=== PATIENT | male | born 1975 | race Caucasian/White ===

== ENCOUNTER 2018-03-22 00:25 | Inpatient (IN) | payer MEDICAID, SELFPAY ==
[2018-03-23 15:00] VITALS: BP 94/56; PULSE 100; RESP 18; O2SAT 100
[2018-03-23] MEDS: DEXTROSE 5% WATER 500 ML 10 ML IV (16:00)
[2018-03-23] MEDS: SODIUM CHLORIDE 0.9% 500 ML IV ×2 (17:00)
[2018-03-24] VITALS (36 sets, daily range): BP systolic 74–101; BP diastolic 44–63; PULSE 62–107; RESP 15–20; TEMP 36.5–36.8; O2SAT 93–100; BMI 18.0
[2018-03-24] MEDS: CLINDAMYCIN 900 MG/50 ML PIGGYBACK 50 MG IV ×3 (00:40→17:33)
[2018-03-24] MEDS: INSULIN ASPART 100 UNIT/ML INSULN PEN SUBCUT ×3 (00:40→13:12)
[2018-03-24] MEDS: LORazepam 2 MG/ML SYRINGE 1 MG IV ×2 (00:55→17:32)
[2018-03-24] MEDS: LACTATED RINGERS 1,000 ML 200 ML IV (01:09)
[2018-03-24 02:12] LABS: HCO3 ABG 17 mmol/L (23-27); Oxygen Saturation ABG 95 % (95-100); PCO2 ABG 28.9 mmHg (35-45); PO2 ABG 76 mmHg (80-105); pH ABG 7.36 (7.35-7.45)
[2018-03-24 02:14] LABS: TCO2 ABG 17 mmol/L (23-27)
[2018-03-24] MEDS: SODIUM CHLORIDE 0.9% 1,000 ML 1000 ML IV ×2 (03:20→05:00)
[2018-03-24] MEDS: DEXTROSE 5% WATER 500 ML 21 ML IV (04:45)
--- NOTE | 2018-03-24 05:00 | DI.RAD.S_ITS ---
PROCEDURE: XR CHEST 1V INDICATIONS: hypoxia TECHNIQUE: One view of the chest was acquired. COMPARISON: [facility], CT, ABDOMEN/PELVIS WITH CONTRAST, 03/23/2018, 9:21. [facility], CR, CHEST 1 VIEW, 03/23/2018, 16:27. FINDINGS: Surgical changes and devices: Enteric tube is seen with the tip not included in the subareolar projecting below the GE junction. Endotracheal tube is seen with the tip projecting approximately 5 cm above the ana. There is a left PICC line with the tip projecting in the mid SVC. Lungs and pleura: Small bilateral pleural effusions seen on recent CT are not well-visualized radiographically. No pneumothorax. There is dense retrocardiac opacity. Patchy right basilar atelectasis is seen, and possible layering pleural fluid. Mediastinum: Mediastinal contours appear normal. Heart size is normal. Bones and chest wall: No suspicious bony lesions. Overlying soft tissues appear unremarkable. IMPRESSION: Retrocardiac dense opacity suggestive of aspiration/atelectasis versus pneumonia. Please correlate clinically. This appears worsened since yesterday. Mild right basilar atelectasis. Support equipment as above. Dictated by: Sameer Rush M.D. on 03/24/2018 at 10:14 Approved by: Sameer Rush M.D. on 03/24/2018 at 10:16
[2018-03-24 05:22] LABS: Add Manual Diff / Slide Review YES; Hematocrit 28.2 % (41-53); Hemoglobin 9.4 g/dL (13.5-17.5); Mean Corpuscular HGB Conc 33.3 % (30-36); Mean Corpuscular Hemoglobin 28.9 PG (26-34); Mean Corpuscular Volume 86.9 fL (80-100); Platelet Count 295 X10^3/uL (150-400); Red Blood Cell Count 3.25 X10^6/uL (4.5-5.9)
[2018-03-24] MEDS: LACTATED RINGERS 1,000 ML 250 ML IV ×4 (05:23→19:39)
[2018-03-24 05:37] LABS: Lactate (Lactic Acid) 1.1 mmol/L (0.7-2.1)
[2018-03-24 05:38] LABS: Estimated Glomerular Filt Rate > 60.0 mL/min (>60); Glucose 131 mg/dL (70-100); Potassium 3.8 mmol/L (3.4-5.1); Sodium 131 mmol/L (137-145)
[2018-03-24 05:45] LABS: Calcium 5.9 mg/dL (8.4-10.2); HEMOLYSIS < 15 (0-50)
[2018-03-24 05:56] LABS: White Blood Cell Count 33.4 X10^3/uL (4.5-11.0)
[2018-03-24] MEDS: GENTAMICIN 120 MG in SODIUM CHLORIDE 0.9% 100 ML 103 ML IV ×2 (06:07→18:16)
[2018-03-24] MEDS: CALCIUM GLUCONATE 9.3 MEQ in SODIUM CHLORIDE 0.9% 50 ML 70 ML IV (06:24)
[2018-03-24] MEDS: MORPHINE PCA 30 MG/30 ML PCA.VIAL IV ×2 (06:33→21:09)
[2018-03-24 06:39] LABS: Neutrophils Absolute Manual 32398 /uL (3000-5900); Nucleated Red Blood Cells 1 #/Diff; Total Cells Counted 100
[2018-03-24 06:43] LABS: Anisocytosis 2+
[2018-03-24 06:45] LABS: Poikilocytosis 1+
[2018-03-24 06:46] LABS: Burr Cells 1+
--- NOTE | 2018-03-24 07:58 | PM.PNPO.1 ---
Exam Vital Signs (past 8 hours): Vital Signs - 8 hr 03/24/18 00:00 03/24/18 00:30 03/24/18 01:00 Temperature 97.9 F Pulse Rate 62 106 H Respiratory Rate 18 18 Blood Pressure 84/54 L 82/51 L Pulse Oximetry 100 03/24/18 02:13 03/24/18 03:00 03/24/18 04:00 Temperature Pulse Rate 107 H 105 H 98 H Respiratory Rate 18 18 18 Blood Pressure 83/50 L 78/53 L 79/49 L Pulse Oximetry 100 100 03/24/18 04:27 03/24/18 05:00 03/24/18 06:00 Temperature 98.0 F Pulse Rate 95 H 100 H Respiratory Rate 16 16 Blood Pressure 86/49 L 84/52 L Pulse Oximetry 100 03/24/18 07:01 Temperature Pulse Rate 97 H Respiratory Rate 16 Blood Pressure 82/51 L Pulse Oximetry Temperature 98.0 F Temperature 97.9 F Pulse Rate 97 Pulse Rate 100 Pulse Rate 95 Pulse Rate 98 Pulse Rate 105 Pulse Rate 107 Pulse Rate 106 Pulse Rate 62 Respiratory Rate 16 Respiratory Rate 16 Respiratory Rate 16 Respiratory Rate 18 Respiratory Rate 18 Respiratory Rate 18 Respiratory Rate 18 Respiratory Rate 18 Blood Pressure 82/51 Blood Pressure 84/52 Blood Pressure 86/49 Blood Pressure 79/49 Blood Pressure 78/53 Blood Pressure 83/50 Blood Pressure 82/51 Blood Pressure 84/54 Pulse Oximetry 100 Pulse Oximetry 100 Pulse Oximetry 100 Pulse Oximetry 100 Pulse Oximetry 100 Oxygen Delivery Method Mechanical Ventilation Oxygen Delivery Method Mechanical Ventilation Oxygen Delivery Method Mechanical Ventilation Oxygen Delivery Method Mechanical Ventilation Oxygen Flow Rate 30 Oxygen Flow Rate 30 Narrative Exam Narrative: Patient remains intubated on ventilator with the above settings. However, he is arousable on minimal Diprivan drip receiving as needed Ativan intravenously. Opens eyes to commands. Moves all extremities. Regular rate and rhythm. Strip shows sinus rhythm at 96 beats per minute. Urine output is marginal at just about 30 cc/hour overnight in response to fluid boluses and single unit of blood transfusion. Overall he is approximately 10 L positive since surgery yesterday afternoon. CVP measures 4 currently but has been as high as 6 overnight with fluid boluses Abdomen is soft and minimally distended currently. Appropriately tender to palpation. Wound VAC remains in place with good suction. Isacc-Lopez drains are collecting serous fluid only. Output has slowed overnight to approximately 50 cc every 2-3 hours per drain. Ileostomy is pink and viable and well perfused. No output in the appliance. Extremities show no clubbing or cyanosis. He no longer exhibits mottling at the knees and pretibial areas. He is beginning to manifest trace edema of the hands and feet. Objective Labs CBC & Chem 7: 03/24/18 05:00 03/24/18 05:00 Labs: Laboratory Results - last 24 hr 03/21/18 03/21/18 03/21/18 20:34 20:34 20:34 WBC 17.0 H RBC 2.93 L Hgb 8.5 L Hct 26.0 L MCV 88.9 MCH 29.0 MCHC 32.7 RDW 14.7 Plt Count 782 H Neutrophils % Total Counted Seg Neuts % (Manual) 65 Band Neutrophils % 23 H Lymphocytes % Seg Neutrophils % Lymphocytes % (Manual) 6 L Monocytes % Eosinophils % Monocytes % (Manual) Basophils % Metamyelocytes % 1 H Myelocytes % 2 H Nucleated RBC % Neutrophils # (Manual) 57389 H Absolute Neutrophils Monocytes (Manual) 3 Nucleated RBCs Differential Comment Toxic Granulation POSITIVE H Hypochromasia 2+ H Anisocytosis Poikilocytosis Yulissa Cells Specimen Type pCO2 pO2 HCO3 Total CO2 Base Excess ABG pH ABG pCO2 ABG pO2 ABG HCO3 ABG Total CO2 ABG O2 Saturation ABG Base Excess O2 Sat Above Inf Vena Cav FiO2 Sodium 122 L Potassium 3.6 Chloride 87.0 L Carbon Dioxide 27.0 BUN 13.0 Creatinine 0.60 L Estimated GFR Estimated GFR (MDRD) >60.0 BUN/Creatinine Ratio 21.7 Glucose 125 H Lactic Acid 1.0 Lactate Calcium 7.3 L Iron TIBC % Saturation Transferrin Ferritin Total Bilirubin 0.6 AST 27 ALT 32 Alkaline Phosphatase 117 Total Protein 5.4 L Albumin 2.2 L Globulin 3.2 Albumin/Globulin Ratio 0.7 L Amylase < 30 L Lipase < 10 L Vitamin B12 Folate Urine WBC Ur Culture Indicated? Stool Aeromonas Cult Stl C. cayetanensis PCR Stool Rotavirus A PCR Stool Astrovirus (PCR) Stool Campylobacter PCR Stool Cryptosporidium PCR Stl Enterotoxigenic E PCR Stool EPEC (PCR) Stool EAEC (PCR) Stool Giardia Lamblia PCR Stool Sapovirus (PCR) Stl Shiga-like Tx 1 PCR Stl P. shigelloides PCR Stl Shigella/EIEC PCR St Y.enterocolitica PCR Stl Vibrio cholera PCR Stl Norovirus GI/GII PCR Adenovirus (PCR) C. difficile Tox (PCR) E. histolytica Antibody E. coli (PCR) Salmonella (PCR) MRSA Surveill Initial Blood Type Antibody Screen Antibody Identification Antigen Identification Crossmatch (AHG) 03/21/18 03/22/18 03/22/18 22:09 06:05 06:05 WBC 16.3 H RBC 2.52 L Hgb 7.4 L Hct 22.5 L MCV 89.4 MCH 29.3 MCHC 32.7 RDW 14.8 Plt Count 738 H Neutrophils % Total Counted Seg Neuts % (Manual) 70 Band Neutrophils % 22 H Lymphocytes % Seg Neutrophils % Lymphocytes % (Manual) 6 L Monocytes % Eosinophils % Monocytes % (Manual) Basophils % Metamyelocytes % Myelocytes % Nucleated RBC % 2 H Neutrophils # (Manual) 56661 H Absolute Neutrophils Monocytes (Manual) 2 Nucleated RBCs Differential Comment Toxic Granulation POSITIVE H Hypochromasia 2+ H Anisocytosis Poikilocytosis [place] Cells Specimen Type pCO2 pO2 HCO3 Total CO2 Base Excess ABG pH ABG pCO2 ABG pO2 ABG HCO3 ABG Total CO2 ABG O2 Saturation ABG Base Excess O2 Sat Above Inf Vena Cav FiO2 Sodium 130 L Potassium 3.8 Chloride 96.0 L Carbon Dioxide 26.0 BUN 10.0 Creatinine 0.40 L Estimated GFR Estimated GFR (MDRD) >60.0 BUN/Creatinine Ratio 25.0 Glucose 254 H D Lactic Acid Lactate Calcium 7.1 L Iron TIBC % Saturation Transferrin Ferritin Total Bilirubin AST ALT Alkaline Phosphatase Total Protein Albumin Globulin Albumin/Globulin Ratio Amylase Lipase Vitamin B12 Folate Urine WBC 1-5/HPF Ur Culture Indicated? SPECIMEN CULTURED Stool Aeromonas Cult Stl C. cayetanensis PCR Stool Rotavirus A PCR Stool Astrovirus (PCR) Stool Campylobacter PCR Stool Cryptosporidium PCR Stl Enterotoxigenic E PCR Stool EPEC (PCR) Stool EAEC (PCR) Stool Giardia Lamblia PCR Stool Sapovirus (PCR) Stl Shiga-like Tx 1 PCR Stl P. shigelloides PCR Stl Shigella/EIEC PCR St Y.enterocolitica PCR Stl Vibrio cholera PCR Stl Norovirus GI/GII PCR Adenovirus (PCR) C. difficile Tox (PCR) E. histolytica Antibody E. coli (PCR) Salmonella (PCR) MRSA Surveill Initial Blood Type Antibody Screen Antibody Identification Antigen Identification Crossmatch (AHG) 03/22/18 03/22/18 03/22/18 06:05 06:05 07:15 WBC RBC Hgb Hct MCV MCH MCHC RDW Plt Count Neutrophils % Total Counted Seg Neuts % (Manual) Band Neutrophils % Lymphocytes % Seg Neutrophils % Lymphocytes % (Manual) Monocytes % Eosinophils % Monocytes % (Manual) Basophils % Metamyelocytes % Myelocytes % Nucleated RBC % Neutrophils # (Manual) Absolute Neutrophils Monocytes (Manual) Nucleated RBCs Differential Comment Toxic Granulation Hypochromasia Anisocytosis Poikilocytosis Yulissa Cells Specimen Type pCO2 pO2 HCO3 Total CO2 Base Excess ABG pH ABG pCO2 ABG pO2 ABG HCO3 ABG Total CO2 ABG O2 Saturation ABG Base Excess O2 Sat Above Inf Vena Cav FiO2 Sodium Potassium Chloride Carbon Dioxide BUN Creatinine Estimated GFR Estimated GFR (MDRD) BUN/Creatinine Ratio Glucose Lactic Acid Lactate Calcium Iron 24 L TIBC 131 L % Saturation 18 L Transferrin < 80.00 L Ferritin 1050.0 H Total Bilirubin AST ALT Alkaline Phosphatase Total Protein Albumin Globulin Albumin/Globulin Ratio Amylase Lipase Vitamin B12 Folate Urine WBC Ur Culture Indicated? Stool Aeromonas Cult Stl C. cayetanensis PCR Stool Rotavirus A PCR Stool Astrovirus (PCR) Stool Campylobacter PCR Stool Cryptosporidium PCR Stl Enterotoxigenic E PCR Stool EPEC (PCR) Stool EAEC (PCR) Stool Giardia Lamblia PCR Stool Sapovirus (PCR) Stl Shiga-like Tx 1 PCR Stl P. shigelloides PCR Stl Shigella/EIEC PCR St Y.enterocolitica PCR Stl Vibrio cholera PCR Stl Norovirus GI/GII PCR Adenovirus (PCR) C. difficile Tox (PCR) E. histolytica Antibody E. coli (PCR) Salmonella (PCR) MRSA Surveill Initial Blood Type O Positive Antibody Screen Positive Antibody Identification Anti-K Antigen Identification K Antigen - NEGATIVE Crossmatch (AHG) See Detail 03/22/18 03/22/18 03/23/18 08:23 Unknown 05:20 WBC RBC Hgb Hct MCV MCH MCHC RDW Plt Count Neutrophils % Total Counted Seg Neuts % (Manual) Band Neutrophils % Lymphocytes % Seg Neutrophils % Lymphocytes % (Manual) Monocytes % Eosinophils % Monocytes % (Manual) Basophils % Metamyelocytes % Myelocytes % Nucleated RBC % Neutrophils # (Manual) Absolute Neutrophils Monocytes (Manual) Nucleated RBCs Differential Comment Toxic Granulation Hypochromasia Anisocytosis Poikilocytosis Yulissa Cells Specimen Type pCO2 pO2 HCO3 Total CO2 Base Excess ABG pH ABG pCO2 ABG pO2 ABG HCO3 ABG Total CO2 ABG O2 Saturation ABG Base Excess O2 Sat Above Inf Vena Cav FiO2 Sodium 135 L Potassium 3.8 Chloride 103.0 Carbon Dioxide 19.0 L BUN 15.0 Creatinine 0.40 L Estimated GFR Estimated GFR (MDRD) >60.0 BUN/Creatinine Ratio 37.5 H Glucose 141 H D Lactic Acid Lactate Calcium 7.6 L Iron TIBC % Saturation Transferrin Ferritin Total Bilirubin AST ALT Alkaline Phosphatase Total Protein Albumin Globulin Albumin/Globulin Ratio Amylase Lipase Vitamin B12 >1000 H Folate 7.4 Urine WBC Ur Culture Indicated? Stool Aeromonas Cult NOT DETECTED Stl C. cayetanensis PCR NOT DETECTED Stool Rotavirus A PCR NOT DETECTED Stool Astrovirus (PCR) NOT DETECTED Stool Campylobacter PCR NOT DETECTED Stool Cryptosporidium PCR NOT DETECTED Stl Enterotoxigenic E PCR NOT DETECTED Stool EPEC (PCR) NOT DETECTED Stool EAEC (PCR) NOT DETECTED Stool Giardia Lamblia PCR NOT DETECTED Stool Sapovirus (PCR) NOT DETECTED Stl Shiga-like Tx 1 PCR NOT DETECTED Stl P. shigelloides PCR NOT DETECTED Stl Shigella/EIEC PCR NOT DETECTED St Y.enterocolitica PCR NOT DETECTED Stl Vibrio cholera PCR NOT DETECTED Stl Norovirus GI/GII PCR NOT DETECTED Adenovirus (PCR) NOT DETECTED C. difficile Tox (PCR) NOT DETECTED E. histolytica Antibody NOT DETECTED E. coli (PCR) NOT DETECTED Salmonella (PCR) NOT DETECTED MRSA Surveill Initial Blood Type Antibody Screen Antibody Identification Antigen Identification Crossmatch (AHG) 03/23/18 03/23/18 03/23/18 05:20 16:00 16:49 WBC 35.7 H* D RBC 4.62 Hgb 13.0 L Hct 40.7 L MCV 88.1 MCH 28.0 MCHC 31.8 RDW 17.4 H Plt Count 741 H Neutrophils % Total Counted Seg Neuts % (Manual) 68 Band Neutrophils % 25 H Lymphocytes % Seg Neutrophils % Lymphocytes % (Manual) 3 L Monocytes % Eosinophils % Monocytes % (Manual) Basophils % Metamyelocytes % Myelocytes % 1 H Nucleated RBC % Neutrophils # (Manual) 75676 H Absolute Neutrophils Monocytes (Manual) 3 Nucleated RBCs Differential Comment Toxic Granulation POSITIVE H Hypochromasia Anisocytosis 2+ H Poikilocytosis [place] Cells Specimen Type RT RADIAL pCO2 38.4 pO2 170 H HCO3 17.4 L Total CO2 19 L Base Excess -10.0 L ABG pH 7.26 L* ABG pCO2 ABG pO2 ABG HCO3 ABG Total CO2 ABG O2 Saturation ABG Base Excess O2 Sat Above Inf Vena Cav 99.0 FiO2 0.50 Sodium Potassium Chloride Carbon Dioxide BUN Creatinine Estimated GFR Estimated GFR (MDRD) BUN/Creatinine Ratio Glucose Lactic Acid Lactate Calcium Iron TIBC % Saturation Transferrin Ferritin Total Bilirubin AST ALT Alkaline Phosphatase Total Protein Albumin Globulin Albumin/Globulin Ratio Amylase Lipase Vitamin B12 Folate Urine WBC Ur Culture Indicated? Stool Aeromonas Cult Stl C. cayetanensis PCR Stool Rotavirus A PCR Stool Astrovirus (PCR) Stool Campylobacter PCR Stool Cryptosporidium PCR Stl Enterotoxigenic E PCR Stool EPEC (PCR) Stool EAEC (PCR) Stool Giardia Lamblia PCR Stool Sapovirus (PCR) Stl Shiga-like Tx 1 PCR Stl P. shigelloides PCR Stl Shigella/EIEC PCR St Y.enterocolitica PCR Stl Vibrio cholera PCR Stl Norovirus GI/GII PCR Adenovirus (PCR) C. difficile Tox (PCR) E. histolytica Antibody E. coli (PCR) Salmonella (PCR) MRSA Surveill Initial Positive for MRSA H Blood Type Antibody Screen Antibody Identification Antigen Identification Crossmatch (AHG) 03/23/18 03/23/18 03/23/18 16:50 16:50 Unknown WBC 38.2 H* RBC 3.55 L Hgb 11.0 L 10.1 L Hct 34.9 L 31.3 L MCV 88.0 MCH 28.5 MCHC 32.3 RDW 17.5 H Plt Count 619 H Neutrophils % 96.9 H Total Counted Seg Neuts % (Manual) Band Neutrophils % Lymphocytes % 2.4 L Seg Neutrophils % Lymphocytes % (Manual) Monocytes % 0.5 L Eosinophils % 0.0 L Monocytes % (Manual) Basophils % 0.2 Metamyelocytes % Myelocytes % Nucleated RBC % Neutrophils # (Manual) Absolute Neutrophils 59093 H Monocytes (Manual) Nucleated RBCs Differential Comment Toxic Granulation Hypochromasia Anisocytosis Poikilocytosis Yulissa Cells Specimen Type pCO2 pO2 HCO3 Total CO2 Base Excess ABG pH ABG pCO2 ABG pO2 ABG HCO3 ABG Total CO2 ABG O2 Saturation ABG Base Excess O2 Sat Above Inf Vena Cav FiO2 Sodium 132 L Potassium 3.9 Chloride 108.0 H Carbon Dioxide 16.0 L BUN 14.0 Creatinine 0.40 L Estimated GFR Estimated GFR (MDRD) >60.0 BUN/Creatinine Ratio 35.0 H Glucose 133 H Lactic Acid Lactate Calcium 5.9 L* D Iron TIBC % Saturation Transferrin Ferritin Total Bilirubin AST ALT Alkaline Phosphatase Total Protein Albumin Globulin Albumin/Globulin Ratio Amylase Lipase Vitamin B12 Folate Urine WBC Ur Culture Indicated? Stool Aeromonas Cult Stl C. cayetanensis PCR Stool Rotavirus A PCR Stool Astrovirus (PCR) Stool Campylobacter PCR Stool Cryptosporidium PCR Stl Enterotoxigenic E PCR Stool EPEC (PCR) Stool EAEC (PCR) Stool Giardia Lamblia PCR Stool Sapovirus (PCR) Stl Shiga-like Tx 1 PCR Stl P. shigelloides PCR Stl Shigella/EIEC PCR St Y.enterocolitica PCR Stl Vibrio cholera PCR Stl Norovirus GI/GII PCR Adenovirus (PCR) C. difficile Tox (PCR) E. histolytica Antibody E. coli (PCR) Salmonella (PCR) MRSA Surveill Initial Blood Type Antibody Screen Antibody Identification Antigen Identification Crossmatch (AHG) 03/23/18 03/24/18 03/24/18 Unknown 01:40 05:00 WBC 40.7 H* 33.4 H* RBC 3.83 L 3.25 L Hgb 10.8 L 9.4 L Hct 34.1 L 28.2 L MCV 89.2 86.9 MCH 28.2 28.9 MCHC 31.6 33.3 RDW 17.9 H 17.0 H Plt Count 588 H 295 Neutrophils % 97.8 H Total Counted 100 Seg Neuts % (Manual) Band Neutrophils % 19.0 H Lymphocytes % 1.6 L Seg Neutrophils % 78.0 H Lymphocytes % (Manual) 1.0 L Monocytes % 0.3 L Eosinophils % 0.1 L Monocytes % (Manual) 1.0 L Basophils % 0.2 Metamyelocytes % 1.0 H Myelocytes % Nucleated RBC % Neutrophils # (Manual) 67104 H Absolute Neutrophils 75714 H Monocytes (Manual) Nucleated RBCs 1 H Differential Comment Not Reportable Toxic Granulation Hypochromasia Anisocytosis 2+ H Poikilocytosis 1+ H Yulissa Cells 1+ H Specimen Type pCO2 pO2 HCO3 Total CO2 Base Excess ABG pH 7.36 ABG pCO2 28.9 L ABG pO2 76 L ABG HCO3 17 L ABG Total CO2 17 L ABG O2 Saturation 95 ABG Base Excess -9.0 L O2 Sat Above Inf Vena Cav FiO2 0.30 Sodium Potassium Chloride Carbon Dioxide BUN Creatinine Estimated GFR Estimated GFR (MDRD) BUN/Creatinine Ratio Glucose Lactic Acid Lactate Calcium Iron TIBC % Saturation Transferrin Ferritin Total Bilirubin AST ALT Alkaline Phosphatase Total Protein Albumin Globulin Albumin/Globulin Ratio Amylase Lipase Vitamin B12 Folate Urine WBC Ur Culture Indicated? Stool Aeromonas Cult Stl C. cayetanensis PCR Stool Rotavirus A PCR Stool Astrovirus (PCR) Stool Campylobacter PCR Stool Cryptosporidium PCR Stl Enterotoxigenic E PCR Stool EPEC (PCR) Stool EAEC (PCR) Stool Giardia Lamblia PCR Stool Sapovirus (PCR) Stl Shiga-like Tx 1 PCR Stl P. shigelloides PCR Stl Shigella/EIEC PCR St Y.enterocolitica PCR Stl Vibrio cholera PCR Stl Norovirus GI/GII PCR Adenovirus (PCR) C. difficile Tox (PCR) E. histolytica Antibody E. coli (PCR) Salmonella (PCR) MRSA Surveill Initial Blood Type Antibody Screen Antibody Identification Antigen Identification Crossmatch (AHG) 03/24/18 03/24/18 05:00 05:00 WBC RBC Hgb Hct MCV MCH MCHC RDW Plt Count Neutrophils % Total Counted Seg Neuts % (Manual) Band Neutrophils % Lymphocytes % Seg Neutrophils % Lymphocytes % (Manual) Monocytes % Eosinophils % Monocytes % (Manual) Basophils % Metamyelocytes % Myelocytes % Nucleated RBC % Neutrophils # (Manual) Absolute Neutrophils Monocytes (Manual) Nucleated RBCs Differential Comment Toxic Granulation Hypochromasia Anisocytosis Poikilocytosis [place] Cells Specimen Type pCO2 pO2 HCO3 Total CO2 Base Excess ABG pH ABG pCO2 ABG pO2 ABG HCO3 ABG Total CO2 ABG O2 Saturation ABG Base Excess O2 Sat Above Inf Vena Cav FiO2 Sodium 131 L Potassium 3.8 Chloride 109.0 H Carbon Dioxide 17.0 L BUN 16.0 Creatinine 0.50 L Estimated GFR > 60.0 Estimated GFR (MDRD) BUN/Creatinine Ratio 32.0 H Glucose 131 H Lactic Acid Lactate 1.1 Calcium 5.9 L* Iron TIBC % Saturation Transferrin Ferritin Total Bilirubin AST ALT Alkaline Phosphatase Total Protein Albumin Globulin Albumin/Globulin Ratio Amylase Lipase Vitamin B12 Folate Urine WBC Ur Culture Indicated? Stool Aeromonas Cult Stl C. cayetanensis PCR Stool Rotavirus A PCR Stool Astrovirus (PCR) Stool Campylobacter PCR Stool Cryptosporidium PCR Stl Enterotoxigenic E PCR Stool EPEC (PCR) Stool EAEC (PCR) Stool Giardia Lamblia PCR Stool Sapovirus (PCR) Stl Shiga-like Tx 1 PCR Stl P. shigelloides PCR Stl Shigella/EIEC PCR St Y.enterocolitica PCR Stl Vibrio cholera PCR Stl Norovirus GI/GII PCR Adenovirus (PCR) C. difficile Tox (PCR) E. histolytica Antibody E. coli (PCR) Salmonella (PCR) MRSA Surveill Initial Blood Type Antibody Screen Antibody Identification Antigen Identification Crossmatch (AHG) A/P Post-op Time Spent With Patient Total time spent is greater than 50% in coordination of care (as documented) at patient's floor/unit 43-year-old male postoperative day 1 from subtotal colectomy emergently for perforated toxic megacolon secondary to ulcerative colitis. He is responding to resuscitation but continues to require significant volume as expected. We will continue aggressive isotonic fluid resuscitation. If he continues to respond well then potentially start total parenteral nutrition this evening or tomorrow depending on his status. Continue triple antibiotics consisting of Levaquin, gentamicin, and clindamycin. Continue ventilatory support current we with low level of sedation as he is likely to continue to experience significant fluid shifts with pulmonary edema. I anticipate that his pulmonary status will decline in the next 24-48 hours. Once volume status is stable then we could wean to extubate at that time. DVT prophylaxis consisted of SCDs and subcutaneous Lovenox daily. Momin catheter remains in place as necessary for prolonged immobility in the ICU requiring strict I&Os. Consult has been initiated the wound care nurse for wound VAC and ostomy management. Supplement calcium today. Appreciate Internal Medicine assistance. Blood sugars are well controlled at the most like scale insulin. Continue to monitor. Patient's prognosis remains quite guarded as previously documented. 25 - 35 minutes
[2018-03-24] MEDS: PANTOPRAZOLE 40 MG VIAL IV (08:59)
--- NOTE | 2018-03-24 10:06 | CM.DPNOTE ---
DCP Ongoing Assessment: Case reviewed, EMR reviewed, and met with patient???s nurse in ICU, Ashley. Did not speak with the patient who is on ventilator. Please see ???hard copy??? Initial DCP Assmt and Consult note copied and with patient face sheet, or review these notes in [facility]. Pt now in ICU, previously in room 212. He underwent a very extensive abdominal surgery with Dr. Levin on 03/23 (OP note also copied and avail with face sheet, and also avail in [employer]). Per MD Levin note on 03/24, pt is arousable and on ventilator, sedated, able to move extremities on command. Per nurse Ashley, pt remains on ventilator, has ileostomy, is receiving IV fluids, and they may start TPN later today. He is receiving IV ABX x 3 types. She states no patient family members have been in to see pt since surgery as far as she knows. Primary payor is: Remains as self-pay; unable to verify with patient. Plan: DCP to follow. Unsure of needs at this point post-operatively, and pt unable to communicate. Patti Aguero RN
[2018-03-24] MEDS: SODIUM CHLORIDE 0.9% FLUSH 10 ML IV ×3 (10:11→21:08)
[2018-03-24] MEDS: levoFLOXacin 750 MG/150 ML PIGGYBACK 100 MG IV (11:58)
[2018-03-24] MEDS: MINERAL OIL/PETROL OPHTH OINT 3.5 GM 1 APPLIC EYE-BOTH (13:12)
[2018-03-24] MEDS: PROPOFOL 1,000 MG/100 ML VIAL 3.996 MG IV (14:29)
--- NOTE | 2018-03-24 14:59 | PC.NURSE ---
pt intubated and sedated. propofol gtt at 12mcg/kg/min. ivf infusing 250ml/hr. art line intact and correlates with cuff. CVP 3. etco2 not working on monitor at this time. pt's mom in room. oral care done q2hr. wrists unrestrained at this time.
--- NOTE | 2018-03-24 15:03 | PC.NURSE ---
morphine continuous 8hr total 26.6ml
--- NOTE | 2018-03-24 15:18 | PM.PN.1 ---
Subjective Interval history: Patient remains on vent postop colectomy for perforated bowel. Date Patient Seen: 03/24/18 Time Patient Seen: 10:00 Exam Vital Signs (past 8 hours): Vital Signs - 8 hr 03/24/18 08:09 03/24/18 08:40 03/24/18 09:54 Temperature 98 F Pulse Rate 96 H Respiratory Rate 16 Blood Pressure 94/52 L Pulse Oximetry 100 100 100 03/24/18 10:07 03/24/18 12:00 03/24/18 12:47 Temperature 98.3 F 98.1 F Pulse Rate 98 H Respiratory Rate 16 16 Blood Pressure 96/50 L 82/44 L Pulse Oximetry 100 100 100 Temperature 98.1 F Temperature 98.3 F Temperature 98 F Pulse Rate 98 Pulse Rate 96 Respiratory Rate 16 Respiratory Rate 16 Respiratory Rate 16 Blood Pressure 82/44 Blood Pressure 96/50 Blood Pressure 94/52 Pulse Oximetry 100 Pulse Oximetry 100 Pulse Oximetry 100 Pulse Oximetry 100 Pulse Oximetry 100 Pulse Oximetry 100 Fraction of Inspired Oxygen 30 Oxygen Delivery Method Mechanical Ventilation Oxygen Delivery Method Mechanical Ventilation Oxygen Delivery Method Mechanical Ventilation Objective Labs CBC & Chem 7: 03/24/18 05:00 03/24/18 05:00 Labs: Laboratory Results - last 24 hr 03/21/18 03/21/18 03/21/18 20:34 20:34 20:34 WBC 17.0 H RBC 2.93 L Hgb 8.5 L Hct 26.0 L MCV 88.9 MCH 29.0 MCHC 32.7 RDW 14.7 Plt Count 782 H Neutrophils % Total Counted Seg Neuts % (Manual) 65 Band Neutrophils % 23 H Lymphocytes % Seg Neutrophils % Lymphocytes % (Manual) 6 L Monocytes % Eosinophils % Monocytes % (Manual) Basophils % Metamyelocytes % 1 H Myelocytes % 2 H Nucleated RBC % Neutrophils # (Manual) 02305 H Absolute Neutrophils Monocytes (Manual) 3 Nucleated RBCs Differential Comment Toxic Granulation POSITIVE H Hypochromasia 2+ H Anisocytosis Poikilocytosis Yulissa Cells Specimen Type pCO2 pO2 HCO3 Total CO2 Base Excess ABG pH ABG pCO2 ABG pO2 ABG HCO3 ABG Total CO2 ABG O2 Saturation ABG Base Excess O2 Sat Above Inf Vena Cav FiO2 Sodium 122 L Potassium 3.6 Chloride 87.0 L Carbon Dioxide 27.0 BUN 13.0 Creatinine 0.60 L Estimated GFR Estimated GFR (MDRD) >60.0 BUN/Creatinine Ratio 21.7 Glucose 125 H Lactic Acid 1.0 Lactate Calcium 7.3 L Iron TIBC % Saturation Transferrin Ferritin Total Bilirubin 0.6 AST 27 ALT 32 Alkaline Phosphatase 117 Total Protein 5.4 L Albumin 2.2 L Globulin 3.2 Albumin/Globulin Ratio 0.7 L Amylase < 30 L Lipase < 10 L Vitamin B12 Folate Urine WBC Ur Culture Indicated? Stool Aeromonas Cult Stl C. cayetanensis PCR Stool Rotavirus A PCR Stool Astrovirus (PCR) Stool Campylobacter PCR Stool Cryptosporidium PCR Stl Enterotoxigenic E PCR Stool EPEC (PCR) Stool EAEC (PCR) Stool Giardia Lamblia PCR Stool Sapovirus (PCR) Stl Shiga-like Tx 1 PCR Stl P. shigelloides PCR Stl Shigella/EIEC PCR St Y.enterocolitica PCR Stl Vibrio cholera PCR Stl Norovirus GI/GII PCR Adenovirus (PCR) C. difficile Tox (PCR) E. histolytica Antibody E. coli (PCR) Salmonella (PCR) MRSA Surveill Initial Blood Type Antibody Screen Antibody Identification Antigen Identification Crossmatch (AHG) 03/21/18 03/22/18 03/22/18 22:09 06:05 06:05 WBC 16.3 H RBC 2.52 L Hgb 7.4 L Hct 22.5 L MCV 89.4 MCH 29.3 MCHC 32.7 RDW 14.8 Plt Count 738 H Neutrophils % Total Counted Seg Neuts % (Manual) 70 Band Neutrophils % 22 H Lymphocytes % Seg Neutrophils % Lymphocytes % (Manual) 6 L Monocytes % Eosinophils % Monocytes % (Manual) Basophils % Metamyelocytes % Myelocytes % Nucleated RBC % 2 H Neutrophils # (Manual) 13726 H Absolute Neutrophils Monocytes (Manual) 2 Nucleated RBCs Differential Comment Toxic Granulation POSITIVE H Hypochromasia 2+ H Anisocytosis Poikilocytosis Hettinger Cells Specimen Type pCO2 pO2 HCO3 Total CO2 Base Excess ABG pH ABG pCO2 ABG pO2 ABG HCO3 ABG Total CO2 ABG O2 Saturation ABG Base Excess O2 Sat Above Inf Vena Cav FiO2 Sodium 130 L Potassium 3.8 Chloride 96.0 L Carbon Dioxide 26.0 BUN 10.0 Creatinine 0.40 L Estimated GFR Estimated GFR (MDRD) >60.0 BUN/Creatinine Ratio 25.0 Glucose 254 H D Lactic Acid Lactate Calcium 7.1 L Iron TIBC % Saturation Transferrin Ferritin Total Bilirubin AST ALT Alkaline Phosphatase Total Protein Albumin Globulin Albumin/Globulin Ratio Amylase Lipase Vitamin B12 Folate Urine WBC 1-5/HPF Ur Culture Indicated? SPECIMEN CULTURED Stool Aeromonas Cult Stl C. cayetanensis PCR Stool Rotavirus A PCR Stool Astrovirus (PCR) Stool Campylobacter PCR Stool Cryptosporidium PCR Stl Enterotoxigenic E PCR Stool EPEC (PCR) Stool EAEC (PCR) Stool Giardia Lamblia PCR Stool Sapovirus (PCR) Stl Shiga-like Tx 1 PCR Stl P. shigelloides PCR Stl Shigella/EIEC PCR St Y.enterocolitica PCR Stl Vibrio cholera PCR Stl Norovirus GI/GII PCR Adenovirus (PCR) C. difficile Tox (PCR) E. histolytica Antibody E. coli (PCR) Salmonella (PCR) MRSA Surveill Initial Blood Type Antibody Screen Antibody Identification Antigen Identification Crossmatch (AHG) 03/22/18 03/22/18 03/22/18 06:05 06:05 07:15 WBC RBC Hgb Hct MCV MCH MCHC RDW Plt Count Neutrophils % Total Counted Seg Neuts % (Manual) Band Neutrophils % Lymphocytes % Seg Neutrophils % Lymphocytes % (Manual) Monocytes % Eosinophils % Monocytes % (Manual) Basophils % Metamyelocytes % Myelocytes % Nucleated RBC % Neutrophils # (Manual) Absolute Neutrophils Monocytes (Manual) Nucleated RBCs Differential Comment Toxic Granulation Hypochromasia Anisocytosis Poikilocytosis Yulissa Cells Specimen Type pCO2 pO2 HCO3 Total CO2 Base Excess ABG pH ABG pCO2 ABG pO2 ABG HCO3 ABG Total CO2 ABG O2 Saturation ABG Base Excess O2 Sat Above Inf Vena Cav FiO2 Sodium Potassium Chloride Carbon Dioxide BUN Creatinine Estimated GFR Estimated GFR (MDRD) BUN/Creatinine Ratio Glucose Lactic Acid Lactate Calcium Iron 24 L TIBC 131 L % Saturation 18 L Transferrin < 80.00 L Ferritin 1050.0 H Total Bilirubin AST ALT Alkaline Phosphatase Total Protein Albumin Globulin Albumin/Globulin Ratio Amylase Lipase Vitamin B12 Folate Urine WBC Ur Culture Indicated? Stool Aeromonas Cult Stl C. cayetanensis PCR Stool Rotavirus A PCR Stool Astrovirus (PCR) Stool Campylobacter PCR Stool Cryptosporidium PCR Stl Enterotoxigenic E PCR Stool EPEC (PCR) Stool EAEC (PCR) Stool Giardia Lamblia PCR Stool Sapovirus (PCR) Stl Shiga-like Tx 1 PCR Stl P. shigelloides PCR Stl Shigella/EIEC PCR St Y.enterocolitica PCR Stl Vibrio cholera PCR Stl Norovirus GI/GII PCR Adenovirus (PCR) C. difficile Tox (PCR) E. histolytica Antibody E. coli (PCR) Salmonella (PCR) MRSA Surveill Initial Blood Type O Positive Antibody Screen Positive Antibody Identification Anti-K Antigen Identification K Antigen - NEGATIVE Crossmatch (AHG) See Detail 03/22/18 03/22/18 03/23/18 08:23 Unknown 05:20 WBC RBC Hgb Hct MCV MCH MCHC RDW Plt Count Neutrophils % Total Counted Seg Neuts % (Manual) Band Neutrophils % Lymphocytes % Seg Neutrophils % Lymphocytes % (Manual) Monocytes % Eosinophils % Monocytes % (Manual) Basophils % Metamyelocytes % Myelocytes % Nucleated RBC % Neutrophils # (Manual) Absolute Neutrophils Monocytes (Manual) Nucleated RBCs Differential Comment Toxic Granulation Hypochromasia Anisocytosis Poikilocytosis Yulissa Cells Specimen Type pCO2 pO2 HCO3 Total CO2 Base Excess ABG pH ABG pCO2 ABG pO2 ABG HCO3 ABG Total CO2 ABG O2 Saturation ABG Base Excess O2 Sat Above Inf Vena Cav FiO2 Sodium 135 L Potassium 3.8 Chloride 103.0 Carbon Dioxide 19.0 L BUN 15.0 Creatinine 0.40 L Estimated GFR Estimated GFR (MDRD) >60.0 BUN/Creatinine Ratio 37.5 H Glucose 141 H D Lactic Acid Lactate Calcium 7.6 L Iron TIBC % Saturation Transferrin Ferritin Total Bilirubin AST ALT Alkaline Phosphatase Total Protein Albumin Globulin Albumin/Globulin Ratio Amylase Lipase Vitamin B12 >1000 H Folate 7.4 Urine WBC Ur Culture Indicated? Stool Aeromonas Cult NOT DETECTED Stl C. cayetanensis PCR NOT DETECTED Stool Rotavirus A PCR NOT DETECTED Stool Astrovirus (PCR) NOT DETECTED Stool Campylobacter PCR NOT DETECTED Stool Cryptosporidium PCR NOT DETECTED Stl Enterotoxigenic E PCR NOT DETECTED Stool EPEC (PCR) NOT DETECTED Stool EAEC (PCR) NOT DETECTED Stool Giardia Lamblia PCR NOT DETECTED Stool Sapovirus (PCR) NOT DETECTED Stl Shiga-like Tx 1 PCR NOT DETECTED Stl P. shigelloides PCR NOT DETECTED Stl Shigella/EIEC PCR NOT DETECTED St Y.enterocolitica PCR NOT DETECTED Stl Vibrio cholera PCR NOT DETECTED Stl Norovirus GI/GII PCR NOT DETECTED Adenovirus (PCR) NOT DETECTED C. difficile Tox (PCR) NOT DETECTED E. histolytica Antibody NOT DETECTED E. coli (PCR) NOT DETECTED Salmonella (PCR) NOT DETECTED MRSA Surveill Initial Blood Type Antibody Screen Antibody Identification Antigen Identification Crossmatch (AHG) 03/23/18 03/23/18 03/23/18 05:20 16:00 16:49 WBC 35.7 H* D RBC 4.62 Hgb 13.0 L Hct 40.7 L MCV 88.1 MCH 28.0 MCHC 31.8 RDW 17.4 H Plt Count 741 H Neutrophils % Total Counted Seg Neuts % (Manual) 68 Band Neutrophils % 25 H Lymphocytes % Seg Neutrophils % Lymphocytes % (Manual) 3 L Monocytes % Eosinophils % Monocytes % (Manual) Basophils % Metamyelocytes % Myelocytes % 1 H Nucleated RBC % Neutrophils # (Manual) 13389 H Absolute Neutrophils Monocytes (Manual) 3 Nucleated RBCs Differential Comment Toxic Granulation POSITIVE H Hypochromasia Anisocytosis 2+ H Poikilocytosis Yulissa Cells Specimen Type RT RADIAL pCO2 38.4 pO2 170 H HCO3 17.4 L Total CO2 19 L Base Excess -10.0 L ABG pH 7.26 L* ABG pCO2 ABG pO2 ABG HCO3 ABG Total CO2 ABG O2 Saturation ABG Base Excess O2 Sat Above Inf Vena Cav 99.0 FiO2 0.50 Sodium Potassium Chloride Carbon Dioxide BUN Creatinine Estimated GFR Estimated GFR (MDRD) BUN/Creatinine Ratio Glucose Lactic Acid Lactate Calcium Iron TIBC % Saturation Transferrin Ferritin Total Bilirubin AST ALT Alkaline Phosphatase Total Protein Albumin Globulin Albumin/Globulin Ratio Amylase Lipase Vitamin B12 Folate Urine WBC Ur Culture Indicated? Stool Aeromonas Cult Stl C. cayetanensis PCR Stool Rotavirus A PCR Stool Astrovirus (PCR) Stool Campylobacter PCR Stool Cryptosporidium PCR Stl Enterotoxigenic E PCR Stool EPEC (PCR) Stool EAEC (PCR) Stool Giardia Lamblia PCR Stool Sapovirus (PCR) Stl Shiga-like Tx 1 PCR Stl P. shigelloides PCR Stl Shigella/EIEC PCR St Y.enterocolitica PCR Stl Vibrio cholera PCR Stl Norovirus GI/GII PCR Adenovirus (PCR) C. difficile Tox (PCR) E. histolytica Antibody E. coli (PCR) Salmonella (PCR) MRSA Surveill Initial Positive for MRSA H Blood Type Antibody Screen Antibody Identification Antigen Identification Crossmatch (AHG) 03/23/18 03/23/18 03/23/18 16:50 16:50 Unknown WBC 38.2 H* RBC 3.55 L Hgb 11.0 L 10.1 L Hct 34.9 L 31.3 L MCV 88.0 MCH 28.5 MCHC 32.3 RDW 17.5 H Plt Count 619 H Neutrophils % 96.9 H Total Counted Seg Neuts % (Manual) Band Neutrophils % Lymphocytes % 2.4 L Seg Neutrophils % Lymphocytes % (Manual) Monocytes % 0.5 L Eosinophils % 0.0 L Monocytes % (Manual) Basophils % 0.2 Metamyelocytes % Myelocytes % Nucleated RBC % Neutrophils # (Manual) Absolute Neutrophils 78828 H Monocytes (Manual) Nucleated RBCs Differential Comment Toxic Granulation Hypochromasia Anisocytosis Poikilocytosis Hettinger Cells Specimen Type pCO2 pO2 HCO3 Total CO2 Base Excess ABG pH ABG pCO2 ABG pO2 ABG HCO3 ABG Total CO2 ABG O2 Saturation ABG Base Excess O2 Sat Above Inf Vena Cav FiO2 Sodium 132 L Potassium 3.9 Chloride 108.0 H Carbon Dioxide 16.0 L BUN 14.0 Creatinine 0.40 L Estimated GFR Estimated GFR (MDRD) >60.0 BUN/Creatinine Ratio 35.0 H Glucose 133 H Lactic Acid Lactate Calcium 5.9 L* D Iron TIBC % Saturation Transferrin Ferritin Total Bilirubin AST ALT Alkaline Phosphatase Total Protein Albumin Globulin Albumin/Globulin Ratio Amylase Lipase Vitamin B12 Folate Urine WBC Ur Culture Indicated? Stool Aeromonas Cult Stl C. cayetanensis PCR Stool Rotavirus A PCR Stool Astrovirus (PCR) Stool Campylobacter PCR Stool Cryptosporidium PCR Stl Enterotoxigenic E PCR Stool EPEC (PCR) Stool EAEC (PCR) Stool Giardia Lamblia PCR Stool Sapovirus (PCR) Stl Shiga-like Tx 1 PCR Stl P. shigelloides PCR Stl Shigella/EIEC PCR St Y.enterocolitica PCR Stl Vibrio cholera PCR Stl Norovirus GI/GII PCR Adenovirus (PCR) C. difficile Tox (PCR) E. histolytica Antibody E. coli (PCR) Salmonella (PCR) MRSA Surveill Initial Blood Type Antibody Screen Antibody Identification Antigen Identification Crossmatch (AHG) 03/23/18 03/24/18 03/24/18 Unknown 01:40 05:00 WBC 40.7 H* 33.4 H* RBC 3.83 L 3.25 L Hgb 10.8 L 9.4 L Hct 34.1 L 28.2 L MCV 89.2 86.9 MCH 28.2 28.9 MCHC 31.6 33.3 RDW 17.9 H 17.0 H Plt Count 588 H 295 Neutrophils % 97.8 H Total Counted 100 Seg Neuts % (Manual) Band Neutrophils % 19.0 H Lymphocytes % 1.6 L Seg Neutrophils % 78.0 H Lymphocytes % (Manual) 1.0 L Monocytes % 0.3 L Eosinophils % 0.1 L Monocytes % (Manual) 1.0 L Basophils % 0.2 Metamyelocytes % 1.0 H Myelocytes % Nucleated RBC % Neutrophils # (Manual) 70235 H Absolute Neutrophils 11725 H Monocytes (Manual) Nucleated RBCs 1 H Differential Comment Not Reportable Toxic Granulation Hypochromasia Anisocytosis 2+ H Poikilocytosis 1+ H Hettinger Cells 1+ H Specimen Type pCO2 pO2 HCO3 Total CO2 Base Excess ABG pH 7.36 ABG pCO2 28.9 L ABG pO2 76 L ABG HCO3 17 L ABG Total CO2 17 L ABG O2 Saturation 95 ABG Base Excess -9.0 L O2 Sat Above Inf Vena Cav FiO2 0.30 Sodium Potassium Chloride Carbon Dioxide BUN Creatinine Estimated GFR Estimated GFR (MDRD) BUN/Creatinine Ratio Glucose Lactic Acid Lactate Calcium Iron TIBC % Saturation Transferrin Ferritin Total Bilirubin AST ALT Alkaline Phosphatase Total Protein Albumin Globulin Albumin/Globulin Ratio Amylase Lipase Vitamin B12 Folate Urine WBC Ur Culture Indicated? Stool Aeromonas Cult Stl C. cayetanensis PCR Stool Rotavirus A PCR Stool Astrovirus (PCR) Stool Campylobacter PCR Stool Cryptosporidium PCR Stl Enterotoxigenic E PCR Stool EPEC (PCR) Stool EAEC (PCR) Stool Giardia Lamblia PCR Stool Sapovirus (PCR) Stl Shiga-like Tx 1 PCR Stl P. shigelloides PCR Stl Shigella/EIEC PCR St Y.enterocolitica PCR Stl Vibrio cholera PCR Stl Norovirus GI/GII PCR Adenovirus (PCR) C. difficile Tox (PCR) E. histolytica Antibody E. coli (PCR) Salmonella (PCR) MRSA Surveill Initial Blood Type Antibody Screen Antibody Identification Antigen Identification Crossmatch (AHG) 03/24/18 03/24/18 05:00 05:00 WBC RBC Hgb Hct MCV MCH MCHC RDW Plt Count Neutrophils % Total Counted Seg Neuts % (Manual) Band Neutrophils % Lymphocytes % Seg Neutrophils % Lymphocytes % (Manual) Monocytes % Eosinophils % Monocytes % (Manual) Basophils % Metamyelocytes % Myelocytes % Nucleated RBC % Neutrophils # (Manual) Absolute Neutrophils Monocytes (Manual) Nucleated RBCs Differential Comment Toxic Granulation Hypochromasia Anisocytosis Poikilocytosis Hettinger Cells Specimen Type pCO2 pO2 HCO3 Total CO2 Base Excess ABG pH ABG pCO2 ABG pO2 ABG HCO3 ABG Total CO2 ABG O2 Saturation ABG Base Excess O2 Sat Above Inf Vena Cav FiO2 Sodium 131 L Potassium 3.8 Chloride 109.0 H Carbon Dioxide 17.0 L BUN 16.0 Creatinine 0.50 L Estimated GFR > 60.0 Estimated GFR (MDRD) BUN/Creatinine Ratio 32.0 H Glucose 131 H Lactic Acid Lactate 1.1 Calcium 5.9 L* Iron TIBC % Saturation Transferrin Ferritin Total Bilirubin AST ALT Alkaline Phosphatase Total Protein Albumin Globulin Albumin/Globulin Ratio Amylase Lipase Vitamin B12 Folate Urine WBC Ur Culture Indicated? Stool Aeromonas Cult Stl C. cayetanensis PCR Stool Rotavirus A PCR Stool Astrovirus (PCR) Stool Campylobacter PCR Stool Cryptosporidium PCR Stl Enterotoxigenic E PCR Stool EPEC (PCR) Stool EAEC (PCR) Stool Giardia Lamblia PCR Stool Sapovirus (PCR) Stl Shiga-like Tx 1 PCR Stl P. shigelloides PCR Stl Shigella/EIEC PCR St Y.enterocolitica PCR Stl Vibrio cholera PCR Stl Norovirus GI/GII PCR Adenovirus (PCR) C. difficile Tox (PCR) E. histolytica Antibody E. coli (PCR) Salmonella (PCR) MRSA Surveill Initial Blood Type Antibody Screen Antibody Identification Antigen Identification Crossmatch (AHG) Assessment & Plan (1) Perforated bowel: Problem details: Patient had perforated bowel due to toxic megacolon complication of his ulcerative colitis. He is status post exploratory laparotomy with subtotal colectomy and ileostomy on March 23, 2018. Surgery managing fluids and antibiotics and nutrition. He is stable on the vent with FiO2 of 30%. Current visit: Yes Status: Acute (2) Septic shock: Problem details: Patient with severe hypotension, low urine output overnight, secondary to perforated bowel. Continue antibiotic management per surgical service. Continue aggressive volume resuscitation to keep map 65. He is not on pressors. Current visit: Yes Status: Acute
[2018-03-24] MEDS: ENOXAPARIN 40 MG/0.4 ML SYRINGE SUBCUT (17:39)
[2018-03-24] MEDS: GENTAMICIN PEAK 1 REQUEST MISC (19:43)
--- NOTE | 2018-03-24 21:22 | PC.NURSE ---
2119 - Pt repositioned. Opens eyes to care. Making gestures with hands, difficult to comprehend. Pt attempts to write, however it is illegible. Assist with reposition. Smearing of stool rectally. Propofol infusing 12 mcg/kg/min. Morphine continuous at 2mg/hr. Reorient to place and situation. No restraints at this time. Monitor. Bed alarm on.
[2018-03-24 22:42] LABS: Gentamicin Peak 5.1 ug/mL (5.0-8.0)
[2018-03-25] VITALS (40 sets, daily range): BP systolic 76–114; BP diastolic 43–74; PULSE 87–109; RESP 12–19; TEMP 36.6–37.2; O2SAT 95–100
[2018-03-25] MEDS: LACTATED RINGERS 1,000 ML 250 ML IV ×2 (00:11→04:49)
[2018-03-25] MEDS: CLINDAMYCIN 900 MG/50 ML PIGGYBACK 50 MG IV ×3 (01:24→16:26)
[2018-03-25] MEDS: PROPOFOL 1,000 MG/100 ML VIAL 4 MG IV (01:41)
[2018-03-25] MEDS: DEXTROSE 5% WATER 500 ML 10 ML IV (04:44)
[2018-03-25] MEDS: DEXTROSE 5% WATER 500 ML 21 ML IV (04:45)
--- NOTE | 2018-03-25 05:00 | DI.RAD.S_ITS ---
PROCEDURE: XR CHEST 1V INDICATIONS: intubated with sepsis and hypoxia TECHNIQUE: One view of the chest was acquired. COMPARISON: [facility], MARISA, CHEST 1 VIEW, 03/23/2018, 16:27. [facility], MARISA, XR CHEST 1V, 03/24/2018, 6:05. FINDINGS: Surgical changes and devices: The endotracheal tube is 6 cm from the ana. The nasogastric tube tip is in the stomach. There is a left subclavian central line with the tip in the area of the SVC. Lungs and pleura: Increased bilateral airspace infiltrates consistent with pneumonia. There is left basilar consolidation. Small left effusion. No pneumothorax. Mediastinum: Mediastinal contours appear normal. Heart size is normal. Bones and chest wall: No suspicious bony lesions. Overlying soft tissues appear unremarkable. IMPRESSION: 1. The endotracheal tube tip is 6 cm from ana. 2. Worsening of pneumonia. Dictated by: Sandee Herrera M.D. on 03/25/2018 at 8:23 Approved by: Sandee Herrera M.D. on 03/25/2018 at 8:25
[2018-03-25 05:58] LABS: Hemoglobin 7.7 g/dL (13.5-17.5); Mean Corpuscular HGB Conc 33.5 % (30-36); Mean Corpuscular Hemoglobin 28.8 PG (26-34); Mean Corpuscular Volume 85.7 fL (80-100); Platelet Count 268 X10^3/uL (150-400); Red Blood Cell Count 2.68 X10^6/uL (4.5-5.9); Red Cell Distribution Width 17.1 % (11.6-14.8); White Blood Cell Count 32.6 X10^3/uL (4.5-11.0)
[2018-03-25] MEDS: MORPHINE PCA 30 MG/30 ML PCA.VIAL IV ×3 (06:02→22:02)
[2018-03-25] MEDS: GENTAMICIN 120 MG in SODIUM CHLORIDE 0.9% 100 ML 103 ML IV ×2 (06:03→19:06)
[2018-03-25 06:10] LABS: Add Manual Diff / Slide Review YES
[2018-03-25] MEDS: LORazepam 2 MG/ML SYRINGE 1 MG IV ×4 (06:20→22:10)
[2018-03-25 06:35] LABS: HCO3 ABG 21 mmol/L (23-27); PCO2 ABG 30.4 mmHg (35-45); PO2 ABG 81 mmHg (80-105); TCO2 ABG 22 mmol/L (23-27); pH ABG 7.45 (7.35-7.45)
[2018-03-25 06:36] LABS: Fractionated Inspired Oxygen 30; Oxygen Saturation ABG 97 % (95-100)
--- NOTE | 2018-03-25 06:51 | PC.NURSE ---
NOC shift: POD 2 perfed bowel repair; Pt remains vented, sedated w/propofol titration, MS [employer] gtt. Pt at times is awake, alert nods head yes, no appropriately, other times impulsive wants ETT out. Hemodynamically more stable tonight w/SBP low 90's and MAP above 65. Fluids remain as ordered no boluses required through shift. VSS. Stable through shift no events.
[2018-03-25 06:53] LABS: Alanine Aminotransferase 30 IU/L (21-72); Albumin 1.2 g/dL (3.5-5.0); Alkaline Phosphatase 71 U/L (38-126); Aspartate Aminotransferase 15 IU/L (17-59); Bilirubin Total 0.4 mg/dL (0.2-1.3); Estimated Glomerular Filt Rate > 60.0 mL/min (>60); Glucose 88 mg/dL (70-100); Potassium 3.4 mmol/L (3.4-5.1); Sodium 130 mmol/L (137-145)
[2018-03-25 06:58] LABS: Albumin Globulin Ratio 0.6 (1.0-2.8); Globulin 1.9 g/dL (1.7-4.1); Total Protein 3.1 g/dL (6.3-8.2)
[2018-03-25 06:59] LABS: Calcium 6.5 mg/dL (8.4-10.2); HEMOLYSIS < 15 (0-50)
[2018-03-25 07:24] LABS: Neutrophils Absolute Manual 31948 /uL (3000-5900); Total Cells Counted 100
[2018-03-25 07:27] LABS: Anisocytosis 2+
[2018-03-25 07:28] LABS: Poikilocytosis 1+
[2018-03-25 07:29] LABS: Burr Cells 1+
--- NOTE | 2018-03-25 08:47 | PM.PNPO.1 ---
Subjective Interval history: Patient remains on vent postop colectomy for perforated bowel. Exam Vital Signs (past 8 hours): Vital Signs - 8 hr 03/25/18 01:00 03/25/18 02:00 03/25/18 03:00 Temperature Pulse Rate 93 H 90 88 Respiratory Rate 16 16 16 Blood Pressure 76/64 L 76/54 L 87/46 L Pulse Oximetry 03/25/18 04:00 03/25/18 05:13 03/25/18 05:15 Temperature 97.9 F Pulse Rate 90 88 Respiratory Rate 16 16 Blood Pressure 94/51 L 94/50 L Pulse Oximetry 100 100 100 03/25/18 06:00 03/25/18 07:34 03/25/18 08:09 Temperature 98.5 F 98.5 F Pulse Rate 93 H 93 H 93 H Respiratory Rate 16 16 16 Blood Pressure 102/58 L 97/54 L 97/54 L Pulse Oximetry 100 100 03/25/18 08:28 Temperature 98.1 F Pulse Rate 90 Respiratory Rate 16 Blood Pressure 103/59 L Pulse Oximetry Temperature 98.1 F Temperature 98.5 F Temperature 98.5 F Temperature 97.9 F Pulse Rate 90 Pulse Rate 93 Pulse Rate 93 Pulse Rate 93 Pulse Rate 88 Pulse Rate 90 Pulse Rate 88 Pulse Rate 90 Pulse Rate 93 Respiratory Rate 16 Respiratory Rate 16 Respiratory Rate 16 Respiratory Rate 16 Respiratory Rate 16 Respiratory Rate 16 Respiratory Rate 16 Respiratory Rate 16 Respiratory Rate 16 Blood Pressure 103/59 Blood Pressure 97/54 Blood Pressure 97/54 Blood Pressure 102/58 Blood Pressure 94/50 Blood Pressure 94/51 Blood Pressure 87/46 Blood Pressure 76/54 Blood Pressure 76/64 Pulse Oximetry 100 Pulse Oximetry 100 Pulse Oximetry 100 Pulse Oximetry 100 Pulse Oximetry 100 Oxygen Delivery Method Mechanical Ventilation Oxygen Delivery Method Mechanical Ventilation Oxygen Delivery Method Mechanical Ventilation Oxygen Delivery Method Mechanical Ventilation Oxygen Flow Rate 30 Narrative Exam Narrative: Patient remains sedated on ventilator. He is intermittently arousable however. Diprivan remains at 10 mics per kg per minute. He has received 1 dose of Ativan 2 mg IV push over night. He does not open his eyes to voice or mildly noxious stimulus today Nasogastric tube has minimal output but it is quite bilious in nature Isacc-Lopez drains are collecting serous fluid only. Right drain is collecting more volume at several 100 cc over the last 24 hr. Urine output remains between 30 and 40 cc/hour. Urine is clear in the Momin bag. Chest is clear to auscultation bilaterally without crackles or wheezes at the moment. His breath sounds are diminished throughout bilaterally however. Abdomen is minimally edematous and nondistended. He is appropriately tender under sedation. Wound VAC remains in place with minimal drainage. No erythema. Mild scrotal edema is present Extremities are warm and perfused today. He is not mottled. He does have +1 edema of the hands and feet bilaterally. Objective Labs CBC & Chem 7: 03/25/18 05:40 03/25/18 06:30 Labs: Laboratory Results - last 24 hr 03/22/18 03/24/18 03/24/18 07:15 17:30 20:00 WBC RBC Hgb Hct MCV MCH MCHC RDW Plt Count Neut % (Auto) Lymph % (Auto) [place] % (Auto) Eos % (Auto) Baso % (Auto) Total Counted Seg Neutrophils % Band Neutrophils % Lymphocytes % (Manual) Monocytes % (Manual) Neutrophils # (Manual) Differential Comment Poikilocytosis Anisocytosis Yulissa Cells ABG pH ABG pCO2 ABG pO2 ABG HCO3 ABG Total CO2 ABG O2 Saturation ABG Base Excess FiO2 Sodium Potassium Chloride Carbon Dioxide BUN Creatinine Estimated GFR BUN/Creatinine Ratio Glucose Calcium Total Bilirubin AST ALT Alkaline Phosphatase Total Protein Albumin Globulin Albumin/Globulin Ratio Gentamicin Peak 5.1 Gentamicin Trough 1.0 Blood Type O Positive Antibody Screen Positive Antibody Identification Anti-K Antigen Identification K Antigen - NEGATIVE Crossmatch (AHG) See Detail 03/25/18 03/25/18 03/25/18 05:40 06:25 06:30 WBC 32.6 H* RBC 2.68 L Hgb 7.7 L Hct 23.0 L MCV 85.7 MCH 28.8 MCHC 33.5 RDW 17.1 H Plt Count 268 Neut % (Auto) Not Reportable Lymph % (Auto) Not Reportable [place] % (Auto) Not Reportable Eos % (Auto) Not Reportable Baso % (Auto) Not Reportable Total Counted 100 Seg Neutrophils % 90.0 H Band Neutrophils % 8.0 H Lymphocytes % (Manual) 1.0 L Monocytes % (Manual) 1.0 L Neutrophils # (Manual) 72999 H Differential Comment Automatic Corn Grinder Operator Poikilocytosis 1+ H Anisocytosis 2+ H Fields Cells 1+ H ABG pH 7.45 ABG pCO2 30.4 L ABG pO2 81 ABG HCO3 21 L ABG Total CO2 22 L ABG O2 Saturation 97 ABG Base Excess -3.0 L FiO2 30 Sodium 130 L Potassium 3.4 Chloride 104.0 Carbon Dioxide 21.0 L BUN 11.0 Creatinine 0.50 L Estimated GFR > 60.0 BUN/Creatinine Ratio 22.0 Glucose 88 Calcium 6.5 L Total Bilirubin 0.4 AST 15 L ALT 30 Alkaline Phosphatase 71 Total Protein 3.1 L* Albumin 1.2 L Globulin 1.9 Albumin/Globulin Ratio 0.6 L Gentamicin Peak Gentamicin Trough Blood Type Antibody Screen Antibody Identification Antigen Identification Crossmatch (AHG) A/P Post-op (1) Perforated bowel: Problem details: 43-year-old male now postoperative day 2 from subtotal colectomy with 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 He remains anemic consistent with his underlying condition. He remained septic as well but stable. Mean arterial blood pressure is now in the 60s to low 70s. Systolic pressure currently is 102. We will transfuse 2 units of packed red blood cells today. Target hemoglobin approximately 10 given his overall sepsis, hypovolemia which is now correcting, and hypoxia. Continue triple antibiotics as ordered. Decrease IV fluids. His chest x-ray shows some bilateral infiltrates but he has no evidence currently of ARDS however. Potentially wean to extubate once the fluid shift stable. Potentially give him pressure support trials today. Awaiting wound insurance healthcare representative for wound VAC management. This may need to be changed soon. Arterial line is not functioning well at the moment. I do not think we need this further and can discontinue it at any time. Discontinue CVP measurements once TPN has begun. Orders written. All above discussed with nursing staff. Current Visit: Yes Status: Acute (2) Septic shock: Problem details: Patient with severe hypotension, low urine output overnight, secondary to perforated bowel. Continue antibiotic management per surgical service. Continue aggressive volume resuscitation to keep map 65. He is not on pressors. Current Visit: Yes Status: Acute Time Spent With Patient Total time spent is greater than 50% in coordination of care (as documented) at patient's floor/unit and/or counseling patient: less than 15 minutes
--- NOTE | 2018-03-25 08:54 | CM.DPNOTE ---
DCP: continued: Case again received and EMR is reviewed. Noted now that pt remains on ventilator support s/p surgery. The gravity of his medical needs and prognosis is noted. P: contact pt's mother, with whom he is currently living,to discuss POC and needs. She is home caring for pt's gravely disabled brother Cyril (carries dx Cerebral Palsy). (see initial d/c planning assessment) Pt would seem to be a candidate for an LTAC setting given the complexity of his needs but currently with no insurance and will likely quality for a medicaid plan. This would limit his ability to access LTAC level of care. Will be following...
[2018-03-25] MEDS: SODIUM CHLORIDE 0.9% FLUSH 10 ML IV ×2 (09:04→12:28)
[2018-03-25] MEDS: PANTOPRAZOLE 40 MG VIAL IV (09:04)
[2018-03-25] MEDS: LACTATED RINGERS 1,000 ML 125 ML IV (09:06)
--- NOTE | 2018-03-25 09:38 | P.PN_ITS ---
Subjective Interval history: Patient remains on vent postop colectomy for perforated bowel. He is able to follow commands. He went 1 hr on CPAP trial. Exam Vital Signs (past 8 hours): Vital Signs - 8 hr 03/25/18 02:00 03/25/18 03:00 03/25/18 04:00 Temperature 97.9 F Pulse Rate 90 88 90 Respiratory Rate 16 16 16 Blood Pressure 76/54 L 87/46 L 94/51 L Pulse Oximetry 100 03/25/18 05:13 03/25/18 05:15 03/25/18 06:00 Temperature Pulse Rate 88 93 H Respiratory Rate 16 16 Blood Pressure 94/50 L 102/58 L Pulse Oximetry 100 100 100 03/25/18 07:34 03/25/18 08:09 03/25/18 08:28 Temperature 98.5 F 98.5 F 98.1 F Pulse Rate 93 H 93 H 90 Respiratory Rate 16 16 16 Blood Pressure 97/54 L 97/54 L 103/59 L Pulse Oximetry 100 Temperature 98.1 F Temperature 98.5 F Temperature 98.5 F Temperature 97.9 F Pulse Rate 90 Pulse Rate 93 Pulse Rate 93 Pulse Rate 93 Pulse Rate 88 Pulse Rate 90 Pulse Rate 88 Pulse Rate 90 Respiratory Rate 16 Respiratory Rate 16 Respiratory Rate 16 Respiratory Rate 16 Respiratory Rate 16 Respiratory Rate 16 Respiratory Rate 16 Respiratory Rate 16 Blood Pressure 103/59 Blood Pressure 97/54 Blood Pressure 97/54 Blood Pressure 102/58 Blood Pressure 94/50 Blood Pressure 94/51 Blood Pressure 87/46 Blood Pressure 76/54 Pulse Oximetry 100 Pulse Oximetry 100 Pulse Oximetry 100 Pulse Oximetry 100 Pulse Oximetry 100 Oxygen Delivery Method Mechanical Ventilation Oxygen Delivery Method Mechanical Ventilation Oxygen Delivery Method Mechanical Ventilation Oxygen Delivery Method Mechanical Ventilation Oxygen Flow Rate 30 Narrative Exam Narrative: GENERAL: Patient on vent HEENT: Pupils equal CHEST: Clear to auscultation bilaterally. CARDIAC: Regular rate and rhythm. ABDOMEN: Surgical dressing clean and dry EXTREMITIES: Mild distal edema of extremities NEUROLOGICAL: Oriented, following simple commands SKIN: Warm, dry, no petechiae, no rash Objective Labs CBC & Chem 7: 03/25/18 05:40 03/25/18 06:30 Labs: Laboratory Results - last 24 hr 03/22/18 03/24/18 03/24/18 07:15 17:30 20:00 WBC RBC Hgb Hct MCV MCH MCHC RDW Plt Count Neut % (Auto) Lymph % (Auto) [place] % (Auto) Eos % (Auto) Baso % (Auto) Total Counted Seg Neutrophils % Band Neutrophils % Lymphocytes % (Manual) Monocytes % (Manual) Neutrophils # (Manual) Differential Comment Poikilocytosis Anisocytosis Yulissa Cells ABG pH ABG pCO2 ABG pO2 ABG HCO3 ABG Total CO2 ABG O2 Saturation ABG Base Excess FiO2 Sodium Potassium Chloride Carbon Dioxide BUN Creatinine Estimated GFR BUN/Creatinine Ratio Glucose Calcium Total Bilirubin AST ALT Alkaline Phosphatase Total Protein Albumin Globulin Albumin/Globulin Ratio Gentamicin Peak 5.1 Gentamicin Trough 1.0 Blood Type O Positive Antibody Screen Positive Antibody Identification Anti-K Antigen Identification K Antigen - NEGATIVE Crossmatch (AHG) See Detail 03/25/18 03/25/18 03/25/18 05:40 06:25 06:30 WBC 32.6 H* RBC 2.68 L Hgb 7.7 L Hct 23.0 L MCV 85.7 MCH 28.8 MCHC 33.5 RDW 17.1 H Plt Count 268 Neut % (Auto) Not Reportable Lymph % (Auto) Not Reportable [place] % (Auto) Not Reportable Eos % (Auto) Not Reportable Baso % (Auto) Not Reportable Total Counted 100 Seg Neutrophils % 90.0 H Band Neutrophils % 8.0 H Lymphocytes % (Manual) 1.0 L Monocytes % (Manual) 1.0 L Neutrophils # (Manual) 44154 H Differential Comment Field Attendant Poikilocytosis 1+ H Anisocytosis 2+ H Yulissa Cells 1+ H ABG pH 7.45 ABG pCO2 30.4 L ABG pO2 81 ABG HCO3 21 L ABG Total CO2 22 L ABG O2 Saturation 97 ABG Base Excess -3.0 L FiO2 30 Sodium 130 L Potassium 3.4 Chloride 104.0 Carbon Dioxide 21.0 L BUN 11.0 Creatinine 0.50 L Estimated GFR > 60.0 BUN/Creatinine Ratio 22.0 Glucose 88 Calcium 6.5 L Total Bilirubin 0.4 AST 15 L ALT 30 Alkaline Phosphatase 71 Total Protein 3.1 L* Albumin 1.2 L Globulin 1.9 Albumin/Globulin Ratio 0.6 L Gentamicin Peak Gentamicin Trough Blood Type Antibody Screen Antibody Identification Antigen Identification Crossmatch (AHG) Imaging Chest x-ray: Radiologist's impression: PROCEDURE: XR CHEST 1V INDICATIONS: intubated with sepsis and hypoxia TECHNIQUE: One view of the chest was acquired. COMPARISON: [facility], CR, CHEST 1 VIEW, 03/23/2018, 16:27. [facility], CR, XR CHEST 1V, 03/24/2018, 6:05. FINDINGS: Surgical changes and devices: The endotracheal tube is 6 cm from the ana. The nasogastric tube tip is in the stomach. There is a left subclavian central line with the tip in the area of the SVC. Lungs and pleura: Increased bilateral airspace infiltrates consistent with pneumonia. There is left basilar consolidation. Small left effusion. No pneumothorax. Mediastinum: Mediastinal contours appear normal. Heart size is normal. Bones and chest wall: No suspicious bony lesions. Overlying soft tissues appear unremarkable. IMPRESSION: 1. The endotracheal tube tip is 6 cm from ana. 2. Worsening of pneumonia. 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 He has improving hemodynamics and urine output. Doing very well on ventilator with 1 hr on CPAP trial and FiO2 30%. He has pulmonary infiltrates likely edema due to volume resuscitation but not appreciably impacting ventilatory parameters. Continue daily Argenis patient's sedation and CPAP trial with hopes of extubating in the next 24 hr. Current visit: Yes Status: Acute Orders: My Active Orders 03/24/18 12:32 Mineral Oil/Petrol Ophth Oint [Refresh Lacri-Lube Ointment] 1 applic EYE-BOTH BID PRN 03/24/18 13:07 Admit as Routine (2) Septic shock: Problem details: Patient with severe hypotension, low urine output overnight, secondary to perforated bowel. Continue antibiotic management per surgical service. Continue aggressive volume resuscitation to keep map 65. He is not on pressors. Current visit: Yes Status: Acute Orders: My Active Orders 03/24/18 12:32 Mineral Oil/Petrol Ophth Oint [Refresh Lacri-Lube Ointment] 1 applic EYE-BOTH BID PRN 03/24/18 13:07 Admit as Routine
[2018-03-25] MEDS: levoFLOXacin 750 MG/150 ML PIGGYBACK 100 MG IV (10:59)
--- NOTE | 2018-03-25 12:19 | PC.NURSE ---
Addendum entered by Rabia Haynes R.N. 03/25/18 14:20: A line discontinued at 1330 without issue. Pt was requesting removal due to discomfort and waveform dampened. Pressure dressing applied. Original Note: Day Shift Note Pt vented and sedated to RASS of -2. Propofol at 10 mcg/kg/min with morphine continuous at 2 mg/hr. Sedation vacation at 0925 with CPAP trail done [id number], pt tolerated well. Opens eyes to voice and answers questions by shaking or nodding head. See physical assesment for head to toe findings.
[2018-03-25] MEDS: FLUCONAZOLE 400 MG/200 ML PIGGYBACK 100 MG IV (13:51)
[2018-03-25] MEDS: PROPOFOL 1,000 MG/100 ML VIAL 3.33 MG IV (14:02)
--- NOTE | 2018-03-25 14:18 | PM.CN ---
HPI Date Patient Seen: 03/25/18 Time Patient Seen: 10:00 Chief complaint: Acute Hyponatremia, Acute Anemia, Acute Hypocalcem Reason for consult: wound vac Requesting provider: Mitul Levin Narrative: I've been asked to review the patient regarding wound vac management noting he's post op day 2 following a partial colectomy and bowel resection due to perforation associated with ulcerative colitis. He's been requiring IV fluids and pressors post-operatively due to sepsis however appears to be stablizing today while remaining heavily sedated on mechanical ventilation. There's minimal drainage in the wound vac as per nursing and no other complications in terms of the abdominal surgical wound. Meds Home Medications Medication Instructions Recorded Confirmed Type adalimumab See Label Instructions .ROUTE 03/24/18 03/24/18 History .COMPLEX aripiprazole 5 mg PO DAILY 03/24/18 03/24/18 History ferrous sulfate 325 mg PO DAILY 03/24/18 03/24/18 History mercaptopurine 50 mg PO DAILY 03/24/18 03/24/18 History pantoprazole 40 mg PO DAILY 03/24/18 03/24/18 History sertraline 50 mg PO DAILY 03/24/18 03/24/18 History zolpidem 5 mg PO BEDTIME PRN 03/24/18 03/24/18 History Generic Name Dose Route Start Last Admin Trade Name Freq PRN Reason Stop Dose Admin Artificial Tears 1 applic 03/24/18 12:32 03/24/18 13:12 Refresh Lacri-Lube Ointment EYE-BOTH 1 applic BID PRN Administration Dry Eye(s) Dextrose 25 gm 03/24/18 00:01 D50w IV PRN PRN Hypoglycemia Enoxaparin Sodium 40 mg 03/24/18 17:00 03/24/18 17:39 Lovenox SUBCUT 40 mg 1700 DORENE Administration Fluconazole 400 mg in 200 mls @ 100 mls/hr 03/25/18 14:00 03/25/18 13:51 Diflucan IV 100 mls/hr Q24H DORENE Administration Clindamycin Phosphate 900 mg in 50 mls @ 50 mls/hr 03/24/18 01:00 03/25/18 10:24 Cleocin IV Infused Q8H DORENE Infusion Levofloxacin 750 mg in 150 mls @ 100 mls/hr 03/24/18 11:00 03/25/18 12:34 Levaquin IV Infused Q24H [facility] Infusion Propofol 1,000 mg in 100 mls @ 1.665 mls/hr 03/24/18 06:00 03/25/18 14:02 Propofol IV 10 mcg/kg/min TITRATE DORENE 3.33 mls/hr Administration Protocol 5 MCG/KG/MIN Gentamicin Sulfate 120 mg/ 103 mls @ 103 mls/hr 03/24/18 06:00 03/25/18 07:25 Sodium Chloride IV Infused 0600,1800 [facility] Infusion Morphine Sulfate 30 mg in 30 mls @ 2 mls/hr 03/24/18 00:01 03/25/18 14:00 Morphine [employer]ifle Crewmember IV 2 mls/hr CONT DORENE Administration 2 MG/HR Lactated Ringer's 1,000 mls @ 125 mls/hr 03/24/18 03:30 03/25/18 09:06 Lactated Ringers IV 125 mls/hr CONT DORENE Administration Dextrose 500 mls @ 21 mls/hr 03/24/18 14:00 03/25/18 04:44 Dextrose 5% Water IV 10 mls/hr CONT DORENE Administration Dextrose 500 mls @ 21 mls/hr 03/24/18 14:00 03/25/18 04:45 Dextrose 5% Water IV 21 mls/hr CONT DORENE Administration Potassium Chloride 30 meq/ 1,042.2827 mls @ 43 mls/hr 03/25/18 18:00 Calcium Gluconate 5.2 meq/ IV 03/26/18 17:59 Magnesium Sulfate 1 gm/ 1800 [facility] Multivitamins 10 ml/ Chromium/ Copper/Manganese/Seleni/Zn 1 ml/ Insulin Human Regular 10 unit/ Famotidine 30 mg/ Amino Acids/Electrolytes/Dextrose Fat Emulsion Intravenous 50 gm in 250 mls @ 25 mls/hr 03/25/18 18:00 Intralipid IV 03/26/18 03:59 1800 [facility] Insulin Aspart 0 unit 03/24/18 00:00 03/25/18 12:04 Novolog Flexpen SUBCUT Not Given Q6H [facility] Protocol Lorazepam 1 mg 03/24/18 16:59 03/25/18 13:47 Ativan IV 1 mg Q1H PRN Administration Anxiety Naloxone HCl 0.2 mg 03/24/18 00:01 Narcan IV Q2MIN PRN Opiate Reversal Ondansetron HCl 4 mg 03/24/18 00:01 Zofran IV Q4HR PRN Nausea And Vomiting Pantoprazole Sodium 40 mg 03/24/18 09:00 03/25/18 09:04 Protonix IV 40 mg DAILY DORENE Administration Sodium Chloride 10 ml 03/25/18 21:00 Normal Saline 0.9% Flush IV BID DORENE Sodium Chloride 10 ml 03/25/18 12:19 03/25/18 12:28 Normal Saline 0.9% Flush IV 10 ml PRN PRN Administration Flush Allergies Allergy/AdvReac Type Severity Reaction Status Date / Time Penicillins [PENICILLINS] Allergy Unknown Verified 03/24/18 16:04 Review of Systems Review of Systems mechanically ventilated Constitutional Comments: on vent; heavily sedated Exam Vital Signs (past 8 hours): Vital Signs - 8 hr 03/25/18 07:34 03/25/18 08:09 03/25/18 08:28 Temperature 98.5 F 98.5 F 98.1 F Pulse Rate 93 H 93 H 90 Respiratory Rate 16 16 16 Blood Pressure 97/54 L 97/54 L 103/59 L Pulse Oximetry 100 03/25/18 09:27 03/25/18 09:53 03/25/18 10:23 Temperature 98.4 F Pulse Rate 94 H Respiratory Rate 16 Blood Pressure 108/63 Pulse Oximetry 100 100 100 03/25/18 10:36 03/25/18 10:46 03/25/18 11:02 Temperature 98.1 F 98.1 F 98.8 F Pulse Rate 97 H 96 H 93 H Respiratory Rate 12 12 16 Blood Pressure 114/67 112/68 109/66 Pulse Oximetry 03/25/18 11:53 03/25/18 12:05 03/25/18 12:59 Temperature 98.4 F 98.8 F Pulse Rate 97 H 95 H Respiratory Rate 16 16 Blood Pressure 111/74 111/68 Pulse Oximetry 100 100 03/25/18 13:41 Temperature 99 F Pulse Rate 95 H Respiratory Rate 16 Blood Pressure 92/54 L Pulse Oximetry 100 Temperature 99 F Temperature 98.8 F Temperature 98.4 F Temperature 98.8 F Temperature 98.1 F Temperature 98.1 F Temperature 98.4 F Temperature 98.1 F Temperature 98.5 F Temperature 98.5 F Pulse Rate 95 Pulse Rate 95 Pulse Rate 97 Pulse Rate 93 Pulse Rate 96 Pulse Rate 97 Pulse Rate 94 Pulse Rate 90 Pulse Rate 93 Pulse Rate 93 Respiratory Rate 16 Respiratory Rate 16 Respiratory Rate 16 Respiratory Rate 16 Respiratory Rate 12 Respiratory Rate 12 Respiratory Rate 16 Respiratory Rate 16 Respiratory Rate 16 Respiratory Rate 16 Blood Pressure 92/54 Blood Pressure 111/68 Blood Pressure 111/74 Blood Pressure 109/66 Blood Pressure 112/68 Blood Pressure 114/67 Blood Pressure 108/63 Blood Pressure 103/59 Blood Pressure 97/54 Blood Pressure 97/54 Pulse Oximetry 100 Pulse Oximetry 100 Pulse Oximetry 100 Pulse Oximetry 100 Pulse Oximetry 100 Pulse Oximetry 100 Pulse Oximetry 100 Oxygen Delivery Method Mechanical Ventilation Oxygen Delivery Method Mechanical Ventilation Oxygen Delivery Method Mechanical Ventilation Oxygen Delivery Method Mechanical Ventilation Oxygen Flow Rate 30 Oxygen Flow Rate 30 GI Other: abdomen non-distended; wound vac in place with black foam and minimal drainage in tubing; no periwound erythema Objective Labs CBC & Chem 7: 03/25/18 05:40 03/25/18 06:30 Labs: Laboratory Results - last 24 hr 03/22/18 03/24/18 03/24/18 07:15 17:30 20:00 WBC RBC Hgb Hct MCV MCH MCHC RDW Plt Count Neut % (Auto) Lymph % (Auto) [place] % (Auto) Eos % (Auto) Baso % (Auto) Total Counted Seg Neutrophils % Band Neutrophils % Lymphocytes % (Manual) Monocytes % (Manual) Neutrophils # (Manual) Differential Comment Poikilocytosis Anisocytosis Yulissa Cells ABG pH ABG pCO2 ABG pO2 ABG HCO3 ABG Total CO2 ABG O2 Saturation ABG Base Excess FiO2 Sodium Potassium Chloride Carbon Dioxide BUN Creatinine Estimated GFR BUN/Creatinine Ratio Glucose Calcium Total Bilirubin AST ALT Alkaline Phosphatase Total Protein Albumin Globulin Albumin/Globulin Ratio Gentamicin Peak 5.1 Gentamicin Trough 1.0 Blood Type O Positive Antibody Screen Positive Antibody Identification Anti-K Antigen Identification K Antigen - NEGATIVE Crossmatch (AHG) See Detail 03/25/18 03/25/18 03/25/18 05:40 06:25 06:30 WBC 32.6 H* RBC 2.68 L Hgb 7.7 L Hct 23.0 L MCV 85.7 MCH 28.8 MCHC 33.5 RDW 17.1 H Plt Count 268 Neut % (Auto) Not Reportable Lymph % (Auto) Not Reportable [place] % (Auto) Not Reportable Eos % (Auto) Not Reportable Baso % (Auto) Not Reportable Total Counted 100 Seg Neutrophils % 90.0 H Band Neutrophils % 8.0 H Lymphocytes % (Manual) 1.0 L Monocytes % (Manual) 1.0 L Neutrophils # (Manual) 64842 H Differential Comment Environmental Health And Safety Manager Poikilocytosis 1+ H Anisocytosis 2+ H [place] Cells 1+ H ABG pH 7.45 ABG pCO2 30.4 L ABG pO2 81 ABG HCO3 21 L ABG Total CO2 22 L ABG O2 Saturation 97 ABG Base Excess -3.0 L FiO2 30 Sodium 130 L Potassium 3.4 Chloride 104.0 Carbon Dioxide 21.0 L BUN 11.0 Creatinine 0.50 L Estimated GFR > 60.0 BUN/Creatinine Ratio 22.0 Glucose 88 Calcium 6.5 L Total Bilirubin 0.4 AST 15 L ALT 30 Alkaline Phosphatase 71 Total Protein 3.1 L* Albumin 1.2 L Globulin 1.9 Albumin/Globulin Ratio 0.6 L Gentamicin Peak Gentamicin Trough Blood Type Antibody Screen Antibody Identification Antigen Identification Crossmatch (AHG) Assessment & Plan (1) Perforated bowel: Problem details: 43-year-old male now postoperative day 2 from subtotal colectomy with 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 He remains anemic consistent with his underlying condition. He remained septic as well but stable. Mean arterial blood pressure is now in the 60s to low 70s. Systolic pressure currently is 102. We will transfuse 2 units of packed red blood cells today. Target hemoglobin approximately 10 given his overall sepsis, hypovolemia which is now correcting, and hypoxia. Continue triple antibiotics as ordered. Decrease IV fluids. His chest x-ray shows some bilateral infiltrates but he has no evidence currently of ARDS however. Potentially wean to extubate once the fluid shift stable. Potentially give him pressure support trials today. Awaiting wound reproductive healthcare assistant for wound VAC management. This may need to be changed soon. Arterial line is not functioning well at the moment. I do not think we need this further and can discontinue it at any time. Discontinue CVP measurements once TPN has begun. Orders written. All above discussed with nursing staff. Current visit: Yes Status: Acute Plan: I'll review the patient again tomorrow with our nurse manager banking and can consider replacing the wound vac at that time. Should the patient remain in the hospital over the weekend nursing staff or the on-call surgeon will need to change the vac on Friday presuming there's no further complications. (2) Septic shock: Problem details: Patient with severe hypotension, low urine output overnight, secondary to perforated bowel. Continue antibiotic management per surgical service. Continue aggressive volume resuscitation to keep map 65. He is not on pressors. Current visit: Yes Status: Acute
--- NOTE | 2018-03-25 14:54 | P.CONS_ITS ---
HPI Date Patient Seen: 03/25/18 Time Patient Seen: 10:00 Chief complaint: Acute Hyponatremia, Acute Anemia, Acute Hypocalcem Reason for consult: wound vac Requesting provider: Mitul Levin Narrative: I've been asked to review the patient regarding wound vac management noting he's post op day 2 following a partial colectomy and bowel resection due to perforation associated with ulcerative colitis. He's been requiring IV fluids and pressors post-operatively due to sepsis however appears to be stablizing today while remaining heavily sedated on mechanical ventilation. There's minimal drainage in the wound vac as per nursing and no other complications in terms of the abdominal surgical wound. Meds Home Medications Medication Instructions Recorded Confirmed Type adalimumab See Label Instructions .ROUTE 03/24/18 03/24/18 History .COMPLEX aripiprazole 5 mg PO DAILY 03/24/18 03/24/18 History ferrous sulfate 325 mg PO DAILY 03/24/18 03/24/18 History mercaptopurine 50 mg PO DAILY 03/24/18 03/24/18 History pantoprazole 40 mg PO DAILY 03/24/18 03/24/18 History sertraline 50 mg PO DAILY 03/24/18 03/24/18 History zolpidem 5 mg PO BEDTIME PRN 03/24/18 03/24/18 History Generic Name Dose Route Start Last Admin Trade Name Freq PRN Reason Stop Dose Admin Artificial Tears 1 applic 03/24/18 12:32 03/24/18 13:12 Refresh Lacri-Lube Ointment EYE-BOTH 1 applic BID PRN Administration Dry Eye(s) Dextrose 25 gm 03/24/18 00:01 D50w IV PRN PRN Hypoglycemia Enoxaparin Sodium 40 mg 03/24/18 17:00 03/24/18 17:39 Lovenox SUBCUT 40 mg 1700 DORENE Administration Fluconazole 400 mg in 200 mls @ 100 mls/hr 03/25/18 14:00 03/25/18 13:51 Diflucan IV 100 mls/hr Q24H DORENE Administration Clindamycin Phosphate 900 mg in 50 mls @ 50 mls/hr 03/24/18 01:00 03/25/18 10 :24 Cleocin IV Infused Q8H [facility] Infusion Levofloxacin 750 mg in 150 mls @ 100 mls/hr 03/24/18 11:00 03/25/18 12:34 Levaquin IV Infused Q24H [facility] Infusion Propofol 1,000 mg in 100 mls @ 1.665 mls/hr 03/24/18 06:00 03/25/18 14:02 Propofol IV 10 mcg/kg/min TITRATE DORENE 3.33 mls/hr Administration Protocol 5 MCG/KG/MIN Gentamicin Sulfate 120 mg/ 103 mls @ 103 mls/hr 03/24/18 06:00 03/25/18 07:25 Sodium Chloride IV Infused 0600,1800 [facility] Infusion Morphine Sulfate 30 mg in 30 mls @ 2 mls/hr 03/24/18 00:01 03/25/18 14:00 Morphine Tank Inspector IV 2 mls/hr CONT DORENE Administration 2 MG/HR Lactated Ringer's 1,000 mls @ 125 mls/hr 03/24/18 03:30 03/25/18 09:06 Lactated Ringers IV 125 mls/hr CONT DORENE Administration Dextrose 500 mls @ 21 mls/hr 03/24/18 14:00 03/25/18 04:44 Dextrose 5% Water IV 10 mls/hr CONT DORENE Administration Dextrose 500 mls @ 21 mls/hr 03/24/18 14:00 03/25/18 04:45 Dextrose 5% Water IV 21 mls/hr CONT DORENE Administration Potassium Chloride 30 meq/ 1,042.2827 mls @ 43 mls/hr 03/25/18 18:00 Calcium Gluconate 5.2 meq/ IV 03/26/18 17:59 Magnesium Sulfate 1 gm/ 1800 [facility] Multivitamins 10 ml/ Chromium/ Copper/Manganese/Seleni/Zn 1 ml/ Insulin Human Regular 10 unit/ Famotidine 30 mg/ Amino Acids/Electrolytes/Dextrose Fat Emulsion Intravenous 50 gm in 250 mls @ 25 mls/hr 03/25/18 18:00 Intralipid IV 03/26/18 03:59 1800 [facility] Insulin Aspart 0 unit 03/24/18 00:00 03/25/18 12:04 Novolog Flexpen SUBCUT Not Given Q6H [facility] Protocol Lorazepam 1 mg 03/24/18 16:59 03/25/18 13:47 Ativan IV 1 mg Q1H PRN Administration Anxiety Naloxone HCl 0.2 mg 03/24/18 00:01 Narcan IV Q2MIN PRN Opiate Reversal Ondansetron HCl 4 mg 03/24/18 00:01 Zofran IV Q4HR PRN Nausea And Vomiting Pantoprazole Sodium 40 mg 03/24/18 09:00 03/25/18 09:04 Protonix IV 40 mg DAILY DORENE Administration Sodium Chloride 10 ml 03/25/18 21:00 Normal Saline 0.9% Flush IV BID DORENE Sodium Chloride 10 ml 03/25/18 12:19 03/25/18 12:28 Normal Saline 0.9% Flush IV 10 ml PRN PRN Administration Flush Allergies Allergy/AdvReac Type Severity Reaction Status Date / Time Penicillins [PENICILLINS] Allergy Unknown Verified 03/24/18 16:04 Review of Systems Review of Systems mechanically ventilated Constitutional Comments: on vent; heavily sedated Exam Vital Signs (past 8 hours): Vital Signs - 8 hr 03/25/18 07:34 03/25/18 08:09 03/25/18 08:28 Temperature 98.5 F 98.5 F 98.1 F Pulse Rate 93 H 93 H 90 Respiratory Rate 16 16 16 Blood Pressure 97/54 L 97/54 L 103/59 L Pulse Oximetry 100 03/25/18 09:27 03/25/18 09:53 03/25/18 10:23 Temperature 98.4 F Pulse Rate 94 H Respiratory Rate 16 Blood Pressure 108/63 Pulse Oximetry 100 100 100 03/25/18 10:36 03/25/18 10:46 03/25/18 11:02 Temperature 98.1 F 98.1 F 98.8 F Pulse Rate 97 H 96 H 93 H Respiratory Rate 12 12 16 Blood Pressure 114/67 112/68 109/66 Pulse Oximetry 03/25/18 11:53 03/25/18 12:05 03/25/18 12:59 Temperature 98.4 F 98.8 F Pulse Rate 97 H 95 H Respiratory Rate 16 16 Blood Pressure 111/74 111/68 Pulse Oximetry 100 100 03/25/18 13:41 Temperature 99 F Pulse Rate 95 H Respiratory Rate 16 Blood Pressure 92/54 L Pulse Oximetry 100 Temperature 99 F Temperature 98.8 F Temperature 98.4 F Temperature 98.8 F Temperature 98.1 F Temperature 98.1 F Temperature 98.4 F Temperature 98.1 F Temperature 98.5 F Temperature 98.5 F Pulse Rate 95 Pulse Rate 95 Pulse Rate 97 Pulse Rate 93 Pulse Rate 96 Pulse Rate 97 Pulse Rate 94 Pulse Rate 90 Pulse Rate 93 Pulse Rate 93 Respiratory Rate 16 Respiratory Rate 16 Respiratory Rate 16 Respiratory Rate 16 Respiratory Rate 12 Respiratory Rate 12 Respiratory Rate 16 Respiratory Rate 16 Respiratory Rate 16 Respiratory Rate 16 Blood Pressure 92/54 Blood Pressure 111/68 Blood Pressure 111/74 Blood Pressure 109/66 Blood Pressure 112/68 Blood Pressure 114/67 Blood Pressure 108/63 Blood Pressure 103/59 Blood Pressure 97/54 Blood Pressure 97/54 Pulse Oximetry 100 Pulse Oximetry 100 Pulse Oximetry 100 Pulse Oximetry 100 Pulse Oximetry 100 Pulse Oximetry 100 Pulse Oximetry 100 Oxygen Delivery Method Mechanical Ventilation Oxygen Delivery Method Mechanical Ventilation Oxygen Delivery Method Mechanical Ventilation Oxygen Delivery Method Mechanical Ventilation Oxygen Flow Rate 30 Oxygen Flow Rate 30 GI Other: abdomen non-distended; wound vac in place with black foam and minimal drainage in tubing; no periwound erythema Objective Labs CBC & Chem 7: 03/25/18 05:40 03/25/18 06:30 Labs: Laboratory Results - last 24 hr 03/22/18 03/24/18 03/24/18 07:15 17:30 20:00 WBC RBC Hgb Hct MCV MCH MCHC RDW Plt Count Neut % (Auto) Lymph % (Auto) [place] % (Auto) Eos % (Auto) Baso % (Auto) Total Counted Seg Neutrophils % Band Neutrophils % Lymphocytes % (Manual) Monocytes % (Manual) Neutrophils # (Manual) Differential Comment Poikilocytosis Anisocytosis [place] Cells ABG pH ABG pCO2 ABG pO2 ABG HCO3 ABG Total CO2 ABG O2 Saturation ABG Base Excess FiO2 Sodium Potassium Chloride Carbon Dioxide BUN Creatinine Estimated GFR BUN/Creatinine Ratio Glucose Calcium Total Bilirubin AST ALT Alkaline Phosphatase Total Protein Albumin Globulin Albumin/Globulin Ratio Gentamicin Peak 5.1 Gentamicin Trough 1.0 Blood Type O Positive Antibody Screen Positive Antibody Identification Anti-K Antigen Identification K Antigen - NEGATIVE Crossmatch ([facility]G) See Detail 03/25/18 03/25/18 03/25/18 05:40 06:25 06:30 WBC 32.6 H* RBC 2.68 L Hgb 7.7 L Hct 23.0 L MCV 85.7 MCH 28.8 MCHC 33.5 RDW 17.1 H Plt Count 268 Neut % (Auto) Not Reportable Lymph % (Auto) Not Reportable [place] % (Auto) Not Reportable Eos % (Auto) Not Reportable Baso % (Auto) Not Reportable Total Counted 100 Seg Neutrophils % 90.0 H Band Neutrophils % 8.0 H Lymphocytes % (Manual) 1.0 L Monocytes % (Manual) 1.0 L Neutrophils # (Manual) 17472 H Differential Comment Basketball Scout Poikilocytosis 1+ H Anisocytosis 2+ H Yulissa Cells 1+ H ABG pH 7.45 ABG pCO2 30.4 L ABG pO2 81 ABG HCO3 21 L ABG Total CO2 22 L ABG O2 Saturation 97 ABG Base Excess -3.0 L FiO2 30 Sodium 130 L Potassium 3.4 Chloride 104.0 Carbon Dioxide 21.0 L BUN 11.0 Creatinine 0.50 L Estimated GFR > 60.0 BUN/Creatinine Ratio 22.0 Glucose 88 Calcium 6.5 L Total Bilirubin 0.4 AST 15 L ALT 30 Alkaline Phosphatase 71 Total Protein 3.1 L* Albumin 1.2 L Globulin 1.9 Albumin/Globulin Ratio 0.6 L Gentamicin Peak Gentamicin Trough Blood Type Antibody Screen Antibody Identification Antigen Identification Crossmatch ([facility]) Assessment & Plan (1) Perforated bowel: Problem details: 43-year-old male now postoperative day 2 from subtotal colectomy with ileostomy for 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 He remains anemic consistent with his underlying condition. He remained septic as well but stable. Mean arterial blood pressure is now in the 60s to low 70s. Systolic pressure currently is 102. We will transfuse 2 units of packed red blood cells today. Target hemoglobin approximately 10 given his overall sepsis, hypovolemia which is now correcting, and hypoxia. Continue triple antibiotics as ordered. Decrease IV fluids. His chest x-ray shows some bilateral infiltrates but he has no evidence currently of ARDS however. Potentially wean to extubate once the fluid shift stable. Potentially give him pressure support trials today. Awaiting wound healthcare social worker for wound VAC management. This may need to be changed soon. Arterial line is not functioning well at the moment. I do not think we need this further and can discontinue it at any time. Discontinue CVP measurements once TPN has begun. Orders written. All above discussed with nursing staff. Current visit: Yes Status: Acute Plan: I'll review the patient again tomorrow with our nurse invasive manager and can consider replacing the wound vac at that time. Should the patient remain in the hospital over the weekend nursing staff or the on-call surgeon will need to change the vac on Friday presuming there's no further complications. (2) Septic shock: Problem details: Patient with severe hypotension, low urine output overnight, secondary to perforated bowel. Continue antibiotic management per surgical service. Continue aggressive volume resuscitation to keep map 65. He is not on pressors. Current visit: Yes Status: Acute
--- NOTE | 2018-03-25 15:21 | CM.DPNOTE ---
DCP: continued: spoke by phone just now with pt's mother Chiquita. She states that at this time she plans to bring her son home when he is ready for d/c and will care for him there. She says she does not have POA for him at this time as he has been too ill but she is aware of need for insurance and plans to start that application online this evening. Pt is having vent weaning trials and he should be able to participate in this and his d/c plan choices as he recovers. Dr. Duff and would clinic team are involved and pt currently with wound vac. Chiquita notes I don't know what the doctor's are planning but my son is not going to a assisted (and currently is care needs would be too high for that setting). Chiquita says she will be here with her son Cyril tomorrow late afternoon. Agreed that may be best at this time to call her at home when she has a small break from son's care to further discuss d/c issues and options. P: in process. Intent for d/c to home is noted. Unsure at this point how that process will unfold. Hope to talk with providers for further clarity on POC going forward.
--- NOTE | 2018-03-25 16:19 | PC.NURSE ---
1615 - Dr. Levin notified that Bekah may not be able to assist with wound vac drsg change. Supplies for Medium wound vac obtained from [employer]. Bekah notified, per Dr. Levin's request, that he will change drsg on Friday and Friday. Niyahix to contact Estefany and confirm ileostomy consult is pending.
[2018-03-25] MEDS: ENOXAPARIN 40 MG/0.4 ML SYRINGE SUBCUT (16:26)
--- NOTE | 2018-03-25 17:29 | PC.NURSE ---
Ostomy Nurse Consult Note Ileostomy beefy red, moist, edematous. Budded 1/2 above skin. Sutures intact. Measures 1 inch oval. Looks like it is a passat stoma. Serosanguenous drainage aprox 25cc. Fabiola-stomal skin intact with out redness or swelling. There was no leaking from the ostomy. I changed the appliance: Convatec two piece 45mm moldable wafer and transparent non-filtered pouch. Collin's mom Chiquita was at the bedside and watched me change the appliance and was very attentive. She will be helping Collin with his appliance changes and I will have Chiquita present for most of the teaching sessions. Collin did open his eyes and nod when I spoke with him. His KCI negative pressure wound vac is in place midline abd. There is very scant drainage,serosanguenous, in the wound vac canister. Suction at 125HHmg continuous. He CEDRICK drain just below the stoma is sutured in place draining serosanguenous drainage. He has a huff cath that is draining clear yellow urine. He continues to be on a vent. I will return tomorrow to drop off some teaching materials for him and his mother, Chiquita and will do another appliance change on Friday.
[2018-03-25] MEDS: DEXTROSE 50 % IN WATER 25 GM/50 ML SYRINGE IV (17:50)
[2018-03-25] MEDS: FAT EMULSIONS 50 GM/250 ML EMULSION IV (17:51)
[2018-03-25] MEDS: CALCIUM IV (17:52)
[2018-03-25] MEDS: LYTES IV (17:52)
[2018-03-25] MEDS: POTASSIUM CHLORIDE IV (17:52)
[2018-03-25] MEDS: [UNRECOGNIZED DRUG - OTHER] IV (17:52)
[2018-03-25] MEDS: DEXT IV (17:52)
[2018-03-26] VITALS (33 sets, daily range): BP systolic 88–108; BP diastolic 48–70; PULSE 103–116; RESP 16–30; TEMP 36.2–37.9; O2SAT 94–100
[2018-03-26] MEDS: LACTATED RINGERS 1,000 ML 125 ML IV ×2 (00:28→08:58)
[2018-03-26] MEDS: LORazepam 2 MG/ML SYRINGE 1 MG IV ×2 (00:36→03:26)
[2018-03-26] MEDS: CLINDAMYCIN 900 MG/50 ML PIGGYBACK 50 MG IV ×3 (01:58→17:42)
[2018-03-26] MEDS: MORPHINE PCA 30 MG/30 ML PCA.VIAL IV ×3 (02:00→22:51)
--- NOTE | 2018-03-26 02:25 | PC.NURSE ---
Addendum entered by Juana Mehta R.N. 03/26/18 06:47: Original Note: Addendum entered by Juana Mehta R.N. 03/26/18 06:43: 0600 Dr. Cedillo notified of resp. changes through shift increased distress, rhonci RT changes to vent with increase to PEEP 10, FIO2 to 60%. Pt also had temp spike to 101.3 which responded to cooling measures taken now 97.6. Also responding well to increased sedation. No xray ordered this AM. Order received for xray and IV Lasix, given. Original Note: NOC Shift: 0030 Pt POD 3 perfed bowel repair, remains on ventilator. Pt awake, restless. Nods 'yes to anxiety, denies pain. On propofol gtt at 10mcg/kg/min, [employer] cont. having notable increase in right lung coarse rhonci throughout ramos, SXN for white secretions, pt RR up to low 20's, HR increased to 100's. Ativan given and pt repostioned to left side. Once on right side sats dropped to 87% requiring more SXN and increase in FIO2 to 60%. RT notified to assess. Pt bagged and SXN to encourage release of secretions, some improvement in sats however pt vent settings changed per RT to FIO2 60% P10. At this time propofol gtt increased to sedate pt more to tolerate vent and drop resp. rate. Will cont. with pain control issues and comfort. SBP remains stable.
[2018-03-26] MEDS: PROPOFOL 1,000 MG/100 ML VIAL 3.996 MG IV (04:30)
[2018-03-26 05:34] LABS: Hematocrit 31.3 % (41-53); Hemoglobin 10.5 g/dL (13.5-17.5); Mean Corpuscular HGB Conc 33.6 % (30-36); Mean Corpuscular Hemoglobin 29.1 PG (26-34); Mean Corpuscular Volume 86.7 fL (80-100); Platelet Count 221 X10^3/uL (150-400); Red Blood Cell Count 3.61 X10^6/uL (4.5-5.9); Red Cell Distribution Width 16.1 % (11.6-14.8); White Blood Cell Count 23.9 X10^3/uL (4.5-11.0)
[2018-03-26 05:35] LABS: Add Manual Diff / Slide Review YES
[2018-03-26 05:40] LABS: HCO3 ABG 22 mmol/L (23-27); PCO2 ABG 33.2 mmHg (35-45); PO2 ABG 79 mmHg (80-105); TCO2 ABG 23 mmol/L (23-27); pH ABG 7.44 (7.35-7.45)
[2018-03-26 05:41] LABS: Oxygen Saturation ABG 96 % (95-100)
--- NOTE | 2018-03-26 05:56 | DI.RAD.S_ITS ---
PROCEDURE: XR CHEST 1V INDICATIONS: Vented, respiratory changes. TECHNIQUE: One view of the chest was acquired. COMPARISON: [facility], CR, XR CHEST 1V, 03/25/2018, 5:32. FINDINGS: Surgical changes and devices: The endotracheal tube is 6 cm above ana. There is a nasogastric tube in the stomach. A left subclavian central line tip is in the care of SVC. Lungs and pleura: There is persistent left basilar consolidation. Bilateral parahilar infiltrates are decreased. Small pleural effusions. No pneumothorax. Mediastinum: Mediastinal contours appear normal. Heart size is normal. Bones and chest wall: No suspicious bony lesions. Overlying soft tissues appear unremarkable. IMPRESSION: Persistent left basilar consolidation consistent with pneumonia. Dictated by: Sandee Herrera M.D. on 03/26/2018 at 8:11 Approved by: Sandee Herrera M.D. on 03/26/2018 at 8:14
[2018-03-26 06:13] LABS: Calcium 6.6 mg/dL (8.4-10.2); Estimated Glomerular Filt Rate > 60.0 mL/min (>60); Glucose 122 mg/dL (70-100); HEMOLYSIS < 15 (0-50); Potassium 3.3 mmol/L (3.4-5.1); Sodium 132 mmol/L (137-145)
[2018-03-26] MEDS: FUROSEMIDE 20 MG/2 ML VIAL IV (06:26)
[2018-03-26] MEDS: GENTAMICIN 120 MG in SODIUM CHLORIDE 0.9% 100 ML 103 ML IV ×2 (06:26→18:58)
[2018-03-26] MEDS: INSULIN ASPART 100 UNIT/ML INSULN PEN SUBCUT ×2 (06:28→12:13)
[2018-03-26 06:54] LABS: Hypersegmented Neutrophils Y; Neutrophils Absolute Manual 22944 /uL (3000-5900); Nucleated Red Blood Cells 3 #/Diff; Total Cells Counted 100
[2018-03-26 06:55] LABS: Hypochromasia 2+; Target Cells 2+
[2018-03-26 06:56] LABS: Anisocytosis 2+; Poikilocytosis 2+
[2018-03-26 06:57] LABS: Microcytosis 1+
[2018-03-26] MEDS: PANTOPRAZOLE 40 MG VIAL IV (08:56)
[2018-03-26] MEDS: SODIUM CHLORIDE 0.9% FLUSH 10 ML IV (08:56)
[2018-03-26] MEDS: SODIUM CHLORIDE 0.9% 250 ML 21 ML IV (09:07)
--- NOTE | 2018-03-26 09:12 | PM.PN.1 ---
Subjective Interval history: Patient remains on vent postop colectomy for perforated bowel. He had increased oxygen requirement last night. He received 20 mg of IV furosemide. He had good urine output after the IV Lasix. He did have improvement of oxygenation after the IV diuresis. He is currently sedated on the ventilator and not able to provide any history. Exam Vital Signs (past 8 hours): Vital Signs - 8 hr 03/26/18 02:00 03/26/18 03:55 03/26/18 04:06 Temperature 97.1 F L Pulse Rate 110 H 107 H Respiratory Rate 21 18 Blood Pressure 108/70 101/64 Pulse Oximetry 95 100 100 03/26/18 06:00 03/26/18 06:25 03/26/18 07:28 Temperature 99.8 F H Pulse Rate 103 H 108 H Respiratory Rate 21 16 Blood Pressure 97/70 103/61 Pulse Oximetry 100 100 100 03/26/18 08:00 Temperature Pulse Rate Respiratory Rate Blood Pressure Pulse Oximetry 100 Temperature 99.8 F Temperature 97.1 F Pulse Rate 108 Pulse Rate 103 Pulse Rate 107 Pulse Rate 110 Respiratory Rate 16 Respiratory Rate 21 Respiratory Rate 18 Respiratory Rate 21 Blood Pressure 103/61 Blood Pressure 97/70 Blood Pressure 101/64 Blood Pressure 108/70 Pulse Oximetry 100 Pulse Oximetry 100 Pulse Oximetry 100 Pulse Oximetry 100 Pulse Oximetry 100 Pulse Oximetry 100 Pulse Oximetry 95 Oxygen Delivery Method Mechanical Ventilation Oxygen Delivery Method Mechanical Ventilation Oxygen Delivery Method Mechanical Ventilation Oxygen Delivery Method Mechanical Ventilation Oxygen Delivery Method Mechanical Ventilation Oxygen Flow Rate 40 Oxygen Flow Rate 40 Oxygen Flow Rate 40 Narrative Exam Narrative: Middle-aged man who was sedated on the ventilator Neck Other: No JVD Resp Other: Slightly coarse breath sounds at bilateral bases, otherwise clear to auscultation Cardio Other: Regular rhythm, no murmur appreciated GI Other: Abdomen was nondistended Extrem Other: Two to 3+ edema on bilateral forearms, hands, and ankles Objective Labs Result Diagrams: 03/26/18 05:10 03/26/18 05:10 Labs: Laboratory Results - last 24 hr 03/22/18 03/25/18 03/25/18 07:15 05:40 06:30 WBC 32.6 H* RBC 2.68 L Hgb 7.7 L Hct 23.0 L MCV 85.7 MCH 28.8 MCHC 33.5 RDW 17.1 H Plt Count 268 Neut % (Auto) Lymph % (Auto) [place] % (Auto) Eos % (Auto) Baso % (Auto) Total Counted 100 Seg Neutrophils % 90.0 H Band Neutrophils % 8.0 H Lymphocytes % (Manual) 1.0 L Monocytes % (Manual) 1.0 L Neutrophils # (Manual) 21469 H Nucleated RBCs Differential Comment Change Management Director Hypersegmented Neuts Hypochromasia Poikilocytosis 1+ H Anisocytosis 2+ H Microcytosis Target Cells [place] Cells 1+ H ABG pH ABG pCO2 ABG pO2 ABG HCO3 ABG Total CO2 ABG O2 Saturation ABG Base Excess FiO2 Sodium 130 L Potassium 3.4 Chloride 104.0 Carbon Dioxide 21.0 L BUN 11.0 Creatinine 0.50 L Estimated GFR > 60.0 BUN/Creatinine Ratio 22.0 Glucose 88 Calcium 6.5 L Total Bilirubin 0.4 AST 15 L ALT 30 Alkaline Phosphatase 71 Total Protein 3.1 L* Albumin 1.2 L Globulin 1.9 Albumin/Globulin Ratio 0.6 L Blood Type O Positive Antibody Screen Positive Antibody Identification Anti-K Antigen Identification K Antigen - NEGATIVE Crossmatch (AHG) See Detail 03/25/18 03/26/18 03/26/18 13:00 05:10 05:10 WBC 23.9 H RBC 3.61 L Hgb 10.5 L Hct 31.3 L MCV 86.7 MCH 29.1 MCHC 33.6 RDW 16.1 H Plt Count 221 Neut % (Auto) Not Reportable Lymph % (Auto) Not Reportable [place] % (Auto) Not Reportable Eos % (Auto) Not Reportable Baso % (Auto) Not Reportable Total Counted 100 Seg Neutrophils % 96.0 H Band Neutrophils % Lymphocytes % (Manual) 3.0 L Monocytes % (Manual) 1.0 L Neutrophils # (Manual) 22098 H Nucleated RBCs 3 H Differential Comment Not Reportable Hypersegmented Neuts Y Hypochromasia 2+ H Poikilocytosis 2+ H Anisocytosis 2+ H Microcytosis 1+ H Target Cells 2+ H Yulissa Cells ABG pH ABG pCO2 ABG pO2 ABG HCO3 ABG Total CO2 ABG O2 Saturation ABG Base Excess FiO2 Sodium 132 L Potassium 3.3 L Chloride 102.0 Carbon Dioxide 24.0 BUN 8.0 L Creatinine 0.40 L Estimated GFR > 60.0 BUN/Creatinine Ratio 20.0 Glucose 122 H Calcium 6.6 L Total Bilirubin AST ALT Alkaline Phosphatase Total Protein Albumin Globulin Albumin/Globulin Ratio Blood Type O Positive Antibody Screen Positive Antibody Identification Anti-K Antigen Identification Crossmatch ([facility]) See Detail 03/26/18 05:15 WBC RBC Hgb Hct MCV MCH MCHC RDW Plt Count Neut % (Auto) Lymph % (Auto) [place] % (Auto) Eos % (Auto) Baso % (Auto) Total Counted Seg Neutrophils % Band Neutrophils % Lymphocytes % (Manual) Monocytes % (Manual) Neutrophils # (Manual) Nucleated RBCs Differential Comment Hypersegmented Neuts Hypochromasia Poikilocytosis Anisocytosis Microcytosis Target Cells Yulissa Cells ABG pH 7.44 ABG pCO2 33.2 L ABG pO2 79 L ABG HCO3 22 L ABG Total CO2 23 ABG O2 Saturation 96 ABG Base Excess -2.0 FiO2 0.40 Sodium Potassium Chloride Carbon Dioxide BUN Creatinine Estimated GFR BUN/Creatinine Ratio Glucose Calcium Total Bilirubin AST ALT Alkaline Phosphatase Total Protein Albumin Globulin Albumin/Globulin Ratio Blood Type Antibody Screen Antibody Identification Antigen Identification Crossmatch ([facility]) Assessment & Plan (1) Perforated bowel: Problem details: 43-year-old male now postoperative day 3 from subtotal colectomy with ileostomy for 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 He has improving hemodynamics and urine output. He had improvement of his oxygenation after IV furosemide. Continue daily sedation vacation and CPAP trial with hopes of extubating in the next 24 hr. Current visit: Yes Status: Acute Orders: My Active Orders 03/25/18 12:19 Sodium Chloride 0.9% Flush [Normal Saline 0.9% Flush] 10 ml IV PRN PRN 03/25/18 21:00 Sodium Chloride 0.9% Flush [Normal Saline 0.9% Flush] 10 ml IV BID Plan: Continue IV Levaquin, clindamycin, and fluconazole. Continue TPN for nutritional support. I have contacted pharmacy to add more potassium and calcium to his TPN bag for persistent hypokalemia and hypocalcemia. (2) Septic shock: Problem details: Secondary to perforated bowel. Resolved. Continue treating the underlying cause. DC IV fluid. Current visit: Yes Status: Acute Orders: My Active Orders 03/25/18 12:19 Sodium Chloride 0.9% Flush [Normal Saline 0.9% Flush] 10 ml IV PRN PRN 03/25/18 21:00 Sodium Chloride 0.9% Flush [Normal Saline 0.9% Flush] 10 ml IV BID (3) Acute respiratory failure following trauma and surgery: Problem details: Continue CPAP trials and sedation vacation. Possible extubate in the next 24 hr. Current visit: Yes Status: Acute (4) Pulmonary edema: Problem details: DC maintenance IV fluid. He had improvement with IV furosemide 20 mg last night. We will continue monitor his fluid status and respiration. We may need to repeat furosemide IV if his blood pressure tolerates. Current visit: Yes Status: Acute (5) Hypokalemia due to inadequate potassium intake: Problem details: We will give him another K rider today. I have also contacted pharmacy to add more potassium in the TPN bag. We will continue monitor his electrolytes. Current visit: Yes Status: Acute (6) Hypocalcemia: Problem details: We will give him another gram of IV calcium this morning Current visit: Yes Status: Acute
[2018-03-26] MEDS: CALCIUM GLUCONATE 4.65 MEQ in SODIUM CHLORIDE 0.9% 50 ML 60 ML IV (10:13)
[2018-03-26] MEDS: POTASSIUM CHLORIDE 40 MEQ in SODIUM CHLORIDE 0.9% 500 ML 86.667 ML IV (10:13)
--- NOTE | 2018-03-26 10:32 | P.PN_ITS ---
Subjective Interval history: Patient remains on vent postop colectomy for perforated bowel. He had increased oxygen requirement last night. He received 20 mg of IV furosemide. He had good urine output after the IV Lasix. He did have improvement of oxygenation after the IV diuresis. He is currently sedated on the ventilator and not able to provide any history. Slightly tachycardic now with intermittent fevers overnight. Exam Vital Signs (past 8 hours): Vital Signs - 8 hr 03/26/18 03:55 03/26/18 04:06 03/26/18 06:00 Temperature 97.1 F L Pulse Rate 107 H 103 H Respiratory Rate 18 21 Blood Pressure 101/64 97/70 Pulse Oximetry 100 100 100 03/26/18 06:25 03/26/18 07:28 03/26/18 08:00 Temperature 99.8 F H Pulse Rate 108 H Respiratory Rate 16 Blood Pressure 103/61 Pulse Oximetry 100 100 100 03/26/18 09:57 Temperature 100.2 F H Pulse Rate 107 H Respiratory Rate 17 Blood Pressure 94/52 L Pulse Oximetry Temperature 100.2 F Temperature 99.8 F Temperature 97.1 F Pulse Rate 107 Pulse Rate 108 Pulse Rate 103 Pulse Rate 107 Respiratory Rate 17 Respiratory Rate 16 Respiratory Rate 21 Respiratory Rate 18 Blood Pressure 94/52 Blood Pressure 103/61 Blood Pressure 97/70 Blood Pressure 101/64 Pulse Oximetry 100 Pulse Oximetry 100 Pulse Oximetry 100 Pulse Oximetry 100 Pulse Oximetry 100 Pulse Oximetry 100 Oxygen Delivery Method Mechanical Ventilation Oxygen Delivery Method Mechanical Ventilation Oxygen Delivery Method Mechanical Ventilation Oxygen Delivery Method Mechanical Ventilation Oxygen Delivery Method Mechanical Ventilation Oxygen Flow Rate 40 Oxygen Flow Rate 40 Oxygen Flow Rate 40 Narrative Exam Narrative: Sedated on ventilator in ICU. However, moves all extremities to voice and tactile stimuli. Chest exam demonstrates diminished breath sounds bilaterally but no crackles or wheezes currently. No murmurs, gallops, or rubs. Sinus tachycardia on the monitor at 104 beats per minute. Abdomen is soft and slightly distended. Appropriately tender to palpation. I personally changed his wound VAC device today with the assistance of the nursing staff. Wound bed is granulating slightly throughout. No pus. Fascial suture line remains intact. Skin edges are viable without erythema. Ileostomy is pink and viable. Appliance was changed yesterday per enterostomal therapist. Isacc-Lopez drains are in position with serous fluid output only. No blood or purulent drainage. Extremities show +1 edema throughout bilaterally but otherwise warm and perfused. Objective Labs Result Diagrams: 03/26/18 05:10 03/26/18 05:10 Labs: Laboratory Results - last 24 hr 03/22/18 03/25/18 03/25/18 07:15 05:40 06:30 WBC 32.6 H* RBC 2.68 L Hgb 7.7 L Hct 23.0 L MCV 85.7 MCH 28.8 MCHC 33.5 RDW 17.1 H Plt Count 268 Neut % (Auto) Lymph % (Auto) Wharton % (Auto) Eos % (Auto) Baso % (Auto) Total Counted 100 Seg Neutrophils % 90.0 H Band Neutrophils % 8.0 H Lymphocytes % (Manual) 1.0 L Monocytes % (Manual) 1.0 L Neutrophils # (Manual) 67197 H Nucleated RBCs Differential Comment Acupressurist Hypersegmented Neuts Hypochromasia Poikilocytosis 1+ H Anisocytosis 2+ H Microcytosis Target Cells Yulissa Cells 1+ H ABG pH ABG pCO2 ABG pO2 ABG HCO3 ABG Total CO2 ABG O2 Saturation ABG Base Excess FiO2 Sodium 130 L Potassium 3.4 Chloride 104.0 Carbon Dioxide 21.0 L BUN 11.0 Creatinine 0.50 L Estimated GFR > 60.0 BUN/Creatinine Ratio 22.0 Glucose 88 Calcium 6.5 L Total Bilirubin 0.4 AST 15 L ALT 30 Alkaline Phosphatase 71 Total Protein 3.1 L* Albumin 1.2 L Globulin 1.9 Albumin/Globulin Ratio 0.6 L Blood Type O Positive Antibody Screen Positive Antibody Identification Anti-K Antigen Identification K Antigen - NEGATIVE Crossmatch ([facility]) See Detail 03/25/18 03/26/18 03/26/18 13:00 05:10 05:10 WBC 23.9 H RBC 3.61 L Hgb 10.5 L Hct 31.3 L MCV 86.7 MCH 29.1 MCHC 33.6 RDW 16.1 H Plt Count 221 Neut % (Auto) Not Reportable Lymph % (Auto) Not Reportable Wharton % (Auto) Not Reportable Eos % (Auto) Not Reportable Baso % (Auto) Not Reportable Total Counted 100 Seg Neutrophils % 96.0 H Band Neutrophils % Lymphocytes % (Manual) 3.0 L Monocytes % (Manual) 1.0 L Neutrophils # (Manual) 61095 H Nucleated RBCs 3 H Differential Comment Not Reportable Hypersegmented Neuts Y Hypochromasia 2+ H Poikilocytosis 2+ H Anisocytosis 2+ H Microcytosis 1+ H Target Cells 2+ H [place] Cells ABG pH ABG pCO2 ABG pO2 ABG HCO3 ABG Total CO2 ABG O2 Saturation ABG Base Excess FiO2 Sodium 132 L Potassium 3.3 L Chloride 102.0 Carbon Dioxide 24.0 BUN 8.0 L Creatinine 0.40 L Estimated GFR > 60.0 BUN/Creatinine Ratio 20.0 Glucose 122 H Calcium 6.6 L Total Bilirubin AST ALT Alkaline Phosphatase Total Protein Albumin Globulin Albumin/Globulin Ratio Blood Type O Positive Antibody Screen Positive Antibody Identification Anti-K Antigen Identification Crossmatch ([facility]) See Detail 03/26/18 05:15 WBC RBC Hgb Hct MCV MCH MCHC RDW Plt Count Neut % (Auto) Lymph % (Auto) Wharton % (Auto) Eos % (Auto) Baso % (Auto) Total Counted Seg Neutrophils % Band Neutrophils % Lymphocytes % (Manual) Monocytes % (Manual) Neutrophils # (Manual) Nucleated RBCs Differential Comment Hypersegmented Neuts Hypochromasia Poikilocytosis Anisocytosis Microcytosis Target Cells [place] Cells ABG pH 7.44 ABG pCO2 33.2 L ABG pO2 79 L ABG HCO3 22 L ABG Total CO2 23 ABG O2 Saturation 96 ABG Base Excess -2.0 FiO2 0.40 Sodium Potassium Chloride Carbon Dioxide BUN Creatinine Estimated GFR BUN/Creatinine Ratio Glucose Calcium Total Bilirubin AST ALT Alkaline Phosphatase Total Protein Albumin Globulin Albumin/Globulin Ratio Blood Type Antibody Screen Antibody Identification Antigen Identification Crossmatch ([facility]) Assessment & Plan (1) Perforated bowel: Problem details: 43-year-old male now postoperative day 3 from subtotal colectomy with ileostomy for 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 He has improving hemodynamics and urine output. He had improvement of his oxygenation after IV furosemide. Continue daily sedation vacation and CPAP trial with hopes of extubating in the next 24 hr. Current visit: Yes Status: Acute Orders: My Active Orders 03/25/18 14:00 Fluconazole [Diflucan] 400 mg in 200 ml IV Q24H 03/25/18 17:58 LORazepam [Ativan] 1 mg IV Q1HR PRN 03/25/18 18:00 Potassium Chloride [Krider] 30 meq Calcium Gluconate 5.2 meq Magnesium Sulfate 1 gm Multivitamin [Infuvite Adult] 10 ml Trace Elements [Multitrace-5 Conc] 1 ml Insulin Regular, Human [Humulin R] 10 unit Famotidine [Pepcid] 30 mg Aa 5 % /Calcium/Lytes/Dext 25 % [Clinimix E 5%-25% Solution] 1,000 ml IV 1800 03/26/18 05:00 Basic Metabolic Panel Routine CBC [Complete Blood Count AUTO DIFF] Routine 03/26/18 09:00 Sodium Chloride 0.9% [Normal Saline 0.9%] 250 ml IV CONT 03/27/18 05:00 Basic Metabolic Panel Routine Calcium Routine Hemoglobin and Hematocrit Routine Magnesium Routine Phosphorous Routine (2) Septic shock: Problem details: Secondary to perforated bowel. Resolved. Continue treating the underlying cause. DC IV fluid. Current visit: Yes Status: Acute Orders: My Active Orders 03/25/18 14:00 Fluconazole [Diflucan] 400 mg in 200 ml IV Q24H 03/25/18 17:58 LORazepam [Ativan] 1 mg IV Q1HR PRN 03/25/18 18:00 Potassium Chloride [Krider] 30 meq Calcium Gluconate 5.2 meq Magnesium Sulfate 1 gm Multivitamin [Infuvite Adult] 10 ml Trace Elements [Multitrace-5 Conc] 1 ml Insulin Regular, Human [Humulin R] 10 unit Famotidine [Pepcid] 30 mg Aa 5 % /Calcium/Lytes/Dext 25 % [Clinimix E 5%-25% Solution] 1,000 ml IV 1800 03/26/18 05:00 Basic Metabolic Panel Routine CBC [Complete Blood Count AUTO DIFF] Routine 03/26/18 09:00 Sodium Chloride 0.9% [Normal Saline 0.9%] 250 ml IV CONT 03/27/18 05:00 Basic Metabolic Panel Routine Calcium Routine Hemoglobin and Hematocrit Routine Magnesium Routine Phosphorous Routine (3) Acute respiratory failure following trauma and surgery: Problem details: Continue CPAP trials and sedation vacation. Possible extubate in the next 24 hr. Current visit: Yes Status: Acute Orders: My Active Orders 03/25/18 14:00 Fluconazole [Diflucan] 400 mg in 200 ml IV Q24H 03/25/18 17:58 LORazepam [Ativan] 1 mg IV Q1HR PRN 03/25/18 18:00 Potassium Chloride [Krider] 30 meq Calcium Gluconate 5.2 meq Magnesium Sulfate 1 gm Multivitamin [Infuvite Adult] 10 ml Trace Elements [Multitrace-5 Conc] 1 ml Insulin Regular, Human [Humulin R] 10 unit Famotidine [Pepcid] 30 mg Aa 5 % /Calcium/Lytes/Dext 25 % [Clinimix E 5%-25% Solution] 1,000 ml IV 1800 03/26/18 05:00 Basic Metabolic Panel Routine CBC [Complete Blood Count AUTO DIFF] Routine 03/26/18 09:00 Sodium Chloride 0.9% [Normal Saline 0.9%] 250 ml IV CONT 03/27/18 05:00 Basic Metabolic Panel Routine Calcium Routine Hemoglobin and Hematocrit Routine Magnesium Routine Phosphorous Routine (4) Pulmonary edema: Problem details: DC maintenance IV fluid. He had improvement with IV furosemide 20 mg last night. We will continue monitor his fluid status and respiration. We may need to repeat furosemide IV if his blood pressure tolerates. Current visit: Yes Status: Acute Orders: My Active Orders 03/25/18 14:00 Fluconazole [Diflucan] 400 mg in 200 ml IV Q24H 03/25/18 17:58 LORazepam [Ativan] 1 mg IV Q1HR PRN 03/25/18 18:00 Potassium Chloride [Krider] 30 meq Calcium Gluconate 5.2 meq Magnesium Sulfate 1 gm Multivitamin [Infuvite Adult] 10 ml Trace Elements [Multitrace-5 Conc] 1 ml Insulin Regular, Human [Humulin R] 10 unit Famotidine [Pepcid] 30 mg Aa 5 % /Calcium/Lytes/Dext 25 % [Clinimix E 5%-25% Solution] 1,000 ml IV 1800 03/26/18 05:00 Basic Metabolic Panel Routine CBC [Complete Blood Count AUTO DIFF] Routine 03/26/18 09:00 Sodium Chloride 0.9% [Normal Saline 0.9%] 250 ml IV CONT 03/27/18 05:00 Basic Metabolic Panel Routine Calcium Routine Hemoglobin and Hematocrit Routine Magnesium Routine Phosphorous Routine (5) Hypokalemia due to inadequate potassium intake: Problem details: We will give him another K rider today. I have also contacted pharmacy to add more potassium in the TPN bag. We will continue monitor his electrolytes. Current visit: Yes Status: Acute Orders: My Active Orders 03/25/18 14:00 Fluconazole [Diflucan] 400 mg in 200 ml IV Q24H 03/25/18 17:58 LORazepam [Ativan] 1 mg IV Q1HR PRN 03/25/18 18:00 Potassium Chloride [Krider] 30 meq Calcium Gluconate 5.2 meq Magnesium Sulfate 1 gm Multivitamin [Infuvite Adult] 10 ml Trace Elements [Multitrace-5 Conc] 1 ml Insulin Regular, Human [Humulin R] 10 unit Famotidine [Pepcid] 30 mg Aa 5 % /Calcium/Lytes/Dext 25 % [Clinimix E 5%-25% Solution] 1,000 ml IV 1800 03/26/18 05:00 Basic Metabolic Panel Routine CBC [Complete Blood Count AUTO DIFF] Routine 03/26/18 09:00 Sodium Chloride 0.9% [Normal Saline 0.9%] 250 ml IV CONT 03/27/18 05:00 Basic Metabolic Panel Routine Calcium Routine Hemoglobin and Hematocrit Routine Magnesium Routine Phosphorous Routine (6) Hypocalcemia: Problem details: We will give him another gram of IV calcium this morning Current visit: Yes Status: Acute Orders: My Active Orders 03/25/18 14:00 Fluconazole [Diflucan] 400 mg in 200 ml IV Q24H 03/25/18 17:58 LORazepam [Ativan] 1 mg IV Q1HR PRN 03/25/18 18:00 Potassium Chloride [Krider] 30 meq Calcium Gluconate 5.2 meq Magnesium Sulfate 1 gm Multivitamin [Infuvite Adult] 10 ml Trace Elements [Multitrace-5 Conc] 1 ml Insulin Regular, Human [Humulin R] 10 unit Famotidine [Pepcid] 30 mg Aa 5 % /Calcium/Lytes/Dext 25 % [Clinimix E 5%-25% Solution] 1,000 ml IV 1800 03/26/18 05:00 Basic Metabolic Panel Routine CBC [Complete Blood Count AUTO DIFF] Routine 03/26/18 09:00 Sodium Chloride 0.9% [Normal Saline 0.9%] 250 ml IV CONT 03/27/18 05:00 Basic Metabolic Panel Routine Calcium Routine Hemoglobin and Hematocrit Routine Magnesium Routine Phosphorous Routine
[2018-03-26] MEDS: levoFLOXacin 750 MG/150 ML PIGGYBACK 100 MG IV (11:25)
--- NOTE | 2018-03-26 12:55 | PC.NURSE ---
Day Shift Note Abdominal wound vac dressing changed this morning by Dr. Levin. Wound vac suction at 125 mmhg continuous. Pt tolerated dressing change well. Dr. Levin will be in Friday (03/29) to change dressing again. CPAP trial done today at [phone], pt did well. No signs of respiratory distress this shift.
--- NOTE | 2018-03-26 13:31 | CM.DPNOTE ---
DCP: continued: Spoke earlier today with ACG/Laura. She confirms she has attempted to meet with pt to assist with the financial options and [employer] but due to his current medical condition in ICU has not been able to do this. Explained that his mother Chiquita is attempting to start an applications and Laura readily agrees to reach out to her to offer assist in the process.
--- NOTE | 2018-03-26 13:34 | PM.PN.1 ---
Exam Vital Signs (past 8 hours): Vital Signs - 8 hr 03/26/18 06:00 03/26/18 06:25 03/26/18 07:28 Temperature 99.8 F H Pulse Rate 103 H 108 H Respiratory Rate 21 16 Blood Pressure 97/70 103/61 Pulse Oximetry 100 100 100 03/26/18 08:00 03/26/18 09:57 03/26/18 12:06 Temperature 100.2 F H Pulse Rate 107 H Respiratory Rate 17 Blood Pressure 94/52 L Pulse Oximetry 100 98 03/26/18 12:08 Temperature 99.1 F Pulse Rate 109 H Respiratory Rate 17 Blood Pressure 88/53 L Pulse Oximetry 100 Temperature 99.1 F Temperature 100.2 F Temperature 99.8 F Pulse Rate 109 Pulse Rate 107 Pulse Rate 108 Pulse Rate 103 Respiratory Rate 17 Respiratory Rate 17 Respiratory Rate 16 Respiratory Rate 21 Blood Pressure 88/53 Blood Pressure 94/52 Blood Pressure 103/61 Blood Pressure 97/70 Pulse Oximetry 100 Pulse Oximetry 98 Pulse Oximetry 100 Pulse Oximetry 100 Pulse Oximetry 100 Pulse Oximetry 100 Oxygen Delivery Method Mechanical Ventilation Oxygen Delivery Method Mechanical Ventilation Oxygen Delivery Method Mechanical Ventilation Oxygen Delivery Method Mechanical Ventilation Oxygen Delivery Method Mechanical Ventilation Oxygen Flow Rate 30 Oxygen Flow Rate 40 Oxygen Flow Rate 40 Oxygen Flow Rate 40 Objective Labs Result Diagrams: 03/26/18 05:10 03/26/18 05:10 Labs: Laboratory Results - last 24 hr 03/22/18 03/25/18 03/25/18 07:15 05:40 06:30 WBC 32.6 H* RBC 2.68 L Hgb 7.7 L Hct 23.0 L MCV 85.7 MCH 28.8 MCHC 33.5 RDW 17.1 H Plt Count 268 Neut % (Auto) Lymph % (Auto) [place] % (Auto) Eos % (Auto) Baso % (Auto) Total Counted 100 Seg Neutrophils % 90.0 H Band Neutrophils % 8.0 H Lymphocytes % (Manual) 1.0 L Monocytes % (Manual) 1.0 L Neutrophils # (Manual) 11482 H Nucleated RBCs Differential Comment Custom Bookbinder Hypersegmented Neuts Hypochromasia Poikilocytosis 1+ H Anisocytosis 2+ H Microcytosis Target Cells [place] Cells 1+ H ABG pH ABG pCO2 ABG pO2 ABG HCO3 ABG Total CO2 ABG O2 Saturation ABG Base Excess FiO2 Sodium 130 L Potassium 3.4 Chloride 104.0 Carbon Dioxide 21.0 L BUN 11.0 Creatinine 0.50 L Estimated GFR > 60.0 BUN/Creatinine Ratio 22.0 Glucose 88 Calcium 6.5 L Total Bilirubin 0.4 AST 15 L ALT 30 Alkaline Phosphatase 71 Total Protein 3.1 L* Albumin 1.2 L Globulin 1.9 Albumin/Globulin Ratio 0.6 L Blood Type Antibody Screen Antibody Identification Crossmatch ([facility]) See Detail 03/25/18 03/26/18 03/26/18 13:00 05:10 05:10 WBC 23.9 H RBC 3.61 L Hgb 10.5 L Hct 31.3 L MCV 86.7 MCH 29.1 MCHC 33.6 RDW 16.1 H Plt Count 221 Neut % (Auto) Not Reportable Lymph % (Auto) Not Reportable [place] % (Auto) Not Reportable Eos % (Auto) Not Reportable Baso % (Auto) Not Reportable Total Counted 100 Seg Neutrophils % 96.0 H Band Neutrophils % Lymphocytes % (Manual) 3.0 L Monocytes % (Manual) 1.0 L Neutrophils # (Manual) 44158 H Nucleated RBCs 3 H Differential Comment Not Reportable Hypersegmented Neuts Y Hypochromasia 2+ H Poikilocytosis 2+ H Anisocytosis 2+ H Microcytosis 1+ H Target Cells 2+ H [place] Cells ABG pH ABG pCO2 ABG pO2 ABG HCO3 ABG Total CO2 ABG O2 Saturation ABG Base Excess FiO2 Sodium 132 L Potassium 3.3 L Chloride 102.0 Carbon Dioxide 24.0 BUN 8.0 L Creatinine 0.40 L Estimated GFR > 60.0 BUN/Creatinine Ratio 20.0 Glucose 122 H Calcium 6.6 L Total Bilirubin AST ALT Alkaline Phosphatase Total Protein Albumin Globulin Albumin/Globulin Ratio Blood Type O Positive Antibody Screen Positive Antibody Identification Anti-K Crossmatch ([facility]) See Detail 03/26/18 05:15 WBC RBC Hgb Hct MCV MCH MCHC RDW Plt Count Neut % (Auto) Lymph % (Auto) [place] % (Auto) Eos % (Auto) Baso % (Auto) Total Counted Seg Neutrophils % Band Neutrophils % Lymphocytes % (Manual) Monocytes % (Manual) Neutrophils # (Manual) Nucleated RBCs Differential Comment Hypersegmented Neuts Hypochromasia Poikilocytosis Anisocytosis Microcytosis Target Cells [place] Cells ABG pH 7.44 ABG pCO2 33.2 L ABG pO2 79 L ABG HCO3 22 L ABG Total CO2 23 ABG O2 Saturation 96 ABG Base Excess -2.0 FiO2 0.40 Sodium Potassium Chloride Carbon Dioxide BUN Creatinine Estimated GFR BUN/Creatinine Ratio Glucose Calcium Total Bilirubin AST ALT Alkaline Phosphatase Total Protein Albumin Globulin Albumin/Globulin Ratio Blood Type Antibody Screen Antibody Identification Crossmatch ([facility]) Assessment & Plan (1) Perforated bowel: Problem details: 43-year-old male now postoperative day 3 from ment of hissedation vacation and CPAP trial with hopes of extubating in the next 24 hr. Current visit: Yes Status: Acute Orders: My Active Orders 03/25/18 14:00 Fluconazole [Diflucan] 400 mg in 200 ml IV Q24H 03/25/18 17:58 LORazepam [Ativan] 1 mg IV Q1HR PRN 03/25/18 18:00 Potassium Chloride [Krider] 30 meq Calcium Gluconate 5.2 meq Magnesium Sulfate 1 gm Multivitamin [Infuvite Adult] 10 ml Trace Elements [Multitrace-5 Conc] 1 ml Insulin Regular, Human [Humulin R] 10 unit Famotidine [Pepcid] 30 mg Aa 5 %/Calcium/Lytes/Dext 25 % [Clinimix E 5%-25% Solution] 1,000 ml IV 1800 03/26/18 05:00 Basic Metabolic Panel Routine CBC [Complete Blood Count AUTO DIFF] Routine 03/26/18 09:00 Sodium Chloride 0.9% [Normal Saline 0.9%] 250 ml IV CONT 03/26/18 18:00 Fat Emulsions [Intralipid] 50 gm in 250 ml IV 1800 03/26/18 18:01 Potassium Chloride [Krider] 70 meq Calcium Gluconate 5.2 meq Magnesium Sulfate 1 gm Multivitamin [Infuvite Adult] 10 ml Trace Elements [Multitrace-5 Conc] 1 ml Famotidine [Pepcid] 30 mg Aa 5 %/Calcium/Lytes/Dext 25 % [Clinimix E 5%-25% Solution] 1,000 ml IV 1800 03/27/18 05:00 Basic Metabolic Panel Routine Calcium Routine Hemoglobin and Hematocrit Routine Magnesium Routine Phosphorous Routine (2) Septic shock: Problem details: Secondary to perforated bowel. Resolved. Continue treating the underlying cause. DC IV fluid. Current visit: Yes Status: Acute Orders: My Active Orders 03/25/18 14:00 Fluconazole [Diflucan] 400 mg in 200 ml IV Q24H 03/25/18 17:58 LORazepam [Ativan] 1 mg IV Q1HR PRN 03/25/18 18:00 Potassium Chloride [Krider] 30 meq Calcium Gluconate 5.2 meq Magnesium Sulfate 1 gm Multivitamin [Infuvite Adult] 10 ml Trace Elements [Multitrace-5 Conc] 1 ml Insulin Regular, Human [Humulin R] 10 unit Famotidine [Pepcid] 30 mg Aa 5 %/Calcium/Lytes/Dext 25 % [Clinimix E 5%-25% Solution] 1,000 ml IV 1800 03/26/18 05:00 Basic Metabolic Panel Routine CBC [Complete Blood Count AUTO DIFF] Routine 03/26/18 09:00 Sodium Chloride 0.9% [Normal Saline 0.9%] 250 ml IV CONT 03/26/18 18:00 Fat Emulsions [Intralipid] 50 gm in 250 ml IV 1800 03/26/18 18:01 Potassium Chloride [Krider] 70 meq Calcium Gluconate 5.2 meq Magnesium Sulfate 1 gm Multivitamin [Infuvite Adult] 10 ml Trace Elements [Multitrace-5 Conc] 1 ml Famotidine [Pepcid] 30 mg Aa 5 %/Calcium/Lytes/Dext 25 % [Clinimix E 5%-25% Solution] 1,000 ml IV 1800 03/27/18 05:00 Basic Metabolic Panel Routine Calcium Routine Hemoglobin and Hematocrit Routine Magnesium Routine Phosphorous Routine (3) Acute respiratory failure following trauma and surgery: Problem details: Continue CPAP trials and sedation vacation. Possible extubate in the next 24 hr. Current visit: Yes Status: Acute Orders: My Active Orders 03/25/18 14:00 Fluconazole [Diflucan] 400 mg in 200 ml IV Q24H 03/25/18 17:58 LORazepam [Ativan] 1 mg IV Q1HR PRN 03/25/18 18:00 Potassium Chloride [Krider] 30 meq Calcium Gluconate 5.2 meq Magnesium Sulfate 1 gm Multivitamin [Infuvite Adult] 10 ml Trace Elements [Multitrace-5 Conc] 1 ml Insulin Regular, Human [Humulin R] 10 unit Famotidine [Pepcid] 30 mg Aa 5 %/Calcium/Lytes/Dext 25 % [Clinimix E 5%-25% Solution] 1,000 ml IV 1800 03/26/18 05:00 Basic Metabolic Panel Routine CBC [Complete Blood Count AUTO DIFF] Routine 03/26/18 09:00 Sodium Chloride 0.9% [Normal Saline 0.9%] 250 ml IV CONT 03/26/18 18:00 Fat Emulsions [Intralipid] 50 gm in 250 ml IV 1800 03/26/18 18:01 Potassium Chloride [Krider] 70 meq Calcium Gluconate 5.2 meq Magnesium Sulfate 1 gm Multivitamin [Infuvite Adult] 10 ml Trace Elements [Multitrace-5 Conc] 1 ml Famotidine [Pepcid] 30 mg Aa 5 %/Calcium/Lytes/Dext 25 % [Clinimix E 5%-25% Solution] 1,000 ml IV 1800 03/27/18 05:00 Basic Metabolic Panel Routine Calcium Routine Hemoglobin and Hematocrit Routine Magnesium Routine Phosphorous Routine (4) Pulmonary edema: Problem details: DC maintenance IV fluid. He had improvement with IV furosemide 20 mg last night. We will continue monitor his fluid status and respiration. We may need to repeat furosemide IV if his blood pressure tolerates. Current visit: Yes Status: Acute Orders: My Active Orders 03/25/18 14:00 Fluconazole [Diflucan] 400 mg in 200 ml IV Q24H 03/25/18 17:58 LORazepam [Ativan] 1 mg IV Q1HR PRN 03/25/18 18:00 Potassium Chloride [Krider] 30 meq Calcium Gluconate 5.2 meq Magnesium Sulfate 1 gm Multivitamin [Infuvite Adult] 10 ml Trace Elements [Multitrace-5 Conc] 1 ml Insulin Regular, Human [Humulin R] 10 unit Famotidine [Pepcid] 30 mg Aa 5 %/Calcium/Lytes/Dext 25 % [Clinimix E 5%-25% Solution] 1,000 ml IV 1800 03/26/18 05:00 Basic Metabolic Panel Routine CBC [Complete Blood Count AUTO DIFF] Routine 03/26/18 09:00 Sodium Chloride 0.9% [Normal Saline 0.9%] 250 ml IV CONT 03/26/18 18:00 Fat Emulsions [Intralipid] 50 gm in 250 ml IV 1800 03/26/18 18:01 Potassium Chloride [Krider] 70 meq Calcium Gluconate 5.2 meq Magnesium Sulfate 1 gm Multivitamin [Infuvite Adult] 10 ml Trace Elements [Multitrace-5 Conc] 1 ml Famotidine [Pepcid] 30 mg Aa 5 %/Calcium/Lytes/Dext 25 % [Clinimix E 5%-25% Solution] 1,000 ml IV 1800 03/27/18 05:00 Basic Metabolic Panel Routine Calcium Routine Hemoglobin and Hematocrit Routine Magnesium Routine Phosphorous Routine (5) Hypokalemia due to inadequate potassium intake: Problem details: We will give him another K rider today. I have also contacted pharmacy to add more potassium in the TPN bag. We will continue monitor his electrolytes. Current visit: Yes Status: Acute Orders: My Active Orders 03/25/18 14:00 Fluconazole [Diflucan] 400 mg in 200 ml IV Q24H 03/25/18 17:58 LORazepam [Ativan] 1 mg IV Q1HR PRN 03/25/18 18:00 Potassium Chloride [Krider] 30 meq Calcium Gluconate 5.2 meq Magnesium Sulfate 1 gm Multivitamin [Infuvite Adult] 10 ml Trace Elements [Multitrace-5 Conc] 1 ml Insulin Regular, Human [Humulin R] 10 unit Famotidine [Pepcid] 30 mg Aa 5 %/Calcium/Lytes/Dext 25 % [Clinimix E 5%-25% Solution] 1,000 ml IV 1800 03/26/18 05:00 Basic Metabolic Panel Routine CBC [Complete Blood Count AUTO DIFF] Routine 03/26/18 09:00 Sodium Chloride 0.9% [Normal Saline 0.9%] 250 ml IV CONT 03/26/18 18:00 Fat Emulsions [Intralipid] 50 gm in 250 ml IV 1800 03/26/18 18:01 Potassium Chloride [Krider] 70 meq Calcium Gluconate 5.2 meq Magnesium Sulfate 1 gm Multivitamin [Infuvite Adult] 10 ml Trace Elements [Multitrace-5 Conc] 1 ml Famotidine [Pepcid] 30 mg Aa 5 %/Calcium/Lytes/Dext 25 % [Clinimix E 5%-25% Solution] 1,000 ml IV 1800 03/27/18 05:00 Basic Metabolic Panel Routine Calcium Routine Hemoglobin and Hematocrit Routine Magnesium Routine Phosphorous Routine (6) Hypocalcemia: Problem details: We will give him another gram of IV calcium this morning Current visit: Yes Status: Acute Orders: My Active Orders 03/25/18 14:00 Fluconazole [Diflucan] 400 mg in 200 ml IV Q24H 03/25/18 17:58 LORazepam [Ativan] 1 mg IV Q1HR PRN 03/25/18 18:00 Potassium Chloride [Krider] 30 meq Calcium Gluconate 5.2 meq Magnesium Sulfate 1 gm Multivitamin [Infuvite Adult] 10 ml Trace Elements [Multitrace-5 Conc] 1 ml Insulin Regular, Human [Humulin R] 10 unit Famotidine [Pepcid] 30 mg Aa 5 %/Calcium/Lytes/Dext 25 % [Clinimix E 5%-25% Solution] 1,000 ml IV 1800 03/26/18 05:00 Basic Metabolic Panel Routine CBC [Complete Blood Count AUTO DIFF] Routine 03/26/18 09:00 Sodium Chloride 0.9% [Normal Saline 0.9%] 250 ml IV CONT 03/26/18 18:00 Fat Emulsions [Intralipid] 50 gm in 250 ml IV 1800 03/26/18 18:01 Potassium Chloride [Krider] 70 meq Calcium Gluconate 5.2 meq Magnesium Sulfate 1 gm Multivitamin [Infuvite Adult] 10 ml Trace Elements [Multitrace-5 Conc] 1 ml Famotidine [Pepcid] 30 mg Aa 5 %/Calcium/Lytes/Dext 25 % [Clinimix E 5%-25% Solution] 1,000 ml IV 1800 03/27/18 05:00 Basic Metabolic Panel Routine Calcium Routine Hemoglobin and Hematocrit Routine Magnesium Routine Phosphorous Routine Plan: Plan:
[2018-03-26] MEDS: FLUCONAZOLE 400 MG/200 ML PIGGYBACK 100 MG IV (13:38)
--- NOTE | 2018-03-26 14:25 | PM.PN.1 ---
Subjective Interval history: Patient had hypoxic episode last night requiring increased PEEP and FiO2. Received Lasix early this morning per the internal medicine service. Currently stabilized back to minimal ventilatory settings. Date Patient Seen: 03/26/18 Time Patient Seen: 08:00 Exam Vital Signs (past 8 hours): Vital Signs - 8 hr 03/26/18 07:28 03/26/18 08:00 03/26/18 09:57 Temperature 99.8 F H 100.2 F H Pulse Rate 108 H 107 H Respiratory Rate 16 17 Blood Pressure 103/61 94/52 L Pulse Oximetry 100 100 03/26/18 12:06 03/26/18 12:08 03/26/18 14:11 Temperature 99.1 F Pulse Rate 109 H 106 H Respiratory Rate 17 16 Blood Pressure 88/53 L 97/51 L Pulse Oximetry 98 100 99 Temperature 99.1 F Temperature 100.2 F Temperature 99.8 F Pulse Rate 106 Pulse Rate 109 Pulse Rate 107 Pulse Rate 108 Respiratory Rate 16 Respiratory Rate 17 Respiratory Rate 17 Respiratory Rate 16 Blood Pressure 97/51 Blood Pressure 88/53 Blood Pressure 94/52 Blood Pressure 103/61 Pulse Oximetry 99 Pulse Oximetry 100 Pulse Oximetry 98 Pulse Oximetry 100 Pulse Oximetry 100 Oxygen Delivery Method Mechanical Ventilation Oxygen Delivery Method Mechanical Ventilation Oxygen Delivery Method Mechanical Ventilation Oxygen Delivery Method Mechanical Ventilation Oxygen Flow Rate 30 Oxygen Flow Rate 40 Narrative Exam Narrative: Remains intubated and sedated. Had fevers throughout the evening and again this morning resulting in some associated tachycardia Nasogastric tube is collecting bilious fluid at approximately 150 cc overnight Abdomen is soft and minimally distended. He is appropriately tender. Ileostomy is pink and viable. No output in the appliance as yet. The appliance was changed yesterday per the enterostomal therapist. I personally change the wound VAC device this morning with the assistance of the nursing staff. Wound bed show some early granulation. No pus or exudate. Fascial suture line remains intact. Skin edges are clean without erythema Wound VAC output has been minimal as well Isacc-Lopez drains are collecting serous fluid only. Output is diminishing nicely Extremities are perfused but remained with +1 edema bilaterally Objective Labs Result Diagrams: 03/26/18 05:10 03/26/18 05:10 Labs: Laboratory Results - last 24 hr 03/22/18 03/25/18 03/25/18 07:15 05:40 06:30 WBC 32.6 H* RBC 2.68 L Hgb 7.7 L Hct 23.0 L MCV 85.7 MCH 28.8 MCHC 33.5 RDW 17.1 H Plt Count 268 Neut % (Auto) Lymph % (Auto) [place] % (Auto) Eos % (Auto) Baso % (Auto) Total Counted 100 Seg Neutrophils % 90.0 H Band Neutrophils % 8.0 H Lymphocytes % (Manual) 1.0 L Monocytes % (Manual) 1.0 L Neutrophils # (Manual) 20191 H Nucleated RBCs Differential Comment Primer Charging Tool Setter Hypersegmented Neuts Hypochromasia Poikilocytosis 1+ H Anisocytosis 2+ H Microcytosis Target Cells [place] Cells 1+ H ABG pH ABG pCO2 ABG pO2 ABG HCO3 ABG Total CO2 ABG O2 Saturation ABG Base Excess FiO2 Sodium 130 L Potassium 3.4 Chloride 104.0 Carbon Dioxide 21.0 L BUN 11.0 Creatinine 0.50 L Estimated GFR > 60.0 BUN/Creatinine Ratio 22.0 Glucose 88 Calcium 6.5 L Total Bilirubin 0.4 AST 15 L ALT 30 Alkaline Phosphatase 71 Total Protein 3.1 L* Albumin 1.2 L Globulin 1.9 Albumin/Globulin Ratio 0.6 L Blood Type Antibody Screen Antibody Identification Crossmatch ([facility]) See Detail 03/25/18 03/26/18 03/26/18 13:00 05:10 05:10 WBC 23.9 H RBC 3.61 L Hgb 10.5 L Hct 31.3 L MCV 86.7 MCH 29.1 MCHC 33.6 RDW 16.1 H Plt Count 221 Neut % (Auto) Not Reportable Lymph % (Auto) Not Reportable [place] % (Auto) Not Reportable Eos % (Auto) Not Reportable Baso % (Auto) Not Reportable Total Counted 100 Seg Neutrophils % 96.0 H Band Neutrophils % Lymphocytes % (Manual) 3.0 L Monocytes % (Manual) 1.0 L Neutrophils # (Manual) 72867 H Nucleated RBCs 3 H Differential Comment Not Reportable Hypersegmented Neuts Y Hypochromasia 2+ H Poikilocytosis 2+ H Anisocytosis 2+ H Microcytosis 1+ H Target Cells 2+ H [place] Cells ABG pH ABG pCO2 ABG pO2 ABG HCO3 ABG Total CO2 ABG O2 Saturation ABG Base Excess FiO2 Sodium 132 L Potassium 3.3 L Chloride 102.0 Carbon Dioxide 24.0 BUN 8.0 L Creatinine 0.40 L Estimated GFR > 60.0 BUN/Creatinine Ratio 20.0 Glucose 122 H Calcium 6.6 L Total Bilirubin AST ALT Alkaline Phosphatase Total Protein Albumin Globulin Albumin/Globulin Ratio Blood Type O Positive Antibody Screen Positive Antibody Identification Anti-K Crossmatch ([facility]) See Detail 03/26/18 05:15 WBC RBC Hgb Hct MCV MCH MCHC RDW Plt Count Neut % (Auto) Lymph % (Auto) [place] % (Auto) Eos % (Auto) Baso % (Auto) Total Counted Seg Neutrophils % Band Neutrophils % Lymphocytes % (Manual) Monocytes % (Manual) Neutrophils # (Manual) Nucleated RBCs Differential Comment Hypersegmented Neuts Hypochromasia Poikilocytosis Anisocytosis Microcytosis Target Cells [place] Cells ABG pH 7.44 ABG pCO2 33.2 L ABG pO2 79 L ABG HCO3 22 L ABG Total CO2 23 ABG O2 Saturation 96 ABG Base Excess -2.0 FiO2 0.40 Sodium Potassium Chloride Carbon Dioxide BUN Creatinine Estimated GFR BUN/Creatinine Ratio Glucose Calcium Total Bilirubin AST ALT Alkaline Phosphatase Total Protein Albumin Globulin Albumin/Globulin Ratio Blood Type Antibody Screen Antibody Identification Crossmatch ([facility]) Assessment & Plan Plan: Plan: 43-year-old male now postoperative day number 3 subtotal colectomy with ileostomy for perforated toxic megacolon secondary to ulcerative colitis now with significant sepsis. However, his acidosis has corrected. I would remain cautious with diuresis given that we just were able to adequately volume resuscitate him in the midst of his sepsis. I anticipate that he will spontaneously began to mobilize fluids in the next 24-48 hours. Because of the hypoxic episode which may have been simple secretions I would not plan to extubate today. Continue CPAP trials and hold sedation periodically. Pain appears to be well controlled with morphine and 2 milligrams/hour currently. Continue TPN and lipids. Insulin in the TPN was discontinued today due to marginally low blood sugars yesterday. Additional calcium and potassium were added. Total IV fluids including TPN have been decreased to approximately 100 cc/hour. Check his electrolytes and CBC tomorrow. Continue Levaquin, clindamycin, gentamicin, and Diflucan for intra-abdominal sepsis and peritonitis. DVT prophylaxis remains with SCDs and Lovenox. Plan next wound VAC change in 3 days. Arterial line has been discontinued. Family updated.
--- NOTE | 2018-03-26 14:28 | DIET.PN ---
TPN initiated at 1800 on Friday, 25 Mar 2018. Initial nutrient composition 1000mL 5/25 Clinimix for 50 g AA and 250 g dextrose. This provides approx 55% of goal AA and 70% of goal dextrose. Same volume of 5/25 Clinimix ordered for 1800 on , 26 Mar 2018. Calculated nutrition needs (ultimate goal for TPN) for this pt: Custom - 800ml D50W; 1000ml 10% AA to provide 1760 kcal; 400g dextrose (3-4mg/kg/min= 311-423g rec); 100g protein. Additional lipid kcals provided by propofol. Addition of 250ml 20% lipid every other day while propofol still being given will bring total kcal up to approx 2000 kcal; advance to 250ml 20% lipid QD once propofol d/c'd. May Ziegler, internist Bindu Ware RDN
[2018-03-26] MEDS: GENTAMICIN TROUGH 1 REQUEST MISC (17:37)
[2018-03-26] MEDS: PROPOFOL 1,000 MG/100 ML VIAL 4.995 MG IV (17:46)
[2018-03-26] MEDS: DEXTROSE 5% WATER 500 ML 10 ML IV (17:48)
[2018-03-26] MEDS: ENOXAPARIN 40 MG/0.4 ML SYRINGE SUBCUT (17:50)
[2018-03-26] MEDS: LYTES IV (18:02)
[2018-03-26] MEDS: POTASSIUM CHLORIDE IV (18:02)
[2018-03-26] MEDS: CALCIUM IV (18:02)
[2018-03-26] MEDS: DEXT IV (18:02)
[2018-03-26] MEDS: [UNRECOGNIZED DRUG - OTHER] IV (18:02)
[2018-03-26] MEDS: FAT EMULSIONS 50 GM/250 ML EMULSION IV (18:02)
[2018-03-26] MEDS: GENTAMICIN PEAK 1 REQUEST MISC (21:01)
[2018-03-26 21:51] LABS: Gentamicin Peak 4.8 ug/mL (5.0-8.0)
[2018-03-27] VITALS (23 sets, daily range): BP systolic 95–123; BP diastolic 48–71; PULSE 109–127; RESP 16–43; TEMP 37.1–37.9; O2SAT 96–100
[2018-03-27] MEDS: CLINDAMYCIN 900 MG/50 ML PIGGYBACK 50 MG IV ×3 (01:16→17:18)
[2018-03-27] MEDS: GENTAMICIN 120 MG in SODIUM CHLORIDE 0.9% 100 ML 103 ML IV ×2 (06:01→18:54)
[2018-03-27] MEDS: INSULIN ASPART 100 UNIT/ML INSULN PEN SUBCUT ×2 (06:04→12:16)
[2018-03-27 06:30] LABS: Hematocrit 27.7 % (41-53); Hemoglobin 9.5 g/dL (13.5-17.5)
[2018-03-27 06:44] LABS: Calcium 6.6 mg/dL (8.4-10.2); Estimated Glomerular Filt Rate > 60.0 mL/min (>60); Glucose 122 mg/dL (70-100); HEMOLYSIS 17 (0-50); Magnesium 1.8 mg/dL (1.6-2.3); Phosphorous 4.5 mg/dL (2.5-4.5); Potassium 3.7 mmol/L (3.4-5.1); Sodium 132 mmol/L (137-145)
[2018-03-27] MEDS: PANTOPRAZOLE 40 MG VIAL IV (08:50)
[2018-03-27] MEDS: SODIUM CHLORIDE 0.9% FLUSH 10 ML IV ×3 (08:51→20:11)
--- NOTE | 2018-03-27 09:45 | P.PN_ITS ---
Subjective Interval history: Patient is been stable overnight. Remains intubated on the ventilator. However, his ventilator settings are minimal at volume control IMV rate of 16, peep of 5, 30% FiO2, and tidal volume of 500. Saturations remained 100%. Sedation has been temporarily decreased and he is arousable moving all extremities. Exam Vital Signs (past 8 hours): Vital Signs - 8 hr 03/27/18 02:00 03/27/18 04:05 03/27/18 06:00 Temperature 100.3 F H 99.6 F Pulse Rate 110 H 110 H 110 H Respiratory Rate 16 16 16 Blood Pressure 105/48 L 103/52 L 102/57 L Pulse Oximetry 99 97 100 03/27/18 06:33 03/27/18 08:04 Temperature 99.3 F Pulse Rate 109 H Respiratory Rate 18 Blood Pressure 105/56 L Pulse Oximetry 100 100 Temperature 99.3 F Temperature 99.6 F Temperature 100.3 F Pulse Rate 109 Pulse Rate 110 Pulse Rate 110 Pulse Rate 110 Respiratory Rate 18 Respiratory Rate 16 Respiratory Rate 16 Respiratory Rate 16 Blood Pressure 105/56 Blood Pressure 102/57 Blood Pressure 103/52 Blood Pressure 105/48 Pulse Oximetry 100 Pulse Oximetry 100 Pulse Oximetry 100 Pulse Oximetry 97 Pulse Oximetry 97 Pulse Oximetry 99 Fraction of Inspired Oxygen 30 Fraction of Inspired Oxygen 30 Fraction of Inspired Oxygen 30 Oxygen Delivery Method Mechanical Ventilation Oxygen Delivery Method Mechanical Ventilation Oxygen Delivery Method Mechanical Ventilation Oxygen Flow Rate 30 Oxygen Flow Rate 30 Narrative Exam Narrative: Patient lying comfortably an ICU bed on ventilator. Remains mildly tachycardic with nursing care. Sinus rhythm on monitor. Blood pressure is stable with systolic of 100-110 mm Hg. Continues to spontaneously diurese with copious clear urine output. He has received no further diuretics. Nasogastric tube output remains bilious but relatively low volume. No ileostomy output including flatus as yet. Wound VAC output is minimal and mostly clear drainage. Device remains intact over the wound. Isacc-Lopez drains have diminished significantly with regard output. Fluid is serous only. No pus. No blood. Chest is relatively clear to auscultation but decreased breath sounds bilateral bases. No wheezes currently. No crackles. Abdomen is soft and minimally distended. He is appropriately tender to palpation. No guarding or rebound. Ileostomy is pink and viable. No erythema of abdominal skin. Extremities show no clubbing or cyanosis. Continues with +1 pretibial and ankle edema bilaterally. However, all extremities are warm and perfused currently. Objective Labs Result Diagrams: 03/27/18 05:15 03/27/18 05:15 Labs: Laboratory Results - last 24 hr 03/26/18 03/26/18 03/27/18 17:24 20:30 05:15 Hgb Hct Sodium 132 L Potassium 3.7 Chloride 100.0 Carbon Dioxide 25.0 BUN 6.0 L Creatinine 0.30 L Estimated GFR > 60.0 BUN/Creatinine Ratio 20.0 Glucose 122 H Calcium 6.6 L Phosphorus 4.5 Magnesium 1.8 Gentamicin Peak 4.8 L Gentamicin Trough 1.0 03/27/18 05:15 Hgb 9.5 L Hct 27.7 L Sodium Potassium Chloride Carbon Dioxide BUN Creatinine Estimated GFR BUN/Creatinine Ratio Glucose Calcium Phosphorus Magnesium Gentamicin Peak Gentamicin Trough Assessment & Plan Plan: Plan: 43-year-old male now postoperative day 4 from subtotal colectomy with ileostomy and slowly resolving septic shock. His fluid status and acid-base status appears to be corrected currently. He is now mobilizing fluids and spontaneously diuresing well. Electrolytes are normalizing and stable. Magnesium and phosphorus are normal. We will continue TPN at current formulation and rate. Continue lipids daily also. Continue nasogastric decompression and await bowel function. His respiratory status is optimized currently. Therefore, I believe he can be weaned and potentially extubated today after CPAP trials. Propofol to be weaned per protocol. Decrease morphine 1 milligram/hour. Discontinue lactated Ringer's. Continue wound VAC with planned dressing change in another 2 days. He remains on intravenous Levaquin, clindamycin, gentamicin, and Diflucan for his intra-abdominal sepsis secondary to perforated colon. Continue Isacc-Lopez drains for now. Once he has adequately mobilized all fluids we will discontinue the drains at the bedside. He remains on DVT prophylaxis including SCDs and Lovenox. Continue Momin which is necessary given prolonged immobilization and need for strict I& Os in the ICU. Blood sugars remained stable on sliding scale insulin. He requires no insulin in the TPN. Will check chest x-ray in the morning. Laboratory holiday tomorrow. All above discussed with nursing staff and respiratory therapy today. Orders written. Quality VTE Deep Vein Thrombosis/Pulmonary Embolism Present on Admission: No
[2018-03-27] MEDS: DEXTROSE 5% WATER 500 ML 21 ML IV ×2 (10:10→11:56)
[2018-03-27] MEDS: levoFLOXacin 750 MG/150 ML PIGGYBACK 100 MG IV (11:34)
[2018-03-27] MEDS: FLUCONAZOLE 400 MG/200 ML PIGGYBACK 100 MG IV (13:43)
--- NOTE | 2018-03-27 14:59 | PC.NURSE ---
pt extubated to 2L/NC at 1420, tolerated well. mouth care done, brushed teeth. pt weak, weak cough. oropharnyx suctioning done.
[2018-03-27] MEDS: SODIUM CHLORIDE 0.9% 500 ML 21 ML IV (17:17)
[2018-03-27] MEDS: ENOXAPARIN 40 MG/0.4 ML SYRINGE SUBCUT (17:18)
[2018-03-27] MEDS: POTASSIUM CHLORIDE IV (17:46)
[2018-03-27] MEDS: CALCIUM IV (17:46)
[2018-03-27] MEDS: [UNRECOGNIZED DRUG - OTHER] IV (17:46)
[2018-03-27] MEDS: DEXT IV (17:46)
[2018-03-27] MEDS: FAT EMULSIONS 50 GM/250 ML EMULSION IV (17:46)
[2018-03-27] MEDS: LYTES IV (17:46)
--- NOTE | 2018-03-27 18:02 | PC.NURSE ---
Ostomy Nurse Consult Note Collin awake and whispers lightly. He was listening to my instructions regarding changing is ostomy appliance. The stoma is edematous, moist, beefy red. It measures 1 inch and is budded about an inch above his skin level. The sutures are intact. There was a small amount of clear yellow drainage about 5 cc. The juliane-stomal skin is intact. I changed the appliance and replaced it with a Convatec Moldable 45mm two piece with a transparent pouch and an caddie. Collin is extubated. He has an NG tube that is draining green drainage. Both CEDRICK drains one on his right abd, just below the ostomy and one on his left abd, they are both draining serosanguenous drainage. He has a KCI negative wound pressure dressing at 125HHmg Continuous with a small amount of serosanguenous drainage. His huff cath is draining clear yellow drainage. I will return on Friday to change his appliance and continue with ostomy teaching. I did leave the [facility] booklet on ileostomy.
--- NOTE | 2018-03-27 19:17 | PC.NURSE ---
Addendum entered by Bere Levi R.N. 03/27/18 21:26: 2100 - Patient's heart rate 124 consistently. Denies pain when asked. Blood pressure 119/68. Dr. Levin notified of tachycardia, see new order for H&H. Original Note: 1914 - Patient noted to have NG tube pulled almost all the way out. Reinserted NG tube to original location. Auscultated bubbles in stomach and green gastric contents resumed coming out of NG tube. Patient tolerated all well. Resecured NG tube to nose.
[2018-03-27] MEDS: LORazepam 2 MG/ML SYRINGE 1 MG IV (20:10)
[2018-03-27 21:28] LABS: Hemoglobin 10.7 g/dL (13.5-17.5)
[2018-03-27] MEDS: MORPHINE PCA 30 MG/30 ML PCA.VIAL IV (22:54)
[2018-03-28] VITALS (15 sets, daily range): BP systolic 106–123; BP diastolic 54–75; PULSE 89–127; RESP 18–30; TEMP 36.9–38.1; O2SAT 92–96
[2018-03-28] MEDS: CLINDAMYCIN 900 MG/50 ML PIGGYBACK 50 MG IV ×3 (01:19→17:34)
[2018-03-28] MEDS: GENTAMICIN 120 MG in SODIUM CHLORIDE 0.9% 100 ML 103 ML IV ×2 (05:59→18:36)
--- NOTE | 2018-03-28 06:00 | DI.RAD.S_ITS ---
PROCEDURE: XR CHEST 1V INDICATIONS: Hypoxia and secretions status post perforated colon TECHNIQUE: One view of the chest was acquired. COMPARISON: [facility], CR, XR CHEST 1V, 03/26/2018, 6:02. FINDINGS: Surgical changes and devices: Right-sided venous catheter as well as nasogastric tube are unchanged. Lungs and pleura: There is increased pulmonary vascularity as well as increased bibasilar opacities, left greater than right with bilateral effusions. Mediastinum: Mediastinal contours appear normal. Heart size is normal. No visualized free air. Bones and chest wall: No suspicious bony lesions. Overlying soft tissues appear unremarkable. IMPRESSION: Interval increased pulmonary vascularity consistent with edema. In addition, there is increased mild effusions as well as bibasilar/retrocardiac opacities. The latter could be sales representatives of edema versus developing airspace disease such as pneumonia and/or atelectasis. Dictated by: Michelle Thacker M.D. on 03/28/2018 at 8:35 Approved by: Michelle Thacker M.D. on 03/28/2018 at 8:36
[2018-03-28] MEDS: INSULIN ASPART 100 UNIT/ML INSULN PEN SUBCUT (06:27)
--- NOTE | 2018-03-28 08:53 | PC.NURSE ---
pt awake, voice is a whisper. using ipad. encouraged ankle pumps. TPN infusing. 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 pt states pain about 4 out of 10.
[2018-03-28] MEDS: SODIUM CHLORIDE 0.9% FLUSH 10 ML IV ×3 (09:45→21:25)
[2018-03-28] MEDS: PANTOPRAZOLE 40 MG VIAL IV (09:45)
--- NOTE | 2018-03-28 11:41 | PC.NURSE ---
pt dangled at bed side with 2 person assist to sit. pt did ankle pumps while dangling. states abd pain 6 out of 10. pt has weak congested cough; uses yanker suction tip to clear mouth.
[2018-03-28] MEDS: levoFLOXacin 750 MG/150 ML PIGGYBACK 100 MG IV (12:29)
--- NOTE | 2018-03-28 14:05 | PM.PN.1 ---
Subjective Interval history: Patient awake and alert sitting comfortably in the bed. Oriented x3. Voiced remains quite weak and soft. Conversation is barely audible but he formulate words appropriately. 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 Wishes to have something to drink orally. Asking when the nasogastric tube can be removed. Denies shortness of breath. Exam Vital Signs (past 8 hours): Vital Signs - 8 hr 03/28/18 06:10 03/28/18 08:00 03/28/18 08:30 Temperature 99.8 F H 98.6 F Pulse Rate 121 H 112 H Respiratory Rate 29 H 23 Blood Pressure 117/73 116/70 Pulse Oximetry 96 95 96 03/28/18 10:00 03/28/18 12:00 03/28/18 12:39 Temperature 99.1 F Pulse Rate 113 H 113 H Respiratory Rate 27 H 18 Blood Pressure 118/75 114/73 Pulse Oximetry 96 96 94 Temperature 99.1 F Temperature 98.6 F Temperature 99.8 F Pulse Rate 113 Pulse Rate 113 Pulse Rate 112 Pulse Rate 121 Respiratory Rate 18 Respiratory Rate 27 Respiratory Rate 23 Respiratory Rate 29 Blood Pressure 114/73 Blood Pressure 118/75 Blood Pressure 116/70 Blood Pressure 117/73 Pulse Oximetry 94 Pulse Oximetry 96 Pulse Oximetry 96 Pulse Oximetry 96 Pulse Oximetry 95 Pulse Oximetry 96 Oxygen Delivery Method Room Air Oxygen Delivery Method Room Air Oxygen Delivery Method Nasal Cannula Oxygen Delivery Method Nasal Cannula Oxygen Flow Rate 1 Narrative Exam Narrative: Sclera nonicteric Copious secretions without wheezes. Very poor cough effort due to weakness. Still requiring assistance with oral suctioning. Remains tachycardic in sinus rhythm otherwise Blood pressure normal. Patient maintaining saturations on room air current L&I. Nasogastric tube output is only approximately 150 cc per shift but is very dark bilious in nature. Isacc-Lopez tube output is serous only and diminishing daily in volume Wound VAC is collecting scant fluid only Urine output is clear and copious. Patient is spontaneously diuresing. Abdomen is soft and nondistended. He is appropriately tender to palpation without guarding or rebound. Ileostomy is pink and viable. Mildly edematous. Minimal amount of air in the appliance but no stool as yet. Skin is without erythema. He does have a diffuse mildly erythematous rash in the inguinal regions bilaterally and extending along the back. He denies pruritus. No bulla or hives. Extremities are perfused. Moves all extremities appropriately. Plus one edema bilateral ankles remains stable. Objective Labs Result Diagrams: 03/27/18 21:15 03/27/18 05:15 Labs: Laboratory Results - last 24 hr 03/27/18 21:15 Hgb 10.7 L Hct 32.0 L Assessment & Plan Plan: Plan: 43-year-old male now postoperative day 5 from subtotal colectomy for perforated toxic megacolon secondary to ulcerative colitis extubated yesterday and doing well. However, he is still having difficulties mobilizing secretions. He does have some residual pulmonary edema but no obvious pneumonia. Consult Respiratory therapy for nebulizer treatment and nasotracheal suctioning. Consult physical therapy for mobilization. I suspect he will require long-term rehabilitation given his overall severe protein malnutrition and weakness. Sepsis is resolving but we will continue the antibiotics as ordered for total of at least 10 days of therapy. 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 Check laboratory studies tomorrow. Continue TPN. Chest x-ray today shows no significant progression and no obvious significant effusions or other infiltrates. Will likely need to change central line next day or 2 and insert PICC line. Change wound VAC dressing tomorrow. Continue Momin catheter secondary to prolonged immobility and need for accurate I&Os in the ICU. Await increased bowel function before allowing clear liquid diet. Hopefully discontinue the nasogastric tube in the next 24-48 hours if output becomes less bilious. This may help with respiratory status as well. Continue SCDs and Lovenox for DVT prophylaxis. I discussed all the above with the patient in detail with the nursing staff at the bedside. All questions were answered to his satisfaction, and he voiced understanding. Orders were written. Quality VTE Deep Vein Thrombosis/Pulmonary Embolism Present on Admission: No
[2018-03-28] MEDS: FLUCONAZOLE 400 MG/200 ML PIGGYBACK 100 MG IV (14:08)
--- NOTE | 2018-03-28 14:13 | P.PN_ITS ---
Subjective Interval history: Patient awake and alert sitting comfortably in the bed. Oriented x3. Voiced remains quite weak and soft. Conversation is barely audible but he formulate words appropriately. 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 Wishes to have something to drink orally. Asking when the nasogastric tube can be removed. Denies shortness of breath. Exam Vital Signs (past 8 hours): Vital Signs - 8 hr 3 03/28/18 06:10 03/28/18 08:00 03/28/18 08:30 Temperature 99.8 F H 98.6 F Pulse Rate 121 H 112 H Respiratory Rate 29 H 23 Blood Pressure 117/73 116/70 Pulse Oximetry 96 95 96 3 03/28/18 10:00 03/28/18 12:00 03/28/18 12:39 Temperature 99.1 F Pulse Rate 113 H 113 H Respiratory Rate 27 H 18 Blood Pressure 118/75 114/73 Pulse Oximetry 96 96 94 Temperature 99.1 F Temperature 98.6 F Temperature 99.8 F Pulse Rate 113 Pulse Rate 113 Pulse Rate 112 Pulse Rate 121 Respiratory Rate 18 Respiratory Rate 27 Respiratory Rate 23 Respiratory Rate 29 Blood Pressure 114/73 Blood Pressure 118/75 Blood Pressure 116/70 Blood Pressure 117/73 Pulse Oximetry 94 Pulse Oximetry 96 Pulse Oximetry 96 Pulse Oximetry 96 Pulse Oximetry 95 Pulse Oximetry 96 Oxygen Delivery Method Room Air Oxygen Delivery Method Room Air Oxygen Delivery Method Nasal Cannula Oxygen Delivery Method Nasal Cannula Oxygen Flow Rate 1 Narrative Exam Narrative: Sclera nonicteric Copious secretions without wheezes. Very poor cough effort due to weakness. Still requiring assistance with oral suctioning. Remains tachycardic in sinus rhythm otherwise Blood pressure normal. Patient maintaining saturations on room air current L&I. Nasogastric tube output is only approximately 150 cc per shift but is very dark bilious in nature. Isacc-Lopez tube output is serous only and diminishing daily in volume Wound VAC is collecting scant fluid only Urine output is clear and copious. Patient is spontaneously diuresing. Abdomen is soft and nondistended. He is appropriately tender to palpation without guarding or rebound. Ileostomy is pink and viable. Mildly edematous. Minimal amount of air in the appliance but no stool as yet. Skin is without erythema. He does have a diffuse mildly erythematous rash in the inguinal regions bilaterally and extending along the back. He denies pruritus. No bulla or hives. Extremities are perfused. Moves all extremities appropriately. Plus one edema bilateral ankles remains stable. Objective Labs Result Diagrams: 03/27/18 21:15 03/27/18 05:15 Labs: Laboratory Results - last 24 hr 03/27/18 21:15 Hgb 10.7 L Hct 32.0 L Assessment & Plan Plan: Plan: 43-year-old male now postoperative day 5 from subtotal colectomy for perforated toxic megacolon secondary to ulcerative colitis extubated yesterday and doing well. However, he is still having difficulties mobilizing secretions. He does have some residual pulmonary edema but no obvious pneumonia. Consult Respiratory therapy for nebulizer treatment and nasotracheal suctioning. Consult physical therapy for mobilization. I suspect he will require long-term rehabilitation given his overall severe protein malnutrition and weakness. Sepsis is resolving but we will continue the antibiotics as ordered for total of at least 10 days of therapy. 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 Check laboratory studies tomorrow. Continue TPN. Chest x-ray today shows no significant progression and no obvious significant effusions or other infiltrates. Will likely need to change central line next day or 2 and insert PICC line. Change wound VAC dressing tomorrow. Continue Momin catheter secondary to prolonged immobility and need for accurate I&Os in the ICU. Await increased bowel function before allowing clear liquid diet. Hopefully discontinue the nasogastric tube in the next 24-48 hours if output becomes less bilious. This may help with respiratory status as well. Continue SCDs and Lovenox for DVT prophylaxis. I discussed all the above with the patient in detail with the nursing staff at the bedside. All questions were answered to his satisfaction, and he voiced understanding. Orders were written. Quality VTE Deep Vein Thrombosis/Pulmonary Embolism Present on Admission: No
[2018-03-28] MEDS: MORPHINE PCA 30 MG/30 ML PCA.VIAL IV ×2 (14:28→21:39)
--- NOTE | 2018-03-28 14:30 | PC.NURSE ---
oropharnyx suctioning done for moderate amount thick secretions. pt taking ice chips and using incentive spirometer when encouraged. sinus tach, HR 110's and RR 28-34; Dr. Levin aware.
--- NOTE | 2018-03-28 15:29 | PC.NURSE ---
ng output 100ml this day shift
--- NOTE | 2018-03-28 17:28 | PT.IIE ---
Physical Therapy Inpatient M1 PT/OT-IP Prior Functional Status Start: 03/28/18 17:17 Freq: NEEDED Status: Active Protocol: Document 03/28/18 17:17 AB (Rec: 03/28/18 17:27 AB [id number]) Medical Review Prior Functional Status Medical History Reviewed Yes Diet/Fluid Consistency NPO Communication faint voice Mobility and Gait pt stated that he was independent with all mobilities and ambulation without AD Social History Household Members family Living Arrangements House Number of Floors (Floors) Two Floors Number of Stairs To Enter/Railing? no steps to enter coming from back door; pt stays on main level. Home Environment Standard Height Toilet Tub/Shower Home Equipment Shower Seat with Backrest Grab Bars Near Toilet Grab Bars In Shower Employment Status Unemployed Additional Social History Comment pt stated that he lives with his mom and disabled brother. 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 M3 PT-IP Subjective Start: 03/28/18 17:17 Freq: NEEDED Status: Active Protocol: Document 03/28/18 17:17 AB (Rec: 03/28/18 17:27 AB [id number]) Subjective Physical Therapy Visit Type Type Initial Evaluation Visit Start Time 16:40 Visit Stop Time 17:15 Total Visit Minutes 35 Number of AIRPORT MANAGER Visits 0 Physical Therapy Visit Comments Patient Comments pt agreeable to do therapy Therapy Pain Assessment Pain When Pain Assessed At Rest Pain Present Pain Present Denied Pain M4 PT-IP Mobility and Gait Start: 03/28/18 17:17 Freq: NEEDED Status: Active Protocol: Document 03/28/18 17:17 AB (Rec: 03/28/18 17:27 AB [id number]) PT-Bed Mobility Assessment Rolling Level of Assist Moderate Assistance Supine to Sit Supine to Sit Maximum Assistance Bedrails PT-Transfer Assessment Sit to and From Stand Sit to and from Stand Maximum Assistance 2 Person Assistance Use of Upper Extremities Equipment Transfer Assistive Device Gait Belt Front Wheeled Walker Orthotic/Prosthetic Devices or Brace: No Transfers Transfer Destination Chair Transfer Technique Stand Step Pivot Transfer Ability Level of Assist Maximum Assistance 2 Person Assistance Use of Upper Extremities Comments Mobility Comments pt with increase bilateral knee flexion during standing and unable to move RLE forward during transfer and has to be assisted with weight shifting and moving of RLE max A. Gait Assessment Factors Limiting Gait Function Factors Limiting Gait Function Decreased Activity Tolerance Decreased Strength Poor Balance Poor Safety Awareness Comments Gait Comments pt unable to ambulate at this time PT-Balance Assessment Sitting Balance and Reactions Static Sitting Balance Ability Fair Dynamic Sitting Balance Ability Poor Standing Balance and Reactions Static Standing Balance Ability Poor Dynamic Standing Balance Ability Poor M5 PT-IP Objective Assessments Start: 03/28/18 17:17 Freq: NEEDED Status: Active Protocol: Document 03/28/18 17:17 AB (Rec: 03/28/18 17:27 AB [id number]) Orientation Orientation/Cognition Level of Alertness Alert Orientation Name Situation Strength Lower Extremity Strength Assessment Bilaterally Impaired Hip 3+/5 Knee 3/5 Ankle 3+/5 M6 PT-IP Treatment Start: 03/28/18 17:17 Freq: NEEDED Status: Active Protocol: Document 03/28/18 17:17 AB (Rec: 03/28/18 17:27 AB [id number]) Physical Therapy Treatment Education Post-Op Education Safety M7 PT-IP Assessment and Plan Start: 03/28/18 17:17 Freq: NEEDED Status: Active Protocol: Document 03/28/18 17:17 AB (Rec: 03/28/18 17:27 AB [id number]) PT Summary Assessment and Plan Potential Rehabilitation Potential Fair Status of Condition at Evaluation Evolving Summary Impairments Pain ROM Strength Balance Sensation Cognition Bed Mobility Transfers Gait Activity Tolerance Assessment Summary pt requiring 2 person assist with transfers and unable to ambulate at this time. pt with decrease activity tolerance affecting mobility. pt will require SNF rehab to improve strength and mobility prior to d/c home. Goals Bed Mobility Goal Standby Assistance Transfer Goal Standby Assistance Gait Goal Standby Assistance Frequency of Treatment Frequency Of Treatment Twice a Day Treatment Plan Physical Therapy Treatment Plan Bed Mobility Training Transfer Training Gait Training Therapeutic Exercise Balance Retraining Discharge Planning Neuromuscular Re-ed Recommendations To Nursing Amount of Assist Needed 2 Person Assist Discharge Recommendations PT Discharge Recommendations SNF Rehab
[2018-03-28] MEDS: POTASSIUM CHLORIDE IV (17:33)
[2018-03-28] MEDS: LYTES IV (17:33)
[2018-03-28] MEDS: DEXT IV (17:33)
[2018-03-28] MEDS: [UNRECOGNIZED DRUG - OTHER] IV (17:33)
[2018-03-28] MEDS: CALCIUM IV (17:33)
[2018-03-28] MEDS: FAT EMULSIONS 50 GM/250 ML EMULSION IV (17:33)
[2018-03-28] MEDS: HYDROCORTISONE 1% CREAM 28 GM 1 APPLIC TOP (17:39)
[2018-03-28] MEDS: ENOXAPARIN 40 MG/0.4 ML SYRINGE SUBCUT (17:39)
[2018-03-29] VITALS (12 sets, daily range): BP systolic 111–172; BP diastolic 64–77; PULSE 110–121; RESP 15–22; TEMP 35.9–37.4; O2SAT 93–98
[2018-03-29] MEDS: SODIUM CHLORIDE 0.9% 500 ML 21 ML IV (00:14)
[2018-03-29] MEDS: MORPHINE PCA 30 MG/30 ML PCA.VIAL IV ×4 (00:20→22:04)
[2018-03-29] MEDS: CLINDAMYCIN 900 MG/50 ML PIGGYBACK 50 MG IV ×3 (01:24→17:17)
--- NOTE | 2018-03-29 05:14 | PC.NURSE ---
Wound Vac began beeping low suction, about 0300, a wrinkle/bubble was noted where part of stoma wafer was under vac and a piece of transparent dressing applied to seal it with no resolve. Involved 3 other RN's to problem solve through all of this and then it began beeping occluded, again 3 plus myself tried to problem solve after hitting reset for 1/2 hour. Finally turned off about 0440. No drainage noted in tubing all night, wound margins pink. Will wait for MD to change dressing as per plan this am.
[2018-03-29 05:46] LABS: Add Manual Diff / Slide Review NO; Basophils Percent Auto 0.1 % (0-2); Eosinophils Percent Auto 0.8 % (2-4); Hematocrit 30.4 % (41-53); Hemoglobin 10.2 g/dL (13.5-17.5); Lymphocytes Percent Auto 5.8 % (25-40); Mean Corpuscular HGB Conc 33.4 % (30-36); Mean Corpuscular Hemoglobin 29.2 PG (26-34); Mean Corpuscular Volume 87.3 fL (80-100); Monocytes Percent Auto 2.8 % (3-14); Neutrophils Absolute Auto 10500 /uL (3000-5900); Neutrophils Percent Auto 90.5 % (50-75); Platelet Count 185 X10^3/uL (150-400); Red Blood Cell Count 3.49 X10^6/uL (4.5-5.9); Red Cell Distribution Width 16.3 % (11.6-14.8); White Blood Cell Count 11.6 X10^3/uL (4.5-11.0)
[2018-03-29] MEDS: GENTAMICIN 120 MG in SODIUM CHLORIDE 0.9% 100 ML 103 ML IV ×2 (06:07→18:18)
[2018-03-29 07:03] LABS: BUN Creatinine Ratio 22.5 (6-22); Estimated Glomerular Filt Rate > 60.0 mL/min (>60); Glucose 109 mg/dL (70-100); HEMOLYSIS < 15 (0-50); Potassium 4.2 mmol/L (3.4-5.1); Sodium 128 mmol/L (137-145)
--- NOTE | 2018-03-29 09:07 | PC.NURSE ---
pt turned to left side. independent with incentive spirometer use. voice is stronger and clear. back rash worse- increased in redness, botchy and more on abdomen. pt denies puritus at this time. pt does ankle pumps when encouraged
[2018-03-29] MEDS: HYDROCORTISONE 1% CREAM 28 GM 1 APPLIC TOP ×2 (09:33→20:39)
[2018-03-29] MEDS: SODIUM CHLORIDE 0.9% FLUSH 10 ML IV ×3 (09:34→20:37)
[2018-03-29] MEDS: PANTOPRAZOLE 40 MG VIAL IV (09:34)
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
[2018-03-29] MEDS: levoFLOXacin 750 MG/150 ML PIGGYBACK 100 MG IV (11:10)
--- NOTE | 2018-03-29 11:10 | PM.PN.1 ---
Subjective Interval history: Patient awake and alert sitting comfortably in the bed. Oriented x3. Voice remains weak but improving.Pain controlled on morphine [employer]. Wishes to have something to drink orally. Asking again when the nasogastric tube can be removed. Denies shortness of breath. Exam Vital Signs (past 8 hours): Vital Signs - 8 hr 03/29/18 04:12 03/29/18 06:00 03/29/18 09:00 Temperature 96.6 F L 98.3 F Pulse Rate 119 H 118 H Respiratory Rate 21 22 Blood Pressure 120/77 119/76 Pulse Oximetry 94 94 97 Temperature 98.3 F Temperature 96.6 F Pulse Rate 118 Pulse Rate 119 Respiratory Rate 22 Respiratory Rate 21 Blood Pressure 119/76 Blood Pressure 120/77 Pulse Oximetry 97 Pulse Oximetry 97 Pulse Oximetry 94 Pulse Oximetry 94 Oxygen Delivery Method Room Air Oxygen Delivery Method Room Air Oxygen Delivery Method Room Air Narrative Exam Narrative: Patient seen and examined with the attending nursing staff today. Patient has been afebrile now for 24 hr. Remains tachycardic in the 110-120 range. Sinus rhythm otherwise on the monitor. Stable on room air with saturations of 94-97%. Cough effort is much better today but still has copious thick secretions. He is having some difficulty mobilizing them. Nasogastric tube remains in place draining 150 cc roughly per shift of dark green bilious fluid. Ileostomy has minimal air in the appliance but no output otherwise. Isacc-Lopez drains are collecting a minimal amount of serous fluid only ranging from 8-20 cc per shift. Urine output remains copious spontaneously with 2-4 cc per kg per hour average Wound VAC is collecting minimal serosanguineous fluid. Sclera are nonicteric Chest clear but he does have some coarse rhonchi that clear with cough. Bases are diminished bilaterally. No crackles or wheezes. Abdomen is soft and minimally distended. He is not particularly tympanitic. Appropriately tender to palpation. Ileostomy is pink and viable. I personally change the wound VAC at the bedside today. Patient tolerated this well. Wound is granulating nicely. There is a small amount of necrotic fat tissue that is somewhat liquified and purulent. Wound was irrigated to clear the drainage. Fascia remains intact. Skin edges are viable without erythema. Wound VAC device replaced without difficulty and holding suction well at 125 mm of mercury. Erythematous rash remained stable and otherwise unchanged. Extremities show no clubbing or cyanosis. He has warm and well-perfused. Edema is unchanged in the ankles and pretibial regions bilaterally. However the hand edema in the upper extremities has resolved. He moves all extremities appropriately but remains weak overall. Objective Labs Result Diagrams: 03/29/18 05:05 03/29/18 05:05 Labs: Laboratory Results - last 24 hr 03/29/18 03/29/18 05:05 05:05 WBC 11.6 H RBC 3.49 L Hgb 10.2 L Hct 30.4 L MCV 87.3 MCH 29.2 MCHC 33.4 RDW 16.3 H Plt Count 185 Neut % (Auto) 90.5 H Lymph % (Auto) 5.8 L Dickey % (Auto) 2.8 L Eos % (Auto) 0.8 L Baso % (Auto) 0.1 Neut # (Auto) 05778 H Sodium 128 L Potassium 4.2 Chloride 93.0 L Carbon Dioxide 28.0 BUN 9.0 Creatinine 0.40 L Estimated GFR > 60.0 BUN/Creatinine Ratio 22.5 H Glucose 109 H Calcium 7.0 L Assessment & Plan Plan: Plan: 43-year-old male now 6 days postop from subtotal colectomy for perforated toxic megacolon secondary to ulcerative colitis who continues to improve slowly on a daily basis. His sepsis appears to have resolved but I remain concerned about his tachycardia. His volume status appears adequate. Hemoglobin is stable as above. I doubt intra-abdominal abscess given the normal white blood cell count and no fever. However, he may require CT scan of the abdomen and pelvis with oral and IV contrast in the next day or 2 if his tachycardia does not resolve. We will continue his TPN and add additional sodium chloride. Nasogastric tube is not ready to be discontinued as yet due to bilious output. Still awaiting bowel function. May attempt a trial of NG tube clamping tomorrow and possibly discontinue the tube the following day if he tolerates it well. Once he has restarted oral intake we will slowly wean him from the TPN. Dietary consult will be obtained at that time as he will require significant nutritional supplementation. Continue physical therapy and occupational therapy for rehabilitation. I personally change the wound VAC device today. Wound continues to heal. He will require the wound VAC for some time. I discontinued the Isacc-Lopez drains today. Again he tolerated all this well at the bedside. Continue Momin catheter due to prolonged immobility and ongoing need for strict I&Os. We may need to restart normal saline infusion at a low rate to ensure he is receiving adequate fluid status. Continue intravenous antibiotics and Diflucan for a total of 10 days. DVT prophylaxis with Lovenox and SCDs. Discharge planning consult has been initiated as he is likely to require longterm facility or home health for wound care, physical therapy, and occupational therapy. I again encouraged the patient to pursue aggressive pulmonary toilet with coughing, deep breathing, incentive spirometry, and ambulation with assistance. All questions were answered to his satisfaction, and he voiced understanding. Orders were written. Quality VTE Deep Vein Thrombosis/Pulmonary Embolism Present on Admission: No
--- NOTE | 2018-03-29 11:34 | PT.IPTN ---
Current Diagnoses Sepsis, unspecified organism (03/22/18) Hypocalcemia (03/22/18) Hypokalemia (03/22/18) Chronic pulmonary edema (03/22/18) Acute postprocedural respiratory failure (03/22/18) Ulcerative colitis, unspecified, without complications (03/22/18) Perforation of intestine (nontraumatic) (03/22/18) Severe sepsis with septic shock (03/22/18) Physical Therapy Treatment Note M2 PT-IP Current Condition Start: 03/28/18 17:17 Freq: NEEDED Status: Active Protocol: Activity Type Activity Date Activity User E-Sign Co-Sign Detail Recorded Client Recorded Date Recorded By Document 03/29/18 11:00 [facility] [id number] 03/29/18 11:33 [facility] 03/29/18 11:00 Physical Therapy Current Condition [Current Condition] -Evaluation Date 03/28/18 -Treatment Diagnosis post-op colectomy for perforated bowel -Onset Date 03/22/18 [Post Operative Precautions] -Abdominal Surgery Precautions Log Roll Lifting Restrictions Gait Belt above Incisional Area -Other Precautions contact precautions: MRSA on nares M3 PT-IP Subjective Start: 03/28/18 17:17 Freq: NEEDED Status: Active Protocol: Activity Type Activity Date Activity User E-Sign Co-Sign Detail Recorded Client Recorded Date Recorded By Document 03/29/18 11:00 [facility] [id number] 03/29/18 11:33 [facility] 03/29/18 11:00 Subjective [Physical Therapy Visit Type] -Type Treatment Note -Visit Start Time 10:35 -Visit Stop Time 11:00 -Total Visit Minutes 25 -Number of AZURE PRINCIPAL SOLUTION SPECIALIST Visits 0 [Physical Therapy Visit Comments] -Patient Comments Pt wants to attempt to ambulate M4 PT-IP Mobility and Gait Start: 03/28/18 17:17 Freq: NEEDED Status: Active Protocol: Activity Type Activity Date Activity User E-Sign Co-Sign Detail Recorded Client Recorded Date Recorded By Document 03/29/18 11:00 [facility] [email or web address] 03/29/18 11:33 [facility] 03/29/18 11:00 PT-Bed Mobility Assessment [Rolling] -Level of Assist Moderate Assistance [Supine to Sit] -Supine to Sit Moderate Assistance Bedrails [Scooting] -Scooting to Edge of Bed Contact Guard Assistance PT-Transfer Assessment [Sit to and From Stand] -Sit to and from Stand Moderate Assistance 1 Person Assistance Use of Upper Extremities [Equipment] -Transfer Assistive Device Gait Belt Front Wheeled Walker [Transfers] -Transfer Destination Chair -Transfer Technique Stand Step Pivot [Transfer Ability] -Level of Assist Moderate Assistance 2 Person Assistance Use of Upper Extremities [Comments] -Mobility Comments Pt with lean to the R with fatigue, required increased cuing with fatigue. Shuffling steps . Gait Assessment [Factors Limiting Gait Function] -Factors Limiting Gait Function Decreased Activity Tolerance Decreased Strength Poor Balance Poor Safety Awareness [Comments] -Gait Comments pt unable to ambulate at this time PT-Balance Assessment [Sitting Balance and Reactions] -Static Sitting Balance Ability Good M5 PT-IP Objective Assessments Start: 03/28/18 17:17 Freq: NEEDED Status: Active Protocol: Activity Type Activity Date Activity User E-Sign Co-Sign Detail Recorded Client Recorded Date Recorded By Document 03/28/18 17:17 AB [id number] 03/28/18 17:27 AB 03/28/18 17:17 Orientation [Orientation/Cognition] -Level of Alertness Alert -Orientation Name Situation Strength [Lower Extremity Strength] -Assessment Bilaterally Impaired -Hip 3+/5 -Knee 3/5 -Ankle 3+/5 M6 PT-IP Treatment Start: 03/28/18 17:17 Freq: NEEDED Status: Active Protocol: Activity Type Activity Date Activity User E-Sign Co-Sign Detail Recorded Client Recorded Date Recorded By Document 03/28/18 17:17 AB [id number] 03/28/18 17:27 AB 03/28/18 17:17 Physical Therapy Treatment [Education] -Post-Op Education Safety M7 PT-IP Assessment and Plan Start: 03/28/18 17:17 Freq: NEEDED Status: Active Protocol: Activity Type Activity Date Activity User E-Sign Co-Sign Detail Recorded Client Recorded Date Recorded By Document 03/29/18 11:00 [facility] [email or web address] 03/29/18 11:33 [facility] 03/29/18 11:00 PT Summary Assessment and Plan [Summary] -Assessment Summary Pt tolerated mobility better this session, and was motivated to ambulate. Pt fatigues quickly, and was unable to perform any functional steps forward, but is making progress. [Frequency of Treatment] -Frequency Of Treatment Twice a Day [Treatment Plan] -Other Recommendations and Next prog. toward Treatment Focus forward functional gait , review log roll. Prog. as tolerated. [Recommendations To Nursing] -Amount of Assist Needed 2 Person Assist [Discharge Recommendations] -PT Discharge Recommendations SNF Rehab
--- NOTE | 2018-03-29 12:00 | CM.DPC ---
DCP Ongoing Assessment: Case reviewed, EMR reviewed and met with patient. Introduced self as DCP, explained role and goals of DCP and as pt advocate. Pt verbalized understanding; she is fully alert and oriented, asked appropriate questions and had approp responses. She understands that d/c orders have been written for her and that she has yet to work with PT on mobilization. Has not yet called her family as unsure about pickup time. SANCHEZ form explained to pt and she signed this; a copy given to her. Explained she is in OBS status, and requirements that would need to be met (IP status, 3 night stay) before she could be referred to a SNF or Rehab facility. She understood, and had questions about her Chcf Insurance through [employer]. She was advised to speak w/Jordan about this on Friday (or have her daughter research for her), as they likely will not have staff avail on the weekend. Also told that she might have to go to a facility of Jordan???s choice vs her own choice; she or family member needs to research this. She states she cannot afford to private pay for a facility. Talked about CG in the home, her current home situation where she feels CG is not adequate for her current needs. Her Kae Janine works full time staff interpreter in [employer], and Janine???s Tuan works in the basement office all day and is not available to help her out much. Discussed CG options in the home, as she currently has [facility] come in 2 hrs/wk on Friday only. Suggested she may have to increase those hours, but also gave her an CG list with disclaimer that those listed have not been approved or vetted by ; she verbalized understanding. Also gave her a Senior Resource Booklet as we discussed possible haircut/beauticians that might come into the home; referred to [facility] for ideas on this. Pt states she has [employer] and carries a cell phone with her in the home for safety purposes. She also has DME of adjustable bed, FWW, acapella device, nebulizer, and a lift recliner. VERIFIED that kae Mehta Brown???s cell # is and [facility] shared this info with nurse Kylee and PT Kym. Other health care agencies used: [facility], as above. Contacted: PT Kym and discussed d/c plan. Pt has not been OOB yet and Kym to work with her. Nurse Kylee stated pt may need to go home with oxygen, as she desatted in the night, was on 1L per NC until this AM, and desatted again this morning after having large pill get stuck in her throat. Kym and Kylee to work on this, get RT eval if needed. Contacted: daughter Janine Duff ([phone]) and explained current status as above, that d/c orders have been written, and PT to make recommendation to MD after working with patient. Unsure of time of d/c but she will be contacted by nursing. Also explained the SANCHEZ form to her and OBS status, that facility stay would only be private pay, as described above. Asked her to research patient???s Chcf Care Insurance through [employer] on Friday when their offices would be open. Told her I gave pt the [facility] CG list and they will need to f/u, as pt will need more assist after this hospitalization until she gets her strength up. She verbalized understanding. Plan: OBS status, one night stay thus far with admit on 03/27 at 0147. Discharge to home in care of family. No other services needed. Family/pt to research home CG options. Patti Aguero RN
--- NOTE | 2018-03-29 12:54 | CM.DPC ---
[facility] Ongoing Assessment: Case reviewed, EMR reviewed and met with patient who is sitting up in bedside chair, A&O, although encumbered by TPN running, wound vac, NG tube, and IV fluids. He is minimally conversant, and r/t the NG tube, it is uncomfortable for him to talk, but he does answer questions appropriately and asks pertinent questions. He does not have sustained eye contact, appears somewhat depressed, but this improves over the course of the interview. We discussed his financial status and he is aware that Admitting (Laura) had given his mother information on [employer] insurance; he is unsure if she has done anything with this thus far. LAP to call mother Chiquita Morales (Gail) as followup. (Did not reach her -- Message left on her phone which pt verified as .) Pt is concerned about his nutritional status once he gets home, and if his mother will be informed of how to increase his weight and enhance his diet. DCP stated these concerns would be addressed once he is off NG tube and MD will give orders for diet advancement, etc. Explained he is a ways out from d/c yet, and he verbalized understanding. Contacted: Via email -- Laura Pino, re: if she has heard anything further on insurance for this patient, or heard from his mother. Contacted: [facility] was contacted by Dr. Levin who stated pt is a ways from being discharged, but once d/c he will likely need a SNF (not likely r/t no insurance), or go home with HH and PT/OT/RN and will have wound vac that may need a change q3 days, may go home on TPN. Plan: D/c either to SNF (if some insurance is secured and find a facility willing to accept pt); OR to d/c to home with HH services (PT/OT/RN) on wound vac, poss TPN, PICC line, wound dssg changes. Patti Aguero RN
[2018-03-29] MEDS: FLUCONAZOLE 400 MG/200 ML PIGGYBACK 100 MG IV (14:36)
--- NOTE | 2018-03-29 15:56 | PT.IPTN ---
Current Diagnoses Sepsis, unspecified organism (03/22/18) Hypocalcemia (03/22/18) Hypokalemia (03/22/18) Chronic pulmonary edema (03/22/18) Acute postprocedural respiratory failure (03/22/18) Ulcerative colitis, unspecified, without complications (03/22/18) Perforation of intestine (nontraumatic) (03/22/18) Severe sepsis with septic shock (03/22/18) Physical Therapy Treatment Note M2 PT-IP Current Condition Start: 03/28/18 17:17 Freq: NEEDED Status: Active Protocol: Activity Type Activity Date Activity User E-Sign Co-Sign Detail Recorded Client Recorded Date Recorded By Document 03/29/18 15:25 [facility] [id number] 03/29/18 15:54 [facility] 03/29/18 15:25 Physical Therapy Current Condition [Current Condition] -Evaluation Date 03/28/18 -Treatment Diagnosis post-op colectomy for perforated bowel -Onset Date 03/22/18 [Post Operative Precautions] -Abdominal Surgery Precautions Log Roll Lifting Restrictions Gait Belt above Incisional Area -Other Precautions contact precautions: MRSA on nares M3 PT-IP Subjective Start: 03/28/18 17:17 Freq: NEEDED Status: Active Protocol: Activity Type Activity Date Activity User E-Sign Co-Sign Detail Recorded Client Recorded Date Recorded By Document 03/29/18 15:25 [facility] [id number] 03/29/18 15:54 [facility] 03/29/18 15:25 Subjective [Physical Therapy Visit Type] -Type Treatment Note -Visit Start Time 15:00 -Visit Stop Time 15:25 -Total Visit Minutes 25 -Notes Pt in bed on arrival. RN assisted with line managment (IV, wound-vac) -Number of ASSET AVAILABILITY LEADER Visits 0 [Physical Therapy Visit Comments] -Patient Comments Pt wants to try to walk into the hallway. M4 PT-IP Mobility and Gait Start: 03/28/18 17:17 Freq: NEEDED Status: Active Protocol: Activity Type Activity Date Activity User E-Sign Co-Sign Detail Recorded Client Recorded Date Recorded By Document 03/29/18 15:25 [facility] [id number] 03/29/18 15:54 [facility] 03/29/18 15:25 PT-Bed Mobility Assessment [Rolling] -Type of Rolling Log Rolling -Level of Assist Moderate Assistance [Supine to Sit] -Supine to Sit Moderate Assistance Bedrails [Scooting] -Scooting to Edge of Bed Contact Guard Assistance PT-Transfer Assessment [Sit to and From Stand] -Sit to and from Stand Moderate Assistance 1 Person Assistance Use of Upper Extremities [Equipment] -Transfer Assistive Device Gait Belt Front Wheeled Walker [Transfers] -Transfer Destination Chair -Transfer Technique Stand Step Pivot [Transfer Ability] -Level of Assist Minimal Assistance 2 Person Assistance Use of Upper Extremities [Comments] -Mobility Comments pt with tendency to have increased forward lean when fatigued. Gait Assessment [Gait] -Gait Assistance Required: Moderate Assistance 2 Person Assist -Distance (Feet) (feet) 50 [Assistive Devices] -Assistive Device Gait Belt Front Wheeled Walker -Orthotic/Prosthetic Devices or Brace: No [Gait Deviations] -General Gait Pattern Decreased Stride Length Decreased Feet Clearance Flexed Trunk Narrow Based Gait Step-to Gait [Factors Limiting Gait Function] -Factors Limiting Gait Function Decreased Activity Tolerance Decreased Strength Pain Poor Balance Poor Safety Awareness [Comments] -Gait Comments Fatigues quickly, requires cuing for safety. PT-Balance Assessment [Sitting Balance and Reactions] -Static Sitting Balance Ability Good -Dynamic Sitting Balance Ability Good [Standing Balance and Reactions] -Static Standing Balance Ability Poor -Dynamic Standing Balance Ability Poor M5 PT-IP Objective Assessments Start: 03/28/18 17:17 Freq: NEEDED Status: Active Protocol: Activity Type Activity Date Activity User E-Sign Co-Sign Detail Recorded Client Recorded Date Recorded By Document 03/28/18 17:17 AB [id number] 03/28/18 17:27 AB 03/28/18 17:17 Orientation [Orientation/Cognition] -Level of Alertness Alert -Orientation Name Situation Strength [Lower Extremity Strength] -Assessment Bilaterally Impaired -Hip 3+/5 -Knee 3/5 -Ankle 3+/5 M6 PT-IP Treatment Start: 03/28/18 17:17 Freq: NEEDED Status: Active Protocol: Activity Type Activity Date Activity User E-Sign Co-Sign Detail Recorded Client Recorded Date Recorded By Document 03/28/18 17:17 AB [id number] 03/28/18 17:27 AB 03/28/18 17:17 Physical Therapy Treatment [Education] -Post-Op Education Safety M7 PT-IP Assessment and Plan Start: 03/28/18 17:17 Freq: NEEDED Status: Active Protocol: Activity Type Activity Date Activity User E-Sign Co-Sign Detail Recorded Client Recorded Date Recorded By Document 03/29/18 15:25 [facility] [id number] 03/29/18 15:54 [facility] 03/29/18 15:25 PT Summary Assessment and Plan [Potential] -Rehabilitation Potential Good [Summary] -Impairments Pain ROM Strength Balance Sensation Cognition Bed Mobility Transfers Gait Activity Tolerance -Assessment Summary POD #6. Pt tolerated forward gait this session for the first time post- operative. Pt fatigues quickly, but is highly motivated to improve. Pt requires assist with all mobility and is not safe to return home at this point. [Goals] -Bed Mobility Goal Standby Assistance -Transfer Goal Standby Assistance -Gait Goal Standby Assistance [Frequency of Treatment] -Frequency Of Treatment Twice a Day [Treatment Plan] -Other Recommendations and Next prog. gait with Treatment Focus FWW, log roll. Monitor HR [Recommendations To Nursing] -Amount of Assist Needed 2 Person Assist [Discharge Recommendations] -PT Discharge Recommendations SNF Rehab
[2018-03-29] MEDS: CALCIUM IV (17:18)
[2018-03-29] MEDS: [UNRECOGNIZED DRUG - OTHER] IV (17:18)
[2018-03-29] MEDS: FAT EMULSIONS 50 GM/250 ML EMULSION IV (17:18)
[2018-03-29] MEDS: SODIUM CHLORIDE IV (17:18)
[2018-03-29] MEDS: LYTES IV (17:18)
[2018-03-29] MEDS: DEXT IV (17:18)
[2018-03-29] MEDS: ENOXAPARIN 40 MG/0.4 ML SYRINGE SUBCUT (17:26)
[2018-03-30] VITALS (13 sets, daily range): BP systolic 103–119; BP diastolic 62–70; PULSE 98–109; RESP 15–21; TEMP 36.1–37.1; O2SAT 94–98
--- NOTE | 2018-03-30 | DI.RAD.S_ITS ---
PROCEDURE: XR ABDOMEN 1V INDICATIONS: Abdominal distention status post colectomy TECHNIQUE: One view of the abdomen acquired. COMPARISON: [facility], CR, XR CHEST 1V, 03/28/2018, 6:00. [facility], CR, XR CHEST 1V, 03/26/2018, 6:02. FINDINGS: Surgical changes and devices: Scattered surgical clips are seen. An enteric tube is partially visualized the tip projecting in the stomach. Bowel: No definite bowel obstruction is seen. There is a incidentally noted right-sided ostomy. There is residual oral contrast material within the right lower quadrant bowel loops. Soft tissues: No suspicious abdominal calcifications. Visualized solid organ contours appear normal in size. Bones: No suspicious bony lesions. IMPRESSION: No definite bowel obstruction or transition point seen. Right ostomy and residual oral contrast material seen within right lower quadrant bowel loops. Dictated by: Sameer Rush M.D. on 03/30/2018 at 11:04 Approved by: Sameer Rush M.D. on 03/30/2018 at 11:05
[2018-03-30] MEDS: CLINDAMYCIN 900 MG/50 ML PIGGYBACK 50 MG IV ×2 (01:00→09:07)
[2018-03-30] MEDS: GENTAMICIN 120 MG in SODIUM CHLORIDE 0.9% 100 ML 103 ML IV ×2 (05:56→18:54)
[2018-03-30] MEDS: MORPHINE PCA 30 MG/30 ML PCA.VIAL IV ×2 (06:00→11:20)
[2018-03-30 06:35] LABS: Gentamicin Trough 0.8 ug/mL (0.0-2.0)
[2018-03-30 08:53] LABS: Gentamicin Peak 6.3 ug/mL (5.0-8.0)
[2018-03-30] MEDS: SODIUM CHLORIDE 0.9% 500 ML 21 ML IV (09:07)
[2018-03-30] MEDS: PANTOPRAZOLE 40 MG VIAL IV (09:09)
[2018-03-30] MEDS: SODIUM CHLORIDE 0.9% FLUSH 10 ML IV (09:09)
--- NOTE | 2018-03-30 10:16 | PM.PN.1 ---
Subjective Interval history: Patient awake and alert sitting comfortably in the bed. Oriented x3. 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 Wishes to have something to drink orally. Asking again when the nasogastric tube can be removed. Denies shortness of breath. Ambulating well with assistance. Wishes to shower today. Exam Vital Signs (past 8 hours): Vital Signs - 8 hr 03/30/18 03:00 03/30/18 04:00 03/30/18 05:11 Temperature 98.0 F 98 F Pulse Rate 109 H 109 H Respiratory Rate 16 15 Blood Pressure 119/70 119/70 Pulse Oximetry 97 94 97 03/30/18 08:24 03/30/18 09:00 03/30/18 09:27 Temperature 98.7 F Pulse Rate 106 H Respiratory Rate 16 Blood Pressure 116/62 Pulse Oximetry 96 94 96 Temperature 98.7 F Temperature 98 F Temperature 98.0 F Pulse Rate 106 Pulse Rate 109 Pulse Rate 109 Respiratory Rate 16 Respiratory Rate 15 Respiratory Rate 16 Blood Pressure 116/62 Blood Pressure 119/70 Blood Pressure 119/70 Pulse Oximetry 96 Pulse Oximetry 94 Pulse Oximetry 96 Pulse Oximetry 97 Pulse Oximetry 94 Pulse Oximetry 97 Oxygen Delivery Method Room Air Oxygen Delivery Method Room Air Oxygen Delivery Method Room Air Oxygen Delivery Method Room Air Oxygen Flow Rate 0 Oxygen Flow Rate 0 Narrative Exam Narrative: Remains afebrile and otherwise with normal blood pressure. Slightly tachycardic still but normalizing. Urine output remains copious with spontaneous diuresis Nasogastric tube remains dark bilious with approximately 100-150 cc per shift. Last shift was 130 cc. No ileostomy output as yet. Isacc-Lopez drains have been removed. Sites are healing nicely. Momin catheter is draining clear yellow urine. Much better cough effort today. No crackles Sinus rhythm Abdomen is soft but distended with no obvious masses. Ileostomy is pink and viable. Wound VAC remains in place. Skin edges were viable. Erythematous rash throughout the entire trunk and inguinal region remains unchanged. He denies itching. No hives or bulla. Extremities show no clubbing or cyanosis. Warm and perfused bilaterally. Edema is slowly resolving at the ankles. Objective Labs Result Diagrams: 03/29/18 05:05 03/29/18 05:05 Labs: Laboratory Results - last 24 hr 03/25/18 03/30/18 03/30/18 13:00 05:50 07:30 Gentamicin Peak 6.3 Gentamicin Trough 0.8 Crossmatch (AHG) See Detail Assessment & Plan Plan: Plan: 43-year-old male who is now 7 day status post subtotal colectomy for perforated toxic megacolon secondary to ulcerative colitis. Overall he continues to improve and is doing well. We will discontinue the Momin. Clamp nasogastric tube and give him a trial. Check abdominal film for bowel pattern. Doubt abscess or other intra-abdominal issues at this point. Signs and symptoms are consistent mostly with postoperative ileus which is not unanticipated given the nature of his disease and surgery. Continue to await bowel function. Hopefully can discontinue the nasogastric tube in the next 24-48 hours. Continue to ambulate aggressively. He may shower today. Continue wound VAC with plan to change in 2 days. Continue TPN and lipids. Place PICC line today and discontinue left subclavian central line since that catheter has been in for 1 week now. Continue intravenous antibiotics for several more days as planned. 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 Substitute Dilaudid SQL SERVER DBA DEVELOPER. Encouraged ongoing aggressive pulmonary toilet including incentive spirometry. Check labs tomorrow. I discussed all the above with the patient and the attending nurse in detail. All questions were answered to his satisfaction, and he voiced understanding. Orders were written. Quality VTE Deep Vein Thrombosis/Pulmonary Embolism Present on Admission: No
--- NOTE | 2018-03-30 10:22 | P.PN_ITS ---
Subjective Interval history: Patient awake and alert sitting comfortably in the bed. Oriented x3. 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 Wishes to have something to drink orally. Asking again when the nasogastric tube can be removed. Denies shortness of breath. Ambulating well with assistance. Wishes to shower today. Exam Vital Signs (past 8 hours): Vital Signs - 8 hr 3 03/30/18 03:00 03/30/18 04:00 03/30/18 05:11 Temperature 98.0 F 98 F Pulse Rate 109 H 109 H Respiratory Rate 16 15 Blood Pressure 119/70 119/70 Pulse Oximetry 97 94 97 3 03/30/18 08:24 03/30/18 09:00 03/30/18 09:27 Temperature 98.7 F Pulse Rate 106 H Respiratory Rate 16 Blood Pressure 116/62 Pulse Oximetry 96 94 96 Temperature 98.7 F Temperature 98 F Temperature 98.0 F Pulse Rate 106 Pulse Rate 109 Pulse Rate 109 Respiratory Rate 16 Respiratory Rate 15 Respiratory Rate 16 Blood Pressure 116/62 Blood Pressure 119/70 Blood Pressure 119/70 Pulse Oximetry 96 Pulse Oximetry 94 Pulse Oximetry 96 Pulse Oximetry 97 Pulse Oximetry 94 Pulse Oximetry 97 Oxygen Delivery Method Room Air Oxygen Delivery Method Room Air Oxygen Delivery Method Room Air Oxygen Delivery Method Room Air Oxygen Flow Rate 0 Oxygen Flow Rate 0 Narrative Exam Narrative: Remains afebrile and otherwise with normal blood pressure. Slightly tachycardic still but normalizing. Urine output remains copious with spontaneous diuresis Nasogastric tube remains dark bilious with approximately 100-150 cc per shift. Last shift was 130 cc. No ileostomy output as yet. Isacc-Lopez drains have been removed. Sites are healing nicely. Momin catheter is draining clear yellow urine. Much better cough effort today. No crackles Sinus rhythm Abdomen is soft but distended with no obvious masses. Ileostomy is pink and viable. Wound VAC remains in place. Skin edges were viable. Erythematous rash throughout the entire trunk and inguinal region remains unchanged. He denies itching. No hives or bulla. Extremities show no clubbing or cyanosis. Warm and perfused bilaterally. Edema is slowly resolving at the ankles. Objective Labs Result Diagrams: 03/29/18 05:05 03/29/18 05:05 Labs: Laboratory Results - last 24 hr 03/25/18 03/30/18 03/30/18 13:00 05:50 07:30 Gentamicin Peak 6.3 Gentamicin Trough 0.8 Crossmatch (AHG) See Detail Assessment & Plan Plan: Plan: 43-year-old male who is now 7 day status post subtotal colectomy for perforated toxic megacolon secondary to ulcerative colitis. Overall he continues to improve and is doing well. We will discontinue the Momin. Clamp nasogastric tube and give him a trial. Check abdominal film for bowel pattern. Doubt abscess or other intra-abdominal issues at this point. Signs and symptoms are consistent mostly with postoperative ileus which is not unanticipated given the nature of his disease and surgery. Continue to await bowel function. Hopefully can discontinue the nasogastric tube in the next 24-48 hours. Continue to ambulate aggressively. He may shower today. Continue wound VAC with plan to change in 2 days. Continue TPN and lipids. Place PICC line today and discontinue left subclavian central line since that catheter has been in for 1 week now. Continue intravenous antibiotics for several more days as planned. Discontinue morphine EDGE TRIMMER as this may be the source of his rash. Substitute Dilaudid EDGE TRIMMER. Encouraged ongoing aggressive pulmonary toilet including incentive spirometry. Check labs tomorrow. I discussed all the above with the patient and the attending nurse in detail. All questions were answered to his satisfaction, and he voiced understanding. Orders were written. Quality VTE Deep Vein Thrombosis/Pulmonary Embolism Present on Admission: No
[2018-03-30] MEDS: HYDROMORPHONE PCA 6 MG/30 ML PCA.VIAL IV ×3 (11:23→23:53)
[2018-03-30] MEDS: levoFLOXacin 750 MG/150 ML PIGGYBACK 100 MG IV (11:35)
[2018-03-30] MEDS: FLUCONAZOLE 400 MG/200 ML PIGGYBACK 100 MG IV (13:51)
--- NOTE | 2018-03-30 13:54 | PT.IPTN ---
Current Diagnoses Sepsis, unspecified organism (03/22/18) Hypocalcemia (03/22/18) Hypokalemia (03/22/18) Chronic pulmonary edema (03/22/18) Acute postprocedural respiratory failure (03/22/18) Ulcerative colitis, unspecified, without complications (03/22/18) Perforation of intestine (nontraumatic) (03/22/18) Severe sepsis with septic shock (03/22/18) Physical Therapy Treatment Note M2 PT-IP Current Condition Start: 03/28/18 17:17 Freq: NEEDED Status: Active Protocol: Activity Type Activity Date Activity User E-Sign Co-Sign Detail Recorded Client Recorded Date Recorded By Document 03/29/18 15:25 [facility] [id number] 03/29/18 15:54 [facility] 03/29/18 15:25 Physical Therapy Current Condition [Current Condition] -Evaluation Date 03/28/18 -Treatment Diagnosis post-op colectomy for perforated bowel -Onset Date 03/22/18 [Post Operative Precautions] -Abdominal Surgery Precautions Log Roll Lifting Restrictions Gait Belt above Incisional Area -Other Precautions contact precautions: MRSA on nares M3 PT-IP Subjective Start: 03/28/18 17:17 Freq: NEEDED Status: Active Protocol: Activity Type Activity Date Activity User E-Sign Co-Sign Detail Recorded Client Recorded Date Recorded By Document 03/30/18 13:50 RS [id number] 03/30/18 13:53 RS 03/30/18 13:50 Subjective [Physical Therapy Visit Type] -Type Patient Refusal -Visit Start Time 13:40 -Visit Stop Time 13:50 -Total Visit Minutes 0 -Notes no billable time [Physical Therapy Visit Comments] -Patient Comments Pt reports being tired still after walking the unit with nursing earlier today. Would like to keep resting for right now. RN will call PT if pt feels up for mobilizing prior to 4pm, otherwise nursing staff will walk with him this evening and PT to see tomorrow . -Patient/Caregiver Goals get strong enough to be independent Therapy Pain Assessment [Pain] -When Pain Assessed At Rest [Pain Present] -Pain Present Denied Pain
--- NOTE | 2018-03-30 14:31 | PC.NURSE ---
Day Shift Note Up walking in halls with 2 person assist (line management) and FWW. Weak but steady on feet. Showered today without issue. CEDRICK d/c sites x2 open to air. Wound vac in place and at 125 mmHg suction. Ng tube clamped at 1000. Denies nausea/abdominal discomfort. MANAGER SERVICE DESK switched from morphine to Dilaudid - reports this is effective for pain control. Rash remains across entire trunk, denies itchiness/discomfort. Momin catheter discontinued at 1000, voiding via urinal.
[2018-03-30] MEDS: CLINDAMYCIN 900 MG/50 ML PIGGYBACK 103 MG IV (17:09)
[2018-03-30] MEDS: ENOXAPARIN 40 MG/0.4 ML SYRINGE SUBCUT (17:11)
[2018-03-30] MEDS: [UNRECOGNIZED DRUG - OTHER] IV (18:53)
[2018-03-30] MEDS: SODIUM CHLORIDE IV (18:53)
[2018-03-30] MEDS: LYTES IV (18:53)
[2018-03-30] MEDS: DEXT IV (18:53)
[2018-03-30] MEDS: CALCIUM IV (18:53)
[2018-03-30] MEDS: FAT EMULSIONS 50 GM/250 ML EMULSION IV (18:53)
[2018-03-31] VITALS (9 sets, daily range): BP systolic 108–122; BP diastolic 64–75; PULSE 97–106; RESP 14–20; TEMP 36.1–36.8; O2SAT 95–107
[2018-03-31] MEDS: CLINDAMYCIN 900 MG/50 ML PIGGYBACK 103 MG IV (00:55)
[2018-03-31] MEDS: SODIUM CHLORIDE 0.9% FLUSH 10 ML IV (00:55)
[2018-03-31] MEDS: GENTAMICIN 120 MG in SODIUM CHLORIDE 0.9% 100 ML 103 ML IV ×2 (05:53→19:51)
[2018-03-31] MEDS: INSULIN ASPART 100 UNIT/ML INSULN PEN SUBCUT (05:54)
[2018-03-31 05:58] LABS: Calcium 6.8 mg/dL (8.4-10.2); Estimated Glomerular Filt Rate > 60.0 mL/min (>60); Glucose 117 mg/dL (70-100); HEMOLYSIS < 15 (0-50); Phosphorous 4.5 mg/dL (2.5-4.5); Potassium 4.1 mmol/L (3.4-5.1); Sodium 126 mmol/L (137-145)
[2018-03-31 06:01] LABS: Hematocrit 28.3 % (41-53); Hemoglobin 9.5 g/dL (13.5-17.5); Mean Corpuscular HGB Conc 33.4 % (30-36); Mean Corpuscular Volume 86.8 fL (80-100); Platelet Count 201 X10^3/uL (150-400); Red Blood Cell Count 3.26 X10^6/uL (4.5-5.9); Red Cell Distribution Width 16.1 % (11.6-14.8); White Blood Cell Count 11.2 X10^3/uL (4.5-11.0)
[2018-03-31 06:04] LABS: Add Manual Diff / Slide Review YES
[2018-03-31 07:48] LABS: Neutrophils Absolute Manual 10304 /uL (3000-5900); Total Cells Counted 100
[2018-03-31 07:49] LABS: Target Cells 1+
--- NOTE | 2018-03-31 08:34 | DI.RAD.S_ITS ---
PROCEDURE: XR CHEST 1V INDICATIONS: 43 year-old male with ulcerative colitis and recent bowel perforation. TECHNIQUE: One view of the chest was acquired. COMPARISON: [facility], CR, XR CHEST 1V, 03/28/2018, 6:00. [facility], CR, XR CHEST 1V, 03/26/2018, 6:02. [facility], CR, XR CHEST 1V, 03/25/2018, 5:32. FINDINGS: Surgical changes and devices: New right PICC is present, with tip in the mid superior vena cava. Left subclavian central venous catheter and nasogastric tube remain in expected positions. Lungs and pleura: There is persistent retrocardiac air space opacity seen, with internal air bronchograms. There is interval increased hazy opacity in the right mid and lower lung. No pulmonary edema. No pleural effusions or pneumothorax. Mediastinum: Mediastinal contours appear normal. Heart size is normal. Bones and chest wall: No suspicious bony lesions. Overlying soft tissues appear unremarkable. IMPRESSION: 1. New right PICC is present, with tip in expected position. 2. Persistent retrocardiac atelectasis, aspiration, or pneumonia. 3. Interval increased hazy opacities within the right mid and lower lung may represent subsegmental atelectasis, early aspiration or evolving pneumonia. Dictated by: Gautam Strange M.D. on 03/31/2018 at 8:59 Approved by: Gautam Strange M.D. on 03/31/2018 at 9:02
[2018-03-31] MEDS: CLINDAMYCIN 900 MG/50 ML PIGGYBACK 50 MG IV ×2 (09:46→18:10)
[2018-03-31] MEDS: PANTOPRAZOLE 40 MG VIAL IV (09:48)
[2018-03-31] MEDS: levoFLOXacin 750 MG/150 ML PIGGYBACK 100 MG IV (11:22)
--- NOTE | 2018-03-31 12:04 | CM.DPC ---
DCP: continued: EMR reviewed for last few days. Noted that [facility] has worked with pt and his mother Chiquita and he now has [employer] /Medicaid as of Mar 24 2018. Pt remains with NG to suction, -ileostomy output, TPN. PICC being placed for continued IV antibiotics. Wound vac on. TPN. Pt is mobilizing with nursing staff and just beginning to work with PT. PT eval done on 02/27 shows a recommendation for snf setting as pt is not at his baseline mobility. PT also is using a FWW for pt...unclear if he will need this at discharge. Will defer to the therapy team. Discussed case with PT Jillian today and she recommends addition of OT orders. Will obtain order for same. Wound vac referral has been started with [facility]/rep: Sonya Gibson: cell [phone] fax: [phone]. [facility] will work on obtaining authorization for vac from [employer] and specifics of what they may need to do this will follow when Sonya knows more. She has direct IH/CM/DCP/Nurse tel #. Have talked with pt's mother Chiquita this morning and then with pt, still in ICU bed. Chiquita has confirmed that she would very much like her son to come home at d/c for recovery porcess but she will defer to him as to what choice he and the care team recommend. Pt today confirms that he does wish to consider a snf setting. He does plan to go home to stay at his mother's home until he is well enough to get on with his own life. Unclear if TPN will be needed after d/c. Did just talk with BUNNY Moore who states that her impression is that pt will not be discharging until he is eating normally. TPN is just a temporary supportive process. P: continue to follow as POC unfolds. Hospitalist team, per Dr. Tavarez, has currently signed over care to Dr. Levin and the surgical team. DC dispo goal of pt and mother Chiquita is home with supportive services. DCP team will continue to follow closely.
--- NOTE | 2018-03-31 12:33 | PT.IPTN ---
Physical Therapy Visit Type Type Patient Refusal Visit Start Time 12:11 Visit Stop Time 12:11 Notes Pt reports not sleeping well last night and needing to get more rest. Pt does report he's agreeable to get up later with nursing. Pt has been safely mobilizing with nursing staff and will be appropriate to continue doing this daily in addition to just one PT treatment each day. POC has been updated for pt to be seen QD. RS [id number]) PT Summary Assessment and Plan Frequency of Treatment Frequency Of Treatment Once a Day
[2018-03-31] MEDS: SODIUM CHLORIDE 0.9% 500 ML 21 ML IV (14:45)
[2018-03-31] MEDS: FLUCONAZOLE 400 MG/200 ML PIGGYBACK 100 MG IV (14:46)
[2018-03-31] MEDS: HYDROMORPHONE PCA 6 MG/30 ML PCA.VIAL IV ×3 (14:46→22:30)
--- NOTE | 2018-03-31 15:53 | PT.IPTN ---
Current Diagnoses Sepsis, unspecified organism (03/22/18) Hypocalcemia (03/22/18) Hypokalemia (03/22/18) Chronic pulmonary edema (03/22/18) Acute postprocedural respiratory failure (03/22/18) Ulcerative colitis, unspecified, without complications (03/22/18) Perforation of intestine (nontraumatic) (03/22/18) Severe sepsis with septic shock (03/22/18) Physical Therapy Treatment Note M2 PT-IP Current Condition Start: 03/28/18 17:17 Freq: NEEDED Status: Active Protocol: Document 03/29/18 15:25 RCC (Rec: 03/29/18 15:54 RCC [id number]) Physical Therapy Current Condition Current Condition Evaluation Date 03/28/18 Treatment Diagnosis post-op colectomy for perforated bowel Onset Date 03/22/18 Post Operative Precautions Abdominal Surgery Precautions Log Roll Lifting Restrictions Gait Belt above Incisional Area Other Precautions contact precautions: MRSA on nares M3 PT-IP Subjective Start: 03/28/18 17:17 Freq: NEEDED Status: Active Protocol: Document 03/31/18 14:32 RS (Rec: 03/31/18 15:53 RS [id number]) Subjective Physical Therapy Visit Type Type Treatment Note Visit Start Time 13:50 Visit Stop Time 14:32 Total Visit Minutes 42 Physical Therapy Visit Comments Patient/Caregiver Goals go directly home with family M4 PT-IP Mobility and Gait Start: 03/28/18 17:17 Freq: NEEDED Status: Active Protocol: Document 03/31/18 14:32 RS (Rec: 03/31/18 15:53 RS [id number]) PT-Bed Mobility Assessment Rolling Type of Rolling Roll to Right Level of Assist Minimal Assistance Supine to Sit Supine to Sit Standby Assistance Head of Bed Elevated Bedrails Sit to Supine Sit to Supine Contact Guard Assistance Bedrails Scooting Scooting to Edge of Bed Standby Assistance PT-Transfer Assessment Sit to and From Stand Sit to and from Stand Contact Guard Assistance Equipment Transfer Assistive Device Gait Belt Front Wheeled Walker Transfers Transfer Technique Stand Step Pivot Transfer Ability Level of Assist Contact Guard Assistance Gait Assessment Gait Gait Assistance Required: Contact Guard Assist 2 Person Assist Distance (Feet) (feet) 125 Assistive Devices Assistive Device Gait Belt Front Wheeled Walker Factors Limiting Gait Function Factors Limiting Gait Function Decreased Strength M5 PT-IP Objective Assessments Start: 03/28/18 17:17 Freq: NEEDED Status: Active Protocol: Document 03/28/18 17:17 AB (Rec: 03/28/18 17:27 AB [id number]) Orientation Orientation/Cognition Level of Alertness Alert Orientation Name Situation Strength Lower Extremity Strength Assessment Bilaterally Impaired Hip 3+/5 Knee 3/5 Ankle 3+/5 M6 PT-IP Treatment Start: 03/28/18 17:17 Freq: NEEDED Status: Active Protocol: Document 03/28/18 17:17 AB (Rec: 03/28/18 17:27 AB [id number]) Physical Therapy Treatment Education Post-Op Education Safety M7 PT-IP Assessment and Plan Start: 03/28/18 17:17 Freq: NEEDED Status: Active Protocol: Document 03/31/18 14:32 RS (Rec: 03/31/18 15:53 RS [id number]) PT Summary Assessment and Plan Potential Rehabilitation Potential Good Status of Condition at Evaluation Evolving Summary Impairments Strength Bed Mobility Transfers Gait Activity Tolerance Progress Towards Goals Progressing Toward Goals Assessment Summary Pt continues to slowly improve overall with mobility. For the most part pt is CGA with FWW for mobility and just needs extensive extra time, especially for bed mobility. Pt is very directive with care and actually does much better with RN present as far as active participation. Recommend therapies coordinate with nursing at the beginning of the day to establish a time to work with the patient in the afternoon. Pt's goal is home with assist, this plan could be feasible pending continued functional progress. Frequency of Treatment Frequency Of Treatment Once a Day
--- NOTE | 2018-03-31 15:55 | PM.PN.1 ---
Subjective Interval history: Patient awake and alert sitting comfortably in the bed. Oriented x3. Pain controlled. Rash improving. No itching. Beginning to feel hungry. Urinating without difficulty. Ambulating with assistance. Exam Vital Signs (past 8 hours): Vital Signs - 8 hr 03/31/18 08:00 03/31/18 08:34 03/31/18 11:35 Temperature 98.3 F Pulse Rate 106 H 97 H Respiratory Rate 20 14 Blood Pressure 116/67 108/64 Pulse Oximetry 96 97 98 03/31/18 12:00 Temperature Pulse Rate Respiratory Rate Blood Pressure Pulse Oximetry 96 Temperature 98.3 F Pulse Rate 97 Pulse Rate 106 Respiratory Rate 14 Respiratory Rate 20 Blood Pressure 108/64 Blood Pressure 116/67 Pulse Oximetry 96 Pulse Oximetry 98 Pulse Oximetry 97 Pulse Oximetry 96 Oxygen Delivery Method Room Air Oxygen Delivery Method Room Air Oxygen Delivery Method Room Air Oxygen Delivery Method Room Air Oxygen Flow Rate 0 Oxygen Flow Rate 0 Narrative Exam Narrative: Resting comfortably in bed. Alert oriented x3. Nasogastric tube has been clamped for some time now with only 150 cc or less residual output over the last 24-30 hours. Patient denies any nausea. Denies progressive abdominal pain or distention while NG clamped. Much better cough effort today. Tachycardia resolving. Sinus rhythm Diminished breath sounds bilaterally with few rhonchi Right PICC line has been placed. Left subclavian central line discontinued. Dressing is clean, dry, and intact. Wound VAC dressing on the abdomen remains in place with good suction. Output remained serosanguineous. Other than the rash as previously described be has no erythema the skin edges. Ileostomy is pink and viable but still edematous. No significant output in the appliance as yet however. Extremities show no clubbing or cyanosis. His edema is resolving nicely. Feet are warm and perfused. Objective Labs Result Diagrams: 03/31/18 05:00 03/31/18 05:00 Labs: Laboratory Results - last 24 hr 03/31/18 03/31/18 05:00 05:00 WBC 11.2 H RBC 3.26 L Hgb 9.5 L Hct 28.3 L MCV 86.8 MCH 29.0 MCHC 33.4 RDW 16.1 H Plt Count 201 Neut % (Auto) Not Reportable Lymph % (Auto) Not Reportable [place] % (Auto) Not Reportable Eos % (Auto) Not Reportable Baso % (Auto) Not Reportable Total Counted 100 Seg Neutrophils % 86.0 H Band Neutrophils % 6.0 Lymphocytes % (Manual) 4.0 L Atypical Lymphs % 1.0 H Monocytes % (Manual) 3.0 Neutrophils # (Manual) 43033 H RBC Morphology Not Reportable Target Cells 1+ H Sodium 126 L Potassium 4.1 Chloride 92.0 L Carbon Dioxide 28.0 BUN 8.0 L Creatinine 0.40 L Estimated GFR > 60.0 BUN/Creatinine Ratio 20.0 Glucose 117 H Calcium 6.8 L Phosphorus 4.5 Magnesium 2.0 Assessment & Plan Plan: Plan: 43-year-old male doing well now approximately 8 or 9 days after a subtotal colectomy for perforated toxic megacolon. Sepsis is resolving. We will plan to discontinue his antibiotics in the next 1-2 days. Continue TPN for now. I did discontinue his nasogastric tube but I will not advance his diet beyond ice chips until he begins to show signs of bowel function. Continue to ambulate with physical therapy aggressively. He may shower. We will change the wound VAC tomorrow after he showers. Continue DENTISTRY PROFESSOR until such time he can take oral intake. Hemoglobin remained stable. No indication for transfusion currently. Increased sodium chloride TPN. We may be able to transfer him from the ICU to a regular bed status within the next 24-48 hours. Possibly even discharge from the hospital to senior care facility or home with care assistance by the end of this week. All the above discussed with the patient in detail. All questions answered to his satisfaction, and he voiced understanding. Orders were written. Quality VTE Deep Vein Thrombosis/Pulmonary Embolism Present on Admission: No
--- NOTE | 2018-03-31 15:59 | P.PN_ITS ---
Subjective Interval history: Patient awake and alert sitting comfortably in the bed. Oriented x3. Pain controlled. Rash improving. No itching. Beginning to feel hungry. Urinating without difficulty. Ambulating with assistance. Exam Vital Signs (past 8 hours): Vital Signs - 8 hr 3 03/31/18 08:00 03/31/18 08:34 03/31/18 11:35 Temperature 98.3 F Pulse Rate 106 H 97 H Respiratory Rate 20 14 Blood Pressure 116/67 108/64 Pulse Oximetry 96 97 98 3 03/31/18 12:00 Temperature Pulse Rate Respiratory Rate Blood Pressure Pulse Oximetry 96 Temperature 98.3 F Pulse Rate 97 Pulse Rate 106 Respiratory Rate 14 Respiratory Rate 20 Blood Pressure 108/64 Blood Pressure 116/67 Pulse Oximetry 96 Pulse Oximetry 98 Pulse Oximetry 97 Pulse Oximetry 96 Oxygen Delivery Method Room Air Oxygen Delivery Method Room Air Oxygen Delivery Method Room Air Oxygen Delivery Method Room Air Oxygen Flow Rate 0 Oxygen Flow Rate 0 Narrative Exam Narrative: Resting comfortably in bed. Alert oriented x3. Nasogastric tube has been clamped for some time now with only 150 cc or less residual output over the last 24-30 hours. Patient denies any nausea. Denies progressive abdominal pain or distention while NG clamped. Much better cough effort today. Tachycardia resolving. Sinus rhythm Diminished breath sounds bilaterally with few rhonchi Right PICC line has been placed. Left subclavian central line discontinued. Dressing is clean, dry, and intact. Wound VAC dressing on the abdomen remains in place with good suction. Output remained serosanguineous. Other than the rash as previously described be has no erythema the skin edges. Ileostomy is pink and viable but still edematous. No significant output in the appliance as yet however. Extremities show no clubbing or cyanosis. His edema is resolving nicely. Feet are warm and perfused. Objective Labs Result Diagrams: 03/31/18 05:00 03/31/18 05:00 Labs: Laboratory Results - last 24 hr 03/31/18 03/31/18 05:00 05:00 WBC 11.2 H RBC 3.26 L Hgb 9.5 L Hct 28.3 L MCV 86.8 MCH 29.0 MCHC 33.4 RDW 16.1 H Plt Count 201 Neut % (Auto) Not Reportable Lymph % (Auto) Not Reportable Garrett % (Auto) Not Reportable Eos % (Auto) Not Reportable Baso % (Auto) Not Reportable Total Counted 100 Seg Neutrophils % 86.0 H Band Neutrophils % 6.0 Lymphocytes % (Manual) 4.0 L Atypical Lymphs % 1.0 H Monocytes % (Manual) 3.0 Neutrophils # (Manual) 22224 H RBC Morphology Not Reportable Target Cells 1+ H Sodium 126 L Potassium 4.1 Chloride 92.0 L Carbon Dioxide 28.0 BUN 8.0 L Creatinine 0.40 L Estimated GFR > 60.0 BUN/Creatinine Ratio 20.0 Glucose 117 H Calcium 6.8 L Phosphorus 4.5 Magnesium 2.0 Assessment & Plan Plan: Plan: 43-year-old male doing well now approximately 8 or 9 days after a subtotal colectomy for perforated toxic megacolon. Sepsis is resolving. We will plan to discontinue his antibiotics in the next 1-2 days. Continue TPN for now. I did discontinue his nasogastric tube but I will not advance his diet beyond ice chips until he begins to show signs of bowel function. Continue to ambulate with physical therapy aggressively. He may shower. We will change the wound VAC tomorrow after he showers. Continue TRACK PRODUCTION ENGINEER until such time he can take oral intake. Hemoglobin remained stable. No indication for transfusion currently. Increased sodium chloride TPN. We may be able to transfer him from the ICU to a regular bed status within the next 24-48 hours. Possibly even discharge from the hospital to alf facility or home with care assistance by the end of this week. All the above discussed with the patient in detail. All questions answered to his satisfaction, and he voiced understanding. Orders were written. Quality VTE Deep Vein Thrombosis/Pulmonary Embolism Present on Admission: No
--- NOTE | 2018-03-31 17:45 | PC.NURSE ---
Ostomy Nurse Note Collin is awake and has a much stronger voice this afternoon. His NG tube has been removed as well as both of the CEDRICK drains and his huff cath. The K[employer] negative pressure device is intact at 150HHmg. There is a moderate amount of drainage in the canister. I changed his appliance. The stoma is edematous, moist, pink/orange in color. It measures 1 1/8 inch. It is budded about 1 inch above his skin. The peristomal skin is intact. There is a small amount of clear effluent in the old pouch. I replaced the appliance with a [employer] 45mm moldable two piece appliance with a transparent, non-filtered pouch. I also gave Collin more teaching materials regarding ileostomies. He will review this and we will go over questions and more teaching on Friday, April 03.
[2018-03-31] MEDS: ENOXAPARIN 40 MG/0.4 ML SYRINGE SUBCUT (18:11)
[2018-03-31] MEDS: CALCIUM IV (18:12)
[2018-03-31] MEDS: [UNRECOGNIZED DRUG - OTHER] IV (18:12)
[2018-03-31] MEDS: LYTES IV (18:12)
[2018-03-31] MEDS: DEXT IV (18:12)
[2018-03-31] MEDS: SODIUM CHLORIDE IV (18:12)
[2018-03-31] MEDS: FAT EMULSIONS 50 GM/250 ML EMULSION IV (18:42)
--- NOTE | 2018-03-31 19:44 | RT ---
Breath sounds are decreased in RLL, otherwise clear. O2 sat on RA noted at 96%. RR = 18. Bronchodilator not indicated at this time.
[2018-04-01] VITALS (11 sets, daily range): BP systolic 110–132; BP diastolic 69–75; PULSE 105–118; RESP 16–22; TEMP 36.1–37; O2SAT 95–98
[2018-04-01] MEDS: CLINDAMYCIN 900 MG/50 ML PIGGYBACK 50 MG IV ×3 (01:08→19:47)
[2018-04-01] MEDS: LORazepam 2 MG/ML SYRINGE 1 MG IV (03:18)
--- NOTE | 2018-04-01 03:26 | PC.NURSE ---
Pt frustrated can't sleep, has insomnia and continues to call for food even though he knows he can only have ice chips. States he is hungry and it isn't right that he can't have food. Discussed POC encouraged pt to voice concerns with Dr. Levin in AM. Discussed Ativan to help w/anxiety about hunger and possibility of sleep. Pt agrees, ativan given.
[2018-04-01] MEDS: GENTAMICIN 120 MG in SODIUM CHLORIDE 0.9% 100 ML 103 ML IV ×2 (06:02→18:05)
--- NOTE | 2018-04-01 09:25 | DI.RAD.S_ITS ---
PROCEDURE: XR CHEST 1V INDICATIONS: recheck PICC line placement; swelling to right neck TECHNIQUE: One view of the chest was acquired. COMPARISON: [facility], CR, XR CHEST 1V, 03/31/2018, 8:39. [facility], CR, XR CHEST 1V, 03/28/2018, 6:00. [facility], CR, XR CHEST 1V, 03/26/2018, 6:02. [facility], CR, XR CHEST 1V, 03/25/2018, 5:32. FINDINGS: Surgical changes and devices: Right PICC now with tip in the proximal right brachiocephalic vein. Lungs and pleura: No pleural effusions or pneumothorax. Left lung base consolidation improved since yesterday. Stable right basilar pulmonary opacities. Mediastinum: Mediastinal contours appear normal. Heart size is normal. Bones and chest wall: No suspicious bony lesions. Overlying soft tissues appear unremarkable. IMPRESSION: Right PICC has been withdrawn now with tip in the proximal brachiocephalic vein. Improving left lower lobe volume loss. Stable right basilar pulmonary opacities. Dictated by: Smith Cade M.D. on 04/01/2018 at 10:06 Approved by: Smith Cade M.D. on 04/01/2018 at 10:08
--- NOTE | 2018-04-01 09:51 | CM.DPNOTE ---
[facility] SW faxed requested updated clinicals to Estella Perrin at [phone] for review. GERONIMO uDtta
--- NOTE | 2018-04-01 10:15 | PT.IPTN ---
Current Diagnoses Sepsis, unspecified organism (03/22/18) Hypocalcemia (03/22/18) Hypokalemia (03/22/18) Chronic pulmonary edema (03/22/18) Acute postprocedural respiratory failure (03/22/18) Ulcerative colitis, unspecified, without complications (03/22/18) Perforation of intestine (nontraumatic) (03/22/18) Severe sepsis with septic shock (03/22/18) Physical Therapy Treatment Note M3 PT-IP Subjective Start: 03/28/18 17:17 Freq: NEEDED Status: Active Protocol: Document 04/01/18 10:13 DCW (Rec: 04/01/18 10:14 DCW [id number]) Subjective Physical Therapy Visit Type Type Patient Refusal Notes Pt refused treatment at this time, noting that he just got done with a shower and is too tired to do anything else. Therapy will attempt to work with him again at a later time today.
--- NOTE | 2018-04-01 11:28 | DI.RAD.S_ITS ---
PROCEDURE: XR CHEST 1V INDICATIONS: 43 year-old male with ulcerative colitis and bowel perforation, status post PICC placement. TECHNIQUE: One view of the chest was acquired. COMPARISON: [facility], CR, XR CHEST 1V, 04/01/2018, 9:31. [facility], CR, XR CHEST 1V, 03/31/2018, 8:39. [facility], CR, XR CHEST 1V, 03/28/2018, 6:00. FINDINGS: Surgical changes and devices: New left PICC is present, with tip in the mid superior vena cava. Tip of right PICC remains unchanged in the medial right subclavian vein. Lungs and pleura: No left pleural effusions or pneumothorax. Retrocardiac air space opacities persist. Right costophrenic angle has been excluded from the film. Mediastinum: Mediastinal contours appear normal. Heart size is normal. Bones and chest wall: No suspicious bony lesions. Overlying soft tissues appear unremarkable. IMPRESSION: 1. New left PICC is present, with tip in expected position. 2. Persistent retrocardiac atelectasis versus pneumonia. Dictated by: Gautam Strange M.D. on 04/01/2018 at 11:54 Approved by: Gautam Strange M.D. on 04/01/2018 at 11:56
[2018-04-01] MEDS: PANTOPRAZOLE 40 MG VIAL IV (12:07)
--- NOTE | 2018-04-01 12:15 | PC.NURSE ---
DI PICC Replaced Placed new Double lumen picc in upper left arm after reviewing chest xray of picc placed yesterday in right upper arm had migrated and was in the proximal braciocephalic vein. Pt understands this and agreed to have another one placed. Placement verified by chest xray to be in the lower svc. positive blood return on bothe lumens. Placed and flushed per protocol. New lot number is [id number], line cut at 45cm, 5cm extends from insertion site and arm circumference is 22cm. Right upper arm picc was pulled per protocol and is intact. Nurse Fermín notified of placement and catheter is ready to use.
--- NOTE | 2018-04-01 12:45 | P.PN_ITS ---
Subjective Interval history: Patient awake and alert sitting comfortably in the bed. Oriented x3. Pain controlled. Rash improving. No itching. Feeling more hungry. Urinating without difficulty. Ambulating with assistance, especially with PT. Passed a small amount of gas and mucus per rectum without pain. No blood. No ostomy output as yet. Ostomy appliance changed yesterday per enterostomal therapist. Exam Vital Signs (past 8 hours): Vital Signs - 8 hr 3 04/01/18 08:27 04/01/18 08:32 Temperature 98.5 F Pulse Rate 110 H Respiratory Rate 16 Blood Pressure 124/73 H Pulse Oximetry 97 Pulse Oximetry 97 Fraction of Inspired Oxygen 30 Oxygen Delivery Method Room Air Oxygen Flow Rate 0 Narrative Exam Narrative: Patient appears somewhat fatigued and weak today. He is in a little more depressed. Stay. His PICC line was inadvertently displaced and he required a On the left side earlier this morning. That has been successfully inserted. I personally reviewed chest x-ray which shows it to be in good position. However , he continues to have evidence of pulmonary infiltrates, especially on the right side. Remains afebrile but still tachycardic. Sinus rhythm. Blood pressure is normal. Excellent urine output, and he is urinating spontaneously without difficulty. Wound VAC output is minimally serosanguineous with small amount of debris but no kathi pus. In fact, I personally change the wound VAC today and his wound is granulating nicely without evidence of any undrained cavities or residual purulent material. No necrotic material. Suture line along the fascia remains completely intact. Skin is pink and viable without erythema although the rash remains unchanged. He tolerated the wound VAC change well at the bedside. Ileostomy is pink and viable with no visible output. Abdomen remains slightly distended but not markedly so. He is appropriately tender to palpation but certainly with no guarding or rebound. Extremities are perfused without significant edema. Objective Labs Result Diagrams: 03/31/18 05:00 03/31/18 05:00 Labs: Laboratory Results - last 24 hr 03/31/18 05:00 RBC Morphology Not Reportable Assessment & Plan Plan: Plan: 43-year-old male approaching postoperative day 10 after emergent subtotal colectomy for perforated toxic megacolon secondary to ulcerative colitis with prolonged postoperative ileus as anticipated. Nevertheless, he has tolerated nasogastric tube removal for over 24 hr now. He continues to be hungry with no nausea or vomiting. I will therefore allow him a trial of clear liquids. I instructed him to sit completely upright while he is swallowing to minimize aspiration risk. I will not advance his diet beyond clear liquids until we began to have evidence of bowel function and he proves he is able to tolerate oral intake. In the interim we will continue his TPN and lipids. Repeat his laboratory studies tomorrow. If his white blood cell count remains normal and his procalcitonin level is unremarkable then we could stop antibiotics including Diflucan. I again encouraged aggressive pulmonary toilet including coughing, ambulation, and incentive spirometry. He remained stable on room air. Because of his overall stable and improved condition he can be transferred from the ICU to the regular surgical floor. He was agreeable to such. Continue DVT prophylaxis with SCDs and Lovenox. I discussed all the above with the patient in detail. All questions were answered to his satisfaction, and he voiced understanding. Orders were written. Quality VTE Deep Vein Thrombosis/Pulmonary Embolism Present on Admission: No
[2018-04-01] MEDS: INSULIN ASPART 100 UNIT/ML INSULN PEN SUBCUT ×2 (13:13→18:16)
[2018-04-01] MEDS: levoFLOXacin 750 MG/150 ML PIGGYBACK 100 MG IV (13:14)
--- NOTE | 2018-04-01 14:18 | DIET.PN ---
Pt advancing to CLD this evening with dinner. Visited pt in ICU but he was napping after a busy morning w surgeon, PT, and RT. Rec providing pt w Ensure Surgery TID once he advances to FLD; pt should consume Ensure Surg in addition to other PO intake for 7 days. After 7 days, pt may switch to Ensure Enlive BID and continue with these for vitamin/mineral, protein, and CaHMB provision as long as he wants and it is well tolerated. Plan is to meet with pt tomorrow AM when he has a little more energy. RDs will discuss above recommendations with him, as well as provide information regarding special dietary considerations for ileostomy (for when he advances to a general diet), and answer any pt questions at that time. May Ziegler, help desk internship
[2018-04-01] MEDS: HYDROMORPHONE PCA 6 MG/30 ML PCA.VIAL IV ×2 (14:48→21:33)
[2018-04-01] MEDS: FLUCONAZOLE 400 MG/200 ML PIGGYBACK 100 MG IV (14:48)
--- NOTE | 2018-04-01 15:03 | RT ---
No bronchodialator indicated, lungs decreased. Uses IS on own, splint coughs and is ambulating around CCU hallways with PT.
--- NOTE | 2018-04-01 16:35 | PT.IPTN ---
Current Diagnoses Sepsis, unspecified organism (03/22/18) Hypocalcemia (03/22/18) Hypokalemia (03/22/18) Chronic pulmonary edema (03/22/18) Acute postprocedural respiratory failure (03/22/18) Ulcerative colitis, unspecified, without complications (03/22/18) Perforation of intestine (nontraumatic) (03/22/18) Severe sepsis with septic shock (03/22/18) Physical Therapy Treatment Note M2 PT-IP Current Condition Start: 03/28/18 17:17 Freq: NEEDED Status: Active Protocol: Document 04/01/18 15:10 RCC (Rec: 04/01/18 16:30 RCC [email or web address]) Physical Therapy Current Condition Current Condition Evaluation Date 03/28/18 Treatment Diagnosis post-op colectomy for perforated bowel Onset Date 03/22/18 Post Operative Precautions Abdominal Surgery Precautions Log Roll Lifting Restrictions Gait Belt above Incisional Area Other Precautions contact precautions: 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 M4 PT-IP Mobility and Gait Start: 03/28/18 17:17 Freq: NEEDED Status: Active Protocol: Document 04/01/18 15:10 RCC (Rec: 04/01/18 16:30 RCC [email or web address]) PT-Bed Mobility Assessment Rolling Type of Rolling Roll to Right Level of Assist Minimal Assistance Supine to Sit Supine to Sit Minimal Assistance Head of Bed Elevated Bedrails Scooting Scooting to Edge of Bed Standby Assistance PT-Transfer Assessment Sit to and From Stand Sit to and from Stand Contact Guard Assistance Equipment Transfer Assistive Device Gait Belt Front Wheeled Walker Transfers Transfer Technique Stand Step Pivot Transfer Ability Level of Assist Contact Guard Assistance Comments Mobility Comments VC for safety of lines Gait Assessment Gait Gait Assistance Required: Contact Guard Assist 2 Person Assist Distance (Feet) (feet) 130 Assistive Devices Assistive Device Gait Belt Front Wheeled Walker Factors Limiting Gait Function Factors Limiting Gait Function Decreased Activity Tolerance Decreased Strength Comments Gait Comments 2 assist required due to lines (IV and wound vac), VC to avoid obstacles. M5 PT-IP Objective Assessments Start: 03/28/18 17:17 Freq: NEEDED Status: Active Protocol: Document 03/28/18 17:17 AB (Rec: 03/28/18 17:27 AB [id number]) Orientation Orientation/Cognition Level of Alertness Alert Orientation Name Situation Strength Lower Extremity Strength Assessment Bilaterally Impaired Hip 3+/5 Knee 3/5 Ankle 3+/5 M6 PT-IP Treatment Start: 03/28/18 17:17 Freq: NEEDED Status: Active Protocol: Document 03/28/18 17:17 AB (Rec: 03/28/18 17:27 AB [id number]) Physical Therapy Treatment Education Post-Op Education Safety M7 PT-IP Assessment and Plan Start: 03/28/18 17:17 Freq: NEEDED Status: Active Protocol: Document 04/01/18 15:10 RCC (Rec: 04/01/18 16:30 RCC [email or web address]) PT Summary Assessment and Plan Potential Rehabilitation Potential Good Status of Condition at Evaluation Evolving Summary Impairments Strength Bed Mobility Transfers Gait Activity Tolerance Progress Towards Goals Progressing Toward Goals Assessment Summary Pt requires manual assistance to get OOB, and also requires cuing to avoid running into objects with his FWW during ambulation. Pt does have pain with any movement, and fatigues quickly. He is well below his functional baseline, his and his family's wish is to return home when medically stable. Frequency of Treatment Frequency Of Treatment Once a Day Treatment Plan Other Recommendations and Next Treatment Log roll, gait with FWW. Focus Recommendations To Nursing Amount of Assist Needed 2 Person Assist Discharge Recommendations PT Discharge Recommendations Home with Assistance Equipment Needed for Home Before FWW Discharge
--- NOTE | 2018-04-01 17:21 | PC.NURSE ---
Estefany, Wound/operations section manager in to see pt. Visual check of ostomy. Discussed PO intake with pt and this RN. Will revisit pt in the a.m. Pt with flat affect this afternoon. C/O fatigue. Requesting something to help me sleep. Discussed RX, educate to medications. Monitor.
[2018-04-01] MEDS: ENOXAPARIN 40 MG/0.4 ML SYRINGE SUBCUT (18:04)
[2018-04-01] MEDS: FAT EMULSIONS 50 GM/250 ML EMULSION IV (18:05)
[2018-04-01] MEDS: DEXT IV (18:05)
[2018-04-01] MEDS: CALCIUM IV (18:05)
[2018-04-01] MEDS: LYTES IV (18:05)
[2018-04-01] MEDS: SODIUM CHLORIDE IV (18:05)
[2018-04-01] MEDS: [UNRECOGNIZED DRUG - OTHER] IV (18:05)
--- NOTE | 2018-04-01 18:10 | CM.DPC ---
DCP: continued: Spoke at [facility] this afternoon with Dr. Levin re POC and specifics of d/c needs. He states he does anticipate pt will need to be in hospital for several more days. He does not plan for wound vac at home, says the wounds are such that a transition to wet/dry will be fine. He expects pt to be off TPN and taking meals orally by time of d/c and with collaboration from the nutrition staff on what the meals will entail. He expects oral antibiotics by time of d/c. Agrees that HHS should be adequate to help pt manage at home with supportive assist from his mother and friends. Did call RACHEL Hassan and updated her re status of wound vac plan.
[2018-04-01] MEDS: METOCLOPRAMIDE 10 MG/2 ML INJ IV (19:13)
[2018-04-01] MEDS: ACETAMINOPHEN SUSP 650 MG/20.3 ML UDC PO (19:49)
[2018-04-02] VITALS (10 sets, daily range): BP systolic 116–129; BP diastolic 69–75; PULSE 106–109; RESP 16–25; TEMP 36.2–37.9; O2SAT 96–99; BMI 17.2
[2018-04-02] MEDS: LORazepam 2 MG/ML SYRINGE 1 MG IV ×2 (00:13→23:04)
[2018-04-02] MEDS: METOCLOPRAMIDE 10 MG/2 ML INJ IV ×4 (00:35→18:13)
[2018-04-02] MEDS: CLINDAMYCIN 900 MG/50 ML PIGGYBACK 50 MG IV ×2 (04:23→13:01)
[2018-04-02] MEDS: GENTAMICIN 120 MG in SODIUM CHLORIDE 0.9% 100 ML 103 ML IV ×2 (06:02→18:12)
[2018-04-02] MEDS: INSULIN ASPART 100 UNIT/ML INSULN PEN SUBCUT ×2 (06:07→11:22)
[2018-04-02 06:34] LABS: Add Manual Diff / Slide Review NO; Basophils Percent Auto 1.5 % (0-2); Eosinophils Percent Auto 0.3 % (2-4); Hemoglobin 9.4 g/dL (13.5-17.5); Lymphocytes Percent Auto 22.5 % (25-40); Mean Corpuscular HGB Conc 33.5 % (30-36); Mean Corpuscular Hemoglobin 28.8 PG (26-34); Mean Corpuscular Volume 85.9 fL (80-100); Monocytes Percent Auto 10.5 % (3-14); Neutrophils Absolute Auto 4400 /uL (3000-5900); Neutrophils Percent Auto 65.2 % (50-75); Platelet Count 303 X10^3/uL (150-400); Red Blood Cell Count 3.26 X10^6/uL (4.5-5.9); Red Cell Distribution Width 15.9 % (11.6-14.8); White Blood Cell Count 6.7 X10^3/uL (4.5-11.0)
[2018-04-02 06:46] LABS: BUN Creatinine Ratio 17.5 (6-22); Estimated Glomerular Filt Rate > 60.0 mL/min (>60); Glucose 140 mg/dL (70-100); Sodium 130 mmol/L (137-145)
[2018-04-02 06:47] LABS: HEMOLYSIS 58 (0-50)
[2018-04-02 06:55] LABS: Procalcitonin 0.29 ng/mL (<0.5)
[2018-04-02] MEDS: PANTOPRAZOLE 40 MG VIAL IV (10:00)
[2018-04-02] MEDS: SERTRALINE 50 MG TABLET PO (10:00)
[2018-04-02] MEDS: levoFLOXacin 750 MG/150 ML PIGGYBACK 100 MG IV (10:01)
[2018-04-02] MEDS: HYDROMORPHONE PCA 6 MG/30 ML PCA.VIAL IV ×2 (14:44→21:45)
[2018-04-02] MEDS: FLUCONAZOLE 400 MG/200 ML PIGGYBACK 100 MG IV (14:50)
--- NOTE | 2018-04-02 15:40 | PC.NURSE ---
pts had 400cc of brown liquid stool out of his illeostomy. resting comfortably in bed. denies pain. wound vac intact. iv antibiotics infusing.
--- NOTE | 2018-04-02 16:55 | PC.NURSE ---
Ostomy Nurse Note It was reported to me that Collin seems depressed. He greeted me with a smile and states that he is ready to go home. I told him he has to get stronger and he nodded. He is producing effluent from his stoma. I emptied 150cc of thick dark green effluent. I also removed the pouch. His stoma is edematous, moist and pale pink. I replaced the pouch with a clean one. Collin was up for a teaching session. I practiced on the stoma model. He correctly measured, molded and placed a wafer around the stoma model as well as placed the pouch. I showed him how to use stoma paste and he placed some on the model as well. I showed him how to do the crusting technique and pointed out the article regarding crusting in his [employer] guideline booklet. I reviewed one piece and two piece pouching system as well as features of pouching systems. I will return tomorrow to continue teaching. Collin states that he doesn't want to go to a SNF and he states that his mom and him can handle his care. This maybe possible with Home Health services. Collin is tolerating a clear liquid diet and I got him a hot cup of tea after his teaching session. His wound vac dressing is intact, although his nurse noticed that the battery was off and she plugged it back in.
[2018-04-02] MEDS: ENOXAPARIN 40 MG/0.4 ML SYRINGE SUBCUT (18:11)
--- NOTE | 2018-04-02 19:24 | P.PN_ITS ---
Subjective Interval history: Patient awake and alert sitting comfortably in the bed. Oriented x3. Pain controlled. Rash improving. No itching. Feeling more hungry. Urinating without difficulty. Ambulating with assistance, especially with PT. Tolerating clear liquids without issue. No nausea or vomiting. He is now having ileostomy output. Date Patient Seen: 04/02/18 Time Patient Seen: 19:19 Exam Vital Signs (past 8 hours): Vital Signs - 8 hr 3 04/02/18 15:45 04/02/18 16:00 04/02/18 16:46 Temperature 100.3 F H 100.3 F H Pulse Rate 108 H Respiratory Rate 18 Blood Pressure 118/73 Pulse Oximetry 97 99 Pulse Oximetry 99 Fraction of Inspired Oxygen 30 Oxygen Delivery Method Room Air Oxygen Flow Rate 0 Narrative Exam Narrative: Thin cachectic male in no acute distress. Alert oriented x3. Resting comfortably in bed. Remains tachycardic Mildly tachypneic at 18 per minute which has been his baseline since extubation Saturations normal. Mild low-grade temperature today which is the 1st time he has had a small low- grade fever of 100.3 in the last 72 hr or more. Copious rhonchi bilaterally but no wheezes Regular rhythm but tachycardic Abdomen soft and mildly distended. Nontender essentially. Wound VAC device is clean, dry, and intact. Output is minimal. No significant erythema. Rash is stable. Ileostomy is pink and viable with thicker bilious fluid within the appliance. Appliance was changed today per ostomy nurse. Extremities are no clubbing or cyanosis Objective Labs Result Diagrams: 04/02/18 06:00 04/02/18 06:00 Labs: Laboratory Results - last 24 hr 04/02/18 04/02/18 04/02/18 06:00 06:00 06:00 WBC 6.7 RBC 3.26 L Hgb 9.4 L Hct 28.0 L MCV 85.9 MCH 28.8 MCHC 33.5 RDW 15.9 H Plt Count 303 Neut % (Auto) 65.2 Lymph % (Auto) 22.5 L [place] % (Auto) 10.5 Eos % (Auto) 0.3 L Baso % (Auto) 1.5 Neut # (Auto) 4400 Sodium 130 L Potassium 4.0 Chloride 96.0 L Carbon Dioxide 24.0 BUN 7.0 L Creatinine 0.40 L Estimated GFR > 60.0 BUN/Creatinine Ratio 17.5 Glucose 140 H Calcium 7.0 L Procalcitonin 0.29 Assessment & Plan Plan: Plan: 43-year-old male now approximately 10 days status post emergent subtotal colectomy for perforated toxic megacolon secondary to a ulcerative colitis who continues to slowly improve. His ileus is now gradually resolving. We will advance him to a full liquid diet. Ensure Surg has been ordered with each meal 3 times a day as per dietary recommendations. Continue TPN for now. Hopefully we will be able to advance him to a regular diet with Ensure supplementation in the next 1-2 days and discontinue TPN. I suspect he will be here at least until next week as he continues to recover. His white blood cell count is now completely normal in his procalcitonin level was also normal. I will therefore stop all antibiotics and the Diflucan. Electrolytes and renal function are unremarkable. Sodium is correcting. Urine output and fluid status appears to be adequate although we will watch his ileostomy output. I explained that he may experience high ileostomy output 1st which could compromise his electrolytes and hydration status. He has no evidence of infection otherwise low-grade temperature may be respiratory in nature. Check chest x-ray tomorrow. Continue to ambulate aggressively and pulmonary toilet as instituted with coughing, deep breathing, and incentive spirometry. Wound VAC will need to be changed approximately 2 days from now. At some point we are likely to discontinue the wound VAC and begin wet-to-dry saline dressing changes. I doubt he will need a wound VAC at home. All questions were answered to his satisfaction, and he voiced understanding. Orders were written. Case discussed with the attending nurse as well. Quality VTE Deep Vein Thrombosis/Pulmonary Embolism Present on Admission: No
[2018-04-02] MEDS: FAT EMULSIONS 50 GM/250 ML EMULSION IV (19:30)
[2018-04-02] MEDS: [UNRECOGNIZED DRUG - OTHER] IV (19:30)
[2018-04-02] MEDS: CALCIUM IV (19:30)
[2018-04-02] MEDS: LYTES IV (19:30)
[2018-04-02] MEDS: SODIUM CHLORIDE IV (19:30)
[2018-04-02] MEDS: DEXT IV (19:30)
[2018-04-03] VITALS (9 sets, daily range): BP systolic 108–137; BP diastolic 62–84; PULSE 104–119; RESP 18–30; TEMP 37–37.8; O2SAT 92–97
--- NOTE | 2018-04-03 | DI.CT.S_ITS ---
PROCEDURE: CT ANGIO CHEST ABDOMEN PELVIS INDICATIONS: 43 year-old male with ulcerative colitis and toxic megacolon status post colectomy. Sudden onset of shortness of breath and hypoxia. TECHNIQUE: After the administration of intravenous contrast, 2.5 mm thick sections again acquired from the lung apices to the iliac crests. Maximum intensity projection (MIP) oblique sagittal and coronal reformats were then acquired. For radiation dose reduction, the following was used: automated exposure control. COMPARISON: [facility], CT, ABDOMEN/PELVIS WITH CONTRAST, 03/23/2018, 9:21. FINDINGS: Image quality: Excellent. AORTA: Intramural hematoma: Absent. Maximum hematoma thickness: Not applicable. Focal contrast enhancement: Intramural blood pool (< 2 mm neck or imperceptible communication with aortic lumen): Absent. Ulcer-like projection (broad communication with aortic lumen > 3 mm): Absent. Dissection: Absent. David classification: Not applicable. Periaortic hematoma: Absent. CHEST: Lungs and pleura: No acute airspace opacities. Small right and trace left basal pleural effusions are present, causing bilateral lower lobe compressive atelectasis. Central and peripheral airways are patent and normal in caliber. Mediastinum: Heart size is normal. No pericardial effusion. No mediastinal or hilar adenopathy by size criteria. Central pulmonary arteries are normal in size. On axial image 61, subsegmental pulmonary embolism is noted within the right lower lobe. Esophagus is normal in caliber. No hiatal hernias. Bones and chest wall: No axillary adenopathy by size criteria. Thyroid gland is normal in size. No suspicious bony lesions. No vertebral body compression fractures. ABDOMEN: Vasculature: Abdominal aorta is normal in caliber, with mild aortoiliac atherosclerosis. Celiac trunk and mesenteric arteries are patent. Renal arteries are also patent. Solid organs: Liver is normal in size and enhancement. Gallbladder wall thickness is normal. Biliary system is non dilated. Pancreas enhances normally. Spleen is normal in size and enhancement. No adrenal nodules. There is diffuse thickening of the left adrenal gland, consistent with hyperplasia. Both kidneys are normal in size and enhancement, with mild right hydronephrosis. Peritoneum and bowel: The patient is status post colectomy with right mid abdominal ileostomy. Unopacified small bowel loops appear normal in overall caliber and wall thickness. No free abdominal or pelvic fluid. There is trace anterior midline free air, just deep to an open laparotomy wound that is healing by secondary intention. Nodes and vessels: No retroperitoneal or mesenteric adenopathy by size criteria. Inferior vena cava is normal in morphology. Miscellaneous: No ventral hernias. Midline laparotomy wound is healing by secondary intention. PELVIS: Genitourinary: Bladder wall thickness is normal. Prostate gland is normal in size. Miscellaneous: No inguinal hernias or adenopathy. No ventral hernias. Bones: No suspicious bony lesions. No vertebral body compression fractures. Mild bilateral sacroiliitis is present, with small bone erosions. IMPRESSION: 1. Subsegmental pulmonary embolism involves the right lower lobe. 2. Small right and trace left mobile pleural effusions cause bibasilar compressive atelectasis. 3. Status post colectomy with right mid abdominal ileostomy. No small bowel obstruction. 4. Mild right hydronephrosis is of uncertain etiology. 5. 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 Dictated by: Gautam Strange M.D. on 04/03/2018 at 21:31 Approved by: Gautam Strange M.D. on 04/03/2018 at 21:46
[2018-04-03] MEDS: HYDROMORPHONE PCA 6 MG/30 ML PCA.VIAL IV ×3 (05:21→21:41)
--- NOTE | 2018-04-03 06:33 | PC.NURSE ---
Noc shift note: Sleeping between care, easily arousable. Continue on TNP infusion and Dilaudid APRON WORKER to CELINA PICC. Afebrile with HR 107-110 and mild tachypnea RR 20-25, O2 sat 96% on RA. Portable chest Xray performed this AM, pending results. Ileostomy drainage amount this shift total 625 ml, watery dark green. Abdominal wound Vac amount is approximately 20 ml this shift serousanguinous drainage. Blood glucose at 0100 128 mg/dl with no coverage required, 134 mg/dl, refused 1 unit of insulin as per sliding scale coverage.
--- NOTE | 2018-04-03 08:00 | DI.RAD.S_ITS ---
PROCEDURE: XR CHEST 1V INDICATIONS: 43 year-old male with cough and fevers status post colectomy for ulcerative colitis. TECHNIQUE: One view of the chest was acquired. COMPARISON: [facility], CR, XR CHEST 1V, 04/01/2018, 11:35. [facility], CR, XR CHEST 1V, 04/01/2018, 9:31. [facility], CR, XR CHEST 1V, 03/31/2018, 8:39. FINDINGS: Surgical changes and devices: Left PICC remains in expected position. Lungs and pleura: No pleural effusions or pneumothorax. Lungs are clear, with interval resolution of retrocardiac atelectasis. Mediastinum: Mediastinal contours appear normal. Heart size is normal. Bones and chest wall: No suspicious bony lesions. Overlying soft tissues appear unremarkable. IMPRESSION: No radiographic explanation for postoperative fevers. Dictated by: Gautam Strange M.D. on 04/03/2018 at 7:47 Approved by: Gautam Strange M.D. on 04/03/2018 at 7:49
[2018-04-03] MEDS: SERTRALINE 50 MG TABLET PO (09:59)
[2018-04-03] MEDS: PANTOPRAZOLE 40 MG VIAL IV (10:00)
--- NOTE | 2018-04-03 12:50 | DIET.PN ---
Visited pt this afternoon to check on tolerance of FLD (was advanced with breakfast this AM). Pt is tolerating it well but says a lot of things are too sweet, including Ensure Surg. He did consume 1 8oz container of this between B and L and had another one waiting for him on his L tray. Let him know that should his diet advance to General over the weekend, the kitchen knows to ensure he receives low-fiber foods that will ease the transition and reduce possibility of bloating, gas, excessive loose stool, or other ostomy complications. Asked pt if he had a chance to read over ileostomy diet packet we provided yesterday. He said he and his mother read over it and they did not have any questions at this time. May Ziegler, web design intern Bindu Ware RDN
--- NOTE | 2018-04-03 12:59 | PC.NURSE ---
Pts wound vac is at 100mm of suction. Drainage is serous colored in collection tube, pt has an open ml incision where ml dressing is compressed inside of open incision. Pt is tolerating well, no air leaks present. Picc line to l.upper arm wnl and pt is getting TPN and also tolerating this well. He denies nausea or emesis. Illeostomy bag putting out brown liquid stool. Bt +x4 and pt is passing some gas. Stoma is beefy red, Paola car starter will be by later to work with pt according to noc shift report from RN. Pt had a shower and shaved his cobos with the assistance of this RN. Sat up in the chair for about 30 minutes and then went to bed. Ate well at breakfast but not to much at lunch. Pt has decreased lung sounds, sats are 96% on ra. He has a weak cough and needs to clear his throat. He was intubated for a few days down in the ICU. Using Yanker to suction secretions. Resting comfortably now. Respiratory rate has decreased. Dr. Haley in and rounded on pt. He is aware of pts breathing, with no new orders.
[2018-04-03] MEDS: INSULIN ASPART 100 UNIT/ML INSULN PEN SUBCUT (13:08)
[2018-04-03] MEDS: SODIUM CHLORIDE 0.9% 500 ML 21 ML IV (14:17)
--- NOTE | 2018-04-03 14:24 | PC.NURSE ---
Day shift: This designer/writer has this Pt at approx 1315 from [facility]LL[facility]. Met w/ Pt and let him know to use calllight for needs. Calllight in reach. Pt stated he is comfortable at that time. Materials called for new insert for woundvac becausea the one in know is full and has alarmed.
--- NOTE | 2018-04-03 15:24 | CM.DPC ---
DC Plan Ongoing 04/03: Met briefly with patient who has now been transferred to room 225. States he is feeling better, I think, and no longer has NG tube, for which he is thankful. Still has some trouble speaking in longer sentences r/t throat soreness. He states as far as he knows, there have been no changes in the d/c plan, and no new updates from home. He is A&O, but looks a bit tired, although color in his face has improved considerably from seeing him last week. Spoke with staff nurse Gale who states Dr. Levin likely to d/c pt home next week, plan is NO wound vac at home, but he will be switched to a wet-to-dry graze and saline dressing which pt and his mother will be able to do. Pt is fully invested in his care, per Gale. Also stated that Paola Moon has done teaching on ileostomy care for both pt and mother, and may yet be in later today to do additional teaching. Note: Mother quite involved in pt care, per Gale. She also has a son with Cerebral Palsy at home, so hands are full, but report is that the family is very tight and supportive. Patti Aguero, RN
--- NOTE | 2018-04-03 16:16 | PT.IPTN ---
Current Diagnoses Sepsis, unspecified organism (03/22/18) Hypocalcemia (03/22/18) Hypokalemia (03/22/18) Chronic pulmonary edema (03/22/18) Acute postprocedural respiratory failure (03/22/18) Ulcerative colitis, unspecified, without complications (03/22/18) Perforation of intestine (nontraumatic) (03/22/18) Severe sepsis with septic shock (03/22/18) Physical Therapy Treatment Note M2 PT-IP Current Condition Start: 03/28/18 17:17 Freq: NEEDED Status: Active Protocol: Document 04/01/18 15:10 RCC (Rec: 04/01/18 16:30 RCC [email or web address]) Physical Therapy Current Condition Current Condition Evaluation Date 03/28/18 Treatment Diagnosis post-op colectomy for perforated bowel Onset Date 03/22/18 Post Operative Precautions Abdominal Surgery Precautions Log Roll Lifting Restrictions Gait Belt above Incisional Area Other Precautions contact precautions: MRSA on nares M3 PT-IP Subjective Start: 03/28/18 17:17 Freq: NEEDED Status: Active Protocol: Document 04/03/18 16:08 RS (Rec: 04/03/18 16:13 RS [email or web address]) Subjective Physical Therapy Visit Type Type Treatment Note Visit Start Time 15:32 Visit Stop Time 15:50 Total Visit Minutes 18 Physical Therapy Visit Comments Patient Comments Pt reports doing ok, happy to have the tube out of his nose. Therapy Pain Assessment Pain When Pain Assessed At Rest Pain Present Pain Present Denied Pain M4 PT-IP Mobility and Gait Start: 03/28/18 17:17 Freq: NEEDED Status: Active Protocol: Document 04/02/18 11:50 GGD (Rec: 04/02/18 11:56 GGD [id number]) PT-Bed Mobility Assessment Rolling Type of Rolling Log Rolling Sit to Supine Sit to Supine Contact Guard Assistance 1 Person Assistance Scooting Scooting to Edge of Bed Standby Assistance PT-Transfer Assessment Sit to and From Stand Sit to and from Stand Contact Guard Assistance Equipment Transfer Assistive Device Gait Belt Front Wheeled Walker Transfers Transfer Technique Stand Step Pivot Transfer Ability Level of Assist Contact Guard Assistance Comments Mobility Comments VC for safety of lines Gait Assessment Gait Gait Assistance Required: Contact Guard Assist 1 Person Assist Distance (Feet) (feet) 30 Assistive Devices Assistive Device Gait Belt Front Wheeled Walker M5 PT-IP Objective Assessments Start: 03/28/18 17:17 Freq: NEEDED Status: Active Protocol: Document 03/28/18 17:17 AB (Rec: 03/28/18 17:27 AB [id number]) Orientation Orientation/Cognition Level of Alertness Alert Orientation Name Situation Strength Lower Extremity Strength Assessment Bilaterally Impaired Hip 3+/5 Knee 3/5 Ankle 3+/5 M6 PT-IP Treatment Start: 03/28/18 17:17 Freq: NEEDED Status: Active Protocol: Document 04/03/18 16:08 RS (Rec: 04/03/18 16:13 RS [email or web address]) Physical Therapy Treatment Exercises Exercises Ankle Pumps Gluteal Sets Quad Sets Heel Slides Supine Hip Abduction Other Treatments Other Treatment Performed also have low bridges in pt's HEP M7 PT-IP Assessment and Plan Start: 03/28/18 17:17 Freq: NEEDED Status: Active Protocol: Document 04/03/18 16:14 RS (Rec: 04/03/18 16:16 RS [email or web address]) PT Summary Assessment and Plan Summary Assessment Summary Pt able to complete the exercises without increase in pain. Verbal cues were given for all leg AROM exercises for a gentle ab set to be held while moving the legs and to not hold the breath. Pt tired after these exercises. It would be best to coordinate with nursing who will be doing walks/showers with the patient as he is currently only tolerating one longer walk/activity each day. These exercises will be good for pt to continue doing outside of therapy to slowly improve strength/endurance. Discharge Recommendations PT Discharge Recommendations Home with Assistance Home Health
--- NOTE | 2018-04-03 17:39 | PC.NURSE ---
Ostomy Nurse Note Collin awake in his room with a friend. Nursing staff states that the [employer] Negative Pressure Wound Vac is beeping and running at low 100mmHg and it should be continues at 125mmHg. I could hear a leak at the button pad of the tubing. I added more tagaderm and it stopped the leak and the wound vac went back up to 125mmHg. He is draining mason colored drainage into the canister. There was a scant amount of drainage during my visit. I did speak to Dr. Haley via phone to inform him of the wound drainage color. Dr. Haley will arrive tomorrow to change the wound vac dressing. Collin was too tired for teaching this afternoon and he slept during his appliance change. He has yellow/green liquid drainage. His stoma measures 1 1/8. His stoma is beefy red today not like yesterday, as yesterday it was more pale pink in color. His stoma continues to be edematous and moist. I placed a 45mm Convatec moldable two piece appliance with an adaptor and a clear non-filtered pouch. He did pass some intestinal lining which measured approximately 1.0cm x 1.0cm. He also has some stringy mason effluent. I did show his nurse and she will continue monitor his effluent. I will return on Friday for continued teaching sessions with Collin.
--- NOTE | 2018-04-03 17:42 | P.PN_ITS ---
Subjective Interval history: Patient feeling weak. Food is either too sweet or knots we had enough. He is not taking in p.o. well. He has large amount of ostomy output. He is not having much abdominal pain. Overall is starting to feel better. Exam Vital Signs (past 8 hours): Vital Signs - 8 hr 3 04/03/18 12:55 04/03/18 13:16 04/03/18 16:10 Temperature 98.9 F 99.4 F Pulse Rate 105 H 104 H Respiratory Rate 22 18 Blood Pressure 108/62 114/76 Pulse Oximetry 96 92 97 Pulse Oximetry 97 Fraction of Inspired Oxygen 30 Oxygen Delivery Method Room Air Oxygen Flow Rate 0 Narrative Exam Narrative: Co operative in no apparent distress. His lungs are clear to auscultation. Dressing is intact. Abdomen is soft. Greenish ostomy output mostly liquid in the bag. Fairly large amount. Objective Labs Result Diagrams: 04/02/18 06:00 04/02/18 06:00 Assessment & Plan Post-op Postoperative Subtotal abdominal colectomy Postoperative status: other (Patient appears weak. I encouraged him to try to eat. Will add a multiple vitamin. We will continue his TPN. He is severely and nutritionally depleted with the protein calorie malnutrition. We will change his wound VAC tomorrow.) Time Spent With Patient less than 15 minutes Quality VTE Deep Vein Thrombosis/Pulmonary Embolism Present on Admission: No
[2018-04-03] MEDS: ENOXAPARIN 40 MG/0.4 ML SYRINGE SUBCUT (18:43)
[2018-04-03] MEDS: CALCIUM IV (18:45)
[2018-04-03] MEDS: [UNRECOGNIZED DRUG - OTHER] IV (18:45)
[2018-04-03] MEDS: SODIUM CHLORIDE IV (18:45)
[2018-04-03] MEDS: FAT EMULSIONS 50 GM/250 ML EMULSION IV (18:45)
[2018-04-03] MEDS: DEXT IV (18:45)
[2018-04-03] MEDS: LYTES IV (18:45)
--- NOTE | 2018-04-03 20:29 | PC.NURSE ---
evening shift patient febrile with 100.0 fever at 1999, pulse is 120's. o2 needs increased to 3L nc, o2 sat is 91%. dr. velarde aware. wound vac d/c'd. wound packed by this rn with wet-to-dry gauze and covered with abd pad and tape. signed and dated. patient coughing up white sputum. using yankuer to suction. using sea captain appropriately. pain managed at 01/31. patient escorted down to ct scan via bed with o2 in place and sea captain temporarily stopped so that ct has access to his picc line; tpn is still continuing to infuse. will reassess when he comes back. patient has refused offers of tylenol.
--- NOTE | 2018-04-03 20:48 | PM.PNPO.1 ---
Subjective Interval history: Patient feeling weak. Food is either too sweet or knots we had enough. He is not taking in p.o. well. He has large amount of ostomy output. He is not having much abdominal pain. Overall is starting to feel better. Exam Vital Signs (past 8 hours): Vital Signs - 8 hr 04/03/18 12:55 04/03/18 13:16 04/03/18 16:00 Temperature 98.9 F Pulse Rate 105 H Respiratory Rate 22 Blood Pressure 108/62 Pulse Oximetry 96 92 95 04/03/18 16:10 Temperature 99.4 F Pulse Rate 104 H Respiratory Rate 18 Blood Pressure 114/76 Pulse Oximetry 97 Pulse Oximetry 97 Fraction of Inspired Oxygen 30 Oxygen Delivery Method Room Air Oxygen Flow Rate 0 Objective Labs Result Diagrams: 04/02/18 06:00 04/02/18 06:00 Assessment & Plan Post-op (1) SOB (shortness of breath): Problem details: Called because patient appeared to be struggling breathing. Her O2 sat on room air was in the upper 80s and oxygen was supplemented. He feels like he is struggling to breathe. On examination he has good breath sounds throughout. Chest x-ray earlier today was clear. He has a low-grade temperature of a 100.4?. We will send for CT chest angio +abdomen and pelvis to rule out abdominal pathology causing his temp. He is having good ostomy output. I took the wound VAC down as it appeared to be clogged. He does have some granulation tissue forming but the wound at the bases . Will begin normal saline wet-to-dry dressings until this cleans up a bit. Current Visit: Yes Status: Acute Time Spent With Patient 25 - 35 minutes Quality VTE Deep Vein Thrombosis/Pulmonary Embolism Present on Admission: No
--- NOTE | 2018-04-03 20:53 | P.PN_ITS ---
Subjective Interval history: Patient feeling weak. Food is either too sweet or knots we had enough. He is not taking in p.o. well. He has large amount of ostomy output. He is not having much abdominal pain. Overall is starting to feel better. Exam Vital Signs (past 8 hours): Vital Signs - 8 hr 3 04/03/18 12:55 04/03/18 13:16 04/03/18 16:00 Temperature 98.9 F Pulse Rate 105 H Respiratory Rate 22 Blood Pressure 108/62 Pulse Oximetry 96 92 95 3 04/03/18 16:10 Temperature 99.4 F Pulse Rate 104 H Respiratory Rate 18 Blood Pressure 114/76 Pulse Oximetry 97 Pulse Oximetry 97 Fraction of Inspired Oxygen 30 Oxygen Delivery Method Room Air Oxygen Flow Rate 0 Objective Labs Result Diagrams: 04/02/18 06:00 04/02/18 06:00 Assessment & Plan Post-op (1) SOB (shortness of breath): Problem details: Called because patient appeared to be struggling breathing. Her O2 sat on room air was in the upper 80s and oxygen was supplemented. He feels like he is struggling to breathe. On examination he has good breath sounds throughout. Chest x-ray earlier today was clear. He has a low-grade temperature of a 100.4? ?. We will send for CT chest angio +abdomen and pelvis to rule out abdominal pathology causing his temp. He is having good ostomy output. I took the wound VAC down as it appeared to be clogged. He does have some granulation tissue forming but the wound at the bases . Will begin normal saline wet-to- dry dressings until this cleans up a bit. Current Visit: Yes Status: Acute Time Spent With Patient 25 - 35 minutes Quality VTE Deep Vein Thrombosis/Pulmonary Embolism Present on Admission: No
[2018-04-03] MEDS: ENOXAPARIN 30 MG/0.3 ML SYRINGE SUBCUT (22:56)
[2018-04-04] VITALS (9 sets, daily range): BP systolic 110–123; BP diastolic 63–75; PULSE 98–115; RESP 16–30; TEMP 36.4–37.6; O2SAT 2–98
[2018-04-04 05:31] LABS: Hematocrit 28.9 % (41-53); Hemoglobin 9.6 g/dL (13.5-17.5); Mean Corpuscular HGB Conc 33.2 % (30-36); Mean Corpuscular Hemoglobin 28.8 PG (26-34); Mean Corpuscular Volume 86.9 fL (80-100); Platelet Count 440 X10^3/uL (150-400); Red Blood Cell Count 3.33 X10^6/uL (4.5-5.9); Red Cell Distribution Width 16.3 % (11.6-14.8); White Blood Cell Count 14.1 X10^3/uL (4.5-11.0)
[2018-04-04 05:32] LABS: Add Manual Diff / Slide Review YES
[2018-04-04 05:33] LABS: Lactate (Lactic Acid) 1.4 mmol/L (0.7-2.1)
[2018-04-04 05:35] LABS: Alanine Aminotransferase 63 IU/L (21-72); Albumin 2.2 g/dL (3.5-5.0); Albumin Globulin Ratio 0.6 (1.0-2.8); Alkaline Phosphatase 272 U/L (38-126); Aspartate Aminotransferase 37 IU/L (17-59); Bilirubin Total 0.4 mg/dL (0.2-1.3); Calcium 7.1 mg/dL (8.4-10.2); Estimated Glomerular Filt Rate > 60.0 mL/min (>60); Glucose 145 mg/dL (70-100); HEMOLYSIS < 15 (0-50); Potassium 4.1 mmol/L (3.4-5.1); Sodium 130 mmol/L (137-145); Total Protein 6.2 g/dL (6.3-8.2)
[2018-04-04] MEDS: HYDROMORPHONE PCA 6 MG/30 ML PCA.VIAL IV ×2 (06:09→13:00)
[2018-04-04 06:11] LABS: Procalcitonin 0.17 ng/mL (<0.5)
[2018-04-04] MEDS: INSULIN ASPART 100 UNIT/ML INSULN PEN SUBCUT (06:18)
[2018-04-04 06:56] LABS: Anisocytosis 2+; Hypochromasia 1+
[2018-04-04 08:52] LABS: HCO3 ABG 21 mmol/L (23-27); Oxygen Saturation ABG 96 % (95-100); PCO2 ABG 29.8 mmHg (35-45); PO2 ABG 78 mmHg (80-105); TCO2 ABG 22 mmol/L (23-27); pH ABG 7.45 (7.35-7.45)
[2018-04-04 08:53] LABS: Fractionated Inspired Oxygen 2
[2018-04-04] MEDS: PANTOPRAZOLE 40 MG VIAL IV (09:36)
[2018-04-04] MEDS: SERTRALINE 50 MG TABLET PO (09:36)
[2018-04-04] MEDS: MULTIVIT,CALC,MINS/IRON/FOLIC 1 TABLET 1 TAB PO (09:37)
[2018-04-04] MEDS: ENOXAPARIN 60 MG/0.6 ML SYRINGE 50 MG SUBCUT ×2 (09:57→20:24)
--- NOTE | 2018-04-04 12:20 | PT.IPTN ---
Current Diagnoses Sepsis, unspecified organism (03/22/18) Hypocalcemia (03/22/18) Hypokalemia (03/22/18) Chronic pulmonary edema (03/22/18) Acute postprocedural respiratory failure (03/22/18) Ulcerative colitis, unspecified, without complications (03/22/18) Perforation of intestine (nontraumatic) (03/22/18) Shortness of breath (03/22/18) Severe sepsis with septic shock (03/22/18) Physical Therapy Treatment Note M2 PT-IP Current Condition Start: 03/28/18 17:17 Freq: NEEDED Status: Active Protocol: Document 04/01/18 15:10 RCC (Rec: 04/01/18 16:30 RCC [email or web address]) Physical Therapy Current Condition Current Condition Evaluation Date 03/28/18 Treatment Diagnosis post-op colectomy for perforated bowel Onset Date 03/22/18 Post Operative Precautions Abdominal Surgery Precautions Log Roll Lifting Restrictions Gait Belt above Incisional Area Other Precautions contact precautions: MRSA on nares M3 PT-IP Subjective Start: 03/28/18 17:17 Freq: NEEDED Status: Active Protocol: Document 04/04/18 12:14 GGD (Rec: 04/04/18 12:20 GGD [email or web address]) Subjective Physical Therapy Visit Type Type Treatment Note Visit Start Time 11:55 Visit Stop Time 12:15 Total Visit Minutes 25 Number of OIL WELL CABLE TOOL 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 Therapy Pain Assessment Pain When Pain Assessed At Rest Pain Present Pain Present Denied Pain M4 PT-IP Mobility and Gait Start: 03/28/18 17:17 Freq: NEEDED Status: Active Protocol: Document 04/04/18 12:14 GGD (Rec: 04/04/18 12:20 GGD [email or web address]) PT-Bed Mobility Assessment Rolling Type of Rolling Log Rolling Level of Assist Contact Guard Assistance Supine to Sit Supine to Sit Contact Guard Assistance Bedrails Scooting Scooting to Edge of Bed Standby Assistance PT-Transfer Assessment Sit to and From Stand Sit to and from Stand Contact Guard Assistance Equipment Transfer Assistive Device Gait Belt Front Wheeled Walker Transfers Transfer Destination Chair Transfer Technique Stand Step Pivot Transfer Ability Level of Assist Contact Guard Assistance Gait Assessment Gait Gait Assistance Required: Contact Guard Assist 1 Person Assist Distance (Feet) (feet) 250 Assistive Devices Assistive Device Gait Belt Front Wheeled Walker M5 PT-IP Objective Assessments Start: 03/28/18 17:17 Freq: NEEDED Status: Active Protocol: Document 03/28/18 17:17 AB (Rec: 03/28/18 17:27 AB [id number]) Orientation Orientation/Cognition Level of Alertness Alert Orientation Name Situation Strength Lower Extremity Strength Assessment Bilaterally Impaired Hip 3+/5 Knee 3/5 Ankle 3+/5 M6 PT-IP Treatment Start: 03/28/18 17:17 Freq: NEEDED Status: Active Protocol: Document 04/04/18 12:14 GGD (Rec: 04/04/18 12:20 GGD [email or web address]) PT Summary Assessment and Plan Summary Assessment Summary Pt needed cues for full log roll. He improved with gait distance and no LOB during. Frequency of Treatment Frequency Of Treatment Once a Day Treatment Plan Other Recommendations and Next Treatment Log roll, gait with FWW. Focus Recommendations To Nursing Amount of Assist Needed 1 Person Assist Discharge Recommendations PT Discharge Recommendations Home with Assistance Home Health
[2018-04-04] MEDS: ONDANSETRON 4 MG/2 ML VIAL IV (12:52)
--- NOTE | 2018-04-04 14:46 | PM.PNPO.1 ---
Subjective Interval history: Patient out of bed. Feeling much better than yesterday. Breathing easier. Still not eating much. Exam Vital Signs (past 8 hours): Vital Signs - 8 hr 04/04/18 08:29 04/04/18 11:16 04/04/18 12:00 Temperature 99.7 F H 98.2 F Pulse Rate 112 H 101 H Respiratory Rate 18 20 Blood Pressure 121/71 H 110/69 Pulse Oximetry 96 95 97 04/04/18 14:33 Temperature 97.6 F Pulse Rate Respiratory Rate 18 Blood Pressure 118/75 Pulse Oximetry 98 Pulse Oximetry 98 Fraction of Inspired Oxygen 30 Oxygen Delivery Method Nasal Cannula Oxygen Flow Rate 2 Narrative Exam Narrative: Some rhonchi in the right lateral lung ramos. Otherwise clear. Fair effort. Abdomen is soft. The midline has some necrotic fascia and fat that should be ready did debride shortly. I would like to give him another day of wet to dry dressing. I would rather not CT his stitches at this point. I will not reapply the wound VAC at this time. Once we cleaned up a little more perhaps I can. Objective Labs Result Diagrams: 04/04/18 05:15 04/04/18 05:15 Labs: Laboratory Results - last 24 hr 04/04/18 04/04/18 04/04/18 05:15 05:15 05:15 WBC 14.1 H D RBC 3.33 L Hgb 9.6 L Hct 28.9 L MCV 86.9 MCH 28.8 MCHC 33.2 RDW 16.3 H Plt Count 440 H Neut % (Auto) Not Reportable Lymph % (Auto) Not Reportable [place] % (Auto) Not Reportable Eos % (Auto) Not Reportable Baso % (Auto) Not Reportable Seg Neutrophils % 43.0 Band Neutrophils % 23.0 H Lymphocytes % (Manual) 16.0 L Atypical Lymphs % 8.0 H Monocytes % (Manual) 3.0 Eosinophils % (Manual) 2.0 Basophils % (Manual) 1.0 Myelocytes % 4.0 H RBC Morphology Not Reportable Polychromasia Hypochromasia 1+ H Anisocytosis 2+ H ABG pH ABG pCO2 ABG pO2 ABG HCO3 ABG Total CO2 ABG O2 Saturation ABG Base Excess FiO2 Sodium 130 L Potassium 4.1 Chloride 99.0 Carbon Dioxide 22.0 BUN 10.0 Creatinine 0.40 L Estimated GFR > 60.0 BUN/Creatinine Ratio 25.0 H Glucose 145 H Lactate Calcium 7.1 L Total Bilirubin 0.4 AST 37 ALT 63 Alkaline Phosphatase 272 H D Total Protein 6.2 L Albumin 2.2 L Globulin 4.0 Albumin/Globulin Ratio 0.6 L Procalcitonin 0.17 04/04/18 04/04/18 05:15 08:31 WBC RBC Hgb Hct MCV MCH MCHC RDW Plt Count Neut % (Auto) Lymph % (Auto) [place] % (Auto) Eos % (Auto) Baso % (Auto) Seg Neutrophils % Band Neutrophils % Lymphocytes % (Manual) Atypical Lymphs % Monocytes % (Manual) Eosinophils % (Manual) Basophils % (Manual) Myelocytes % RBC Morphology Polychromasia Hypochromasia Anisocytosis ABG pH 7.45 ABG pCO2 29.8 L ABG pO2 78 L ABG HCO3 21 L ABG Total CO2 22 L ABG O2 Saturation 96 ABG Base Excess -3.0 L FiO2 2 Sodium Potassium Chloride Carbon Dioxide BUN Creatinine Estimated GFR BUN/Creatinine Ratio Glucose Lactate 1.4 Calcium Total Bilirubin AST ALT Alkaline Phosphatase Total Protein Albumin Globulin Albumin/Globulin Ratio Procalcitonin Assessment & Plan Post-op Postoperative Postoperative status: other (Patient tolerating TPN fairly well. Will continue it. No cellulitis of the wound. There is some loss of deep tissues which will be debrided the with dressing changes or with a scissors. I will not reapply the wound VAC right now. White blood cell count has a marked left shift. ) Postoperative plan: other Time Spent With Patient less than 15 minutes Quality VTE Deep Vein Thrombosis/Pulmonary Embolism Present on Admission: No
--- NOTE | 2018-04-04 14:49 | PM.PN.1 ---
Subjective Interval history: Patient had acute dyspnea with drop in O2 sats last night. Stat CT angiogram revealed subsegmental pulmonary embolism. He has been on low-dose Lovenox prophylaxis postop. He was started on full-dose Lovenox. He is not feeling short of breath or having pleuritic chest pain this afternoon. Exam Vital Signs (past 8 hours): Vital Signs - 8 hr 04/04/18 08:29 04/04/18 11:16 04/04/18 12:00 Temperature 99.7 F H 98.2 F Pulse Rate 112 H 101 H Respiratory Rate 18 20 Blood Pressure 121/71 H 110/69 Pulse Oximetry 96 95 97 04/04/18 14:33 Temperature 97.6 F Pulse Rate Respiratory Rate 18 Blood Pressure 118/75 Pulse Oximetry 98 Pulse Oximetry 98 Fraction of Inspired Oxygen 30 Oxygen Delivery Method Nasal Cannula Oxygen Flow Rate 2 Narrative Exam Narrative: General: Thin male in no acute distress Lungs: Clear to auscultation Heart: Regular rhythm Abdomen: Open surgical wound healing by secondary intention Extremities: No calf edema Neurological: Alert and oriented, nonfocal Objective Labs Result Diagrams: 04/04/18 05:15 04/04/18 05:15 Labs: Laboratory Results - last 24 hr 04/04/18 04/04/18 04/04/18 05:15 05:15 05:15 WBC 14.1 H D RBC 3.33 L Hgb 9.6 L Hct 28.9 L MCV 86.9 MCH 28.8 MCHC 33.2 RDW 16.3 H Plt Count 440 H Neut % (Auto) Not Reportable Lymph % (Auto) Not Reportable [place] % (Auto) Not Reportable Eos % (Auto) Not Reportable Baso % (Auto) Not Reportable Seg Neutrophils % 43.0 Band Neutrophils % 23.0 H Lymphocytes % (Manual) 16.0 L Atypical Lymphs % 8.0 H Monocytes % (Manual) 3.0 Eosinophils % (Manual) 2.0 Basophils % (Manual) 1.0 Myelocytes % 4.0 H RBC Morphology Not Reportable Polychromasia Hypochromasia 1+ H Anisocytosis 2+ H ABG pH ABG pCO2 ABG pO2 ABG HCO3 ABG Total CO2 ABG O2 Saturation ABG Base Excess FiO2 Sodium 130 L Potassium 4.1 Chloride 99.0 Carbon Dioxide 22.0 BUN 10.0 Creatinine 0.40 L Estimated GFR > 60.0 BUN/Creatinine Ratio 25.0 H Glucose 145 H Lactate Calcium 7.1 L Total Bilirubin 0.4 AST 37 ALT 63 Alkaline Phosphatase 272 H D Total Protein 6.2 L Albumin 2.2 L Globulin 4.0 Albumin/Globulin Ratio 0.6 L Procalcitonin 0.17 04/04/18 04/04/18 05:15 08:31 WBC RBC Hgb Hct MCV MCH MCHC RDW Plt Count Neut % (Auto) Lymph % (Auto) [place] % (Auto) Eos % (Auto) Baso % (Auto) Seg Neutrophils % Band Neutrophils % Lymphocytes % (Manual) Atypical Lymphs % Monocytes % (Manual) Eosinophils % (Manual) Basophils % (Manual) Myelocytes % RBC Morphology Polychromasia Hypochromasia Anisocytosis ABG pH 7.45 ABG pCO2 29.8 L ABG pO2 78 L ABG HCO3 21 L ABG Total CO2 22 L ABG O2 Saturation 96 ABG Base Excess -3.0 L FiO2 2 Sodium Potassium Chloride Carbon Dioxide BUN Creatinine Estimated GFR BUN/Creatinine Ratio Glucose Lactate 1.4 Calcium Total Bilirubin AST ALT Alkaline Phosphatase Total Protein Albumin Globulin Albumin/Globulin Ratio Procalcitonin Assessment & Plan Plan: Plan: 1. Acute pulmonary embolism: Clinically stable. Full-dose Lovenox was initiated on the evening of 04/03/2018. Continue Lovenox 50 mg every 12 hr for 5-7 days and until INR is above 2.0. Started patient on warfarin 4 mg q.p.m. as of 04/04/2018. He should have INR checked on 04/04/2018. Patient can follow with Dr. Cedillo at [facility] for outpatient monitoring. He should complete 90 day duration of oral anticoagulant therapy. 2. Acute hypoxic respiratory failure: Resolved. Not currently on supplemental O2. Quality VTE Deep Vein Thrombosis/Pulmonary Embolism Present on Admission: No
--- NOTE | 2018-04-04 14:55 | P.PN_ITS ---
Subjective Interval history: Patient had acute dyspnea with drop in O2 sats last night. Stat CT angiogram revealed subsegmental pulmonary embolism. He has been on low- dose Lovenox prophylaxis postop. He was started on full-dose Lovenox. He is not feeling short of breath or having pleuritic chest pain this afternoon. Exam Vital Signs (past 8 hours): Vital Signs - 8 hr 3 04/04/18 08:29 04/04/18 11:16 04/04/18 12:00 Temperature 99.7 F H 98.2 F Pulse Rate 112 H 101 H Respiratory Rate 18 20 Blood Pressure 121/71 H 110/69 Pulse Oximetry 96 95 97 3 04/04/18 14:33 Temperature 97.6 F Pulse Rate Respiratory Rate 18 Blood Pressure 118/75 Pulse Oximetry 98 Pulse Oximetry 98 Fraction of Inspired Oxygen 30 Oxygen Delivery Method Nasal Cannula Oxygen Flow Rate 2 Narrative Exam Narrative: General: Thin male in no acute distress Lungs: Clear to auscultation Heart: Regular rhythm Abdomen: Open surgical wound healing by secondary intention Extremities: No calf edema Neurological: Alert and oriented, nonfocal Objective Labs Result Diagrams: 04/04/18 05:15 04/04/18 05:15 Labs: Laboratory Results - last 24 hr 04/04/18 04/04/18 04/04/18 05:15 05:15 05:15 WBC 14.1 H D RBC 3.33 L Hgb 9.6 L Hct 28.9 L MCV 86.9 MCH 28.8 MCHC 33.2 RDW 16.3 H Plt Count 440 H Neut % (Auto) Not Reportable Lymph % (Auto) Not Reportable [place] % (Auto) Not Reportable Eos % (Auto) Not Reportable Baso % (Auto) Not Reportable Seg Neutrophils % 43.0 Band Neutrophils % 23.0 H Lymphocytes % (Manual) 16.0 L Atypical Lymphs % 8.0 H Monocytes % (Manual) 3.0 Eosinophils % (Manual) 2.0 Basophils % (Manual) 1.0 Myelocytes % 4.0 H RBC Morphology Not Reportable Polychromasia Hypochromasia 1+ H Anisocytosis 2+ H ABG pH ABG pCO2 ABG pO2 ABG HCO3 ABG Total CO2 ABG O2 Saturation ABG Base Excess FiO2 Sodium 130 L Potassium 4.1 Chloride 99.0 Carbon Dioxide 22.0 BUN 10.0 Creatinine 0.40 L Estimated GFR > 60.0 BUN/Creatinine Ratio 25.0 H Glucose 145 H Lactate Calcium 7.1 L Total Bilirubin 0.4 AST 37 ALT 63 Alkaline Phosphatase 272 H D Total Protein 6.2 L Albumin 2.2 L Globulin 4.0 Albumin/Globulin Ratio 0.6 L Procalcitonin 0.17 04/04/18 04/04/18 05:15 08:31 WBC RBC Hgb Hct MCV MCH MCHC RDW Plt Count Neut % (Auto) Lymph % (Auto) [place] % (Auto) Eos % (Auto) Baso % (Auto) Seg Neutrophils % Band Neutrophils % Lymphocytes % (Manual) Atypical Lymphs % Monocytes % (Manual) Eosinophils % (Manual) Basophils % (Manual) Myelocytes % RBC Morphology Polychromasia Hypochromasia Anisocytosis ABG pH 7.45 ABG pCO2 29.8 L ABG pO2 78 L ABG HCO3 21 L ABG Total CO2 22 L ABG O2 Saturation 96 ABG Base Excess -3.0 L FiO2 2 Sodium Potassium Chloride Carbon Dioxide BUN Creatinine Estimated GFR BUN/Creatinine Ratio Glucose Lactate 1.4 Calcium Total Bilirubin AST ALT Alkaline Phosphatase Total Protein Albumin Globulin Albumin/Globulin Ratio Procalcitonin Assessment & Plan Plan: Plan: 1. Acute pulmonary embolism: Clinically stable. Full-dose Lovenox was initiated on the evening of 04/03/2018. Continue Lovenox 50 mg every 12 hr for 5-7 days and until INR is above 2.0. Started patient on warfarin 4 mg q.p.m. as of 04/04/2018. He should have INR checked on 04/04/2018. Patient can follow with Dr. Cedillo at [facility] for outpatient monitoring. He should complete 90 day duration of oral anticoagulant therapy. 2. Acute hypoxic respiratory failure: Resolved. Not currently on supplemental O2. Quality VTE Deep Vein Thrombosis/Pulmonary Embolism Present on Admission: No
[2018-04-04 15:14] LABS: Clostridium Difficile Tox PCR NEGATIVE for C. diff
--- NOTE | 2018-04-04 15:23 | PC.NURSE ---
Post-op: Pt slow to move this am. Required much enc to get oob and amb, then he sat in the chair for a couple of hours. Now back to bed. Stool spec obtained and sent to lab for c-diff, still awaiting results. Reviewed how to give lovenox and how to do dressing changes. Pt reports his mother will do dressing changes as well for him. May require HH at time of d/c. Cont w/poc.
[2018-04-04] MEDS: WARFARIN 2 MG TABLET 4 MG PO (16:46)
[2018-04-04] MEDS: SODIUM CHLORIDE 0.9% 500 ML 21 ML IV (16:47)
--- NOTE | 2018-04-04 18:51 | ST.IPIE ---
Current Diagnoses Sepsis, unspecified organism (03/22/18) Hypocalcemia (03/22/18) Hypokalemia (03/22/18) Chronic pulmonary edema (03/22/18) Acute postprocedural respiratory failure (03/22/18) Ulcerative colitis, unspecified, without complications (03/22/18) Perforation of intestine (nontraumatic) (03/22/18) Shortness of breath (03/22/18) Severe sepsis with septic shock (03/22/18) ST IP Initial Evaulation Report [employer] Clinical Swallow Evaluation Start: 04/04/18 18:30 Freq: Status: Active Protocol: Document 04/04/18 18:30 LNK (Rec: 04/04/18 18:50 LNK [email or web address]) Clinical Swallow Evaluation Session Time Visit Start Time 16:30 Visit Stop Time 17:00 Total Visit Minutes 30 Referral Referring Physician Mari Setting Assessment Location Acute Care Visit Type Note Type Initial Evaluation Patient Information Identification Type Name ID Wristband History Pt was observed by nursing to be having difficulty with swallowing thin liquids during his meals. Order received for swallowing assessment. Swallowing evaluation to r/o aspiration. pt has been in the hospital for several days. He was intubated following his surgery. See pt H&P for details. Chest xray (04/03/18) indicated : Lungs and pleura: No acute airspace opacities. Small right and trace left basal pleural effusions are present, causing bilateral lower lobe compressive atelectasis. PMH: Sepsis, unspecified organism ( 03/22/18) Hypocalcemia (03/22/18) Hypokalemia (03/22/18) Chronic pulmonary edema (03/22) Acute postprocedural respiratory failure (03/22/18) Ulcerative colitis, unspecified, without complications (03/22/18) Perforation of intestine ( nontraumatic) (03/22/18) Severe sepsis with septic shock (03/22/18) Subjective Observations pt in his bed eating dinner meal. Repositioned head of bed to 90 degrees and explained to pt need to be totally upright. Pt is currently on a full liquid diet with thin liquids Evaluation Liquids Trialed Ice Chips Thin [place] Administration Type Tea Spoon Cup Single Sip Controlled Cup Sip Straw Self-Feeding Oral Impairment WFL Oral Strategies Upright at 90 degrees Oral Phase Comments Oral phase as assessed with current diet is WFL. Pt has full braces on teeth upper and lower Pharyngeal Impairment Mildly Impaired Pharyngeal Phase Strategies Sitting Upright (90 deg) Small Bites and Sips Pharyngeal Phase Comments Pt presented with weakness and difficulty with coughing. He has an incentive spirometer at bedside and was encouraged to use it per instructions. Pt was observed to have a consistent delayed cough following ice and thin liquid trials. There was no noted cough following nectar thick trials. When asked, the pt noted that he seems to be coughing more when he is eating than other times. No wet voicing observed. Suspect silent aspiration with a delayed cough response. Solids were not trialed secondary to diet restrictions . Findings Dysphagia Type Pharyngeal phase Rehabilitation Potential Good Impressions Pt presented with delayed non productive cough with thin liquids and ice chips. No cough was observed with nectar thick liquids. Suspect silent aspiration secondary to prolonged intubation and overall weakness Diet Recommendations Liquids Order [place] Diet Order Full Liquids Medication Recommendations As Tolerated Aspiration Precautions Recommended Precautions Upright at 90 Degrees Frequent Rest Periods Small Bites/Sips Treatment Plan Placement Recommendations after Other Discharge Appropriate for Therapy Yes Therapy Recommendations Swallowing therapy 1-2x/day while inpatient Dysphagia Goals Pt will safely tolerate the least-restrictive diet without s/sx aspirations. Pt will improve swallow safety with implementations of safe swallow strategies [employer] Follow Up while inpatient status
[2018-04-04] MEDS: FAT EMULSIONS 50 GM/250 ML EMULSION IV (19:00)
[2018-04-04] MEDS: [UNRECOGNIZED DRUG - OTHER] IV (19:01)
[2018-04-04] MEDS: CALCIUM IV (19:01)
[2018-04-04] MEDS: DEXT IV (19:01)
[2018-04-04] MEDS: LYTES IV (19:01)
[2018-04-04] MEDS: SODIUM CHLORIDE IV (19:01)
--- NOTE | 2018-04-04 20:27 | RT ---
BREATH SOUNDS ARE CLEAR. O2 SAT ON RA NOTED AT 98%. RR = 16. BRONCHODILATOR NOT NEEDED AT THIS TIME.
[2018-04-05] VITALS (7 sets, daily range): BP systolic 111–128; BP diastolic 66–70; PULSE 96–112; RESP 16–24; TEMP 36.8–37.5; O2SAT 93–99
[2018-04-05] MEDS: LORazepam 2 MG/ML SYRINGE 1 MG IV (01:02)
[2018-04-05 07:17] LABS: Hematocrit 28.4 % (41-53); Hemoglobin 9.4 g/dL (13.5-17.5); Mean Corpuscular HGB Conc 33.3 % (30-36); Mean Corpuscular Hemoglobin 28.8 PG (26-34); Mean Corpuscular Volume 86.6 fL (80-100); Platelet Count 510 X10^3/uL (150-400); Red Blood Cell Count 3.28 X10^6/uL (4.5-5.9); Red Cell Distribution Width 16.7 % (11.6-14.8); White Blood Cell Count 17.1 X10^3/uL (4.5-11.0)
[2018-04-05 07:24] LABS: Magnesium 2.2 mg/dL (1.6-2.3)
[2018-04-05] MEDS: HYDROMORPHONE PCA 6 MG/30 ML PCA.VIAL IV ×2 (07:25→21:31)
[2018-04-05] MEDS: PANTOPRAZOLE 40 MG VIAL IV (10:25)
[2018-04-05] MEDS: TIGECYCLINE 100 MG in SODIUM CHLORIDE 0.9% 100 ML IV (10:25)
[2018-04-05] MEDS: ENOXAPARIN 60 MG/0.6 ML SYRINGE 50 MG SUBCUT ×2 (10:26→20:09)
[2018-04-05] MEDS: MULTIVIT,CALC,MINS/IRON/FOLIC 1 TABLET 1 TAB PO (10:27)
[2018-04-05] MEDS: SERTRALINE 50 MG TABLET PO (10:27)
[2018-04-05] MEDS: ARIPiprazole 10 MG TABLET 5 MG PO (11:06)
[2018-04-05 11:20] LABS: Total Cells Counted 100
[2018-04-05 11:27] LABS: Neutrophils Absolute Manual 11115 /uL (3000-5900)
[2018-04-05 11:29] LABS: Anisocytosis 1+
--- NOTE | 2018-04-05 11:46 | PM.PN.1 ---
Subjective Interval history: Patient denies dyspnea or pleuritic chest pain. He has been depressed, back on sertraline but not Abilify routine. Exam Vital Signs (past 8 hours): Vital Signs - 8 hr 04/05/18 05:26 04/05/18 08:30 Temperature 98.3 F 98.5 F Pulse Rate 105 H 111 H Respiratory Rate 16 16 Blood Pressure 128/70 H 111/70 Pulse Oximetry 94 93 Pulse Oximetry 93 Fraction of Inspired Oxygen 30 Oxygen Delivery Method Room Air Oxygen Flow Rate 2 Objective Labs Result Diagrams: 04/05/18 07:05 04/04/18 05:15 Labs: Laboratory Results - last 24 hr 04/04/18 04/05/18 04/05/18 13:45 07:05 07:05 WBC 17.1 H RBC 3.28 L Hgb 9.4 L Hct 28.4 L MCV 86.6 MCH 28.8 MCHC 33.3 RDW 16.7 H Plt Count 510 H Total Counted 100 Seg Neutrophils % 47.0 Band Neutrophils % 18.0 H Lymphocytes % (Manual) 23.0 L Atypical Lymphs % 1.0 H Monocytes % (Manual) 5.0 Eosinophils % (Manual) Not Reportable Basophils % (Manual) 2.0 H Metamyelocytes % 4.0 H Neutrophils # (Manual) [id number] H RBC Morphology Not Reportable Anisocytosis 1+ H Phosphorus 4.0 Magnesium 2.2 C. difficile Tox (PCR) Negative for c. diff Assessment & Plan Plan: Plan: 1. Acute pulmonary embolism: Clinically stable. Full-dose Lovenox was initiated on the evening of 04/03/2018. Continue Lovenox 50 mg every 12 hr for 5-7 days and until INR is above 2.0. Started patient on warfarin 4 mg q.p.m. as of 04/04/2018. Ordered INR check on 04/07/2018. Patient can follow with Dr. Cedillo at [facility] for outpatient monitoring. He should complete 90 day duration of oral anticoagulant therapy. 2. Acute hypoxic respiratory failure: Resolved. Not currently on supplemental O2. 3. Depression: Resume Abilify 5 mg daily. He is already back on sertraline 50 mg daily. 4. 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 Also on TPN. Managed by surgery. 5. Septic shock: Resolved. Antibiotics per surgery. Quality VTE Deep Vein Thrombosis/Pulmonary Embolism Present on Admission: No
--- NOTE | 2018-04-05 11:50 | P.PN_ITS ---
Subjective Interval history: Patient denies dyspnea or pleuritic chest pain. He has been depressed, back on sertraline but not Abilify routine. Exam Vital Signs (past 8 hours): Vital Signs - 8 hr 3 04/05/18 05:26 04/05/18 08:30 Temperature 98.3 F 98.5 F Pulse Rate 105 H 111 H Respiratory Rate 16 16 Blood Pressure 128/70 H 111/70 Pulse Oximetry 94 93 Pulse Oximetry 93 Fraction of Inspired Oxygen 30 Oxygen Delivery Method Room Air Oxygen Flow Rate 2 Objective Labs Result Diagrams: 04/05/18 07:05 04/04/18 05:15 Labs: Laboratory Results - last 24 hr 04/04/18 04/05/18 04/05/18 13:45 07:05 07:05 WBC 17.1 H RBC 3.28 L Hgb 9.4 L Hct 28.4 L MCV 86.6 MCH 28.8 MCHC 33.3 RDW 16.7 H Plt Count 510 H Total Counted 100 Seg Neutrophils % 47.0 Band Neutrophils % 18.0 H Lymphocytes % (Manual) 23.0 L Atypical Lymphs % 1.0 H Monocytes % (Manual) 5.0 Eosinophils % (Manual) Not Reportable Basophils % (Manual) 2.0 H Metamyelocytes % 4.0 H Neutrophils # (Manual) [id number] H RBC Morphology Not Reportable Anisocytosis 1+ H Phosphorus 4.0 Magnesium 2.2 C. difficile Tox (PCR) Negative for c. diff Assessment & Plan Plan: Plan: 1. Acute pulmonary embolism: Clinically stable. Full-dose Lovenox was initiated on the evening of 04/03/2018. Continue Lovenox 50 mg every 12 hr for 5-7 days and until INR is above 2.0. Started patient on warfarin 4 mg q.p.m. as of 04/04/2018. Ordered INR check on 04/07/2018. Patient can follow with Dr. Cedillo at [facility] for outpatient monitoring. He should complete 90 day duration of oral anticoagulant therapy. 2. Acute hypoxic respiratory failure: Resolved. Not currently on supplemental O2. 3. Depression: Resume Abilify 5 mg daily. He is already back on sertraline 50 mg daily. 4. 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 Also on TPN. Managed by surgery. 5. Septic shock: Resolved. Antibiotics per surgery. Quality VTE Deep Vein Thrombosis/Pulmonary Embolism Present on Admission: No
[2018-04-05] MEDS: INSULIN ASPART 100 UNIT/ML INSULN PEN SUBCUT (12:23)
[2018-04-05] MEDS: metroNIDAZOLE 500 MG/100 ML PIGGYBACK 100 MG IV ×3 (12:23→21:31)
--- NOTE | 2018-04-05 12:38 | PM.PNPO.1 ---
Subjective Interval history: Patient feeling pretty good today. Not much appetite. Not having any pain of any significance. Wants to go home. Said he was in the hospital a month before he came here. Also stated that his white blood cell count runs high. Exam Vital Signs (past 8 hours): Vital Signs - 8 hr 04/05/18 05:26 04/05/18 08:30 Temperature 98.3 F 98.5 F Pulse Rate 105 H 111 H Respiratory Rate 16 16 Blood Pressure 128/70 H 111/70 Pulse Oximetry 94 93 Pulse Oximetry 93 Fraction of Inspired Oxygen 30 Oxygen Delivery Method Room Air Oxygen Flow Rate 2 Narrative Exam Narrative: Operative in no apparent distress. Lungs clear to auscultation. The wound looks fine. I sharply removed multiple areas of tissue. Some pulled away without difficulty. There is still small amount of necrotic material that is densely adherent left. I thought I would let this loosen/separate before attempting to remove it. Objective Labs Result Diagrams: 04/05/18 07:05 04/04/18 05:15 Labs: Laboratory Results - last 24 hr 04/04/18 04/05/18 04/05/18 13:45 07:05 07:05 WBC 17.1 H RBC 3.28 L Hgb 9.4 L Hct 28.4 L MCV 86.6 MCH 28.8 MCHC 33.3 RDW 16.7 H Plt Count 510 H Total Counted 100 Seg Neutrophils % 47.0 Band Neutrophils % 18.0 H Lymphocytes % (Manual) 23.0 L Atypical Lymphs % 1.0 H Monocytes % (Manual) 5.0 Eosinophils % (Manual) Not Reportable Basophils % (Manual) 2.0 H Metamyelocytes % 4.0 H Neutrophils # (Manual) [id number] H RBC Morphology Not Reportable Anisocytosis 1+ H Phosphorus 4.0 Magnesium 2.2 C. difficile Tox (PCR) Negative for c. diff Assessment & Plan Post-op Postoperative Postoperative status: doing well (Feeling okay. Still not eating well.) and other (Removed it tissue. Restarted broad-spectrum antibiotics due to rising white blood cell count with left shift. Afebrile) Postoperative plan: other (Continue TPN. Continue to encourage p.o..) Time Spent With Patient less than 15 minutes Quality VTE Deep Vein Thrombosis/Pulmonary Embolism Present on Admission: No
--- NOTE | 2018-04-05 12:43 | P.PN_ITS ---
Subjective Interval history: Patient feeling pretty good today. Not much appetite. Not having any pain of any significance. Wants to go home. Said he was in the hospital a month before he came here. Also stated that his white blood cell count runs high. Exam Vital Signs (past 8 hours): Vital Signs - 8 hr 3 04/05/18 05:26 04/05/18 08:30 Temperature 98.3 F 98.5 F Pulse Rate 105 H 111 H Respiratory Rate 16 16 Blood Pressure 128/70 H 111/70 Pulse Oximetry 94 93 Pulse Oximetry 93 Fraction of Inspired Oxygen 30 Oxygen Delivery Method Room Air Oxygen Flow Rate 2 Narrative Exam Narrative: Operative in no apparent distress. Lungs clear to auscultation. The wound looks fine. I sharply removed multiple areas of tissue. Some pulled away without difficulty. There is still small amount of necrotic material that is densely adherent left. I thought I would let this loosen/separate before attempting to remove it. Objective Labs Result Diagrams: 04/05/18 07:05 04/04/18 05:15 Labs: Laboratory Results - last 24 hr 04/04/18 04/05/18 04/05/18 13:45 07:05 07:05 WBC 17.1 H RBC 3.28 L Hgb 9.4 L Hct 28.4 L MCV 86.6 MCH 28.8 MCHC 33.3 RDW 16.7 H Plt Count 510 H Total Counted 100 Seg Neutrophils % 47.0 Band Neutrophils % 18.0 H Lymphocytes % (Manual) 23.0 L Atypical Lymphs % 1.0 H Monocytes % (Manual) 5.0 Eosinophils % (Manual) Not Reportable Basophils % (Manual) 2.0 H Metamyelocytes % 4.0 H Neutrophils # (Manual) 46686 H RBC Morphology Not Reportable Anisocytosis 1+ H Phosphorus 4.0 Magnesium 2.2 C. difficile Tox (PCR) Negative for c. diff Assessment & Plan Post-op Postoperative Postoperative status: doing well (Feeling okay. Still not eating well.) and other (Removed it tissue. Restarted broad-spectrum antibiotics due to rising white blood cell count with left shift. Afebrile) Postoperative plan: other (Continue TPN. Continue to encourage p.o..) Time Spent With Patient less than 15 minutes Quality VTE Deep Vein Thrombosis/Pulmonary Embolism Present on Admission: No
--- NOTE | 2018-04-05 14:54 | CM.DPC ---
DCP: continued: case received again and last few days reviewed. Note that hospitalists are again following case along with general surgical team. Dr. Cedillo's note of 04/04 seems to indicate he will follow pt after d/c as PCP at [facility]. Will hope to confirm same with him. Pt will need a PCP in order to have HH services at d/c. Met with pt and reintroduced self and DCP role. He is found reclining in bedside chair, looks frail and voice not strong when he speaks. He confirms his goal remains home to his mother's house for further recovery when stable for same. VACUUM REPAIRER is seeing him for swallow issues in addition to curling machine operator. TPN running. Pt says it's just so much food they are wanting me to eat..... Pt is doing well with PT and last PT note shows him up with PT, FWW, CGA to 250 feet. Has new dx of PE as of yesterday. IV antibiotic medications have been changed. Wound vac is d/c'd for now with surgeons doing wet/dry and debriding wound. tetryl boiling tub operator Paola Moon continues to follow for ostomy management and teach. Anticipate need for HH RN/OT/PT/BARREL LINER/VACUUM REPAIRER at d/c and ([employer] if insurance allows) Pt has been restarted on his antidepressant medication. Discussed case today with colleague MINA/GERONIMO Guardado who saw him early in the stay for mental health assessment and is very agreeable to seeing him again to check in again, likely Sunday 04/08. P: continue to follow as pt continues his slow road to recovery. Will check in with pt again early this week and also reach out again to his mother ChiquitaJuancho
--- NOTE | 2018-04-05 16:23 | PT.IPTN ---
Current Diagnoses Sepsis, unspecified organism (03/22/18) Hypocalcemia (03/22/18) Hypokalemia (03/22/18) Other pulmonary embolism without acute cor pulmonale (03/22/18) Chronic pulmonary edema (03/22/18) Acute postprocedural respiratory failure (03/22/18) Ulcerative colitis, unspecified, without complications (03/22/18) Perforation of intestine (nontraumatic) (03/22/18) Shortness of breath (03/22/18) Severe sepsis with septic shock (03/22/18) Physical Therapy Treatment Note M2 PT-IP Current Condition Start: 03/28/18 17:17 Freq: NEEDED Status: Active Protocol: Document 04/01/18 15:10 RCC (Rec: 04/01/18 16:30 RCC [id number]) Physical Therapy Current Condition Current Condition Evaluation Date 03/28/18 Treatment Diagnosis post-op colectomy for perforated bowel Onset Date 03/22/18 Post Operative Precautions Abdominal Surgery Precautions Log Roll Lifting Restrictions Gait Belt above Incisional Area Other Precautions contact precautions: 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 He was up with nursing earlier in the hallway ambulating. Will check back with pt in a.m.
[2018-04-05] MEDS: WARFARIN 2 MG TABLET 4 MG PO (16:31)
[2018-04-05] MEDS: ONDANSETRON 4 MG/2 ML VIAL IV (16:31)
[2018-04-05] MEDS: FAT EMULSIONS 50 GM/250 ML EMULSION IV (18:07)
[2018-04-05] MEDS: LYTES IV (18:08)
[2018-04-05] MEDS: SODIUM CHLORIDE IV (18:08)
[2018-04-05] MEDS: CALCIUM IV (18:08)
[2018-04-05] MEDS: [UNRECOGNIZED DRUG - OTHER] IV (18:08)
[2018-04-05] MEDS: DEXT IV (18:08)
[2018-04-05] MEDS: TIGECYCLINE 50 MG in SODIUM CHLORIDE 0.9% 100 ML 200 ML IV (20:10)
--- NOTE | 2018-04-05 20:10 | RT ---
BREATH SOUNDS ARE CLEAR BILAT. O2 SAT ON RA NOTED AT 97%. RR = 16. BRONCHODILATOR NOT NEEDED AT THIS TIME.
[2018-04-05] MEDS: SODIUM CHLORIDE 0.9% 500 ML 21 ML IV (20:11)
[2018-04-06] VITALS (10 sets, daily range): BP systolic 108–119; BP diastolic 64–72; PULSE 96–109; RESP 14–24; TEMP 36.2–37.2; O2SAT 96–98
[2018-04-06] MEDS: metroNIDAZOLE 500 MG/100 ML PIGGYBACK 100 MG IV ×4 (05:12→21:36)
[2018-04-06] MEDS: HYDROMORPHONE PCA 6 MG/30 ML PCA.VIAL IV (05:32)
[2018-04-06 05:37] LABS: Hematocrit 30.1 % (41-53); Hemoglobin 9.8 g/dL (13.5-17.5); Mean Corpuscular HGB Conc 32.5 % (30-36); Mean Corpuscular Hemoglobin 28.4 PG (26-34); Mean Corpuscular Volume 87.3 fL (80-100); Platelet Count 632 X10^3/uL (150-400); Red Blood Cell Count 3.45 X10^6/uL (4.5-5.9); Red Cell Distribution Width 16.8 % (11.6-14.8); White Blood Cell Count 25.8 X10^3/uL (4.5-11.0)
[2018-04-06] MEDS: ONDANSETRON 4 MG/2 ML VIAL IV ×2 (05:59→16:23)
[2018-04-06 06:38] LABS: Total Cells Counted 100
[2018-04-06 06:39] LABS: Neutrophils Absolute Manual 17802 /uL (3000-5900)
[2018-04-06 06:45] LABS: Anisocytosis 2+; Hypochromasia 1+
[2018-04-06] MEDS: SERTRALINE 50 MG TABLET PO (08:51)
[2018-04-06] MEDS: ENOXAPARIN 60 MG/0.6 ML SYRINGE 50 MG SUBCUT ×2 (08:51→21:37)
[2018-04-06] MEDS: PANTOPRAZOLE 40 MG VIAL IV (08:51)
[2018-04-06] MEDS: ARIPiprazole 10 MG TABLET 5 MG PO (08:51)
[2018-04-06] MEDS: TIGECYCLINE 50 MG in SODIUM CHLORIDE 0.9% 100 ML 200 ML IV ×2 (08:51→21:37)
[2018-04-06] MEDS: MULTIVIT,CALC,MINS/IRON/FOLIC 1 TABLET 1 TAB PO (08:52)
--- NOTE | 2018-04-06 11:02 | ST.IPTN ---
Addendum entered and electronically signed by Margarito Candelario 04/06/18 11:05: Attempted to see patient for dysphagia therapy this morning. Patient refused PO trials. Education provided regarding importance of oral care to minimize risk of aspiration pneumonia. Original Note: Attempted to drr patient for dysphagia therapy this morning. Patient refused PO trials. Education provided regarding importance of oral care to minimize risk of aspiration pneumonia.
--- NOTE | 2018-04-06 11:40 | PM.PN.1 ---
Subjective Interval history: Denies pain. Denies fever or chills. Appetite remains poor. Desires more solid food but understands that he is at aspiration risk based on swallowing evaluation. Tolerating some thickened liquids. Exam Vital Signs (past 8 hours): Vital Signs - 8 hr 04/06/18 06:46 04/06/18 08:00 Temperature 98.1 F 97.1 F L Pulse Rate 103 H 96 H Respiratory Rate 22 14 Blood Pressure 115/71 109/64 Pulse Oximetry 97 98 Pulse Oximetry 98 Fraction of Inspired Oxygen 30 Oxygen Delivery Method Room Air Oxygen Flow Rate 2 Narrative Exam Narrative: Remains afebrile. Lying in bed at the time of my visit. No acute distress. Denies chest pain or shortness of breath. No significant productive cough. Still intermittently tachycardic but sinus rhythm. Adequate urine output Stable on room air Ileostomy output continues to be consistent but mostly liquid. Few rhonchi bilaterally Abdomen soft and much less distended. Appropriately tender. I changed his dressing at the bedside which she tolerated well. Wound bed is clean and intact although the suture line has somewhat. No obvious hernia. He is beginning to have some early granulation but it is not yet significant. No evidence of fistula. Skin edges are viable. Extremities show no clubbing, cyanosis, or edema. However, he has significant evidence of protein malnutrition and muscle wasting. Objective Labs Result Diagrams: 04/06/18 05:05 04/04/18 05:15 Labs: Laboratory Results - last 24 hr 04/06/18 05:05 WBC 25.8 H D RBC 3.45 L Hgb 9.8 L Hct 30.1 L MCV 87.3 MCH 28.4 MCHC 32.5 RDW 16.8 H Plt Count 632 H Total Counted 100 Seg Neutrophils % 52.0 Band Neutrophils % 17.0 H Lymphocytes % (Manual) 14.0 L Monocytes % (Manual) 7.0 Eosinophils % (Manual) 1.0 L Basophils % (Manual) 1.0 Metamyelocytes % 1.0 H Myelocytes % 7.0 H Neutrophils # (Manual) 37533 H Differential Comment Hi Lo Driver Plt Morphology Comment * RBC Morphology Not Reportable Hypochromasia 1+ H Anisocytosis 2+ H Assessment & Plan Plan: Plan: 43-year-old male with multiple significant issues following emergent subtotal colectomy for perforated toxic megacolon 2 weeks ago now. His postoperative course was complicated by a severe protein calorie malnutrition, aspiration risk, overall debilitation for muscle wasting, and recent pulmonary embolism now being anticoagulated. Continue warfarin. Agree with plan 3 month course as this is a provoked event. Continue intravenous antibiotics currently. White blood cell count continues to increase but no clear infectious source. Continue diet as per speech therapy. Continue speech rehabilitation. Continue physical therapy and occupational therapy. Wound care as above. I had a lengthy discussion with the patient regarding his long-term needs. In my opinion, he requires a assisted facility for some period of time in order to accomplish physical therapy, occupational therapy, speech therapy, wound care, ileostomy care, ileostomy education, and total parental nutrition. Ideally we would like to supplement his nutritional needs with enteral feedings, but he has no enteral access. Placement of the PEG tube would be undue risk complications given his wound issues and recent colectomy. Again, explained this to him in detail. He may require port placement in order to facilitate long-term TPN until such time he is able to support himself with adequate oral nutrition. All questions were answered to his satisfaction, and he voiced understanding. He was agreeable to possible SNF. Case discussed with discharge coordinators. Orders written. Quality VTE Deep Vein Thrombosis/Pulmonary Embolism Present on Admission: No
--- NOTE | 2018-04-06 11:47 | P.PN_ITS ---
Subjective Interval history: Denies pain. Denies fever or chills. Appetite remains poor. Desires more solid food but understands that he is at aspiration risk based on swallowing evaluation. Tolerating some thickened liquids. Exam Vital Signs (past 8 hours): Vital Signs - 8 hr 3 04/06/18 06:46 04/06/18 08:00 Temperature 98.1 F 97.1 F L Pulse Rate 103 H 96 H Respiratory Rate 22 14 Blood Pressure 115/71 109/64 Pulse Oximetry 97 98 Pulse Oximetry 98 Fraction of Inspired Oxygen 30 Oxygen Delivery Method Room Air Oxygen Flow Rate 2 Narrative Exam Narrative: Remains afebrile. Lying in bed at the time of my visit. No acute distress. Denies chest pain or shortness of breath. No significant productive cough. Still intermittently tachycardic but sinus rhythm. Adequate urine output Stable on room air Ileostomy output continues to be consistent but mostly liquid. Few rhonchi bilaterally Abdomen soft and much less distended. Appropriately tender. I changed his dressing at the bedside which she tolerated well. Wound bed is clean and intact although the suture line has somewhat. No obvious hernia. He is beginning to have some early granulation but it is not yet significant. No evidence of fistula. Skin edges are viable. Extremities show no clubbing, cyanosis, or edema. However, he has significant evidence of protein malnutrition and muscle wasting. Objective Labs Result Diagrams: 04/06/18 05:05 04/04/18 05:15 Labs: Laboratory Results - last 24 hr 04/06/18 05:05 WBC 25.8 H D RBC 3.45 L Hgb 9.8 L Hct 30.1 L MCV 87.3 MCH 28.4 MCHC 32.5 RDW 16.8 H Plt Count 632 H Total Counted 100 Seg Neutrophils % 52.0 Band Neutrophils % 17.0 H Lymphocytes % (Manual) 14.0 L Monocytes % (Manual) 7.0 Eosinophils % (Manual) 1.0 L Basophils % (Manual) 1.0 Metamyelocytes % 1.0 H Myelocytes % 7.0 H Neutrophils # (Manual) 26270 H Differential Comment Paediatric Surgeon Plt Morphology Comment * RBC Morphology Not Reportable Hypochromasia 1+ H Anisocytosis 2+ H Assessment & Plan Plan: Plan: 43-year-old male with multiple significant issues following emergent subtotal colectomy for perforated toxic megacolon 2 weeks ago now. His postoperative course was complicated by a severe protein calorie malnutrition, aspiration risk , overall debilitation for muscle wasting, and recent pulmonary embolism now being anticoagulated. Continue warfarin. Agree with plan 3 month course as this is a provoked event. Continue intravenous antibiotics currently. White blood cell count continues to increase but no clear infectious source. Continue diet as per speech therapy. Continue speech rehabilitation. Continue physical therapy and occupational therapy. Wound care as above. I had a lengthy discussion with the patient regarding his long-term needs. In my opinion, he requires a correction facility for some period of time in order to accomplish physical therapy, occupational therapy, speech therapy, wound care, ileostomy care, ileostomy education, and total parental nutrition. Ideally we would like to supplement his nutritional needs with enteral feedings , but he has no enteral access. Placement of the PEG tube would be undue risk complications given his wound issues and recent colectomy. Again, explained this to him in detail. He may require port placement in order to facilitate long-term TPN until such time he is able to support himself with adequate oral nutrition. All questions were answered to his satisfaction, and he voiced understanding. He was agreeable to possible SNF. Case discussed with discharge coordinators. Orders written. Quality VTE Deep Vein Thrombosis/Pulmonary Embolism Present on Admission: No
--- NOTE | 2018-04-06 12:51 | PM.PN.1 ---
Subjective Interval history: Denies pain. Denies fever or chills. Appetite remains poor. Tolerating some thickened liquids. Exam Vital Signs (past 8 hours): Vital Signs - 8 hr 04/06/18 06:46 04/06/18 08:00 Temperature 98.1 F 97.1 F L Pulse Rate 103 H 96 H Respiratory Rate 22 14 Blood Pressure 115/71 109/64 Pulse Oximetry 97 98 Pulse Oximetry 98 Fraction of Inspired Oxygen 30 Oxygen Delivery Method Room Air Oxygen Flow Rate 0 Narrative Exam Narrative: GENERAL: Thin middle-aged man in no acute distress. HEENT: Head normocephalic, atraumatic. Eyes pupils equal round NECK: Supple, no JVD, CHEST: Breath sounds equal bilaterally, no wheezes rales or rhonchi. CARDIAC: Regular rate and rhythm without murmurs, rubs or gallops. ABDOMEN: Soft, nontender. No guarding or rebound. Ostomy has normal output. Anterior abdominal wound was dressed and dressing EXTREMITIES: Severe muscle atrophy in upper and lower extremities, no clubbing or edema. NEUROLOGICAL: Alert and oriented; Normal muscle strength. SKIN: Warm, dry, no petechiae, no rashes or lesions. Objective Labs Result Diagrams: 04/06/18 05:05 04/04/18 05:15 Labs: Laboratory Results - last 24 hr 04/06/18 05:05 WBC 25.8 H D RBC 3.45 L Hgb 9.8 L Hct 30.1 L MCV 87.3 MCH 28.4 MCHC 32.5 RDW 16.8 H Plt Count 632 H Total Counted 100 Seg Neutrophils % 52.0 Band Neutrophils % 17.0 H Lymphocytes % (Manual) 14.0 L Monocytes % (Manual) 7.0 Eosinophils % (Manual) 1.0 L Basophils % (Manual) 1.0 Metamyelocytes % 1.0 H Myelocytes % 7.0 H Neutrophils # (Manual) 70272 H Differential Comment Receiving Associate Store Plt Morphology Comment * RBC Morphology Not Reportable Hypochromasia 1+ H Anisocytosis 2+ H Assessment & Plan Plan: Plan: 1. Acute pulmonary embolism: Clinically stable. Full-dose Lovenox was initiated on the evening of 04/03/2018. Continue Lovenox 50 mg every 12 hr for 5-7 days and until INR is above 2.0. Started patient on warfarin 4 mg q.p.m. as of 04/04/2018. Ordered INR check on 04/07/2018. Patient can follow with Dr. Cedillo at [facility] for outpatient monitoring. He should complete 90 day duration of oral anticoagulant therapy. 2. Acute hypoxic respiratory failure: Resolved. Not currently on supplemental O2. 3. Depression: Resume Abilify 5 mg daily. He is already back on sertraline 50 mg daily. 4. 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 Taking food by mouth. Also on TPN. Managed by surgery. 5. Septic shock: Resolved. Antibiotics per surgery. 6. Severe protein calorie malnutrition secondary to acute on chronic illness: He is on TPN for nutritional support. Encourage oral intake. Continue monitor his nutritional status. 7. Dysphagia: Likely secondary to muscle weakness. Followed by speech pathology. He is currently on nectar thick liquid. 8. Disposition: I have discussed discharge planning with outpatient case manager. He will be a good candidate for long-term acute care facility due to requiring TPN for minimum of a month for nutritional support and wound care for the abdominal wound and intensive PT and OT treatments. Quality VTE Deep Vein Thrombosis/Pulmonary Embolism Present on Admission: No
--- NOTE | 2018-04-06 13:00 | P.PN_ITS ---
Subjective Interval history: Denies pain. Denies fever or chills. Appetite remains poor. Tolerating some thickened liquids. Exam Vital Signs (past 8 hours): Vital Signs - 8 hr 3 04/06/18 06:46 04/06/18 08:00 Temperature 98.1 F 97.1 F L Pulse Rate 103 H 96 H Respiratory Rate 22 14 Blood Pressure 115/71 109/64 Pulse Oximetry 97 98 Pulse Oximetry 98 Fraction of Inspired Oxygen 30 Oxygen Delivery Method Room Air Oxygen Flow Rate 0 Narrative Exam Narrative: GENERAL: Thin middle-aged man in no acute distress. HEENT: Head normocephalic, atraumatic. Eyes pupils equal round NECK: Supple, no JVD, CHEST: Breath sounds equal bilaterally, no wheezes rales or rhonchi. CARDIAC: Regular rate and rhythm without murmurs, rubs or gallops. ABDOMEN: Soft, nontender. No guarding or rebound. Ostomy has normal output. Anterior abdominal wound was dressed and dressing EXTREMITIES: Severe muscle atrophy in upper and lower extremities, no clubbing or edema. NEUROLOGICAL: Alert and oriented; Normal muscle strength. SKIN: Warm, dry, no petechiae, no rashes or lesions. Objective Labs Result Diagrams: 04/06/18 05:05 04/04/18 05:15 Labs: Laboratory Results - last 24 hr 04/06/18 05:05 WBC 25.8 H D RBC 3.45 L Hgb 9.8 L Hct 30.1 L MCV 87.3 MCH 28.4 MCHC 32.5 RDW 16.8 H Plt Count 632 H Total Counted 100 Seg Neutrophils % 52.0 Band Neutrophils % 17.0 H Lymphocytes % (Manual) 14.0 L Monocytes % (Manual) 7.0 Eosinophils % (Manual) 1.0 L Basophils % (Manual) 1.0 Metamyelocytes % 1.0 H Myelocytes % 7.0 H Neutrophils # (Manual) 35256 H Differential Comment Stone Dresser Plt Morphology Comment * RBC Morphology Not Reportable Hypochromasia 1+ H Anisocytosis 2+ H Assessment & Plan Plan: Plan: 1. Acute pulmonary embolism: Clinically stable. Full-dose Lovenox was initiated on the evening of 04/03/2018. Continue Lovenox 50 mg every 12 hr for 5-7 days and until INR is above 2.0. Started patient on warfarin 4 mg q.p.m. as of 04/04/2018. Ordered INR check on 04/07/2018. Patient can follow with Dr. Cedillo at [facility] for outpatient monitoring. He should complete 90 day duration of oral anticoagulant therapy. 2. Acute hypoxic respiratory failure: Resolved. Not currently on supplemental O2. 3. Depression: Resume Abilify 5 mg daily. He is already back on sertraline 50 mg daily. 4. 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 Taking food by mouth. Also on TPN. Managed by surgery. 5. Septic shock: Resolved. Antibiotics per surgery. 6. Severe protein calorie malnutrition secondary to acute on chronic illness: He is on TPN for nutritional support. Encourage oral intake. Continue monitor his nutritional status. 7. Dysphagia: Likely secondary to muscle weakness. Followed by speech pathology. He is currently on nectar thick liquid. 8. Disposition: I have discussed discharge planning with case supervisor. He will be a good candidate for long-term acute care facility due to requiring TPN for minimum of a month for nutritional support and wound care for the abdominal wound and intensive PT and OT treatments. Quality VTE Deep Vein Thrombosis/Pulmonary Embolism Present on Admission: No
--- NOTE | 2018-04-06 13:10 | DIET.PN ---
Addendum entered by Bindu Salcedo 04/06/18 13:50: RD had previously recommended custom TPN with 800 mL D50W (400g dextrose); however, considering pt's BG is consistently in the 140-145 range, now recommend keeping daily dextrose intake at 250g (same as what pt is getting on current TPN). Also recommend continuing 250mL QD of 20% lipid emulsion. This will bring pt's total daily calories to 1750. May Ziegler, Stereo Compiler Bindu Salcedo, [facility] Original Note: Screened pt this morning to monitor intake, wt changes over wknd. Wt down slightly (0.4 kg) after being relatively steady at 52.7 most of last week. PO intake remains extremely poor - pt complains that Ensure Surgery is too sweet for him. RDs considering fortifying pt's meals (soups, etc - i.e. non-sweet foods) with Beneprotein supplement. RDs are very concerned that his current protein intake is too low to support improvement of severe PCM and cachexia in this pt. Understand EN feeding is not an option, as additional surgery considered too risky at this time. We had hoped that TPN + Ensure Surg would provide enough protein, but since his PO intake remains close to zero, strongly recommend changing him to custom TPN formula which will provide ~100g AA QD. Calculated nutrition needs / recommended TPN formula for this pt: 500mL D50W and 1000mL 10% AA, which will provide 1250 kcal, 250g dextrose, and 100g protein. May Ziegler, leadership program internship
--- NOTE | 2018-04-06 13:21 | ST.IPTN ---
[employer] Dysphagia Treatment [employer] Dysphagia Treatment Start: 04/06/18 13:05 Freq: Status: Active Protocol: Document 04/06/18 13:06 [facility] (Rec: 04/06/18 13:20 [facility] [id number]) Dysphagia Treatment Session Time Visit Start Time 12:10 Visit Stop Time 13:00 Total Visit Minutes 50 Setting Assessment Location Acute Care Visit Type Note Type Treatment Note Next Note Type Next Note Type Treatment Note Patient Information Identification Type Name Date of ID Wristband Subjective Observations Patient resting, reclined in bed, with no family present. No complaints of pain pre treatment. Patient exhibited significant dry mouth with dried secretions on teeth. Agreed to thorough oral care with swish and spit. During this, he began to cough up very thick, yellow/brown secretions with streaks of red (possibly blood) observed. At times, his secretions were so thick that they clogged the suction tube, unable to pass through. [employer] provided assistance to remove plug- like secretions with toothette, toothbrush and papertowel. After thorough suctioning and oral care, the patient's vocal quality significantly improved, but he was very fatigued. His cough/ throat clear is still very reduced. [employer] provided thorough education regarding the implications of muscle atrophy and the swallow mechanism. [employer] discussed altered diets and thickened liquids as well as extubation effects. [employer] described swallowing rehabilitation techniques and stressed the importance of PO intake, as much as tolerable. [employer] provided written information describing diet modification for home maintenance and provided education regarding appropriate diet upgrade. [employer] also provided education regarding the purpose and procedure of an MBS. The patient verbalized understanding to all information and agreed to participate in an MBS, if necessary. He was very weak and did state that he was feeling sore from sitting up through his therapy session. Treatment Liquids Trialed Thompsons Administration Type Controlled Cup Sip Oral Strategies Upright at 90 degrees Double Swallow Pharyngeal Phase Strategies Sitting Upright (90 deg) Double Swallow Effortful Swallow Additional Dysphagia Treatment Throat clear, double swallow Strategies Treatment Activities [employer] palpated hyolaryngeal elevation/excursion and observed overall reduction in strength. Max verbal cues provided to encourage effortful swallow and double swallow. [employer] requested patient feedback regarding sensation of pharyngeal residue. No residue sensation reported, but decreased vocal quatliy was observed as well as wet, gurgle voice. [employer] provided ongoing cues for throat clear/double swallow and vocalization to increase patient's awareness of reduced vocal quality. Swallow delay of 1-3 seconds observed consistently. Assessment Patient Response to Treatment Good Rehab Potential Good Assessment of Improvement Continued weakness with decreased respiratory endurance. Delayed cough response observed in suction with reduced strength. No diet upgrade appropriate at this time due to the patient' s fatigue and continued dependence on suctioning. Thompsons thick liquids trialed x4, no solids trialed. Due to the patient's decline in status with elevated WBC and discolored secretions, an MBS is warranted at this time. [employer] willl follow up with Dr Levin to discuss appropriate plan of care (MBS warranted, diet upgrade when GI system can tolerate). [employer] will follow up. Diet Recommendations Recommendations Continue Current Diet Liquids Order Thompsons Diet Order Full Liquids Medication Recommendations As Tolerated Aspiration Precautions Recommended Precautions Upright at 90 Degrees Frequent Rest Periods Small Bites/Sips Effortful Swallow Double Swallow Treatment Plan Placement Recommendation after Discharge Long Term Facility Appropriate for Continued Therapy Yes Therapy Recommendations Swallowing therapy 1-2x/day while inpatient Dysphagia Goals Pt will safely tolerate the least-restrictive diet without s/sx aspirations. Pt will improve swallow safety with implementations of safe swallow strategies Pt will implement effortful swallow and double swallow to improve pharyngeal clearance of all PO intake. Pt will particiapte in MBS to determine the function and safety of his laryngeal structurs prio to diet upgrade . Follow Up Plan While inpatient status
--- NOTE | 2018-04-06 13:57 | CM.DPNOTE ---
DCP/continued: Reviewed chart. Pt. currently on LOS day# 15. Spoke with both Dr. Levin and Dr. Martinez. Both requesting that patient be considered for long-term acute care. Patient currently requiring TPN, ostomy care, wound care, and therapy. At this time, duration of TPN unknown. Notified both Dr. Martinez and Dr. Levin that placement at SNF will be difficult given patient's high acuity needs. Asked NIEVES/Inna to fax clinical to [place] for review. Pt. currently with [facility]/[employer]icaid as of March 24, 2018. Left vm with Savana at [place] cell# [phone] re: the above. Asked [facility] to review and call CM team back with thoughts re: admit. Also suggestions for placement if long-term acute care not authorized. P: Pending. Pt. currently with [facility]. Placement will depend on whether or not patient goes to acute long-term care vs. SNF. [facility] will need to be involved. GERONIMO Zaman
--- NOTE | 2018-04-06 14:37 | PC.NURSE ---
Ostomy Nurse Note Collin sleeping yet arouses to speech. He states he is very tired today. His KCI Negative Pressure was discontinued over the weekend and now has a wet to damp dressing midline which Dr. Levin changed this morning. I did not notice any drainage on the midline dressing. His stoma is less edematous, pink, moist. It measures 29mm and the sutures are intact. He has liquid green effluent. His juliane-stomal skin is intact without any redness. His pouching system stayed intact over the weekend. I did change his appliance. I replaced it a [employer] Moldable two piece 45mm wafer with an adaptor and clear non-filtered pouch. Collin tolerated the procedure and actually slept during the appliance change. 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 My goal is to have Collin remove and change his appliance.
--- NOTE | 2018-04-06 16:11 | SLP.IPNOTE ---
WASH CREW PERSON stopped by patient's room to discuss the plans for the MBS scheduled tomorrow at 08:30. The patient had no questions regarding the study and agreed to participate. He did request a glass of water. WASH CREW PERSON noted that he needed nectar thick liquid for all drinks. The patient then declined the offer for water. Plan for MBS tomorrow - determine if any upgrade in diet/liquid order is safe/consistent to be tolerated by mouth. No billable service this visit. Total time - 5 minutes.
--- NOTE | 2018-04-06 16:28 | PT.IPTN ---
Current Diagnoses Sepsis, unspecified organism (03/22/18) Hypocalcemia (03/22/18) Hypokalemia (03/22/18) Other pulmonary embolism without acute cor pulmonale (03/22/18) Chronic pulmonary edema (03/22/18) Acute postprocedural respiratory failure (03/22/18) Ulcerative colitis, unspecified, without complications (03/22/18) Perforation of intestine (nontraumatic) (03/22/18) Shortness of breath (03/22/18) Severe sepsis with septic shock (03/22/18) Physical Therapy Treatment Note M2 PT-IP Current Condition Start: 03/28/18 17:17 Freq: NEEDED Status: Active Protocol: Document 04/01/18 15:10 [facility] (Rec: 04/01/18 16:30 [facility] [id number]) Physical Therapy Current Condition Current Condition Evaluation Date 03/28/18 Treatment Diagnosis post-op colectomy for perforated bowel Onset Date 03/22/18 Post Operative Precautions Abdominal Surgery Precautions Log Roll Lifting Restrictions Gait Belt above Incisional Area Other Precautions contact precautions: 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 Will check back with pt tomorrow.
[2018-04-06] MEDS: WARFARIN 2 MG TABLET 4 MG PO (18:08)
[2018-04-06] MEDS: OXYCODONE IR 5 MG TABLET PO (18:08)
[2018-04-06] MEDS: LYTES IV (18:44)
[2018-04-06] MEDS: DEXT IV (18:44)
[2018-04-06] MEDS: SODIUM CHLORIDE IV (18:44)
[2018-04-06] MEDS: [UNRECOGNIZED DRUG - OTHER] IV (18:44)
[2018-04-06] MEDS: CALCIUM IV (18:44)
[2018-04-06] MEDS: FAT EMULSIONS 50 GM/250 ML EMULSION IV (18:44)
[2018-04-06] MEDS: INSULIN ASPART 100 UNIT/ML INSULN PEN SUBCUT (18:49)
--- NOTE | 2018-04-06 19:19 | RT ---
BREATH SOUNDS ARE CLEAR BILAT. O2 SAT ON RA NOTED AT 98%. RR = 16. BRONCHODILATOR NOT NEEDED AT THIS TIME.
[2018-04-06] MEDS: ALBUTEROL 2.5 MG/3 ML NEB INH (19:36)
--- NOTE | 2018-04-06 19:51 | DI.RAD.S_ITS ---
PROCEDURE: XR CHEST 1V INDICATIONS: consolidated Left lung, asymetrical breathing TECHNIQUE: One view of the chest was acquired. COMPARISON: [facility], CR, XR CHEST 1V, 03/28/2018, 6:00. [facility], CR, XR CHEST 1V, 03/26/2018, 6:02. [facility], CR, XR CHEST 1V, 03/25/2018, 5:32. [facility], CR, XR CHEST 1V, 03/24/2018, 6:05. [facility], CR, CHEST 1 VIEW, 03/23/2018, 16:27. [facility], CR, XR CHEST 1V, 04/03/2018, 5:58. [facility], CR, XR CHEST 1V, 04/01/2018, 11:35. [facility], CR, XR CHEST 1V, 04/01/2018, 9:31. [facility], CR, XR CHEST 1V, 03/31/2018, 8:39. FINDINGS: Surgical changes and devices: PICC line is stable. Lungs and pleura: Patchy opacities noted in the lung bases bilaterally. Trace bilateral pleural effusions. Mediastinum: Mediastinal contours appear normal. Heart size is normal. Bones and chest wall: No suspicious bony lesions. Overlying soft tissues appear unremarkable. IMPRESSION: Patchy opacities in lung bases bilaterally compatible with aspiration, atelectasis or pneumonia. Trace bilateral pleural effusions. Dictated by: Kelly Ruelas MD, PhD on 04/06/2018 at 20:18 Approved by: Kelly Ruelas MD, PhD on 04/06/2018 at 20:19
--- NOTE | 2018-04-06 19:54 | RT ---
NO CHANGE IN DIMINISHED BREATH SOUNDS IN LEFT LUNG NOTED POST TX. STAT CXR REQUESTED TO RN. ORDER OBTAINED.
--- NOTE | 2018-04-06 22:55 | PC.NURSE ---
Evening Shift Note A&Ox3, VSS, 94% on 4L NC. Pt was on RA at begining of shift, requested breathing treatment from RT, RT evaluated pt and concern of consolidated lung, pt w/ increased work of breath and asymetrical breathing, MD informed and xray ordered. No new orders and xray results available, paged and awaiting for response. TPN @ 45.3ml/hr and lipds @ 25mls/hr. Ileostomy patent and voiding in urinal. Up to chair this afternoon, pt up w/ 2p SBA. Abdominal dressing C/D/I. Plan for barium swallow in the am.
[2018-04-07] VITALS (9 sets, daily range): BP systolic 106–116; BP diastolic 61–74; PULSE 86–105; RESP 16–22; TEMP 36.5–37.2; O2SAT 94–99
--- NOTE | 2018-04-07 | DI.RAD.S_ITS ---
PROCEDURE: FL BARIUM SWALLOW W SPEECH INDICATIONS: aspiration/silent aspiration TECHNIQUE: Examination was conducted in conjunction with speech pathology per standard protocol. In the lateral projection, filming was performed of the patient swallowing. AP projection filming may also be performed with patient swallowing. COMPARISON: None. FINDINGS: Function: The oral preparatory phase appears normal, with proper containment. The subsequent oral propulsive phase, pharyngeal phase, and esophageal phase of swallowing also appear normal with all proffered substances. There was, however, laryngotracheal penetration and aspiration with thin liquids in the upright drinking position. Episodic mild pathologic vallecular pooling of liquid and food material was observed. Morphology: No cricopharyngeal bar is identified. No cervical esophageal webs. No Zenker's diverticulum. No strictures. IMPRESSION: Single event of thin liquid penetration and aspiration with patient in upright swallowing position. Thereafter with thicker fluids and especially with chin tuck positioning no penetration or aspiration was observed. Please also refer to the dedicated swallowing evaluation report that will be independently generated. Dictated by: Zeke Ortega M.D. on 04/07/2018 at 9:13 Approved by: Zeke Ortega M.D. on 04/07/2018 at 9:14
[2018-04-07] MEDS: metroNIDAZOLE 500 MG/100 ML PIGGYBACK 100 MG IV ×4 (04:16→21:07)
[2018-04-07 05:34] LABS: INR 1.6 (0.9-1.3)
[2018-04-07 05:38] LABS: Calcium 6.8 mg/dL (8.4-10.2); Estimated Glomerular Filt Rate > 60.0 mL/min (>60); Glucose 114 mg/dL (70-100); HEMOLYSIS < 15 (0-50); Potassium 4.4 mmol/L (3.4-5.1); Sodium 132 mmol/L (137-145)
--- NOTE | 2018-04-07 06:49 | PC.NURSE ---
maintenance technician 3rd shift: pt oriented to self and place, flat affect and slightly withdrawn during care. Pt has denies pain and nausea overnight. Ileostomy has liquid brown stool. Dressing to abdomen is CDI.
[2018-04-07] MEDS: PANTOPRAZOLE 40 MG VIAL IV (09:43)
[2018-04-07] MEDS: ENOXAPARIN 60 MG/0.6 ML SYRINGE 50 MG SUBCUT ×2 (09:43→21:08)
[2018-04-07] MEDS: TIGECYCLINE 50 MG in SODIUM CHLORIDE 0.9% 100 ML 200 ML IV ×2 (09:44→21:07)
--- NOTE | 2018-04-07 10:53 | PM.PN.1 ---
Subjective Interval history: Patient with increasing WBC and patchy infiltrate in bases consistent with aspiration pneumonia. Exam Vital Signs (past 8 hours): Vital Signs - 8 hr 04/07/18 06:50 04/07/18 08:31 Temperature 97.7 F 98.6 F Pulse Rate 93 H 86 Respiratory Rate 22 16 Blood Pressure 111/63 106/61 Pulse Oximetry 99 99 Pulse Oximetry 99 Fraction of Inspired Oxygen 30 Oxygen Delivery Method Nasal Cannula Oxygen Flow Rate 4 Narrative Exam Narrative: Exam Narrative: GENERAL: Thin middle-aged man in no acute distress. CHEST: Clear to auscultation bilaterally CARDIAC: Regular rate and rhythm ABDOMEN: Soft, nontender. No guarding or rebound. Ostomy has normal output. Anterior abdominal wound was dressed and dressing EXTREMITIES: Severe muscle atrophy in upper and lower extremities, no edema. NEUROLOGICAL: Alert and oriented; Normal muscle strength. SKIN: Warm, dry, no petechiae, no rashes or lesions. Objective Labs Result Diagrams: 04/06/18 05:05 04/07/18 05:03 Labs: Laboratory Results - last 24 hr 04/07/18 04/07/18 05:03 05:03 PT 17.0 H INR 1.6 H Sodium 132 L Potassium 4.4 Chloride 102.0 Carbon Dioxide 22.0 BUN 18.0 Creatinine 0.50 L Estimated GFR > 60.0 BUN/Creatinine Ratio 36.0 H Glucose 114 H Calcium 6.8 L Assessment & Plan Plan: Plan: 1. Acute pulmonary embolism: Clinically stable. Full-dose Lovenox was initiated on the evening of 04/03/2018. Continue Lovenox 50 mg every 12 hr for 5-7 days and until INR is above 2.0. Started patient on warfarin 4 mg q.p.m. as of 04/04/2018. INR 1.6 on 04/07/2018. Warfarin dose increased up to 5 mg q.p.m. as of 04/07/2018. Recheck INR on 04/09/2018. Patient can follow with Dr. Cedillo at [facility] for outpatient monitoring. He should complete 90 day duration of oral anticoagulant therapy. 2. Aspiration pneumonia with acute hypoxic respiratory failure: He is on 4 L O2 nasal cannula. Continue Tygacil and metronidazole. Note elevated rising WBC unclear whether due to wound infection or pneumonia. 3. Depression: Resumed Abilify 5 mg daily. He is also on sertraline 50 mg daily. 4. 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 Taking food by mouth. Also on TPN. Managed by surgery. 5. Septic shock: Resolved. Antibiotics per surgery. 6. Severe protein calorie malnutrition secondary to acute on chronic illness: He is on TPN for nutritional support. Encourage oral intake. Continue monitor his nutritional status. 7. Dysphagia: Likely secondary to muscle weakness. Followed by speech pathology. He is currently on nectar thick liquid. 8. Disposition: I have discussed discharge planning with case technician. He will be a good candidate for long-term acute care facility due to requiring TPN for minimum of a month for nutritional support and wound care for the abdominal wound and intensive PT and OT treatments. Quality VTE Deep Vein Thrombosis/Pulmonary Embolism Present on Admission: No
[2018-04-07] MEDS: ARIPiprazole 10 MG TABLET 5 MG PO (10:56)
[2018-04-07] MEDS: SERTRALINE 50 MG TABLET PO (10:56)
--- NOTE | 2018-04-07 10:59 | P.PN_ITS ---
Subjective Interval history: Patient with increasing WBC and patchy infiltrate in bases consistent with aspiration pneumonia. Exam Vital Signs (past 8 hours): Vital Signs - 8 hr 3 04/07/18 06:50 04/07/18 08:31 Temperature 97.7 F 98.6 F Pulse Rate 93 H 86 Respiratory Rate 22 16 Blood Pressure 111/63 106/61 Pulse Oximetry 99 99 Pulse Oximetry 99 Fraction of Inspired Oxygen 30 Oxygen Delivery Method Nasal Cannula Oxygen Flow Rate 4 Narrative Exam Narrative: Exam Narrative: GENERAL: Thin middle-aged man in no acute distress. CHEST: Clear to auscultation bilaterally CARDIAC: Regular rate and rhythm ABDOMEN: Soft, nontender. No guarding or rebound. Ostomy has normal output. Anterior abdominal wound was dressed and dressing EXTREMITIES: Severe muscle atrophy in upper and lower extremities, no edema. NEUROLOGICAL: Alert and oriented; Normal muscle strength. SKIN: Warm, dry, no petechiae, no rashes or lesions. Objective Labs Result Diagrams: 04/06/18 05:05 04/07/18 05:03 Labs: Laboratory Results - last 24 hr 04/07/18 04/07/18 05:03 05:03 PT 17.0 H INR 1.6 H Sodium 132 L Potassium 4.4 Chloride 102.0 Carbon Dioxide 22.0 BUN 18.0 Creatinine 0.50 L Estimated GFR > 60.0 BUN/Creatinine Ratio 36.0 H Glucose 114 H Calcium 6.8 L Assessment & Plan Plan: Plan: 1. Acute pulmonary embolism: Clinically stable. Full-dose Lovenox was initiated on the evening of 04/03/2018. Continue Lovenox 50 mg every 12 hr for 5-7 days and until INR is above 2.0. Started patient on warfarin 4 mg q.p.m. as of 04/04/2018. INR 1.6 on 04/07/2018. Warfarin dose increased up to 5 mg q.p.m. as of 04/07/2018. Recheck INR on 04/09/2018. Patient can follow with Dr. Cedillo at [facility] for outpatient monitoring. He should complete 90 day duration of oral anticoagulant therapy. 2. Aspiration pneumonia with acute hypoxic respiratory failure: He is on 4 L O2 nasal cannula. Continue Tygacil and metronidazole. Note elevated rising WBC unclear whether due to wound infection or pneumonia. 3. Depression: Resumed Abilify 5 mg daily. He is also on sertraline 50 mg daily. 4. 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 Taking food by mouth. Also on TPN. Managed by surgery. 5. Septic shock: Resolved. Antibiotics per surgery. 6. Severe protein calorie malnutrition secondary to acute on chronic illness: He is on TPN for nutritional support. Encourage oral intake. Continue monitor his nutritional status. 7. Dysphagia: Likely secondary to muscle weakness. Followed by speech pathology. He is currently on nectar thick liquid. 8. Disposition: I have discussed discharge planning with correctional casework specialist. He will be a good candidate for long-term acute care facility due to requiring TPN for minimum of a month for nutritional support and wound care for the abdominal wound and intensive PT and OT treatments. Quality VTE Deep Vein Thrombosis/Pulmonary Embolism Present on Admission: No
--- NOTE | 2018-04-07 11:31 | PC.NURSE ---
Patient in no acute distress this AM. Taken for barium swallow at 0830. FARM EQUIPMENT ASSEMBLER Francine recommends taking pills crushed. Patient informed of this and declines stating he is only willing to take them whole. Educated on indication for crushed pills. Patient continues to decline. Discussed again with Francine who recommends in this case to give pills with apple sauce. Dressing to abdomen left intact until surgery MD visits. Discussed with medicine MD patient increasing WBC count and that no labs drawn today. MD states this RN should discuss with surgery team. Patient on appropriate antibiotic for PNA based on 04/06 CXR.
--- NOTE | 2018-04-07 12:04 | ST.SWALLOW ---
Kapil Grace DO Emergency Provider Physician Specialty: Emergency Medicine Address: [address] [place] [address], [address] Email: [email or web address] Akla Martinez MD Admit Provider Physician Attending Provider Primary Care Provider Specialty: Internal Medicine Address: [address] [place] [address], [id number] Email: Modified Barium Swallow Study BILLET CHECKER Modified Barium Swallow Study Start: 04/07/18 11:32 Freq: Status: Active Protocol: Activity Type Activity Date Activity User E-Sign Co-Sign Detail Recorded Client Recorded Date Recorded By Document 04/07/18 11:32 MRM [id number] 04/07/18 11:57 MRM 04/07/18 11:32 Modified Barium Swallow Study [Total Time] -Visit Start Time 08:30 -Visit Stop Time 09:30 -Total Visit Minutes 60 [Visit Information] -Insurance Information Remy [Referral] -Referring Physician Dr Martinez -Reason for Referral Aspiration [Setting] -Setting Acute Care [Patient Information] -Identification Type Name -Patient History Pt was observed by nursing to be having difficulty with swallowing thin liquids during his meals. Order received for swllowing assesment on 11/10. Swallowing evaluation to r /o aspiration. PT has been in the hospital for several days. He was intubated following his surgrery for five days. Was previously on a full liquid diet, but placed on nectar thick liquids after swallow evaluation on . Patient 's lungs have continued to decline, as has his overall strength. Suction has been required at bedside, and he has been suctioning himself when needed. Significant secretions have been expelled. Patient continued to exhibit overall decline on and an MBS was requested to evaluate the nature of his swallowing. Chest xray (10/11) indicated: Lungs and pleura: No acute airspace opacities. Small right and trace left basal pleural effusions are present, causing bilateral lower lobe compressive atelectasis. NEW CXR () Indicated: Patchy opacities in lung bases bilaterally compatible with aspiration, atelectasis or pneumonia. Trace bilateral pleural effusions. PMH: Sepsis, unspecified organism (03/22) Hypocalcemia ( 03/22/18) Hypokalemia () Chronic pulmonary edema (03/22/18) Acute postprocedural respiratory failure () Ulcerative colitis, unspecified, without complications ( 03/22/18) Perforation of intestine ( nontraumatic) ( 03/22/18) Severe sepsis with septic shock (03/22/18 ) -Subjective Observations Patient arrived to the MBS suite via wheelchair. No complaints of pain pre/post. He was very weak and fatiuged quickly. O2 support and suction were set up prior to the study. He required suction immediately after his first swallow attempt. [Patient Positioning] -Position View Lateral Imaging [Lateral View] [Textures Administered] -Trials Presented Thin Liquid via Cup [place] Liquid via Cup Dysphagia Blenderized Textures Dysphagia Mechanical Textures Dysphagia Advanced Textures Regular Textures [Oral Phase] Source: MBSIMP (TM) (C) Bolus Specific Scoring Grid -Lip Closure No Impairment ( WNL) -Tongue Control During Bolus Hold WFL -Bolus Prep/Mastication Moderate Impairment -Bolus Transport/Lingual Motion No Impairment ( WNL) -A/P Lingual Propulsion Delay No -Oral Residue Mild Impairment -Residue Clearing Mild Impairment -Nasal Regurgitation No [Pharyngeal Phase] Source: MBSIMP (TM) (C) Bolus Specific Scoring Grid -Delayed Initiation of Pharyngeal No Swallow -Soft Palate Elevation No Impairment ( WNL) -Tongue Base Strength/Range of Motion Mild Impairment -Residue Along the Tongue Base Yes -Clearance of Residue Along Tongue Moderate Base Impairment -Laryngeal Elevation Moderate Impairment -Anterior Hyoid Movement Moderate Impairment -Epiglottic Range of Motion Moderate Impairment -Vallecular Residue Yes: Observed with all trials -Clearance of Vallecular Residue Minimal Impairment -Laryngeal Vestibular Closure Moderate Impairment -Pharyngeal Stripping Wave Minimal Impairment -Pharyngeal Contraction Minimal Impairment -Posterior Pharyngeal Wall Residue No -Clearance of Posterior Pharyngeal WFL Wall Residue -Upper Esophageal Sphincter Opening WFL -Residue in the Pyriform Sinuses No: Trace amount observed with liquids and puree applesauce -Clearance of Residue in the Pyriform Minimal Sinuses Impairment -Esophageal Clearance Upright Position WFL -Pharyngoesophageal Backflow Observed No [A/P View] [Esophageal Observations] -Esophageal Function No significant esophageal observations. Please refer to Radiology report from Dr Ortega. [Clinical Impressions] -Dysphagia Type Moderate-severe oropharyngeal dyspahgia -Findings Moderate-severe oropharyngeal dysphagia secondary to severe atrophy and fatigue causing decline in musculature function. Patient's primary deficit is significantly reduced hyolarynegal eleavation and excursion, which inhibits adequate laryngeal elevation for airway protection. In addition to this, the patient also exhibits reduced tongue base strength, decreasing epiglottic inversion, which also creates reduced airway closure required for laryngeal seal to prevent aspiration. Derrick aspiration with immediate cough response was obsereved x1 with thin liquids via cup due to inadequate laryngeal closure from decreased laryngeal eleavation and decreased epiglottic inversion. With nectar thick liquids via cup , the patient was obsereved to penetrate silently into laryngeal vestibule with nectar thick liquids without any compensatory strategies. With throat clear and extra swallows, he was able to retract a signficant amount of the residue from this penetration, however, after multiple swallows, he did aspirate a trace amount of this residue. With a chin tuck, however, he was successful in swallowing nectar thick liquids without penetration. No penetration observed with puree applesauce, soft fruit or a regular cracker. He did exhibit moderate-severe vallecular residue with solids. With additional swallows, however, he was able to successfully clear this residue without penetration. In trials of solid textures, patient was observed to fatigue quickly during mastication with limited lingual movement and reduced mandibular motion. No premature spillage was observed, however. Due to this consistent decline in strength, soft solids are recommended at this time. RECOMMEND: [place] thick liquids with dysphagia mechanical textures. Please add moisture to meals and provide 1:1 supervision to monitor patient for fatigue. Frequent rest periods are highly recommended in order to maintain safety . Patient's greatest barrier to improvement in his gross overall decline in status with significantly reduced strength. BILLET CHECKER will follow up for education and strengthening exercises. -Rehabilitation Potential Excellent -Patient Appropriate for Therapy Yes [Recommendations] [Diet] -Liquids Order Thin -Diet Order Dysphagia Mechanical -Medication Recommendation As Tolerated Whole in Carrier -Additional Dietary Needs Chopped Food Single Sips No Straws 1:1 Supervision Encourage to Self-Feed Reminders to Use Strategies [Aspiration Precautions] -Recommended Precautions Upright at 90 Degrees Alternate Liquids/Solids Frequent Rest Periods Small Bites/ Sips Chin Tuck Effortful Swallow Double Swallow Lingual Sweep Supraglottic Swallow Aron Maneuvor [Treatment Plan] -Therapy Recommendations Inpatient Speech Therapy Oral Motor Exercises Lingual Exercises Base of Tongue Exercises Compensatory Strategy Education -Recommended Referrals Dietary Consult -Compensatory Strategies Sitting Upright Recommendations (90 deg) Chin Tuck Double Swallow Supraglottic Swallow Mendelsonn Maneuver Small Bites and Sips Alternate Liquids/Solids -Additional Compensatory Strategies Frequent rest Recommended periods; laryngeal strengthening exercises -Short Term Goals Patient will tolerate nectar thick liquids and dysphagia mechanical textures without overt s /s of aspiration. Patient will implement chin tuck/effortful swallow/double swallow with all liquids intake to prevent penetration and /or aspiration. Patient will perform laryngeal strengthening exercises to improve overall laryngeal function to improve swallow ability. -Placement Recommendation After [facility] Care Discharge Facility
--- NOTE | 2018-04-07 13:11 | ST.SWALLOW ---
Visit Care Team Role Provider Type Family Provider Specialty: Address: Phone: Fax: Email: Kapil Grace DO Emergency Provider Physician Specialty: Emergency Medicine Address: [address] [place] [address], [address] Email: [email or web address] Alka Martinez MD Admit Provider Physician Attending Provider Primary Care Provider Specialty: Internal Medicine Address: [address] [place] [address], [address] Email: ST Modified Barium Swallow Study SCIENTIFIC ILLUSTRATOR Modified Barium Swallow Study Start: 04/07/18 11:32 Freq: Status: Active Protocol: Activity Type Activity Date Activity User E-Sign Co-Sign Detail Recorded Client Recorded Date Recorded By Document 04/07/18 11:32 MRM [id number] 04/07/18 11:57 MRM 04/07/18 11:32 Modified Barium Swallow Study [Total Time] -Visit Start Time 08:30 -Visit Stop Time 09:30 -Total Visit Minutes 60 [Visit Information] -Insurance Information Alberto [Referral] -Referring Physician Dr Martinez -Reason for Referral Aspiration [Setting] -Setting Acute Care [Patient Information] -Identification Type Name -Patient History Pt was observed by nursing to be having difficulty with swallowing thin liquids during his meals. Order received for swllowing assesment on 11/10. Swallowing evaluation to r /o aspiration. PT has been in the hospital for several days. He was intubated following his surgrery for five days. Was previously on a full liquid diet, but placed on nectar thick liquids after swallow evaluation on . Patient 's lungs have continued to decline, as has his overall strength. Suction has been required at bedside, and he has been suctioning himself when needed. Significant secretions have been expelled. Patient continued to exhibit overall decline on and an MBS was requested to evaluate the nature of his swallowing. Chest xray (10/11) indicated: Lungs and pleura: No acute airspace opacities. Small right and trace left basal pleural effusions are present, causing bilateral lower lobe compressive atelectasis. NEW CXR () Indicated: Patchy opacities in lung bases bilaterally compatible with aspiration, atelectasis or pneumonia. Trace bilateral pleural effusions. PMH: Sepsis, unspecified organism (03/22) Hypocalcemia ( 03/22/18) Hypokalemia () Chronic pulmonary edema (03/22/18) Acute postprocedural respiratory failure () Ulcerative colitis, unspecified, without complications ( 03/22/18) Perforation of intestine ( nontraumatic) ( 03/22/18) Severe sepsis with septic shock (03/22/18 ) -Subjective Observations Patient arrived to the MBS suite via wheelchair. No complaints of pain pre/post. He was very weak and fatiuged quickly. O2 support and suction were set up prior to the study. He required suction immediately after his first swallow attempt. [Patient Positioning] -Position View Lateral Imaging [Lateral View] [Textures Administered] -Trials Presented Thin Liquid via Cup [place] Liquid via Cup Dysphagia Blenderized Textures Dysphagia Mechanical Textures Dysphagia Advanced Textures Regular Textures [Oral Phase] Source: MBSIMP (TM) (C) Bolus Specific Scoring Grid -Lip Closure No Impairment ( WNL) -Tongue Control During Bolus Hold WFL -Bolus Prep/Mastication Moderate Impairment -Bolus Transport/Lingual Motion No Impairment ( WNL) -A/P Lingual Propulsion Delay No -Oral Residue Mild Impairment -Residue Clearing Mild Impairment -Nasal Regurgitation No [Pharyngeal Phase] Source: MBSIMP (TM) (C) Bolus Specific Scoring Grid -Delayed Initiation of Pharyngeal No Swallow -Soft Palate Elevation No Impairment ( WNL) -Tongue Base Strength/Range of Motion Mild Impairment -Residue Along the Tongue Base Yes -Clearance of Residue Along Tongue Moderate Base Impairment -Laryngeal Elevation Moderate Impairment -Anterior Hyoid Movement Moderate Impairment -Epiglottic Range of Motion Moderate Impairment -Vallecular Residue Yes: Observed with all trials -Clearance of Vallecular Residue Minimal Impairment -Laryngeal Vestibular Closure Moderate Impairment -Pharyngeal Stripping Wave Minimal Impairment -Pharyngeal Contraction Minimal Impairment -Posterior Pharyngeal Wall Residue No -Clearance of Posterior Pharyngeal WFL Wall Residue -Upper Esophageal Sphincter Opening WFL -Residue in the Pyriform Sinuses No: Trace amount observed with liquids and puree applesauce -Clearance of Residue in the Pyriform Minimal Sinuses Impairment -Esophageal Clearance Upright Position WFL -Pharyngoesophageal Backflow Observed No [A/P View] [Esophageal Observations] -Esophageal Function No significant esophageal observations. Please refer to Radiology report from Dr Ortega. [Clinical Impressions] -Dysphagia Type Moderate-severe oropharyngeal dyspahgia -Findings Moderate-severe oropharyngeal dysphagia secondary to severe atrophy and fatigue causing decline in musculature function. Patient's primary deficit is significantly reduced hyolarynegal eleavation and excursion, which inhibits adequate laryngeal elevation for airway protection. In addition to this, the patient also exhibits reduced tongue base strength, decreasing epiglottic inversion, which also creates reduced airway closure required for laryngeal seal to prevent aspiration. Derrick aspiration with immediate cough response was obsereved x1 with thin liquids via cup due to inadequate laryngeal closure from decreased laryngeal eleavation and decreased epiglottic inversion. With nectar thick liquids via cup , the patient was obsereved to penetrate silently into laryngeal vestibule with nectar thick liquids without any compensatory strategies. With throat clear and extra swallows, he was able to retract a signficant amount of the residue from this penetration, however, after multiple swallows, he did aspirate a trace amount of this residue. With a chin tuck, however, he was successful in swallowing nectar thick liquids without penetration. No penetration observed with puree applesauce, soft fruit or a regular cracker. He did exhibit moderate-severe vallecular residue with solids. With additional swallows, however, he was able to successfully clear this residue without penetration. In trials of solid textures, patient was observed to fatigue quickly during mastication with limited lingual movement and reduced mandibular motion. No premature spillage was observed, however. Due to this consistent decline in strength, soft solids are recommended at this time. RECOMMEND: [place] thick liquids with dysphagia mechanical textures. Please add moisture to meals and provide 1:1 supervision to monitor patient for fatigue. Frequent rest periods are highly recommended in order to maintain safety . Patient's greatest barrier to improvement in his gross overall decline in status with significantly reduced strength. SCIENTIFIC ILLUSTRATOR will follow up for education and strengthening exercises. -Rehabilitation Potential Excellent -Patient Appropriate for Therapy Yes [Recommendations] [Diet] -Liquids Order [place] -Diet Order Dysphagia Mechanical -Medication Recommendation As Tolerated Whole in Carrier -Additional Dietary Needs Chopped Food Single Sips No Straws 1:1 Supervision Encourage to Self-Feed Reminders to Use Strategies [Aspiration Precautions] -Recommended Precautions Upright at 90 Degrees Alternate Liquids/Solids Frequent Rest Periods Small Bites/ Sips Chin Tuck Effortful Swallow Double Swallow Lingual Sweep Supraglottic Swallow Aron Maneuvor [Treatment Plan] -Therapy Recommendations Inpatient Speech Therapy Oral Motor Exercises Lingual Exercises Base of Tongue Exercises Compensatory Strategy Education -Recommended Referrals Dietary Consult -Compensatory Strategies Sitting Upright Recommendations (90 deg) Chin Tuck Double Swallow Supraglottic Swallow Mendelsonn Maneuver Small Bites and Sips Alternate Liquids/Solids -Additional Compensatory Strategies Frequent rest Recommended periods; laryngeal strengthening exercises -Short Term Goals Patient will tolerate nectar thick liquids and dysphagia mechanical textures without overt s /s of aspiration. Patient will implement chin tuck/effortful swallow/double swallow with all liquids intake to prevent penetration and /or aspiration. Patient will perform laryngeal strengthening exercises to improve overall laryngeal function to improve swallow ability. -Placement Recommendation After [facility] Care Discharge Facility
--- NOTE | 2018-04-07 13:20 | P.PN_ITS ---
Subjective Interval history: Patient with increasing WBC and patchy infiltrate in bases consistent with aspiration pneumonia. [place] short of breath yesterday and is now on 4 L nasal cannula oxygen. Feels congested. Denies pain. Remains relatively depressed. Would like to have food from outside the hospital if possible. Date Patient Seen: 04/07/18 Time Patient Seen: 13:10 Exam Vital Signs (past 8 hours): Vital Signs - 8 hr 3 04/07/18 06:50 04/07/18 08:31 Temperature 97.7 F 98.6 F Pulse Rate 93 H 86 Respiratory Rate 22 16 Blood Pressure 111/63 106/61 Pulse Oximetry 99 99 Pulse Oximetry 99 Fraction of Inspired Oxygen 30 Oxygen Delivery Method Nasal Cannula Oxygen Flow Rate 4 Narrative Exam Narrative: Lying in bed in no acute distress. Mildly tachypneic. Poor cough effort with copious rhonchi and thick secretions which he is having difficulty clearing. Alert oriented x3 Sclera nonicteric Regular rate and rhythm Abdomen soft and nondistended. He is essentially nontender to examination. No guarding or rebound. His wound remains open with further separation. Prolene suture line along the fascia is essentially disrupted but no dehiscence. Minimal granulation. Fibrin is debris throughout the wound but no kathi pus. No undrained pockets. Skin edges are viable. Ileostomy is pink and viable with normal output in the appliance. Extremities show no clubbing, cyanosis, or edema His overall appearance is one of cachexia Objective Labs Result Diagrams: 04/06/18 05:05 04/07/18 05:03 Labs: Laboratory Results - last 24 hr 04/07/18 04/07/18 05:03 05:03 PT 17.0 H INR 1.6 H Sodium 132 L Potassium 4.4 Chloride 102.0 Carbon Dioxide 22.0 BUN 18.0 Creatinine 0.50 L Estimated GFR > 60.0 BUN/Creatinine Ratio 36.0 H Glucose 114 H Calcium 6.8 L Assessment & Plan Plan: Plan: 43-year-old male status post subtotal colectomy who continues to slowly deteriorate without any evidence of sepsis. His overall immune function and nutritional status are severely compromised. He completed modified barium swallow today which essentially demonstrated some aspiration with thin liquids. However, he appears to be able to tolerate some thickened liquids along with some other textures with appropriate aspiration precautions. I discussed the case with the speech therapist. They are aware of his desire for food from outside the hospital. Hopefully he will find something that appeals to him that is safe to eat from the speech pathology standpoint that might initiate his appetite. He is safe from a surgical perspective to eat whatever he can tolerate as his GI function appears to be at baseline with a new ileostomy now. I discussed using Marinol. We will institute this today. Continue anticoagulation for pulmonary embolism. His INR is not yet therapeutic. Anticoagulation management per Internal Medicine Service. I personally changed his wet-to-dry dressing on the wound. We will continue to change the dressing once or twice per day. He has not yet significantly participated in physical therapy today. I strongly encouraged him to be up and out of bed several times daily. Continue TPN. We will start constant TPN based on dietary recommendations documented yesterday. Because of the hypoxia and significant secretions with elevated white blood cell count of unclear etiology I believe it would be prudent to repeat a CT scan of the chest, abdomen, and pelvis with oral and IV contrast. Overall, his prognosis still remains guarded. I believe he would be best served in a rehabilitation facility for a while while he continues with speech therapy, occupational therapy, physical therapy, wound care, ileostomy care, and TPN daily until such time as oral nutrition improves. In my opinion, home health services would be somewhat inadequate to provide all of that care at the intensity required. Rehab evaluation is scheduled for tomorrow afternoon. He is not a candidate for enteral access as documented in my note yesterday. I discussed all the above issues with him in detail. All questions were answered to his satisfaction, and he voiced understanding. I have also discussed the case with discharge planning in the attending nurse today. Orders were written. Quality VTE Deep Vein Thrombosis/Pulmonary Embolism Present on Admission: No
--- NOTE | 2018-04-07 13:41 | RT ---
Patient's sat noted to be 98% on 4 liters. CXR was recommended by weight shifter RT which showed bilateral patchy opacities in the bases and some trace pleural effusions. No wheezing appreciated upon auscultation. Patient using IS at bedside and encouraged to continue to do so.
--- NOTE | 2018-04-07 15:50 | OT.IP.EVAL ---
Current Diagnoses Sepsis, unspecified organism (03/22/18) Hypocalcemia (03/22/18) Hypokalemia (03/22/18) Other pulmonary embolism without acute cor pulmonale (03/22/18) Chronic pulmonary edema (03/22/18) Acute postprocedural respiratory failure (03/22/18) Ulcerative colitis, unspecified, without complications (03/22/18) Perforation of intestine (nontraumatic) (03/22/18) Shortness of breath (03/22/18) Severe sepsis with septic shock (03/22/18) Past Medical History (Last Updated 04/06/18 @ 04:06 by Lilly Bertrand RN) ADHD (Acute) Depression (Acute) Ulcerative colitis (Acute) Surgical History (Last Updated 04/06/18 @ 04:07 by Lilly Bertrand RN) Post-splenectomy (Acute) Occupational Therapy Inpatient Evaluation/Re-Eval M1 PT/OT-IP Prior Functional Status Start: 04/07/18 15:30 Freq: NEEDED Status: Active Protocol: Document 04/07/18 15:26 PJM (Rec: 04/07/18 15:50 PJ [id number]) Medical Review Prior Functional Status Medical History Reviewed Yes Diet/Fluid Consistency Dysphagia Mechanical [place] Thick Communication faint voice Mobility and Gait pt stated that he was independent with all mobilities and ambulation without AD Activities of Daily Living and IADL's Pt states he was independent with all self care. 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 0 Home Environment Walk in Shower Home Equipment Shower Seat with Backrest Hand Held Shower Employment Status Unemployed Additional Social History Comment Pt lives with his mother and disabled brother. M2 OT-IP Current Condition Start: 04/07/18 15:30 Freq: Status: Active Protocol: Document 04/07/18 15:26 PJM (Rec: 04/07/18 15:50 PJ [id number]) Occupational Therapy Current Condition Current Condition Evaluation Date 04/07/18 Treatment Diagnosis decreased BUE/hand strength, endurance and self care skills Diagnosis Onset Date 03/22/18 Post Operative Precautions Abdominal Surgery Precautions Log Roll Lifting Restrictions Gait Belt above Incisional Area Other Precautions open abdominal incision with wet to dry dressings and new ileostomy M3 OT- IP Subjective and Pain Start: 04/07/18 15:30 Freq: Status: Active Protocol: Document 04/07/18 15:26 PJM (Rec: 04/07/18 15:50 PJ NRTM) OT- Subjective Occupational Therapy Visit Type Type Initial Evaluation Visit Start Time 15:00 Visit Stop Time 15:26 Total Visit Minutes 26 Notes Pt seen at bedside, declined OOB activity this session due to fatigue. Occupational Therapy Visit Comments Patient Comments I need to get stronger. Patient/Caregiver Goals to go back to work OT Pain Assessment Pain When Pain Assessed At Rest Pain Present Pain Present Denied Pain M4 OT- IP ADL's Start: 04/07/18 15:30 Freq: Status: Active Protocol: Document 04/07/18 15:26 PJM (Rec: 04/07/18 15:50 PJ NRTM) OT [id number] General Evaluation Self-Feeding Ability Standby Assistance Comments OT Self-Feeding Comments Pt recommended 1:1 supervision for swallowing strategies. Pt on DMA diet with nectar thick liquids. OT ADL-Grooming Comments OT Grooming Comments to be assessed, pt declined this session OT ADL-Oral Care Comments Oral Care Comments to be assessed, pt declined this session OT ADL-Dressing General Eval Upper Body Dressing Ability Minimal Assistance Areas Needing Assistance Retrieving/Set-up of Clothing Underpants/Brief Socks Comments OT Dressing Comments pt wearing incontinent brief for new urinary incontinence OT ADL-Toileting General Evaluation Toileting Ability Minimal Assistance Areas Needing Assistance Empty Catheter or Colostomy Manage Clothing Comments OT Toileting Comments tugboat engineer has been teaching pt ostomy care for new ileostomy OT ADL-Bathing Comments OT Bathing Comments to be assessed M5 OT- IP IADL's Start: 04/07/18 15:30 Freq: Status: Active Protocol: Document 04/07/18 15:26 PJM (Rec: 04/07/18 15:50 PJ NRTM) OT-Instrumental Activities of Daily Living Deficits IADL Deficits Identified Deficits Home Safety Awareness Awareness of Need for Assistance at Home Decreased Awareness Meal Preparation Meal Preparation Comments total assist on modified diet at present, DMA w/nectar thicks Bindery Operator Bindery Operator Comments Total assist Driving Driving Comments pt unable to drive at present M6 OT- IP Functional Cognition Start: 04/07/18 15:30 Freq: Status: Active Protocol: Document 04/07/18 15:26 PJM (Rec: 04/07/18 15:50 PJM [id number]) Cognitive Factors Limiting Selfcare Function Cognitive Ability Level of Alertness Alert Patient Orientation Name Month Date Year Place Situation Attention Span Ability Capable of Focused Attention Ability to Follow Commands Able to Follow One Step Commands Safety Awareness Underestimates Need for Assistance Cognitive Comments Cognitive Assessment Comments flat affect, some decreased insight into current care needs OT- Vision and Hearing OT- Hearing Assessment OT- Hearing Assessment WFL OT- Vision Assessment Visual Acuity WFL Contact Lenses Visual Attentiveness WFL Vision Assessment Comments Pt able to put in/remove soft contacts independently. He denies any new vision deficits . M7 OT- IP Mobility and Balance Start: 04/07/18 15:30 Freq: Status: Active Protocol: Document 04/07/18 15:26 PJM (Rec: 04/07/18 15:50 PJM [id number]) OT-Transfer Assessment Comments Mobility Comments Pt declined OOB activity this session due to fatigue from tests this AM. M8 OT- IP Objective Assessments Start: 04/07/18 15:30 Freq: Status: Active Protocol: Document 04/07/18 15:26 PJM (Rec: 04/07/18 15:50 PJM [id number]) OT Gross Range of Motion Upper Extremity Range of Motion Assessment Within Functional Limits OT Strength Upper Extremity Strength Shoulder 4/5 R shoulder weaker than L Elbow 4/5 Forearm 4/5 Wrist 4/5 Hand 4-/5 with intrinsic atrophy noted Hand Tobacco Sweeper Strength Hand Dominance Right Comments Strength Comments Pt agreeable to starting BUE strengthening program OT- Coordination Assessment Comments Coordination Comments Pt able to insert contact lenses independently. OT-Muscle Tone Assessment Muscle Tone WNL Yes OT Sensation Assessment Comments Summary Comments Pt denies sensory deficits in BUE's Edema Edema Absent M9 OT- IP Assessment and Plan Start: 04/07/18 15:30 Freq: Status: Active Protocol: Document 04/07/18 15:26 PJM (Rec: 04/07/18 15:50 PJM [id number]) OT Summary Assessment and Plan Potential Rehabilitation Potential Good Analytic Complexity at Evaluation Moderate Summary OT Impairments Strength Functional Mobility Grooming Dressing Toileting Bathing Toilet Transfers Shower Transfers Assessment Summary Pt seen for moderate complexity OT assessment due to complex medical situation with extra time needed for chart review. Pt currently has performance deficits in BUE/ hand strength, general endurance and self limits OOB activity. He also has deficits in dressing, bathing, toileting (currently using urinal and still learning ostomy care) and all functional mobility/transfers. Pt will benefit from OT services here to address the goals below: Goals Self-Feeding Goal Independent Grooming Goal Standby Assistance Dressing Goal Standby Assistance Toileting Goal Standby Assistance Bathing Goal Standby Assistance Toilet Transfer Goal Standby Assistance Shower Transfer Goal Standby Assistance Patient/Caregiver Education Goal Demonstrate Post-Op Precautions Demonstrate Energy Conservation and Pacing Caregiver Independent Assisting Patient OT-Other Goals Pt to be indep with BUE/hand strengthening program with good technique. Frequency of Treatment Frequency Of Treatment Once a Day Treatment Plan OT Treatment Plan ADL Training Functional Mobility Therapeutic Exercises Other Treatment Recommendations and Next grooming at sink, LB dressing, Treatment Focus theraband/theraputty Discharge Recommendations OT Discharge Recommendations Home Home with 24/ Assist Home Health Other Discharge Recommendations Per case management notes, d/c plan is home with mother's assist and HH PT/OT/STlalo, SNAKE CHARMER.
--- NOTE | 2018-04-07 16:32 | ST.IPTN ---
CELL TUBER MACHINE Dysphagia Treatment CELL TUBER MACHINE Dysphagia Treatment Start: 04/06/18 13:05 Freq: Status: Active Protocol: Document 04/07/18 14:22 JOHANNA (Rec: 04/07/18 15:30 JOHANNA [id number]) Dysphagia Treatment Session Time Visit Start Time 12:45 Visit Stop Time 13:25 Total Visit Minutes 40 Setting Assessment Location Acute Care Visit Type Note Type Treatment Note Patient Information Identification Type Name Subjective Observations Pt was seen for dysphagia tx with lunch immediately following dressing change performed by Dr. Levin, who cleared the pt for solid foods from GI standpoint. 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 Dried secretions were observed on the pt's lips, which he was able to clear with wet swab and wash cloth. The pt's oral hygiene appeared poor; however, the pt stated he did not want to brush his teeth and continued to decline after education RE potential aspiration/pna risks. The pt was able to verbalize and perform safe swallow strategies that had been recommended following the MBS which was performed earlier today. See that report for findings. Treatment Liquids Trialed [place] Solids Trialed Dysphagia Mechanical Administration Type Cup Single Sip Oral Strategies Upright at 90 degrees Double Swallow Pharyngeal Phase Strategies Sitting Upright (90 deg) Chin Tuck Double Swallow Effortful Swallow Small Bites and Sips Additional Dysphagia Treatment Hyolaryngeal elevation/ Strategies excursion exercises Treatment Activities Assessed pt's safety with and tolerance of dysphagia mechanical texture and NTL. Pt consumed 2 bites of tuna sandwich and one cup sip of Ensure, which he tolerated with no overt s/sx of aspiration. He refused additional trials d/t strong dislike of taste. He expressed a desire for a cheeseburger. Pt was again education RE MBS findings, risk of aspiration with thin liquids and concern of fatigue with advanced textures. Discussed with the pt & Nsg options for friends to bring food into the hospital for him as long as that food was within dysphagia mechanical texture and NTL parameters (e.g., soft cheeseburger deana cut into small pieces with sauce, clam chowder or other creamy soups, fruit/vegetable smoothies made with yogurt, etc.). Recommended foods/liquids be nutrient dense to promote physical strength and healing necessary for advancing diet and stablizing medical condition. The pt was encouraged to think of food as medicine and consume despite dislike of taste in order to increase nutrition, hydration, and wellness. Trained pt in exercises to increase hyolaryngeal strength necessary to improve stamina and airway protection with swallow. Instructions provided orally with demonstration and in writing. Pt returned demonstration and verbalized understanding. Assessment Patient Response to Treatment Fair Rehab Potential Good Assessment of Improvement The pt verbalizes understanding of aspiration risks/precautions and recommendations for diet/ liquids, compensatory swallow strategies, and exercises. He is able to perform all exercises. He appears to be quite discouraged about his current situation and limitations in eating what he wants but was receptive to recommendations for food options to be brought in by family/friends. Although he verbalized understanding of importance of oral hygiene to prevent further pulmonary complications d/t potential aspiration of oral or pharyngeal bacteria, he did decline to brush his teeth. The pt is able to tolerate current diet and liquids with use of swallow strategies ( chin tuck, effortful and double swallows). Diet Recommendations Recommendations Continue Current Diet Comment Small meals throughout the day Liquids Order [place] Diet Order Dysphagia Mechanical Medication Recommendations As Tolerated Additional Dietary Needs Chopped Food Single Sips Reminders to Use Strategies Aspiration Precautions Recommended Precautions Upright at 90 Degrees Frequent Rest Periods Small Bites/Sips Chin Tuck Effortful Swallow Double Swallow Liquids from Cup Treatment Plan Placement Recommendation after Discharge [facility] Facility Inpatient Rehab Facility Appropriate for Continued Therapy Yes Therapy Recommendations Strict oral hygiene Dysphagia Goals Pt will safely tolerate the least-restrictive diet without s/sx aspirations. Pt will improve swallow safety with implementations of safe swallow strategies Pt will implement effortful swallow and double swallow to improve pharyngeal clearance of all PO intake. Pt will participate in consistent oral hygiene to reduce risk of pneumonia from potential aspiration of saliva . Referrals/Other Recommended Referrals Dietary Consult
--- NOTE | 2018-04-07 16:37 | CM.DPC ---
DCP: continued: Spoke with [facility]. She will be here tomorrow at 1400 to see pt and discuss possible admission to [facility]. Dr. Levin was updated today when he was here as was Dr. Cedillo. Vm is left for pt's mother Chiquita re above and hopefully she can be here during that time. Will follow tomorrow. all will be dependent on whether [facility] will authorize the stay.
[2018-04-07] MEDS: [UNRECOGNIZED DRUG - REMARK] 68.36 ML IV (18:20)
[2018-04-07] MEDS: WARFARIN 5 MG TABLET PO (18:21)
[2018-04-07] MEDS: DRONABINOL 2.5 MG CAPSULE PO ×2 (18:21→21:07)
[2018-04-07] MEDS: FAT EMULSIONS 50 GM/250 ML EMULSION IV (18:21)
[2018-04-08] VITALS (8 sets, daily range): BP systolic 108–112; BP diastolic 65–68; PULSE 86–96; RESP 14–20; TEMP 36.4–37.5; O2SAT 96–100
[2018-04-08] MEDS: metroNIDAZOLE 500 MG/100 ML PIGGYBACK 100 MG IV ×4 (04:17→22:09)
--- NOTE | 2018-04-08 08:08 | CM.DPC ---
DCP: continued: No vm noted this morning from Chiquita re the [facility] appt today at 1400. Left another message for her now on the [phone] line. Will continue to follow.
--- NOTE | 2018-04-08 08:37 | PC.NURSE ---
Addendum entered by Kiko Powell R.N. 04/08/18 10:19: Patient up in shower with OT at this time. Discussed with patient foods he may be willing to eat. Patient educated on importance of taking PO food and fluids despite not enjoying nectar consistency and foods. Patient verbalizes understanding. Patient amenable to trying clam chowder for lunch today. Original Note: MD at bedside at this time. Patient declines to drink oral contrast for CT scan. MD speaks with patient regarding this. Education provided. Patient continues to decline citing dislike for the thickener. Per MD, CT cancelled. CT notified.
[2018-04-08] MEDS: SERTRALINE 50 MG TABLET PO (09:25)
[2018-04-08] MEDS: DRONABINOL 2.5 MG CAPSULE PO ×3 (09:25→22:08)
[2018-04-08] MEDS: ARIPiprazole 10 MG TABLET 5 MG PO (09:25)
[2018-04-08] MEDS: ENOXAPARIN 60 MG/0.6 ML SYRINGE 50 MG SUBCUT ×2 (09:26→22:08)
[2018-04-08] MEDS: TIGECYCLINE 50 MG in SODIUM CHLORIDE 0.9% 100 ML 200 ML IV ×2 (09:26→22:07)
--- NOTE | 2018-04-08 12:10 | P.PN_ITS ---
Subjective Interval history: No new complaints. Denies pain. No shortness of breath currently. Remains with productive cough of thick sputum. However, he is now stable on room air. Denies dyspnea or shortness of breath. Appetite remains poor. Overall he remains depressed and is not particularly interested in participating in his own care at this time. Exam Vital Signs (past 8 hours): Vital Signs - 8 hr 3 04/08/18 05:55 04/08/18 08:00 Temperature 99.5 F Pulse Rate 86 Respiratory Rate 14 Blood Pressure 110/65 Pulse Oximetry 97 100 Pulse Oximetry 100 Fraction of Inspired Oxygen 30 Oxygen Delivery Method Room Air Oxygen Flow Rate 0 Narrative Exam Narrative: No acute distress. Alert oriented x3. Sclera nonicteric Regular rate and rhythm. Rhonchi that clear with cough Abdomen soft, nondistended, nontender, no masses. Wound remained stable as per yesterday's exam. Ileostomy continues to have normal output. Objective Labs Result Diagrams: 04/06/18 05:05 04/07/18 05:03 Assessment & Plan Plan: Plan: 43-year-old male with resolution of sepsis and relative hypoxia yesterday. Hypoxia may very well have been due to thick secretions and mucus plugging. We had scheduled a CT scan of the chest, abdomen, and pelvis today with oral and IV contrast. However, the patient refused to drink the oral contrast. Therefore I do not believe that a repeat CT scan today without oral contrast with offers much more information beyond that which was obtained several days ago. I therefore have canceled the CT scan for today. Repeat CBC, basic metabolic panel, calcium, phosphorous, and protime tomorrow. Continue anticoagulation as per the internal medicine service for pulmonary embolism. We can discontinue the therapeutic Lovenox once his INR is above 2.0. Continue to ambulate as much as possible with physical therapy. Continue aspiration precautions as per the modified barium swallow study and speech pathology evaluation yesterday. TPN will continue at custom formula with increased volume per dietary recommendations. Otherwise he may have oral nutrition as tolerated with the above speech and aspiration precautions. If white blood cell count is normalizing on tomorrow laboratory studies then will discontinue antibiotics. Continue current wound care. He may require some debridement at the bedside of the fibrin is exudate along with removal of the Prolene suture as a foreign body. Overall, his depression is significant and I do not believe that he will recover or even survive the current episode if he is unable to control this issue adequately. He has been restarted on his usual medicines per the internal medicine service. I would not disagree with a psychiatry evaluation if the patient is agreeable to such. In addition, I continue to believe the patient would mostly benefit from long-term rehabilitation. He is to undergo evaluation for such this afternoon. I spent some time discussing this with him in detail. All questions were answered to his satisfaction, and he voiced understanding. Orders were written. Quality VTE Deep Vein Thrombosis/Pulmonary Embolism Present on Admission: No
--- NOTE | 2018-04-08 13:33 | ST.IPTN ---
LUMBER CARRIER Dysphagia Treatment LUMBER CARRIER Dysphagia Treatment Start: 04/06/18 13:05 Freq: Status: Active Protocol: Document 04/08/18 13:18 MRM (Rec: 04/08/18 13:32 MRM [id number]) Dysphagia Treatment Session Time Visit Start Time 12:30 Visit Stop Time 12:50 Total Visit Minutes 20 Setting Assessment Location Acute Care Visit Type Note Type Treatment Note Next Note Type Next Note Type Treatment Note Patient Information Identification Type Name Subjective Observations Patient seen with lunch. He was sitting upright in the chair with no family present. He had no complaints of pain pre/post treatment. His vocal quality was improved since he was last seen yesterday. He is still expelling thick secretions, but these also seem to be improving. LUMBER CARRIER reviewed the patient's current diet order and reasoning, discussing at length, the implications of aspiration and pneumonia on the body system as a whole. LUMBER CARRIER discussed reasoning behind an altered diet, specifically thickened liquids, stating that the patient has a good chance of improvement if he continues to particiapte with therapy, continues to eat to gain necessary nutrition/strength, and continue with thickened liquids to reduce the chance of aspiration. The patient verbalized understanding of this and stated, I'm willing to work with boundaries. LUMBER CARRIER encouraged the patient to participate with therapy and implement strategies to improve laryngeal strength in order to trial thin liquids again. LUMBER CARRIER also explained how to improve the quality of nectar thick liquids (ice bath , vary temperatures, etc). He was interested in this and verbalized understanding. The patient discussed his discharge plan with LUMBER CARRIER and stated that he wishes to go home and let his mom take care of him. LUMBER CARRIER discussed LTAC v. Home Health and stressed the importance of having therapy continue after discharge. The patient agreed to this. He did state that he was worried that there would not be a bed for him at an LTAC facility. He also stated that he is feelign depressed about his overall status. RN, Kiko, has ordered a Psyche evaluation for this. Finally, LUMBER CARRIER did discuss the free water protocol with the patient and stressed the importance of thorough oral care prior to trialing thin liquid. LUMBER CARRIER also explained the delicate situation regarding the patient's current lung status and the mandatory importance that he consistently compeltes thorough oral care if he wants to take a few sips of thin liquid. The patient declined to participate with this. No free water protocol at this time. Treatment Liquids Trialed [place] Solids Trialed Dysphagia Mechanical Administration Type Cup Single Sip Staw Self-Feeding Oral Strategies Upright at 90 degrees Double Swallow Alternate Liquids/Solids Pharyngeal Phase Strategies Sitting Upright (90 deg) Chin Tuck Double Swallow Effortful Swallow [place] Maneuver Small Bites and Sips Alternate Liquids/Solids Additional Dysphagia Treatment Frequent rest periods Strategies Treatment Activities Patient independently tolerated clam chowder and nectar thick liquids without overt s/s of aspraiton. LUMBER CARRIER did not 1-2 episodes of coughing with suction. Not suspected to be secondary to aspiration, but rather to his ongoing cough/expectoration of thick pulmonary secretions. He verbalized compliance to tolerate nectar thick liquids and a soft diet. No additional solids trialed due to the patient's fatigue. He did state that he would like to eat again a little later today . Patient currently tolerating his diet of nectar thick liquids and dysphagia mechanical textures well. Assessment Patient Response to Treatment Good Rehab Potential Good Assessment of Improvement Patient is improving slowly. Able to tolerate nectar thick liquids and dysphagia mechancial textures with improved endurance. No overt s /s of aspiraiton observed throughout meal. Declined trials of more solid textures due to gradual onset of fatigue. Improving oropahrygneal function and vocal qualtiy. Continue therapy. Diet Recommendations Recommendations Continue Current Diet Liquids Order [place] Diet Order Dysphagia Mechanical Medication Recommendations As Tolerated Additional Dietary Needs Chopped Food Single Sips Reminders to Use Strategies Aspiration Precautions Recommended Precautions Upright at 90 Degrees Frequent Rest Periods Small Bites/Sips Chin Tuck Effortful Swallow Double Swallow Liquids from Cup Treatment Plan Placement Recommendation after Discharge Inpatient Rehab Facility Residential Care Facility Appropriate for Continued Therapy Yes Therapy Recommendations Strict oral hygiene Dysphagia strategies for laryngeal elevation and strength. Dysphagia Goals Pt will safely tolerate the least-restrictive diet without s/sx aspirations. Pt will improve swallow safety with implementations of safe swallow strategies Pt will implement effortful swallow and double swallow to improve pharyngeal clearance of all PO intake. Pt will participate in consistent oral hygiene to reduce risk of pneumonia from potential aspiration of saliva . Follow Up Plan LUMBER CARRIER follow up x2 a day while admitted in inpt status
--- NOTE | 2018-04-08 14:20 | SLP.IPNOTE ---
MAID CLEANING COOKING spoke with family and airline security representative from [facility] to review results of the MBS performed on 04/07/18. MAID CLEANING COOKING reinforced reasoning behind current diet order and precautions to prevent additional aspiration. MAID CLEANING COOKING discussed optimistic outlook for the patient's swallow function as he continues to eat by mouth and gain necessary strength. The family verbalized understanding and had no additional questions.
--- NOTE | 2018-04-08 15:03 | DIET.PN ---
Met with pt and mother at bedside this afternoon. RDs continue to be concerned with pt's minimal PO intake, which pt says is due to dislike of Ensure Surg (too sweet), dislike / refusal of NTL, and dislike of meals prepared onsite. He received some clam chowder from a restaurant in [facility] for lunch today and ate some of it. Kitchen staff is also planning to fortify his meals with Benepro to support increased protein intake. Discussed importance of continuing to increase PO intake (which I know LOADER UNLOADER is also regularly emphasizing to pt). Reminded Collin and his mother that TPN is not a preferred long-term solution. It will keep him alive but will not really set him up to thrive - get back to living independently, get back to work, etc. Also reminded them that with prolonged TPN, there is higher likelihood of complications that can/will be avoided if he is able to get enough calories, protein, nutrients PO. Overall pt's demeanor appeared dramatically improved this afternoon from what I have seen on previous interactions. This AM Kiko (RN) and I discussed possibility that depression is affecting pt's motivation to eat, which is highly likely, vic considering his personal and family hx of depression. Kiko was planning to request psych consult from . Otherwise RDs continue providing encouragement to eat whatever pt can (within limits currently established by LOADER UNLOADER), and kitchen is doing as much as they can to prepare foods he will enjoy. Will continue to monitor regularly. May Ziegler, investigator internal revenue Bindu Ware RDN
--- NOTE | 2018-04-08 16:09 | PT.IPTN ---
Current Diagnoses Sepsis, unspecified organism (03/22/18) Hypocalcemia (03/22/18) Hypokalemia (03/22/18) Other pulmonary embolism without acute cor pulmonale (03/22/18) Chronic pulmonary edema (03/22/18) Acute postprocedural respiratory failure (03/22/18) Ulcerative colitis, unspecified, without complications (03/22/18) Perforation of intestine (nontraumatic) (03/22/18) Shortness of breath (03/22/18) Severe sepsis with septic shock (03/22/18) Physical Therapy Treatment Note M2 PT-IP Current Condition Start: 03/28/18 17:17 Freq: NEEDED Status: Active Protocol: Document 04/01/18 15:10 RCC (Rec: 04/01/18 16:30 RCC [id number]) Physical Therapy Current Condition Current Condition Evaluation Date 03/28/18 Treatment Diagnosis post-op colectomy for perforated bowel Onset Date 03/22/18 Post Operative Precautions Abdominal Surgery Precautions Log Roll Lifting Restrictions Gait Belt above Incisional Area Other Precautions contact precautions: MRSA on nares M3 PT-IP Subjective Start: 03/28/18 17:17 Freq: NEEDED Status: Active Protocol: Document 04/08/18 13:05 CLB (Rec: 04/08/18 16:08 CLB [id number]) Subjective Physical Therapy Visit Type Type Treatment Note Visit Start Time 13:05 Visit Stop Time 13:30 Total Visit Minutes 25 Number of SOIL SCIENCE TECHNICAL OFFICER Visits 4 Physical Therapy Visit Comments Patient Comments Pt stated he didn't want to do therapy, with encouragement he did agree to do therapy. M4 PT-IP Mobility and Gait Start: 03/28/18 17:17 Freq: NEEDED Status: Active Protocol: Document 04/08/18 13:05 CLB (Rec: 04/08/18 16:08 CLB [id number]) PT-Bed Mobility Assessment Rolling Type of Rolling Log Rolling Level of Assist Standby Assistance Supine to Sit Supine to Sit Standby Assistance Sit to Supine Sit to Supine Standby Assistance Scooting Scooting to Edge of Bed Standby Assistance Scooting Up and Down in Bed Standby Assistance PT-Transfer Assessment Sit to and From Stand Sit to and from Stand Standby Assistance Equipment Transfer Assistive Device Gait Belt 4 Wheeled Walker Transfers Transfer Destination Bed Transfer Technique walk Transfer Ability Level of Assist Standby Assistance Comments Mobility Comments Pt SBA for all mobility. Gait Assessment Gait Gait Assistance Required: Standby Assistance Distance (Feet) (feet) 150 Able to Maintain Weight Bearing Status Yes During Gait Assistive Devices Assistive Device Gait Belt 4 Wheeled Walker Gait Deviations General Gait Pattern Within Normal Limits Flexed Trunk Factors Limiting Gait Function Factors Limiting Gait Function Decreased Activity Tolerance Decreased Strength Comments Gait Comments Pt able to ambulate in mercedes with assist of IV Pole. M5 PT-IP Objective Assessments Start: 03/28/18 17:17 Freq: NEEDED Status: Active Protocol: Document 03/28/18 17:17 AB (Rec: 03/28/18 17:27 AB [id number]) Orientation Orientation/Cognition Level of Alertness Alert Orientation Name Situation Strength Lower Extremity Strength Assessment Bilaterally Impaired Hip 3+/5 Knee 3/5 Ankle 3+/5 M6 PT-IP Treatment Start: 03/28/18 17:17 Freq: NEEDED Status: Active Protocol: Document 04/08/18 13:05 CLB (Rec: 04/08/18 16:08 CLB [id number]) Physical Therapy Treatment Exercises Exercises Gluteal Sets Quad Sets Heel Slides Other Treatments Other Treatment Performed Standing at counter: mini squats Hip abd SLS M7 PT-IP Assessment and Plan Start: 03/28/18 17:17 Freq: NEEDED Status: Active Protocol: Document 04/08/18 13:05 CLB (Rec: 04/08/18 16:08 CLB [id number]) PT Summary Assessment and Plan Summary Assessment Summary Pt needs encourage to participate in therapy. Pt is SBA for all mobility and continues to need ther ex to improve strength and endurance . Frequency of Treatment Frequency Of Treatment Once a Day Treatment Plan Other Recommendations and Next Treatment ambulate and ther ex. Focus Recommendations To Nursing Amount of Assist Needed 1 Person Assist Discharge Recommendations PT Discharge Recommendations Home with Assistance Home Health
--- NOTE | 2018-04-08 16:52 | PM.PN.1 ---
Subjective Interval history: No new complaints. Denies pain. No shortness of breath currently. Denies dyspnea or shortness of breath. Appetite remains poor. Overall he remains depressed and is not particularly interested in participating in his own care at this time. Exam Vital Signs (past 8 hours): Vital Signs - 8 hr 04/08/18 09:00 04/08/18 16:00 04/08/18 16:41 Temperature 98.2 F Pulse Rate 96 H Respiratory Rate 20 Blood Pressure 112/68 Pulse Oximetry 99 99 96 Pulse Oximetry 96 Fraction of Inspired Oxygen 30 Oxygen Delivery Method Room Air Oxygen Flow Rate 0 Narrative Exam Narrative: GENERAL: Thin middle-aged man in no acute distress. CHEST: Clear to auscultation bilaterally CARDIAC: Regular rate and rhythm ABDOMEN: Soft, nontender. No guarding or rebound. Ostomy has normal output. Anterior abdominal wound was dressed and dressing EXTREMITIES: Severe muscle atrophy in upper and lower extremities, no edema. NEUROLOGICAL: Alert and oriented; Normal muscle strength. Psychiatric exam: Depressed mood SKIN: Warm, dry, no petechiae, no rashes or lesions. Objective Labs Result Diagrams: 04/06/18 05:05 04/07/18 05:03 Assessment & Plan Plan: Plan: 1. Acute pulmonary embolism: Clinically stable. Full-dose Lovenox was initiated on the evening of 04/03/2018. Continue Lovenox 50 mg every 12 hr for 5-7 days and until INR is above 2.0. Started patient on warfarin 4 mg q.p.m. as of 04/04/2018. INR 1.6 on 04/07/2018. Warfarin dose increased up to 5 mg q.p.m. as of 04/07/2018. Recheck INR on 04/09/2018. Patient can follow with Dr. Cedillo at [facility] for outpatient monitoring. He should complete 90 day duration of oral anticoagulant therapy. 2. Aspiration pneumonia with acute hypoxic respiratory failure: He is on 4 L O2 nasal cannula. Continue Tygacil and metronidazole. Note elevated rising WBC unclear whether due to wound infection or pneumonia. 3. Depression: Continue Abilify 5 mg daily. He is also on sertraline 50 mg daily. I have asked Dr. Finney our psychiatrist for psychiatric consultation. Dr. Finney is not available tomorrow. She is willing to see patients Friday facility coordinator if he is still in the hospital by then. If he happened to be transferred to LTAC tomorrow, he should see a psychiatrist at the LTAC. 4. 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 Taking food by mouth. Also on TPN. Managed by surgery. 5. Septic shock: Resolved. Antibiotics per surgery. 6. Severe protein calorie malnutrition secondary to acute on chronic illness: He is on TPN for nutritional support. Encourage oral intake. Continue monitor his nutritional status. 7. Dysphagia: Likely secondary to muscle weakness. Followed by speech pathology. He is currently on nectar thick liquid. 8. Disposition: He had an interview with [place] earlier this afternoon. We will follow up with shoe parts caser in the morning regarding to discharge planning. He is a good candidate for long-term acute care facility due to requiring TPN for minimum of a month for nutritional support and wound care for the abdominal wound and intensive PT and OT treatments. Quality VTE Deep Vein Thrombosis/Pulmonary Embolism Present on Admission: Yes
--- NOTE | 2018-04-08 17:00 | P.PN_ITS ---
Subjective Interval history: No new complaints. Denies pain. No shortness of breath currently. Denies dyspnea or shortness of breath. Appetite remains poor. Overall he remains depressed and is not particularly interested in participating in his own care at this time. Exam Vital Signs (past 8 hours): Vital Signs - 8 hr 3 04/08/18 09:00 04/08/18 16:00 04/08/18 16:41 Temperature 98.2 F Pulse Rate 96 H Respiratory Rate 20 Blood Pressure 112/68 Pulse Oximetry 99 99 96 Pulse Oximetry 96 Fraction of Inspired Oxygen 30 Oxygen Delivery Method Room Air Oxygen Flow Rate 0 Narrative Exam Narrative: GENERAL: Thin middle-aged man in no acute distress. CHEST: Clear to auscultation bilaterally CARDIAC: Regular rate and rhythm ABDOMEN: Soft, nontender. No guarding or rebound. Ostomy has normal output. Anterior abdominal wound was dressed and dressing EXTREMITIES: Severe muscle atrophy in upper and lower extremities, no edema. NEUROLOGICAL: Alert and oriented; Normal muscle strength. Psychiatric exam: Depressed mood SKIN: Warm, dry, no petechiae, no rashes or lesions. Objective Labs Result Diagrams: 04/06/18 05:05 04/07/18 05:03 Assessment & Plan Plan: Plan: 1. Acute pulmonary embolism: Clinically stable. Full-dose Lovenox was initiated on the evening of 04/03/2018. Continue Lovenox 50 mg every 12 hr for 5-7 days and until INR is above 2.0. Started patient on warfarin 4 mg q.p.m. as of 04/04/2018. INR 1.6 on 04/07/2018. Warfarin dose increased up to 5 mg q.p.m. as of 04/07/2018. Recheck INR on 04/09/2018. Patient can follow with Dr. Cedillo at [facility] for outpatient monitoring. He should complete 90 day duration of oral anticoagulant therapy. 2. Aspiration pneumonia with acute hypoxic respiratory failure: He is on 4 L O2 nasal cannula. Continue Tygacil and metronidazole. Note elevated rising WBC unclear whether due to wound infection or pneumonia. 3. Depression: Continue Abilify 5 mg daily. He is also on sertraline 50 mg daily. I have asked Dr. Finney our psychiatrist for psychiatric consultation. Dr. Finney is not available tomorrow. She is willing to see patients Zhang car repair supervisor if he is still in the hospital by then. If he happened to be transferred to LTAC tomorrow, he should see a psychiatrist at the LTAC. 4. 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 Taking food by mouth. Also on TPN. Managed by surgery. 5. Septic shock: Resolved. Antibiotics per surgery. 6. Severe protein calorie malnutrition secondary to acute on chronic illness: He is on TPN for nutritional support. Encourage oral intake. Continue monitor his nutritional status. 7. Dysphagia: Likely secondary to muscle weakness. Followed by speech pathology. He is currently on nectar thick liquid. 8. Disposition: He had an interview with [place] earlier this afternoon. We will follow up with case aide in the morning regarding to discharge planning. He is a good candidate for long-term acute care facility due to requiring TPN for minimum of a month for nutritional support and wound care for the abdominal wound and intensive PT and OT treatments. Quality VTE Deep Vein Thrombosis/Pulmonary Embolism Present on Admission: Yes
[2018-04-08] MEDS: WARFARIN 5 MG TABLET PO (17:07)
--- NOTE | 2018-04-08 17:11 | OT.IP.TRT ---
Current Diagnoses Sepsis, unspecified organism (03/22/18) Hypocalcemia (03/22/18) Hypokalemia (03/22/18) Other pulmonary embolism without acute cor pulmonale (03/22/18) Chronic pulmonary edema (03/22/18) Acute postprocedural respiratory failure (03/22/18) Ulcerative colitis, unspecified, without complications (03/22/18) Perforation of intestine (nontraumatic) (03/22/18) Shortness of breath (03/22/18) Severe sepsis with septic shock (03/22/18) Occupational Therapy Treatment Note M2 OT-IP Current Condition Start: 04/07/18 15:30 Freq: Status: Active Protocol: Document 04/07/18 15:26 PJM (Rec: 04/07/18 15:50 PJM [id number]) Occupational Therapy Current Condition Current Condition Evaluation Date 04/07/18 Treatment Diagnosis decreased BUE/hand strength, endurance and self care skills Diagnosis Onset Date 03/22/18 Post Operative Precautions Abdominal Surgery Precautions Log Roll Lifting Restrictions Gait Belt above Incisional Area Other Precautions open abdominal incision with wet to dry dressings and new ileostomy M3 OT- IP Subjective and Pain Start: 04/07/18 15:30 Freq: Status: Active Protocol: Document 04/08/18 16:55 PJM (Rec: 04/08/18 17:11 PJM [id number]) OT- Subjective Occupational Therapy Visit Type Type Treatment Note Visit Start Time 09:56 Visit Stop Time 10:40 Total Visit Minutes 44 Notes Pt agreeable to tx at agreed upon time with encouragement. Occupational Therapy Visit Comments Patient Comments Okay, I will take a shower, but I need warm blankets afterwards because I get so cold. 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 OT ADL-Oral Care Comments Oral Care Comments Discussed with S.T. who will get suction toothbrush for pt use to improve oral care around orthodontia. OT ADL-Dressing General Eval Lower Body Dressing Ability Moderate Assistance Areas Needing Assistance Retrieving/Set-up of Clothing Underpants/Brief Socks Assistive Devices Dressing Assistive Devices College Teacher Comments OT Dressing Comments Pt total assist to don socks in shower area due to fatigue. Pt SBA to doff socks with plant equipment engineer. Min assist to don brief with plant equipment engineer. Mod verbal cues for unfamiliar techniques. OT ADL-Bathing Bathing Type Bathing Type Shower General Evaluation Bathing Ability Minimal Assistance Areas Needing Assistance Retrieving/Setting Up Items Wash/Dry Lower Extremities Devices Bathing Equipment Hand Held Shower Sprayer Shower Chair without Arms Grab Bars Comments OT Bathing Comments Pt needs min cues for thoroughness and sequencing. M5 OT- IP IADL's Start: 04/07/18 15:30 Freq: Status: Active Protocol: Document 04/07/18 15:26 PJM (Rec: 04/07/18 15:50 PJ [id number]) OT-Instrumental Activities of Daily Living Deficits IADL Deficits Identified Deficits Home Safety Awareness Awareness of Need for Assistance at Home Decreased Awareness Meal Preparation Meal Preparation Comments total assist on modified diet at present, DMA w/nectar thicks Books Salesperson Books Salesperson Comments Total assist Driving Driving Comments pt unable to drive at present M6 OT- IP Functional Cognition Start: 04/07/18 15:30 Freq: Status: Active Protocol: Document 04/07/18 15:26 PJM (Rec: 04/07/18 15:50 PJ [id number]) Cognitive Factors Limiting Selfcare Function Cognitive Ability Level of Alertness Alert Patient Orientation Name Month Date Year Place Situation Attention Span Ability Capable of Focused Attention Ability to Follow Commands Able to Follow One Step Commands Safety Awareness Underestimates Need for Assistance Cognitive Comments Cognitive Assessment Comments flat affect, some decreased insight into current care needs OT- Vision and Hearing OT- Hearing Assessment OT- Hearing Assessment WFL OT- Vision Assessment Visual Acuity WFL Contact Lenses Visual Attentiveness WFL Vision Assessment Comments Pt able to put in/remove soft contacts independently. He denies any new vision deficits . M7 OT- IP Mobility and Balance Start: 04/07/18 15:30 Freq: Status: Active Protocol: Document 04/08/18 16:55 PJM (Rec: 04/08/18 17:11 PJM [email or web address]) OT- Bed Mobility Assessment Rolling Type of Rolling Roll to Right Level of Assistance Standby Assistance Head of Bed Elevated Bedrails Supine to Sit Supine to Sit Assist Standby Assistance Head of Bed Elevated Bedrails OT-Transfer Assessment Sit to and From Stand Sit to and from Stand Contact Guard Assistance Transfers Transfer Ability Contact Guard Assistance Technique Transfer Destination Chair Shower Stall Transfer Technique Stand Step Pivot Devices Transfer Assistive Devices Front Wheeled Walker Comments Mobility Comments Pt using grab bars in shower stall to step over 1 threshold. OT- Gait Assessment Gait Gait Assistance Required: Contact Guard Assist Distance (Feet) (feet) 25 Assistive Devices Assistive Device Gait Belt Front Wheeled Walker Comments Gait Ability Comments Needs min cues to avoid hitting objects with FWW. OT- Balance Assessment Sitting Balance and Reactions Static Sitting Balance Ability Good Dynamic Sitting Balance Ability Fair Standing Balance and Reactions Static Standing Balance Ability Fair Dynamic Standing Balance Ability Fair M8 OT- IP Objective Assessments Start: 04/07/18 15:30 Freq: Status: Active Protocol: Document 04/07/18 15:26 PJM (Rec: 04/07/18 15:50 PJ [id number]) OT Gross Range of Motion Upper Extremity Range of Motion Assessment Within Functional Limits OT Strength Upper Extremity Strength Shoulder 4/5 R shoulder weaker than L Elbow 4/5 Forearm 4/5 Wrist 4/5 Hand 4-/5 with intrinsic atrophy noted Hand Scabbler Strength Hand Dominance Right Comments Strength Comments Pt agreeable to starting BUE strengthening program OT- Coordination Assessment Comments Coordination Comments Pt able to insert contact lenses independently. OT-Muscle Tone Assessment Muscle Tone WNL Yes OT Sensation Assessment Comments Summary Comments Pt denies sensory deficits in BUE's Edema Edema Absent M9 OT- IP Assessment and Plan Start: 04/07/18 15:30 Freq: Status: Active Protocol: Document 04/08/18 16:55 PJM (Rec: 04/08/18 17:11 PJ [id number]) OT Summary Assessment and Plan Potential Rehabilitation Potential Good Summary OT Impairments Strength Balance Functional Mobility Dressing Toileting Bathing Toilet Transfers Shower Transfers Progress Towards Goals Slow Progress due to Medical Issues Slow Progress due to Activity Tolerance Assessment Summary Pt needs encouragement and pre -scheduled time to maximize participation in therapy. Pt has flat affect, needs max cues to initiate OOB activity. He has decreased activity tolerance and very fatigued after shower. O2 sats in high 90's on room air after shower, HR 118-119. RN aware. Pt presently requires min assist with dressing and showering. Pt agreed to get OOB for all 3 meals and this was posted on white board in room. Pt will need long term care pharmacist acute care vs SNF for further rehab when medically stable for discharge . Goals Self-Feeding Goal Independent Grooming Goal Standby Assistance Dressing Goal Standby Assistance Toileting Goal Standby Assistance Bathing Goal Standby Assistance Toilet Transfer Goal Standby Assistance Shower Transfer Goal Standby Assistance Patient/Caregiver Education Goal Demonstrate Post-Op Precautions Demonstrate Energy Conservation and Pacing Caregiver Independent Assisting Patient OT-Other Goals Pt to be indep with BUE/hand strengthening program with good technique. Frequency of Treatment Frequency Of Treatment Once a Day Treatment Plan OT Treatment Plan ADL Training Functional Mobility Therapeutic Exercises Other Treatment Recommendations and Next grooming at sink, LB dressing, Treatment Focus theraband/theraputty Discharge Recommendations OT Discharge Recommendations SNF Rehab LTAC Other Discharge Recommendations D/C plan now LTAC due to high care needs including TPN vs SNF per CORPORATE EVENT PLANNER notes. Home Equipment Needs to be determined pending progress
[2018-04-08] MEDS: [UNRECOGNIZED DRUG - REMARK] 68.36 ML IV (19:12)
[2018-04-08] MEDS: FAT EMULSIONS 50 GM/250 ML EMULSION IV (19:12)
[2018-04-09] VITALS (8 sets, daily range): BP systolic 112–114; BP diastolic 70–73; PULSE 88–96; RESP 16–20; TEMP 36.3–36.6; O2SAT 95–99
[2018-04-09] MEDS: metroNIDAZOLE 500 MG/100 ML PIGGYBACK 100 MG IV (03:29)
[2018-04-09 05:50] LABS: INR 1.8 (0.9-1.3); Prothrombin Time 19.4 SECONDS (10.1-12.7)
[2018-04-09 05:53] LABS: Hematocrit 30.1 % (41-53); Hemoglobin 9.9 g/dL (13.5-17.5); Mean Corpuscular HGB Conc 32.9 % (30-36); Mean Corpuscular Hemoglobin 28.6 PG (26-34); Red Blood Cell Count 3.46 X10^6/uL (4.5-5.9); Red Cell Distribution Width 16.8 % (11.6-14.8)
[2018-04-09 06:07] LABS: BUN Creatinine Ratio 57.5 (6-22); Calcium 6.9 mg/dL (8.4-10.2); Estimated Glomerular Filt Rate > 60.0 mL/min (>60); Glucose 104 mg/dL (70-100); HEMOLYSIS 21 (0-50); Phosphorous 4.2 mg/dL (2.5-4.5); Potassium 4.3 mmol/L (3.4-5.1); Sodium 130 mmol/L (137-145)
[2018-04-09 06:15] LABS: White Blood Cell Count 34.6 X10^3/uL (4.5-11.0)
[2018-04-09 06:16] LABS: Add Manual Diff / Slide Review YES; Platelet Count 1023 X10^3/uL (150-400)
[2018-04-09] MEDS: PANTOPRAZOLE 40 MG TABLET PO (06:22)
[2018-04-09 07:08] LABS: Anisocytosis 2+; Hypochromasia 1+
--- NOTE | 2018-04-09 08:51 | P.PN_ITS ---
Subjective Interval history: No new complaints. Denies pain. No shortness of breath currently. Denies dyspnea or shortness of breath. Appetite remains poor. Overall he remains depressed. He simply wishes to be discharged from the hospital at some point. He prefers to go home under the care of a visiting home nurse and his mother. Date Patient Seen: 04/09/18 Time Patient Seen: 08:44 Exam Vital Signs (past 8 hours): Vital Signs - 8 hr 3 04/09/18 08:38 Pulse Oximetry 98 Pulse Oximetry 98 Fraction of Inspired Oxygen 30 Oxygen Delivery Method Room Air Oxygen Flow Rate 0 Narrative Exam Narrative: Patient lying comfortably in bed in no acute distress. Alert oriented x3. Better cough effort today with some sputum but not as thick as 2 days ago. Oral hygiene is better today. Sclera are nonicteric Neck supple No crackles. Regular rate and rhythm Room-air saturation 98% Good urine output. Ileostomy output remains normal with thick liquid stool. Abdomen is soft and nondistended. Minimally tender to palpation. I personally changed his wet-to-dry dressing this morning and sharply debrided the wound bed including removing the Prolene suture that was visible as well as some of the fibrinous exudate. He tolerated this well. No evidence of fistulas. Extremities show no clubbing, cyanosis, or edema. No evidence of phlebitis. PICC line appears clean. Objective Labs Result Diagrams: 04/09/18 05:14 04/09/18 05:14 Labs: Laboratory Results - last 24 hr 04/09/18 04/09/18 04/09/18 05:14 05:14 05:14 WBC 34.6 H* RBC 3.46 L Hgb 9.9 L Hct 30.1 L MCV 87.0 MCH 28.6 MCHC 32.9 RDW 16.8 H Plt Count 1023 H* Neut % (Auto) Not Reportable Lymph % (Auto) Not Reportable [place] % (Auto) Not Reportable Eos % (Auto) Not Reportable Baso % (Auto) Not Reportable Seg Neutrophils % 51.0 Band Neutrophils % 10.0 H Lymphocytes % (Manual) 17.0 L Monocytes % (Manual) 13.0 H Eosinophils % (Manual) 2.0 Metamyelocytes % 1.0 H Myelocytes % 6.0 H RBC Morphology * Hypochromasia 1+ H Anisocytosis 2+ H PT 19.4 H INR 1.8 H Sodium 130 L Potassium 4.3 Chloride 100.0 Carbon Dioxide 22.0 BUN 23.0 H Creatinine 0.40 L Estimated GFR > 60.0 BUN/Creatinine Ratio 57.5 H Glucose 104 H Calcium 6.9 L Phosphorus 4.2 Assessment & Plan Plan: Plan: 43-year-old male with leukocytosis and thrombocytosis of unclear etiology. He remains afebrile and is certainly not septic. In fact, overall he appears to be doing relatively well other than his nutritional status and poor healing as a result. Pulmonary emboli are stable and he is on anticoagulation therapy. Still waiting for his INR to become therapeutic between 2 and 2.5. Once that is achieved we can stop the Lovenox injections. He has seen Hematology in the past while residing in [place] for leukocytosis and informs me that they concluded the absence of any specific pathology. 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 At this point I would treat his thrombocytosis since his platelet count is in excess of 1 million. I therefore started him on a daily aspirin. He is at slightly increased risk of upper gastrointestinal hemorrhage while on warfarin but an aspirin per day while he has significant thrombocytosis I do not believe is an undue risk. I discussed this with him in some detail however. I will stop his antibiotics as he appears to have no septic source. We were unable to obtain a CT scan of the chest, abdomen, and pelvis yesterday as documented but I highly doubt empyema or abdominal abscess based on his overall clinical picture. Again, he has had no fevers for several days now. Small possibility of line sepsis. I will therefore have his PICC line changed today. His previous urine culture grew multiple gram-positive cocci only that were unsuitable for further characterization. However, he had been on Tygacil for at least a week afterwards. We will continue aggressive physical therapy. Continue speech therapy and encourage oral intake to improve nutritional status. Awaiting psychiatry consultation today which may be beneficial for his depression. Again , he and I discussed this today in some detail. Continue TPN. I again emphasized that this is not a long-term nutritional solution, which he understood. Overall I believe he would significantly benefit from a long-term acute care facility such as [facility]. I am doubtful that he will recover appropriately at home with visiting nursing care or in a intermediate facility given the high level of acute Care that he requires in the form of physical therapy, occupational therapy, nutritional therapy, speech therapy, central line management, TPN, wound care twice daily, and ileostomy management. I reviewed this again with him in some detail today. All questions were answered to his satisfaction, and he voiced understanding. Orders were written. Quality VTE Deep Vein Thrombosis/Pulmonary Embolism Present on Admission: Yes
[2018-04-09] MEDS: MULTIVIT,CALC,MINS/IRON/FOLIC 1 TABLET 1 TAB PO (08:55)
[2018-04-09] MEDS: ENOXAPARIN 60 MG/0.6 ML SYRINGE 50 MG SUBCUT ×2 (08:55→21:04)
[2018-04-09] MEDS: SERTRALINE 50 MG TABLET PO (08:55)
[2018-04-09] MEDS: ARIPiprazole 10 MG TABLET 5 MG PO (08:55)
[2018-04-09] MEDS: DRONABINOL 2.5 MG CAPSULE PO ×3 (09:03→21:03)
[2018-04-09] MEDS: ASPIRIN EC 325 MG TABLET PO (09:03)
--- NOTE | 2018-04-09 09:43 | P.PN_ITS ---
Subjective Interval history: Patient has no new complaints. Appetite remains poor. Denies dyspnea or significant cough but does have difficulty clearing secretions. Exam Vital Signs (past 8 hours): Vital Signs - 8 hr 3 04/09/18 08:38 Pulse Oximetry 98 Pulse Oximetry 98 Fraction of Inspired Oxygen 30 Oxygen Delivery Method Room Air Oxygen Flow Rate 0 Narrative Exam Narrative: Exam Narrative: GENERAL: Thin middle-aged man in no acute distress. CHEST: Clear to auscultation bilaterally CARDIAC: Regular rate and rhythm Extremities: No edema NEUROLOGICAL: Alert and oriented; nonfocal Psychiatric exam: Depressed mood SKIN: Warm, dry, no petechiae, no rashes or lesions. Objective Labs Result Diagrams: 04/09/18 05:14 04/09/18 05:14 Labs: Laboratory Results - last 24 hr 04/09/18 04/09/18 04/09/18 05:14 05:14 05:14 WBC 34.6 H* RBC 3.46 L Hgb 9.9 L Hct 30.1 L MCV 87.0 MCH 28.6 MCHC 32.9 RDW 16.8 H Plt Count 1023 H* Neut % (Auto) Not Reportable Lymph % (Auto) Not Reportable [place] % (Auto) Not Reportable Eos % (Auto) Not Reportable Baso % (Auto) Not Reportable Seg Neutrophils % 51.0 Band Neutrophils % 10.0 H Lymphocytes % (Manual) 17.0 L Monocytes % (Manual) 13.0 H Eosinophils % (Manual) 2.0 Metamyelocytes % 1.0 H Myelocytes % 6.0 H RBC Morphology * Hypochromasia 1+ H Anisocytosis 2+ H PT 19.4 H INR 1.8 H Sodium 130 L Potassium 4.3 Chloride 100.0 Carbon Dioxide 22.0 BUN 23.0 H Creatinine 0.40 L Estimated GFR > 60.0 BUN/Creatinine Ratio 57.5 H Glucose 104 H Calcium 6.9 L Phosphorus 4.2 Assessment & Plan Plan: Plan: 1. Acute pulmonary embolism: Clinically stable. Full-dose Lovenox was initiated on the evening of 04/03/2018. Continue Lovenox 50 mg every 12 hr for 5-7 days and until INR is above 2.0. Started patient on warfarin 4 mg q.p.m. as of 04/04/2018. INR 1.6 on 04/07/2018. Warfarin dose increased up to 5 mg q.p.m. as of 04/07/2018. INR is 1.8 on 04/09/2018. Recheck INR 04/10/2018. Patient can follow with Dr. Cedillo at [facility] for outpatient monitoring. He should complete 90 day duration of oral anticoagulant therapy. 2. Aspiration pneumonia with acute hypoxic respiratory failure: Clinically resolving. He is off of supplemental oxygen.. Continue Tygacil and metronidazole. 3. Depression: Continue Abilify 5 mg daily. He is also on sertraline [address] Finney to see patient tomorrow for psychiatric consultation. 4. 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 Taking food by mouth. Also on TPN. Managed by surgery. 5. Septic shock: Resolved. Antibiotics per surgery. Note elevated rising WBC and platelet counts unclear whether due to active infection or inflammation. PICC line being replaced on 04/10/2018 as possible source of infection. 6. Severe protein calorie malnutrition secondary to acute on chronic illness: He is on TPN for nutritional support. Encourage oral intake. Continue monitor his nutritional status. 7. Dysphagia: Likely secondary to muscle weakness. Followed by speech pathology. He is currently on nectar thick liquid. 8. Disposition: Awaiting insurance approval for transfer to [place]. Patient would benefit from LTAC and he is trying to decide whether he wants this or to return home under care of mom and with home health services. Quality VTE Deep Vein Thrombosis/Pulmonary Embolism Present on Admission: Yes
--- NOTE | 2018-04-09 11:56 | PT.IPTN ---
Current Diagnoses Sepsis, unspecified organism (03/22/18) Hypocalcemia (03/22/18) Hypokalemia (03/22/18) Other pulmonary embolism without acute cor pulmonale (03/22/18) Chronic pulmonary edema (03/22/18) Acute postprocedural respiratory failure (03/22/18) Ulcerative colitis, unspecified, without complications (03/22/18) Perforation of intestine (nontraumatic) (03/22/18) Shortness of breath (03/22/18) Severe sepsis with septic shock (03/22/18) Physical Therapy Treatment Note M2 PT-IP Current Condition Start: 03/28/18 17:17 Freq: NEEDED Status: Active Protocol: Document 04/01/18 15:10 RCC (Rec: 04/01/18 16:30 RCC [id number]) Physical Therapy Current Condition Current Condition Evaluation Date 03/28/18 Treatment Diagnosis post-op colectomy for perforated bowel Onset Date 03/22/18 Post Operative Precautions Abdominal Surgery Precautions Log Roll Lifting Restrictions Gait Belt above Incisional Area Other Precautions contact precautions: 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 M4 PT-IP Mobility and Gait Start: 03/28/18 17:17 Freq: NEEDED Status: Active Protocol: Document 04/09/18 11:52 GGD (Rec: 04/09/18 11:56 GGD [email or web address]) PT-Bed Mobility Assessment Rolling Type of Rolling Log Rolling Level of Assist Standby Assistance Supine to Sit Supine to Sit Standby Assistance Sit to Supine Sit to Supine Standby Assistance Scooting Scooting to Edge of Bed Standby Assistance Scooting Up and Down in Bed Standby Assistance PT-Transfer Assessment Sit to and From Stand Sit to and from Stand Standby Assistance Equipment Transfer Assistive Device Gait Belt 4 Wheeled Walker Transfers Transfer Destination Chair Transfer Technique walk Transfer Ability Level of Assist Standby Assistance Comments Mobility Comments Pt SBA for all mobility. Gait Assessment Gait Gait Assistance Required: Contact Guard Assist Distance (Feet) (feet) 250 Assistive Devices Assistive Device Gait Belt 4 Wheeled Walker Factors Limiting Gait Function Factors Limiting Gait Function Decreased Activity Tolerance Decreased Strength M5 PT-IP Objective Assessments Start: 03/28/18 17:17 Freq: NEEDED Status: Active Protocol: Document 03/28/18 17:17 AB (Rec: 03/28/18 17:27 AB [id number]) Orientation Orientation/Cognition Level of Alertness Alert Orientation Name Situation Strength Lower Extremity Strength Assessment Bilaterally Impaired Hip 3+/5 Knee 3/5 Ankle 3+/5 M6 PT-IP Treatment Start: 03/28/18 17:17 Freq: NEEDED Status: Active Protocol: Document 04/08/18 13:05 CLB (Rec: 04/08/18 16:08 CLB [id number]) Physical Therapy Treatment Exercises Exercises Gluteal Sets Quad Sets Heel Slides Other Treatments Other Treatment Performed Standing at counter: mini squats Hip abd SLS M7 PT-IP Assessment and Plan Start: 03/28/18 17:17 Freq: NEEDED Status: Active Protocol: Document 04/09/18 11:52 GGD (Rec: 04/09/18 11:56 GGD [email or web address]) PT Summary Assessment and Plan Summary Assessment Summary Pt improving with mobility. He fatigues quickly, but progressing slow. Frequency of Treatment Frequency Of Treatment Once a Day Treatment Plan Other Recommendations and Next Treatment Standing exercise and balance, Focus short gait. Recommendations To Nursing Amount of Assist Needed 1 Person Assist Discharge Recommendations PT Discharge Recommendations Home with Assistance Home Health
--- NOTE | 2018-04-09 13:57 | PC.NURSE ---
Ostomy Nurse Note Collin awake and willing to review ostomy teaching. He verbalized understanding of the Crusting Technique and worked with the stoma model on how to use barrier rings and strips. We reviewed pouching systems and he said he really liked the system his is currently using. I also discussed with him undergarments such as ostomy secrets and stealth belt. He will review the [facility] New Ostomy Patient Guide. He was not wanting to change his appliance today, so I changed it for him and he watched and I verbalized what I was doing. His stoma is less edematous measuring 25mm. It is moist and pink with sutures still present. The effluent is dark green, soft. His juliane-stomal skin is intact without any redness. I replaced the appliance with the same appliance we have been using all along: Convatec Moldable 45mm two piece with opaque non-filtered pouch and an adaptor. Collin's mid-line dressing was changed this morning. It is clean, dry and intact. I will follow up on Friday, April 20 for continued teaching and appliance change.
--- NOTE | 2018-04-09 15:08 | PC.NURSE ---
Silke HOLLIS changed ileostomy appliance today and did some teaching reinforment. Dressing to abdomen midline was changed this morning by Dr. Levin, remains [facility].
--- NOTE | 2018-04-09 15:36 | ST.IPTN ---
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 Nodded his head in agreement with PO trials for potential diet texture upgrade then shortly after asked what are we doing anyway? Treatment Liquids Trialed [place] Solids Trialed Regular Administration Type Cup Single Sip Staw Self-Feeding Oral Strategies Upright at 90 degrees Double Swallow Alternate Liquids/Solids Pharyngeal Phase Strategies Sitting Upright (90 deg) Chin Tuck Double Swallow Effortful Swallow [place]n Maneuver Small Bites and Sips Alternate Liquids/Solids Treatment Activities Education provided to patient regarding plan to trial advanced textures for diet upgrade in order to widen range of food available for patient to eat in an effort to increase overall intake for nutrition. Patient was in agreement; however, refused any subsequent trials after one bite of string cheese and one sip of nectar thickened gatorade. With these, he required min cues to implement chin tuck and double swallow. Assessment Patient Response to Treatment Fair Rehab Potential Fair Assessment of Improvement Patient continues to have diminished appetite. He verbalized understanding of plan to upgrade diet textures in order to allow him more freedom in eating, but he declined further trials making it difficult to fully assess his safety with advanced textures. For this reason, recommend continue current diet at this time with advanced trials of both textures and liquids in future therapy sessions. Diet Recommendations Recommendations Continue Current Diet Liquids Order [place] Diet Order Dysphagia Mechanical Medication Recommendations As Tolerated Additional Dietary Needs Reminders to Use Strategies Aspiration Precautions Recommended Precautions Upright at 90 Degrees Small Bites/Sips Chin Tuck Double Swallow Additional Precautions Encourage oral care Treatment Plan Placement Recommendation after Discharge Nursing Home Care Facility Appropriate for Continued Therapy Yes Therapy Recommendations Strict oral hygiene Dysphagia strategies for laryngeal elevation and strength. Dysphagia Goals Pt will safely tolerate the least-restrictive diet without s/sx aspirations. Pt will improve swallow safety with implementations of safe swallow strategies Pt will implement effortful swallow and double swallow to improve pharyngeal clearance of all PO intake. Pt will participate in consistent oral hygiene to reduce risk of pneumonia from potential aspiration of saliva .
--- NOTE | 2018-04-09 16:27 | DI.RAD.S_ITS ---
PROCEDURE: XR CHEST FOR PICC 1V INDICATIONS: line placement TECHNIQUE: One view of the chest was acquired. COMPARISON: [facility], , XR CHEST 1V, 04/06/2018, 20:04. FINDINGS: Surgical changes and devices: There is a right-sided PICC line catheter, which has been placed in the interim with the tip overlying the low superior vena cava. The left-sided PICC line catheter does not appear to have significantly changed. Lungs and pleura: Interstitial prominence within the lung bases is identified. The aeration of the lungs is unchanged. Mediastinum: Mediastinal contours appear normal. Heart size is normal. Bones and chest wall: No suspicious bony lesions. Overlying soft tissues appear unremarkable. IMPRESSION: Right-sided PICC line catheter is positioned with the tip overlying the low superior vena cava. Dictated by: Inocencio Reagan M.D. on 04/09/2018 at 15:52 Approved by: Inocencio Reagan M.D. on 04/09/2018 at 15:54
[2018-04-09] MEDS: [UNRECOGNIZED DRUG - REMARK] 68.4 ML IV (17:13)
[2018-04-09] MEDS: FAT EMULSIONS 50 GM/250 ML EMULSION IV (17:14)
[2018-04-09] MEDS: WARFARIN 5 MG TABLET PO (17:15)
--- NOTE | 2018-04-09 17:16 | CM.DPC ---
DCP: continued: Cleopatra/[facility] was here yesterday and 1400 to met with pt and Chiquita and other care team members. She confirmed that pt was accepted by the facility physician ([facility]) and that all that was needed was the Alberto authorization. Pt and Chiquita remained a bit ambivalent re this plan but ultimately agreeable. More discussion expected when/if the authorization is obtained Dr. Levin was updated this morning. He will be off several days, his surgical team will follow. He remains clear that [place] setting is best place for pt to transition for ongoing recovery if he is to have a change to getting home to his mother's house. Remy has given an authorization extension for Adult acute Medical: 04/07-04/13 with updated or a d/c 04/14. was updated re this. updated clinical should be faxed again to [facility] tomorrow. P: remains: Cleopatra peninding authr vs eventual home with services and mother's support
--- NOTE | 2018-04-09 17:38 | OT.IP.TRT ---
Current Diagnoses Sepsis, unspecified organism (03/22/18) Hypocalcemia (03/22/18) Hypokalemia (03/22/18) Other pulmonary embolism without acute cor pulmonale (03/22/18) Chronic pulmonary edema (03/22/18) Acute postprocedural respiratory failure (03/22/18) Ulcerative colitis, unspecified, without complications (03/22/18) Perforation of intestine (nontraumatic) (03/22/18) Shortness of breath (03/22/18) Severe sepsis with septic shock (03/22/18) Occupational Therapy Treatment Note M2 OT-IP Current Condition Start: 04/07/18 15:30 Freq: Status: Active Protocol: Document 04/07/18 15:26 PJM (Rec: 04/07/18 15:50 PJM [id number]) Occupational Therapy Current Condition Current Condition Evaluation Date 04/07/18 Treatment Diagnosis decreased BUE/hand strength, endurance and self care skills Diagnosis Onset Date 03/22/18 Post Operative Precautions Abdominal Surgery Precautions Log Roll Lifting Restrictions Gait Belt above Incisional Area Other Precautions open abdominal incision with wet to dry dressings and new ileostomy M3 OT- IP Subjective and Pain Start: 04/07/18 15:30 Freq: Status: Active Protocol: Document 04/09/18 17:27 PJM (Rec: 04/09/18 17:38 PJM [id number]) OT- Subjective Occupational Therapy Visit Type Type Treatment Note Visit Start Time 13:45 Visit Stop Time 14:05 Total Visit Minutes 20 Notes Pt resting in bed with sister present; agreeable to tx with encouragement. Occupational Therapy Visit Comments Patient Comments I have had a really busy day . 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 OT ADL-Oral Care Comments Oral Care Comments Discussed with S.T. who will get suction toothbrush for pt use to improve oral care around orthodontia. OT ADL-Dressing General Eval Lower Body Dressing Ability Moderate Assistance Areas Needing Assistance Retrieving/Set-up of Clothing Underpants/Brief Socks Assistive Devices Dressing Assistive Devices Appeals Specialist Comments OT Dressing Comments Pt total assist to don socks in shower area due to fatigue. Pt SBA to doff socks with sales engineer. Min assist to don brief with sales engineer. Mod verbal cues for unfamiliar techniques. OT ADL-Bathing Bathing Type Bathing Type Shower General Evaluation Bathing Ability Minimal Assistance Areas Needing Assistance Retrieving/Setting Up Items Wash/Dry Lower Extremities Devices Bathing Equipment Hand Held Shower Sprayer Shower Chair without Arms Grab Bars Comments OT Bathing Comments Pt needs min cues for thoroughness and sequencing. M5 OT- IP IADL's Start: 04/07/18 15:30 Freq: Status: Active Protocol: Document 04/07/18 15:26 PJM (Rec: 04/07/18 15:50 PJ [id number]) OT-Instrumental Activities of Daily Living Deficits IADL Deficits Identified Deficits Home Safety Awareness Awareness of Need for Assistance at Home Decreased Awareness Meal Preparation Meal Preparation Comments total assist on modified diet at present, DMA w/nectar thicks Supervisor Customer Complaint Service Supervisor Customer Complaint Service Comments Total assist Driving Driving Comments pt unable to drive at present M6 OT- IP Functional Cognition Start: 04/07/18 15:30 Freq: Status: Active Protocol: Document 04/07/18 15:26 PJM (Rec: 04/07/18 15:50 PJ [email or web address]) Cognitive Factors Limiting Selfcare Function Cognitive Ability Level of Alertness Alert Patient Orientation Name Month Date Year Place Situation Attention Span Ability Capable of Focused Attention Ability to Follow Commands Able to Follow One Step Commands Safety Awareness Underestimates Need for Assistance Cognitive Comments Cognitive Assessment Comments flat affect, some decreased insight into current care needs OT- Vision and Hearing OT- Hearing Assessment OT- Hearing Assessment WFL OT- Vision Assessment Visual Acuity WFL Contact Lenses Visual Attentiveness WFL Vision Assessment Comments Pt able to put in/remove soft contacts independently. He denies any new vision deficits . M7 OT- IP Mobility and Balance Start: 04/07/18 15:30 Freq: Status: Active Protocol: Document 04/08/18 16:55 PJM (Rec: 04/08/18 17:11 PJM [email or web address]) OT- Bed Mobility Assessment Rolling Type of Rolling Roll to Right Level of Assistance Standby Assistance Head of Bed Elevated Bedrails Supine to Sit Supine to Sit Assist Standby Assistance Head of Bed Elevated Bedrails OT-Transfer Assessment Sit to and From Stand Sit to and from Stand Contact Guard Assistance Transfers Transfer Ability Contact Guard Assistance Technique Transfer Destination Chair Shower Stall Transfer Technique Stand Step Pivot Devices Transfer Assistive Devices Front Wheeled Walker Comments Mobility Comments Pt using grab bars in shower stall to step over 1 threshold. OT- Gait Assessment Gait Gait Assistance Required: Contact Guard Assist Distance (Feet) (feet) 25 Assistive Devices Assistive Device Gait Belt Front Wheeled Walker Comments Gait Ability Comments Needs min cues to avoid hitting objects with FWW. OT- Balance Assessment Sitting Balance and Reactions Static Sitting Balance Ability Good Dynamic Sitting Balance Ability Fair Standing Balance and Reactions Static Standing Balance Ability Fair Dynamic Standing Balance Ability Fair M8 OT- IP Objective Assessments Start: 04/07/18 15:30 Freq: Status: Active Protocol: Document 04/09/18 17:27 PJM (Rec: 04/09/18 17:38 PJ [id number]) OT Strength Comments Strength Comments Pt seen for education re: light blue theraband ex for 5 reps unilateral shldr flex, 5 reps bilateral horiz abduction , 5 reps biceps curls. Pt also educated re; red theraputty for 10 reps mass finger flex and 5 reps finger ext. M9 OT- IP Assessment and Plan Start: 04/07/18 15:30 Freq: Status: Active Protocol: Document 04/09/18 17:27 PJM (Rec: 04/09/18 17:38 PJ [id number]) OT Summary Assessment and Plan Potential Rehabilitation Potential Good Summary OT Impairments Strength Progress Towards Goals Progressing Toward Goals Assessment Summary Pt began light resistive BUE ex program today. He completed 5-10 reps of BUE/hand strengthening exercises with theraband and theraputty with rest breaks q 5 reps while seated EOB. Pt needs mod cues for exercise technique. Asked pt to have family bring in some of his own clothes for dressing. Per CM notes, d/c plan is now [employer] operator care facility. Pt will benefit from ongoing rehab services to increase endurance, independence and safety in basic self care and functional mobility. Goals Self-Feeding Goal Independent Grooming Goal Standby Assistance Dressing Goal Standby Assistance Toileting Goal Standby Assistance Bathing Goal Standby Assistance Toilet Transfer Goal Standby Assistance Shower Transfer Goal Standby Assistance Patient/Caregiver Education Goal Demonstrate Post-Op Precautions Demonstrate Energy Conservation and Pacing Caregiver Independent Assisting Patient OT-Other Goals Pt to be indep with BUE/hand strengthening program with good technique. Frequency of Treatment Frequency Of Treatment Once a Day Treatment Plan OT Treatment Plan ADL Training Functional Mobility Therapeutic Exercises Other Treatment Recommendations and Next see separate note Treatment Focus Discharge Recommendations OT Discharge Recommendations LTAC Other Discharge Recommendations Per CM notes, d/c plan now LTAC. Home Equipment Needs to be determined pending progress
[2018-04-09] MEDS: OXYCODONE IR 5 MG TABLET PO (18:29)
--- NOTE | 2018-04-09 19:55 | RT ---
BREATH SOUNDS ARE DECREASED IN LLL, OTHERWISE CLEAR. PT ACHIEVING 750 CC'S ON IS. O2 SAT ON RA NOTED AT 97%. RR = 20. BRONCHODILATOR NOT NEEDED AT THIS TIME.
[2018-04-10] VITALS: BP 123/75; PULSE 104; RESP 16; TEMP 37.4; O2SAT 92
--- NOTE | 2018-04-10 00:49 | PC.NURSE ---
PT DENIES ANY SUICIDAL THOUGHTS OR PLANS. PT VERBALIZED TO BE SAFE DURING HOSPITALIZATION
[2018-04-10 03:40] VITALS: BP 117/69; PULSE 99; RESP 16; TEMP 37.1; O2SAT 96
[2018-04-10 05:46] LABS: Prothrombin Time 21.8 SECONDS (10.1-12.7)
[2018-04-10] MEDS: PANTOPRAZOLE 40 MG TABLET PO (06:08)
[2018-04-10 08:15] VITALS: BP 115/78; PULSE 97; RESP 16; TEMP 36.2; O2SAT 97
[2018-04-10] MEDS: ENOXAPARIN 60 MG/0.6 ML SYRINGE 50 MG SUBCUT ×2 (10:43→20:46)
[2018-04-10] MEDS: ASPIRIN EC 325 MG TABLET PO (10:44)
[2018-04-10] MEDS: SERTRALINE 50 MG TABLET PO (10:44)
[2018-04-10] MEDS: ARIPiprazole 10 MG TABLET 5 MG PO (10:45)
[2018-04-10] MEDS: MULTIVIT,CALC,MINS/IRON/FOLIC 1 TABLET 1 TAB PO (10:45)
[2018-04-10] MEDS: DRONABINOL 2.5 MG CAPSULE PO ×3 (10:47→20:46)
--- NOTE | 2018-04-10 11:03 | PT.IPTN ---
Current Diagnoses Sepsis, unspecified organism (03/22/18) Hypocalcemia (03/22/18) Hypokalemia (03/22/18) Other pulmonary embolism without acute cor pulmonale (03/22/18) Chronic pulmonary edema (03/22/18) Acute postprocedural respiratory failure (03/22/18) Ulcerative colitis, unspecified, without complications (03/22/18) Perforation of intestine (nontraumatic) (03/22/18) Shortness of breath (03/22/18) Severe sepsis with septic shock (03/22/18) Physical Therapy Treatment Note M2 PT-IP Current Condition Start: 03/28/18 17:17 Freq: NEEDED Status: Active Protocol: Document 04/01/18 15:10 RCC (Rec: 04/01/18 16:30 RCC [email or web address]) Physical Therapy Current Condition Current Condition Evaluation Date 03/28/18 Treatment Diagnosis post-op colectomy for perforated bowel Onset Date 03/22/18 Post Operative Precautions Abdominal Surgery Precautions Log Roll Lifting Restrictions Gait Belt above Incisional Area Other Precautions contact precautions: 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 M4 PT-IP Mobility and Gait Start: 03/28/18 17:17 Freq: NEEDED Status: Active Protocol: Document 04/09/18 11:52 GGD (Rec: 04/09/18 11:56 GGD [email or web address]) PT-Bed Mobility Assessment Rolling Type of Rolling Log Rolling Level of Assist Standby Assistance Supine to Sit Supine to Sit Standby Assistance Sit to Supine Sit to Supine Standby Assistance Scooting Scooting to Edge of Bed Standby Assistance Scooting Up and Down in Bed Standby Assistance PT-Transfer Assessment Sit to and From Stand Sit to and from Stand Standby Assistance Equipment Transfer Assistive Device Gait Belt 4 Wheeled Walker Transfers Transfer Destination Chair Transfer Technique walk Transfer Ability Level of Assist Standby Assistance Comments Mobility Comments Pt SBA for all mobility. Gait Assessment Gait Gait Assistance Required: Contact Guard Assist Distance (Feet) (feet) 250 Assistive Devices Assistive Device Gait Belt 4 Wheeled Walker Factors Limiting Gait Function Factors Limiting Gait Function Decreased Activity Tolerance Decreased Strength M5 PT-IP Objective Assessments Start: 03/28/18 17:17 Freq: NEEDED Status: Active Protocol: Document 03/28/18 17:17 AB (Rec: 03/28/18 17:27 AB [id number]) Orientation Orientation/Cognition Level of Alertness Alert Orientation Name Situation Strength Lower Extremity Strength Assessment Bilaterally Impaired Hip 3+/5 Knee 3/5 Ankle 3+/5 M6 PT-IP Treatment Start: 03/28/18 17:17 Freq: NEEDED Status: Active Protocol: Document 04/10/18 10:45 GGD (Rec: 04/10/18 11:03 GGD [email or web address]) Physical Therapy Treatment Exercises Exercises Ankle Pumps Gluteal Sets Quad Sets Heel Slides Straight Leg Raises Short Arc Quads Other Treatments Other Treatment Performed Sit to stand x 2 M7 PT-IP Assessment and Plan Start: 03/28/18 17:17 Freq: NEEDED Status: Active Protocol: Document 04/10/18 10:45 GGD (Rec: 04/10/18 11:03 GGD [email or web address]) PT Summary Assessment and Plan Summary Assessment Summary Pt fatigue quickly. He had decrease tolerance to activity . He need CGA for SLR> Frequency of Treatment Frequency Of Treatment Once a Day Treatment Plan Other Recommendations and Next Treatment Standing exercise and balance, Focus short gait. Recommendations To Nursing Amount of Assist Needed 1 Person Assist Discharge Recommendations PT Discharge Recommendations Home with Assistance Home Health
--- NOTE | 2018-04-10 11:27 | CM.DPNOTE ---
Called [facility] [phone]: Auth is being worked on and is still pending. Plan remains [facility] pending auth.
--- NOTE | 2018-04-10 11:31 | PC.NURSE ---
pt up to chair x1hr. weak cough, congestion in oral pharnyx area; pt using yanker suction.
--- NOTE | 2018-04-10 11:44 | OT.IP.TRT ---
Current Diagnoses Sepsis, unspecified organism (03/22/18) Hypocalcemia (03/22/18) Hypokalemia (03/22/18) Other pulmonary embolism without acute cor pulmonale (03/22/18) Chronic pulmonary edema (03/22/18) Acute postprocedural respiratory failure (03/22/18) Ulcerative colitis, unspecified, without complications (03/22/18) Perforation of intestine (nontraumatic) (03/22/18) Shortness of breath (03/22/18) Severe sepsis with septic shock (03/22/18) Occupational Therapy Treatment Note M2 OT-IP Current Condition Start: 04/07/18 15:30 Freq: Status: Active Protocol: Document 04/07/18 15:26 PJM (Rec: 04/07/18 15:50 PJM [id number]) Occupational Therapy Current Condition Current Condition Evaluation Date 04/07/18 Treatment Diagnosis decreased BUE/hand strength, endurance and self care skills Diagnosis Onset Date 03/22/18 Post Operative Precautions Abdominal Surgery Precautions Log Roll Lifting Restrictions Gait Belt above Incisional Area Other Precautions open abdominal incision with wet to dry dressings and new ileostomy M3 OT- IP Subjective and Pain Start: 04/07/18 15:30 Freq: Status: Active Protocol: Document 04/10/18 09:55 [facility] (Rec: 04/10/18 10:34 [facility] [id number]) OT- Subjective Occupational Therapy Visit Type Type Treatment Note Visit Start Time 09:55 Visit Stop Time 10:25 Total Visit Minutes 30 Notes Pt agreeable to do therapy. Occupational Therapy Visit Comments Patient Comments I am really tired today. 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 M5 OT- IP IADL's Start: 04/07/18 15:30 Freq: Status: Active Protocol: Document 04/07/18 15:26 PJM (Rec: 04/07/18 15:50 PJM [email or web address]) OT-Instrumental Activities of Daily Living Deficits IADL Deficits Identified Deficits Home Safety Awareness Awareness of Need for Assistance at Home Decreased Awareness Meal Preparation Meal Preparation Comments total assist on modified diet at present, DMA w/nectar thicks Registered Nurse Ambulatory Registered Nurse Ambulatory Comments Total assist Driving Driving Comments pt unable to drive at present M6 OT- IP Functional Cognition Start: 04/07/18 15:30 Freq: Status: Active Protocol: Document 04/07/18 15:26 PJM (Rec: 04/07/18 15:50 PJM [email or web address]) Cognitive Factors Limiting Selfcare Function Cognitive Ability Level of Alertness Alert Patient Orientation Name Month Date Year Place Situation Attention Span Ability Capable of Focused Attention Ability to Follow Commands Able to Follow One Step Commands Safety Awareness Underestimates Need for Assistance Cognitive Comments Cognitive Assessment Comments flat affect, some decreased insight into current care needs OT- Vision and Hearing OT- Hearing Assessment OT- Hearing Assessment WFL OT- Vision Assessment Visual Acuity WFL Contact Lenses Visual Attentiveness WFL Vision Assessment Comments Pt able to put in/remove soft contacts independently. He denies any new vision deficits . M7 OT- IP Mobility and Balance Start: 04/07/18 15:30 Freq: Status: Active Protocol: Document 04/10/18 09:55 [facility] (Rec: 04/10/18 10:34 [facility] [id number]) OT- Bed Mobility Assessment Rolling Type of Rolling Roll to Right Level of Assistance Standby Assistance Head of Bed Elevated Bedrails Supine to Sit Supine to Sit Assist Standby Assistance Head of Bed Elevated Bedrails OT-Transfer Assessment Sit to and From Stand Sit to and from Stand Standby Assistance Contact Guard Assistance Transfers Transfer Ability Contact Guard Assistance Technique Transfer Destination Chair Transfer Technique Stand Step Pivot Devices Transfer Assistive Devices Front Wheeled Walker Comments Mobility Comments Attempted to do sit to stand SBA and had to rest 2 minutes before attempt of second sit to stand , unable to stand without use of arms. OT- Balance Assessment Sitting Balance and Reactions Static Sitting Balance Ability Good Dynamic Sitting Balance Ability Fair Standing Balance and Reactions Static Standing Balance Ability Fair M8 OT- IP Objective Assessments Start: 04/07/18 15:30 Freq: Status: Active Protocol: Document 04/09/18 17:27 PJM (Rec: 04/09/18 17:38 PJM [id number]) OT Strength Comments Strength Comments Pt seen for education re: light blue theraband ex for 5 reps unilateral shldr flex, 5 reps bilateral horiz abduction , 5 reps biceps curls. Pt also educated re; red theraputty for 10 reps mass finger flex and 5 reps finger ext. M9 OT- IP Assessment and Plan Start: 04/07/18 15:30 Freq: Status: Active Protocol: Document 04/10/18 09:55 [facility] (Rec: 04/10/18 10:34 [facility] [id number]) OT Summary Assessment and Plan Summary OT Impairments Strength Functional Mobility Grooming Dressing Toileting Bathing Toilet Transfers Shower Transfers Progress Towards Goals Progressing Toward Goals Assessment Summary Cont BUE stretching and strengthening as tolerated, theraputty, and encourage pt to partipicate. Goals Self-Feeding Goal Independent Grooming Goal Standby Assistance Dressing Goal Standby Assistance Toileting Goal Standby Assistance Bathing Goal Standby Assistance Toilet Transfer Goal Standby Assistance Shower Transfer Goal Standby Assistance Patient/Caregiver Education Goal Demonstrate Post-Op Precautions Demonstrate Energy Conservation and Pacing Caregiver Independent Assisting Patient OT-Other Goals Pt to be indep with BUE/hand strengthening program with good technique. Frequency of Treatment Frequency Of Treatment Once a Day Treatment Plan OT Treatment Plan ADL Training Functional Mobility Therapeutic Exercises Other Treatment Recommendations and Next Showering and follow check Treatment Focus follow through for BUE exercises. Discharge Recommendations OT Discharge Recommendations LTAC
--- NOTE | 2018-04-10 13:30 | ST.IPTN ---
BANANA CARRIER Dysphagia Treatment BANANA CARRIER Dysphagia Treatment Start: 04/06/18 13:05 Freq: Status: Active Protocol: Document 04/10/18 13:21 [facility] (Rec: 04/10/18 13:30 [facility] [id number]) Dysphagia Treatment Session Time Visit Start Time 12:15 Visit Stop Time 12:45 Total Visit Minutes 30 Setting Assessment Location Acute Care Visit Type Note Type Treatment Note Next Note Type Next Note Type Treatment Note Patient Information Identification Type Name Subjective Observations Patient resting in bed upon ST arrival. ST provided lunch tray and peanut butter and jelly sandwich. ST discussed the patient's increasing white count and asked patient if he would be open to participating in chest x-ray/ abdominal x-ray procedures in order to explore reasoning behind his increasing count. He stated that he was not opposed to trying anything, but that he felt that drinking the contrast in a CT exam was too much for him. He explained that the contrast had too much volume and that he did not have the strength to get it down. As a result, he requested to not do the CT study. He stated that his overall status was fair. At the end of the session, he did thank BANANA CARRIER for coming and stated that he would eventally get better. More positive outlook observed today. Treatment Liquids Trialed Thin Solids Trialed Dysphagia Mechanical Dysphagia Advanced Administration Type Cup Single Sip Self-Feeding Oral Strategies Upright at 90 degrees Double Swallow Alternate Liquids/Solids Pharyngeal Phase Strategies Sitting Upright (90 deg) Chin Tuck Double Swallow Effortful Swallow Mendelsonn Maneuver Small Bites and Sips Alternate Liquids/Solids Treatment Activities Patient trialed soup, nectar thick liquid and a soft sandwich this treatment session. Mild coughing observed initally, suspected due to presence of dry secretions in pharynx. Patient able to tolerate 5 sips of soup, 5 sips of nectar thick liquid nad 3 bites of sandwich before requesting to stop. Assessment Patient Response to Treatment Good Rehab Potential Good Assessment of Improvement Patient improving in oropharyngeal strength. This session, he was able to tolerate dysphagia advanced textures and nectar thick liquids without overt s/s of aspiration. He did attempt to drink nectar thick liquids via cup with ice chips. BANANA CARRIER provided education regarding the impact of ice and the dilution effect. The patient verbalized understanding. He agreed that IF he does use ice , he will immediately drink sitting upright with a chin tuck. If he has difficulty, he will stop. Due to his immediate cough response with aspiration, he has appropriate biofeedback for overt s/s of aspiration. He verablized understanding of this. Patient improving in overall oropharyngeal function. Recommend upgrade to dysphagia advanced textures, continue nectar thick liquids. Monitor lungs for status changes. Diet Recommendations Recommendations Upgrade Diet Order Liquids Order Napoleon Diet Order Dysphagia Advanced Medication Recommendations As Tolerated Additional Dietary Needs Encourage to Self-Feed Reminders to Use Strategies Aspiration Precautions Recommended Precautions Upright at 90 Degrees Small Bites/Sips Chin Tuck Double Swallow Additional Precautions Reminder to sit upright at 90 degrees for intake Treatment Plan Placement Recommendation after Discharge Section [facility] Facility Appropriate for Continued Therapy Yes Therapy Recommendations Strict oral hygiene Dysphagia strategies for laryngeal elevation and strength. Dysphagia Goals Pt will safely tolerate the least-restrictive diet without s/sx aspirations. Pt will improve swallow safety with implementations of safe swallow strategies Pt will implement effortful swallow and double swallow to improve pharyngeal clearance of all PO intake. Pt will participate in consistent oral hygiene to reduce risk of pneumonia from potential aspiration of saliva . Follow Up Plan Follow up daily
--- NOTE | 2018-04-10 13:45 | P.PN_ITS ---
Subjective Interval history: Patient has no new complaints. Not eating well. Says he wants real food like a piece of salmon. He says he ate a sandwich but I see a large amount remaining. He had some soup as well with lunch. Continues on TPN. No new pain. Exam Vital Signs (past 8 hours): Vital Signs - 8 hr 3 04/10/18 08:15 Temperature 97.2 F L Pulse Rate 97 H Respiratory Rate 16 Blood Pressure 115/78 Pulse Oximetry 97 Pulse Oximetry 97 Fraction of Inspired Oxygen 30 Oxygen Delivery Method Room Air Oxygen Flow Rate 0 Narrative Exam Narrative: Lungs are clear to auscultation with fairly good effort. Heart regular rate and rhythm and I do not appreciate a murmur or gallop. Abdomen is soft nontender. The wound actually looks pretty clean. There is granulation tissue beginning to form. No cellulitis. Buttock and perineum are unremarkable. There are no masses or tenderness or redness. Patient is alert and oriented. Objective Labs Result Diagrams: 04/09/18 05:14 04/09/18 05:14 Labs: Laboratory Results - last 24 hr 04/10/18 05:16 PT 21.8 H INR 2.0 H Assessment & Plan Post-op Postoperative (Subtotal )abdominal colectomy Postoperative plan: other (No obvious source of his elevated white count. Will continue to observe. May require hematology evaluation. Continue TPN and lipids thigh V. continue to encourage p.o. intake.) Time Spent With Patient less than 15 minutes Quality VTE Deep Vein Thrombosis/Pulmonary Embolism Present on Admission: Yes
--- NOTE | 2018-04-10 14:34 | PC.NURSE ---
drsg changed wet to dry to abd. wound base pink, granulation present. pt states no pain. voids per urinal. liquid bm in ileostomy bag. Ate few bites of sandwich for lunch then done. stoma beefy red
[2018-04-10 15:32] VITALS: PULSE 104; RESP 20; TEMP 37.1; O2SAT 99
--- NOTE | 2018-04-10 15:43 | P.PN_ITS ---
Subjective Interval history: The patient has no complaints. He was seen by Psychiatry today who recommend increasing sertraline to 100 mg daily. He admits to depression due to his situation but feels that generally he is doing fairly well. He is looking forward to going to the long-term acute care facility as planned. Exam Vital Signs (past 8 hours): Vital Signs - 8 hr 3 04/10/18 08:15 04/10/18 15:32 Temperature 97.2 F L 98.7 F Pulse Rate 97 H 104 H Respiratory Rate 16 20 Blood Pressure 115/78 Pulse Oximetry 97 99 Pulse Oximetry 99 Fraction of Inspired Oxygen 30 Oxygen Delivery Method Room Air Oxygen Flow Rate 0 Narrative Exam Narrative: General: Thin male, cachectic, appears comfortable HEENT: Mucous membranes pink and moist Neck: Supple Lungs: Clear to auscultation Cardiac: Regular rate and rhythm Abdomen: Soft, nontender, right lower quadrant colostomy bag with stool and gas present Extremities: Thin, without edema Dermatologic: No rash or skin lesions Objective Labs Result Diagrams: 04/09/18 05:14 04/09/18 05:14 Labs: Laboratory Results - last 24 hr 04/10/18 05:16 PT 21.8 H INR 2.0 H Assessment & Plan Plan: Plan: 1. Acute pulmonary embolism: Clinically stable. Full-dose Lovenox was initiated on the evening of 04/03/2018. Continue Lovenox 50 mg every 12 hr for 5-7 days and until INR is above 2.0 with 24 hr overlap, likely stopping Lovenox tomorrow. Started patient on warfarin 4 mg q.p.m. as of 04/04/2018. INR 1.6 on 04/07/2018. Patient can follow with Dr. Cedillo at [facility] for outpatient monitoring. He should complete 90 day duration of oral anticoagulant therapy. 2. Aspiration pneumonia with acute hypoxic respiratory failure: Clinically resolving. He is off of supplemental oxygen.. Continue Tygacil and metronidazole. 3. Depression: Continue Abilify 5 mg daily. He is also on sertraline 50 mg daily, which will be increased 100 mg daily 04/11/[address] Finney's psychiatric consultation. 4. 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 Taking food by mouth. Also on TPN. Managed by surgery. 5. Septic shock: Resolved. Antibiotics per surgery. Note elevated rising WBC and platelet counts unclear whether due to active infection or inflammation. PICC line being replaced on 04/10/2018 as possible source of infection. Recheck CBC tomorrow. 6. Severe protein calorie malnutrition secondary to acute on chronic illness: He is on TPN for nutritional support. Encourage oral intake. Continue monitor his nutritional status. 7. Dysphagia: Likely secondary to muscle weakness. Followed by speech pathology. He is currently on nectar thick liquid. 8. Disposition: Awaiting insurance approval for transfer to [place]. Patient would benefit from LTAC. Quality VTE Deep Vein Thrombosis/Pulmonary Embolism Present on Admission: Yes
[2018-04-10 16:05] VITALS: O2SAT 99
[2018-04-10] MEDS: WARFARIN 5 MG TABLET PO (17:09)
--- NOTE | 2018-04-10 17:41 | PM.CN ---
HPI Date Patient Seen: 04/10/18 Time Patient Seen: 13:30 Chief complaint: Acute Hyponatremia, Acute Anemia, Acute Hypocalcem Reason for consult: Depression management Requesting provider: Alka Martinez Narrative: This provider was contacted for consultation on depression in the context of prolonged hospital stay. Brief review of hospital course: Pt was initially admitted with weakness and diarrhea and history of ulcerative colitis. He was later found to have perforated bowel due to toxic megacolon and had emergent subtotal colectomy. Hospital course has also been complicated by septic shock, aspirate gin pneumonia with respiratory failure, acute PE, and severe malnutrition. His medical problems have been stabilizing, and he will likely be transferred to LTAC at [facility] in the near future when all approvals are complete. He was seen by social work on 03/22/2018 for mental health evaluation. At this time, it was reported that he had a recent divorce, 3 children still living in [place] with their mother. Thinking about ways to end his life in the past but no suicidal ideation at time of the evaluation. No known history of alcohol or drug abuse but occasional marijuana use. Resources for given for outpatient mental health follow-up upon discharge, however, this was prior to many of his medical complications. Interview: Patient reports doing okay currently. He reports going through bedtime previously, attributes some of this to medical illness, but feels he is over the hump. He rates his mood as a 4/10 on a scale where 10 is worst depression ever. He denies thoughts about being better off and denies plan or intent to end his life currently. He denies any history of suicide attempts, states that he considered plans in the past but no time recently. He was started on sertraline and Abilify while in the [facility], states this was 2 months ago, and was in the context of a medical stay. He reports having depression for most of his life, remembers feeling depressed as a child. He reports taking some other medications in the past, including Lexapro possibly 25 mg. He reports taking Vyvanse for ADHD which was diagnosed a few years ago and found this helpful to pay attention, took for about 1 year, but continuation was limited by cost. He denies periods in his life without need for sleep or having too much energy. He denies any other hospitalizations for depression or suicidality. He denies taking higher dose of sertraline in the past, and denies side effects that he has noticed with sertraline or Abilify. He reports some episodes of feeling disoriented in hospital, but states this has not happened for a while. He denies hallucinations recently or ever in his life, denies paranoia recently or ever in his life. He denies thoughts of harming other people. He reports feeling well taking care of here and is looking forward to stay at the long-term care facility, feels that this will be helpful for him to heal. We discussed that sertraline can be increased, and the higher doses are sometimes more hopeful for depression. He expresses agreement to try this. Past Psychiatric History: No inpatient admissions, denies suicide, past medication trials include Lexapro and Vyvanse, family history of depression but no bipolar disorder, schizophrenia, or suicide Social history: , 3 children living with mother in [place]; moved to the area 3 weeks ago, mother lives in [facility] Medical History ADHD (Acute) Depression (Acute) Ulcerative colitis (Acute) Surgical History Post-splenectomy (Acute) Social History household members: family Meds Home Medications Medication Instructions Recorded Confirmed Type adalimumab See Label Instructions .ROUTE 03/24/18 03/24/18 History .COMPLEX aripiprazole 5 mg PO DAILY 03/24/18 03/24/18 History ferrous sulfate 325 mg PO DAILY 03/24/18 03/24/18 History mercaptopurine 50 mg PO DAILY 03/24/18 03/24/18 History pantoprazole 40 mg PO DAILY 03/24/18 03/24/18 History sertraline 50 mg PO DAILY 03/24/18 03/24/18 History zolpidem 5 mg PO BEDTIME PRN 03/24/18 03/24/18 History Generic Name Dose Route Start Last Admin Trade Name Freq PRN Reason Stop Dose Admin Acetaminophen 650 mg 03/28/18 13:59 04/01/18 19:49 Tylenol Susp PO 650 mg Q6HR PRN Administration As Needed for Fever/Mild Pain Albuterol 2.5 mg 03/28/18 18:48 04/06/18 19:36 Ventolin INH 2.5 mg RTQ6HR PRN Administration Shortness Of Breath Or Wheezing Aripiprazole 5 mg 04/05/18 10:45 04/10/18 10:45 Abilify PO 5 mg DAILY DORENE Administration Artificial Tears 1 applic 03/24/18 12:32 03/24/18 13:12 Refresh Lacri-Lube Ointment EYE-BOTH 1 applic BID PRN Administration Dry Eye(s) Aspirin 325 mg 04/09/18 09:00 04/10/18 10:44 Aspirin Ec PO 325 mg DAILY DORENE Administration Dextrose 25 gm 03/24/18 00:01 03/25/18 17:50 D50w IV 12.5 gm PRN PRN Administration Hypoglycemia Dronabinol 2.5 mg 04/07/18 15:00 04/10/18 16:03 Marinol PO 2.5 mg TID DORENE Administration Enoxaparin Sodium 50 mg 04/04/18 10:00 04/10/18 10:43 Lovenox SUBCUT 50 mg BID DORENE Administration Heparin Sodium (Porcine) 50 unit 03/31/18 09:13 Heparin (Cl/Picc/Mid-Line) IV PRN PRN Flush Heparin Sodium (Porcine) 50 unit 03/31/18 21:00 04/10/18 10:45 Heparin (Cl/Picc/Mid-Line) IV 50 unit BID DORENE Administration Hydrocortisone 1 applic 03/28/18 14:01 03/29/18 20:39 Hydrocortisone 1% Cream TOP 1 applic TID PRN Administration Itching Sodium Chloride 500 mls @ 21 mls/hr 03/27/18 17:15 04/05/18 20:11 Normal Saline 0.9% IV 21 mls/hr CONT DORENE Administration Sodium Chloride 140 meq/ 1,615.6451 mls @ 67.319 mls/hr 04/10/18 18:00 04/10/18 17:46 Potassium Chloride 78 meq/ IV 04/11/18 17:59 67.319 mls/hr Calcium Gluconate 9.6 meq/ 1800 DORENE Administration Magnesium Sulfate 1 gm/ Multivitamins 10 ml/ Chromium/ Copper/Manganese/Seleni/Zn 1 ml/ Famotidine 30 mg/ Potassium Phosphate 15 mmol/ Dextrose/ Amino Acids Fat Emulsion Intravenous 50 gm in 250 mls @ 25 mls/hr 04/10/18 18:00 04/10/18 17:50 Intralipid IV 04/11/18 03:59 25 mls/hr 1800 DORENE Administration Insulin Aspart 0 unit 03/24/18 00:00 04/10/18 17:54 Novolog Flexpen SUBCUT Not Given Q6H [facility] Protocol Lorazepam 1 mg 03/25/18 17:58 04/05/18 01:02 Ativan IV 1 mg Q1HR PRN Administration Anxiety Multivitamins/Calcium 1 tab 04/04/18 09:00 04/10/18 10:45 Thera M Plus PO 1 tab DAILY DORENE Administration Naloxone HCl 0.2 mg 03/30/18 10:03 Narcan IV Q2MIN PRN Opiate Reversal Protocol Non-Formulary Medication 0 each 04/01/18 13:09 Patient's Own Medication PO PRN PRN . Ondansetron HCl 4 mg 03/24/18 00:01 04/06/18 16:23 Zofran IV 4 mg Q4HR PRN Administration Nausea And Vomiting Oxycodone HCl 5 mg 04/06/18 11:47 04/09/18 18:29 Percolone PO 5 mg Q3HR PRN Administration Moderate Pain Pantoprazole Sodium 40 mg 04/09/18 07:00 04/10/18 06:08 Protonix PO 40 mg 0700 [facility] Administration Sertraline HCl 100 mg 04/11/18 09:00 Zoloft PO DAILY [facility] Warfarin Sodium 5 mg 04/07/18 17:00 04/10/18 17:09 Coumadin PO 5 mg 1700 DORENE Administration Allergies Allergy/AdvReac Type Severity Reaction Status Date / Time Penicillins [PENICILLINS] Allergy Unknown Verified 03/24/18 16:04 Review of Systems Constitutional Constitutional: Reports malaise and Reports weight loss Neurologic Neurologic: Denies behavioral changes and Denies confusion Psychiatric Psychiatric: Reports as per HPI, Denies behavioral changes and Denies confusion Exam Vital Signs (past 8 hours): Vital Signs - 8 hr 04/10/18 15:32 04/10/18 16:05 Temperature 98.7 F Pulse Rate 104 H Respiratory Rate 20 Pulse Oximetry 99 99 Pulse Oximetry 99 Fraction of Inspired Oxygen 30 Oxygen Delivery Method Room Air Oxygen Flow Rate 0 Psych Appearance: other (Thin, wearing hospital garb) Mental Status: mental status grossly normal Speech and Movement: other (Lying in bed, no gait observed) Mood: congruent mood and dysthymic mood Affect: sad (With some reactivity) Attitude: cooperative Thought Process: normal Thought Content: normal, no hallucinations, no homicidality and suicidality Judgment: fair Other: Fair insight, attempted to interview, no deficits in memory noted, speech is soft but normal rate Objective Labs Result Diagrams: 04/09/18 05:14 04/09/18 05:14 Labs: Laboratory Results - last 24 hr 03/25/18 03/27/18 04/09/18 13:00 05:15 05:14 PT INR Sodium 132 L 130 L Potassium 3.7 4.3 Chloride 100.0 100.0 Carbon Dioxide 25.0 22.0 BUN 6.0 L 23.0 H Creatinine 0.30 L 0.40 L Estimated GFR > 60.0 > 60.0 BUN/Creatinine Ratio 20.0 57.5 H Glucose 122 H 104 H Calcium 6.6 L 6.9 L Phosphorus 4.5 4.2 Magnesium 1.8 Blood Type O Positive Antibody Screen Positive Antibody Identification Anti-K Crossmatch (AHG) See Detail 04/10/18 05:16 PT 21.8 H INR 2.0 H Sodium Potassium Chloride Carbon Dioxide BUN Creatinine Estimated GFR BUN/Creatinine Ratio Glucose Calcium Phosphorus Magnesium Blood Type Antibody Screen Antibody Identification Crossmatch (AHG) Assessment & Plan (1) Depression (emotion): Current visit: Yes Status: Acute Collin Morales is a 43-year-old male with history of ulcerative colitis and depression, initially admitted on 03/22/2018 for fatigue and diarrhea, and ultimately having multiple medical complications including perforated bowel resulting in subtotal colectomy, aspiration pneumonia, PE. Consultation was requested for depression management, with reported psychiatric hospitalization within the past few months for depression and suicidality. On presentation at time of consultation, he endorses some depressive symptoms, but also appears to be coping relatively well considering his circumstances. He has denied suicidal thoughts throughout admission, and there is no evidence of intent or plan to end his life currently. He was started on sertraline and Abilify, with no specific side effects reported. Sertraline is still at relatively low dose of 50 mg, and titration to higher dose may be more effective for depression symptoms. We discussed increased to 100 mg daily, and he expresses agreement with this plan. Abilify is used for augmentation, and 5 mg doses typically sufficient for antidepressant augmentation purposes. I feel that increase of sertraline rather than Abilify is more likely to impact his depression symptoms. Given his history of depression, recent medical illness, and it is life transition with move, he would benefit from some ongoing mental health treatment, particularly psychotherapy. I suspect that primary care physician can manage his medications, and could continue to titrate sertraline if needed to address depression symptoms. Upon discharge from LTAC, it may be helpful to connect him with psychotherapy resources. RECOMMENDATIONS: 1. Increase sertraline to 100 mg daily 2. Continue Abilify 5 mg daily 3. Consider psychotherapy as patient is willing, [facility] or [facility] are likely the best options based on patient's insurance Thank you for involving me in this patient's care. I will not plan to see patient in follow-up during his hospital stay, but please contact me with any additional questions or concerns (2) Acute pulmonary embolism: Current visit: Yes Status: Acute
[2018-04-10] MEDS: [UNRECOGNIZED DRUG - REMARK] 67.319 ML IV (17:46)
[2018-04-10] MEDS: FAT EMULSIONS 50 GM/250 ML EMULSION IV (17:50)
--- NOTE | 2018-04-10 18:08 | P.CONS_ITS ---
[facility] Date Patient Seen: 04/10/18 Time Patient Seen: 13:30 Chief complaint: Acute Hyponatremia, Acute Anemia, Acute Hypocalcem Reason for consult: Depression management Requesting provider: Alka Martinez Narrative: This provider was contacted for consultation on depression in the context of prolonged hospital stay. Brief review of hospital course: Pt was initially admitted with weakness and diarrhea and history of ulcerative colitis. He was later found to have perforated bowel due to toxic megacolon and had emergent subtotal colectomy. Hospital course has also been complicated by septic shock, aspirate gin pneumonia with respiratory failure, acute PE, and severe malnutrition. His medical problems have been stabilizing, and he will likely be transferred to LTAC at [place] in the near future when all approvals are complete. He was seen by social work on 03/22/2018 for mental health evaluation. At this time, it was reported that he had a recent divorce, 3 children still living in [place] with their mother. Thinking about ways to end his life in the past but no suicidal ideation at time of the evaluation. No known history of alcohol or drug abuse but occasional marijuana use. Resources for given for outpatient mental health follow-up upon discharge, however, this was prior to many of his medical complications. Interview: Patient reports doing okay currently. He reports going through bedtime previously, attributes some of this to medical illness, but feels he is over the hump. He rates his mood as a 4/10 on a scale where 10 is worst depression ever. He denies thoughts about being better off and denies plan or intent to end his life currently. He denies any history of suicide attempts, states that he considered plans in the past but no time recently. He was started on sertraline and Abilify while in the [facility], states this was 2 months ago, and was in the context of a medical stay. He reports having depression for most of his life, remembers feeling depressed as a child. He reports taking some other medications in the past, including Lexapro possibly 25 mg. He reports taking Vyvanse for ADHD which was diagnosed a few years ago and found this helpful to pay attention, took for about 1 year, but continuation was limited by cost. He denies periods in his life without need for sleep or having too much energy. He denies any other hospitalizations for depression or suicidality. He denies taking higher dose of sertraline in the past, and denies side effects that he has noticed with sertraline or Abilify. He reports some episodes of feeling disoriented in hospital, but states this has not happened for a while. He denies hallucinations recently or ever in his life, denies paranoia recently or ever in his life. He denies thoughts of harming other people. He reports feeling well taking care of here and is looking forward to stay at the long-term care facility, feels that this will be helpful for him to heal. We discussed that sertraline can be increased, and the higher doses are sometimes more hopeful for depression. He expresses agreement to try this. Past Psychiatric History: No inpatient admissions, denies suicide, past medication trials include Lexapro and Vyvanse, family history of depression but no bipolar disorder, schizophrenia , or suicide Social history: , 3 children living with mother in [place]; moved to the area 3 weeks ago , mother lives in [facility] Medical History ADHD (Acute) Depression (Acute) Ulcerative colitis (Acute) Surgical History Post-splenectomy (Acute) Social History household members: family Meds Home Medications Medication Instructions Recorded Confirmed Type adalimumab See Label Instructions .ROUTE 03/24/18 03/24/18 History .COMPLEX aripiprazole 5 mg PO DAILY 03/24/18 03/24/18 History ferrous sulfate 325 mg PO DAILY 03/24/18 03/24/18 History mercaptopurine 50 mg PO DAILY 03/24/18 03/24/18 History pantoprazole 40 mg PO DAILY 03/24/18 03/24/18 History sertraline 50 mg PO DAILY 03/24/18 03/24/18 History zolpidem 5 mg PO BEDTIME PRN 03/24/18 03/24/18 History Generic Name Dose Route Start Last Admin Trade Name Freq PRN Reason Stop Dose Admin Acetaminophen 650 mg 03/28/18 13:59 04/01/18 19:49 Tylenol Susp PO 650 mg Q6HR PRN Administration As Needed for Fever/Mild Pain Albuterol 2.5 mg 03/28/18 18:48 04/06/18 19:36 Ventolin INH 2.5 mg RTQ6HR PRN Administration Shortness Of Breath Or Wheezing Aripiprazole 5 mg 04/05/18 10:45 04/10/18 10:45 Abilify PO 5 mg DAILY DORENE Administration Artificial Tears 1 applic 03/24/18 12:32 03/24/18 13:12 Refresh Lacri-Lube Ointment EYE-BOTH 1 applic BID PRN Administration Dry Eye(s) Aspirin 325 mg 04/09/18 09:00 04/10/18 10:44 Aspirin Ec PO 325 mg DAILY DORENE Administration Dextrose 25 gm 03/24/18 00:01 03/25/18 17:50 D50w IV 12.5 gm PRN PRN Administration Hypoglycemia Dronabinol 2.5 mg 04/07/18 15:00 04/10/18 16:03 Marinol PO 2.5 mg TID DORENE Administration Enoxaparin Sodium 50 mg 04/04/18 10:00 04/10/18 10:43 Lovenox SUBCUT 50 mg BID DORENE Administration Heparin Sodium (Porcine) 50 unit 03/31/18 09:13 Heparin (Cl/Picc/Mid-Line) IV PRN PRN Flush Heparin Sodium (Porcine) 50 unit 03/31/18 21:00 04/10/18 10:45 Heparin (Cl/Picc/Mid-Line) IV 50 unit BID DORENE Administration Hydrocortisone 1 applic 03/28/18 14:01 03/29/18 20:39 Hydrocortisone 1% Cream TOP 1 applic TID PRN Administration Itching Sodium Chloride 500 mls @ 21 mls/hr 03/27/18 17:15 04/05/18 20:11 Normal Saline 0.9% IV 21 mls/hr CONT DORENE Administration Sodium Chloride 140 meq/ 1,615.6451 mls @ 67.319 mls/hr 04/10/18 18:00 17:46 Potassium Chloride 78 meq/ IV 04/11/18 17:59 67.319 mls/hr Calcium Gluconate 9.6 meq/ 1800 DORENE Administration Magnesium Sulfate 1 gm/ Multivitamins 10 ml/ Chromium/ Copper/Manganese/Seleni/Zn 1 ml/ Famotidine 30 mg/ Potassium Phosphate 15 mmol/ Dextrose/ Amino Acids Fat Emulsion Intravenous 50 gm in 250 mls @ 25 mls/hr 04/10/18 18:00 17:50 Intralipid IV 04/11/18 03:59 25 mls/hr 1800 DORENE Administration Insulin Aspart 0 unit 03/24/18 00:00 04/10/18 17:54 Novolog Flexpen SUBCUT Not Given Q6H [facility] Protocol Lorazepam 1 mg 03/25/18 17:58 04/05/18 01:02 Ativan IV 1 mg Q1HR PRN Administration Anxiety Multivitamins/Calcium 1 tab 04/04/18 09:00 04/10/18 10:45 Thera M Plus PO 1 tab DAILY DORENE Administration Naloxone HCl 0.2 mg 03/30/18 10:03 Narcan IV Q2MIN PRN Opiate Reversal Protocol Non-Formulary Medication 0 each 04/01/18 13:09 Patient's Own Medication PO PRN PRN . Ondansetron HCl 4 mg 03/24/18 00:01 04/06/18 16:23 Zofran IV 4 mg Q4HR PRN Administration Nausea And Vomiting Oxycodone HCl 5 mg 04/06/18 11:47 04/09/18 18:29 Percolone PO 5 mg Q3HR PRN Administration Moderate Pain Pantoprazole Sodium 40 mg 04/09/18 07:00 04/10/18 06:08 Protonix PO 40 mg 0700 [facility] Administration Sertraline HCl 100 mg 04/11/18 09:00 Zoloft PO DAILY [facility] Warfarin Sodium 5 mg 04/07/18 17:00 04/10/18 17:09 Coumadin PO 5 mg 1700 DORENE Administration Allergies Allergy/AdvReac Type Severity Reaction Status Date / Time Penicillins [PENICILLINS] Allergy Unknown Verified 03/24/18 16:04 Review of Systems Constitutional Constitutional: Reports malaise and Reports weight loss Neurologic Neurologic: Denies behavioral changes and Denies confusion Psychiatric Psychiatric: Reports as per HPI, Denies behavioral changes and Denies confusion Exam Vital Signs (past 8 hours): Vital Signs - 8 hr 3 04/10/18 15:32 04/10/18 16:05 Temperature 98.7 F Pulse Rate 104 H Respiratory Rate 20 Pulse Oximetry 99 99 Pulse Oximetry 99 Fraction of Inspired Oxygen 30 Oxygen Delivery Method Room Air Oxygen Flow Rate 0 Psych Appearance: other (Thin, wearing hospital garb) Mental Status: mental status grossly normal Speech and Movement: other (Lying in bed, no gait observed) Mood: congruent mood and dysthymic mood Affect: sad (With some reactivity) Attitude: cooperative Thought Process: normal Thought Content: normal, no hallucinations, no homicidality and suicidality Judgment: fair Other: Fair insight, attempted to interview, no deficits in memory noted, speech is soft but normal rate Objective Labs Result Diagrams: 04/09/18 05:14 04/09/18 05:14 Labs: Laboratory Results - last 24 hr 03/25/18 03/27/18 04/09/18 13:00 05:15 05:14 PT INR Sodium 132 L 130 L Potassium 3.7 4.3 Chloride 100.0 100.0 Carbon Dioxide 25.0 22.0 BUN 6.0 L 23.0 H Creatinine 0.30 L 0.40 L Estimated GFR > 60.0 > 60.0 BUN/Creatinine Ratio 20.0 57.5 H Glucose 122 H 104 H Calcium 6.6 L 6.9 L Phosphorus 4.5 4.2 Magnesium 1.8 Blood Type O Positive Antibody Screen Positive Antibody Identification Anti-K Crossmatch (AHG) See Detail 04/10/18 05:16 PT 21.8 H INR 2.0 H Sodium Potassium Chloride Carbon Dioxide BUN Creatinine Estimated GFR BUN/Creatinine Ratio Glucose Calcium Phosphorus Magnesium Blood Type Antibody Screen Antibody Identification Crossmatch (AHG) Assessment & Plan (1) Depression (emotion): Current visit: Yes Status: Acute Collin Morales is a 43-year-old male with history of ulcerative colitis and depression, initially admitted on 03/22/2018 for fatigue and diarrhea, and ultimately having multiple medical complications including perforated bowel resulting in subtotal colectomy, aspiration pneumonia, PE. Consultation was requested for depression management, with reported psychiatric hospitalization within the past few months for depression and suicidality. On presentation at time of consultation, he endorses some depressive symptoms, but also appears to be coping relatively well considering his circumstances. He has denied suicidal thoughts throughout admission, and there is no evidence of intent or plan to end his life currently. He was started on sertraline and Abilify, with no specific side effects reported. Sertraline is still at relatively low dose of 50 mg, and titration to higher dose may be more effective for depression symptoms. We discussed increased to 100 mg daily, and he expresses agreement with this plan. Abilify is used for augmentation, and 5 mg doses typically sufficient for antidepressant augmentation purposes. I feel that increase of sertraline rather than Abilify is more likely to impact his depression symptoms. Given his history of depression, recent medical illness, and it is life transition with move, he would benefit from some ongoing mental health treatment , particularly psychotherapy. I suspect that primary care physician can manage his medications, and could continue to titrate sertraline if needed to address depression symptoms. Upon discharge from LTAC, it may be helpful to connect him with psychotherapy resources. RECOMMENDATIONS: 1. Increase sertraline to 100 mg daily 2. Continue Abilify 5 mg daily 3. Consider psychotherapy as patient is willing, [facility] or [facility] are likely the best options based on patient's insurance Thank you for involving me in this patient's care. I will not plan to see patient in follow-up during his hospital stay, but please contact me with any additional questions or concerns (2) Acute pulmonary embolism: Current visit: Yes Status: Acute
[2018-04-11] MEDS: OXYCODONE IR 5 MG TABLET PO ×2 (00:37→17:11)
[2018-04-11 00:38] VITALS: BP 111/68; PULSE 102; RESP 17; TEMP 36.8; O2SAT 98
--- NOTE | 2018-04-11 03:19 | PC.NURSE ---
Assumed care of pt from outgoing shift at 2300 5-18. Pt awake, complains of pain. medicated per eMAR. Pt uses call light. uses urinal. Pt expresses needs, has flat affect. PT bed in lowest, locked position, belongings and call light within reach. Pt needs met, discussed plan of care far night. will continue to monitor pt for safety. bed alarm on, side rails up x3.
[2018-04-11] MEDS: PANTOPRAZOLE 40 MG TABLET PO (06:05)
[2018-04-11 06:17] LABS: INR 2.3 (0.9-1.3); Prothrombin Time 24.8 SECONDS (10.1-12.7)
[2018-04-11 06:21] LABS: Alanine Aminotransferase 28 IU/L (21-72); Albumin 2.5 g/dL (3.5-5.0); Albumin Globulin Ratio 0.6 (1.0-2.8); Alkaline Phosphatase 229 U/L (38-126); Aspartate Aminotransferase 35 IU/L (17-59); BUN Creatinine Ratio 32.5 (6-22); Bilirubin Total 0.2 mg/dL (0.2-1.3); Calcium 7.4 mg/dL (8.4-10.2); Estimated Glomerular Filt Rate > 60.0 mL/min (>60); Globulin 4.5 g/dL (1.7-4.1); Glucose 75 mg/dL (70-100); HEMOLYSIS < 15 (0-50); Hematocrit 29.7 % (41-53); Hemoglobin 9.8 g/dL (13.5-17.5); Mean Corpuscular Hemoglobin 28.6 PG (26-34); Mean Corpuscular Volume 86.7 fL (80-100); Potassium 4.5 mmol/L (3.4-5.1); Red Blood Cell Count 3.42 X10^6/uL (4.5-5.9); Red Cell Distribution Width 16.9 % (11.6-14.8); Sodium 130 mmol/L (137-145)
[2018-04-11 06:22] LABS: Add Manual Diff / Slide Review YES
[2018-04-11 06:25] LABS: Platelet Count 1324 X10^3/uL (150-400); White Blood Cell Count 37.6 X10^3/uL (4.5-11.0)
[2018-04-11 06:35] LABS: Neutrophils Absolute Manual 27072 /uL (3000-5900); Total Cells Counted 100
[2018-04-11 06:36] LABS: Anisocytosis 1+; Target Cells 1+
[2018-04-11 06:37] LABS: Morphology Comment 1+GIANT PLATELETS
[2018-04-11 07:55] VITALS: BP 118/75; PULSE 107; RESP 18; TEMP 36.6; O2SAT 95
[2018-04-11] MEDS: ASPIRIN EC 325 MG TABLET PO ×2 (08:42→12:07)
[2018-04-11] MEDS: MULTIVIT,CALC,MINS/IRON/FOLIC 1 TABLET 1 TAB PO (08:43)
[2018-04-11] MEDS: SERTRALINE 50 MG TABLET 100 MG PO (08:43)
[2018-04-11] MEDS: DRONABINOL 2.5 MG CAPSULE PO ×3 (08:44→20:36)
[2018-04-11] MEDS: ENOXAPARIN 60 MG/0.6 ML SYRINGE 50 MG SUBCUT (08:44)
[2018-04-11] MEDS: ARIPiprazole 10 MG TABLET 5 MG PO (08:44)
--- NOTE | 2018-04-11 11:21 | P.PN_ITS ---
Subjective Interval history: The patient has no complaints. He denies abdominal pain. He states he is hoping to go home. Exam Vital Signs (past 8 hours): Vital Signs - 8 hr 3 04/11/18 07:55 Temperature 97.9 F Pulse Rate 107 H Respiratory Rate 18 Blood Pressure 118/75 Pulse Oximetry 95 Pulse Oximetry 95 Fraction of Inspired Oxygen 30 Oxygen Delivery Method Room Air Oxygen Flow Rate 0 Narrative Exam Narrative: General: Thin male, cachectic, appears comfortable HEENT: Mucous membranes pink and moist Neck: Supple Lungs: Clear to auscultation Cardiac: Regular rate and rhythm Abdomen: Soft, nontender, right lower quadrant colostomy bag with stool and gas present Extremities: Thin, without edema Dermatologic: No rash or skin lesions Objective Labs Result Diagrams: 04/11/18 06:00 04/11/18 06:00 Labs: Laboratory Results - last 24 hr 03/25/18 03/27/18 04/09/18 13:00 05:15 05:14 WBC RBC Hgb Hct MCV MCH MCHC RDW Plt Count Neut % (Auto) Lymph % (Auto) [place] % (Auto) Eos % (Auto) Baso % (Auto) Total Counted Seg Neutrophils % Band Neutrophils % Lymphocytes % (Manual) Monocytes % (Manual) Eosinophils % (Manual) Metamyelocytes % Myelocytes % Neutrophils # (Manual) Differential Comment RBC Morphology Anisocytosis Target Cells PT INR Sodium 132 L 130 L Potassium 3.7 4.3 Chloride 100.0 100.0 Carbon Dioxide 25.0 22.0 BUN 6.0 L 23.0 H Creatinine 0.30 L 0.40 L Estimated GFR > 60.0 > 60.0 BUN/Creatinine Ratio 20.0 57.5 H Glucose 122 H 104 H Calcium 6.6 L 6.9 L Phosphorus 4.5 4.2 Magnesium 1.8 Total Bilirubin AST ALT Alkaline Phosphatase Total Protein Albumin Globulin Albumin/Globulin Ratio Blood Type O Positive Antibody Screen Positive Antibody Identification Anti-K Crossmatch (AHG) See Detail 04/11/18 04/11/18 04/11/18 06:00 06:00 06:00 WBC 37.6 H* RBC 3.42 L Hgb 9.8 L Hct 29.7 L MCV 86.7 MCH 28.6 MCHC 33.0 RDW 16.9 H Plt Count 1324 H* Neut % (Auto) Not Reportable Lymph % (Auto) Not Reportable [place] % (Auto) Not Reportable Eos % (Auto) Not Reportable Baso % (Auto) Not Reportable Total Counted 100 Seg Neutrophils % 66.0 Band Neutrophils % 6.0 Lymphocytes % (Manual) 15.0 L Monocytes % (Manual) 5.0 Eosinophils % (Manual) 2.0 Metamyelocytes % 4.0 H Myelocytes % 2.0 H Neutrophils # (Manual) 87010 H Differential Comment 1+giant platelets RBC Morphology Not Reportable Anisocytosis 1+ H Target Cells 1+ H PT 24.8 H INR 2.3 H Sodium 130 L Potassium 4.5 Chloride 99.0 Carbon Dioxide 22.0 BUN 13.0 Creatinine 0.40 L Estimated GFR > 60.0 BUN/Creatinine Ratio 32.5 H Glucose 75 Calcium 7.4 L Phosphorus Magnesium Total Bilirubin 0.2 AST 35 ALT 28 Alkaline Phosphatase 229 H Total Protein 7.0 Albumin 2.5 L Globulin 4.5 H Albumin/Globulin Ratio 0.6 L Blood Type Antibody Screen Antibody Identification Crossmatch (AHG) Assessment & Plan Plan: Plan: 1. Acute pulmonary embolism: Clinically stable. Full-dose Lovenox was initiated on the evening of 04/03/2018, stopped 04/11/2018 after 48 hr of therapeutic INR overlap on warfarin. Patient can follow with Dr. Cedillo at [facility] for outpatient monitoring. He should complete 90 day duration of oral anticoagulant therapy. Add aspirin 325 mg daily 04/11/2018 given significant thrombocytosis. Continue PPI for gastric protection. 2. Aspiration pneumonia with acute hypoxic respiratory failure: Clinically resolving. He is off of supplemental oxygen. Continue Tygacil and metronidazole. 3. Depression: Adequate control. Significant situational component. Continue Abilify 5 mg daily. He is also on sertraline 50 mg daily, increased 100 mg daily 04/11/[address] Finney's psychiatric consultation. 4. 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 Taking food by mouth and on TPN. Managed by surgery. 5. Septic shock: Resolved. Antibiotics per surgery. Note elevated rising WBC and platelet counts unclear whether due to active infection or inflammation. However he is afebrile with a benign abdominal exam. Case reviewed with surgery. Continue observation. PICC line replaced on 04/10/2018 as possible source of infection. Follow clinically. 6. Severe protein calorie malnutrition secondary to acute on chronic illness: He is on TPN for nutritional support. Encourage oral intake. Continue monitor his nutritional status. 7. Dysphagia: Likely secondary to muscle weakness. Followed by speech pathology. He is currently on nectar thick liquid. 8. Disposition: Awaiting insurance approval for transfer to [place]. Patient would benefit from LTAC due to profound weakness, compromise and need for ongoing therapy, TPN and IV antibiotics. Quality VTE Deep Vein Thrombosis/Pulmonary Embolism Present on Admission: Yes
--- NOTE | 2018-04-11 12:43 | OT.IP.TRT ---
Current Diagnoses Sepsis, unspecified organism (03/22/18) Hypocalcemia (03/22/18) Hypokalemia (03/22/18) Major depressive disorder, single episode, unspecified (03/22/18) Other pulmonary embolism without acute cor pulmonale (03/22/18) Chronic pulmonary edema (03/22/18) Acute postprocedural respiratory failure (03/22/18) Ulcerative colitis, unspecified, without complications (03/22/18) Perforation of intestine (nontraumatic) (03/22/18) Shortness of breath (03/22/18) Severe sepsis with septic shock (03/22/18) Occupational Therapy Treatment Note M2 OT-IP Current Condition Start: 04/07/18 15:30 Freq: Status: Active Protocol: Document 04/11/18 12:29 ADH (Rec: 04/11/18 12:43 ADH [email or web address]) Occupational Therapy Current Condition Current Condition Evaluation Date 04/07/18 Treatment Diagnosis decreased BUE/hand strength, endurance and self care skills Diagnosis Onset Date 03/22/18 Post Operative Precautions Abdominal Surgery Precautions Log Roll Lifting Restrictions Gait Belt above Incisional Area Other Precautions open abdominal incision with wet to dry dressings and new ileostomy M3 OT- IP Subjective and Pain Start: 04/07/18 15:30 Freq: Status: Active Protocol: Document 04/11/18 12:29 ADH (Rec: 04/11/18 12:43 ADH [email or web address]) OT- Subjective Occupational Therapy Visit Type Type Treatment Note Visit Start Time 08:51 Visit Stop Time 09:10 Total Visit Minutes 19 Notes Pt agreeable to short OT session, premedicated. Pt agreeable to short walk, able to walk 160' with personal 4WW , brief pauses for rest breaks . Pt with poor activity tolerance, fatigued after walk and requested to return to bed. OT Pain Assessment Pain When Pain Assessed At Rest Pain Present Pain Present Denied Pain M4 OT- IP ADL's Start: 04/07/18 15:30 Freq: Status: Active Protocol: Document 04/11/18 12:29 ADH (Rec: 04/11/18 12:43 ADH [id number]) OT ADL-Grooming Comments OT Grooming Comments Pt declined offer of s/u for grooming and oral care--stated his mother was visiting later and would brush his teeth for him. Not receptive to positive encouragement to complete task independently and/or with this therapist. OT ADL-Dressing Comments OT Dressing Comments declined OT ADL-Toileting Comments OT Toileting Comments declined M5 OT- IP IADL's Start: 04/07/18 15:30 Freq: Status: Active Protocol: Document 04/07/18 15:26 PJM (Rec: 04/07/18 15:50 PJM [id number]) OT-Instrumental Activities of Daily Living Deficits IADL Deficits Identified Deficits Home Safety Awareness Awareness of Need for Assistance at Home Decreased Awareness Meal Preparation Meal Preparation Comments total assist on modified diet at present, DMA w/nectar thicks Script Girl Script Girl Comments Total assist Driving Driving Comments pt unable to drive at present M6 OT- IP Functional Cognition Start: 04/07/18 15:30 Freq: Status: Active Protocol: Document 04/07/18 15:26 PJM (Rec: 04/07/18 15:50 PJM [id number]) Cognitive Factors Limiting Selfcare Function Cognitive Ability Level of Alertness Alert Patient Orientation Name Month Date Year Place Situation Attention Span Ability Capable of Focused Attention Ability to Follow Commands Able to Follow One Step Commands Safety Awareness Underestimates Need for Assistance Cognitive Comments Cognitive Assessment Comments flat affect, some decreased insight into current care needs OT- Vision and Hearing OT- Hearing Assessment OT- Hearing Assessment WFL OT- Vision Assessment Visual Acuity WFL Contact Lenses Visual Attentiveness WFL Vision Assessment Comments Pt able to put in/remove soft contacts independently. He denies any new vision deficits . M7 OT- IP Mobility and Balance Start: 04/07/18 15:30 Freq: Status: Active Protocol: Document 04/10/18 09:55 [facility] (Rec: 04/10/18 10:34 [facility] [id number]) OT- Bed Mobility Assessment Rolling Type of Rolling Roll to Right Level of Assistance Standby Assistance Head of Bed Elevated Bedrails Supine to Sit Supine to Sit Assist Standby Assistance Head of Bed Elevated Bedrails OT-Transfer Assessment Sit to and From Stand Sit to and from Stand Standby Assistance Contact Guard Assistance Transfers Transfer Ability Contact Guard Assistance Technique Transfer Destination Chair Transfer Technique Stand Step Pivot Devices Transfer Assistive Devices Front Wheeled Walker Comments Mobility Comments Attempted to do sit to stand SBA and had to rest 2 minutes before attempt of second sit to stand , unable to stand without use of arms. OT- Balance Assessment Sitting Balance and Reactions Static Sitting Balance Ability Good Dynamic Sitting Balance Ability Fair Standing Balance and Reactions Static Standing Balance Ability Fair M8 OT- IP Objective Assessments Start: 04/07/18 15:30 Freq: Status: Active Protocol: Document 04/09/18 17:27 PJM (Rec: 04/09/18 17:38 PJM [id number]) OT Strength Comments Strength Comments Pt seen for education re: light blue theraband ex for 5 reps unilateral shldr flex, 5 reps bilateral horiz abduction , 5 reps biceps curls. Pt also educated re; red theraputty for 10 reps mass finger flex and 5 reps finger ext. M9 OT- IP Assessment and Plan Start: 04/07/18 15:30 Freq: Status: Active Protocol: Document 04/11/18 12:29 ADH (Rec: 04/11/18 12:43 ADH [email or web address]) OT Summary Assessment and Plan Summary OT Impairments Functional Cognition Progress Towards Goals Slow Progress due to Medical Issues Assessment Summary Pt appears to have limited initiation to complete self- care tasks. Pt appears to benefit from firm support to complete tasks within his ability. Pt with improved mobility. Goals Self-Feeding Goal Standby Assistance Grooming Goal Standby Assistance Dressing Goal Standby Assistance Toileting Goal Standby Assistance Bathing Goal Standby Assistance Toilet Transfer Goal Standby Assistance Shower Transfer Goal Standby Assistance Patient/Caregiver Education Goal Demonstrate Post-Op Precautions Demonstrate Energy Conservation and Pacing Caregiver Independent Assisting Patient OT-Other Goals Pt to be indep with BUE/hand strengthening program with good technique. Frequency of Treatment Frequency Of Treatment Once a Day Treatment Plan OT Treatment Plan ADL Training Functional Mobility Therapeutic Exercises Patient/Family Education Discharge Planning Discharge Recommendations OT Discharge Recommendations LTAC Home Equipment Needs defer to facility
--- NOTE | 2018-04-11 13:07 | P.PN_ITS ---
Subjective Interval history: The patient has no complaints. He denies abdominal pain. He states he is hoping to go home. He does admit today that he has only eaten very little. So far today he has had about 1/4 of a baked potato. He says he has been walking in the halls as much as he can tolerate. He does not feel hungry at all. He says his pain is pretty well controlled. He understands that he may need to go to [place] but he does not want to. Exam Vital Signs (past 8 hours): Vital Signs - 8 hr 3 04/11/18 07:55 Temperature 97.9 F Pulse Rate 107 H Respiratory Rate 18 Blood Pressure 118/75 Pulse Oximetry 95 Pulse Oximetry 95 Fraction of Inspired Oxygen 30 Oxygen Delivery Method Room Air Oxygen Flow Rate 0 Narrative Exam Narrative: Remarkably thin but pleasant man in no distress Lungs are clear bilaterally Abd: soft, flat, ostomy is viable and working with air and stool in the bag. Mindline incision is granulating. No purulent drainage or foul odor. Objective Labs Result Diagrams: 04/11/18 06:00 04/11/18 06:00 Labs: Laboratory Results - last 24 hr 03/25/18 03/27/18 04/09/18 13:00 05:15 05:14 WBC RBC Hgb Hct MCV MCH MCHC RDW Plt Count Neut % (Auto) Lymph % (Auto) [place] % (Auto) Eos % (Auto) Baso % (Auto) Total Counted Seg Neutrophils % Band Neutrophils % Lymphocytes % (Manual) Monocytes % (Manual) Eosinophils % (Manual) Metamyelocytes % Myelocytes % Neutrophils # (Manual) Differential Comment RBC Morphology Anisocytosis Target Cells PT INR Sodium 132 L 130 L Potassium 3.7 4.3 Chloride 100.0 100.0 Carbon Dioxide 25.0 22.0 BUN 6.0 L 23.0 H Creatinine 0.30 L 0.40 L Estimated GFR > 60.0 > 60.0 BUN/Creatinine Ratio 20.0 57.5 H Glucose 122 H 104 H Calcium 6.6 L 6.9 L Phosphorus 4.5 4.2 Magnesium 1.8 Total Bilirubin AST ALT Alkaline Phosphatase Total Protein Albumin Globulin Albumin/Globulin Ratio Blood Type O Positive Antibody Screen Positive Antibody Identification Anti-K Crossmatch (AHG) See Detail 04/11/18 04/11/18 04/11/18 06:00 06:00 06:00 WBC 37.6 H* RBC 3.42 L Hgb 9.8 L Hct 29.7 L MCV 86.7 MCH 28.6 MCHC 33.0 RDW 16.9 H Plt Count 1324 H* Neut % (Auto) Not Reportable Lymph % (Auto) Not Reportable [place] % (Auto) Not Reportable Eos % (Auto) Not Reportable Baso % (Auto) Not Reportable Total Counted 100 Seg Neutrophils % 66.0 Band Neutrophils % 6.0 Lymphocytes % (Manual) 15.0 L Monocytes % (Manual) 5.0 Eosinophils % (Manual) 2.0 Metamyelocytes % 4.0 H Myelocytes % 2.0 H Neutrophils # (Manual) [id number] H Differential Comment 1+giant platelets RBC Morphology Not Reportable Anisocytosis 1+ H Target Cells 1+ H PT 24.8 H INR 2.3 H Sodium 130 L Potassium 4.5 Chloride 99.0 Carbon Dioxide 22.0 BUN 13.0 Creatinine 0.40 L Estimated GFR > 60.0 BUN/Creatinine Ratio 32.5 H Glucose 75 Calcium 7.4 L Phosphorus Magnesium Total Bilirubin 0.2 AST 35 ALT 28 Alkaline Phosphatase 229 H Total Protein 7.0 Albumin 2.5 L Globulin 4.5 H Albumin/Globulin Ratio 0.6 L Blood Type Antibody Screen Antibody Identification Crossmatch (AHG) Assessment & Plan Plan: Plan: No evidence of sepsis. Will continue TPN and encourage PO intake. May consider Megace to stimulate appetite. Agree with plans to transfer to [place]. Quality VTE Deep Vein Thrombosis/Pulmonary Embolism Present on Admission: Yes
--- NOTE | 2018-04-11 14:12 | PT.IPTN ---
Current Diagnoses Sepsis, unspecified organism (03/22/18) Hypocalcemia (03/22/18) Hypokalemia (03/22/18) Major depressive disorder, single episode, unspecified (03/22/18) Other pulmonary embolism without acute cor pulmonale (03/22/18) Chronic pulmonary edema (03/22/18) Acute postprocedural respiratory failure (03/22/18) Ulcerative colitis, unspecified, without complications (03/22/18) Perforation of intestine (nontraumatic) (03/22/18) Shortness of breath (03/22/18) Severe sepsis with septic shock (03/22/18) Physical Therapy Treatment Note M2 PT-IP Current Condition Start: 03/28/18 17:17 Freq: NEEDED Status: Active Protocol: Document 04/01/18 15:10 RCC (Rec: 04/01/18 16:30 RCC [id number]) Physical Therapy Current Condition Current Condition Evaluation Date 03/28/18 Treatment Diagnosis post-op colectomy for perforated bowel Onset Date 03/22/18 Post Operative Precautions Abdominal Surgery Precautions Log Roll Lifting Restrictions Gait Belt above Incisional Area Other Precautions contact precautions: MRSA on nares M3 PT-IP Subjective Start: 03/28/18 17:17 Freq: NEEDED Status: Active Protocol: Document 04/11/18 13:35 GGD (Rec: 04/11/18 14:12 GGD [id number]) Subjective Physical Therapy Visit Type Type Treatment Note Visit Start Time 13:30 Visit Stop Time 13:50 Total Visit Minutes 20 Number of GRINDER TENDER Visits 7 Physical Therapy Visit Comments Patient Comments Pt willing to get up and do some exercises. M4 PT-IP Mobility and Gait Start: 03/28/18 17:17 Freq: NEEDED Status: Active Protocol: Document 04/11/18 13:35 GGD (Rec: 04/11/18 14:12 GGD [id number]) PT-Bed Mobility Assessment Rolling Type of Rolling Log Rolling Level of Assist Standby Assistance Supine to Sit Supine to Sit Standby Assistance Sit to Supine Sit to Supine Standby Assistance Scooting Scooting to Edge of Bed Independent Scooting Up and Down in Bed Independent PT-Transfer Assessment Sit to and From Stand Sit to and from Stand Standby Assistance Equipment Transfer Assistive Device None Gait Belt Orthotic/Prosthetic Devices or Brace: Yes Transfers Transfer Destination Bed Transfer Ability Level of Assist Standby Assistance Gait Assessment Gait Gait Assistance Required: Contact Guard Assist Distance (Feet) (feet) 20 Assistive Devices Assistive Device None Gait Belt Factors Limiting Gait Function Factors Limiting Gait Function Decreased Activity Tolerance Decreased Strength Comments Gait Comments Pt had no LOB or unsteadiness with gait. He did need seated rest breaks . M5 PT-IP Objective Assessments Start: 03/28/18 17:17 Freq: NEEDED Status: Active Protocol: Document 03/28/18 17:17 AB (Rec: 03/28/18 17:27 AB [id number]) Orientation Orientation/Cognition Level of Alertness Alert Orientation Name Situation Strength Lower Extremity Strength Assessment Bilaterally Impaired Hip 3+/5 Knee 3/5 Ankle 3+/5 M6 PT-IP Treatment Start: 03/28/18 17:17 Freq: NEEDED Status: Active Protocol: Document 04/11/18 13:35 GGD (Rec: 04/11/18 14:12 GGD [id number]) Physical Therapy Treatment Other Treatments Other Treatment Performed Standing heel raises, mini Squats, hip abd. Stand balance NBOS with EO/EC, tandem EO/EC . M7 PT-IP Assessment and Plan Start: 03/28/18 17:17 Freq: NEEDED Status: Active Protocol: Document 04/11/18 13:35 GGD (Rec: 04/11/18 14:12 GGD [id number]) PT Summary Assessment and Plan Summary Assessment Summary Pt fatigued and need rest breaks. He was safe with gait without assistive device, but had increase in fatigue. Treatment Plan Other Recommendations and Next Treatment Standing exercise and balance, Focus short gait. Recommendations To Nursing Amount of Assist Needed 1 Person Assist Discharge Recommendations PT Discharge Recommendations Home with Assistance Home Health
[2018-04-11 15:00] VITALS: BP 113/68; PULSE 104; RESP 12; TEMP 36.8; O2SAT 99
[2018-04-11 16:07] VITALS: O2SAT 96
[2018-04-11] MEDS: WARFARIN 5 MG TABLET PO (17:07)
[2018-04-11] MEDS: FAT EMULSIONS 50 GM/250 ML EMULSION IV (18:48)
[2018-04-11] MEDS: [UNRECOGNIZED DRUG - REMARK] 67.319 ML IV (19:02)
[2018-04-11 23:56] VITALS: BP 111/70; PULSE 101; RESP 16; TEMP 36.8; O2SAT 98
[2018-04-12] VITALS: O2SAT 98
[2018-04-12] MEDS: OXYCODONE IR 5 MG TABLET PO ×2 (03:52→11:20)
[2018-04-12] MEDS: PANTOPRAZOLE 40 MG TABLET PO (07:46)
[2018-04-12 08:12] VITALS: BP 110/71; PULSE 97; RESP 16; TEMP 36.4; O2SAT 98
[2018-04-12 09:40] VITALS: O2SAT 98
[2018-04-12] MEDS: ASPIRIN EC 325 MG TABLET PO (09:43)
[2018-04-12] MEDS: ARIPiprazole 10 MG TABLET 5 MG PO (09:43)
[2018-04-12] MEDS: MULTIVIT,CALC,MINS/IRON/FOLIC 1 TABLET 1 TAB PO (09:44)
[2018-04-12] MEDS: DRONABINOL 2.5 MG CAPSULE PO ×3 (09:44→20:23)
[2018-04-12] MEDS: SERTRALINE 50 MG TABLET 100 MG PO (09:44)
[2018-04-12 10:43] VITALS: O2SAT 98
--- NOTE | 2018-04-12 10:50 | PM.PN.1 ---
Subjective Interval history: Patient states he has feeling better. No fevers or abdominal pain. He continues to eat poorly. Exam Vital Signs (past 8 hours): Vital Signs - 8 hr 04/12/18 08:12 04/12/18 09:40 04/12/18 10:43 Temperature 97.5 F L Pulse Rate 97 H Respiratory Rate 16 Blood Pressure 110/71 Pulse Oximetry 98 98 98 Pulse Oximetry 98 Fraction of Inspired Oxygen 30 Oxygen Delivery Method Room Air Oxygen Flow Rate 0 Narrative Exam Narrative: Remarkably thin but pleasant man in no distress Lungs are clear bilaterally Abd: soft, flat, ostomy is viable and working with air and stool in the bag. Mindline incision is granulating. No purulent drainage or foul odor. Objective Labs Result Diagrams: 04/11/18 06:00 04/11/18 06:00 Assessment & Plan Plan: Plan: 1. Acute pulmonary embolism: Clinically stable. Full-dose Lovenox was initiated on the evening of 04/03/2018, stopped 04/11/2018 after 48 hr of therapeutic INR overlap on warfarin. Patient can follow with Dr. Cedillo at [facility] for outpatient monitoring. He should complete 90 day duration of oral anticoagulant therapy. Added aspirin 325 mg daily 04/11/2018 given significant thrombocytosis. Continue PPI for gastric protection. Recheck CBC tomorrow. 2. Aspiration pneumonia with acute hypoxic respiratory failure: Clinically resolving. He is off of supplemental oxygen. Treated with Tygacil and metronidazole through 04/05/2018. 3. Depression: Adequate control. Significant situational component. Continue Abilify 5 mg daily. He is also on sertraline 50 mg daily, increased 100 mg daily 04/11/[address] Finney's psychiatric consultation. 4. 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 Taking food by mouth and on TPN. Managed by surgery. 5. Septic shock: Resolved. Antibiotics per surgery. Note elevated rising WBC and platelet counts unclear whether due to active infection or inflammation. However he is afebrile with a benign abdominal exam. Case reviewed with surgery. Continue observation. PICC line replaced on 04/10/2018 as possible source of infection. Follow clinically. 6. Severe protein calorie malnutrition secondary to acute on chronic illness: He is on TPN for nutritional support. Encourage oral intake. Continue monitor his nutritional status. 7. Dysphagia: Likely secondary to muscle weakness. Followed by speech pathology. He is currently on nectar thick liquid. 8. Disposition: Awaiting insurance approval for transfer to [place]. Patient would benefit from LTAC due to profound weakness, compromise and need for ongoing therapy and TPN. Quality VTE Deep Vein Thrombosis/Pulmonary Embolism Present on Admission: Yes
--- NOTE | 2018-04-12 12:02 | PT.IPTN ---
Current Diagnoses Sepsis, unspecified organism (03/22/18) Hypocalcemia (03/22/18) Hypokalemia (03/22/18) Major depressive disorder, single episode, unspecified (03/22/18) Other pulmonary embolism without acute cor pulmonale (03/22/18) Chronic pulmonary edema (03/22/18) Acute postprocedural respiratory failure (03/22/18) Ulcerative colitis, unspecified, without complications (03/22/18) Perforation of intestine (nontraumatic) (03/22/18) Shortness of breath (03/22/18) Severe sepsis with septic shock (03/22/18) Physical Therapy Treatment Note M2 PT-IP Current Condition Start: 03/28/18 17:17 Freq: NEEDED Status: Active Protocol: Document 04/01/18 15:10 RCC (Rec: 04/01/18 16:30 RCC [id number]) Physical Therapy Current Condition Current Condition Evaluation Date 03/28/18 Treatment Diagnosis post-op colectomy for perforated bowel Onset Date 03/22/18 Post Operative Precautions Abdominal Surgery Precautions Log Roll Lifting Restrictions Gait Belt above Incisional Area Other Precautions contact precautions: MRSA on nares M3 PT-IP Subjective Start: 03/28/18 17:17 Freq: NEEDED Status: Active Protocol: Document 04/12/18 11:00 CLB (Rec: 04/12/18 12:01 CLB [id number]) Subjective Physical Therapy Visit Type Type Treatment Note Visit Start Time 11:00 Visit Stop Time 11:10 Total Visit Minutes 10 Number of FREELANCE PHOTOGRAPHER Visits 8 Physical Therapy Visit Comments Patient Comments Pt attempting getting up. Patient/Caregiver Goals going home M4 PT-IP Mobility and Gait Start: 03/28/18 17:17 Freq: NEEDED Status: Active Protocol: Document 04/12/18 11:00 CLB (Rec: 04/12/18 12:01 CLB [id number]) PT-Bed Mobility Assessment Rolling Type of Rolling Log Rolling Level of Assist Standby Assistance Supine to Sit Supine to Sit Standby Assistance Sit to Supine Sit to Supine Standby Assistance Scooting Scooting to Edge of Bed Independent Scooting Up and Down in Bed Independent PT-Transfer Assessment Equipment Transfer Assistive Device None Gait Belt Comments Mobility Comments Pt fatigued and had back pain that he stated was too severe to walk at this time. M5 PT-IP Objective Assessments Start: 03/28/18 17:17 Freq: NEEDED Status: Active Protocol: Document 03/28/18 17:17 AB (Rec: 03/28/18 17:27 AB [id number]) Orientation Orientation/Cognition Level of Alertness Alert Orientation Name Situation Strength Lower Extremity Strength Assessment Bilaterally Impaired Hip 3+/5 Knee 3/5 Ankle 3+/5 M6 PT-IP Treatment Start: 03/28/18 17:17 Freq: NEEDED Status: Active Protocol: Document 04/11/18 13:35 GGD (Rec: 04/11/18 14:12 GGD [id number]) Physical Therapy Treatment Other Treatments Other Treatment Performed Standing heel raises, mini Squats, hip abd. Stand balance NBOS with EO/EC, tandem EO/EC . M7 PT-IP Assessment and Plan Start: 03/28/18 17:17 Freq: NEEDED Status: Active Protocol: Document 04/12/18 11:00 CLB (Rec: 04/12/18 12:01 CLB [id number]) PT Summary Assessment and Plan Summary Assessment Summary Pt fatigued just sitting at EOB, pt had back pain that prevented him from ambulating or performing standing ther ex . Treatment Plan Other Recommendations and Next Treatment Standing exercise and balance, Focus short gait.
--- NOTE | 2018-04-12 14:22 | PM.PN.1 ---
Subjective Interval history: Patient states he has feeling better. No fevers or abdominal pain. He continues to eat poorly. Reports he had a pile of mashed potatoes for lunch. Still not hungry but seems much more motivated to get better. Brighter today. Discussed wound vac with patient and he will consider it. It would certainly speed healing of the midline wound if he is willing. Denies pain today. Says when he works with physical therapy his abdomen hurts and that is limiting for him. Exam Vital Signs (past 8 hours): Vital Signs - 8 hr 04/12/18 08:12 04/12/18 09:40 04/12/18 10:43 Temperature 97.5 F L Pulse Rate 97 H Respiratory Rate 16 Blood Pressure 110/71 Pulse Oximetry 98 98 98 Pulse Oximetry 98 Fraction of Inspired Oxygen 30 Oxygen Delivery Method Room Air Oxygen Flow Rate 0 Narrative Exam Narrative: Very pleasant today. No distress. ???I am fine???. Abdomen: Soft, flat, active bowel sounds. Right lower quadrant ostomy is healthy and working. Midline incision has a healthy bed of granulation tissue. No exposed suture material. Approximately 1.5 cm deep and 4-5 cm wide at the deepest point. Lungs: Clear bilaterally Objective Labs Result Diagrams: 04/11/18 06:00 04/11/18 06:00 Assessment & Plan Plan: Plan: 1. Will add in Megace today and see if we can stimulate his appetite a bit more. 2. Continue down to dry wound dressings 3. Continue TPN 4. Check labs in the morning Quality VTE Deep Vein Thrombosis/Pulmonary Embolism Present on Admission: Yes
--- NOTE | 2018-04-12 14:26 | P.PN_ITS ---
Subjective Interval history: Patient states he has feeling better. No fevers or abdominal pain. He continues to eat poorly. Reports he had a pile of mashed potatoes for lunch. Still not hungry but seems much more motivated to get better. Brighter today. Discussed wound vac with patient and he will consider it. It would certainly speed healing of the midline wound if he is willing. Denies pain today. Says when he works with physical therapy his abdomen hurts and that is limiting for him. Exam Vital Signs (past 8 hours): Vital Signs - 8 hr 3 04/12/18 08:12 04/12/18 09:40 04/12/18 10:43 Temperature 97.5 F L Pulse Rate 97 H Respiratory Rate 16 Blood Pressure 110/71 Pulse Oximetry 98 98 98 Pulse Oximetry 98 Fraction of Inspired Oxygen 30 Oxygen Delivery Method Room Air Oxygen Flow Rate 0 Narrative Exam Narrative: Very pleasant today. No distress. ?I am fine?. Abdomen: Soft, flat, active bowel sounds. Right lower quadrant ostomy is healthy and working. Midline incision has a healthy bed of granulation tissue. No exposed suture material. Approximately 1.5 cm deep and 4-5 cm wide at the deepest point. Lungs: Clear bilaterally Objective Labs Result Diagrams: 04/11/18 06:00 04/11/18 06:00 Assessment & Plan Plan: Plan: 1. Will add in Megace today and see if we can stimulate his appetite a bit more. 2. Continue down to dry wound dressings 3. Continue TPN 4. Check labs in the morning Quality VTE Deep Vein Thrombosis/Pulmonary Embolism Present on Admission: Yes
--- NOTE | 2018-04-12 14:32 | PC.NURSE ---
Patient refused transfer this AM with PT, c/o back pain and only able to sit at edge of bed for a moment. Doctor Mariza changed abdominal dressing (ABD pad; wet to dry). PICC infusing TPN. Labs order for AM. Patient denies pain at this time.
[2018-04-12 16:05] VITALS: BP 110/71; PULSE 108; RESP 15; TEMP 36.6; O2SAT 98
[2018-04-12] MEDS: WARFARIN 5 MG TABLET PO (17:00)
[2018-04-12] MEDS: FAT EMULSIONS 50 GM/250 ML EMULSION IV (18:06)
[2018-04-12] MEDS: [UNRECOGNIZED DRUG - REMARK] 67.319 ML IV (18:11)
[2018-04-12 19:35] VITALS: BP 112/75; PULSE 110; RESP 24; TEMP 37.1; O2SAT 98
[2018-04-12] MEDS: MEGESTROL 20 MG TABLET 40 MG PO (20:23)
--- NOTE | 2018-04-13 | DI.RAD.S_ITS ---
PROCEDURE: FL BARIUM SWALLOW W SPEECH INDICATIONS: aspiration TECHNIQUE: Examination was conducted in conjunction with speech pathology per standard protocol. In the lateral projection, filming was performed of the patient swallowing. AP projection filming may also be performed with patient swallowing. COMPARISON: [facility], , [place] BARIUM SWALLOW W SPEECH, 04/07/2018, 8:34. FINDINGS: Function: The oral preparatory phase appears normal, with proper containment. The subsequent oral propulsive phase, pharyngeal phase, and esophageal phase of swallowing also appear normal with all proffered substances. Laryngotracheal penetration and aspiration occurred. No pathologic vallecular pooling. Morphology: No cricopharyngeal bar is identified. No cervical esophageal webs. No Zenker's diverticulum. No strictures. IMPRESSION: Abnormal modified barium swallow with aspiration. Please see speech therapist report for details. Dictated by: Jaxson Levi M.D. on 04/13/2018 at 13:31 Approved by: Jaxson Levi M.D. on 04/13/2018 at 13:33
[2018-04-13 00:09] VITALS: BP 116/78; PULSE 92; RESP 20; TEMP 36.8; O2SAT 100
[2018-04-13] MEDS: LORazepam 2 MG/ML SYRINGE 1 MG IV (00:29)
[2018-04-13 05:53] LABS: Hematocrit 30.4 % (41-53); Hemoglobin 10.1 g/dL (13.5-17.5); Mean Corpuscular HGB Conc 33.1 % (30-36); Mean Corpuscular Hemoglobin 28.6 PG (26-34); Mean Corpuscular Volume 86.6 fL (80-100); Red Blood Cell Count 3.52 X10^6/uL (4.5-5.9); Red Cell Distribution Width 17.1 % (11.6-14.8)
[2018-04-13 05:54] LABS: INR 2.2 (0.9-1.3); Prothrombin Time 24.1 SECONDS (10.1-12.7)
[2018-04-13 05:57] LABS: Add Manual Diff / Slide Review YES
[2018-04-13 06:13] LABS: Alanine Aminotransferase 45 IU/L (21-72); Albumin 2.8 g/dL (3.5-5.0); Albumin Globulin Ratio 0.6 (1.0-2.8); Alkaline Phosphatase 288 U/L (38-126); Aspartate Aminotransferase 58 IU/L (17-59); BUN Creatinine Ratio 53.3 (6-22); Bilirubin Total 0.2 mg/dL (0.2-1.3); Calcium 7.9 mg/dL (8.4-10.2); Estimated Glomerular Filt Rate > 60.0 mL/min (>60); Globulin 4.5 g/dL (1.7-4.1); Glucose 113 mg/dL (70-100); HEMOLYSIS 19 (0-50); Potassium 4.3 mmol/L (3.4-5.1); Sodium 134 mmol/L (137-145); Total Protein 7.3 g/dL (6.3-8.2)
[2018-04-13 06:15] LABS: Platelet Count 1556 X10^3/uL (150-400); White Blood Cell Count 42.7 X10^3/uL (4.5-11.0)
[2018-04-13 06:19] LABS: Prealbumin 21.8 mg/dL (17.6-36.0)
[2018-04-13 06:20] LABS: Neutrophils Absolute Manual 30744 /uL (3000-5900); Total Cells Counted 100
[2018-04-13 06:21] LABS: Anisocytosis 2+; Target Cells 1+
[2018-04-13] MEDS: PANTOPRAZOLE 40 MG TABLET PO (07:19)
[2018-04-13 08:20] VITALS: BP 119/78; PULSE 114; RESP 16; TEMP 36.7; O2SAT 98
[2018-04-13] MEDS: MEGESTROL 20 MG TABLET 40 MG PO ×2 (08:23→21:20)
[2018-04-13] MEDS: MULTIVIT,CALC,MINS/IRON/FOLIC 1 TABLET 1 TAB PO (08:23)
[2018-04-13] MEDS: SERTRALINE 50 MG TABLET 100 MG PO (08:23)
[2018-04-13] MEDS: DRONABINOL 2.5 MG CAPSULE PO ×2 (08:23→21:22)
[2018-04-13] MEDS: ARIPiprazole 10 MG TABLET 5 MG PO (08:23)
[2018-04-13] MEDS: ASPIRIN EC 325 MG TABLET PO (08:23)
[2018-04-13 10:41] VITALS: BP 125/86; PULSE 122; RESP 20; O2SAT 100
--- NOTE | 2018-04-13 11:02 | OT.IP.TRT ---
Current Diagnoses Sepsis, unspecified organism (03/22/18) Hypocalcemia (03/22/18) Hypokalemia (03/22/18) Major depressive disorder, single episode, unspecified (03/22/18) Other pulmonary embolism without acute cor pulmonale (03/22/18) Chronic pulmonary edema (03/22/18) Acute postprocedural respiratory failure (03/22/18) Ulcerative colitis, unspecified, without complications (03/22/18) Perforation of intestine (nontraumatic) (03/22/18) Shortness of breath (03/22/18) Severe sepsis with septic shock (03/22/18) Occupational Therapy Treatment Note M2 OT-IP Current Condition Start: 04/07/18 15:30 Freq: Status: Active Protocol: Document 04/11/18 12:29 ADH (Rec: 04/11/18 12:43 ADH [id number]) Occupational Therapy Current Condition Current Condition Evaluation Date 04/07/18 Treatment Diagnosis decreased BUE/hand strength, endurance and self care skills Diagnosis Onset Date 03/22/18 Post Operative Precautions Abdominal Surgery Precautions Log Roll Lifting Restrictions Gait Belt above Incisional Area Other Precautions open abdominal incision with wet to dry dressings and new ileostomy M3 OT- IP Subjective and Pain Start: 04/07/18 15:30 Freq: Status: Active Protocol: Document 04/13/18 10:00 [facility] (Rec: 04/13/18 11:02 [facility] [id number]) OT- Subjective Occupational Therapy Visit Type Type Treatment Note Visit Start Time 10:00 Visit Stop Time 10:40 Total Visit Minutes 40 Notes Pt agreeable to take a shower. Pt's HR 140 after showering and even after resting still 120, nursing notified. O2 on RA 100% Occupational Therapy Visit Comments Patient Comments I am really tired today. OT Pain Assessment Pain When Pain Assessed At Rest Pain Present Pain Present Denied Pain M4 OT- IP ADL's Start: 04/07/18 15:30 Freq: Status: Active Protocol: Document 04/13/18 10:00 [facility] (Rec: 04/13/18 11:02 [facility] [id number]) OT ADL-Dressing General Eval Upper Body Dressing Ability Minimal Assistance Lower Body Dressing Ability Moderate Assistance Areas Needing Assistance Retrieving/Set-up of Clothing Underpants/Brief OT ADL-Bathing Bathing Type Bathing Type Shower General Evaluation Bathing Ability Moderate Assistance Areas Needing Assistance Retrieving/Setting Up Items Wash/Dry Back Wash/Dry Perineal Area Devices Bathing Equipment Hand Held Shower Sprayer Shower Chair with Arms Grab Bars Comments OT Bathing Comments Pt also needing assist to wash his hair. M5 OT- IP IADL's Start: 04/07/18 15:30 Freq: Status: Active Protocol: Document 04/07/18 15:26 PJM (Rec: 04/07/18 15:50 PJM [id number]) OT-Instrumental Activities of Daily Living Deficits IADL Deficits Identified Deficits Home Safety Awareness Awareness of Need for Assistance at Home Decreased Awareness Meal Preparation Meal Preparation Comments total assist on modified diet at present, DMA w/nectar thicks Ticket Speculator Ticket Speculator Comments Total assist Driving Driving Comments pt unable to drive at present M6 OT- IP Functional Cognition Start: 04/07/18 15:30 Freq: Status: Active Protocol: Document 04/13/18 10:00 [facility] (Rec: 04/13/18 11:02 [facility] [id number]) Cognitive Factors Limiting Selfcare Function Cognitive Ability Level of Alertness Alert Attention Span Ability Capable of Focused Attention Capable of Sustained Attention Ability to Follow Commands Able to Follow One Step Commands Able to Follow Multi-Step Commands Safety Awareness Underestimates Need for Assistance Cognitive Comments Cognitive Assessment Comments Pt able to follow 1-2 step today and still needing vc for safety, reminder to sit to take off brief, reminders to do pericare needs, and to have 4ww in front of him. M7 OT- IP Mobility and Balance Start: 04/07/18 15:30 Freq: Status: Active Protocol: Document 04/13/18 10:00 [facility] (Rec: 04/13/18 11:02 [facility] [id number]) OT- Bed Mobility Assessment Rolling Type of Rolling Roll to Right Supine to Sit Supine to Sit Assist Moderate Assistance Bedrails OT-Transfer Assessment Sit to and From Stand Sit to and from Stand Standby Assistance Contact Guard Assistance Transfers Transfer Ability Standby Assistance Technique Transfer Destination Bedside Commode Chair Shower Stall Transfer Technique Stand Step Pivot Devices Transfer Assistive Devices 4 Wheeled Walker Comments Mobility Comments Pt needing more assist today from supine to sit, MODA however pt was flat versus HOB up. M8 OT- IP Objective Assessments Start: 04/07/18 15:30 Freq: Status: Active Protocol: Document 04/09/18 17:27 PJM (Rec: 04/09/18 17:38 PJM [id number]) OT Strength Comments Strength Comments Pt seen for education re: light blue theraband ex for 5 reps unilateral shldr flex, 5 reps bilateral horiz abduction , 5 reps biceps curls. Pt also educated re; red theraputty for 10 reps mass finger flex and 5 reps finger ext. M9 OT- IP Assessment and Plan Start: 04/07/18 15:30 Freq: Status: Active Protocol: Document 04/13/18 10:00 [facility] (Rec: 04/13/18 11:02 [facility] [id number]) OT Summary Assessment and Plan Potential Rehabilitation Potential Fair Summary OT Impairments Strength Balance Coordination Functional Cognition Dressing Toileting Bathing Toilet Transfers Shower Transfers Progress Towards Goals Slow Progress due to Medical Issues Slow Progress due to Activity Tolerance Assessment Summary Pt decreased activity tolerance, but still willing to initiate doing ADL's with increased time and also initiated doing his own BUE exercises. Goals Self-Feeding Goal Standby Assistance Grooming Goal Standby Assistance Dressing Goal Standby Assistance Toileting Goal Standby Assistance Bathing Goal Standby Assistance Toilet Transfer Goal Standby Assistance Shower Transfer Goal Standby Assistance Patient/Caregiver Education Goal Demonstrate Post-Op Precautions Demonstrate Energy Conservation and Pacing Caregiver Independent Assisting Patient OT-Other Goals Pt to be indep with BUE/hand strengthening program with good technique. Days to Meet Goals 7 Frequency of Treatment Frequency Of Treatment Once a Day Treatment Plan OT Treatment Plan ADL Training Functional Mobility Therapeutic Exercises Patient/Family Education Discharge Planning Other Treatment Recommendations and Next Activity tolerance with ADL's. Treatment Focus Discharge Recommendations OT Discharge Recommendations LTAC Home Equipment Needs defer to facility
[2018-04-13] MEDS: SODIUM CHLORIDE 0.9% FLUSH 10 ML IV (11:44)
--- NOTE | 2018-04-13 12:18 | PM.PN.1 ---
Subjective Interval history: No new complaints today continues to be poorly Exam Vital Signs (past 8 hours): Vital Signs - 8 hr 04/13/18 08:20 04/13/18 10:41 Temperature 98.1 F Pulse Rate 114 H 122 H Respiratory Rate 16 20 Blood Pressure 119/78 125/86 H Pulse Oximetry 98 100 Pulse Oximetry 100 Fraction of Inspired Oxygen 30 Oxygen Delivery Method Room Air Oxygen Flow Rate 0 Narrative Exam Narrative: Extremely thin middle-aged male no acute distress awake alert Neck supple Lungs clear Heart regular rhythm Abdomen thin soft ostomy in place midline incision granulating no signs of infection Skin is warm and dry no signs of infection or the PICC line Neuro exam awake alert no focal deficits Objective Labs Result Diagrams: 04/13/18 05:35 04/13/18 05:35 Labs: Laboratory Results - last 24 hr 04/13/18 04/13/18 04/13/18 05:35 05:35 05:35 WBC 42.7 H* RBC 3.52 L Hgb 10.1 L Hct 30.4 L MCV 86.6 MCH 28.6 MCHC 33.1 RDW 17.1 H Plt Count 1556 H* Neut % (Auto) Not Reportable Lymph % (Auto) Not Reportable [place] % (Auto) Not Reportable Eos % (Auto) Not Reportable Baso % (Auto) Not Reportable Total Counted 100 Seg Neutrophils % 66.0 Band Neutrophils % 6.0 Lymphocytes % (Manual) 16.0 L Atypical Lymphs % 1.0 H Monocytes % (Manual) 5.0 Eosinophils % (Manual) 3.0 Metamyelocytes % 2.0 H Myelocytes % 1.0 H Neutrophils # (Manual) 09879 H RBC Morphology Not Reportable Anisocytosis 2+ H Target Cells 1+ H PT 24.1 H INR 2.2 H Sodium 134 L Potassium 4.3 Chloride 101.0 Carbon Dioxide 20.0 L BUN 16.0 Creatinine 0.30 L Estimated GFR > 60.0 BUN/Creatinine Ratio 53.3 H Glucose 113 H Calcium 7.9 L Total Bilirubin 0.2 AST 58 ALT 45 Alkaline Phosphatase 288 H Total Protein 7.3 Albumin 2.8 L Globulin 4.5 H Albumin/Globulin Ratio 0.6 L Prealbumin 21.8 Assessment & Plan Plan: Plan: 1. Acute pulmonary embolism: Clinically stable. Full-dose Lovenox was initiated on the evening of 04/03/2018, stopped 04/11/2018 after 48 hr of therapeutic INR overlap on warfarin. Patient can follow with Dr. Cedillo at [facility] for outpatient monitoring. He should complete 90 day duration of oral anticoagulant therapy. Added aspirin 325 mg daily 04/11/2018 given significant thrombocytosis. Continue PPI for gastric protection. INR 2.2 hematocrit 30.4 2. Aspiration pneumonia with acute hypoxic respiratory failure: Clinically resolving. He is off of supplemental oxygen. Treated with Tygacil and metronidazole through 04/05/2018. Speech therapy is continued to be concerned about silent aspiration he has passed a bedside eval they are requesting him to have another modified barium swallow that will be done today. 3. Depression: Adequate control. Significant situational component. Continue Abilify 5 mg daily. He is also on sertraline 50 mg daily, increased 100 mg daily 04/11/[address] Finney's psychiatric consultation. 4. 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 Taking food by mouth and on TPN. Managed by surgery. 5. Septic shock: Resolved. Antibiotics per surgery. Note elevated rising WBC and platelet counts unclear whether due to active infection or inflammation. However he is afebrile with a benign abdominal exam. White count up to 42,000 this morning no obvious sites of infection and no fevers. We will watch carefully PICC line replaced on 04/10/2018 as possible source of infection. Follow clinically. 6. Severe protein calorie malnutrition secondary to acute on chronic illness: He is on TPN for nutritional support. Encourage oral intake. Continue monitor his nutritional status. 7. Dysphagia: Likely secondary to muscle weakness. Followed by speech pathology. He is currently on nectar thick liquid. 8. Disposition: Awaiting insurance approval for transfer to [place]. Patient would benefit from LTAC due to profound weakness, compromise and need for ongoing therapy and TPN. Quality VTE Deep Vein Thrombosis/Pulmonary Embolism Present on Admission: Yes
--- NOTE | 2018-04-13 12:36 | ST.IPTN ---
INSURANCE OFFICE MANAGER Dysphagia Treatment INSURANCE OFFICE MANAGER Dysphagia Treatment Start: 04/06/18 13:05 Freq: Status: Active Protocol: Document 04/13/18 12:17 LNK (Rec: 04/13/18 12:35 LNK [id number]) Dysphagia Treatment Session Time Visit Start Time 11:30 Visit Stop Time 12:00 Total Visit Minutes 30 Setting Assessment Location Acute Care Visit Type Note Type Treatment Note Next Note Type Next Note Type Re-Evaluation Patient Information Identification Type Name ID Wristband Treatment Liquids Trialed [place] Administration Type Cup Single Sip Oral Strategies Upright at 90 degrees Lingual Sweep Controlled Bite/Sip Size Pharyngeal Phase Strategies Sitting Upright (90 deg) Chin Tuck Supraglottic Swallow Treatment Activities Pt has been not eating and refused to order lunch today. pt c/o no appetite and the food is not palatable. Pt continues to have high white blood cell count. Discussed the possibility of a repeat MBSS to r/o aspiration and to determine the best diet for improving the pt's appetite. Trial nectar thick liquids x1 tsp controlled cup sip appeared to be swallowed safely; however, pt is a silent asiration risk. MBSS scheduled for 1300 today Assessment Patient Response to Treatment Good Rehab Potential Fair Assessment of Improvement Pt is not eating and is refulsing meals. Nursing is awaiting [place] approval for transfer to [place]. Prognosis is fair to good Diet Recommendations Recommendations Continue Current Diet Liquids Order [place] Diet Order Dysphagia Advanced Medication Recommendations As Tolerated Aspiration Precautions Recommended Precautions Upright at 90 Degrees Frequent Rest Periods Chin Tuck Effortful Swallow Double Swallow Supraglottic Swallow Treatment Plan Placement Recommendation after Discharge Other Appropriate for Continued Therapy Yes Therapy Recommendations MBSS Dysphagia Goals Pt will safely tolerate the least-restrictive diet without aspiration. Pt will implement safe swallow strategies to reduce aspiration risk. Pt will receive education and training regarding aspiration risk and demonstrate verbal understanding.
[2018-04-13 14:52] LABS: Lactate Dehydrogenase 607 U/L (313-618); Uric Acid 1.9 mg/dL (3.5-8.5)
--- NOTE | 2018-04-13 15:34 | PT.IPTN ---
Current Diagnoses Sepsis, unspecified organism (03/22/18) Hypocalcemia (03/22/18) Hypokalemia (03/22/18) Major depressive disorder, single episode, unspecified (03/22/18) Other pulmonary embolism without acute cor pulmonale (03/22/18) Chronic pulmonary edema (03/22/18) Acute postprocedural respiratory failure (03/22/18) Ulcerative colitis, unspecified, without complications (03/22/18) Perforation of intestine (nontraumatic) (03/22/18) Shortness of breath (03/22/18) Severe sepsis with septic shock (03/22/18) Physical Therapy Treatment Note M2 PT-IP Current Condition Start: 03/28/18 17:17 Freq: NEEDED Status: Active Protocol: Document 04/01/18 15:10 RCC (Rec: 04/01/18 16:30 RCC [email or web address]) Physical Therapy Current Condition Current Condition Evaluation Date 03/28/18 Treatment Diagnosis post-op colectomy for perforated bowel Onset Date 03/22/18 Post Operative Precautions Abdominal Surgery Precautions Log Roll Lifting Restrictions Gait Belt above Incisional Area Other Precautions contact precautions: MRSA on nares M3 PT-IP Subjective Start: 03/28/18 17:17 Freq: NEEDED Status: Active Protocol: Document 04/13/18 14:25 CLB (Rec: 04/13/18 15:34 CLB [id number]) Subjective Physical Therapy Visit Type Type Patient Refusal Notes Pt refused due to fatigue after shower with OT this morning and had recently returned to the room from testing. Will check with pt in AM.
--- NOTE | 2018-04-13 15:53 | ST.IPTN ---
HAND ASSEMBLER Dysphagia Treatment HAND ASSEMBLER Dysphagia Treatment Start: 04/06/18 13:05 Freq: Status: Active Protocol: Document 04/13/18 15:46 MRM (Rec: 04/13/18 15:53 MRM [id number]) Dysphagia Treatment Session Time Visit Start Time 14:50 Visit Stop Time 15:10 Total Visit Minutes 20 Setting Assessment Location Acute Care Visit Type Note Type Treatment Note Next Note Type Next Note Type Treatment Note Patient Information Identification Type Name Subjective Observations Patient awake and resting in bed with no family present. He requested HAND ASSEMBLER to review the MBS with him and discuss how to proceed. HAND ASSEMBLER provided specific details regarding the results and the patient's overall status. Treatment Treatment Activities HAND ASSEMBLER provided education regarding his new diet and how his overall strength impacts his safety. HAND ASSEMBLER provided education regarding thin v. nectar thick liquids and the implication of aspiration with these liquids. HAND ASSEMBLER also provided education regarding compensatory strategies to prevent aspiration and strongly encouraged the patient to implement these in order to regain necessary strength for improvement. The patient verbalized understanding and agreed. HAND ASSEMBLER discussed food preparation and encouraged the patient to call the kitchen to order a vegetable tray and/or eggs. He stated that he did want to eat and that he would like a consult from the kitchen. HAND ASSEMBLER relayed this information to RN , Sophia, who verbalized understanding. The patient stated that he would particiapte in strengthening exercises and implement compensatory strategies needed in order to prevent further aspiration. He thanked HAND ASSEMBLER for the information and stated that he would participate in any care necessary. No trials adminsitered this session. Assessment Patient Response to Treatment Good Rehab Potential Good Diet Recommendations Recommendations Continue Current Diet Liquids Order Thin Diet Order Mechanical Soft Medication Recommendations As Tolerated Additional Dietary Needs Encourage to Self-Feed Reminders to Use Strategies Aspiration Precautions Recommended Precautions Upright at 90 Degrees Alternate Liquids/Solids Frequent Rest Periods Small Bites/Sips Chin Tuck Effortful Swallow Double Swallow Supraglottic Swallow Supersupraglottic Swallow Aron Maneuvor Additional Precautions Mandatory double swallow/chin tuck with rest periods Treatment Plan Placement Recommendation after Discharge Inpatient Rehab Facility [facility] Appropriate for Continued Therapy Yes Therapy Recommendations Patient will comprehend education regarding swallow and implement necessary behaviors to improve swallow function. Mandatory double swallow/ effortful swallow/chin tuck in order to prevent aspiration. Monitor lungs. Chest X-ray recommended to determine the status of his lung function due to observed aspiration, silent in nature, from the MBS adminsitered today as well as the patient's increase in white blood cell count (40s). HAND ASSEMBLER will follow up tomorrow Dysphagia Goals Pt will safely tolerate the least-restrictive diet without aspiration. Pt will implement safe swallow strategies to reduce aspiration risk. Pt will receive education and training regarding aspiration risk and demonstrate verbal understanding. Referrals/Other Recommended Referrals Dietary Consult
--- NOTE | 2018-04-13 16:00 | ST.SWALLOW ---
Visit Care Team Role Provider Type Selvin Finney DO Other Providers Physician Specialty: Psychiatry Address: [address] [place], [address] Email: [email or web address] Peguero MD Other Providers Physician Specialty: Oncology Address: [address] [place] [address], [id number] Email: Family Provider Specialty: Address: Phone: Fax: Email: Kapil Grace DO Emergency Provider Physician Specialty: Emergency Medicine Address: [address] [place] [address], [address] Email: [email or web address] Alka Martinez MD Admit Provider Physician Attending Provider Primary Care Provider Specialty: Internal Medicine Address: [address] [place] [address], [id number] Email: Modified Barium Swallow Study JOIST SETTER Modified Barium Swallow Study Start: 04/07/18 11:32 Freq: Status: Active Protocol: Document 04/07/18 11:32 MRM (Rec: 04/07/18 11:57 MRM [id number]) Modified Barium Swallow Study Total Time Visit Start Time 08:30 Visit Stop Time 09:30 Total Visit Minutes 60 Visit Information Insurance Information Sem[employer] Referral Referring Physician Dr Martinez Reason for Referral Aspiration Setting Setting Acute Care Patient Information Identification Type Name Patient History Pt was observed by nursing to be having difficulty with swallowing thin liquids during his meals. Order received for swllowing assesment on 11/10. Swallowing evaluation to r/o aspiration. PT has been in the hospital for several days. He was intubated following his surgrery for five days. Was previously on a full liquid diet, but placed on nectar thick liquids after swallow evaluation on 04/04/18. Patient's lungs have continued to decline, as has his overall strength. Suction has been required at bedside, and he has been suctioning himself when needed. Significant secretions have been expelled. Patient continued to exhibit overall decline on 04/06/18 and an MBS was requested to evaluate the nature of his swallowing. Chest xray (04/03/18) indicated : Lungs and pleura: No acute airspace opacities. Small right and trace left basal pleural effusions are present, causing bilateral lower lobe compressive atelectasis. NEW CXR (04/06/18) Indicated: Patchy opacities in lung bases bilaterally compatible with aspiration, atelectasis or pneumonia. Trace bilateral pleural effusions. PMH: Sepsis, unspecified organism ( 03/22/18) Hypocalcemia (03/22/18) Hypokalemia (03/22/18) Chronic pulmonary edema (03/22) Acute postprocedural respiratory failure (03/22/18) Ulcerative colitis, unspecified, without complications (03/22/18) Perforation of intestine ( nontraumatic) (03/22/18) Severe sepsis with septic shock (03/22/18) Subjective Observations Patient arrived to the MBS suite via wheelchair. No complaints of pain pre/post. He was very weak and fatiuged quickly. O2 support and suction were set up prior to the study. He required suction immediately after his first swallow attempt. Patient Positioning Position View Lateral Imaging Lateral View Textures Administered Trials Presented Thin Liquid via Cup [place] Liquid via Cup Dysphagia Blenderized Textures Dysphagia Mechanical Textures Dysphagia Advanced Textures Regular Textures Oral Phase Source: MBSIMP (TM) (C) Bolus Specific Scoring Grid Lip Closure No Impairment (WNL) Tongue Control During Bolus Hold WFL Bolus Prep/Mastication Moderate Impairment Bolus Transport/Lingual Motion No Impairment (WNL) A/P Lingual Propulsion Delay No Oral Residue Mild Impairment Residue Clearing Mild Impairment Nasal Regurgitation No Pharyngeal Phase Source: MBSIMP (TM) (C) Bolus Specific Scoring Grid Delayed Initiation of Pharyngeal Swallow No Soft Palate Elevation No Impairment (WNL) Tongue Base Strength/Range of Motion Mild Impairment Residue Along the Tongue Base Yes Clearance of Residue Along Tongue Base Moderate Impairment Laryngeal Elevation Moderate Impairment Anterior Hyoid Movement Moderate Impairment Epiglottic Range of Motion Moderate Impairment Vallecular Residue Yes: Observed with all trials Clearance of Vallecular Residue Minimal Impairment Laryngeal Vestibular Closure Moderate Impairment Pharyngeal Stripping Wave Minimal Impairment Pharyngeal Contraction Minimal Impairment Posterior Pharyngeal Wall Residue No Clearance of Posterior Pharyngeal Wall WFL Residue Upper Esophageal Sphincter Opening WFL Residue in the Pyriform Sinuses No: Trace amount observed with liquids and puree applesauce Clearance of Residue in the Pyriform Minimal Impairment Sinuses Esophageal Clearance Upright Position WFL Pharyngoesophageal Backflow Observed No A/P View Esophageal Observations Esophageal Function No significant esophageal observations. Please refer to Radiology report from Dr Ortega. Clinical Impressions Dysphagia Type Moderate-severe oropharyngeal dyspahgia Findings Moderate-severe oropharyngeal dysphagia secondary to severe atrophy and fatigue causing decline in musculature function. Patient's primary deficit is significantly reduced hyolarynegal eleavation and excursion, which inhibits adequate laryngeal elevation for airway protection. In addition to this, the patient also exhibits reduced tongue base strength, decreasing epiglottic inversion, which also creates reduced airway closure required for laryngeal seal to prevent aspiration. Derrick aspiration with immediate cough response was obsereved x1 with thin liquids via cup due to inadequate laryngeal closure from decreased laryngeal eleavation and decreased epiglottic inversion. With nectar thick liquids via cup, the patient was obsereved to penetrate silently into laryngeal vestibule with nectar thick liquids without any compensatory strategies. With throat clear and extra swallows, he was able to retract a signficant amount of the residue from this penetration, however, after multiple swallows, he did aspirate a trace amount of this residue. With a chin tuck , however, he was successful in swallowing nectar thick liquids without penetration. No penetration observed with puree applesauce, soft fruit or a regular cracker. He did exhibit moderate-severe vallecular residue with solids . With additional swallows, however, he was able to successfully clear this residue without penetration. In trials of solid textures, patient was observed to fatigue quickly during mastication with limited lingual movement and reduced mandibular motion. No premature spillage was observed, however. Due to this consistent decline in strength, soft solids are recommended at this time. RECOMMEND: [place] thick liquids with dysphagia mechanical textures. Please add moisture to meals and provide 1:1 supervision to monitor patient for fatigue. Frequent rest periods are highly recommended in order to maintain safety. Patient's greatest barrier to improvement in his gross overall decline in status with significantly reduced strength. JOIST SETTER will follow up for education and strengthening exercises. Rehabilitation Potential Excellent Patient Appropriate for Therapy Yes Recommendations Diet Liquids Order [place] Diet Order Dysphagia Mechanical Medication Recommendation As Tolerated Whole in Carrier Additional Dietary Needs Chopped Food Single Sips No Straws 1:1 Supervision Encourage to Self-Feed Reminders to Use Strategies Aspiration Precautions Recommended Precautions Upright at 90 Degrees Alternate Liquids/Solids Frequent Rest Periods Small Bites/Sips Chin Tuck Effortful Swallow Double Swallow Lingual Sweep Supraglottic Swallow Aorn Maneuvor Treatment Plan Therapy Recommendations Inpatient Speech Therapy Oral Motor Exercises Lingual Exercises Base of Tongue Exercises Compensatory Strategy Education Recommended Referrals Dietary Consult Compensatory Strategies Recommendations Sitting Upright (90 deg) Chin Tuck Double Swallow Supraglottic Swallow Mendelsonn Maneuver Small Bites and Sips Alternate Liquids/Solids Additional Compensatory Strategies Frequent rest periods; Recommended laryngeal strengthening exercises Short Term Goals Patient will tolerate nectar thick liquids and dysphagia mechanical textures without overt s/s of aspiration. Patient will implement chin tuck/effortful swallow/double swallow with all liquids intake to prevent penetration and/or aspiration. Patient will perform laryngeal strengthening exercises to improve overall laryngeal function to improve swallow ability. 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 Care Facility JOIST SETTER Modified Barium Swallow Study Start: 04/13/18 12:16 Freq: Status: Active Protocol: Document 04/13/18 14:57 LNK (Rec: 04/13/18 15:57 LNK [email or web address]) Modified Barium Swallow Study Total Time Visit Start Time 13:00 Visit Stop Time 14:00 Total Visit Minutes 60 Setting Setting Outpatient Care Patient Information Identification Type Name ID Wristband Patient Positioning Position View Lateral Imaging Lateral View Textures Administered Trials Presented Thin Liquid via Spoon Thin Liquid via Cup [place] Liquid via Spoon [place] Liquid via Cup Dysphagia Advanced Textures Regular Textures Oral Phase Source: MBSIMP (TM) (C) Bolus Specific Scoring Grid Lip Closure No Impairment (WNL) Tongue Control During Bolus Hold Mild Impairment Bolus Prep/Mastication Mild Impairment Bolus Transport/Lingual Motion Minimal Impairment A/P Lingual Propulsion Delay No Oral Residue No Impairment (WNL) Residue Clearing No Impairment (WNL) Nasal Regurgitation No Additional Oral Phase Observations Chewing quickly fatigues after 2-3 bites Pharyngeal Phase Source: MBSIMP (TM) (C) Bolus Specific Scoring Grid Delayed Initiation of Pharyngeal Swallow No: premature spillage due to weak linguavelar seal Soft Palate Elevation WFL Tongue Base Strength/Range of Motion Moderate Impairment Residue Along the Tongue Base Yes Clearance of Residue Along Tongue Base Moderate Impairment Laryngeal Elevation Minimal Impairment Anterior Hyoid Movement Minimal Impairment Epiglottic Range of Motion Moderate Impairment Vallecular Residue Yes Clearance of Vallecular Residue Moderate Impairment Laryngeal Vestibular Closure Moderate Impairment Posterior Pharyngeal Wall Residue Yes Clearance of Posterior Pharyngeal Wall Moderate Impairment Residue Upper Esophageal Sphincter Opening WFL Residue in the Pyriform Sinuses Yes Clearance of Residue in the Pyriform Moderate Impairment Sinuses Esophageal Clearance Upright Position Minimal Impairment Pharyngoesophageal Backflow Observed No Additional Pharyngeal Phase Observations As the 10 swallows progressed, the pt's ability to protect his airway diminished. His epiglottic inversion was good at the start of the MBSS and flattened by the end of the MBSS allowing overflow into the laryngeal vestibule. Chin tucks were effective in preventing aspiration and reducing the amount of laryngotrachelal penetration that occurred. Double swallows were effective in clearing residue initially; however, there was less ability to clear residue as the assessment continued, thereby increasing risk of aspirating the residue as it is swallowed. THE PT'S ASPIRATION WAS SILENT/WITHOUT COUGH A/P View Clinical Impressions Dysphagia Type Oropharyngeal dysphagia secondary to fatigue Findings The pt presents with elevated aspiration risk secondary to overall fatigue and weakness. When the pt is sitting without a chin tuck, he aspirated with no response. He was cued to cough; but his cough was extremely weak and non-productive. With a chin tuck, and double swallows, the pt was able to tolerate thin liquids in [place] AMOUNTS ONLY. Larger amounts of liquids increased risk for aspiration. The pt also was able to masticate and safely swallow a cookie/regular texture without aspiration in a chin tuck position. Mixed texture foods like peaches in juice were resulted in laryngotracheal penetration but no aspiration. Rehabilitation Potential Fair Patient Appropriate for Therapy Yes Recommendations Diet Liquids Order Thin Diet Order Mechanical Soft Medication Recommendation As Tolerated Aspiration Precautions Recommended Precautions Upright at 90 Degrees Chin Tuck Double Swallow Supraglottic Swallow Additional Precautions thin liquids by TEASPOON SIZED AMOUNTS ONLY Treatment Plan Therapy Recommendations Inpatient Speech Therapy Lingual Exercises Base of Tongue Exercises Compensatory Strategy Education Additional Recommended Referrals Chest x-ray requested to r/o aspiration pneumonia Compensatory Strategies Recommendations Sitting Upright (90 deg) Chin Tuck Double Swallow Supraglottic Swallow No Straw Small Bites and Sips Short Term Goals The pt will safely tolerate the least-restrictive diet without s/sx aspiration as per lung monitoring as pt is a SILENT ASPIRATION RISK The pt will perform lingual/ tongue base exercises to improve linguavelar strength for swallowing Roofing Tile Sorter Goals Th pt will be able to safely tolerate a reguale texture and thin liquids without risk of aspiration. 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 Care Facility
--- NOTE | 2018-04-13 16:04 | ST.SWALLOW ---
Visit Care Team Role Provider Type Selvin Finney DO Other Providers Physician Specialty: Psychiatry Address: [address] [place], [address] Email: [email or web address] Peguero MD Other Providers Physician Specialty: Oncology Address: [address] [place] [address], [id number] Email: Family Provider Specialty: Address: Phone: Fax: Email: Kapil Grace DO Emergency Provider Physician Specialty: Emergency Medicine Address: [address] [place] [address], [id number] Email: [email or web address] Alka Martinez MD Admit Provider Physician Attending Provider Primary Care Provider Specialty: Internal Medicine Address: [address] [place] [address], [address] Email: Modified Barium Swallow Study AOC OPERATIONS INTELLIGENCE OFFICER Modified Barium Swallow Study Start: 04/07/18 11:32 Freq: Status: Active Protocol: Document 04/07/18 11:32 MRM (Rec: 04/07/18 11:57 MRM [id number]) Modified Barium Swallow Study Total Time Visit Start Time 08:30 Visit Stop Time 09:30 Total Visit Minutes 60 Visit Information Insurance Information [place] Referral Referring Physician Dr Martinez Reason for Referral Aspiration Setting Setting Acute Care Patient Information Identification Type Name Patient History Pt was observed by nursing to be having difficulty with swallowing thin liquids during his meals. Order received for swllowing assesment on 11/10. Swallowing evaluation to r/o aspiration. PT has been in the hospital for several days. He was intubated following his surgrery for five days. Was previously on a full liquid diet, but placed on nectar thick liquids after swallow evaluation on 04/04/18. Patient's lungs have continued to decline, as has his overall strength. Suction has been required at bedside, and he has been suctioning himself when needed. Significant secretions have been expelled. Patient continued to exhibit overall decline on 04/06/18 and an MBS was requested to evaluate the nature of his swallowing. Chest xray (04/03/18) indicated : Lungs and pleura: No acute airspace opacities. Small right and trace left basal pleural effusions are present, causing bilateral lower lobe compressive atelectasis. NEW CXR (04/06/18) Indicated: Patchy opacities in lung bases bilaterally compatible with aspiration, atelectasis or pneumonia. Trace bilateral pleural effusions. PMH: Sepsis, unspecified organism ( 03/22/18) Hypocalcemia (03/22/18) Hypokalemia (03/22/18) Chronic pulmonary edema (03/22) Acute postprocedural respiratory failure (03/22/18) Ulcerative colitis, unspecified, without complications (03/22/18) Perforation of intestine ( nontraumatic) (03/22/18) Severe sepsis with septic shock (03/22/18) Subjective Observations Patient arrived to the MBS suite via wheelchair. No complaints of pain pre/post. He was very weak and fatiuged quickly. O2 support and suction were set up prior to the study. He required suction immediately after his first swallow attempt. Patient Positioning Position View Lateral Imaging Lateral View Textures Administered Trials Presented Thin Liquid via Cup [place] Liquid via Cup Dysphagia Blenderized Textures Dysphagia Mechanical Textures Dysphagia Advanced Textures Regular Textures Oral Phase Source: MBSIMP (TM) (C) Bolus Specific Scoring Grid Lip Closure No Impairment (WNL) Tongue Control During Bolus Hold WFL Bolus Prep/Mastication Moderate Impairment Bolus Transport/Lingual Motion No Impairment (WNL) A/P Lingual Propulsion Delay No Oral Residue Mild Impairment Residue Clearing Mild Impairment Nasal Regurgitation No Pharyngeal Phase Source: MBSIMP (TM) (C) Bolus Specific Scoring Grid Delayed Initiation of Pharyngeal Swallow No Soft Palate Elevation No Impairment (WNL) Tongue Base Strength/Range of Motion Mild Impairment Residue Along the Tongue Base Yes Clearance of Residue Along Tongue Base Moderate Impairment Laryngeal Elevation Moderate Impairment Anterior Hyoid Movement Moderate Impairment Epiglottic Range of Motion Moderate Impairment Vallecular Residue Yes: Observed with all trials Clearance of Vallecular Residue Minimal Impairment Laryngeal Vestibular Closure Moderate Impairment Pharyngeal Stripping Wave Minimal Impairment Pharyngeal Contraction Minimal Impairment Posterior Pharyngeal Wall Residue No Clearance of Posterior Pharyngeal Wall WFL Residue Upper Esophageal Sphincter Opening WFL Residue in the Pyriform Sinuses No: Trace amount observed with liquids and puree applesauce Clearance of Residue in the Pyriform Minimal Impairment Sinuses Esophageal Clearance Upright Position WFL Pharyngoesophageal Backflow Observed No A/P View Esophageal Observations Esophageal Function No significant esophageal observations. Please refer to Radiology report from Dr Ortega. Clinical Impressions Dysphagia Type Moderate-severe oropharyngeal dyspahgia Findings Moderate-severe oropharyngeal dysphagia secondary to severe atrophy and fatigue causing decline in musculature function. Patient's primary deficit is significantly reduced hyolarynegal eleavation and excursion, which inhibits adequate laryngeal elevation for airway protection. In addition to this, the patient also exhibits reduced tongue base strength, decreasing epiglottic inversion, which also creates reduced airway closure required for laryngeal seal to prevent aspiration. Derrick aspiration with immediate cough response was obsereved x1 with thin liquids via cup due to inadequate laryngeal closure from decreased laryngeal eleavation and decreased epiglottic inversion. With nectar thick liquids via cup, the patient was obsereved to penetrate silently into laryngeal vestibule with nectar thick liquids without any compensatory strategies. With throat clear and extra swallows, he was able to retract a signficant amount of the residue from this penetration, however, after multiple swallows, he did aspirate a trace amount of this residue. With a chin tuck , however, he was successful in swallowing nectar thick liquids without penetration. No penetration observed with puree applesauce, soft fruit or a regular cracker. He did exhibit moderate-severe vallecular residue with solids . With additional swallows, however, he was able to successfully clear this residue without penetration. In trials of solid textures, patient was observed to fatigue quickly during mastication with limited lingual movement and reduced mandibular motion. No premature spillage was observed, however. Due to this consistent decline in strength, soft solids are recommended at this time. RECOMMEND: [place] thick liquids with dysphagia mechanical textures. Please add moisture to meals and provide 1:1 supervision to monitor patient for fatigue. Frequent rest periods are highly recommended in order to maintain safety. Patient's greatest barrier to improvement in his gross overall decline in status with significantly reduced strength. AOC OPERATIONS INTELLIGENCE OFFICER will follow up for education and strengthening exercises. Rehabilitation Potential Excellent Patient Appropriate for Therapy Yes Recommendations Diet Liquids Order [place] Diet Order Dysphagia Mechanical Medication Recommendation As Tolerated Whole in Carrier Additional Dietary Needs Chopped Food Single Sips No Straws 1:1 Supervision Encourage to Self-Feed Reminders to Use Strategies Aspiration Precautions Recommended Precautions Upright at 90 Degrees Alternate Liquids/Solids Frequent Rest Periods Small Bites/Sips Chin Tuck Effortful Swallow Double Swallow Lingual Sweep Supraglottic Swallow Aron Maneuvor Treatment Plan Therapy Recommendations Inpatient Speech Therapy Oral Motor Exercises Lingual Exercises Base of Tongue Exercises Compensatory Strategy Education Recommended Referrals Dietary Consult Compensatory Strategies Recommendations Sitting Upright (90 deg) Chin Tuck Double Swallow Supraglottic Swallow [place]elsonn Maneuver Small Bites and Sips Alternate Liquids/Solids Additional Compensatory Strategies Frequent rest periods; Recommended laryngeal strengthening exercises Short Term Goals Patient will tolerate nectar thick liquids and dysphagia mechanical textures without overt s/s of aspiration. Patient will implement chin tuck/effortful swallow/double swallow with all liquids intake to prevent penetration and/or aspiration. Patient will perform laryngeal strengthening exercises to improve overall laryngeal function to improve swallow ability. Placement Recommendation After Discharge [facility] Facility A[facility] OPERATIONS INTELLIGENCE OFFICER Modified Barium Swallow Study Start: 04/13/18 12:16 Freq: Status: Active Protocol: Document 04/13/18 14:57 LNK (Rec: 04/13/18 15:57 LNK [id number]) Modified Barium Swallow Study Total Time Visit Start Time 13:00 Visit Stop Time 14:00 Total Visit Minutes 60 Setting Setting Outpatient Care Patient Information Identification Type Name ID Wristband Patient Positioning Position View Lateral Imaging Lateral View Textures Administered Trials Presented Thin Liquid via Spoon Thin Liquid via Cup [place] Liquid via Spoon [place] Liquid via Cup Dysphagia Advanced Textures Regular Textures Oral Phase Source: MBSIMP (TM) (C) Bolus Specific Scoring Grid Lip Closure No Impairment (WNL) Tongue Control During Bolus Hold Mild Impairment Bolus Prep/Mastication Mild Impairment Bolus Transport/Lingual Motion Minimal Impairment A/P Lingual Propulsion Delay No Oral Residue No Impairment (WNL) Residue Clearing No Impairment (WNL) Nasal Regurgitation No Additional Oral Phase Observations Chewing quickly fatigues after 2-3 bites Pharyngeal Phase Source: MBSIMP (TM) (C) Bolus Specific Scoring Grid Delayed Initiation of Pharyngeal Swallow No: premature spillage due to weak linguavelar seal Soft Palate Elevation WFL Tongue Base Strength/Range of Motion Moderate Impairment Residue Along the Tongue Base Yes Clearance of Residue Along Tongue Base Moderate Impairment Laryngeal Elevation Minimal Impairment Anterior Hyoid Movement Minimal Impairment Epiglottic Range of Motion Moderate Impairment Vallecular Residue Yes Clearance of Vallecular Residue Moderate Impairment Laryngeal Vestibular Closure Moderate Impairment Posterior Pharyngeal Wall Residue Yes Clearance of Posterior Pharyngeal Wall Moderate Impairment Residue Upper Esophageal Sphincter Opening WFL Residue in the Pyriform Sinuses Yes Clearance of Residue in the Pyriform Moderate Impairment Sinuses Esophageal Clearance Upright Position Minimal Impairment Pharyngoesophageal Backflow Observed No Additional Pharyngeal Phase Observations As the 10 swallows progressed, the pt's ability to protect his airway diminished. His epiglottic inversion was good at the start of the MBSS and flattened by the end of the MBSS allowing overflow into the laryngeal vestibule. Chin tucks were effective in preventing aspiration and reducing the amount of laryngotrachelal penetration that occurred. Double swallows were effective in clearing residue initially; however, there was less ability to clear residue as the assessment continued, thereby increasing risk of aspirating the residue as it is swallowed. THE PT'S ASPIRATION WAS SILENT/WITHOUT COUGH A/P View Clinical Impressions Dysphagia Type Oropharyngeal dysphagia secondary to fatigue Findings The pt presents with elevated aspiration risk secondary to overall fatigue and weakness. When the pt is sitting without a chin tuck, he aspirated with no response. He was cued to cough; but his cough was extremely weak and non-productive. With a chin tuck, and double swallows, the pt was able to tolerate thin liquids in [place] AMOUNTS ONLY. Larger amounts of liquids increased risk for aspiration. The pt also was able to masticate and safely swallow a cookie/regular texture without aspiration in a chin tuck position. Mixed texture foods like peaches in juice were resulted in laryngotracheal penetration sbut no aspiration. Rehabilitation Potential Fair Patient Appropriate for Therapy Yes Recommendations Diet Liquids Order Thin Diet Order Mechanical Soft Medication Recommendation As Tolerated Aspiration Precautions Recommended Precautions Upright at 90 Degrees Chin Tuck Double Swallow Supraglottic Swallow Additional Precautions thin liquids by [place] SIZED AMOUNTS ONLY Treatment Plan Therapy Recommendations Inpatient Speech Therapy Lingual Exercises Base of Tongue Exercises Compensatory Strategy Education Additional Recommended Referrals Chest x-ray requested to r/o aspiration pneumonia Compensatory Strategies Recommendations Sitting Upright (90 deg) Chin Tuck Double Swallow Supraglottic Swallow No Straw Small Bites and Sips Short Term Goals The pt will safely tolerate the least-trestrictive diet without s/sx aspiration as per lung monitoring as pt is a SILENT ASPIRATION RISK The pt will perform lingual/ tongue base exercises to improve linguavelar strength for swallowing Import Manager Goals Th pt will be able to safely tolerate a reguale texture and thin liquids without risk of aspiration. Placement Recommendation After Discharge [facility] Facility
--- NOTE | 2018-04-13 16:09 | CM.DPC ---
DCP: continued: Case again received and EMR for last several days reviewed. Put a call into [facility] this morning about 0830. Savana's colleague Mustapha confirmed that the [employer] auth process was continuing and typcially takes some time. Spoke at length with Chiquita this afternoon and went over last notes from Dr. Dawkins and Dr. Leong. MBS was again done this afternoon and went over the POST COMMANDER notes re these results. Note that pt now expressing to the providers that he is looking forward to the transition to LTAC setting and Chiquita is supportive of this decision (although continues to say that she knows she could care for him well at home). Dr. Finney's psychiatric consult is noted. Updated clinical from last couple days is faxed in now to [facility] to help in the ongoing auth processs. Chiquita states she and pt have gone over some POA paperwork and would like notary assist with same. Plan to check in with pt tomorrow to review this and obtain notary assist from Med Record dept is all looks ready for that step. P: [facility] pending auth. Continue to follow Case discussed in Interdisc team meeting today.
--- NOTE | 2018-04-13 16:11 | ST.SWALLOW ---
Visit Care Team Role Provider Type Selvin Finney DO Other Providers Physician Specialty: Psychiatry Address: [address] [place], [address] Email: [email or web address] Peguero MD Other Providers Physician Specialty: Oncology Address: [address] [place] [address], [phone] Email: Family Provider Specialty: Address: Phone: Fax: Email: Kapil Grace DO Emergency Provider Physician Specialty: Emergency Medicine Address: [address] [place] [address], [id number] Email: [email or web address] Alka Martinez MD Admit Provider Physician Attending Provider Primary Care Provider Specialty: Internal Medicine Address: [address] [place] [address], [id number] Email: Modified Barium Swallow Study SYSTEMS OPERATOR Modified Barium Swallow Study Start: 04/07/18 11:32 Freq: Status: Active Protocol: Document 04/07/18 11:32 MRM (Rec: 04/07/18 11:57 MRM [id number]) Modified Barium Swallow Study Total Time Visit Start Time 08:30 Visit Stop Time 09:30 Total Visit Minutes 60 Visit Information Insurance Information [facility] Referral Referring Physician Dr Martinez Reason for Referral Aspiration Setting Setting Acute Care Patient Information Identification Type Name Patient History Pt was observed by nursing to be having difficulty with swallowing thin liquids during his meals. Order received for swllowing assesment on 11/10. Swallowing evaluation to r/o aspiration. PT has been in the hospital for several days. He was intubated following his surgrery for five days. Was previously on a full liquid diet, but placed on nectar thick liquids after swallow evaluation on 04/04/18. Patient's lungs have continued to decline, as has his overall strength. Suction has been required at bedside, and he has been suctioning himself when needed. Significant secretions have been expelled. Patient continued to exhibit overall decline on 04/06/18 and an MBS was requested to evaluate the nature of his swallowing. Chest xray (04/03/18) indicated : Lungs and pleura: No acute airspace opacities. Small right and trace left basal pleural effusions are present, causing bilateral lower lobe compressive atelectasis. NEW CXR (04/06/18) Indicated: Patchy opacities in lung bases bilaterally compatible with aspiration, atelectasis or pneumonia. Trace bilateral pleural effusions. PMH: Sepsis, unspecified organism ( 03/22/18) Hypocalcemia (03/22/18) Hypokalemia (03/22/18) Chronic pulmonary edema (03/22) Acute postprocedural respiratory failure (03/22/18) Ulcerative colitis, unspecified, without complications (03/22/18) Perforation of intestine ( nontraumatic) (03/22/18) Severe sepsis with septic shock (03/22/18) Subjective Observations Patient arrived to the MBS suite via wheelchair. No complaints of pain pre/post. He was very weak and fatiuged quickly. O2 support and suction were set up prior to the study. He required suction immediately after his first swallow attempt. Patient Positioning Position View Lateral Imaging Lateral View Textures Administered Trials Presented Thin Liquid via Cup [place] Liquid via Cup Dysphagia Blenderized Textures Dysphagia Mechanical Textures Dysphagia Advanced Textures Regular Textures Oral Phase Source: MBSIMP (TM) (C) Bolus Specific Scoring Grid Lip Closure No Impairment (WNL) Tongue Control During Bolus Hold WFL Bolus Prep/Mastication Moderate Impairment Bolus Transport/Lingual Motion No Impairment (WNL) A/P Lingual Propulsion Delay No Oral Residue Mild Impairment Residue Clearing Mild Impairment Nasal Regurgitation No Pharyngeal Phase Source: MBSIMP (TM) (C) Bolus Specific Scoring Grid Delayed Initiation of Pharyngeal Swallow No Soft Palate Elevation No Impairment (WNL) Tongue Base Strength/Range of Motion Mild Impairment Residue Along the Tongue Base Yes Clearance of Residue Along Tongue Base Moderate Impairment Laryngeal Elevation Moderate Impairment Anterior Hyoid Movement Moderate Impairment Epiglottic Range of Motion Moderate Impairment Vallecular Residue Yes: Observed with all trials Clearance of Vallecular Residue Minimal Impairment Laryngeal Vestibular Closure Moderate Impairment Pharyngeal Stripping Wave Minimal Impairment Pharyngeal Contraction Minimal Impairment Posterior Pharyngeal Wall Residue No Clearance of Posterior Pharyngeal Wall WFL Residue Upper Esophageal Sphincter Opening WFL Residue in the Pyriform Sinuses No: Trace amount observed with liquids and puree applesauce Clearance of Residue in the Pyriform Minimal Impairment Sinuses Esophageal Clearance Upright Position WFL Pharyngoesophageal Backflow Observed No A/P View Esophageal Observations Esophageal Function No significant esophageal observations. Please refer to Radiology report from Dr Ortega. Clinical Impressions Dysphagia Type Moderate-severe oropharyngeal dyspahgia Findings Moderate-severe oropharyngeal dysphagia secondary to severe atrophy and fatigue causing decline in musculature function. Patient's primary deficit is significantly reduced hyolarynegal eleavation and excursion, which inhibits adequate laryngeal elevation for airway protection. In addition to this, the patient also exhibits reduced tongue base strength, decreasing epiglottic inversion, which also creates reduced airway closure required for laryngeal seal to prevent aspiration. Derrick aspiration with immediate cough response was obsereved x1 with thin liquids via cup due to inadequate laryngeal closure from decreased laryngeal eleavation and decreased epiglottic inversion. With nectar thick liquids via cup, the patient was obsereved to penetrate silently into laryngeal vestibule with nectar thick liquids without any compensatory strategies. With throat clear and extra swallows, he was able to retract a signficant amount of the residue from this penetration, however, after multiple swallows, he did aspirate a trace amount of this residue. With a chin tuck , however, he was successful in swallowing nectar thick liquids without penetration. No penetration observed with puree applesauce, soft fruit or a regular cracker. He did exhibit moderate-severe vallecular residue with solids . With additional swallows, however, he was able to successfully clear this residue without penetration. In trials of solid textures, patient was observed to fatigue quickly during mastication with limited lingual movement and reduced mandibular motion. No premature spillage was observed, however. Due to this consistent decline in strength, soft solids are recommended at this time. RECOMMEND: [place] thick liquids with dysphagia mechanical textures. Please add moisture to meals and provide 1:1 supervision to monitor patient for fatigue. Frequent rest periods are highly recommended in order to maintain safety. Patient's greatest barrier to improvement in his gross overall decline in status with significantly reduced strength. SYSTEMS OPERATOR will follow up for education and strengthening exercises. Rehabilitation Potential Excellent Patient Appropriate for Therapy Yes Recommendations Diet Liquids Order [place] Diet Order Dysphagia Mechanical Medication Recommendation As Tolerated Whole in Carrier Additional Dietary Needs Chopped Food Single Sips No Straws 1:1 Supervision Encourage to Self-Feed Reminders to Use Strategies Aspiration Precautions Recommended Precautions Upright at 90 Degrees Alternate Liquids/Solids Frequent Rest Periods Small Bites/Sips Chin Tuck Effortful Swallow Double Swallow Lingual Sweep Supraglottic Swallow Aron Maneuvor Treatment Plan Therapy Recommendations Inpatient Speech Therapy Oral Motor Exercises Lingual Exercises Base of Tongue Exercises Compensatory Strategy Education Recommended Referrals Dietary Consult Compensatory Strategies Recommendations Sitting Upright (90 deg) Chin Tuck Double Swallow Supraglottic Swallow [place]elsonn Maneuver Small Bites and Sips Alternate Liquids/Solids Additional Compensatory Strategies Frequent rest periods; Recommended laryngeal strengthening exercises Short Term Goals Patient will tolerate nectar thick liquids and dysphagia mechanical textures without overt s/s of aspiration. Patient will implement chin tuck/effortful swallow/double swallow with all liquids intake to prevent penetration and/or aspiration. Patient will perform laryngeal strengthening exercises to improve overall laryngeal function to improve swallow ability. Placement Recommendation After Discharge Carbonation Tester Care Facility SYSTEMS OPERATOR Modified Barium Swallow Study Start: 04/13/18 12:16 Freq: Status: Active Protocol: Document 04/13/18 14:57 LNK (Rec: 04/13/18 15:57 LNK [id number]) Modified Barium Swallow Study Total Time Visit Start Time 13:00 Visit Stop Time 14:00 Total Visit Minutes 60 Setting Setting Outpatient Care Patient Information Identification Type Name ID Wristband Patient Positioning Position View Lateral Imaging Lateral View Textures Administered Trials Presented Thin Liquid via Spoon Thin Liquid via Cup [place] Liquid via Spoon [place] Liquid via Cup Dysphagia Advanced Textures Regular Textures Oral Phase Source: MBSIMP (TM) (C) Bolus Specific Scoring Grid Lip Closure No Impairment (WNL) Tongue Control During Bolus Hold Mild Impairment Bolus Prep/Mastication Mild Impairment Bolus Transport/Lingual Motion Minimal Impairment A/P Lingual Propulsion Delay No Oral Residue No Impairment (WNL) Residue Clearing No Impairment (WNL) Nasal Regurgitation No Additional Oral Phase Observations Chewing quickly fatigues after 2-3 bites Pharyngeal Phase Source: MBSIMP (TM) (C) Bolus Specific Scoring Grid Delayed Initiation of Pharyngeal Swallow No: premature spillage due to weak linguavelar seal Soft Palate Elevation WFL Tongue Base Strength/Range of Motion Moderate Impairment Residue Along the Tongue Base Yes Clearance of Residue Along Tongue Base Moderate Impairment Laryngeal Elevation Minimal Impairment Anterior Hyoid Movement Minimal Impairment Epiglottic Range of Motion Moderate Impairment Vallecular Residue Yes Clearance of Vallecular Residue Moderate Impairment Laryngeal Vestibular Closure Moderate Impairment Posterior Pharyngeal Wall Residue Yes Clearance of Posterior Pharyngeal Wall Moderate Impairment Residue Upper Esophageal Sphincter Opening WFL Residue in the Pyriform Sinuses Yes Clearance of Residue in the Pyriform Moderate Impairment Sinuses Esophageal Clearance Upright Position Minimal Impairment Pharyngoesophageal Backflow Observed No Additional Pharyngeal Phase Observations As the 10 swallows progressed, the pt's ability to protect his airway diminished. His epiglottic inversion was good at the start of the MBSS and flattened by the end of the MBSS allowing overflow into the laryngeal vestibule. Chin tucks were effective in preventing aspiration and reducing the amount of laryngotrachelal penetration that occurred. Double swallows were effective in clearing residue initially; however, there was less ability to clear residue as the assessment continued, thereby increasing risk of aspirating the residue as it is swallowed. THE PT'S ASPIRATION WAS SILENT/WITHOUT COUGH A/P View Clinical Impressions Dysphagia Type Oropharyngeal dysphagia secondary to fatigue Findings The pt presents with elevated aspiration risk secondary to overall fatigue and weakness. When the pt is sitting without a chin tuck, he aspirated with no response. He was cued to cough; but his cough was extremely weak and non-productive. With a chin tuck, and double swallows, the pt was able to tolerate thin liquids in TEASPOON AMOUNTS ONLY. Larger amounts of liquids increased risk for aspiration. The pt also was able to masticate and safely swallow a cookie/regular texture without aspiration in a chin tuck position. Mixed texture foods like peaches in juice were resulted in laryngotracheal penetration sbut no aspiration. Rehabilitation Potential Fair Patient Appropriate for Therapy Yes Recommendations Diet Liquids Order Thin Diet Order Mechanical Soft Medication Recommendation As Tolerated Aspiration Precautions Recommended Precautions Upright at 90 Degrees Chin Tuck Double Swallow Supraglottic Swallow Additional Precautions thin liquids by TEASPOON SIZED AMOUNTS ONLY Treatment Plan Therapy Recommendations Inpatient Speech Therapy Lingual Exercises Base of Tongue Exercises Compensatory Strategy Education Additional Recommended Referrals Chest x-ray requested to r/o aspiration pneumonia Compensatory Strategies Recommendations Sitting Upright (90 deg) Chin Tuck Double Swallow Supraglottic Swallow No Straw Small Bites and Sips Short Term Goals The pt will safely tolerate the least-trestrictive diet without s/sx aspiration as per lung monitoring as pt is a SILENT ASPIRATION RISK The pt will perform lingual/ tongue base exercises to improve linguavelar strength for swallowing Carbonation Tester Goals Th pt will be able to safely tolerate a reguale texture and thin liquids without risk of aspiration. Placement Recommendation After Discharge Carbonation Tester Care Facility Please Sign and Return: I have reviewed this Plan of Care and certify that the skilled therapy services above are required to meet the patient???s needs. Physician Signature Date Printed Name and Credentials Clinical Instructor Signature Printed Name and Credentials
[2018-04-13 16:45] VITALS: BP 115/75; PULSE 111; RESP 18; TEMP 36.7; O2SAT 93
[2018-04-13] MEDS: WARFARIN 5 MG TABLET PO (16:54)
--- NOTE | 2018-04-13 17:33 | PC.NURSE ---
Ostomy Nurse Note Collin awake in bed. His voice is much clearer and he looks more interactive. He was eager to change his ostomy appliance with me today. I told him I have read that he will most likely be going to [place] for rehab and he said that was what he has also heard. I emptied his pouch 150cc of brown liquid stool. Collin prepared the new appliance by applying the adaptor to the wafer and got the wafer back ready for applying. He then used adhesive removers and began to remove his appliance. He cleaned around his stoma, dried the juliane-stomal skin and re-applied the new appliance. He did a great job and I could see that he was pleased with himself. We reviewed diet to prevent food blockage and he said he will continue to read the materials I left for him. His stoma is not edematous. It measures 22mm. It is pale pink, moist and the juliane-stomal skin is intact. The sutures are dissolving. He was placed back into a [facility] moldalbe 45mm flat wafer with an adaptor and a clear non-filtered pouch. Collin understands that he needs to empty the pouch when it is 1/2 full and that he needs to change the whole appliance every three days. I placed four wafers and pouches in his room in the ostomy basin for his discharge. I will not follow up with Collin during this hospital stay unless he has difficulties. I will follow up with Collin at [facility] upon discharge. Collin's midline dressing was intact with some serous drainage on the outside of the dressing. I told him that Dr. Dawkins recommends continued negative pressure dressing for the midline incision and that I feel that that would also be beneficial to wound healing.
--- NOTE | 2018-04-13 18:07 | PM.PN.1 ---
Subjective Interval history: No new complaints today. He does report that he was unable to swallow today and says even liquids a problem for him. He seems distressed by that. He has had a downstairs for modified barium swallow as I am talking to him currently. He denies any abdominal pain. Still not working very well with physical therapy. Exam Vital Signs (past 8 hours): Vital Signs - 8 hr 04/13/18 10:41 04/13/18 16:45 Temperature 98.0 F Pulse Rate 122 H 111 H Respiratory Rate 20 18 Blood Pressure 125/86 H 115/75 Pulse Oximetry 100 93 Pulse Oximetry 93 Fraction of Inspired Oxygen 30 Oxygen Delivery Method Room Air Oxygen Flow Rate 0 Narrative Exam Narrative: Very ill-appearing gentleman in some emotional distress. Lungs: Is essentially clear bilaterally Heart: Regular rate and rhythm Abdomen: Soft, granulating, active bowel sounds. Extremities: Warm and well perfused Objective Labs Result Diagrams: 04/13/18 05:35 04/13/18 05:35 Labs: Laboratory Results - last 24 hr 04/13/18 04/13/18 04/13/18 05:35 05:35 05:35 WBC 42.7 H* RBC 3.52 L Hgb 10.1 L Hct 30.4 L MCV 86.6 MCH 28.6 MCHC 33.1 RDW 17.1 H Plt Count 1556 H* Neut % (Auto) Not Reportable Lymph % (Auto) Not Reportable [place] % (Auto) Not Reportable Eos % (Auto) Not Reportable Baso % (Auto) Not Reportable Total Counted 100 Seg Neutrophils % 66.0 Band Neutrophils % 6.0 Lymphocytes % (Manual) 16.0 L Atypical Lymphs % 1.0 H Monocytes % (Manual) 5.0 Eosinophils % (Manual) 3.0 Metamyelocytes % 2.0 H Myelocytes % 1.0 H Neutrophils # (Manual) 00331 H RBC Morphology Not Reportable Anisocytosis 2+ H Target Cells 1+ H PT 24.1 H INR 2.2 H Sodium 134 L Potassium 4.3 Chloride 101.0 Carbon Dioxide 20.0 L BUN 16.0 Creatinine 0.30 L Estimated GFR > 60.0 BUN/Creatinine Ratio 53.3 H Glucose 113 H Uric Acid Calcium 7.9 L Total Bilirubin 0.2 AST 58 ALT 45 Alkaline Phosphatase 288 H Lactate Dehydrogenase Total Protein 7.3 Albumin 2.8 L Globulin 4.5 H Albumin/Globulin Ratio 0.6 L Prealbumin 21.8 04/13/18 14:10 WBC RBC Hgb Hct MCV MCH MCHC RDW Plt Count Neut % (Auto) Lymph % (Auto) [place] % (Auto) Eos % (Auto) Baso % (Auto) Total Counted Seg Neutrophils % Band Neutrophils % Lymphocytes % (Manual) Atypical Lymphs % Monocytes % (Manual) Eosinophils % (Manual) Metamyelocytes % Myelocytes % Neutrophils # (Manual) RBC Morphology Anisocytosis Target Cells PT INR Sodium Potassium Chloride Carbon Dioxide BUN Creatinine Estimated GFR BUN/Creatinine Ratio Glucose Uric Acid 1.9 L Calcium Total Bilirubin AST ALT Alkaline Phosphatase Lactate Dehydrogenase 607 Total Protein Albumin Globulin Albumin/Globulin Ratio Prealbumin Assessment & Plan Plan: Plan: Cachectic gentleman with a long history of ulcerative colitis. I am very concerned about his white count continued to climb as well as his significant thrombocytosis. He is on a full-dose aspirin as well as Coumadin. I have contacted Dr. Cruz Peguero he will be in to see him tomorrow. It seems likely that he may have a myeloproliferative disorder. I have ordered an LDH and uric acid level. Additionally, if he does not do well with the modified barium swallow today, I think a PEG tube might be a better option for interim nutritional management while he undergoes swelling rehabilitation. As he was somewhat down today, I did not address replacement of the wound VAC. We can bring it up again tomorrow. Quality VTE Deep Vein Thrombosis/Pulmonary Embolism Present on Admission: Yes
[2018-04-13] MEDS: FAT EMULSIONS 50 GM/250 ML EMULSION IV (18:52)
[2018-04-13] MEDS: [UNRECOGNIZED DRUG - REMARK] 67.319 ML IV (18:53)
[2018-04-14 00:03] VITALS: BP 115/73; PULSE 107; RESP 16; TEMP 36.9; O2SAT 99
[2018-04-14] MEDS: LORazepam 2 MG/ML SYRINGE 1 MG IV (04:37)
[2018-04-14] MEDS: SODIUM CHLORIDE 0.9% FLUSH 10 ML IV ×2 (04:38→09:31)
--- NOTE | 2018-04-14 04:54 | PC.NURSE ---
0445 Pt requesting something to assist with rest/sleep. Medicated with prn Ativan. Dneies pain and nausea.
[2018-04-14] MEDS: PANTOPRAZOLE 40 MG TABLET PO (06:27)
[2018-04-14 08:00] VITALS: BP 120/68; PULSE 94; RESP 18; TEMP 36.8; O2SAT 100
[2018-04-14] MEDS: ARIPiprazole 10 MG TABLET 5 MG PO (09:30)
[2018-04-14] MEDS: DRONABINOL 2.5 MG CAPSULE PO ×3 (09:30→21:24)
[2018-04-14] MEDS: ASPIRIN EC 325 MG TABLET PO (09:30)
[2018-04-14] MEDS: SERTRALINE 50 MG TABLET 100 MG PO (09:31)
[2018-04-14] MEDS: MULTIVIT,CALC,MINS/IRON/FOLIC 1 TABLET 1 TAB PO (09:31)
[2018-04-14] MEDS: MEGESTROL 20 MG TABLET 40 MG PO ×2 (09:31→21:23)
[2018-04-14 10:08] VITALS: O2SAT 99
--- NOTE | 2018-04-14 11:01 | ST.SWALLOW ---
Visit Care Team Role Provider Type Selvin Finney DO Other Providers Physician Specialty: Psychiatry Address: [address] [place], [address] Email: [email or web address] Cruz Peguero MD Other Providers Physician Specialty: Oncology Address: [address] [place] [address], [id number] Email: Family Provider Specialty: Address: Phone: Fax: Email: Kapil Grace DO Emergency Provider Physician Specialty: Emergency Medicine Address: [address] [place] [address], [id number] Email: [email or web address] Alka Martinez MD Admit Provider Physician Attending Provider Primary Care Provider Specialty: Internal Medicine Address: [address] [place] [address], [phone] Email: Modified Barium Swallow Study 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 Order received for swllowing assesment on 11/10. Swallowing evaluation to r/o aspiration. PT has been in the hospital for several days. He was intubated following his surgrery for five days. Was previously on a full liquid diet, but placed on nectar thick liquids after swallow evaluation on 04/04/18. Patient's lungs have continued to decline, as has his overall strength. Suction has been required at bedside, and he has been suctioning himself when needed. Significant secretions have been expelled. Patient continued to exhibit overall decline on 04/06/18 and an MBS was requested to evaluate the nature of his swallowing. Chest xray (04/03/18) indicated : Lungs and pleura: No acute airspace opacities. Small right and trace left basal pleural effusions are present, causing bilateral lower lobe compressive atelectasis. NEW CXR (04/06/18) Indicated: Patchy opacities in lung bases bilaterally compatible with aspiration, atelectasis or pneumonia. Trace bilateral pleural effusions. PMH: Sepsis, unspecified organism ( 03/22/18) Hypocalcemia (03/22/18) Hypokalemia (03/22/18) Chronic pulmonary edema (03/22) Acute postprocedural respiratory failure (03/22/18) Ulcerative colitis, unspecified, without complications (03/22/18) Perforation of intestine ( nontraumatic) (03/22/18) Severe sepsis with septic shock (03/22/18) Subjective Observations Patient arrived to the MBS suite via wheelchair. No complaints of pain pre/post. He was very weak and fatiuged quickly. O2 support and suction were set up prior to the study. He required suction immediately after his first swallow attempt. Patient Positioning Position View Lateral Imaging Lateral View Textures Administered Trials Presented Thin Liquid via Cup Ronceverte Liquid via Cup Dysphagia Blenderized Textures Dysphagia Mechanical Textures Dysphagia Advanced Textures Regular Textures Oral Phase Source: MBSIMP (TM) (C) Bolus Specific Scoring Grid Lip Closure No Impairment (WNL) Tongue Control During Bolus Hold WFL Bolus Prep/Mastication Moderate Impairment Bolus Transport/Lingual Motion No Impairment (WNL) A/P Lingual Propulsion Delay No Oral Residue Mild Impairment Residue Clearing Mild Impairment Nasal Regurgitation No Pharyngeal Phase Source: MBSIMP (TM) (C) Bolus Specific Scoring Grid Delayed Initiation of Pharyngeal Swallow No Soft Palate Elevation No Impairment (WNL) Tongue Base Strength/Range of Motion Mild Impairment Residue Along the Tongue Base Yes Clearance of Residue Along Tongue Base Moderate Impairment Laryngeal Elevation Moderate Impairment Anterior Hyoid Movement Moderate Impairment Epiglottic Range of Motion Moderate Impairment Vallecular Residue Yes: Observed with all trials Clearance of Vallecular Residue Minimal Impairment Laryngeal Vestibular Closure Moderate Impairment Pharyngeal Stripping Wave Minimal Impairment Pharyngeal Contraction Minimal Impairment Posterior Pharyngeal Wall Residue No Clearance of Posterior Pharyngeal Wall WFL Residue Upper Esophageal Sphincter Opening WFL Residue in the Pyriform Sinuses No: Trace amount observed with liquids and puree applesauce Clearance of Residue in the Pyriform Minimal Impairment Sinuses Esophageal Clearance Upright Position WFL Pharyngoesophageal Backflow Observed No A/P View Esophageal Observations Esophageal Function No significant esophageal observations. Please refer to Radiology report from Dr Ortega. Clinical Impressions Dysphagia Type Moderate-severe oropharyngeal dyspahgia Findings Moderate-severe oropharyngeal dysphagia secondary to severe atrophy and fatigue causing decline in musculature function. Patient's primary deficit is significantly reduced hyolarynegal eleavation and excursion, which inhibits adequate laryngeal elevation for airway protection. In addition to this, the patient also exhibits reduced tongue base strength, decreasing epiglottic inversion, which also creates reduced airway closure required for laryngeal seal to prevent aspiration. Derrick aspiration with immediate cough response was obsereved x1 with thin liquids via cup due to inadequate laryngeal closure from decreased laryngeal eleavation and decreased epiglottic inversion. With nectar thick liquids via cup, the patient was obsereved to penetrate silently into laryngeal vestibule with nectar thick liquids without any compensatory strategies. With throat clear and extra swallows, he was able to retract a signficant amount of the residue from this penetration, however, after multiple swallows, he did aspirate a trace amount of this residue. With a chin tuck , however, he was successful in swallowing nectar thick liquids without penetration. No penetration observed with puree applesauce, soft fruit or a regular cracker. He did exhibit moderate-severe vallecular residue with solids . With additional swallows, however, he was able to successfully clear this residue without penetration. In trials of solid textures, patient was observed to fatigue quickly during mastication with limited lingual movement and reduced mandibular motion. No premature spillage was observed, however. Due to this consistent decline in strength, soft solids are recommended at this time. RECOMMEND: Ronceverte thick liquids with dysphagia mechanical textures. Please add moisture to meals and provide 1:1 supervision to monitor patient for fatigue. Frequent rest periods are highly recommended in order to maintain safety. Patient's greatest barrier to improvement in his gross overall decline in status with significantly reduced strength. MARRIAGE PERFORMER will follow up for education and strengthening exercises. Rehabilitation Potential Excellent Patient Appropriate for Therapy Yes Recommendations Diet Liquids Order Ronceverte Diet Order Dysphagia Mechanical Medication Recommendation As Tolerated Whole in Carrier Additional Dietary Needs Chopped Food Single Sips No Straws 1:1 Supervision Encourage to Self-Feed Reminders to Use Strategies Aspiration Precautions Recommended Precautions Upright at 90 Degrees Alternate Liquids/Solids Frequent Rest Periods Small Bites/Sips Chin Tuck Effortful Swallow Double Swallow Lingual Sweep Supraglottic Swallow Aron Maneuvor Treatment Plan Therapy Recommendations Inpatient Speech Therapy Oral Motor Exercises Lingual Exercises Base of Tongue Exercises Compensatory Strategy Education Recommended Referrals Dietary Consult Compensatory Strategies Recommendations Sitting Upright (90 deg) Chin Tuck Double Swallow Supraglottic Swallow Mendelsonn Maneuver Small Bites and Sips Alternate Liquids/Solids Additional Compensatory Strategies Frequent rest periods; Recommended laryngeal strengthening exercises Short Term Goals Patient will tolerate nectar thick liquids and dysphagia mechanical textures without overt s/s of aspiration. Patient will implement chin tuck/effortful swallow/double swallow with all liquids intake to prevent penetration and/or aspiration. Patient will perform laryngeal strengthening exercises to improve overall laryngeal function to improve swallow ability. Placement Recommendation After Discharge Wealth Management Manager Care Facility MARRIAGE PERFORMER Modified Barium Swallow Study Start: 04/13/18 12:16 Freq: Status: Active Protocol: Document 04/13/18 14:57 LNK (Rec: 04/13/18 15:57 LNK [id number]) Modified Barium Swallow Study Total Time Visit Start Time 13:00 Visit Stop Time 14:00 Total Visit Minutes 60 Setting Setting Outpatient Care Patient Information Identification Type Name ID Wristband Patient Positioning Position View Lateral Imaging Lateral View Textures Administered Trials Presented Thin Liquid via Spoon Thin Liquid via Cup Ronceverte Liquid via Spoon Ronceverte Liquid via Cup Dysphagia Advanced Textures Regular Textures Oral Phase Source: MBSIMP (TM) (C) Bolus Specific Scoring Grid Lip Closure No Impairment (WNL) Tongue Control During Bolus Hold Mild Impairment Bolus Prep/Mastication Mild Impairment Bolus Transport/Lingual Motion Minimal Impairment A/P Lingual Propulsion Delay No Oral Residue No Impairment (WNL) Residue Clearing No Impairment (WNL) Nasal Regurgitation No Additional Oral Phase Observations Chewing quickly fatigues after 2-3 bites Pharyngeal Phase Source: MBSIMP (TM) (C) Bolus Specific Scoring Grid Delayed Initiation of Pharyngeal Swallow No: premature spillage due to weak linguavelar seal Soft Palate Elevation WFL Tongue Base Strength/Range of Motion Moderate Impairment Residue Along the Tongue Base Yes Clearance of Residue Along Tongue Base Moderate Impairment Laryngeal Elevation Minimal Impairment Anterior Hyoid Movement Minimal Impairment Epiglottic Range of Motion Moderate Impairment Vallecular Residue Yes Clearance of Vallecular Residue Moderate Impairment Laryngeal Vestibular Closure Moderate Impairment Posterior Pharyngeal Wall Residue Yes Clearance of Posterior Pharyngeal Wall Moderate Impairment Residue Upper Esophageal Sphincter Opening WFL Residue in the Pyriform Sinuses Yes Clearance of Residue in the Pyriform Moderate Impairment Sinuses Esophageal Clearance Upright Position Minimal Impairment Pharyngoesophageal Backflow Observed No Additional Pharyngeal Phase Observations As the 10 swallows progressed, the pt's ability to protect his airway diminished. His epiglottic inversion was good at the start of the MBSS and flattened by the end of the MBSS allowing overflow into the laryngeal vestibule. Chin tucks were effective in preventing aspiration and reducing the amount of laryngotrachelal penetration that occurred. Double swallows were effective in clearing residue initially; however, there was less ability to clear residue as the assessment continued, thereby increasing risk of aspirating the residue as it is swallowed. THE PT'S ASPIRATION WAS SILENT/WITHOUT COUGH A/P View Clinical Impressions Dysphagia Type Oropharyngeal dysphagia secondary to fatigue Findings The pt presents with elevated aspiration risk secondary to overall fatigue and weakness. When the pt is sitting without a chin tuck, he aspirated with no response. He was cued to cough; but his cough was extremely weak and non-productive. With a chin tuck, and double swallows, the pt was able to tolerate thin liquids in TEASPOON AMOUNTS ONLY. Larger amounts of liquids increased risk for aspiration. The pt also was able to masticate and safely swallow a cookie/regular texture without aspiration in a chin tuck position. Mixed texture foods like peaches in juice were resulted in laryngotracheal penetration sbut no aspiration. Rehabilitation Potential Fair Patient Appropriate for Therapy Yes Recommendations Diet Liquids Order Thin Diet Order Mechanical Soft Medication Recommendation As Tolerated Aspiration Precautions Recommended Precautions Upright at 90 Degrees Chin Tuck Double Swallow Supraglottic Swallow Additional Precautions thin liquids by TEASPOON SIZED AMOUNTS ONLY Treatment Plan Therapy Recommendations Inpatient Speech Therapy Lingual Exercises Base of Tongue Exercises Compensatory Strategy Education Additional Recommended Referrals Chest x-ray requested to r/o aspiration pneumonia Compensatory Strategies Recommendations Sitting Upright (90 deg) Chin Tuck Double Swallow Supraglottic Swallow No Straw Small Bites and Sips Short Term Goals The pt will safely tolerate the least-trestrictive diet without s/sx aspiration as per lung monitoring as pt is a SILENT ASPIRATION RISK The pt will perform lingual/ tongue base exercises to improve linguavelar strength for swallowing Wealth Management Manager Goals Th pt will be able to safely tolerate a reguale texture and thin liquids without risk of aspiration. Placement Recommendation After Discharge Wealth Management Manager Care Facility Please Sign and Return: I have reviewed this Plan of Care and certify that the skilled therapy services above are required to meet the patient???s needs. Physician Signature Date Printed Name and Credentials Clinical Instructor Signature Printed Name and Credentials
--- NOTE | 2018-04-14 11:35 | OT.IP.TRT ---
Current Diagnoses Sepsis, unspecified organism (03/22/18) Hypocalcemia (03/22/18) Hypokalemia (03/22/18) Major depressive disorder, single episode, unspecified (03/22/18) Other pulmonary embolism without acute cor pulmonale (03/22/18) Chronic pulmonary edema (03/22/18) Acute postprocedural respiratory failure (03/22/18) Ulcerative colitis, unspecified, without complications (03/22/18) Perforation of intestine (nontraumatic) (03/22/18) Shortness of breath (03/22/18) Severe sepsis with septic shock (03/22/18) Occupational Therapy Treatment Note M2 OT-IP Current Condition Start: 04/07/18 15:30 Freq: Status: Active Protocol: Document 04/11/18 12:29 ADH (Rec: 04/11/18 12:43 ADH [email or web address]) Occupational Therapy Current Condition Current Condition Evaluation Date 04/07/18 Treatment Diagnosis decreased BUE/hand strength, endurance and self care skills Diagnosis Onset Date 03/22/18 Post Operative Precautions Abdominal Surgery Precautions Log Roll Lifting Restrictions Gait Belt above Incisional Area Other Precautions open abdominal incision with wet to dry dressings and new ileostomy M3 OT- IP Subjective and Pain Start: 04/07/18 15:30 Freq: Status: Active Protocol: Document 04/14/18 10:00 [facility] (Rec: 04/14/18 11:31 [facility] [id number]) OT- Subjective Occupational Therapy Visit Type Type Treatment Note Visit Start Time 10:30 Visit Stop Time 11:10 Total Visit Minutes 40 Notes Pt needing encouragement to participate in therapy. BP from 107-120 today. Occupational Therapy Visit Comments Patient Comments I am really tired today. OT Pain Assessment Pain When Pain Assessed At Rest Pain Present Pain Present Denied Pain M4 OT- IP ADL's Start: 04/07/18 15:30 Freq: Status: Active Protocol: Document 04/14/18 10:00 CCC (Rec: 04/14/18 11:34 [facility] [id number]) OT [id number] General Evaluation Self-Feeding Ability Standby Assistance Comments OT Self-Feeding Comments Pt trying to continuously drink from the cup of water versus with teaspoon and then noted coughing, therefore re- educated pt on LVN LPN precautions and use of teaspoon for thin liquids. Also able to talk to LVN LPN regarding pt not follow through with precautions. M5 OT- IP IADL's Start: 04/07/18 15:30 Freq: Status: Active Protocol: Document 04/07/18 15:26 PJM (Rec: 04/07/18 15:50 PJM [id number]) OT-Instrumental Activities of Daily Living Deficits IADL Deficits Identified Deficits Home Safety Awareness Awareness of Need for Assistance at Home Decreased Awareness Meal Preparation Meal Preparation Comments total assist on modified diet at present, DMA w/nectar thicks Vest Finisher Vest Finisher Comments Total assist Driving Driving Comments pt unable to drive at present M6 OT- IP Functional Cognition Start: 04/07/18 15:30 Freq: Status: Active Protocol: Document 04/14/18 10:00 [facility] (Rec: 04/14/18 11:31 [facility] [id number]) Cognitive Factors Limiting Selfcare Function Cognitive Ability Level of Alertness Alert Attention Span Ability Capable of Focused Attention Capable of Sustained Attention Safety Awareness Underestimates Need for Assistance M7 OT- IP Mobility and Balance Start: 04/07/18 15:30 Freq: Status: Active Protocol: Document 04/14/18 10:00 [facility] (Rec: 04/14/18 11:31 [facility] [id number]) OT- Bed Mobility Assessment Rolling Type of Rolling Roll to Right Supine to Sit Supine to Sit Assist Standby Assistance Sit to Supine Sit to Supine Assist Standby Assistance OT-Transfer Assessment Sit to and From Stand Sit to and from Stand Standby Assistance Contact Guard Assistance Comments Mobility Comments Today improved with bed mobility and bed flat. SBA with increased time x 5 with 1 -2 minute break in between. M8 OT- IP Objective Assessments Start: 04/07/18 15:30 Freq: Status: Active Protocol: Document 04/09/18 17:27 PJM (Rec: 04/09/18 17:38 PJM [id number]) OT Strength Comments Strength Comments Pt seen for education re: light blue theraband ex for 5 reps unilateral shldr flex, 5 reps bilateral horiz abduction , 5 reps biceps curls. Pt also educated re; red theraputty for 10 reps mass finger flex and 5 reps finger ext. M9 OT- IP Assessment and Plan Start: 04/07/18 15:30 Freq: Status: Active Protocol: Document 04/14/18 10:00 [facility] (Rec: 04/14/18 11:31 CCC [email or web address]) OT Summary Assessment and Plan Potential Rehabilitation Potential Fair Summary OT Impairments Strength Balance Coordination Functional Cognition Dressing Toileting Bathing Toilet Transfers Shower Transfers Progress Towards Goals Slow Progress due to Medical Issues Slow Progress due to Activity Tolerance Assessment Summary Pt still needs encouragement to do BUE exercises and Goals Self-Feeding Goal Standby Assistance Grooming Goal Standby Assistance Dressing Goal Standby Assistance Toileting Goal Standby Assistance Bathing Goal Standby Assistance Toilet Transfer Goal Standby Assistance Shower Transfer Goal Standby Assistance Patient/Caregiver Education Goal Demonstrate Post-Op Precautions Demonstrate Energy Conservation and Pacing Caregiver Independent Assisting Patient OT-Other Goals Pt to be indep with BUE/hand strengthening program with good technique. Days to Meet Goals 7 Frequency of Treatment Frequency Of Treatment Once a Day Treatment Plan OT Treatment Plan ADL Training Functional Mobility Therapeutic Exercises Patient/Family Education Discharge Planning Other Treatment Recommendations and Next Activity tolerance with ADL's. Treatment Focus Discharge Recommendations OT Discharge Recommendations LTAC Home Equipment Needs defer to facility
--- NOTE | 2018-04-14 12:10 | P.PN_ITS ---
Subjective Interval history: No new complaints today. He does report that he was unable to swallow today and says even liquids a problem for him. He seems distressed by that. He has had a downstairs for modified barium swallow as I am talking to him currently. He denies any abdominal pain. Still not working very well with physical therapy. Exam Vital Signs (past 8 hours): Vital Signs - 8 hr 3 04/14/18 10:08 Pulse Oximetry 99 Pulse Oximetry 99 Fraction of Inspired Oxygen 30 Oxygen Delivery Method Room Air Oxygen Flow Rate 0 Objective Labs Result Diagrams: 04/13/18 05:35 04/13/18 05:35 Labs: Laboratory Results - last 24 hr 04/13/18 14:10 Uric Acid 1.9 L Lactate Dehydrogenase 607 Assessment & Plan Plan: Plan: Continue current care. Await swallow results Quality VTE Deep Vein Thrombosis/Pulmonary Embolism Present on Admission: Yes
--- NOTE | 2018-04-14 12:14 | P.PN_ITS ---
Subjective Interval history: No new complaints today. He feels he is eating a little better today. Reports he has had tubal cereal and some eggs so far and is not even quite noon. He does not feel he can eat lunch as he says he has just been grazing all day so he would like exam gain for supper. All in all, he seems a little bit encouraged. He wants to know what we think about his white count. I told him I was concerned about a myelodysplastic disorder or problem with his body's ability to make white blood cells or make too many of them. He understands this may mean a malignancy. He is hoping to get all of these problems under control so that he can go home. Exam Vital Signs (past 8 hours): Vital Signs - 8 hr 3 04/14/18 10:08 Pulse Oximetry 99 Pulse Oximetry 99 Fraction of Inspired Oxygen 30 Oxygen Delivery Method Room Air Oxygen Flow Rate 0 Narrative Exam Narrative: No real change. Abdomen: Soft, active bowel sounds, wound is granulating with minimal slough at the base. Lungs: Clear bilaterally Heart: Regular rate and rhythm Objective Labs Result Diagrams: 04/13/18 05:35 04/13/18 05:35 Labs: Laboratory Results - last 24 hr 04/13/18 14:10 Uric Acid 1.9 L Lactate Dehydrogenase 607 Assessment & Plan Plan: Plan: 1. Dr. Cruz Peguero is scheduled to see him today regarding leukocytosis and thrombocytosis. 2. Continue to encourage oral intake and ambulation. We talked about a PEG tube. I actually think it needs a feeding tube we would have to do it as an open procedure. At any rate, he does not want either procedure. He says he is committed to eating more. We can give him a couple more days to increase his intake and then check a calorie count. He understands that when his calorie count is more than 2200 calories a day, we can stop his TPN. We certainly do not want to lose any ground. 3. Continue Megace as it seems to be helping 4. We discussed the wound VAC again today. He does not want the wound VAC even though he knows it might increase the rate at which his wound will close. As there are so many things that he is not able to control currently I think it is best to just continue with damp to dry dressings. Quality VTE Deep Vein Thrombosis/Pulmonary Embolism Present on Admission: Yes
--- NOTE | 2018-04-14 13:37 | PM.PN.1 ---
Subjective Interval history: He states he feels stronger today Exam Vital Signs (past 8 hours): Vital Signs - 8 hr 04/14/18 10:08 Pulse Oximetry 99 Pulse Oximetry 99 Fraction of Inspired Oxygen 30 Oxygen Delivery Method Room Air Oxygen Flow Rate 0 Narrative Exam Narrative: In general he just looks stronger and healthy year more awake and alert he is actually eating today Neck is supple Lungs clear Heart regular rhythm Abdomen thin soft ostomy in place midline incision granulating no signs of infection Skin warm and dry neck line looks clear Neuro exam unremarkable Objective Labs Result Diagrams: 04/13/18 05:35 04/13/18 05:35 Labs: Laboratory Results - last 24 hr 04/13/18 14:10 Uric Acid 1.9 L Lactate Dehydrogenase 607 Assessment & Plan Plan: Plan: 1. Acute pulmonary embolism: Clinically stable. Full-dose Lovenox was initiated on the evening of 04/03/2018, stopped 04/11/2018 after 48 hr of therapeutic INR overlap on warfarin. Patient can follow with Dr. Cedillo at [facility] for outpatient monitoring. He should complete 90 day duration of oral anticoagulant therapy. Added aspirin 325 mg daily 04/11/2018 given significant thrombocytosis. Continue PPI for gastric protection. INR 2.2 hematocrit 30.4 2. Aspiration pneumonia with acute hypoxic respiratory failure: Clinically resolving. He is off of supplemental oxygen. Treated with Tygacil and metronidazole through 04/05/2018. He continues to have some aspiration when he gets tired so he has kids past the future 1st few swallows fine then he does get tired and starts to have aspirations without continued concern. Does seem to be eating better today though. 3. Depression: Adequate control. Significant situational component. Continue Abilify 5 mg daily. He is also on sertraline 50 mg daily, increased 100 mg daily 04/11/[address] Finney's psychiatric consultation. 4. 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 Taking food by mouth and on TPN. Managed by surgery. 5. Septic shock: Resolved. Antibiotics per surgery. Note elevated rising WBC and platelet counts unclear whether due to active infection or inflammation. However he is afebrile with a benign abdominal exam. [place] [id number] on no labs this morning no fevers plan to recheck labs in the morning We will watch carefully PICC line replaced on 04/10/2018 as possible source of infection. Follow clinically. 6. Severe protein calorie malnutrition secondary to acute on chronic illness: He is on TPN for nutritional support. Encourage oral intake. Continue monitor his nutritional status. 7. Dysphagia: Likely secondary to muscle weakness. Followed by speech pathology. He is currently on nectar thick liquid. 8. Disposition: Awaiting insurance approval for transfer to [place]. Patient would benefit from LTAC due to profound weakness, compromise and need for ongoing therapy and TPN. Quality VTE Deep Vein Thrombosis/Pulmonary Embolism Present on Admission: Yes
--- NOTE | 2018-04-14 13:40 | P.PN_ITS ---
Subjective Interval history: He states he feels stronger today Exam Vital Signs (past 8 hours): Vital Signs - 8 hr 3 04/14/18 10:08 Pulse Oximetry 99 Pulse Oximetry 99 Fraction of Inspired Oxygen 30 Oxygen Delivery Method Room Air Oxygen Flow Rate 0 Narrative Exam Narrative: In general he just looks stronger and healthy year more awake and alert he is actually eating today Neck is supple Lungs clear Heart regular rhythm Abdomen thin soft ostomy in place midline incision granulating no signs of infection Skin warm and dry neck line looks clear Neuro exam unremarkable Objective Labs Result Diagrams: 04/13/18 05:35 04/13/18 05:35 Labs: Laboratory Results - last 24 hr 04/13/18 14:10 Uric Acid 1.9 L Lactate Dehydrogenase 607 Assessment & Plan Plan: Plan: 1. Acute pulmonary embolism: Clinically stable. Full-dose Lovenox was initiated on the evening of 04/03/2018, stopped 04/11/2018 after 48 hr of therapeutic INR overlap on warfarin. Patient can follow with Dr. Cedillo at [facility] for outpatient monitoring. He should complete 90 day duration of oral anticoagulant therapy. Added aspirin 325 mg daily 04/11/2018 given significant thrombocytosis. Continue PPI for gastric protection. INR 2.2 hematocrit 30.4 2. Aspiration pneumonia with acute hypoxic respiratory failure: Clinically resolving. He is off of supplemental oxygen. Treated with Tygacil and metronidazole through 04/05/2018. He continues to have some aspiration when he gets tired so he has kids past the future 1st few swallows fine then he does get tired and starts to have aspirations without continued concern. Does seem to be eating better today though. 3. Depression: Adequate control. Significant situational component. Continue Abilify 5 mg daily. He is also on sertraline 50 mg daily, increased 100 mg daily 04/11/[address] Finney's psychiatric consultation. 4. 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 Taking food by mouth and on TPN. Managed by surgery. 5. Septic shock: Resolved. Antibiotics per surgery. Note elevated rising WBC and platelet counts unclear whether due to active infection or inflammation. However he is afebrile with a benign abdominal exam. [place] [id number] on no labs this morning no fevers plan to recheck labs in the morning We will watch carefully PICC line replaced on 04/10/2018 as possible source of infection. Follow clinically. 6. Severe protein calorie malnutrition secondary to acute on chronic illness: He is on TPN for nutritional support. Encourage oral intake. Continue monitor his nutritional status. 7. Dysphagia: Likely secondary to muscle weakness. Followed by speech pathology. He is currently on nectar thick liquid. 8. Disposition: Awaiting insurance approval for transfer to [place]. Patient would benefit from LTAC due to profound weakness, compromise and need for ongoing therapy and TPN. Quality VTE Deep Vein Thrombosis/Pulmonary Embolism Present on Admission: Yes
--- NOTE | 2018-04-14 14:32 | DIET.PN ---
F/u with pt this afternoon following lunch. He is making a lot of progress with PO intake recently and I agree with other providers' notes from today - he looks better, sounds better, overall demeanor appears much brighter and more positive. Pt had a good-sized meal last night (13 April dinner) and this morning for (late) breakfast. Was too full to eat much lunch, but was eager to order dinner. I also offered him a blueberry protein smoothie from the kitchen, which he sounded interested in. Kitchen will be sending for afternoon snack. Discussed future plans for monitoring pt's nutritional status and progress with pt. He said Dr. Dawkins had told him he needed to consume 5K cals per day PO, but I wonder if this was meant to be 5K cals combined between TPN and PO, before he will be weaned from TPN? In either case, I stressed again that PO intake is what is going to help replenish the protein and micronutrients that his body was unable to absorb for so long - PO intake is what will help him heal, get back to active living, get back to being able to work, etc. He seemed MUCH more enthusiastic about these things and with that, determined to accomplish them. Dr. Dawkins recommended a calorie count in the near future and nutrition staff agrees. Briefly discussed what a calorie count would entail with pt and he understood, did not have any questions. aMy Ziegler, product marketing intern Bindu Ware RDN
--- NOTE | 2018-04-14 15:12 | PT.IPTN ---
Current Diagnoses Sepsis, unspecified organism (03/22/18) Hypocalcemia (03/22/18) Hypokalemia (03/22/18) Major depressive disorder, single episode, unspecified (03/22/18) Other pulmonary embolism without acute cor pulmonale (03/22/18) Chronic pulmonary edema (03/22/18) Acute postprocedural respiratory failure (03/22/18) Ulcerative colitis, unspecified, without complications (03/22/18) Perforation of intestine (nontraumatic) (03/22/18) Shortness of breath (03/22/18) Severe sepsis with septic shock (03/22/18) Physical Therapy Treatment Note M2 PT-IP Current Condition Start: 03/28/18 17:17 Freq: NEEDED Status: Active Protocol: Document 04/01/18 15:10 RCC (Rec: 04/01/18 16:30 RCC [id number]) Physical Therapy Current Condition Current Condition Evaluation Date 03/28/18 Treatment Diagnosis post-op colectomy for perforated bowel Onset Date 03/22/18 Post Operative Precautions Abdominal Surgery Precautions Log Roll Lifting Restrictions Gait Belt above Incisional Area Other Precautions contact precautions: MRSA on nares M3 PT-IP Subjective Start: 03/28/18 17:17 Freq: NEEDED Status: Active Protocol: Document 04/14/18 15:03 RS (Rec: 04/14/18 15:11 RS [id number]) Subjective Physical Therapy Visit Type Type Treatment Note Visit Start Time 14:40 Visit Stop Time 15:03 Total Visit Minutes 23 Number of BALL MILL OPERATOR Visits 0 Physical Therapy Visit Comments Patient Comments Pt reports that he's been able to eat a little bit more, feels better. Therapy Pain Assessment Pain When Pain Assessed At Rest Pain Present Pain Present Denied Pain M4 PT-IP Mobility and Gait Start: 03/28/18 17:17 Freq: NEEDED Status: Active Protocol: Document 04/14/18 15:03 RS (Rec: 04/14/18 15:11 RS [id number]) PT-Bed Mobility Assessment Rolling Type of Rolling Log Rolling Level of Assist Standby Assistance Supine to Sit Supine to Sit Standby Assistance Sit to Supine Sit to Supine Standby Assistance PT-Transfer Assessment Sit to and From Stand Sit to and from Stand Standby Assistance Equipment Transfer Assistive Device None Gait Belt Front Wheeled Walker Comments Mobility Comments P Gait Assessment Gait Gait Assistance Required: Contact Guard Assist Distance (Feet) (feet) 30 Assistive Devices Assistive Device Gait Belt 4 Wheeled Walker Factors Limiting Gait Function Factors Limiting Gait Function Decreased Activity Tolerance Decreased Strength M5 PT-IP Objective Assessments Start: 03/28/18 17:17 Freq: NEEDED Status: Active Protocol: Document 03/28/18 17:17 AB (Rec: 03/28/18 17:27 AB [id number]) Orientation Orientation/Cognition Level of Alertness Alert Orientation Name Situation Strength Lower Extremity Strength Assessment Bilaterally Impaired Hip 3+/5 Knee 3/5 Ankle 3+/5 M6 PT-IP Treatment Start: 03/28/18 17:17 Freq: NEEDED Status: Active Protocol: Document 04/14/18 15:03 RS (Rec: 04/14/18 15:11 RS [id number]) Physical Therapy Treatment Exercises Exercises Ankle Pumps Gluteal Sets Quad Sets Heel Slides Straight Leg Raises Supine Hip Abduction Seated Knee Flexion/Extension M7 PT-IP Assessment and Plan Start: 03/28/18 17:17 Freq: NEEDED Status: Active Protocol: Document 04/14/18 15:03 RS (Rec: 04/14/18 15:11 RS [id number]) PT Summary Assessment and Plan Potential Rehabilitation Potential Fair Status of Condition at Evaluation Evolving Summary Assessment Summary Pt did seem to have a little energy that coincides with pt' s report of being able to eat more today. However, pt still extremely weak and fatigued. Goals Bed Mobility Goal Independent Transfer Goal Independent Front Wheeled Walker Four Wheeled Walker Gait Goal Independent Front Wheel Walker Four Wheel Walker Gait Distance 500 Days to Meet Goals 7 Frequency of Treatment Frequency Of Treatment Once a Day Treatment Plan Physical Therapy Treatment Plan Gait Training Therapeutic Exercise Balance Retraining Discharge Planning Other Recommendations and Next Treatment spread out OT and PT sessions Focus or co-treat, work with nursing to establish a schedule for activity. Pt needs structure! Recommendations To Nursing Amount of Assist Needed 1 Person Assist Discharge Recommendations PT Discharge Recommendations Home with Assistance Home Health
[2018-04-14 16:00] VITALS: BP 107/74; PULSE 108; RESP 18; TEMP 37; O2SAT 100
[2018-04-14] MEDS: WARFARIN 5 MG TABLET PO (18:04)
[2018-04-14] MEDS: [UNRECOGNIZED DRUG - REMARK] 67.319 ML IV (19:12)
[2018-04-14] MEDS: FAT EMULSIONS 50 GM/250 ML EMULSION IV (19:13)
--- NOTE | 2018-04-14 20:07 | RT ---
O2 SAT ON RA NOTED AT 98%. BREATH SOUNDS ARE CLEAR. RR = 18. BRONCHODILATOR NOT NEEDED AT THIS TIME.
[2018-04-14 21:26] LABS: HEMOLYSIS 47 (0-50); Iron 43 ug/dL (49-181)
[2018-04-14 21:27] LABS: Lactate Dehydrogenase 760 U/L (313-618); Uric Acid 1.3 mg/dL (3.5-8.5)
[2018-04-14 21:37] LABS: Percent Iron Saturation 18 % (20-50); Total Iron Binding Capacity 241 ug/mL (261-462); Transferrin 162 mg/dL (206-381)
[2018-04-14 23:30] VITALS: BP 114/69; PULSE 111; TEMP 36.9; O2SAT 99
--- NOTE | 2018-04-15 | DI.US.S_ITS ---
PROCEDURE: US ABDOMEN LIMITED INDICATIONS: gallbladder TECHNIQUE: Real-time focused scanning was performed of the abdomen, with image documentation. COMPARISON: [facility], CT, CT ANGIO CHEST ABDOMEN PELVIS, 04/03/2018, 21:02. FINDINGS: The right hepatic lobe appeared normal, a dressing over the left hepatic region this allowed visualization including the pancreas area. Note is made of a 7 mm stone dependent within the gallbladder lumen without evidence of gallbladder wall thickening or gallbladder outflow obstruction. No biliary distention is seen. The common duct measures 5 mm. IMPRESSION: Limited study as discussed above but no acute cholecystitis or biliary obstruction is found. There is a 7 mm dependent layering gallstone within the gallbladder lumen. Dictated by: Zeke Ortega M.D. on 04/15/2018 at 17:22 Approved by: Zeke Ortega M.D. on 04/15/2018 at 17:23
[2018-04-15] MEDS: LORazepam 2 MG/ML SYRINGE 1 MG IV ×3 (00:08→21:27)
[2018-04-15] MEDS: SODIUM CHLORIDE 0.9% FLUSH 10 ML IV ×2 (00:08→09:44)
[2018-04-15 05:25] LABS: BUN Creatinine Ratio 56.7 (6-22); Calcium 7.6 mg/dL (8.4-10.2); Estimated Glomerular Filt Rate > 60.0 mL/min (>60); Glucose 101 mg/dL (70-100); HEMOLYSIS < 15 (0-50); Potassium 3.9 mmol/L (3.4-5.1); Sodium 135 mmol/L (137-145)
[2018-04-15 05:44] LABS: Hematocrit 27.6 % (41-53); Mean Corpuscular HGB Conc 32.7 % (30-36); Mean Corpuscular Hemoglobin 28.4 PG (26-34); Red Blood Cell Count 3.17 X10^6/uL (4.5-5.9); Red Cell Distribution Width 17.5 % (11.6-14.8)
[2018-04-15 05:59] LABS: White Blood Cell Count 37.1 X10^3/uL (4.5-11.0)
[2018-04-15 06:00] LABS: Add Manual Diff / Slide Review YES; Platelet Count 1447 X10^3/uL (150-400)
[2018-04-15] MEDS: PANTOPRAZOLE 40 MG TABLET PO (06:20)
[2018-04-15 06:52] LABS: Neutrophils Absolute Manual 30051 /uL (3000-5900); Total Cells Counted 100
[2018-04-15 06:53] LABS: Anisocytosis 1+; Hypochromasia 1+; Target Cells 1+
[2018-04-15] MEDS: MEGESTROL 20 MG TABLET 40 MG PO ×2 (09:43→21:17)
[2018-04-15] MEDS: SERTRALINE 50 MG TABLET 100 MG PO (09:44)
[2018-04-15] MEDS: DRONABINOL 2.5 MG CAPSULE PO ×3 (09:44→21:16)
[2018-04-15] MEDS: ASPIRIN EC 325 MG TABLET PO (09:44)
[2018-04-15] MEDS: MULTIVIT,CALC,MINS/IRON/FOLIC 1 TABLET 1 TAB PO (09:44)
[2018-04-15] MEDS: ARIPiprazole 10 MG TABLET 5 MG PO (09:44)
[2018-04-15 11:00] VITALS: BP 118/76; PULSE 115; RESP 20; TEMP 37.7; O2SAT 100
--- NOTE | 2018-04-15 11:16 | ST.IPTN ---
NUCLEAR WEAPONS MECHANICAL SPECIALIST Dysphagia Treatment NUCLEAR WEAPONS MECHANICAL SPECIALIST Dysphagia Treatment Start: 04/06/18 13:05 Freq: Status: Active Protocol: Document 04/15/18 11:08 [facility] (Rec: 04/15/18 11:16 [facility] [id number]) Dysphagia Treatment Session Time Visit Start Time 10:50 Visit Stop Time 11:00 Total Visit Minutes 10 Setting Assessment Location Acute Care Visit Type Note Type Treatment Note Next Note Type Next Note Type Treatment Note Patient Information Identification Type Name Subjective Observations Patient awake but tired, sitting up in chair with no family present. Stated that he was able to eat and drink well, and that he feels that his lungs are improving. He verbalized that he remembers his dysphagia strategies and uses them for his intake. No complaints of pain pre/post treatment. He declined trials of PO from NUCLEAR WEAPONS MECHANICAL SPECIALIST becuase he ate his breakfast recently and stated that his digestive tract felt full. RN requested that he go for a walk before he went back to bed to rest. Treatment Treatment Activities No trials administered due to patient request. However, NUCLEAR WEAPONS MECHANICAL SPECIALIST did provide additional strategies for oropharynegal function ([place], effortful swallow, double swallow, chin tuck, etc). Patient demonstrated ability to perform these exercises without difficulty and verablized undersatnding. NUCLEAR WEAPONS MECHANICAL SPECIALIST recommended performing the Soledad x3 reps of 10 in 15 minutes throughout the day. Patient agreed. Assessment Patient Response to Treatment Good Rehab Potential Good Assessment of Improvement Steady improvement with consistent tolerance of PO intake. Report of occasional coughing and implementation of strategies to assist himself. No trials compelted due to patient declince in participation secondary to feeling very full from breakfast. NUCLEAR WEAPONS MECHANICAL SPECIALIST provided additional strengthening strategies to further improve oropharyngeal function for safer swallowing. Patient demonstrated ability to perfrom these exercises and verbalized understanding of all information from NUCLEAR WEAPONS MECHANICAL SPECIALIST. No new complaints. Diet Recommendations Recommendations Continue Current Diet Liquids Order Thin Diet Order Mechanical Soft Medication Recommendations As Tolerated Additional Dietary Needs Encourage to Self-Feed Reminders to Use Strategies Aspiration Precautions Recommended Precautions Upright at 90 Degrees Alternate Liquids/Solids Frequent Rest Periods Small Bites/Sips Chin Tuck Effortful Swallow Double Swallow Treatment Plan Placement Recommendation after Discharge Inpatient Rehab Facility [facility] Appropriate for Continued Therapy Yes Therapy Recommendations Patient will comprehend education regarding swallow and implement necessary behaviors to improve swallow function. Meeting goal (04/15/18) Mandatory double swallow/ effortful swallow/chin tuck in order to prevent aspiration. Meeting goal (04/15/18) Monitor lungs. NUCLEAR WEAPONS MECHANICAL SPECIALIST will follow up tomorrow Dysphagia Goals Pt will safely tolerate the least-restrictive diet without aspiration. Meeting goal (04/15/18) Pt will implement safe swallow strategies to reduce aspiration risk. Meeting goal, needs reminders for consistency (04/15/18) Pt will receive education and training regarding aspiration risk and demonstrate verbal understanding. Meeting goal (04/15/18)
--- NOTE | 2018-04-15 11:19 | PM.PN.1 ---
Subjective Interval history: He states he feels stronger today he is starting to eat better Exam Vital Signs (past 8 hours): Pulse Oximetry 99 Fraction of Inspired Oxygen 30 Oxygen Delivery Method Room Air Oxygen Flow Rate 0 Narrative Exam Narrative: Appears to be in no acute distress Lungs are clear Heart regular rhythm Abdomen ostomy in place midline incision covered and dressed Skin warm and dry PICC line clear Neuro exam unremarkable Objective Labs Result Diagrams: 04/15/18 05:05 04/15/18 05:05 Labs: Laboratory Results - last 24 hr 04/14/18 04/14/18 04/15/18 21:00 21:00 05:05 WBC 37.1 H* RBC 3.17 L Hgb 9.0 L Hct 27.6 L MCV 87.0 MCH 28.4 MCHC 32.7 RDW 17.5 H Plt Count 1447 H* Neut % (Auto) Not Reportable Lymph % (Auto) Not Reportable [place] % (Auto) Not Reportable Eos % (Auto) Not Reportable Baso % (Auto) Not Reportable Total Counted 100 Seg Neutrophils % 79.0 H Band Neutrophils % 2.0 L Lymphocytes % (Manual) 8.0 L Monocytes % (Manual) 6.0 Eosinophils % (Manual) 2.0 Metamyelocytes % 2.0 H Myelocytes % 1.0 H Neutrophils # (Manual) 65702 H RBC Morphology Not Reportable Hypochromasia 1+ H Anisocytosis 1+ H Target Cells 1+ H Sodium Potassium Chloride Carbon Dioxide BUN Creatinine Estimated GFR BUN/Creatinine Ratio Glucose Uric Acid 1.3 L Calcium Iron 43 L TIBC 241 L % Saturation 18 L Transferrin 162 L Ferritin 626.0 H Lactate Dehydrogenase 760 H 04/15/18 05:05 WBC RBC Hgb Hct MCV MCH MCHC RDW Plt Count Neut % (Auto) Lymph % (Auto) [place] % (Auto) Eos % (Auto) Baso % (Auto) Total Counted Seg Neutrophils % Band Neutrophils % Lymphocytes % (Manual) Monocytes % (Manual) Eosinophils % (Manual) Metamyelocytes % Myelocytes % Neutrophils # (Manual) RBC Morphology Hypochromasia Anisocytosis Target Cells Sodium 135 L Potassium 3.9 Chloride 107.0 Carbon Dioxide 17.0 L BUN 17.0 Creatinine 0.30 L Estimated GFR > 60.0 BUN/Creatinine Ratio 56.7 H Glucose 101 H Uric Acid Calcium 7.6 L Iron TIBC % Saturation Transferrin Ferritin Lactate Dehydrogenase Assessment & Plan Plan: Plan: 1. Acute pulmonary embolism: Clinically stable. Full-dose Lovenox was initiated on the evening of 04/03/2018, stopped 04/11/2018 after 48 hr of therapeutic INR overlap on warfarin. Patient can follow with Dr. Cedillo at [facility] for outpatient monitoring. He should complete 90 day duration of oral anticoagulant therapy. Added aspirin 325 mg daily 04/11/2018 given significant thrombocytosis. Continue PPI for gastric protection. Plan to recheck INR tomorrow morning 2. Aspiration pneumonia with acute hypoxic respiratory failure: Clinically resolving. He is off of supplemental oxygen. Treated with Tygacil and metronidazole through 04/05/2018. He continues to have some aspiration when he gets tired so does well when he 1st starts swallowing but then as he swallows the patient does start aspirating this was reaffirmed by a modified barium swallow on April 18 per speech therapy they are continuing to work with him that he is doing better with eating 3. Depression: Adequate control. Significant situational component. Continue Abilify 5 mg daily. He is also on sertraline 50 mg daily, increased 100 mg daily 04/11/[address] Finney's psychiatric consultation. 4. 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 Taking food by mouth and on TPN. Managed by surgery. 5. Septic shock: Resolved. Antibiotics per surgery. Note elevated rising WBC and platelet counts unclear whether due to active infection or inflammation. However he is afebrile with a benign abdominal exam. [place] 27796 on no labs this morning no fevers plan to recheck labs in the morning We will watch carefully PICC line replaced on 04/10/2018 as possible source of infection. Follow clinically. 6. Severe protein calorie malnutrition secondary to acute on chronic illness: He is on TPN for nutritional support. Encourage oral intake. Continue monitor his nutritional status. 7. Dysphagia: Likely secondary to muscle weakness. Followed by speech pathology. He is currently on nectar thick liquid. 8. Disposition: Awaiting insurance approval for transfer to [place]. Patient would benefit from LTAC due to profound weakness, compromise and need for ongoing therapy and TPN. 9. Persistently elevated white count and platelet count. Possibly reactive due to the current acute medical problems sepsis that has resolved. Hematology will be consulting regarding this. There have been no fevers no site of infection at this point Quality VTE Deep Vein Thrombosis/Pulmonary Embolism Present on Admission: Yes
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
--- NOTE | 2018-04-15 14:28 | DIET.PN ---
Follow Up- Calorie Count Sending small, frequent feedings now as large meals overwhelm pt. Received 3 eggs w/toast for breakfast and states he just gets too full - ate only one egg. Sending hi pro smoothies between meals. Mom in room when visited to collect jaret count information. States she's bringing in food for patient. Last night brought sosa beef burrito from [employer], chips and steak. Provided education for mom on marking jaret count sheets for food brought in to help quantify total intake. Estimated Jaret count for last 24 hours: Dinner last night 575 kcal / 36-40 g pro (1/3 beef sosa burrito, few chips and 3oz steak) Snack (per mom) 125 kcal / 5g pro (peanut butter and gram crax) Breakfast today 185 kcal / 12g pro Lunch today 250 kcal / 2 g pro (mash pot w/bu and gravy only) Pt met approx 50% goal for PO intake yesterday per jaret count estimate. Majority of intake provided by food brought in by mom. Not taking ONS well, though states he still wants to try.
[2018-04-15 14:37] LABS: Alanine Aminotransferase 72 IU/L (21-72); Albumin 2.7 g/dL (3.5-5.0); Albumin Globulin Ratio 0.6 (1.0-2.8); Alkaline Phosphatase 319 U/L (38-126); Aspartate Aminotransferase 68 IU/L (17-59); Bilirubin Total 0.2 mg/dL (0.2-1.3); Globulin 4.2 g/dL (1.7-4.1); Total Protein 6.9 g/dL (6.3-8.2)
--- NOTE | 2018-04-15 14:50 | PC.NURSE ---
Day Shift Note Pt expresses feeling unmotivated and not having energy to participate. Encouraged to get up to chair for meals and to walk in room and out in mecredes. Did walk with FWW out to hallway and back - SOB with this exertion and reported feeling weak. Reinforced need for continued activity throughout the day and expressed understanding. See head to toe assessment for further details.
[2018-04-15 15:15] VITALS: BP 115/71; PULSE 113; RESP 18; TEMP 37.3; O2SAT 100
--- NOTE | 2018-04-15 15:34 | PC.NURSE ---
Addendum entered by Ritchie Roy R.N. 04/15/18 22:22: hand written note by patients mother was given to this nurse to give to Dr. Leong. Note was hand delivered to Dr. Leong today. Patient refused to get up this shift an walk in halls w/ staff. Wet to Dry drg. changed, patient tolerated well. Original Note: patient is resting in bed at this time. Is A&O x3, pleasant and cooperative w/ staff and able to make needs known. suction set up at bedside for patient use. Denies any pain. Patient is conservative but has little interest in participating in ADL's, encouraged patient to get up into chair for dinner and patient was agreeable to plan. Call light w/in reach, bed in low pos. alarm not active as patient uses call light w/ needs and is compliant w/ fall risk.
--- NOTE | 2018-04-15 15:45 | OT.IP.TRT ---
Current Diagnoses Sepsis, unspecified organism (03/22/18) Hypocalcemia (03/22/18) Hypokalemia (03/22/18) Major depressive disorder, single episode, unspecified (03/22/18) Other pulmonary embolism without acute cor pulmonale (03/22/18) Chronic pulmonary edema (03/22/18) Acute postprocedural respiratory failure (03/22/18) Ulcerative colitis, unspecified, without complications (03/22/18) Perforation of intestine (nontraumatic) (03/22/18) Shortness of breath (03/22/18) Severe sepsis with septic shock (03/22/18) Occupational Therapy Treatment Note M2 OT-IP Current Condition Start: 04/07/18 15:30 Freq: Status: Active Protocol: Document 04/11/18 12:29 [facility] (Rec: 04/11/18 12:43 [facility] [id number]) Occupational Therapy Current Condition Current Condition Evaluation Date 04/07/18 Treatment Diagnosis decreased BUE/hand strength, endurance and self care skills Diagnosis Onset Date 03/22/18 Post Operative Precautions Abdominal Surgery Precautions Log Roll Lifting Restrictions Gait Belt above Incisional Area Other Precautions open abdominal incision with wet to dry dressings and new ileostomy M3 OT- IP Subjective and Pain Start: 04/07/18 15:30 Freq: Status: Active Protocol: Document 04/15/18 12:30 [facility] (Rec: 04/15/18 15:45 [facility] [id number]) OT- Subjective Occupational Therapy Visit Type Type Treatment Note Visit Start Time 12:30 Visit Stop Time 13:00 Total Visit Minutes 30 Notes Pt needing encouragement to participate in therapy. Occupational Therapy Visit Comments Patient Comments Pt states still feeling very tired, but agreeable to try therapy. OT Pain Assessment Pain When Pain Assessed At Rest Pain Present Pain Present Denied Pain M4 OT- IP ADL's Start: 04/07/18 15:30 Freq: Status: Active Protocol: Document 04/15/18 12:30 [facility] (Rec: 04/15/18 15:45 [facility] [id number]) OT ADL-Dressing General Eval Lower Body Dressing Ability Standby Assistance Areas Needing Assistance Retrieving/Set-up of Clothing Comments OT Dressing Comments Pt able to lauren/doff pants/ socks whil in bed with increased time. M5 OT- IP IADL's Start: 04/07/18 15:30 Freq: Status: Active Protocol: Document 04/07/18 15:26 [facility] (Rec: 04/07/18 15:50 [facility] [id number]) OT-Instrumental Activities of Daily Living Deficits IADL Deficits Identified Deficits Home Safety Awareness Awareness of Need for Assistance at Home Decreased Awareness Meal Preparation Meal Preparation Comments total assist on modified diet at present, DMA w/nectar thicks [employer] Associate [employer] Associate Comments Total assist Driving Driving Comments pt unable to drive at present M6 OT- IP Functional Cognition Start: 04/07/18 15:30 Freq: Status: Active Protocol: Document 04/14/18 10:00 [facility] (Rec: 04/14/18 11:31 [facility] [id number]) Cognitive Factors Limiting Selfcare Function Cognitive Ability Level of Alertness Alert Attention Span Ability Capable of Focused Attention Capable of Sustained Attention Safety Awareness Underestimates Need for Assistance M7 OT- IP Mobility and Balance Start: 04/07/18 15:30 Freq: Status: Active Protocol: Document 04/15/18 12:30 [facility] (Rec: 04/15/18 15:45 [facility] [id number]) OT- Bed Mobility Assessment Supine to Sit Supine to Sit Assist Standby Assistance Sit to Supine Sit to Supine Assist Standby Assistance OT-Transfer Assessment Comments Mobility Comments Pt able to sit at edge of bed for 7 minutes to write cards to his kids. M8 OT- IP Objective Assessments Start: 04/07/18 15:30 Freq: Status: Active Protocol: Document 04/09/18 17:27 [facility] (Rec: 04/09/18 17:38 [facility] [id number]) OT Strength Comments Strength Comments Pt seen for education re: light blue theraband ex for 5 reps unilateral shldr flex, 5 reps bilateral horiz abduction , 5 reps biceps curls. Pt also educated re; red theraputty for 10 reps mass finger flex and 5 reps finger ext. M9 OT- IP Assessment and Plan Start: 04/07/18 15:30 Freq: Status: Active Protocol: Document 04/15/18 12:30 [facility] (Rec: 04/15/18 15:45 [facility] [id number]) OT Summary Assessment and Plan Potential Rehabilitation Potential Fair Summary OT Impairments Strength Balance Coordination Functional Cognition Dressing Toileting Bathing Toilet Transfers Shower Transfers Progress Towards Goals Slow Progress due to Medical Issues Slow Progress due to Activity Tolerance Assessment Summary Pt now agreeable to set schedule to participate in ADl 's daily and shower M,W,F and do PT in the afternoon. Goals Self-Feeding Goal Standby Assistance Grooming Goal Standby Assistance Dressing Goal Standby Assistance Toileting Goal Standby Assistance Bathing Goal Standby Assistance Toilet Transfer Goal Standby Assistance Shower Transfer Goal Standby Assistance Patient/Caregiver Education Goal Demonstrate Energy Conservation and Pacing Caregiver Independent Assisting Patient OT-Other Goals Pt to be indep with BUE/hand strengthening program with good technique. Days to Meet Goals 7 Frequency of Treatment Frequency Of Treatment Once a Day Treatment Plan OT Treatment Plan ADL Training Functional Mobility Therapeutic Exercises Patient/Family Education Discharge Planning Other Treatment Recommendations and Next Activity tolerance with ADL's. Treatment Focus Discharge Recommendations OT Discharge Recommendations LTAC Home Equipment Needs defer to facility
--- NOTE | 2018-04-15 16:02 | PT.IPTN ---
Current Diagnoses Sepsis, unspecified organism (03/22/18) Hypocalcemia (03/22/18) Hypokalemia (03/22/18) Major depressive disorder, single episode, unspecified (03/22/18) Other pulmonary embolism without acute cor pulmonale (03/22/18) Chronic pulmonary edema (03/22/18) Acute postprocedural respiratory failure (03/22/18) Ulcerative colitis, unspecified, without complications (03/22/18) Perforation of intestine (nontraumatic) (03/22/18) Shortness of breath (03/22/18) Severe sepsis with septic shock (03/22/18) Physical Therapy Treatment Note M2 PT-IP Current Condition Start: 03/28/18 17:17 Freq: NEEDED Status: Active Protocol: Document 04/01/18 15:10 [facility] (Rec: 04/01/18 16:30 [facility] [id number]) Physical Therapy Current Condition Current Condition Evaluation Date 03/28/18 Treatment Diagnosis post-op colectomy for perforated bowel Onset Date 03/22/18 Post Operative Precautions Abdominal Surgery Precautions Log Roll Lifting Restrictions Gait Belt above Incisional Area Other Precautions contact precautions: 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 Willing to get up to chair but refused ambulation Therapy Pain Assessment Pain Present Pain Present Denied Pain M4 PT-IP Mobility and Gait Start: 03/28/18 17:17 Freq: NEEDED Status: Active Protocol: Document 04/15/18 10:10 SAK (Rec: 04/15/18 16:02 [facility] [id number]) PT-Bed Mobility Assessment Rolling Type of Rolling Log Rolling Level of Assist Standby Assistance Supine to Sit Supine to Sit Standby Assistance PT-Transfer Assessment Equipment Transfer Assistive Device None Gait Belt Front Wheeled Walker Comments Mobility Comments No LOB during transfer, demonstrated good safety awareness M5 PT-IP Objective Assessments Start: 03/28/18 17:17 Freq: NEEDED Status: Active Protocol: Document 03/28/18 17:17 AB (Rec: 03/28/18 17:27 AB [id number]) Orientation Orientation/Cognition Level of Alertness Alert Orientation Name Situation Strength Lower Extremity Strength Assessment Bilaterally Impaired Hip 3+/5 Knee 3/5 Ankle 3+/5 M6 PT-IP Treatment Start: 03/28/18 17:17 Freq: NEEDED Status: Active Protocol: Document 04/15/18 10:10 SAK (Rec: 04/15/18 16:02 [facility] [id number]) Physical Therapy Treatment Exercises Exercises Ankle Pumps Gluteal Sets Quad Sets Heel Slides Straight Leg Raises Supine Hip Abduction Seated Knee Flexion/Extension M7 PT-IP Assessment and Plan Start: 03/28/18 17:17 Freq: NEEDED Status: Active Protocol: Document 04/15/18 10:10 SAK (Rec: 04/15/18 16:02 [facility] [id number]) PT Summary Assessment and Plan Potential Rehabilitation Potential Fair Status of Condition at Evaluation Evolving Summary Assessment Summary Low tolerance for PT today, poor appetite verbalized. Goals Bed Mobility Goal Independent Transfer Goal Independent Front Wheeled Walker Four Wheeled Walker Gait Goal Independent Front Wheel Walker Four Wheel Walker Gait Distance 500 Days to Meet Goals 7 Frequency of Treatment Frequency Of Treatment Once a Day Treatment Plan Physical Therapy Treatment Plan Gait Training Therapeutic Exercise Balance Retraining Discharge Planning Other Recommendations and Next Treatment spread out OT and PT sessions Focus or co-treat, work with nursing to establish a schedule for activity. Pt needs structure! Recommendations To Nursing Amount of Assist Needed 1 Person Assist Discharge Recommendations PT Discharge Recommendations Home with Assistance Home Health
--- NOTE | 2018-04-15 16:24 | CM.DPNOTE ---
DCP: continued: called [facility] admission cell again: and left message for [facility] requesting update re status of [facility] auth process. Hope to hear back by tomorrow morning on the [id number] line. P: remains d/c to [facility] pending [facility] authorization. Oncology is now consulting per Dr. Leong.
[2018-04-15] MEDS: [UNRECOGNIZED DRUG - REMARK] 67.319 ML IV (18:13)
[2018-04-15] MEDS: FAT EMULSIONS 50 GM/250 ML EMULSION IV (18:17)
[2018-04-15] MEDS: WARFARIN 5 MG TABLET PO (18:21)
--- NOTE | 2018-04-15 20:28 | PM.PN.1 ---
Subjective Interval history: He states he feels stronger today he is starting to eat better. Collin says he knows he ate at least 600 calories today and would very much like us to do a calorie count. He wonders if decreasing the TPN would help him to feel hungry air. He is only walked a little bit. Exam Vital Signs (past 8 hours): Vital Signs - 8 hr 04/15/18 15:15 Temperature 99.1 F Pulse Rate 113 H Respiratory Rate 18 Blood Pressure 115/71 Pulse Oximetry 100 Pulse Oximetry 100 Fraction of Inspired Oxygen 30 Oxygen Delivery Method Room Air Oxygen Flow Rate 0 Narrative Exam Narrative: Brighter. Appears less agitated and more interactive Lungs: Essentially clear bilaterally. Somewhat noisy breath sounds that improved with coughing Heart: Regular rate and rhythm without murmur Abdomen: Soft, active bowel sounds, wound is clean and dry and intact. Extremities: Warm and well perfused Objective Labs Result Diagrams: 04/15/18 05:05 04/15/18 05:05 Labs: Laboratory Results - last 24 hr 04/14/18 04/14/18 04/15/18 21:00 21:00 05:05 WBC 37.1 H* RBC 3.17 L Hgb 9.0 L Hct 27.6 L MCV 87.0 MCH 28.4 MCHC 32.7 RDW 17.5 H Plt Count 1447 H* Neut % (Auto) Not Reportable Lymph % (Auto) Not Reportable Morris % (Auto) Not Reportable Eos % (Auto) Not Reportable Baso % (Auto) Not Reportable Total Counted 100 Seg Neutrophils % 79.0 H Band Neutrophils % 2.0 L Lymphocytes % (Manual) 8.0 L Monocytes % (Manual) 6.0 Eosinophils % (Manual) 2.0 Metamyelocytes % 2.0 H Myelocytes % 1.0 H Neutrophils # (Manual) 69215 H RBC Morphology Not Reportable Hypochromasia 1+ H Anisocytosis 1+ H Target Cells 1+ H Sodium Potassium Chloride Carbon Dioxide BUN Creatinine Estimated GFR BUN/Creatinine Ratio Glucose Uric Acid 1.3 L Calcium Iron 43 L TIBC 241 L % Saturation 18 L Transferrin 162 L Ferritin 626.0 H Total Bilirubin Conjugated Bilirubin Unconjugated Bilirubin AST ALT Alkaline Phosphatase Lactate Dehydrogenase 760 H Total Protein Albumin Globulin Albumin/Globulin Ratio 04/15/18 05:05 WBC RBC Hgb Hct MCV MCH MCHC RDW Plt Count Neut % (Auto) Lymph % (Auto) Morris % (Auto) Eos % (Auto) Baso % (Auto) Total Counted Seg Neutrophils % Band Neutrophils % Lymphocytes % (Manual) Monocytes % (Manual) Eosinophils % (Manual) Metamyelocytes % Myelocytes % Neutrophils # (Manual) RBC Morphology Hypochromasia Anisocytosis Target Cells Sodium 135 L Potassium 3.9 Chloride 107.0 Carbon Dioxide 17.0 L BUN 17.0 Creatinine 0.30 L Estimated GFR > 60.0 BUN/Creatinine Ratio 56.7 H Glucose 101 H Uric Acid Calcium 7.6 L Iron TIBC % Saturation Transferrin Ferritin Total Bilirubin 0.2 Conjugated Bilirubin 0.0 Unconjugated Bilirubin 0.0 AST 68 H ALT 72 Alkaline Phosphatase 319 H Lactate Dehydrogenase Total Protein 6.9 Albumin 2.7 L Globulin 4.2 H Albumin/Globulin Ratio 0.6 L Assessment & Plan Plan: Plan: 1. Continued improvement. Collin reports that even at his heaviest and busiest, he never ate very much. He says he has just never had much of an appetite. 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 2. He feels convinced that he would eat more if he could cook for himself and so very much wants to be discharged home. 3. We will start a calorie count tomorrow. I do not think it is remotely possible that he is taking in enough calories to stop TPN but we could consider decreasing TPN calories in favor of oral calories. Quality VTE Deep Vein Thrombosis/Pulmonary Embolism Present on Admission: Yes
--- NOTE | 2018-04-15 20:31 | P.PN_ITS ---
Subjective Interval history: He states he feels stronger today he is starting to eat better. Collin says he knows he ate at least 600 calories today and would very much like us to do a calorie count. He wonders if decreasing the TPN would help him to feel hungry air. He is only walked a little bit. Exam Vital Signs (past 8 hours): Vital Signs - 8 hr 3 04/15/18 15:15 Temperature 99.1 F Pulse Rate 113 H Respiratory Rate 18 Blood Pressure 115/71 Pulse Oximetry 100 Pulse Oximetry 100 Fraction of Inspired Oxygen 30 Oxygen Delivery Method Room Air Oxygen Flow Rate 0 Narrative Exam Narrative: Brighter. Appears less agitated and more interactive Lungs: Essentially clear bilaterally. Somewhat noisy breath sounds that improved with coughing Heart: Regular rate and rhythm without murmur Abdomen: Soft, active bowel sounds, wound is clean and dry and intact. Extremities: Warm and well perfused Objective Labs Result Diagrams: 04/15/18 05:05 04/15/18 05:05 Labs: Laboratory Results - last 24 hr 04/14/18 04/14/18 04/15/18 21:00 21:00 05:05 WBC 37.1 H* RBC 3.17 L Hgb 9.0 L Hct 27.6 L MCV 87.0 MCH 28.4 MCHC 32.7 RDW 17.5 H Plt Count 1447 H* Neut % (Auto) Not Reportable Lymph % (Auto) Not Reportable Benzie % (Auto) Not Reportable Eos % (Auto) Not Reportable Baso % (Auto) Not Reportable Total Counted 100 Seg Neutrophils % 79.0 H Band Neutrophils % 2.0 L Lymphocytes % (Manual) 8.0 L Monocytes % (Manual) 6.0 Eosinophils % (Manual) 2.0 Metamyelocytes % 2.0 H Myelocytes % 1.0 H Neutrophils # (Manual) 07699 H RBC Morphology Not Reportable Hypochromasia 1+ H Anisocytosis 1+ H Target Cells 1+ H Sodium Potassium Chloride Carbon Dioxide BUN Creatinine Estimated GFR BUN/Creatinine Ratio Glucose Uric Acid 1.3 L Calcium Iron 43 L TIBC 241 L % Saturation 18 L Transferrin 162 L Ferritin 626.0 H Total Bilirubin Conjugated Bilirubin Unconjugated Bilirubin AST ALT Alkaline Phosphatase Lactate Dehydrogenase 760 H Total Protein Albumin Globulin Albumin/Globulin Ratio 04/15/18 05:05 WBC RBC Hgb Hct MCV MCH MCHC RDW Plt Count Neut % (Auto) Lymph % (Auto) Benzie % (Auto) Eos % (Auto) Baso % (Auto) Total Counted Seg Neutrophils % Band Neutrophils % Lymphocytes % (Manual) Monocytes % (Manual) Eosinophils % (Manual) Metamyelocytes % Myelocytes % Neutrophils # (Manual) RBC Morphology Hypochromasia Anisocytosis Target Cells Sodium 135 L Potassium 3.9 Chloride 107.0 Carbon Dioxide 17.0 L BUN 17.0 Creatinine 0.30 L Estimated GFR > 60.0 BUN/Creatinine Ratio 56.7 H Glucose 101 H Uric Acid Calcium 7.6 L Iron TIBC % Saturation Transferrin Ferritin Total Bilirubin 0.2 Conjugated Bilirubin 0.0 Unconjugated Bilirubin 0.0 AST 68 H ALT 72 Alkaline Phosphatase 319 H Lactate Dehydrogenase Total Protein 6.9 Albumin 2.7 L Globulin 4.2 H Albumin/Globulin Ratio 0.6 L Assessment & Plan Plan: Plan: 1. Continued improvement. Collin reports that even at his heaviest and busiest , he never ate very much. He says he has just never had much of an appetite. 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 2. He feels convinced that he would eat more if he could cook for himself and so very much wants to be discharged home. 3. We will start a calorie count tomorrow. I do not think it is remotely possible that he is taking in enough calories to stop TPN but we could consider decreasing TPN calories in favor of oral calories. Quality VTE Deep Vein Thrombosis/Pulmonary Embolism Present on Admission: Yes
[2018-04-16 00:09] VITALS: BP 117/79; PULSE 117; RESP 20; TEMP 36.7; O2SAT 98
[2018-04-16] MEDS: LORazepam 2 MG/ML SYRINGE 1 MG IV ×2 (03:08→21:40)
[2018-04-16] MEDS: PANTOPRAZOLE 40 MG TABLET PO (06:07)
[2018-04-16] MEDS: SODIUM CHLORIDE 0.9% FLUSH 10 ML IV ×2 (06:08→08:44)
[2018-04-16 06:37] LABS: Hematocrit 27.6 % (41-53); Hemoglobin 9.1 g/dL (13.5-17.5); Mean Corpuscular HGB Conc 33.1 % (30-36); Mean Corpuscular Hemoglobin 28.8 PG (26-34); Red Blood Cell Count 3.17 X10^6/uL (4.5-5.9); Red Cell Distribution Width 17.6 % (11.6-14.8)
[2018-04-16 06:42] LABS: INR 1.8 (0.9-1.3); Prothrombin Time 19.9 SECONDS (10.1-12.7); White Blood Cell Count 42.7 X10^3/uL (4.5-11.0)
[2018-04-16 06:43] LABS: Add Manual Diff / Slide Review YES; Platelet Count 1304 X10^3/uL (150-400)
[2018-04-16 06:46] LABS: BUN Creatinine Ratio 37.5 (6-22); Calcium 8.1 mg/dL (8.4-10.2); Estimated Glomerular Filt Rate > 60.0 mL/min (>60); Glucose 104 mg/dL (70-100); HEMOLYSIS < 15 (0-50); Sodium 134 mmol/L (137-145)
[2018-04-16 06:49] LABS: Anisocytosis 1+; Neutrophils Absolute Manual 35014 /uL (3000-5900); Total Cells Counted 100
[2018-04-16 06:50] LABS: Target Cells 1+
[2018-04-16 08:24] VITALS: BP 115/73; PULSE 117; RESP 18; TEMP 36.7; O2SAT 98
[2018-04-16] MEDS: MULTIVIT,CALC,MINS/IRON/FOLIC 1 TABLET 1 TAB PO (08:44)
[2018-04-16] MEDS: ASPIRIN EC 325 MG TABLET PO (08:47)
[2018-04-16] MEDS: SERTRALINE 50 MG TABLET 100 MG PO (08:47)
[2018-04-16] MEDS: MEGESTROL 20 MG TABLET 40 MG PO ×2 (08:48→20:39)
[2018-04-16] MEDS: ARIPiprazole 10 MG TABLET 5 MG PO (08:48)
[2018-04-16] MEDS: DRONABINOL 2.5 MG CAPSULE PO ×3 (08:52→20:39)
--- NOTE | 2018-04-16 09:30 | ST.IPTN ---
CERTIFIED PROSTHETIST Dysphagia Treatment CERTIFIED PROSTHETIST Dysphagia Treatment Start: 04/06/18 13:05 Freq: Status: Active Protocol: Document 04/16/18 09:30 [facility] (Rec: 04/16/18 11:52 [facility] [id number]) Dysphagia Treatment Session Time Visit Start Time 09:00 Visit Stop Time 09:20 Total Visit Minutes 20 Setting Assessment Location Acute Care Visit Type Note Type Treatment Note Next Note Type Next Note Type Treatment Note Patient Information Identification Type Name Subjective Observations Patient awake, sitting up in bed with no family present. No complaint of pain pre/post treatment. RNKylee, assisted CERTIFIED PROSTHETIST in repositioning patient upright in bed for safe intake . Seen with breakfast tray. Patient currently on calorie count. CERTIFIED PROSTHETIST completed calorie count card, per MD order. Patient very interested in hearing if he has been approved for discharge to [place], pending Alberto. At this time, still awaiting authorization, per information from CM in rounds. Patient independent in PO intake. Treatment Liquids Trialed Thin Solids Trialed Mechanical Soft Administration Type Controlled Cup Sip Self-Feeding Oral Strategies Upright at 90 degrees Double Swallow Controlled Bite/Sip Size Alternate Liquids/Solids Other Pharyngeal Phase Strategies Chin Tuck Double Swallow Effortful Swallow Small Bites and Sips Alternate Liquids/Solids Treatment Activities Trials of mechancail soft food and cup sips of thin liquids with chin tuck. Dysphagia strategies implemented: Double swallow, effortful swallow, lizz maneuver, chin tuck . Throat clear/double swallow encouraged. Patient did cough periodically during meal, but RN listened to his lungs and stated that they sound clear. Assessment Patient Response to Treatment Good Rehab Potential Good Assessment of Improvement Patient continues to gain strength daily. His intake is improving, as is his endourance throughout a meal. However, overall he is still very weak. He was able to demonstrate accuracy in implementation of dysphagia strategies throughout his breakfast, however, he did require cues from CERTIFIED PROSTHETIST for consistency. He has been observed to be impulsive with his drinks, attempting to drink multiple swallows without a chin tuck. CERTIFIED PROSTHETIST reviewed the reasoning for slow, controlled cup sips with intentional chin tuck for safety. He verbalized understanding. Patient took multiple pills at once with thin liquid. Decreased vocal quality and minor cough observed after. CERTIFIED PROSTHETIST recommended taking medication one at a time slowly with additional swallows. Patient not very interested in this and stated that he was fine. No diet upgrade at this time. Continue current diet. Diet Recommendations Recommendations Continue Current Diet Liquids Order Thin Diet Order Mechanical Soft Medication Recommendations As Tolerated Comments Pills one at a time Additional Dietary Needs Encourage to Self-Feed Reminders to Use Strategies Aspiration Precautions Recommended Precautions Upright at 90 Degrees Alternate Liquids/Solids Frequent Rest Periods Small Bites/Sips Chin Tuck Effortful Swallow Double Swallow Lingual Sweep Check for Pocketing Lizz Maneuvor Treatment Plan Placement Recommendation after Discharge Inpatient Rehab Facility Appropriate for Continued Therapy Yes Therapy Recommendations Patient will comprehend education regarding swallow and implement necessary behaviors to improve swallow function. Meeting goal (04/16/18) Mandatory double swallow/ effortful swallow/chin tuck in order to prevent aspiration. Meeting goal, but requires reminders and encouragement from staff (04/16/18) Monitor lungs. RNKylee, stated lungs sound clear this AM (04/16/18) CERTIFIED PROSTHETIST will follow up tomorrow Dysphagia Goals Pt will safely tolerate the least-restrictive diet without aspiration. Meeting goal (04/16/18) Pt will implement safe swallow strategies to reduce aspiration risk. Meeting goal with slow progress, needs multiple reminders for consistency () Pt will receive education and training regarding aspiration risk and demonstrate verbal understanding. Meeting goal (04/16/18)
--- NOTE | 2018-04-16 10:18 | CM.DPNOTE ---
Called and left voicemail with [facility] requesting update on Auth.
--- NOTE | 2018-04-16 14:12 | DIET.PN ---
Updated calorie count for pt, incorporating dinner 15 Apr 2018 through lunch 16 Apr 2018. Estimated Bob count for last 24 hours: Dinner 15 April (per pt's mom) 720 kcal / 35 g pro (2/3 egg roll, 2/3 C broccoli & beef w/ rice noodles, 1 Iced Coffee) Breakfast 16 April 395 kcal / 21 g pro (1 egg, 1/4 piece white bread, 1 pat butter, 1/2C [employer], 4oz whole milk, 1 bottle Gatorade) Lunch 16 April 470 kcal / 17 g pro (3/4 C mash pot w 3 oz gravy; 1 Iced Coffee, 295mL Gatorade) 15 April dinner intake based solely on estimates provided by pt's mother. Assuming estimates are accurate, pt has consumed 1585 kcals and 73 g pro in previous 24 hours. Pt met approx 70% goal for PO intake yesterday per bob count estimate. Majority of intake provided by food brought in by mom. Kitchen still providing inter-meal protein smoothies which are not being consumed. Will ask kitchen to stop sending these and offer other snacks which pt has showed preference for (PB & crax, etc) If pt's intake remains at this level or better through tomorrow, recommend decreasing TPN by half and eliminating lipid emulsion. New TPN should be as follows: 500mL 10% AA 250mL D50W 0mL lipid May Ziegler, music intern [employer], [employer]
--- NOTE | 2018-04-16 14:23 | PC.NURSE ---
PER DR. CUEVAS CHANGE DRSG BID. DR. KENNEY ROUNDING DURING DRSG CHANGE AND ENC DEBRIDEMENT WITH SALINE AND GAUZE TO REMOVE YELLOW SLOUGH AND SMALL AMT OF BLACK ESCHAR. PT TOLERATED DRSG CHANGE WELL . DENIES PAIN DURING DRSG CHANGE.
--- NOTE | 2018-04-16 14:54 | P.PN_ITS ---
Subjective Interval history: Calorie count is underway and Collin is feeling better. According to the dietitians note, he appears to be taking in about 15 or 1600 calories over the last 24 hr. He reports he is feeling a little hungry year and is excited about the possibility of decreasing his TPN. He has agreed to walk with physical therapy at 2 o'clock this afternoon. His pain is well controlled. Exam Vital Signs (past 8 hours): Vital Signs - 8 hr 3 04/16/18 08:24 Temperature 98.0 F Pulse Rate 117 H Respiratory Rate 18 Blood Pressure 115/73 Pulse Oximetry 98 Pulse Oximetry 98 Fraction of Inspired Oxygen 30 Oxygen Delivery Method Room Air Oxygen Flow Rate 0 Narrative Exam Narrative: Lungs: Clear bilaterally Heart: Regular rate and rhythm Abdomen: Soft, wound is fairly clean there is some slough underneath dressing. Active bowel sounds. Ostomy is viable and working Extremities: No edema Objective Labs Result Diagrams: 04/16/18 06:00 04/16/18 06:00 Labs: Laboratory Results - last 24 hr 04/16/18 04/16/18 04/16/18 06:00 06:00 06:00 WBC 42.7 H* RBC 3.17 L Hgb 9.1 L Hct 27.6 L MCV 87.0 MCH 28.8 MCHC 33.1 RDW 17.6 H Plt Count 1304 H* Neut % (Auto) Not Reportable Lymph % (Auto) Not Reportable Hyde % (Auto) Not Reportable Eos % (Auto) Not Reportable Baso % (Auto) Not Reportable Total Counted 100 Seg Neutrophils % 79.0 H Band Neutrophils % 3.0 Lymphocytes % (Manual) 8.0 L Monocytes % (Manual) 5.0 Metamyelocytes % 5.0 H Neutrophils # (Manual) 52430 H RBC Morphology Not Reportable Anisocytosis 1+ H Target Cells 1+ H PT 19.9 H INR 1.8 H Sodium 134 L Potassium 4.0 Chloride 105.0 Carbon Dioxide 17.0 L BUN 15.0 Creatinine 0.40 L Estimated GFR > 60.0 BUN/Creatinine Ratio 37.5 H Glucose 104 H Calcium 8.1 L Assessment & Plan Plan: Plan: Continued improvement. We will continue the calorie count through tomorrow at lunch. If his intake stays up, we will decrease his TPN by half according to the dietitians recommendations. Quality VTE Deep Vein Thrombosis/Pulmonary Embolism Present on Admission: Yes
--- NOTE | 2018-04-16 15:24 | PM.PN.1 ---
Subjective Interval history: Collin is doing much better compared to when I last saw him about a week ago. He has improvement of his appetite. He is able to walk with assistance into the hallway. Is trying to establish daily routine Exam Vital Signs (past 8 hours): Vital Signs - 8 hr 04/16/18 08:24 Temperature 98.0 F Pulse Rate 117 H Respiratory Rate 18 Blood Pressure 115/73 Pulse Oximetry 98 Pulse Oximetry 98 Fraction of Inspired Oxygen 30 Oxygen Delivery Method Room Air Oxygen Flow Rate 0 Narrative Exam Narrative: General: Thin middle-aged man in no acute distress Lungs: Clear bilaterally Heart: Regular rate and rhythm Abdomen: Soft, wound is fairly clean with 80% granulation tissue. there is some slough underneath dressing. Active bowel sounds. Ostomy has normal output Extremities: No edema Objective Labs Result Diagrams: 04/16/18 06:00 04/16/18 06:00 Labs: Laboratory Results - last 24 hr 04/16/18 04/16/18 04/16/18 06:00 06:00 06:00 WBC 42.7 H* RBC 3.17 L Hgb 9.1 L Hct 27.6 L MCV 87.0 MCH 28.8 MCHC 33.1 RDW 17.6 H Plt Count 1304 H* Neut % (Auto) Not Reportable Lymph % (Auto) Not Reportable Mcdonough % (Auto) Not Reportable Eos % (Auto) Not Reportable Baso % (Auto) Not Reportable Total Counted 100 Seg Neutrophils % 79.0 H Band Neutrophils % 3.0 Lymphocytes % (Manual) 8.0 L Monocytes % (Manual) 5.0 Metamyelocytes % 5.0 H Neutrophils # (Manual) 25984 H RBC Morphology Not Reportable Anisocytosis 1+ H Target Cells 1+ H PT 19.9 H INR 1.8 H Sodium 134 L Potassium 4.0 Chloride 105.0 Carbon Dioxide 17.0 L BUN 15.0 Creatinine 0.40 L Estimated GFR > 60.0 BUN/Creatinine Ratio 37.5 H Glucose 104 H Calcium 8.1 L Assessment & Plan Plan: Plan: 1. Acute pulmonary embolism: Clinically stable. Full-dose Lovenox was initiated on the evening of 04/03/2018, stopped 04/11/2018 after 48 hr of therapeutic INR overlap on warfarin. Patient can follow with Dr. Cedillo at [facility] for outpatient monitoring. He should complete 90 day duration of oral anticoagulant therapy. Added aspirin 325 mg daily 04/11/2018 given significant thrombocytosis. Continue PPI for gastric protection. INR this morning was 1.9. We will increase Coumadin to 6 mg daily. Recheck INR in 3 days. 2. Aspiration pneumonia with acute hypoxic respiratory failure: Resolved. He is off of supplemental oxygen. Treated with Tygacil and metronidazole through 04/05/2018. He continues to have some aspiration when he gets tired so does well when he 1st starts swallowing but then as he swallows the patient does start aspirating this was reaffirmed by a modified barium swallow on April 18 per speech therapy they are continuing to work with him that he is doing better with eating 3. Depression: Adequate control. Significant situational component. Continue Abilify 5 mg daily. Zoloft was increased to 100 mg daily on 04/11/[address] Finney's psychiatric consultation. 4. 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 Taking food by mouth and on TPN. Managed by surgery. 5. Septic shock: Resolved. Antibiotics per surgery. Note elevated rising WBC and platelet counts unclear whether due to active infection or inflammation. However he is afebrile with a benign abdominal exam. [place] [address] this morning no fevers. Appreciate Hematology consultation. Continue monitor his cell counts. 6. Severe protein calorie malnutrition secondary to acute on chronic illness: He has improvement of his appetite and oral intake. Consider decrease TPN till nocturnal feeding only a as a supplement. Hopefully that will help improve his appetite. Continue monitor his nutritional status. 7. Dysphagia: Likely secondary to muscle weakness. Followed by speech pathology. He is currently on nectar thick liquid. 8. Disposition: Awaiting insurance approval for transfer to [place]. Patient would benefit from LTAC due to profound weakness, compromise and need for ongoing therapy and TPN. 9. Persistently elevated white count and platelet count. Possibly reactive due to the current acute medical problems sepsis that has resolved. Appreciate Hematology consultation. Continue monitor his cell counts. Quality VTE Deep Vein Thrombosis/Pulmonary Embolism Present on Admission: Yes
--- NOTE | 2018-04-16 15:34 | P.PN_ITS ---
Subjective Interval history: Collin is doing much better compared to when I last saw him about a week ago. He has improvement of his appetite. He is able to walk with assistance into the hallway. Is trying to establish daily routine Exam Vital Signs (past 8 hours): Vital Signs - 8 hr 3 04/16/18 08:24 Temperature 98.0 F Pulse Rate 117 H Respiratory Rate 18 Blood Pressure 115/73 Pulse Oximetry 98 Pulse Oximetry 98 Fraction of Inspired Oxygen 30 Oxygen Delivery Method Room Air Oxygen Flow Rate 0 Narrative Exam Narrative: General: Thin middle-aged man in no acute distress Lungs: Clear bilaterally Heart: Regular rate and rhythm Abdomen: Soft, wound is fairly clean with 80% granulation tissue. there is some slough underneath dressing. Active bowel sounds. Ostomy has normal output Extremities: No edema Objective Labs Result Diagrams: 04/16/18 06:00 04/16/18 06:00 Labs: Laboratory Results - last 24 hr 04/16/18 04/16/18 04/16/18 06:00 06:00 06:00 WBC 42.7 H* RBC 3.17 L Hgb 9.1 L Hct 27.6 L MCV 87.0 MCH 28.8 MCHC 33.1 RDW 17.6 H Plt Count 1304 H* Neut % (Auto) Not Reportable Lymph % (Auto) Not Reportable [place] % (Auto) Not Reportable Eos % (Auto) Not Reportable Baso % (Auto) Not Reportable Total Counted 100 Seg Neutrophils % 79.0 H Band Neutrophils % 3.0 Lymphocytes % (Manual) 8.0 L Monocytes % (Manual) 5.0 Metamyelocytes % 5.0 H Neutrophils # (Manual) 28025 H RBC Morphology Not Reportable Anisocytosis 1+ H Target Cells 1+ H PT 19.9 H INR 1.8 H Sodium 134 L Potassium 4.0 Chloride 105.0 Carbon Dioxide 17.0 L BUN 15.0 Creatinine 0.40 L Estimated GFR > 60.0 BUN/Creatinine Ratio 37.5 H Glucose 104 H Calcium 8.1 L Assessment & Plan Plan: Plan: 1. Acute pulmonary embolism: Clinically stable. Full-dose Lovenox was initiated on the evening of 04/03/2018, stopped 04/11/2018 after 48 hr of therapeutic INR overlap on warfarin. Patient can follow with Dr. Cedillo at [facility] for outpatient monitoring. He should complete 90 day duration of oral anticoagulant therapy. Added aspirin 325 mg daily 04/11/2018 given significant thrombocytosis. Continue PPI for gastric protection. INR this morning was 1.9. We will increase Coumadin to 6 mg daily. Recheck INR in 3 days. 2. Aspiration pneumonia with acute hypoxic respiratory failure: Resolved. He is off of supplemental oxygen. Treated with Tygacil and metronidazole through 04/05/2018. He continues to have some aspiration when he gets tired so does well when he 1st starts swallowing but then as he swallows the patient does start aspirating this was reaffirmed by a modified barium swallow on April 18 per speech therapy they are continuing to work with him that he is doing better with eating 3. Depression: Adequate control. Significant situational component. Continue Abilify 5 mg daily. Zoloft was increased to 100 mg daily on [address] Finney's psychiatric consultation. 4. 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 Taking food by mouth and on TPN. Managed by surgery. 5. Septic shock: Resolved. Antibiotics per surgery. Note elevated rising WBC and platelet counts unclear whether due to active infection or inflammation. However he is afebrile with a benign abdominal exam[place] [address] this morning no fevers. Appreciate Hematology consultation. Continue monitor his cell counts. 6. Severe protein calorie malnutrition secondary to acute on chronic illness: He has improvement of his appetite and oral intake. Consider decrease TPN till nocturnal feeding only a as a supplement. Hopefully that will help improve his appetite. Continue monitor his nutritional status. 7. Dysphagia: Likely secondary to muscle weakness. Followed by speech pathology. He is currently on nectar thick liquid. 8. Disposition: Awaiting insurance approval for transfer to [facility]. Patient would benefit from LTAC due to profound weakness, compromise and need for ongoing therapy and TPN. 9. Persistently elevated white count and platelet count. Possibly reactive due to the current acute medical problems sepsis that has resolved. Appreciate Hematology consultation. Continue monitor his cell counts. Quality VTE Deep Vein Thrombosis/Pulmonary Embolism Present on Admission: Yes
[2018-04-16 15:40] VITALS: BP 111/75; PULSE 119; RESP 18; TEMP 37.1; O2SAT 100
--- NOTE | 2018-04-16 15:47 | PC.NURSE ---
Addendum entered by Ritchie Roy R.N. 04/16/18 22:04: Patient req. to get out of bed and walk in halls. Patient walked around entire floor of AC. Patient is now sitting at nursing station talking w/ staff. Patient tolerated walk well, w/ minimal SOB and one rest stop. Original Note: patient is A&O x3 pleasant and talkative today, patients disposition and demeanor has improved today. States he has had a busy day patient is agreeable to get up for a walk this lexii but is refusing to get up to chair for dinner. Patient denies any pain but states some intermid. cramping in abd. w/ coughing that is tolerable. Blinds were raised for patient in room, encouraged to get up and do more through day and participate in care of self. Call light w/ in reach, bed in low pos. alarm is active.
--- NOTE | 2018-04-16 16:43 | PT.IPTN ---
Current Diagnoses Sepsis, unspecified organism (03/22/18) Hypocalcemia (03/22/18) Hypokalemia (03/22/18) Major depressive disorder, single episode, unspecified (03/22/18) Other pulmonary embolism without acute cor pulmonale (03/22/18) Chronic pulmonary edema (03/22/18) Acute postprocedural respiratory failure (03/22/18) Ulcerative colitis, unspecified, without complications (03/22/18) Perforation of intestine (nontraumatic) (03/22/18) Shortness of breath (03/22/18) Severe sepsis with septic shock (03/22/18) Physical Therapy Treatment Note M2 PT-IP Current Condition Start: 03/28/18 17:17 Freq: NEEDED Status: Active Protocol: Document 04/01/18 15:10 RCC (Rec: 04/01/18 16:30 RCC [email or web address]) Physical Therapy Current Condition Current Condition Evaluation Date 03/28/18 Treatment Diagnosis post-op colectomy for perforated bowel Onset Date 03/22/18 Post Operative Precautions Abdominal Surgery Precautions Log Roll Lifting Restrictions Gait Belt above Incisional Area Other Precautions contact precautions: 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 Therapy Pain Assessment Pain Present Pain Present Denied Pain M4 PT-IP Mobility and Gait Start: 03/28/18 17:17 Freq: NEEDED Status: Active Protocol: Document 04/16/18 14:30 GGD (Rec: 04/16/18 16:42 GGD [id number]) PT-Bed Mobility Assessment Rolling Type of Rolling Log Rolling Level of Assist Standby Assistance Supine to Sit Supine to Sit Standby Assistance Sit to Supine Sit to Supine Standby Assistance Scooting Scooting to Edge of Bed Independent Scooting Up and Down in Bed Independent PT-Transfer Assessment Sit to and From Stand Sit to and from Stand Standby Assistance Equipment Transfer Assistive Device None Gait Belt Gait Assessment Gait Gait Assistance Required: Standby Assistance Distance (Feet) (feet) 690 Assistive Devices Assistive Device Gait Belt 4 Wheeled Walker Factors Limiting Gait Function Factors Limiting Gait Function Decreased Activity Tolerance Decreased Strength Comments Gait Comments Pt need on seated rest break and two standing rest breaks during gait. Protocol: Document 04/16/18 14:30 GGD (Rec: 04/16/18 16:42 GGD [id number]) Physical Therapy Treatment Exercises Exercises Ankle Pumps Seated Knee Flexion/Extension Other Treatments Other Treatment Performed Marching and standing balance with WBOS and EC M7 PT-IP Assessment and Plan Start: 03/28/18 17:17 Freq: NEEDED Status: Active Protocol: Document 04/16/18 14:30 GGD (Rec: 04/16/18 16:42 GGD [id number]) PT Summary Assessment and Plan Summary Assessment Summary Pt improving tolerance to activity. He needs 4WW for fatique. He had fair balance without 4WW Treatment Plan Physical Therapy Treatment Plan Gait Training Therapeutic Exercise Balance Retraining Discharge Planning Other Recommendations and Next Treatment spread out OT and PT sessions Focus or co-treat, work with nursing to establish a schedule for activity. Pt needs structure! Recommendations To Nursing Amount of Assist Needed 1 Person Assist Discharge Recommendations PT Discharge Recommendations Home with Assistance Home Health
[2018-04-16] MEDS: ACETAMINOPHEN SUSP 650 MG/20.3 ML UDC PO (16:58)
[2018-04-16] MEDS: WARFARIN 3 MG TABLET 6 MG PO (16:59)
[2018-04-16] MEDS: ERYTHROMYCIN OPHTH 1 GM OINT 1 APPLIC EYE-RIGHT ×2 (16:59→20:39)
--- NOTE | 2018-04-16 18:26 | OT.IP.TRT ---
Current Diagnoses Sepsis, unspecified organism (03/22/18) Hypocalcemia (03/22/18) Hypokalemia (03/22/18) Major depressive disorder, single episode, unspecified (03/22/18) Other pulmonary embolism without acute cor pulmonale (03/22/18) Chronic pulmonary edema (03/22/18) Acute postprocedural respiratory failure (03/22/18) Ulcerative colitis, unspecified, without complications (03/22/18) Perforation of intestine (nontraumatic) (03/22/18) Shortness of breath (03/22/18) Severe sepsis with septic shock (03/22/18) Occupational Therapy Treatment Note M2 OT-IP Current Condition Start: 04/07/18 15:30 Freq: Status: Active Protocol: Document 04/11/18 12:29 ADH (Rec: 04/11/18 12:43 ADH [email or web address]) Occupational Therapy Current Condition Current Condition Evaluation Date 04/07/18 Treatment Diagnosis decreased BUE/hand strength, endurance and self care skills Diagnosis Onset Date 03/22/18 Post Operative Precautions Abdominal Surgery Precautions Log Roll Lifting Restrictions Gait Belt above Incisional Area Other Precautions open abdominal incision with wet to dry dressings and new ileostomy M3 OT- IP Subjective and Pain Start: 04/07/18 15:30 Freq: Status: Active Protocol: Document 04/16/18 18:15 PJM (Rec: 04/16/18 18:26 PJM [id number]) OT- Subjective Occupational Therapy Visit Type Type Treatment Note Visit Start Time 09:20 Visit Stop Time 10:02 Total Visit Minutes 42 Notes Pt awake and alert in bed; agreeable to tx with encouragement. Occupational Therapy Visit Comments Patient Comments I am so tired. Patient/Caregiver Goals to go home OT Pain Assessment Pain When Pain Assessed After Treatment Pain Present Pain Present Denied Pain M4 OT- IP ADL's Start: 04/07/18 15:30 Freq: Status: Active Protocol: Document 04/16/18 18:15 PJM (Rec: 04/16/18 18:26 PJM [id number]) OT ADL-Grooming General Evaluation Grooming Ability Standby Assistance Comments OT Grooming Comments Pt stood 2 min at sink to wash face, then requested to sit on 4WW to complete oral care seated. Fair thoroughness for oral care. OT ADL-Oral Care General Eval Oral Care Ability Standby Assistance Devices Oral Care Devices Toothbrush OT ADL-Toileting General Evaluation Toileting Ability Standby Assistance Comments OT Toileting Comments Pt needs SBA and mod verbal cues to release gas for ostomy bag with RN in room supervising. Dsicussed with pt /RN to establish goal of independent osotmy bag management here. M5 OT- IP IADL's Start: 04/07/18 15:30 Freq: Status: Active Protocol: Document 04/07/18 15:26 PJ (Rec: 04/07/18 15:50 PJ [id number]) OT-Instrumental Activities of Daily Living Deficits IADL Deficits Identified Deficits Home Safety Awareness Awareness of Need for Assistance at Home Decreased Awareness Meal Preparation Meal Preparation Comments total assist on modified diet at present, DMA w/nectar thicks Hat [employer] Cutter Hand [employer] Cutter Hand Comments Total assist Driving Driving Comments pt unable to drive at present M6 OT- IP Functional Cognition Start: 04/07/18 15:30 Freq: Status: Active Protocol: Document 04/14/18 10:00 CCC (Rec: 04/14/18 11:31 [facility] [id number]) Cognitive Factors Limiting Selfcare Function Cognitive Ability Level of Alertness Alert Attention Span Ability Capable of Focused Attention Capable of Sustained Attention Safety Awareness Underestimates Need for Assistance M7 OT- IP Mobility and Balance Start: 04/07/18 15:30 Freq: Status: Active Protocol: Document 04/16/18 18:15 PJM (Rec: 04/16/18 18:26 [facility] [id number]) OT- Bed Mobility Assessment Rolling Level of Assistance Standby Assistance Head of Bed Elevated Supine to Sit Supine to Sit Assist Standby Assistance Head of Bed Elevated Sit to Supine Sit to Supine Assist Standby Assistance Head of Bed Elevated Scooting Scooting to Edge of Bed Standby Assistance Head of Bed Elevated OT-Transfer Assessment Sit to and From Stand Sit to and from Stand Standby Assistance Devices Transfer Assistive Devices 4 Wheeled Walker OT- Gait Assessment Gait Gait Assistance Required: Contact Guard Assist Assistive Devices Assistive Device Gait Belt 4 Wheeled Walker Comments Gait Ability Comments Pt ambulated to sink then after seated rest, ambulated loop around [facility] RN station. Pt moves quickly, needs cues for pacing and tends to weave from side to side in hallway. HR 118 at rest , 135 after walk. Pt asymptomatic except for fatigue. RN aware of HR. OT- Balance Assessment Sitting Balance and Reactions Static Sitting Balance Ability Good Standing Balance and Reactions Static Standing Balance Ability Good M8 OT- IP Objective Assessments Start: 04/07/18 15:30 Freq: Status: Active Protocol: Document 04/09/18 17:27 PJM (Rec: 04/09/18 17:38 PJM [id number]) OT Strength Comments Strength Comments Pt seen for education re: light blue theraband ex for 5 reps unilateral shldr flex, 5 reps bilateral horiz abduction , 5 reps biceps curls. Pt also educated re; red theraputty for 10 reps mass finger flex and 5 reps finger ext. M9 OT- IP Assessment and Plan Start: 04/07/18 15:30 Freq: Status: Active Protocol: Document 04/16/18 18:15 PJM (Rec: 04/16/18 18:26 PJM [id number]) OT Summary Assessment and Plan Potential Rehabilitation Potential Fair Summary OT Impairments Strength Balance Functional Mobility Toileting Bathing Shower Transfers Progress Towards Goals Slow Progress due to Medical Issues Assessment Summary Pt has limited standing tolerance for grooming at sink and needs mod verbal cues for thoroughness with self care tasks. Needs encouragement to increase activity OOB. Affect remains flat, but participates with encouragement. Goal update completed below. D/C plan continues to be LTAC due to current medical complexities per chart notes. Goals Self-Feeding Goal Independent Grooming Goal Independent Dressing Goal Independent Toileting Goal Independent Bathing Goal Standby Assistance Toilet Transfer Goal Independent Shower Transfer Goal Standby Assistance OT-Other Goals Pt to demonstrate good thoroughness and safety awareness during all self care and functional mobility. Pt to be independent with ostomy care with good thoroughness. Frequency of Treatment Frequency Of Treatment Once a Day Treatment Plan OT Treatment Plan ADL Training Functional Mobility Discharge Planning Other Treatment Recommendations and Next Shower FRI, RN will cover Treatment Focus abdominal dressing Discharge Recommendations OT Discharge Recommendations LTAC
[2018-04-16] MEDS: FAT EMULSIONS 50 GM/250 ML EMULSION IV (19:22)
[2018-04-16] MEDS: [UNRECOGNIZED DRUG - REMARK] 67.319 ML IV (19:22)
[2018-04-16 23:45] VITALS: BP 119/75; PULSE 117; RESP 18; TEMP 37.1; O2SAT 99
--- NOTE | 2018-04-17 | DI.RAD.S_ITS ---
PROCEDURE: XR CHEST 1V INDICATIONS: shortness of breath and possible aspiration TECHNIQUE: One view of the chest was acquired. COMPARISON: [facility], CR, XR CHEST 1V, 04/06/2018, 20:04. FINDINGS: Surgical changes and devices: Left-sided PICC line has been removed and a right-sided PICC line placed with tip overlying the distal SVC.. Lungs and pleura: Bilateral interstitial infiltrates have markedly improved. Mild vertical stranding density at the left base compatible with atelectasis. No pneumothorax. Small bilateral pleural effusions. Mediastinum: Mediastinal contours appear normal. Heart size is normal. Bones and chest wall: No suspicious bony lesions. Overlying soft tissues appear unremarkable. IMPRESSION: Nearly complete resolution of bilateral interstitial pneumonia since last exam. Small bilateral pleural effusions remain. Dictated by: Jaxson Levi M.D. on 04/17/2018 at 14:26 Approved by: Jaxson Levi M.D. on 04/17/2018 at 14:29
[2018-04-17] MEDS: LORazepam 2 MG/ML SYRINGE 1 MG IV (02:21)
[2018-04-17] MEDS: PANTOPRAZOLE 40 MG TABLET PO (06:02)
[2018-04-17 09:00] VITALS: BP 112/76; PULSE 111; RESP 28; O2SAT 99
[2018-04-17] MEDS: MEGESTROL 20 MG TABLET 40 MG PO ×2 (09:12→21:16)
[2018-04-17] MEDS: SERTRALINE 50 MG TABLET 100 MG PO (09:12)
[2018-04-17] MEDS: ASPIRIN EC 325 MG TABLET PO (09:12)
[2018-04-17] MEDS: DRONABINOL 2.5 MG CAPSULE PO ×3 (09:12→21:16)
[2018-04-17] MEDS: ERYTHROMYCIN OPHTH 1 GM OINT 1 APPLIC EYE-RIGHT ×4 (09:12→21:16)
[2018-04-17] MEDS: MULTIVIT,CALC,MINS/IRON/FOLIC 1 TABLET 1 TAB PO (09:12)
[2018-04-17] MEDS: ARIPiprazole 10 MG TABLET 5 MG PO (09:12)
[2018-04-17] MEDS: SODIUM CHLORIDE 0.9% FLUSH 10 ML IV ×3 (09:13→21:17)
--- NOTE | 2018-04-17 11:48 | P.PN_ITS ---
Subjective Interval history: Collin is doing much better compared to when I last saw him about a week ago. He has improvement of his appetite. He is able to walk with assistance into the hallway. Is trying to establish daily routine. He is definitely participating more. According to the calorie count, he ate almost 1600 calories yesterday. I have already spoken to pharmacy about decreasing his TPN. Unfortunately, he suffering with pink eye today in his right eye. There is also some concern that he may be aspirating again. A chest x-ray has been ordered. Exam Vital Signs (past 8 hours): Pulse Oximetry 99 Fraction of Inspired Oxygen 30 Oxygen Delivery Method Room Air Oxygen Flow Rate 0 Narrative Exam Narrative: A little flat and somewhat uncomfortable secondary to his eye. Abdomen: Soft, appropriately tender, granulation bed is coming along nicely. A couple of small areas of fibrinous exudate and 1 tiny eschar. The should all come off with continued down to dry dressings. We are currently doing that twice a day we will continue. Objective Labs Result Diagrams: 04/16/18 06:00 04/16/18 06:00 Assessment & Plan Plan: Plan: We will plan to start Clinimax at 40 mL per hour this evening. If the chest x- ray shows aspiration, we may have to continue the current TPN. He is getting stronger every day and walking more and participating more. Things are moving in the right direction although progress is slow. Quality VTE Deep Vein Thrombosis/Pulmonary Embolism Present on Admission: Yes
--- NOTE | 2018-04-17 12:13 | OT.IP.TRT ---
Current Diagnoses Sepsis, unspecified organism (03/22/18) Hypocalcemia (03/22/18) Hypokalemia (03/22/18) Major depressive disorder, single episode, unspecified (03/22/18) Other pulmonary embolism without acute cor pulmonale (03/22/18) Chronic pulmonary edema (03/22/18) Acute postprocedural respiratory failure (03/22/18) Ulcerative colitis, unspecified, without complications (03/22/18) Perforation of intestine (nontraumatic) (03/22/18) Shortness of breath (03/22/18) Severe sepsis with septic shock (03/22/18) Occupational Therapy Treatment Note M2 OT-IP Current Condition Start: 04/07/18 15:30 Freq: Status: Active Protocol: Document 04/17/18 11:45 ADH (Rec: 04/17/18 12:13 ADH [id number]) Occupational Therapy Current Condition Current Condition Evaluation Date 04/07/18 Treatment Diagnosis decreased BUE/hand strength, endurance and self care skills Diagnosis Onset Date 03/22/18 Post Operative Precautions Abdominal Surgery Precautions Log Roll Lifting Restrictions Gait Belt above Incisional Area Other Precautions open abdominal incision with wet to dry dressings and new ileostomy M3 OT- IP Subjective and Pain Start: 04/07/18 15:30 Freq: Status: Active Protocol: Document 04/17/18 11:45 ADH (Rec: 04/17/18 12:13 ADH [id number]) OT- Subjective Occupational Therapy Visit Type Type Progress Note Visit Start Time 09:08 Visit Stop Time 09:55 Total Visit Minutes 47 Notes Pt agreeable to OT services at regularly scheduled times, agreeable to planned shower Occupational Therapy Visit Comments Patient Comments I don't want to do this--I'm too tired Patient/Caregiver Goals d/c home OT Pain Assessment Pain When Pain Assessed During Mobility Pain Present Pain Present Denied Pain M4 OT- IP ADL's Start: 04/07/18 15:30 Freq: Status: Active Protocol: Document 04/17/18 11:45 ADH (Rec: 04/17/18 12:13 ADH [id number]) OT ADL-Grooming General Evaluation Grooming Ability Independent Areas Needing Assistance Retrieving/Set-up of Grooming Items OT ADL-Dressing General Eval Upper Body Dressing Ability Contact Guard Assistance Lower Body Dressing Ability Contact Guard Assistance Areas Needing Assistance Retrieving/Set-up of Clothing Comments OT Dressing Comments Pt prefers to don/doff LB clothing seated, lifting alternate hips. Pt with good performance, needing A only for tie at back of neck. Pt fatigued after shower, requesting to rest before completing dressing task. Pt only able to don gown and socks before needing to lie down, reported he will don pants and brief in bed after a rest. OT ADL-Bathing General Evaluation Bathing Ability Standby Assistance Areas Needing Assistance Retrieving/Setting Up Items Wash/Dry Back Comments OT Bathing Comments Pt able to complete seated bathing task with SBA, s/u of all items and A to dry back. Pt fatigued with task, heart rate increased to 127, with respiratory rates of 40/min. Pt able to pace self during task, and motivated to participate. M5 OT- IP IADL's Start: 04/07/18 15:30 Freq: Status: Active Protocol: Document 04/07/18 15:26 PJM (Rec: 04/07/18 15:50 PJM [id number]) OT-Instrumental Activities of Daily Living Deficits IADL Deficits Identified Deficits Home Safety Awareness Awareness of Need for Assistance at Home Decreased Awareness Meal Preparation Meal Preparation Comments total assist on modified diet at present, DMA w/nectar thicks Horseradish Maker Horseradish Maker Comments Total assist Driving Driving Comments pt unable to drive at present M6 OT- IP Functional Cognition Start: 04/07/18 15:30 Freq: Status: Active Protocol: Document 04/14/18 10:00 CCC (Rec: 04/14/18 11:31 CCC [email or web address]) Cognitive Factors Limiting Selfcare Function Cognitive Ability Level of Alertness Alert Attention Span Ability Capable of Focused Attention Capable of Sustained Attention Safety Awareness Underestimates Need for Assistance M7 OT- IP Mobility and Balance Start: 04/07/18 15:30 Freq: Status: Active Protocol: Document 04/17/18 11:45 ADH (Rec: 04/17/18 12:13 ADH [id number]) OT- Bed Mobility Assessment Supine to Sit Supine to Sit Assist Standby Assistance Sit to Supine Sit to Supine Assist Standby Assistance OT-Transfer Assessment Sit to and From Stand Sit to and from Stand Standby Assistance Transfers Transfer Ability Standby Assistance Technique Transfer Destination Shower Stall Devices Transfer Assistive Devices 4 Wheeled Walker OT- Gait Assessment Gait Gait Assistance Required: Standby Assistance Assistive Devices Assistive Device Gait Belt 4 Wheeled Walker OT- Balance Assessment Sitting Balance and Reactions Static Sitting Balance Ability Good Dynamic Sitting Balance Ability Good Standing Balance and Reactions Static Standing Balance Ability Good Dynamic Standing Balance Ability Good M8 OT- IP Objective Assessments Start: 04/07/18 15:30 Freq: Status: Active Protocol: Document 04/09/18 17:27 PJM (Rec: 04/09/18 17:38 PJM [id number]) OT Strength Comments Strength Comments Pt seen for education re: light blue theraband ex for 5 reps unilateral shldr flex, 5 reps bilateral horiz abduction , 5 reps biceps curls. Pt also educated re; red theraputty for 10 reps mass finger flex and 5 reps finger ext. M9 OT- IP Assessment and Plan Start: 04/07/18 15:30 Freq: Status: Active Protocol: Document 04/17/18 11:45 ADH (Rec: 04/17/18 12:13 ADH [id number]) OT Summary Assessment and Plan Summary OT Impairments Strength Progress Towards Goals Slow Progress due to Medical Issues Slow Progress due to Activity Tolerance Assessment Summary Pt with slow steady progress with self-care, with positive encouragement. Pt cont to benefit from scheduled sessions, so he can rest and prepare. Pt often limiting self-care performance d/t poor activity tolerance and endurance/strength.
--- NOTE | 2018-04-17 13:56 | ST.IPTN ---
BATCH WEIGHER Dysphagia Treatment BATCH WEIGHER Dysphagia Treatment Start: 04/06/18 13:05 Freq: Status: Active Protocol: Document 04/17/18 13:26 MRM (Rec: 04/17/18 13:46 MRM [id number]) Dysphagia Treatment Session Time Visit Start Time 12:20 Visit Stop Time 13:10 Total Visit Minutes 50 Setting Assessment Location Acute Care Visit Type Note Type Treatment Note Next Note Type Next Note Type Treatment Note Patient Information Identification Type Name Subjective Observations Patient resting in bed. Complained of level 6 pain in his right eye (stabbing pain). BATCH WEIGHER relayed information to Stephani MARK, to inform Kylee HOLLIS. Patient seen with lunch tray. He has been observed wt staff to have increased coughing in general, but it has also been noticed with meals. He has also demonstrated noncompliance with swallow precautions ( eating/drinking while reclined , no chin tuck, large bites/ sips with no additional swallows). When reminded, he verbalizes understanding and then stops eating/drinking because he says he is to tired to do the exercises. Dr Martinez plans to order a chest xray to monitor the patient's lung status due to his continued elevated WBC count. Per care management, Remy Bai has approved the patient's stay in the hospital , but his chance to discharge to LTAC does not look promising. A care team meeting is scheduled at 1400 today in order to discuss future care plans for the patient. Treatment Liquids Trialed Thin Solids Trialed Mechanical Soft Administration Type Cup Single Sip Self-Feeding Oral Strategies Upright at 90 degrees Double Swallow Controlled Bite/Sip Size Alternate Liquids/Solids Pharyngeal Phase Strategies Sitting Upright (90 deg) Chin Tuck Double Swallow Effortful Swallow Small Bites and Sips Alternate Liquids/Solids Treatment Activities Trials of thin liquid via cup and mechanical soft textures were administered. The patient was independent in all intake . BATCH WEIGHER repeatedly repositioned the patient to keep him upright, despite his frequent postural reclining. He was able to demonstrate adequate chin tuck and postural maintenance for safe intake, however, independent compliance with this is inconsistent. BATCH WEIGHER reinforced the importance of consistent compliance with dysphagia strategies in order to continue to improve in overall status. Patient verbalized understanding. Assessment Patient Response to Treatment Fair Rehab Potential Good Assessment of Improvement Patient continues to tolerate current diet of thin liquids and mechanical soft textures independently. When reminded from staff, he is successful in sitting upright at 90 degress, performing a chin tuck and implementing a double swallow. These precautions were recommended after been seen to successfully prevent aspiration during an MBS performed on 04/13/18. However, he continues to be noncompliant with these strategies when independently eating with and without staff in the room. BATCH WEIGHER has repeatedly stressed the importance of following these steps in order to prevent possible aspiration, most likely silent in nature secondary to observations made on 04/13/18 in the MBS, but he continues to demonstrate noncomplaince. As a result, a repeat chest xray will be ordered by Dr Martinez and 1:1 supervision for all intake will be requested in order to improve the patient's safety during PO intake. Continue current diet with further encouragement of implementation of safe swallowing strategies. If coughing or decreased vocal qualtiy is observed, encourage throat clear/cough + double swallow until resolved. Frequent rest periods in order to maintain endurance for proper management of swallow precuations throughout intake. BATCH WEIGHER worked with the patient to identify biofeedback regarding vocal qualtiy/ respiratory quality in order to improve his understanding of when he needs to use these specific strategies (Ex: How does your voice sound? Why? What does it mean when your voice sounds wet? How can that affect you? What can you do to avoid that?) The patient was able to demontrate understanding of how swallowing can cause aspiration/reduce his vocal qualtiy, how to identify symptoms of this, state how positioning can impact swallowing safety, and why a chin tuck/double swallow has been stressed. He verbalized reasoning to all of this and stated understanding. However, he then said that he was too tired to do all of that and would rather stop eating. BATCH WEIGHER relayed this information to RNKylee, and Dr Martinez. This will also be discussed in the care team meeting at 1400 . Diet Recommendations Recommendations Continue Current Diet Liquids Order Thin Diet Order Mechanical Soft Medication Recommendations As Tolerated One at a Time Additional Dietary Needs 1:1 Supervision Aspiration Precautions Recommended Precautions Upright at 90 Degrees Alternate Liquids/Solids Frequent Rest Periods Small Bites/Sips Chin Tuck Effortful Swallow Double Swallow Additional Precautions Monitor vocal quality Treatment Plan Placement Recommendation after Discharge Inpatient Rehab Facility Appropriate for Continued Therapy Yes Therapy Recommendations Patient will comprehend education regarding swallow and implement necessary behaviors to improve swallow function. Meeting goal (04/17/18) Mandatory double swallow/ effortful swallow/chin tuck in order to prevent aspiration. Verbalizes understanding, but not consistent with compliance (04/17/18) Monitor lungs. Dr Martinez to order a chest xray (04/17/18) Care team meeting to discuss patient's plan of care Dysphagia Goals Pt will safely tolerate the least-restrictive diet without aspiration. Meeting goal (04/17/18) Pt will implement safe swallow strategies to reduce aspiration risk. Meeting goal with slow progress, needs multiple reminders for consistency; add 1:1 assistance to further support his compliance () Pt will receive education and training regarding aspiration risk and demonstrate verbal understanding. Goal Met (04/16/18)5
--- NOTE | 2018-04-17 15:01 | DIET.PN ---
Calorie count paperwork for [facility] today (April 10) not found in folder, pt's room, or at nurse's station. TPN has already been decreased to 1000mL 4.25/25 Clinimix, though given his intake of several sugar-sweetened beverages QD over the last few days, 250g dextrose from Clinimix may be too high (hence RDs' recommendation yesterday for 125 g dextrose QD in new TPN Rx). May Ziegler, internal affairs commander Shante Packer, MS, RD/LDN, CDE
[2018-04-17 16:00] VITALS: BP 119/70; PULSE 109; RESP 18; TEMP 36.9; O2SAT 100
--- NOTE | 2018-04-17 16:00 | CM.DPC ---
Care Conference: Called Cleopatra: Remy Auth is most likely not coming. Savana spoke with supervisor fertilizer processing who stated they never have been able to obtain auth from [facility]. SW left voicemail for [facility] [employer] termite control service representative Brielle at [phone]. Called Remy/MINA:Chetan ([phone] ext [phone]): She stated an auth was never requested and that they do not have an ???LTAC Auth??? process because they are not contracted with LTACs. If auth would have come it would have went to SNFs for approval, but they do not have any requested. Follow up with Cleopatra/Savana who believes that [facility] dismisses all LTAC auths request. Called from [facility] practical ministries professor/Shante Gutierrez ([phone]): They would like to come up with a better discharge plan besides LTAC. Care conference held with Alvin (on speaker phone), Dr Martinez, COORDINATOR CARDIOPULMONARY SERVICES/Francine and COORDINATOR CARDIOPULMONARY SERVICES student, CERTIFIED NEURODIAGNOSTIC TECHNOLOGIST/Liz, OTR/Rupa, CM Dept, EMANUEL/Shahida, and RN/Kylee. Patient???s goal remain discharging home. Patient has declined PEG and wound vac. Patient is non-motivated in self-care or therapy. TPN was decreased to allow for more oral intake with concern that patient is aspirating. Thoughts are that patient???s depression is interfering with his motivation but patient has been adamant with his hopes to live. Patient???s antidepressants were recently increased following Psych consult. Goals following CC: 1-Decrease TPN. 2-MD to have another conversation with patient on wound vac. 3-Complete Chest Xray to determine if patient is aspirating. Depending on Xray conversation regarding peg tube may need to be held? 4-Remy/Shante will follow up with supervisor fertilizer processing for recommendations on discharge plan. Possible SNF that will accept TPN if Remy will carve out additional rates for this coverage? Remy will also follow up on a possible ???swing bed??? transfer to [place]? Plan: Pending. TPN remains a barrier for SNF vs LTAC needs.
--- NOTE | 2018-04-17 16:09 | PM.PN.1 ---
Subjective Date Patient Seen: 04/17/18 Time Patient Seen: 14:15 Interval history: Patient feels a little bit tired today. He thought he ???over did it??? yesterday. Nursing has noticed coughing when he eats and drinks. He also was noticed to be tachypneic. There was concern of possible aspiration. Speech pathologist has evaluated him. He was noted not compliant with speech pathologist's recommendation. He does not think he has a problem with aspiration. Exam Vital Signs (past 8 hours): Vital Signs - 8 hr 04/17/18 09:00 Pulse Rate 111 H Respiratory Rate 28 H Blood Pressure 112/76 Pulse Oximetry 99 Pulse Oximetry 99 Fraction of Inspired Oxygen 30 Oxygen Delivery Method Room Air Oxygen Flow Rate 0 Narrative Exam Narrative: General: Thin middle-aged man in no acute distress Lungs: Clear bilaterally Heart: Regular rate and rhythm Abdomen: Soft, wound is fairly clean with 80% granulation tissue. there is some slough underneath dressing. Active bowel sounds. Ostomy has normal output Extremities: No edema Neuro: Alert and oriented x3 Objective Imaging Chest x-ray: Radiologist's impression: Nearly complete resolution of bilateral interstitial pneumonia since last exam. Small bilateral pleural effusions remain. Labs Result Diagrams: 04/16/18 06:00 04/16/18 06:00 Assessment & Plan Plan: Plan: 1. Acute pulmonary embolism: Clinically stable. Full-dose Lovenox was initiated on the evening of 04/03/2018, stopped 04/11/2018 after 48 hr of therapeutic INR overlap on warfarin. Patient can follow with Dr. Cedillo at [facility] for outpatient monitoring. He should complete 90 day duration of oral anticoagulant therapy. Added aspirin 325 mg daily 04/11/2018 given significant thrombocytosis. Continue PPI for gastric protection. INR on 04/16/18 was 1.9. Coumadin doese was increased to 6 mg daily. Recheck INR in 2 days. 2. Aspiration pneumonia with acute hypoxic respiratory failure: He is off of supplemental oxygen. He was treated with Tygacil and metronidazole through 04/05/2018. He continues to have some aspiration when he gets tired so does well when he 1st starts swallowing but then as he swallows the patient does start aspirating this was reaffirmed by a modified barium swallow on April 18 per speech therapy they are continuing to work with him. He is not compliant with speech pathologist's recommendation due to weakness 3. Depression: Still not adequately controlled. Significant situational component. Continue Abilify 5 mg daily. Zoloft was increased to 100 mg daily on 04/11/[address] Finney's psychiatric consultation. 4. 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 Taking food by mouth and on TPN. Managed by surgery. 5. Septic shock: Resolved. Antibiotics per surgery. Note elevated rising WBC and platelet counts unclear whether due to active infection or inflammation. However he is afebrile with a benign abdominal exam[place] [address] this morning no fevers. Appreciate Hematology consultation. Continue monitor his cell counts. 6. Severe protein calorie malnutrition secondary to acute on chronic illness: He has improvement of his appetite and oral intake. Consider decrease TPN to nocturnal feeding only as a supplement. Hopefully that will help improve his appetite. Continue monitor his nutritional status. 7. Dysphagia: Likely secondary to muscle weakness. Followed by speech pathology. He is currently on nectar thick liquid. He is at risk for repeat aspiration pneumonia. 8. Disposition: Awaiting insurance approval for transfer to [place]. We had a care conference with PT, OT, speech pathologist, adult protective caseworker, nursing staff regarding to his care. Patient would benefit from LTAC due to profound weakness, compromise and need for ongoing therapy and TPN. He also has large anterior abdominal wound that needs wound care and dressing changes daily. 9. Persistently elevated white count and platelet count. Possibly reactive due to the current acute medical problems sepsis that has resolved. Appreciate Hematology consultation. Continue monitor his cell counts. Quality VTE Deep Vein Thrombosis/Pulmonary Embolism Present on Admission: Yes
[2018-04-17] MEDS: OXYCODONE IR 5 MG TABLET PO (16:50)
[2018-04-17] MEDS: WARFARIN 3 MG TABLET 6 MG PO (16:50)
[2018-04-17] MEDS: LYTES IV (18:16)
[2018-04-17] MEDS: CALCIUM IV (18:16)
[2018-04-17] MEDS: [UNRECOGNIZED DRUG - OTHER] IV (18:16)
[2018-04-17] MEDS: MULTIVITAMIN IV (18:16)
[2018-04-17] MEDS: DEXT IV (18:16)
[2018-04-17] MEDS: TRACE ELEMENTS IV (18:16)
[2018-04-18 01:00] VITALS: BP 119/72; PULSE 114; RESP 19; TEMP 36.9; O2SAT 99
[2018-04-18] MEDS: LORazepam 2 MG/ML SYRINGE 1 MG IV ×2 (01:36→22:19)
[2018-04-18 05:43] LABS: Hematocrit 27.5 % (41-53); Hemoglobin 8.9 g/dL (13.5-17.5); Mean Corpuscular HGB Conc 32.5 % (30-36); Mean Corpuscular Hemoglobin 28.2 PG (26-34); Mean Corpuscular Volume 86.5 fL (80-100); Red Blood Cell Count 3.18 X10^6/uL (4.5-5.9); Red Cell Distribution Width 17.4 % (11.6-14.8)
[2018-04-18 05:54] LABS: Alanine Aminotransferase 88 IU/L (21-72); Albumin Globulin Ratio 0.7 (1.0-2.8); Alkaline Phosphatase 401 U/L (38-126); Aspartate Aminotransferase 52 IU/L (17-59); Bilirubin Total 0.3 mg/dL (0.2-1.3); Calcium 8.2 mg/dL (8.4-10.2); Estimated Glomerular Filt Rate > 60.0 mL/min (>60); Globulin 4.5 g/dL (1.7-4.1); Glucose 132 mg/dL (70-100); HEMOLYSIS < 15 (0-50); Magnesium 1.7 mg/dL (1.6-2.3); Potassium 3.9 mmol/L (3.4-5.1); Sodium 133 mmol/L (137-145); Total Protein 7.5 g/dL (6.3-8.2)
[2018-04-18 05:55] LABS: Add Manual Diff / Slide Review YES; Platelet Count 1232 X10^3/uL (150-400)
[2018-04-18 06:23] LABS: Thyroid Stimulating Hormone 2.19 uIU/mL (0.47-4.68)
[2018-04-18] MEDS: INSULIN ASPART 100 UNIT/ML INSULN PEN SUBCUT ×2 (06:37→06:52)
[2018-04-18] MEDS: PANTOPRAZOLE 40 MG TABLET PO (06:38)
[2018-04-18 06:55] LABS: Neutrophils Absolute Manual 26640 /uL (3000-5900); Total Cells Counted 100
[2018-04-18 06:57] LABS: Anisocytosis 1+; Burr Cells 1+
[2018-04-18 06:59] LABS: Platelet Morphology Comment INCREASED PLTS
[2018-04-18] MEDS: SERTRALINE 50 MG TABLET 100 MG PO (09:02)
[2018-04-18] MEDS: MULTIVIT,CALC,MINS/IRON/FOLIC 1 TABLET 1 TAB PO (09:02)
[2018-04-18] MEDS: ASPIRIN EC 325 MG TABLET PO (09:02)
[2018-04-18] MEDS: MEGESTROL 20 MG TABLET 40 MG PO ×2 (09:02→21:35)
[2018-04-18] MEDS: ERYTHROMYCIN OPHTH 1 GM OINT 1 APPLIC EYE-RIGHT ×3 (09:03→21:35)
[2018-04-18] MEDS: SODIUM CHLORIDE 0.9% FLUSH 10 ML IV ×2 (09:03→21:36)
[2018-04-18] MEDS: DRONABINOL 2.5 MG CAPSULE PO ×3 (09:06→21:35)
[2018-04-18] MEDS: ARIPiprazole 10 MG TABLET 5 MG PO (09:07)
[2018-04-18 12:30] VITALS: BP 129/77; PULSE 109; RESP 16; TEMP 36.9; O2SAT 99
--- NOTE | 2018-04-18 13:25 | PM.PN.1 ---
Subjective Date Patient Seen: 04/18/18 Time Patient Seen: 13:00 Interval history: Collin would like to be able to leave the hospital on the 2 hr pass tomorrow. He feels he is sick of being in the hospital for so long. He denies other discomfort. Exam Vital Signs (past 8 hours): Pulse Oximetry 99 Fraction of Inspired Oxygen 30 Oxygen Delivery Method Room Air Oxygen Flow Rate 0 Narrative Exam Narrative: General: Thin middle-aged man in no acute distress Lungs: Clear bilaterally Heart: Regular rate and rhythm Abdomen: Soft, wound is fairly clean with 90% granulation tissue. Active bowel sounds. Ostomy has normal output Extremities: No edema Neuro: Alert and oriented x3; Psychiatric exam: Depressed mood Objective Labs Result Diagrams: 04/18/18 05:20 04/18/18 05:20 Labs: Laboratory Results - last 24 hr 04/18/18 04/18/18 04/18/18 05:20 05:20 05:20 WBC 36.0 H* RBC 3.18 L Hgb 8.9 L Hct 27.5 L MCV 86.5 MCH 28.2 MCHC 32.5 RDW 17.4 H Plt Count 1232 H* Neut % (Auto) Not Reportable Lymph % (Auto) Not Reportable [place] % (Auto) Not Reportable Eos % (Auto) Not Reportable Baso % (Auto) Not Reportable Total Counted 100 Seg Neutrophils % 71.0 H Band Neutrophils % 3.0 Lymphocytes % (Manual) 8.0 L Monocytes % (Manual) 13.0 H Eosinophils % (Manual) 3.0 Metamyelocytes % 1.0 H Myelocytes % 1.0 H Neutrophils # (Manual) 52510 H Plt Morphology Comment Increased plts RBC Morphology Not Reportable Anisocytosis 1+ H [place] Cells 1+ H Sodium 133 L Potassium 3.9 Chloride 101.0 Carbon Dioxide 20.0 L BUN 12.0 Creatinine 0.30 L Estimated GFR > 60.0 BUN/Creatinine Ratio 40.0 H Glucose 132 H Calcium 8.2 L Magnesium 1.7 Total Bilirubin 0.3 AST 52 ALT 88 H Alkaline Phosphatase 401 H Total Protein 7.5 Albumin 3.0 L Globulin 4.5 H Albumin/Globulin Ratio 0.7 L TSH 2.19 Assessment & Plan Plan: Plan: 1. Acute pulmonary embolism: Clinically stable. He was initially treated with therapeutic dose Lovenox. He is currently on Coumadin. Patient can follow with Dr. Cedillo at [facility] for outpatient monitoring. He should complete 90 day duration of oral anticoagulant therapy. Added aspirin 325 mg daily 04/11/2018 given significant thrombocytosis. Continue PPI for gastric protection. INR on 04/16/18 was 1.9. Coumadin doese was increased to 6 mg daily. Recheck INR tomorrow. 2. Aspiration pneumonia with acute hypoxic respiratory failure: He is off of supplemental oxygen. He was treated with Tygacil and metronidazole through 04/05/2018. He continues to have some aspiration when he gets tired so does well when he 1st starts swallowing but then as he swallows the patient does start aspirating this was reaffirmed by a modified barium swallow on April 18 per speech therapy they are continuing to work with him. He is not compliant with speech pathologist's recommendation due to weakness and depression 3. Depression: Still not adequately controlled. Significant situational component. Continue Abilify 5 mg daily. Zoloft was increased to 100 mg daily on 04/11/[address] Finney's psychiatric consultation. 4. 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 Taking food by mouth and on TPN. Managed by surgery. We will try to do some TPN during the night. If he hopefully that will help stimulate his appetite during the day. It will be more convenient when he tries to leave the hospital during the day to spend time with his family. 5. Septic shock: Resolved. He is off antibiotics. Note elevated rising WBC and platelet counts unclear whether due to active infection or inflammation. However he is afebrile with a benign abdominal exam. [place] count was 245[address] this morning no fevers. Appreciate Hematology consultation. Continue monitor his cell counts. 6. Severe protein calorie malnutrition secondary to acute on chronic illness: He has improvement of his appetite and oral intake. Consider decrease TPN to nocturnal feeding only as a supplement. Hopefully that will help improve his appetite. Continue monitor his nutritional status. 7. Dysphagia: Likely secondary to muscle weakness. Followed by speech pathology. He is currently on nectar thick liquid. He is at risk for repeat aspiration pneumonia. 8. Disposition: Awaiting insurance approval for transfer to [facility]. We had a care conference with PT, OT, speech pathologist, mental health case manager, nursing staff regarding to his care. Patient would benefit from LTAC due to profound weakness, compromise and need for ongoing therapy and TPN. He also has large anterior abdominal wound that needs wound care and dressing changes daily. 9. Persistently elevated white count and platelet count. Possibly reactive due to the current acute medical problems sepsis that has resolved. Appreciate Hematology consultation. Continue monitor his cell counts. Quality VTE Deep Vein Thrombosis/Pulmonary Embolism Present on Admission: Yes
--- NOTE | 2018-04-18 13:34 | P.PN_ITS ---
Subjective Date Patient Seen: 04/18/18 Time Patient Seen: 13:00 Interval history: Collin would like to be able to leave the hospital on the 2 hr pass tomorrow. He feels he is sick of being in the hospital for so long. He denies other discomfort. Exam Vital Signs (past 8 hours): Pulse Oximetry 99 Fraction of Inspired Oxygen 30 Oxygen Delivery Method Room Air Oxygen Flow Rate 0 Narrative Exam Narrative: General: Thin middle-aged man in no acute distress Lungs: Clear bilaterally Heart: Regular rate and rhythm Abdomen: Soft, wound is fairly clean with 90% granulation tissue. Active bowel sounds. Ostomy has normal output Extremities: No edema Neuro: Alert and oriented x3; Psychiatric exam: Depressed mood Objective Labs Result Diagrams: 04/18/18 05:20 04/18/18 05:20 Labs: Laboratory Results - last 24 hr 04/18/18 04/18/18 04/18/18 05:20 05:20 05:20 WBC 36.0 H* RBC 3.18 L Hgb 8.9 L Hct 27.5 L MCV 86.5 MCH 28.2 MCHC 32.5 RDW 17.4 H Plt Count 1232 H* Neut % (Auto) Not Reportable Lymph % (Auto) Not Reportable [place] % (Auto) Not Reportable Eos % (Auto) Not Reportable Baso % (Auto) Not Reportable Total Counted 100 Seg Neutrophils % 71.0 H Band Neutrophils % 3.0 Lymphocytes % (Manual) 8.0 L Monocytes % (Manual) 13.0 H Eosinophils % (Manual) 3.0 Metamyelocytes % 1.0 H Myelocytes % 1.0 H Neutrophils # (Manual) 39021 H Plt Morphology Comment Increased plts RBC Morphology Not Reportable Anisocytosis 1+ H [place] Cells 1+ H Sodium 133 L Potassium 3.9 Chloride 101.0 Carbon Dioxide 20.0 L BUN 12.0 Creatinine 0.30 L Estimated GFR > 60.0 BUN/Creatinine Ratio 40.0 H Glucose 132 H Calcium 8.2 L Magnesium 1.7 Total Bilirubin 0.3 AST 52 ALT 88 H Alkaline Phosphatase 401 H Total Protein 7.5 Albumin 3.0 L Globulin 4.5 H Albumin/Globulin Ratio 0.7 L TSH 2.19 Assessment & Plan Plan: Plan: 1. Acute pulmonary embolism: Clinically stable. He was initially treated with therapeutic dose Lovenox. He is currently on Coumadin. Patient can follow with Dr. Cedillo at [facility] for outpatient monitoring. He should complete 90 day duration of oral anticoagulant therapy. Added aspirin 325 mg daily 04/11/2018 given significant thrombocytosis. Continue PPI for gastric protection. INR on 04/16/18 was 1.9. Coumadin doese was increased to 6 mg daily. Recheck INR tomorrow. 2. Aspiration pneumonia with acute hypoxic respiratory failure: He is off of supplemental oxygen. He was treated with Tygacil and metronidazole through . He continues to have some aspiration when he gets tired so does well when he 1st starts swallowing but then as he swallows the patient does start aspirating this was reaffirmed by a modified barium swallow on April 18 per speech therapy they are continuing to work with him. He is not compliant with speech pathologist's recommendation due to weakness and depression 3. Depression: Still not adequately controlled. Significant situational component. Continue Abilify 5 mg daily. Zoloft was increased to 100 mg daily on 04/11/[address] Finney's psychiatric consultation. 4. 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 Taking food by mouth and on TPN. Managed by surgery. We will try to do some TPN during the night. If he hopefully that will help stimulate his appetite during the day. It will be more convenient when he tries to leave the hospital during the day to spend time with his family. 5. Septic shock: Resolved. He is off antibiotics. Note elevated rising WBC and platelet counts unclear whether due to active infection or inflammation. However he is afebrile with a benign abdominal exam. [place] count was [address]0938 this morning no fevers. Appreciate Hematology consultation. Continue monitor his cell counts. 6. Severe protein calorie malnutrition secondary to acute on chronic illness: He has improvement of his appetite and oral intake. Consider decrease TPN to nocturnal feeding only as a supplement. Hopefully that will help improve his appetite. Continue monitor his nutritional status. 7. Dysphagia: Likely secondary to muscle weakness. Followed by speech pathology. He is currently on nectar thick liquid. He is at risk for repeat aspiration pneumonia. 8. Disposition: Awaiting insurance approval for transfer to [place]. We had a care conference with PT, OT, speech pathologist, casework supervisor, nursing staff regarding to his care. Patient would benefit from LTAC due to profound weakness , compromise and need for ongoing therapy and TPN. He also has large anterior abdominal wound that needs wound care and dressing changes daily. 9. Persistently elevated white count and platelet count. Possibly reactive due to the current acute medical problems sepsis that has resolved. Appreciate Hematology consultation. Continue monitor his cell counts. Quality VTE Deep Vein Thrombosis/Pulmonary Embolism Present on Admission: Yes
[2018-04-18 13:47] LABS: Clinical Indication WHOLEBLOOD EDTA; JAK2 V617F NOT DETECTED (NOT DETECTED)
--- NOTE | 2018-04-18 14:11 | PT.IPTN ---
Current Diagnoses Sepsis, unspecified organism (03/22/18) Hypocalcemia (03/22/18) Hypokalemia (03/22/18) Major depressive disorder, single episode, unspecified (03/22/18) Other pulmonary embolism without acute cor pulmonale (03/22/18) Chronic pulmonary edema (03/22/18) Acute postprocedural respiratory failure (03/22/18) Ulcerative colitis, unspecified, without complications (03/22/18) Perforation of intestine (nontraumatic) (03/22/18) Shortness of breath (03/22/18) Severe sepsis with septic shock (03/22/18) Physical Therapy Treatment Note M2 PT-IP Current Condition Start: 03/28/18 17:17 Freq: NEEDED Status: Active Protocol: Document 04/01/18 15:10 RCC (Rec: 04/01/18 16:30 RCC [id number]) Physical Therapy Current Condition Current Condition Evaluation Date 03/28/18 Treatment Diagnosis post-op colectomy for perforated bowel Onset Date 03/22/18 Post Operative Precautions Abdominal Surgery Precautions Log Roll Lifting Restrictions Gait Belt above Incisional Area Other Precautions contact precautions: MRSA on nares M3 PT-IP Subjective Start: 03/28/18 17:17 Freq: NEEDED Status: Active Protocol: Document 04/18/18 14:05 GGD (Rec: 04/18/18 14:11 GGD [id number]) Subjective Physical Therapy Visit Type Type Treatment Note Visit Start Time 13:35 Visit Stop Time 14:05 Total Visit Minutes 30 Number of SUPERVISOR PATCHING Visits 2 Physical Therapy Visit Comments Patient Comments Pt states he having back spasms. Therapy Pain Assessment Pain When Pain Assessed During Mobility Pain Present Pain Present Pain Reported M4 PT-IP Mobility and Gait Start: 03/28/18 17:17 Freq: NEEDED Status: Active Protocol: Document 04/18/18 14:05 GGD (Rec: 04/18/18 14:11 GGD [id number]) PT-Bed Mobility Assessment Rolling Type of Rolling Log Rolling Level of Assist Standby Assistance Supine to Sit Supine to Sit Standby Assistance Sit to Supine Sit to Supine Standby Assistance Scooting Scooting to Edge of Bed Independent Scooting Up and Down in Bed Independent PT-Transfer Assessment Sit to and From Stand Sit to and from Stand Standby Assistance Equipment Transfer Assistive Device None Gait Belt Gait Assessment Gait Gait Assistance Required: Standby Assistance Distance (Feet) (feet) 180 Assistive Devices Assistive Device Gait Belt 4 Wheeled Walker Factors Limiting Gait Function Factors Limiting Gait Function Decreased Activity Tolerance Decreased Strength Comments Gait Comments Pt fatigue with activity. No LOB or unsteadiness. M5 PT-IP Objective Assessments Start: 03/28/18 17:17 Freq: NEEDED Status: Active Protocol: Document 03/28/18 17:17 AB (Rec: 03/28/18 17:27 AB [id number]) Orientation Orientation/Cognition Level of Alertness Alert Orientation Name Situation Strength Lower Extremity Strength Assessment Bilaterally Impaired Hip 3+/5 Knee 3/5 Ankle 3+/5 M6 PT-IP Treatment Start: 03/28/18 17:17 Freq: NEEDED Status: Active Protocol: Document 04/18/18 14:05 GGD (Rec: 04/18/18 14:11 GGD [id number]) Physical Therapy Treatment Exercises Exercises Ankle Pumps Gluteal Sets Other Treatments Other Treatment Performed standing marches, sit to stand , standing balance tandem and SLS. M7 PT-IP Assessment and Plan Start: 03/28/18 17:17 Freq: NEEDED Status: Active Protocol: Document 04/18/18 14:05 GGD (Rec: 04/18/18 14:11 GGD [id number]) PT Summary Assessment and Plan Summary Assessment Summary Pt fatigues quickly. He need rest breaks during treatment and C/O back pain during sit to supine. Frequency of Treatment Frequency Of Treatment Once a Day Treatment Plan Other Recommendations and Next Treatment Pt slowly progressing. He Focus needs rest and breaks between activities. Recommendations To Nursing Amount of Assist Needed 1 Person Assist Discharge Recommendations PT Discharge Recommendations Home with Assistance Home Health
--- NOTE | 2018-04-18 15:14 | PM.PNPO.1 ---
Subjective Date Patient Seen: 04/18/18 Time Patient Seen: 15:00 Interval history: Patient post subtotal colectomy. He is feeling a little better. It sounds like he is eating better. His TPN has been backed off a bit and he is being encouraged to eat more p.o.. He is really tired of being in the hospital 1 like to get out of here. Exam Vital Signs (past 8 hours): Vital Signs - 8 hr 04/18/18 12:30 Temperature 98.4 F Pulse Rate 109 H Respiratory Rate 16 Blood Pressure 129/77 H Pulse Oximetry 99 Pulse Oximetry 99 Fraction of Inspired Oxygen 30 Oxygen Delivery Method Room Air Oxygen Flow Rate 0 Narrative Exam Narrative: Lungs are clear. Heart regular rate and rhythm. Abdomen is soft. Midline wound is open with pale but healthy granulation tissue. No cellulitis. Objective Labs Result Diagrams: 04/18/18 05:20 04/18/18 05:20 Labs: Laboratory Results - last 24 hr 04/14/18 04/18/18 04/18/18 21:00 05:20 05:20 WBC 36.0 H* RBC 3.18 L Hgb 8.9 L Hct 27.5 L MCV 86.5 MCH 28.2 MCHC 32.5 RDW 17.4 H Plt Count 1232 H* Neut % (Auto) Not Reportable Lymph % (Auto) Not Reportable [place] % (Auto) Not Reportable Eos % (Auto) Not Reportable Baso % (Auto) Not Reportable Total Counted 100 Seg Neutrophils % 71.0 H Band Neutrophils % 3.0 Lymphocytes % (Manual) 8.0 L Monocytes % (Manual) 13.0 H Eosinophils % (Manual) 3.0 Metamyelocytes % 1.0 H Myelocytes % 1.0 H Neutrophils # (Manual) 75721 H Plt Morphology Comment Increased plts RBC Morphology Not Reportable Anisocytosis 1+ H [place] Cells 1+ H Sodium 133 L Potassium 3.9 Chloride 101.0 Carbon Dioxide 20.0 L BUN 12.0 Creatinine 0.30 L Estimated GFR > 60.0 BUN/Creatinine Ratio 40.0 H Glucose 132 H Calcium 8.2 L Magnesium 1.7 Total Bilirubin 0.3 AST 52 ALT 88 H Alkaline Phosphatase 401 H Total Protein 7.5 Albumin 3.0 L Globulin 4.5 H Albumin/Globulin Ratio 0.7 L TSH Sample Type Wholeblood edta JAK2 [id number] Not detected 04/18/18 05:20 WBC RBC Hgb Hct MCV MCH MCHC RDW Plt Count Neut % (Auto) Lymph % (Auto) [place] % (Auto) Eos % (Auto) Baso % (Auto) Total Counted Seg Neutrophils % Band Neutrophils % Lymphocytes % (Manual) Monocytes % (Manual) Eosinophils % (Manual) Metamyelocytes % Myelocytes % Neutrophils # (Manual) Plt Morphology Comment RBC Morphology Anisocytosis [place] Cells Sodium Potassium Chloride Carbon Dioxide BUN Creatinine Estimated GFR BUN/Creatinine Ratio Glucose Calcium Magnesium Total Bilirubin AST ALT Alkaline Phosphatase Total Protein Albumin Globulin Albumin/Globulin Ratio TSH 2.19 Sample Type JAK2 V617F Assessment & Plan Post-op Postoperative Postoperative status: doing well Postoperative plan: other (Continued TPN. Sodium acetate is already in the mixture. We will follow his sodium and CO2. Continue anticoagulation for PE. Continue to encourage p.o. and have left the TPN at the same level. Wanted to put the wound VAC back on but he declines. Makes him very uncomfortable.) Time Spent With Patient less than 15 minutes Quality VTE Deep Vein Thrombosis/Pulmonary Embolism Present on Admission: Yes
--- NOTE | 2018-04-18 15:18 | P.PN_ITS ---
Subjective Date Patient Seen: 04/18/18 Time Patient Seen: 15:00 Interval history: Patient post subtotal colectomy. He is feeling a little better. It sounds like he is eating better. His TPN has been backed off a bit and he is being encouraged to eat more p.o.. He is really tired of being in the hospital 1 like to get out of here. Exam Vital Signs (past 8 hours): Vital Signs - 8 hr 3 04/18/18 12:30 Temperature 98.4 F Pulse Rate 109 H Respiratory Rate 16 Blood Pressure 129/77 H Pulse Oximetry 99 Pulse Oximetry 99 Fraction of Inspired Oxygen 30 Oxygen Delivery Method Room Air Oxygen Flow Rate 0 Narrative Exam Narrative: Lungs are clear. Heart regular rate and rhythm. Abdomen is soft. Midline wound is open with pale but healthy granulation tissue. No cellulitis. Objective Labs Result Diagrams: 04/18/18 05:20 04/18/18 05:20 Labs: Laboratory Results - last 24 hr 04/14/18 04/18/18 04/18/18 21:00 05:20 05:20 WBC 36.0 H* RBC 3.18 L Hgb 8.9 L Hct 27.5 L MCV 86.5 MCH 28.2 MCHC 32.5 RDW 17.4 H Plt Count 1232 H* Neut % (Auto) Not Reportable Lymph % (Auto) Not Reportable [place] % (Auto) Not Reportable Eos % (Auto) Not Reportable Baso % (Auto) Not Reportable Total Counted 100 Seg Neutrophils % 71.0 H Band Neutrophils % 3.0 Lymphocytes % (Manual) 8.0 L Monocytes % (Manual) 13.0 H Eosinophils % (Manual) 3.0 Metamyelocytes % 1.0 H Myelocytes % 1.0 H Neutrophils # (Manual) 23434 H Plt Morphology Comment Increased plts RBC Morphology Not Reportable Anisocytosis 1+ H [place] Cells 1+ H Sodium 133 L Potassium 3.9 Chloride 101.0 Carbon Dioxide 20.0 L BUN 12.0 Creatinine 0.30 L Estimated GFR > 60.0 BUN/Creatinine Ratio 40.0 H Glucose 132 H Calcium 8.2 L Magnesium 1.7 Total Bilirubin 0.3 AST 52 ALT 88 H Alkaline Phosphatase 401 H Total Protein 7.5 Albumin 3.0 L Globulin 4.5 H Albumin/Globulin Ratio 0.7 L TSH Sample Type Wholeblood edta JAK2 V617F Not detected 05/26/18 05:20 WBC RBC Hgb Hct MCV MCH MCHC RDW Plt Count Neut % (Auto) Lymph % (Auto) [place] % (Auto) Eos % (Auto) Baso % (Auto) Total Counted Seg Neutrophils % Band Neutrophils % Lymphocytes % (Manual) Monocytes % (Manual) Eosinophils % (Manual) Metamyelocytes % Myelocytes % Neutrophils # (Manual) Plt Morphology Comment RBC Morphology Anisocytosis [place] Cells Sodium Potassium Chloride Carbon Dioxide BUN Creatinine Estimated GFR BUN/Creatinine Ratio Glucose Calcium Magnesium Total Bilirubin AST ALT Alkaline Phosphatase Total Protein Albumin Globulin Albumin/Globulin Ratio TSH 2.19 Sample Type JAK2 V617F Assessment & Plan Post-op Postoperative Postoperative status: doing well Postoperative plan: other (Continued TPN. Sodium acetate is already in the mixture. We will follow his sodium and CO2. Continue anticoagulation for PE. Continue to encourage p.o. and have left the TPN at the same level. Wanted to put the wound VAC back on but he declines. Makes him very uncomfortable.) Time Spent With Patient less than 15 minutes Quality VTE Deep Vein Thrombosis/Pulmonary Embolism Present on Admission: Yes
[2018-04-18] MEDS: OXYCODONE IR 5 MG TABLET PO (16:32)
[2018-04-18] MEDS: FAT EMULSIONS 50 GM/250 ML EMULSION IV (18:03)
[2018-04-18] MEDS: [UNRECOGNIZED DRUG - OTHER] IV (18:04)
[2018-04-18] MEDS: CALCIUM IV (18:04)
[2018-04-18] MEDS: LYTES IV (18:04)
[2018-04-18] MEDS: MULTIVITAMIN IV (18:04)
[2018-04-18] MEDS: TRACE ELEMENTS IV (18:04)
[2018-04-18] MEDS: DEXT IV (18:04)
[2018-04-18] MEDS: WARFARIN 3 MG TABLET 6 MG PO (18:05)
[2018-04-18 18:13] VITALS: BP 116/79; PULSE 118; RESP 19; TEMP 36.6; O2SAT 99
--- NOTE | 2018-04-18 21:37 | RT ---
O2 SAT ON RA NOTED AT 97%. RR = 20. BREATH SOUNDS ARE CLEAR BILAT. BRONCHODILATOR NOT NEEDED AT THIS TIME.
[2018-04-19 00:19] VITALS: BP 113/79; PULSE 108; RESP 20; TEMP 36.7; O2SAT 97
[2018-04-19 05:18] VITALS: BP 110/72; PULSE 111; RESP 20; TEMP 37; O2SAT 98
--- NOTE | 2018-04-19 05:44 | PC.NURSE ---
this nurse took over pt care around 0300. agreed with nurse assessments.
[2018-04-19] MEDS: INSULIN ASPART 100 UNIT/ML INSULN PEN SUBCUT (05:57)
[2018-04-19 06:07] LABS: INR 1.7 (0.9-1.3); Prothrombin Time 18.1 SECONDS (10.1-12.7)
[2018-04-19] MEDS: DRONABINOL 2.5 MG CAPSULE PO ×3 (08:25→20:29)
[2018-04-19] MEDS: MEGESTROL 20 MG TABLET 40 MG PO (08:25)
[2018-04-19] MEDS: SERTRALINE 50 MG TABLET 100 MG PO (08:26)
[2018-04-19] MEDS: ASPIRIN EC 325 MG TABLET PO (08:26)
[2018-04-19] MEDS: ARIPiprazole 10 MG TABLET 5 MG PO (08:26)
[2018-04-19] MEDS: MULTIVIT,CALC,MINS/IRON/FOLIC 1 TABLET 1 TAB PO (08:26)
[2018-04-19] MEDS: ERYTHROMYCIN OPHTH 1 GM OINT 1 APPLIC EYE-RIGHT ×2 (08:30→18:44)
[2018-04-19] MEDS: SODIUM CHLORIDE 0.9% FLUSH 10 ML IV ×3 (08:31→21:05)
--- NOTE | 2018-04-19 10:19 | P.PN_ITS ---
Subjective Date Patient Seen: 04/19/18 Time Patient Seen: 10:14 Interval history: Patient is feeling a little better. He really did not remember how sick he was and I had a talk with him yesterday about that. He did not realize how close to dying he has been. He has been trying to eat as much as he can but he says he gets full very soon. That is not unusual. He is doing exercises in bed to strengthen himself. He is expected to go out on a [address] Martinez has switched his TPN to 6:00 p.m. to 6:00 a.m.. Exam Vital Signs (past 8 hours): Vital Signs - 8 hr 3 04/19/18 05:18 Temperature 98.6 F Pulse Rate 111 H Respiratory Rate 20 Blood Pressure 110/72 Pulse Oximetry 98 Pulse Oximetry 98 Fraction of Inspired Oxygen 30 Oxygen Delivery Method Room Air Oxygen Flow Rate 0 Narrative Exam Narrative: Operative in no apparent distress. His lungs are clear. Fairly good effort. Heart regular rate and rhythm. Abdomen is soft nontender. BS small amount necrotic tissue in the base of his wound. Appears to be fascia. Using scissors I sharply cut away about a total of 2 cm by 1 cm of tissue. New dressing was applied. Objective Labs Result Diagrams: 04/18/18 05:20 04/18/18 05:20 Labs: Laboratory Results - last 24 hr 04/14/18 04/19/18 21:00 05:50 PT 18.1 H INR 1.7 H Sample Type Wholeblood edta JAK2 V617F Not detected Assessment & Plan Post-op Postoperative Postoperative status: other (Patient is stable. His wound is granulating. It is began to contract at the edges. All of those are good signs of improved nutrition. We will continue wound care. I have increased his Megace dose in the hopes of stimulating his appetite little more. His stool is thickening up a bit.) Postoperative plan: see orders (I added Lomotil to his regimen along with an increased dose of Megace. He has a 2 hr pass today for mental health reasons.) Time Spent With Patient 25 - 35 minutes Quality VTE Deep Vein Thrombosis/Pulmonary Embolism Present on Admission: Yes
--- NOTE | 2018-04-19 10:51 | PM.PN.1 ---
Subjective Date Patient Seen: 04/19/18 Time Patient Seen: 10:30 Interval history: Collin is doing well. He feels the irritation in the right eyes seem to be slowly improving. He denies significant eye pain. He was able to eat some of his meals. Exam Vital Signs (past 8 hours): Vital Signs - 8 hr 04/19/18 05:18 Temperature 98.6 F Pulse Rate 111 H Respiratory Rate 20 Blood Pressure 110/72 Pulse Oximetry 98 Pulse Oximetry 98 Fraction of Inspired Oxygen 30 Oxygen Delivery Method Room Air Oxygen Flow Rate 0 Narrative Exam Narrative: General: Thin middle-aged man in no acute distress HEENT: Mild injection in the right conjunctiva Lungs: Clear bilaterally Heart: Regular rate and rhythm Abdomen: Soft, wound is fairly clean with 90% granulation tissue. Active bowel sounds. Ostomy has normal output Extremities: No edema Neuro: Alert and oriented x3; Psychiatric exam: Mood seemed to be stable. Objective Labs Result Diagrams: 04/18/18 05:20 04/18/18 05:20 Labs: Laboratory Results - last 24 hr 04/14/18 04/19/18 21:00 05:50 PT 18.1 H INR 1.7 H Sample Type Wholeblood edta JAK2 V617F Not detected Assessment & Plan Plan: Plan: 1. Acute pulmonary embolism: Clinically stable. He was initially treated with therapeutic dose Lovenox. He is currently on Coumadin. Patient can follow with Dr. Cedillo at [facility] for outpatient monitoring. He should complete 90 day duration of oral anticoagulant therapy. Added aspirin 325 mg daily 04/11/2018 given significant thrombocytosis. Continue PPI for gastric protection. INR on April 19, 2018 was 1.7. Coumadin doese was the increased to 7.5 mg daily. Recheck INR in 3 days 2. Aspiration pneumonia with acute hypoxic respiratory failure: He is off of supplemental oxygen. He was treated with Tygacil and metronidazole through 04/05/2018. He continues to have some aspiration when he gets tired so does well when he 1st starts swallowing but then as he swallows the patient does start aspirating this was reaffirmed by a modified barium swallow on April 18 per speech therapy they are continuing to work with him. He is not compliant with speech pathologist's recommendation due to weakness and depression 3. Depression: Still not adequately controlled. Significant situational component. Continue Abilify 5 mg daily. Zoloft was increased to 100 mg daily on 04/11/[address] Finney's psychiatric consultation. 4. 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 Taking food by mouth and on TPN. Managed by surgery. We will try to do TPN during the night. If he hopefully that will help stimulate his appetite during the day. It will be more convenient when he tries to leave the hospital during the day to spend time with his family. 5. Septic shock: Resolved. He is off antibiotics. Note elevated rising WBC and platelet counts unclear whether due to active infection or inflammation. However he is afebrile with a benign abdominal exam[place] [address] this morning no fevers. Appreciate Hematology consultation. Continue monitor his cell counts. 6. Severe protein calorie malnutrition secondary to acute on chronic illness: He has improvement of his appetite and oral intake. Continue nocturnal TPN for nutritional support. Continue monitor his nutritional status. 7. Dysphagia: Likely secondary to muscle weakness. Followed by speech pathology. He is currently on nectar thick liquid. He is at risk for repeat aspiration pneumonia. 8. Disposition: He is insurance company declined coverage for long-term acute care facility or halfway facility. We are trying to get prior authorization for discharging him home possibly mid next week with home TPN infusions. 9. Persistently elevated white count and platelet count. Possibly reactive due to the current acute medical problems sepsis that has resolved. Appreciate Hematology consultation. Continue monitor his cell counts. Quality VTE Deep Vein Thrombosis/Pulmonary Embolism Present on Admission: Yes
[2018-04-19 11:00] VITALS: BP 120/73; PULSE 113; RESP 20; TEMP 37.5; O2SAT 100
[2018-04-19] MEDS: DIPHENOXYLATE/ATROP 2.5/0.025 TABLET 1 EACH PO (11:07)
[2018-04-19] MEDS: OXYCODONE IR 5 MG TABLET PO ×2 (11:11→20:22)
--- NOTE | 2018-04-19 13:43 | PT.IPTN ---
Current Diagnoses Sepsis, unspecified organism (03/22/18) Hypocalcemia (03/22/18) Hypokalemia (03/22/18) Major depressive disorder, single episode, unspecified (03/22/18) Other pulmonary embolism without acute cor pulmonale (03/22/18) Chronic pulmonary edema (03/22/18) Acute postprocedural respiratory failure (03/22/18) Ulcerative colitis, unspecified, without complications (03/22/18) Perforation of intestine (nontraumatic) (03/22/18) Shortness of breath (03/22/18) Severe sepsis with septic shock (03/22/18) Physical Therapy Treatment Note M2 PT-IP Current Condition Start: 03/28/18 17:17 Freq: NEEDED Status: Active Protocol: Document 04/01/18 15:10 RCC (Rec: 04/01/18 16:30 RCC [id number]) Physical Therapy Current Condition Current Condition Evaluation Date 03/28/18 Treatment Diagnosis post-op colectomy for perforated bowel Onset Date 03/22/18 Post Operative Precautions Abdominal Surgery Precautions Log Roll Lifting Restrictions Gait Belt above Incisional Area Other Precautions contact precautions: MRSA on nares M3 PT-IP Subjective Start: 03/28/18 17:17 Freq: NEEDED Status: Active Protocol: Document 04/19/18 13:42 CLB (Rec: 04/19/18 13:43 CLB [id number]) Subjective Physical Therapy Visit Type Type Patient Unavailable Notes Pt leaving to go home for a visit. Will check with pt in the morning for an afternoon appt time.
--- NOTE | 2018-04-19 14:37 | PC.NURSE ---
Post-op: Pt was given the okay to go out on a pass from Dr. Haley and Dr. Martinez. TPN is now 1800 to 0600. Was hep locked. Would have received 1 unit of ssc but since tpn was stopped for the day and he is not a diabetic the insulin was held. Pt excited to be out on pass for a few hours. SMy mom is making me a steak. Dr. Haley was in earlier to debride the wound and discussed with pt his dietary intake. Pt is on a calorie count and this was explained. He has been good about letting staff know when he consumes any food or beverage. His mom will bring in the record of his intake while on pass. Pt changed own ostomy indep, knew his size, SI can do it myself, I'm a 05/31 and this bid writer only passed him the supplies - what he needed during the change. Pt thinks he should be able to go home later this week. SI need to get out of here. I'm going to go crazy if I stay much longer. Cont w/poc.
--- NOTE | 2018-04-19 14:52 | CM.DANOTE ---
DCP: continued: case received yesterday, EMR reviewed and information re [facility] auth status is noted. Spoke this morning with Dr. Haley and discussed POC and d/c ideas. Dr. Haley stated that TPN was now being tried 6P to 6A only with intent to let pt experience more of an appetite. He confirms that a peg tube is not an option for pt at this time. It would require a surgical procedure that pt could not tolerate. He stated wound is beginning to heal and a wound vac is no longer part of the plan. Pt is actively involved in the care of his ostomy and his surgical wound dressing changes. RN Kym reports he did both today, did an excellent job and expressed his satisfaction re same. PT Trevon has worked several times with pt over his stay. He states that pt mobilizes fine for the home setting and is not concerned re a d/c home from mobility standpoint. Dr. Haley has ok'd a 2 hr visit home today. His mother Chiquita will pick him up this afternoon. This will be the first time this has occurred in pt's lengthy hospital stay. Met with pt this afternoon. He is found sitting in bed, preparing for his visit home. He looks alert, is smiling, says I think I may really be able to get well enough to go home. He says Dr. Haley told him d/c to home might well be possible mid to end of next week if he can continue to eat and all arrangements are in place. Assured his CM DCP team are very pleased to be able to help him to this goal. Have spoken now to [facility] oncall pharmacist Jillian (office will not be open until Friday) and discussed referral. She states that [place] Medicaid does authorize home TPN and that they have several clients with this insurance on this tx. She advises a fax of initial clinical to the office so that this could be started CARLA Friday. Have faxed now some initial clinical including these notes. DCP team will follow. P: at this point looks like home at d/c will be doable and has been pt and his mother Chiquita's hope all along...will follow closely.
--- NOTE | 2018-04-19 15:45 | PC.NURSE ---
Addendum entered by Briana Dominique R.N. 04/19/18 21:13: pt returned to via WC at 1830 accompanied by his mom. VSS. CBG 99, TPN started per order. Pt premedicated with oxycodone prior to wet to dry dressing change that was performed at . Pt requesting and medicated with ativan for sleep aid. pt expressed wish to leave hospital again for dinner tomorrow. message relayed to who said she would pass that request to in the AM. Original Note: PT CURRENTLY OUT OF HOSPITAL SIGNED OUT WITH FAMILY ON PREVIOUS SHIFT. PT IS TO RETURN TO THIS EVENING.
[2018-04-19] MEDS: FAT EMULSIONS 50 GM/250 ML EMULSION IV (18:42)
[2018-04-19] MEDS: DEXT IV (18:42)
[2018-04-19] MEDS: [UNRECOGNIZED DRUG - OTHER] IV (18:42)
[2018-04-19] MEDS: MULTIVITAMIN IV (18:42)
[2018-04-19] MEDS: TRACE ELEMENTS IV (18:42)
[2018-04-19] MEDS: CALCIUM IV (18:42)
[2018-04-19] MEDS: LYTES IV (18:42)
[2018-04-19] MEDS: WARFARIN 7.5 MG TABLET PO (18:44)
[2018-04-19 18:53] VITALS: BP 111/84; PULSE 127; RESP 18; TEMP 36.5; O2SAT 100
[2018-04-19] MEDS: MEGESTROL SUSP 400 MG/10 ML UDC PO (20:29)
[2018-04-19] MEDS: LORazepam 2 MG/ML SYRINGE 1 MG IV (21:04)
[2018-04-20] VITALS: BP 112/67; PULSE 122; RESP 16; TEMP 37.5; O2SAT 99
[2018-04-20] MEDS: OXYCODONE IR 5 MG TABLET PO ×2 (03:53→21:56)
--- NOTE | 2018-04-20 05:26 | PC.NURSE ---
third shift lieutenant: 0000 pt's ileostomy leaking, appliance had to be changed. Pt able to do most of the care himself with queing. Pt incontinent of urine. Denies pain and nausea. 0300 Pt having c/o epigastric pain. tried having a small amount of milk without any relief. notified MD and new order for Ranitadine. 0500 pt continues to have c/o heartburn and appears uncomfortable. Medicated earlier with Oxycodone and Ranitidine with no relief. Notified MD and new order for TUMS. Waiting for verification from night pharmacy.
[2018-04-20] MEDS: CALCIUM CARBONATE 500 MG TAB 1000 MG PO (05:55)
[2018-04-20 05:59] LABS: Alanine Aminotransferase 88 IU/L (21-72); Albumin 3.1 g/dL (3.5-5.0); Albumin Globulin Ratio 0.7 (1.0-2.8); Alkaline Phosphatase 499 U/L (38-126); Aspartate Aminotransferase 34 IU/L (17-59); BUN Creatinine Ratio 37.5 (6-22); Bilirubin Total 0.3 mg/dL (0.2-1.3); Calcium 8.3 mg/dL (8.4-10.2); Estimated Glomerular Filt Rate > 60.0 mL/min (>60); Globulin 4.5 g/dL (1.7-4.1); Glucose 166 mg/dL (70-100); HEMOLYSIS < 15 (0-50); Potassium 3.8 mmol/L (3.4-5.1); Sodium 129 mmol/L (137-145); Total Protein 7.6 g/dL (6.3-8.2)
[2018-04-20 06:29] LABS: Cortisol AM (Before 10AM) 25.7 ug/dL (4.46-22.7)
[2018-04-20] MEDS: INSULIN ASPART 100 UNIT/ML INSULN PEN SUBCUT ×2 (06:43→18:34)
[2018-04-20] MEDS: SODIUM CHLORIDE 0.9% FLUSH 10 ML IV ×3 (06:49→22:00)
--- NOTE | 2018-04-20 08:18 | PM.PN.1 ---
Subjective Date Patient Seen: 04/20/18 Time Patient Seen: 08:19 Interval history: Patient spent two hours with family outside of the hospital yesterday. After returning he said he developed some indigestion from eating steak while on his pass. It was treated with p.o. Zantac and Tums with fairly good resolution. He had a restless night after his colostomy bag became loose, had to be changed, and he was incontinent of urine as well. Appetite is poor this morning. Exam Vital Signs (past 8 hours): Pulse Oximetry 99 Fraction of Inspired Oxygen 30 Oxygen Delivery Method Room Air Oxygen Flow Rate 0 Narrative Exam Narrative: Const General: cooperative and comfortable Nutritional Appearance: malnourished and underweight Orientation: alert, awake and oriented x3 HENMT Head: normal to inspection Ears: hearing grossly normal bilaterally Nose: external nose normal Face and sinus: normal facial exam Mouth: oral mucosa abnormal (Dry mucus membranes) Eyes Conjunctivae: conjunctival abnormality right conjunctival injection Pupils: PERRL Neck Neck: normal visual inspection Chest Chest: normal inspection of the chest Resp Effort & Inspection: normal respiratory effort and able to speak in complete sentences Auscultation: clear to auscultation bilaterally Cardio Rate: tachycardic Rhythm: regular rhythm Heart Sounds: S1 normal and S2 normal GI Palpation: soft Auscultation: normal bowel sounds Other: Ostomy has brown soft/liquid stool. Other: bladder not distended. Neuro General: alert, awake, oriented x3 and moves all extremities Cognition: normal cognition Speech: speech normal Motor: muscle tone normal throughout Extrem General: normal to inspection Right upper extremity: normal to inspection Left upper extremity: normal to inspection Psych Mental Status: mental status grossly normal Affect: normal affect Attitude: cooperative Thought Process: normal Thought Content: normal Judgment: fair Objective Labs Result Diagrams: 04/18/18 05:20 04/20/18 05:35 Labs: Laboratory Results - last 24 hr 04/20/18 05:35 Sodium 129 L Potassium 3.8 Chloride 94.0 L Carbon Dioxide 24.0 BUN 15.0 Creatinine 0.40 L Estimated GFR > 60.0 BUN/Creatinine Ratio 37.5 H Glucose 166 H Calcium 8.3 L Total Bilirubin 0.3 AST 34 ALT 88 H Alkaline Phosphatase 499 H Total Protein 7.6 Albumin 3.1 L Globulin 4.5 H Albumin/Globulin Ratio 0.7 L Cortisol AM Sample 25.7 H Assessment & Plan Plan: Plan: 1. Acute pulmonary embolism: Clinically stable. He was initially treated with therapeutic dose Lovenox. He is currently on Coumadin. Patient can follow with Dr. Cedillo at [facility] for outpatient monitoring. He should complete 90 day duration of oral anticoagulant therapy. Added aspirin 325 mg daily 04/11/2018 given significant thrombocytosis. Continue PPI for gastric protection. INR on April 19, 2018 was 1.7. Coumadin dose was the increased to 7.5 mg daily. Recheck INR 22 April. 2. Aspiration pneumonia with acute hypoxic respiratory failure: He remains off supplemental oxygen. He was treated with Tygacil and metronidazole through 04/05/2018. He continues to have some aspiration when he gets tired so does well when he 1st starts swallowing but then as he swallows the patient does start aspirating this was reaffirmed by a modified barium swallow on April 18. Speech therapy are continuing to work with him. He has not been compliant with speech pathologist's recommendation due to weakness and depression. 3. Depression: Slight improvement noted but continues to have a significant situational component. Continue Abilify 5 mg daily. Zoloft was increased to 100 mg daily on 04/11/[address] Finney's psychiatric consultation. 4. 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 Taking food by mouth and on evening/nightime TPN. Managed by surgery. We will continue to do TPN during the night ([id number]). This may help stimulate his appetite during the day. It will be more convenient when he tries to leave the hospital during the day to spend time with his family. 5. Septic shock: Resolved. He is off antibiotics. Note elevated WBC and platelet counts unclear whether due to active infection or inflammation. However he is afebrile with a benign abdominal exam (Tmax 99.5). White count was [id number] on April 18. No fevers. Appreciate Hematology consultation. Continue monitor his cell counts. 6. Severe protein calorie malnutrition secondary to acute on chronic illness: He has improvement of his appetite and oral intake. Continue nocturnal TPN for nutritional support. Continue monitor his nutritional status. 7. Dysphagia: Likely secondary to muscle weakness. Followed by speech pathology. He is currently on nectar thick liquid. He is at risk for repeat aspiration pneumonia. 8. Disposition: He is insurance company declined coverage for long-term acute care facility or [facility]. We are trying to get prior authorization for discharging him home possibly mid week with home TPN infusions. 9. Persistently elevated white count and platelet count. Possibly reactive due to the current acute medical problems sepsis that has resolved. Appreciate Hematology consultation. Continue monitor his cell counts. Time Spent With Patient Time with patient: Greater than 35 minutes Quality VTE Deep Vein Thrombosis/Pulmonary Embolism Present on Admission: Yes
--- NOTE | 2018-04-20 09:09 | OT.IP.TRT ---
Current Diagnoses Sepsis, unspecified organism (03/22/18) Hypocalcemia (03/22/18) Hypokalemia (03/22/18) Major depressive disorder, single episode, unspecified (03/22/18) Other pulmonary embolism without acute cor pulmonale (03/22/18) Chronic pulmonary edema (03/22/18) Acute postprocedural respiratory failure (03/22/18) Ulcerative colitis, unspecified, without complications (03/22/18) Perforation of intestine (nontraumatic) (03/22/18) Shortness of breath (03/22/18) Severe sepsis with septic shock (03/22/18) Occupational Therapy Treatment Note M2 OT-IP Current Condition Start: 04/07/18 15:30 Freq: Status: Active Protocol: Document 04/17/18 11:45 ADH (Rec: 04/17/18 12:13 ADH [id number]) Occupational Therapy Current Condition Current Condition Evaluation Date 04/07/18 Treatment Diagnosis decreased BUE/hand strength, endurance and self care skills Diagnosis Onset Date 03/22/18 Post Operative Precautions Abdominal Surgery Precautions Log Roll Lifting Restrictions Gait Belt above Incisional Area Other Precautions open abdominal incision with wet to dry dressings and new ileostomy M3 OT- IP Subjective and Pain Start: 04/07/18 15:30 Freq: Status: Active Protocol: Document 04/20/18 09:06 [facility] (Rec: 04/20/18 09:09 [facility] [id number]) OT- Subjective Occupational Therapy Visit Type Type Patient Refusal Notes Pt states very tired from going home a few hours yesterday. Pt requesting to rest more and try to go home again today and wanted to try to shower at home. Spoke to nursing about possibility of shower at home and nurse states to speak to his mother regarding covering IV and abdominal site otherwise shower prior to going out.
[2018-04-20] MEDS: ARIPiprazole 10 MG TABLET 5 MG PO (09:43)
[2018-04-20] MEDS: ERYTHROMYCIN OPHTH 1 GM OINT 1 APPLIC EYE-RIGHT ×4 (09:43→21:06)
[2018-04-20] MEDS: DRONABINOL 2.5 MG CAPSULE PO ×3 (09:43→21:59)
[2018-04-20] MEDS: ASPIRIN EC 325 MG TABLET PO (09:43)
[2018-04-20] MEDS: SERTRALINE 50 MG TABLET 100 MG PO (09:44)
[2018-04-20] MEDS: MEGESTROL SUSP 400 MG/10 ML UDC PO ×2 (09:44→21:57)
[2018-04-20] MEDS: MULTIVIT,CALC,MINS/IRON/FOLIC 1 TABLET 1 TAB PO (09:44)
[2018-04-20 11:00] VITALS: BP 117/70; PULSE 110; RESP 20; O2SAT 100
--- NOTE | 2018-04-20 12:42 | P.PN_ITS ---
Subjective Date Patient Seen: 04/20/18 Time Patient Seen: 12:40 Interval history: Apparently his past history was successful. He had a little indigestion when he got back but this seemed to resolve. TPN has been stopped and he is on Megace to stimulate his appetite. It does seem to be working and calorie count is underway. He sleeping at the time of my visit and I did not wake him as he had a very long visit with the hospitalist this morning. Exam Vital Signs (past 8 hours): Vital Signs - 8 hr 3 04/20/18 11:00 Pulse Rate 110 H Respiratory Rate 20 Blood Pressure 117/70 Pulse Oximetry 100 Pulse Oximetry 100 Fraction of Inspired Oxygen 30 Oxygen Delivery Method Room Air Oxygen Flow Rate 0 Narrative Exam Narrative: No real change. Wound continues to granulate without evidence of infection. Objective Labs Result Diagrams: 04/18/18 05:20 04/20/18 05:35 Labs: Laboratory Results - last 24 hr 04/20/18 05:35 Sodium 129 L Potassium 3.8 Chloride 94.0 L Carbon Dioxide 24.0 BUN 15.0 Creatinine 0.40 L Estimated GFR > 60.0 BUN/Creatinine Ratio 37.5 H Glucose 166 H Calcium 8.3 L Total Bilirubin 0.3 AST 34 ALT 88 H Alkaline Phosphatase 499 H Total Protein 7.6 Albumin 3.1 L Globulin 4.5 H Albumin/Globulin Ratio 0.7 L Cortisol AM Sample 25.7 H Assessment & Plan Plan: Plan: Awaiting mutation results regarding possible treatment for myelodysplastic disorder. Agree with all other treatment and plans for discharge home if he is able to maintain his calorie intake. Quality VTE Deep Vein Thrombosis/Pulmonary Embolism Present on Admission: Yes
[2018-04-20 13:28] VITALS: TEMP 37.1
--- NOTE | 2018-04-20 13:37 | PT.IPTN ---
Current Diagnoses Sepsis, unspecified organism (03/22/18) Hypocalcemia (03/22/18) Hypokalemia (03/22/18) Major depressive disorder, single episode, unspecified (03/22/18) Other pulmonary embolism without acute cor pulmonale (03/22/18) Chronic pulmonary edema (03/22/18) Acute postprocedural respiratory failure (03/22/18) Ulcerative colitis, unspecified, without complications (03/22/18) Perforation of intestine (nontraumatic) (03/22/18) Shortness of breath (03/22/18) Severe sepsis with septic shock (03/22/18) Physical Therapy Treatment Note M2 PT-IP Current Condition Start: 03/28/18 17:17 Freq: NEEDED Status: Active Protocol: Document 04/01/18 15:10 [facility] (Rec: 04/01/18 16:30 [facility] [id number]) Physical Therapy Current Condition Current Condition Evaluation Date 03/28/18 Treatment Diagnosis post-op colectomy for perforated bowel Onset Date 03/22/18 Post Operative Precautions Abdominal Surgery Precautions Log Roll Lifting Restrictions Gait Belt above Incisional Area Other Precautions contact precautions: MRSA on nares M3 PT-IP Subjective Start: 03/28/18 17:17 Freq: NEEDED Status: Active Protocol: Document 04/20/18 13:04 [facility] (Rec: 04/20/18 13:37 [facility] [email or web address]) Subjective Physical Therapy Visit Type Type Treatment Note Visit Start Time 13:04 Visit Stop Time 13:27 Total Visit Minutes 23 Number of SALES SUPPORT COORDINATOR Visits 3 Physical Therapy Visit Comments Patient Comments Pt willing to ambulate in mercedes . Therapy Pain Assessment Pain Present Pain Present Denied Pain M4 PT-IP Mobility and Gait Start: 03/28/18 17:17 Freq: NEEDED Status: Active Protocol: Document 04/20/18 13:04 [facility] (Rec: 04/20/18 13:37 [facility] [email or web address]) PT-Bed Mobility Assessment Rolling Type of Rolling Log Rolling Level of Assist Standby Assistance Supine to Sit Supine to Sit Standby Assistance Sit to Supine Sit to Supine Standby Assistance Scooting Scooting to Edge of Bed Independent Scooting Up and Down in Bed Independent PT-Transfer Assessment Equipment Transfer Assistive Device None Gait Belt Gait Assessment Gait Gait Assistance Required: Standby Assistance Distance (Feet) (feet) 550 Assistive Devices Assistive Device Gait Belt 4 Wheeled Walker Factors Limiting Gait Function Factors Limiting Gait Function Decreased Activity Tolerance Decreased Strength Comments Gait Comments Pt fatigued with ambulation and SOB, Pt took one seated rest break. M5 PT-IP Objective Assessments Start: 03/28/18 17:17 Freq: NEEDED Status: Active Protocol: Document 03/28/18 17:17 AB (Rec: 03/28/18 17:27 AB [id number]) Orientation Orientation/Cognition Level of Alertness Alert Orientation Name Situation Strength Lower Extremity Strength Assessment Bilaterally Impaired Hip 3+/5 Knee 3/5 Ankle 3+/5 M6 PT-IP Treatment Start: 03/28/18 17:17 Freq: NEEDED Status: Active Protocol: Document 04/20/18 13:04 [facility] (Rec: 04/20/18 13:37 [facility] [email or web address]) Physical Therapy Treatment Exercises Exercises Gluteal Sets Quad Sets Heel Slides M7 PT-IP Assessment and Plan Start: 03/28/18 17:17 Freq: NEEDED Status: Active Protocol: Document 04/20/18 13:04 [facility] (Rec: 04/20/18 13:37 [facility] [email or web address]) PT Summary Assessment and Plan Summary Assessment Summary Pt continues to fatigue quickly and needed on sitting rest break. Pt was SOB, O2 sat 100%, HR 123. Pt was in good spirits although he said he didn't sleep well last night due to heartburn. Frequency of Treatment Frequency Of Treatment Once a Day Treatment Plan Physical Therapy Treatment Plan Gait Training Therapeutic Exercise Balance Retraining Discharge Planning Other Recommendations and Next Treatment Gait, ther ex. Focus Recommendations To Nursing Amount of Assist Needed 1 Person Assist Discharge Recommendations PT Discharge Recommendations Home with Assistance Home Health
--- NOTE | 2018-04-20 14:47 | CM.DPC ---
ROBERTO CARLOS Ongoing Assmt: Reviewed recent chart notes and did not visit patient in person today. Did speak with MDs and attending nurse multiple times about this case. Patient stated per recent note that he wanted to have home visit today, but in CM office discussion, some concern about his likely d/c home on Fri or , and possible insurance queries if he has home visits but is not ready to be d/c home. Taiwo Brown, PROFESSOR OF MECHANICAL ENGINEERING, stated patient is not ready to d/c home at this time. He may be ready as early as Fri or , but at this time his learning and performing ostomy and wound care is ongoing, he is not taking in nearly enough oral nutrition (so continues with TPN supplementation), still has c/o abdominal distress when he does eat, and needs to be more stable to d/c home with [facility]. Dr. Cedillo was present and concurred with this assmt. Nursing staff checked in with him multiple times during the day, and he is okay with waiting for further stability and a hospital discharge to home, hopefully later this week. Plan: Home later this week, if stable, with continued TPN managed by [facility]. Query whether or not he would benefit from HH PT/OT/RN if covered by [facility]. Patti Aguero RN
[2018-04-20 16:32] VITALS: BP 100/70; PULSE 118; RESP 18; TEMP 37.1; O2SAT 100
[2018-04-20] MEDS: WARFARIN 7.5 MG TABLET PO (18:07)
[2018-04-20] MEDS: FAT EMULSIONS 50 GM/250 ML EMULSION IV (18:07)
[2018-04-20] MEDS: MULTIVITAMIN IV (18:08)
[2018-04-20] MEDS: [UNRECOGNIZED DRUG - OTHER] IV (18:08)
[2018-04-20] MEDS: LYTES IV (18:08)
[2018-04-20] MEDS: DEXT IV (18:08)
[2018-04-20] MEDS: CALCIUM IV (18:08)
[2018-04-20] MEDS: TRACE ELEMENTS IV (18:08)
[2018-04-20] MEDS: LORazepam 2 MG/ML SYRINGE 1 MG IV (21:56)
[2018-04-21 00:05] VITALS: BP 122/73; PULSE 126; RESP 16; TEMP 37.2; O2SAT 96
[2018-04-21 05:43] LABS: Hematocrit 28.1 % (41-53); Hemoglobin 9.2 g/dL (13.5-17.5); Mean Corpuscular HGB Conc 32.6 % (30-36); Mean Corpuscular Hemoglobin 27.9 PG (26-34); Mean Corpuscular Volume 85.7 fL (80-100); Red Blood Cell Count 3.29 X10^6/uL (4.5-5.9)
[2018-04-21 05:51] LABS: BUN Creatinine Ratio 32.5 (6-22); Blood Urea Nitrogen 13 mg/dL (9-20); Calcium 8.5 mg/dL (8.4-10.2); Carbon Dioxide 26 mmol/L (22-32); Chloride 93 mmol/L (98-107); Estimated Glomerular Filt Rate > 60.0 mL/min (>60); Glucose 167 mg/dL (70-100); HEMOLYSIS < 15 (0-50); Potassium 3.9 mmol/L (3.4-5.1); Sodium 130 mmol/L (137-145)
[2018-04-21 05:57] LABS: White Blood Cell Count 37.9 X10^3/uL (4.5-11.0)
[2018-04-21 05:58] LABS: Add Manual Diff / Slide Review YES; Platelet Count 1048 X10^3/uL (150-400)
[2018-04-21] MEDS: INSULIN ASPART 100 UNIT/ML INSULN PEN SUBCUT (06:08)
[2018-04-21] MEDS: SODIUM CHLORIDE 0.9% FLUSH 10 ML IV ×4 (06:35→21:23)
[2018-04-21 06:50] LABS: Hypochromasia 1+
[2018-04-21] MEDS: ERYTHROMYCIN OPHTH 1 GM OINT 1 APPLIC EYE-RIGHT ×2 (09:06→12:51)
[2018-04-21] MEDS: ARIPiprazole 10 MG TABLET 5 MG PO (09:09)
[2018-04-21] MEDS: MEGESTROL SUSP 400 MG/10 ML UDC PO ×2 (09:09→21:24)
[2018-04-21] MEDS: ASPIRIN EC 325 MG TABLET PO (09:09)
[2018-04-21] MEDS: MULTIVIT,CALC,MINS/IRON/FOLIC 1 TABLET 1 TAB PO (09:11)
[2018-04-21] MEDS: SERTRALINE 50 MG TABLET 100 MG PO (09:11)
[2018-04-21] MEDS: DRONABINOL 2.5 MG CAPSULE PO ×3 (09:15→21:28)
[2018-04-21 09:30] VITALS: BP 103/61; PULSE 121; RESP 20; TEMP 36.6; O2SAT 99
--- NOTE | 2018-04-21 10:15 | PC.NURSE ---
Day shift: A&Ox3. Pt calm and cooperative w/ care. He said he is excited to be going home tomorrow. ABD dressing changed by JOSÉ RN at 0630 today. It is CDI. Iliostomy patent. Rt eye red from infection. Antibiotic applied. PICC line patent. Ate breakfast and has been drinking fluids w/ no nausea. No pain present as well.Yonker suction at bedside. Moist cough. Protein drinks tolerated and encouraged. Uses call light proper. Agrees to not get OOB w/o help from staff.
--- NOTE | 2018-04-21 10:16 | DIET.PN ---
Updating calorie count from weekend. Incomplete data gathered - multiple meal tickets missing. However, pt reports good intake and of the meals that were logged, recorded intake supports this. meals on 17 Apr 2018: 2 eggs for breakfast, 140 bob / 12 g pro; 6 oz veal chop for lunch, 300 bob, 40 g pro meal on 18 Apr 2018: est. 800 bob, 30 g protein @ hospital; pt was also released to visit home for 2 hours where he ate an 8 oz T-bone steak (~675 bob, 56 g pro), as well as a latte, potato salad, and baked beans (intake record provided per pt's mother) meals on 19 Apr 2018: 3 eggs for breakfast, 1/4 sl white toast, 280 bob iced coffee: 515 bob, 32 g pro 1 oz string cheese: 50 bob, 7 g pro grilled cheese swich, chicken noodle soup, iced coffee: 680 bob, 31 g pro As stated above this does not paint a complete picture of his weekend intake, but overall PO intake appears to be improving steadily. TPN has been stopped. Will encourage pt to continue focusing his efforts on increasing protein intake for remainder of his stay and following d/c home. May Ziegler, management retail intern Bindu Ware RDN
--- NOTE | 2018-04-21 10:32 | CM.DPNOTE ---
Addendum entered by Bhumika Dickerson 04/21/18 14:06: [facility] met with patient and mom. All questions answered. [facility] needs discharge order to read discharged home with [facility] infusion TPN. Phone call from [facility]: They are contracted with [place] [employer]. Faxed referral this date. Plan: Patient to discharge home with [facility] TPN and HH/RN,PT,OT,ST. CM to follow up with [facility] for acceptance and fax discharge summary to both agencies. If [facility] is unable to accept would need to contact additional [place] contracted agency. Original Note: Addendum entered by Bhumikalinda Dickerson 04/21/18 12:17: Met with patient: patient agreeable to plan and eager to discharge. Patient will see if mom will be available to speak with [facility]. [facility]: They are not contracted with Medicaid/[employer]. SW called and left voicemail with Remy for list of contracted agencies. Called and left voicemail with [facility]ites[facility] and [facility] to see if either is contracted with [employer]. Original Note: [facility] to come and visit with patient this afternoon. No Copay for TPN. F2F received and referral faxed to [facility]/RN/PT/OT/ST. Per MD possible discharge tomorrow.
--- NOTE | 2018-04-21 12:00 | OT.IP.TRT ---
Current Diagnoses Sepsis, unspecified organism (03/22/18) Hypocalcemia (03/22/18) Hypokalemia (03/22/18) Major depressive disorder, single episode, unspecified (03/22/18) Other pulmonary embolism without acute cor pulmonale (03/22/18) Chronic pulmonary edema (03/22/18) Acute postprocedural respiratory failure (03/22/18) Ulcerative colitis, unspecified, without complications (03/22/18) Perforation of intestine (nontraumatic) (03/22/18) Shortness of breath (03/22/18) Severe sepsis with septic shock (03/22/18) Occupational Therapy Treatment Note M2 OT-IP Current Condition Start: 04/07/18 15:30 Freq: Status: Active Protocol: Document 04/17/18 11:45 [facility] (Rec: 04/17/18 12:13 [facility] [id number]) Occupational Therapy Current Condition Current Condition Evaluation Date 04/07/18 Treatment Diagnosis decreased BUE/hand strength, endurance and self care skills Diagnosis Onset Date 03/22/18 Post Operative Precautions Abdominal Surgery Precautions Log Roll Lifting Restrictions Gait Belt above Incisional Area Other Precautions open abdominal incision with wet to dry dressings and new ileostomy M3 OT- IP Subjective and Pain Start: 04/07/18 15:30 Freq: Status: Active Protocol: Document 04/21/18 09:40 [facility] (Rec: 04/21/18 11:59 [facility] [id number]) OT- Subjective Occupational Therapy Visit Type Type Treatment Note Visit Start Time 09:40 Visit Stop Time 10:10 Total Visit Minutes 30 Notes Pt agreeable to take a shower today. Occupational Therapy Visit Comments Patient/Caregiver Goals d/c home OT Pain Assessment Pain When Pain Assessed During Mobility Pain Present Pain Present Denied Pain M4 OT- IP ADL's Start: 04/07/18 15:30 Freq: Status: Active Protocol: Document 04/21/18 09:40 [facility] (Rec: 04/21/18 11:59 [facility] [id number]) OT ADL-Dressing General Eval Upper Body Dressing Ability Standby Assistance Lower Body Dressing Ability Contact Guard Assistance Areas Needing Assistance Retrieving/Set-up of Clothing Comments OT Dressing Comments CGA for balance while takng off brief/socks/pants while standing. OT ADL-Bathing General Evaluation Bathing Ability Standby Assistance Areas Needing Assistance Retrieving/Setting Up Items Wash/Dry Back Comments OT Bathing Comments Pt able to do all bathing needs seated with SBA, only needing assist for set-up and wash/d4ry his back. M5 OT- IP IADL's Start: 04/07/18 15:30 Freq: Status: Active Protocol: Document 04/07/18 15:26 PJM (Rec: 04/07/18 15:50 [facility] [id number]) OT-Instrumental Activities of Daily Living Deficits IADL Deficits Identified Deficits Home Safety Awareness Awareness of Need for Assistance at Home Decreased Awareness Meal Preparation Meal Preparation Comments total assist on modified diet at present, DMA w/nectar thicks Facility Rehab Director Facility Rehab Director Comments Total assist Driving Driving Comments pt unable to drive at present M6 OT- IP Functional Cognition Start: 04/07/18 15:30 Freq: Status: Active Protocol: Document 04/14/18 10:00 [facility] (Rec: 04/14/18 11:31 [facility] [id number]) Cognitive Factors Limiting Selfcare Function Cognitive Ability Level of Alertness Alert Attention Span Ability Capable of Focused Attention Capable of Sustained Attention Safety Awareness Underestimates Need for Assistance M7 OT- IP Mobility and Balance Start: 04/07/18 15:30 Freq: Status: Active Protocol: Document 04/21/18 09:40 [facility] (Rec: 04/21/18 11:59 [facility] [id number]) OT- Bed Mobility Assessment Rolling Level of Assistance Standby Assistance Head of Bed Elevated Supine to Sit Supine to Sit Assist Standby Assistance Head of Bed Elevated Sit to Supine Sit to Supine Assist Standby Assistance Head of Bed Elevated Scooting Scooting to Edge of Bed Standby Assistance Head of Bed Elevated OT-Transfer Assessment Sit to and From Stand Sit to and from Stand Standby Assistance Transfers Transfer Ability Contact Guard Assistance Technique Transfer Destination Chair Shower Stall Devices Transfer Assistive Devices None Comments Mobility Comments CGA for balance while walking to the bathroom and back to chair and bed. OT- Balance Assessment Sitting Balance and Reactions Static Sitting Balance Ability Good Dynamic Sitting Balance Ability Good Standing Balance and Reactions Static Standing Balance Ability Good Dynamic Standing Balance Ability Fair M8 OT- IP Objective Assessments Start: 04/07/18 15:30 Freq: Status: Active Protocol: Document 04/09/18 17:27 PJM (Rec: 04/09/18 17:38 PJM [id number]) OT Strength Comments Strength Comments Pt seen for education re: light blue theraband ex for 5 reps unilateral shldr flex, 5 reps bilateral horiz abduction , 5 reps biceps curls. Pt also educated re; red theraputty for 10 reps mass finger flex and 5 reps finger ext. M9 OT- IP Assessment and Plan Start: 04/07/18 15:30 Freq: Status: Active Protocol: Document 04/21/18 09:40 [facility] (Rec: 04/21/18 11:59 [facility] [id number]) OT Summary Assessment and Plan Summary OT Impairments Strength Progress Towards Goals Slow Progress due to Medical Issues Slow Progress due to Activity Tolerance Assessment Summary Pt making improvement withi overall activity tolerance and ADl's. Goals Self-Feeding Goal Independent Grooming Goal Independent Dressing Goal Independent Toileting Goal Independent Bathing Goal Standby Assistance Toilet Transfer Goal Independent Shower Transfer Goal Standby Assistance Frequency of Treatment Frequency Of Treatment Once a Day Treatment Plan OT Treatment Plan ADL Training Functional Mobility Discharge Planning Discharge Recommendations OT Discharge Recommendations Home with Assistance Home Health
--- NOTE | 2018-04-21 12:06 | PM.PN.1 ---
Subjective <PHUONG García - Last Filed: 04/21/18 12:30> Date Patient Seen: 04/21/18 Time Patient Seen: 10:06 Interval history: Patient appears to be in much better spirits today. Sitting up in bed in no acute distress. Denies any indigestion and he states his appetite is better today. Exam <PHUONG García - Last Filed: 04/21/18 12:30> Vital Signs (past 8 hours): Pulse Oximetry 96 Fraction of Inspired Oxygen 30 Oxygen Delivery Method Room Air Oxygen Flow Rate 0 Narrative Exam Narrative: Const General: cooperative and comfortable Nutritional Appearance: malnourished and underweight Orientation: alert, awake and oriented x3 HENMT Head: normal to inspection Ears: hearing grossly normal bilaterally Nose: external nose normal Face and sinus: normal facial exam Mouth: oral mucosa abnormal (Dry mucus membranes) Eyes Conjunctivae: conjunctival abnormality right conjunctival injection. No change since yesterday despite being on erythromycin eye ointment. Possible viral in nature. Pupils: PERRL Neck Neck: normal visual inspection Chest Chest: normal inspection of the chest Resp Effort & Inspection: normal respiratory effort and able to speak in complete sentences Auscultation: clear to auscultation bilaterally Cardio Rate: tachycardic Rhythm: regular rhythm Heart Sounds: S1 normal and S2 normal GI Palpation: soft Auscultation: normal bowel sounds Other: Ostomy has brown soft/liquid stool. Other: bladder not distended. Neuro General: alert, awake, oriented x3 and moves all extremities Cognition: normal cognition Speech: speech normal Motor: muscle tone normal throughout Extrem General: normal to inspection Right upper extremity: normal to inspection Left upper extremity: normal to inspection Psych Mental Status: mental status grossly normal Affect: normal affect Attitude: cooperative Thought Process: normal Thought Content: normal Judgment: fair Objective <PHUONG García - Last Filed: 04/21/18 12:30> Labs Result Diagrams: 04/21/18 05:16 04/21/18 05:16 Labs: Laboratory Results - last 24 hr 04/21/18 04/21/18 05:16 05:16 WBC 37.9 H* RBC 3.29 L Hgb 9.2 L Hct 28.1 L MCV 85.7 MCH 27.9 MCHC 32.6 RDW 18.0 H Plt Count 1048 H* Neut % (Auto) Not Reportable Lymph % (Auto) Not Reportable [place] % (Auto) Not Reportable Eos % (Auto) Not Reportable Baso % (Auto) Not Reportable Seg Neutrophils % 72.0 H Band Neutrophils % 1.0 L Lymphocytes % (Manual) 18.0 L Monocytes % (Manual) 5.0 Eosinophils % (Manual) 1.0 L Basophils % (Manual) 1.0 Metamyelocytes % 1.0 H Myelocytes % 1.0 H RBC Morphology Not Reportable Hypochromasia 1+ H Sodium 130 L Potassium 3.9 Chloride 93 L Carbon Dioxide 26 BUN 13 Creatinine 0.40 L Estimated GFR > 60.0 BUN/Creatinine Ratio 32.5 H Glucose 167 H Calcium 8.5 Assessment & Plan <PHUONG García - Last Filed: 04/21/18 12:30> Plan: Plan - PHUONG García: 1. Acute pulmonary embolism: Clinically stable. He was initially treated with therapeutic dose Lovenox. He is currently on Coumadin. Patient can follow with Dr. Cedillo at [facility] for outpatient monitoring. He should complete 90 day duration of oral anticoagulant therapy. Added aspirin 325 mg daily 04/11/2018 given significant thrombocytosis. Continue PPI for gastric protection. INR on April 19, 2018 was 1.7. Coumadin dose was the increased to 7.5 mg daily. Recheck INR in a.m. 2. Aspiration pneumonia with acute hypoxic respiratory failure: He remains off supplemental oxygen. He was treated with Tygacil and metronidazole through 04/05/2018. He continues to have some aspiration when he gets tired so does well when he 1st starts swallowing but then as he swallows the patient does start aspirating this was reaffirmed by a modified barium swallow on April 18. Speech therapy are continuing to work with him. He is more with speech pathologist's recommendation. 3. Depression: Slight improvement noted but continues to have a significant situational component. Continue Abilify 5 mg daily. Zoloft was increased to 100 mg daily on 04/11/[address] Finney's psychiatric consultation. 4. 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 Taking food by mouth and on evening/nightime TPN. Managed by surgery. We will continue to do TPN during the night ([id number]). This may help stimulate his appetite during the day. 5. Septic shock: Resolved. He is off antibiotics. Note elevated WBC and platelet counts unclear whether due to active infection or inflammation. However he is afebrile with a benign abdominal exam (Tmax 99.5). [place] [id number] on April 18. No fevers. Appreciate Hematology consultation. Continue monitor his cell counts. Will repeat a.m. CBC. 6. Severe protein calorie malnutrition secondary to acute on chronic illness: He has improvement of his appetite and oral intake. He remains on Megace. Continue nocturnal TPN for nutritional support. Continue monitor his nutritional status with calorie count. His sodium was low at 129, improved to 130 today and I will repeat electrolytes in the morning. 7. Dysphagia: Likely secondary to muscle weakness. Followed by speech pathology. He is currently on nectar thick liquid. He is at risk for repeat aspiration pneumonia. 8. Disposition: He is insurance company declined coverage for long-term acute care facility or shelter facility. We are trying to get prior authorization for discharging him home possibly mid week with home TPN infusions. Probable discharge in a.m.. 9. Persistently elevated white count and platelet count. Possibly reactive due to the current acute medical problems sepsis that has resolved. Appreciate Hematology consultation. Continue monitor his cell counts. Awaiting mutation results regarding possible treatment for myelodysplastic disorder. Quality <PHUONG García - Last Filed: 04/21/18 12:30> VTE Deep Vein Thrombosis/Pulmonary Embolism Present on Admission: Yes
[2018-04-21] MEDS: OXYCODONE IR 5 MG TABLET PO ×2 (12:53→22:22)
--- NOTE | 2018-04-21 14:30 | ST.IPTN ---
CORRECTIVE THERAPY AIDE TEACHER Dysphagia Treatment CORRECTIVE THERAPY AIDE TEACHER Dysphagia Treatment Start: 04/06/18 13:05 Freq: Status: Active Protocol: Document 04/21/18 14:23 TLC (Rec: 04/21/18 14:29 TLC [email or web address]) Dysphagia Treatment Session Time Visit Start Time 14:10 Visit Stop Time 14:20 Total Visit Minutes 10 Setting Assessment Location Acute Care Visit Type Note Type Treatment Note Next Note Type Next Note Type Discharge Summary Patient Information Subjective Observations Patient resting in bed, says he is ready to go home tomorrow. His mother was present. Per nursing, patient' s appetite has improved. He ate soup and mashed potatoes for lunch. Patient denied any difficulty with meal. Treatment Liquids Trialed Thin Solids Trialed Mechanical Soft Administration Type Cup Single Sip Self-Feeding Oral Strategies Upright at 90 degrees Double Swallow Controlled Bite/Sip Size Alternate Liquids/Solids Pharyngeal Phase Strategies Sitting Upright (90 deg) Chin Tuck Double Swallow Effortful Swallow Small Bites and Sips Alternate Liquids/Solids Treatment Activities Patient refused PO trials as he had eaten lunch prior to our visit. He was able to recall aspiration precautions including use of a chin tuck. Ongoing education provided regarding importance of implementing aspiration precautions as well as oral care to decrease aspiration pneumonia risk. Patient and his mother verbalized understanding. Assessment Assessment of Improvement Patient reports he feels as if he has taken a turn for the better. His appetite has improved and he is reporting less coughing during meals. Diet Recommendations Recommendations Continue Current Diet Liquids Order Thin Diet Order Mechanical Soft Medication Recommendations As Tolerated One at a Time Aspiration Precautions Recommended Precautions Upright at 90 Degrees Alternate Liquids/Solids Frequent Rest Periods Small Bites/Sips Chin Tuck Effortful Swallow Double Swallow Treatment Plan Therapy Recommendations Patient will comprehend education regarding swallow and implement necessary behaviors to improve swallow function. Dysphagia Goals Pt will safely tolerate the least-restrictive diet without aspiration. Meeting goal (04/17/18) Pt will implement safe swallow strategies to reduce aspiration risk. Meeting goal with slow progress, needs multiple reminders for consistency; add 1:1 assistance to further support his compliance () Pt will receive education and training regarding aspiration risk and demonstrate verbal understanding. Goal Met (04/16/18)5
--- NOTE | 2018-04-21 15:31 | PT.IPTN ---
Current Diagnoses Sepsis, unspecified organism (03/22/18) Hypocalcemia (03/22/18) Hypokalemia (03/22/18) Major depressive disorder, single episode, unspecified (03/22/18) Other pulmonary embolism without acute cor pulmonale (03/22/18) Chronic pulmonary edema (03/22/18) Acute postprocedural respiratory failure (03/22/18) Ulcerative colitis, unspecified, without complications (03/22/18) Perforation of intestine (nontraumatic) (03/22/18) Shortness of breath (03/22/18) Severe sepsis with septic shock (03/22/18) Physical Therapy Treatment Note M2 PT-IP Current Condition Start: 03/28/18 17:17 Freq: NEEDED Status: Active Protocol: Document 04/21/18 15:24 AB (Rec: 04/21/18 15:31 AB [id number]) Physical Therapy Current Condition Current Condition Evaluation Date 03/28/18 Treatment Diagnosis post-op colectomy for perforated bowel Onset Date 03/22/18 Precautions Abdominal Surgery Precautions Log Roll Lifting Restrictions Gait Belt above Incisional Area Other Precautions open abdominal incision with wet to dry dressings and new ileostomy M3 PT-IP Subjective Start: 03/28/18 17:17 Freq: NEEDED Status: Active Protocol: Document 04/21/18 15:24 AB (Rec: 04/21/18 15:31 AB [id number]) Subjective Physical Therapy Visit Type Type Treatment Note Visit Start Time 15:00 Visit Stop Time 15:22 Total Visit Minutes 22 Number of SUPERVISOR METALIZING Visits 0 Physical Therapy Visit Comments Patient Comments pt agreeable to do therapy M4 PT-IP Mobility and Gait Start: 03/28/18 17:17 Freq: NEEDED Status: Active Protocol: Document 04/21/18 15:24 AB (Rec: 04/21/18 15:31 AB [id number]) PT-Bed Mobility Assessment Supine to Sit Supine to Sit Standby Assistance Head of Bed Elevated PT-Transfer Assessment Sit to and From Stand Sit to and from Stand Standby Assistance Gait Assessment Gait Gait Assistance Required: Standby Assistance Distance (Feet) (feet) 500 Assistive Devices Assistive Device Gait Belt Front Wheeled Walker Orthotic/Prosthetic Devices or Brace: No Factors Limiting Gait Function Factors Limiting Gait Function Decreased Activity Tolerance Poor Balance Comments Gait Comments pt ambulated 500 ft x 2 using 4WW SBA. pt with one seated rest break. Pt initially agreed to ambulate using a SPC short distances in room but after ambulateion using 4WW, stated that he is tired and just want to do SPC training tomorrow. M5 PT-IP Objective Assessments Start: 03/28/18 17:17 Freq: NEEDED Status: Active Protocol: Document 03/28/18 17:17 AB (Rec: 03/28/18 17:27 AB [id number]) Orientation Orientation/Cognition Level of Alertness Alert Orientation Name Situation Strength Lower Extremity Strength Assessment Bilaterally Impaired Hip 3+/5 Knee 3/5 Ankle 3+/5 M6 PT-IP Treatment Start: 03/28/18 17:17 Freq: NEEDED Status: Active Protocol: Document 04/20/18 13:04 CLB (Rec: 04/20/18 13:37 CLB [email or web address]) Physical Therapy Treatment Exercises Exercises Gluteal Sets Quad Sets Heel Slides M7 PT-IP Assessment and Plan Start: 03/28/18 17:17 Freq: NEEDED Status: Active Protocol: Document 04/21/18 15:24 AB (Rec: 04/21/18 15:31 AB [id number]) PT Summary Assessment and Plan Potential Rehabilitation Potential Good Summary Impairments Strength Balance Bed Mobility Transfers Gait Activity Tolerance Progress Towards Goals Progressing Toward Goals Assessment Summary pt progressing well with mobility but continues to have decrease activity tolerance and strength affecting function. pt stated that he is going home tomorrow. pt will require homehealth PT. Goals Bed Mobility Goal Independent Transfer Goal Independent Gait Goal Independent Days to Meet Goals 3 Frequency of Treatment Frequency Of Treatment Once a Day Treatment Plan Physical Therapy Treatment Plan Gait Training Therapeutic Exercise Balance Retraining Discharge Planning Other Recommendations and Next Treatment ambulation with SPC Focus Recommendations To Nursing Amount of Assist Needed 1 Person Assist Discharge Recommendations PT Discharge Recommendations Home with Assistance Home Health
[2018-04-21 15:51] VITALS: BP 114/76; PULSE 116; RESP 16; TEMP 36.8; O2SAT 98
[2018-04-21] MEDS: WARFARIN 7.5 MG TABLET PO (17:00)
[2018-04-21] MEDS: TOBRA/DEX 0.3%/0.1% OPHTH OINT 1 APPLIC EYE-RIGHT ×2 (17:15→21:34)
--- NOTE | 2018-04-21 18:11 | P.PN_ITS ---
Subjective Date Patient Seen: 04/21/18 Time Patient Seen: 18:04 Interval history: Patient states his appetite is slowly improving. However, he feels early satiety with most meals. Pain is minimal. Ambulating with physical therapy. Looking forward to discharge to home tomorrow. Exam Vital Signs (past 8 hours): Vital Signs - 8 hr 3 04/21/18 15:51 Temperature 98.2 F Pulse Rate 116 H Respiratory Rate 16 Blood Pressure 114/76 Pulse Oximetry 98 Pulse Oximetry 98 Fraction of Inspired Oxygen 30 Oxygen Delivery Method Room Air Oxygen Flow Rate 0 Narrative Exam Narrative: Thin male lying comfortably in bed in no acute distress. Alert oriented x3. He is in better spirits since I last saw him. Remains afebrile but still tachycardic. Right eye shows some mild sclera edema but no drainage. Minimal periorbital swelling. No jaundice Chest clear to auscultation with regular rhythm but tachycardic. Abdomen is soft and nondistended. He is minimally tender to palpation. Incision is granulating nicely. I personally changes wet-to-dry saline dressing this evening. No evidence of fistula. Ileostomy is pink and viable with normal stool output in the appliance including flatus. Extremities show no clubbing or cyanosis. No edema. Objective Labs Result Diagrams: 04/21/18 05:16 04/21/18 05:16 Labs: Laboratory Results - last 24 hr 04/21/18 04/21/18 05:16 05:16 WBC 37.9 H* RBC 3.29 L Hgb 9.2 L Hct 28.1 L MCV 85.7 MCH 27.9 MCHC 32.6 RDW 18.0 H Plt Count 1048 H* Neut % (Auto) Not Reportable Lymph % (Auto) Not Reportable [place] % (Auto) Not Reportable Eos % (Auto) Not Reportable Baso % (Auto) Not Reportable Seg Neutrophils % 72.0 H Band Neutrophils % 1.0 L Lymphocytes % (Manual) 18.0 L Monocytes % (Manual) 5.0 Eosinophils % (Manual) 1.0 L Basophils % (Manual) 1.0 Metamyelocytes % 1.0 H Myelocytes % 1.0 H RBC Morphology Not Reportable Hypochromasia 1+ H Sodium 130 L Potassium 3.9 Chloride 93 L Carbon Dioxide 26 BUN 13 Creatinine 0.40 L Estimated GFR > 60.0 BUN/Creatinine Ratio 32.5 H Glucose 167 H Calcium 8.5 Assessment & Plan Plan: Plan: 43-year-old male now nearly 1 month status post hospitalization for acute flare up of ulcerative colitis resulting in perforation necessitating urgent subtotal colectomy with ileostomy complicated by sepsis, aspiration pneumonia, severe protein calorie malnutrition, acute respiratory failure, pulmonary embolism, anemia, leukocytosis possibly consistent with leukemoid reaction, and prolonged postoperative ileus now resolved. His nutritional status remains compromised but slowly improving appetite with oral intake as well. Remains on overnight TPN which he will continue to receive discharge. Continue twice daily normal saline wet-to-dry dressing changes. Maintain warfarin for at least 90 days. Continue physical therapy, speech therapy, and occupational therapy for better mobility and strengthening. Following discharge she will be seen next week in the surgery clinic. I discussed all the above with him in detail. All questions were answered to his satisfaction, and he voiced understanding. Quality VTE Deep Vein Thrombosis/Pulmonary Embolism Present on Admission: Yes
[2018-04-21] MEDS: [UNRECOGNIZED DRUG - OTHER] IV (18:35)
[2018-04-21] MEDS: DEXT IV (18:35)
[2018-04-21] MEDS: MULTIVITAMIN IV (18:35)
[2018-04-21] MEDS: LYTES IV (18:35)
[2018-04-21] MEDS: TRACE ELEMENTS IV (18:35)
[2018-04-21] MEDS: CALCIUM IV (18:35)
[2018-04-21] MEDS: FAT EMULSIONS 50 GM/250 ML EMULSION IV (18:37)
[2018-04-21] MEDS: LORazepam 2 MG/ML SYRINGE 1 MG IV (22:23)
[2018-04-21 23:54] VITALS: BP 118/78; PULSE 118; RESP 18; TEMP 36.6; O2SAT 99
[2018-04-22 05:51] LABS: INR 2.2 (0.9-1.3); Prothrombin Time 23.5 SECONDS (10.1-12.7)
[2018-04-22 05:57] LABS: Hematocrit 27.2 % (41-53); Mean Corpuscular HGB Conc 33.1 % (30-36); Mean Corpuscular Hemoglobin 28.4 PG (26-34); Mean Corpuscular Volume 85.9 fL (80-100); Red Blood Cell Count 3.16 X10^6/uL (4.5-5.9); Red Cell Distribution Width 17.9 % (11.6-14.8)
[2018-04-22 06:02] LABS: Platelet Count 960 X10^3/uL (150-400); White Blood Cell Count 36.2 X10^3/uL (4.5-11.0)
[2018-04-22 06:03] LABS: Add Manual Diff / Slide Review YES
[2018-04-22 06:07] LABS: Blood Urea Nitrogen 16 mg/dL (9-20); Calcium 8.5 mg/dL (8.4-10.2); Carbon Dioxide 26 mmol/L (22-32); Chloride 94 mmol/L (98-107); Estimated Glomerular Filt Rate > 60.0 mL/min (>60); Glucose 166 mg/dL (70-100); HEMOLYSIS 15 (0-50); Potassium 3.9 mmol/L (3.4-5.1); Sodium 132 mmol/L (137-145)
[2018-04-22] MEDS: INSULIN ASPART 100 UNIT/ML INSULN PEN SUBCUT (06:19)
[2018-04-22] MEDS: SODIUM CHLORIDE 0.9% FLUSH 10 ML IV ×2 (06:28→08:32)
[2018-04-22 06:53] LABS: Neutrophils Absolute Manual 30408 /uL (3000-5900); Total Cells Counted 100
[2018-04-22 06:54] LABS: Anisocytosis 1+
[2018-04-22 06:57] LABS: Hypochromasia 1+; Polychromasia 1+
[2018-04-22 06:59] LABS: Platelet Morphology Comment P
[2018-04-22 07:50] VITALS: BP 106/71; PULSE 108; RESP 18; TEMP 36.3; O2SAT 100
[2018-04-22] MEDS: SERTRALINE 50 MG TABLET 100 MG PO (08:30)
[2018-04-22] MEDS: MEGESTROL SUSP 400 MG/10 ML UDC PO (08:30)
[2018-04-22] MEDS: ARIPiprazole 10 MG TABLET 5 MG PO (08:30)
[2018-04-22] MEDS: ASPIRIN EC 325 MG TABLET PO (08:31)
[2018-04-22] MEDS: MULTIVIT,CALC,MINS/IRON/FOLIC 1 TABLET 1 TAB PO (08:31)
[2018-04-22] MEDS: TOBRA/DEX 0.3%/0.1% OPHTH OINT 1 APPLIC EYE-RIGHT (08:32)
[2018-04-22] MEDS: DRONABINOL 2.5 MG CAPSULE PO (08:34)
--- NOTE | 2018-04-22 10:38 | PT.IPTN ---
Current Diagnoses Sepsis, unspecified organism (03/22/18) Hypocalcemia (03/22/18) Hypokalemia (03/22/18) Major depressive disorder, single episode, unspecified (03/22/18) Other pulmonary embolism without acute cor pulmonale (03/22/18) Chronic pulmonary edema (03/22/18) Acute postprocedural respiratory failure (03/22/18) Ulcerative colitis, unspecified, without complications (03/22/18) Perforation of intestine (nontraumatic) (03/22/18) Shortness of breath (03/22/18) Severe sepsis with septic shock (03/22/18) Physical Therapy Treatment Note M2 PT-IP Current Condition Start: 03/28/18 17:17 Freq: NEEDED Status: Active Protocol: Document 04/21/18 15:24 AB (Rec: 04/21/18 15:31 AB [id number]) Physical Therapy Current Condition Current Condition Evaluation Date 03/28/18 Treatment Diagnosis post-op colectomy for perforated bowel Onset Date 03/22/18 Precautions Abdominal Surgery Precautions Log Roll Lifting Restrictions Gait Belt above Incisional Area Other Precautions open abdominal incision with wet to dry dressings and new ileostomy M3 PT-IP Subjective Start: 03/28/18 17:17 Freq: NEEDED Status: Active Protocol: Document 04/22/18 09:15 GGD (Rec: 04/22/18 10:33 GGD [id number]) Subjective Physical Therapy Visit Type Type Treatment Note Visit Start Time 09:00 Visit Stop Time 09:15 Total Visit Minutes 15 Number of SHIP ENGINES OPERATING ENGINEER Visits 1 Physical Therapy Visit Comments Patient Comments Pt willing to walk with cane. M4 PT-IP Mobility and Gait Start: 03/28/18 17:17 Freq: NEEDED Status: Active Protocol: Document 04/22/18 09:15 GGD (Rec: 04/22/18 10:33 GGD [id number]) PT-Bed Mobility Assessment Rolling Type of Rolling Log Rolling Level of Assist Independent Supine to Sit Supine to Sit Standby Assistance Head of Bed Elevated Sit to Supine Sit to Supine Standby Assistance PT-Transfer Assessment Sit to and From Stand Sit to and from Stand Standby Assistance Gait Assessment Gait Gait Assistance Required: Standby Assistance Distance (Feet) (feet) 80 Assistive Devices Assistive Device Gait Belt Straight Cane Factors Limiting Gait Function Factors Limiting Gait Function Decreased Activity Tolerance Decreased Strength M5 PT-IP Objective Assessments Start: 03/28/18 17:17 Freq: NEEDED Status: Active Protocol: Document 03/28/18 17:17 AB (Rec: 03/28/18 17:27 AB [id number]) Orientation Orientation/Cognition Level of Alertness Alert Orientation Name Situation Strength Lower Extremity Strength Assessment Bilaterally Impaired Hip 3+/5 Knee 3/5 Ankle 3+/5 M6 PT-IP Treatment Start: 03/28/18 17:17 Freq: NEEDED Status: Active Protocol: Document 04/20/18 13:04 CLB (Rec: 04/20/18 13:37 CLB [email or web address]) Physical Therapy Treatment Exercises Exercises Gluteal Sets Quad Sets Heel Slides M7 PT-IP Assessment and Plan Start: 03/28/18 17:17 Freq: NEEDED Status: Active Protocol: Document 04/22/18 09:15 GGD (Rec: 04/22/18 10:33 GGD [id number]) PT Summary Assessment and Plan Summary Assessment Summary Pt improving with mobility. He had one mild LOB during gait, but was able to self steady. Frequency of Treatment Frequency Of Treatment Once a Day Treatment Plan Physical Therapy Treatment Plan Gait Training Therapeutic Exercise Balance Retraining Discharge Planning Other Recommendations and Next Treatment ambulation with SPC Focus Recommendations To Nursing Amount of Assist Needed 1 Person Assist Discharge Recommendations PT Discharge Recommendations Home with Assistance Home Health
[2018-04-22 12:30] VITALS: BP 109/71; PULSE 100; RESP 16; TEMP 36.5; O2SAT 99
--- NOTE | 2018-04-22 13:26 | P.DS_ITS ---
History of Present Illness Date Patient Seen: 04/22/18 Time Patient Seen: 10:25 Chief complaint: Acute Hyponatremia, Acute Anemia, Acute Hypocalcem Narrative: Mr. Morales is a 43-year-old man with a history of ulcerative colitis who presented to [facility] Emergency Room on the 21 of March with severe weakness and frequent diarrhea. He has a history of ulcerative colitis that was diagnosed about 6 years ago. He was treated with Remicade and was stable until May of 2017 when he ran out of his insurance coverage and was off Remicade. He stated having flare-ups of his symptoms about 2 months prior to this admission. He was having frequent loose stools up to 5 to 6 times a day. He also had bloody stools in January of 2018. He was hospitalized in [place] for about 18 days for ulcerative colitis flare-up. He was treated with oral prednisone and was started on Humira. He he really seemed 3 doses of Humira so far. His last dose was 2 days prior to admission. He continued to have frequent loose stools and was getting progressively weak. He has lost about 35 lb in the last month. He was found to have a sodium of 122 and appeared to be dehydrated. He was admitted to the medicine floor for ulcerative colitis, dehydration and electrolyte abnormality. Discharge Providers Date of admission: 03/22/18 00:25 Primary care physician: Alka Martinez MD Consults: 03/23/18 20:40 Consult to Document Manager Routine Comment: support needs 03/28/18 14:03 Consult to Physical Therapy Evaluate & Treat Comment: limited mobility after colectomy with malnutrition Physician Instructions: Evaluate and Treat 03/30/18 09:00 Consult to Discharge Planning Routine Comment: Assess for SNF versus HH. Wound VAC, PT/OT 04/04/18 14:38 Consult to Speech Therapy Evaluate & Treat Comment: Physical therapy reports choking while drinking Physician Instructions: Evaluate and treat 04/04/18 15:38 Consult to Discharge Planning Routine Comment: Poss need of HH for ostomy, lovenox, dressing mittal 04/07/18 13:25 Consult to Occupational Therapy Evaluate & Treat Comment: d/c needs Physician Instructions: Evaluate and treat 04/08/18 08:56 Consult to Dietitian, Adult Routine Comment: Reason For Exam: TPN. Ileostomy. Refusal to eat r/t depression 04/10/18 08:16 Consult to Physician Routine Comment: Consulting Provider: Selvin Finney Reason for consultation: Depression, psych eval Has provider been notified: Yes 04/13/18 13:43 Consult to Oncology Routine Comment: Consulting Provider: Cruz Peguero Reason for consultation: Leukocytois and thrombocytosis Has provider been notified: Yes 04/16/18 09:39 Consult to Dietitian, Adult Routine Comment: Reason For Exam: Needing calorie count 04/21/18 13:51 Consult to Home Health Routine Comment: Reason For Exam: Home health RN, PT, OT, ST at discharge Discharge provider: PHUONG García Summary Discharge Diagnosis: 1. Acute abdomen, bowel perforation 2. Acute pulmonary embolism 3. Aspiration pneumonia 4. Septic shock 5. Protein and calorie malnutrition 6. Depression 7. Conjunctivitis Hospital Course: In the early days of admit his admission, he presented with increasing abdominal pain and distention. He was also noted to be tachycardic heart rate 130 as his blood pressure was dropping to systolic in the low 100s, elevated white count, and fever. He received 2 units of packed red blood cells on admission for acute on chronic blood loss anemia. He was also treated with IV fluids Levaquin and Flagyl but did not require vasopressin drips to maintain blood pressure. Abdominal CT consistent with findings for bowel perforation. Patient was subsequently taken to the operating room for emergent laparotomy for perforated viscus. Multiple for perforations noted throughout the entire transverse colon and splenic fracture. Ileostomy performed. On 03 Apr 2018 patient developed shortness of breath CT revealed pulmonary embolism. Was managed appropriately with anticoagulants. Patient also developed postoperative aspiration pneumonia. He was treated with Tygacil and metronidazole through April 05, 2018. His state of malnutrition has been managed with TPN. Currently he is on night TPN infusions from 6:00 p.m. to 6:00 a.m.. Appetite has improved slowly. He will go home with nightly TPN. He has also been seen in the past for chronic history of moderate leukocytosis white blood cell count. On this admission was as high as 46.7., and platelets of 1304. He will be followed as an outpatient with Oncology. He is currently clinically stable status post perforated bowel, pulmonary embolism, and no further aspiration pneumonia is apparent, improvement in his depression has been noted since an increase in his antidepressive medications. He has remained afebrile, remains slightly tachycardic at a pulse rate of 102-106. But is hemodynamically stable. In the past week, the patient also developed right eye irritation redness and swelling. Minimal clear to yellow discharge noted. Treated with the Erythromycin ointment with no improvement. The right eye was then cultured. And he was started on TobraDex. Preliminary culture results revealed Staph aureus. Sensitivity pending. If no improvement in the next 5 days patient should be seen by Ophthalmology. Patient will also be followed up with Oncology as an outpatient as well as surgery and Internal Medicine. He will also have home health nurse support. Home health will draw INR on Friday the 27 of April. [facility] will manage, in conjunction with pharmacy , the TPN orders. Status at Discharge Functional status at discharge: uses cane/walker Overall status at discharge: patient is not back to baseline Time Spent with Patient Greater than 30 minutes Exam Vital Signs (past 8 hours): Vital Signs - 8 hr 3 04/22/18 07:50 Temperature 97.3 F L Pulse Rate 108 H Respiratory Rate 18 Blood Pressure 106/71 Pulse Oximetry 100 Pulse Oximetry 100 Fraction of Inspired Oxygen 30 Oxygen Delivery Method Room Air Oxygen Flow Rate 0 Narrative Exam Narrative: Exam Narrative: Const General: cooperative and comfortable Nutritional Appearance: malnourished and underweight Orientation: alert, awake and oriented x3 HENMT Head: normal to inspection Ears: hearing grossly normal bilaterally Nose: external nose normal Face and sinus: normal facial exam Mouth: oral mucosa abnormal (Dry mucus membranes) Eyes Conjunctivae: conjunctival abnormality right conjunctival injection, reddened. Minimal clear to yellow drainage.Slight improvement since yesterday. Pupils: PERRL Neck Neck: normal visual inspection Chest Chest: normal inspection of the chest Resp Effort & Inspection: normal respiratory effort and able to speak in complete sentences Auscultation: clear to auscultation bilaterally Cardio Rate: tachycardic Rhythm: regular rhythm Heart Sounds: S1 normal and S2 normal GI Palpation: soft Auscultation: normal bowel sounds Other: Ostomy has brown soft/liquid stool. Other: bladder not distended. Neuro General: alert, awake, oriented x3 and moves all extremities Cognition: normal cognition Speech: speech normal Motor: muscle tone normal throughout Extrem General: normal to inspection Right upper extremity: normal to inspection Left upper extremity: normal to inspection Psych Mental Status: mental status grossly normal Affect: normal affect Attitude: cooperative Thought Process: normal Thought Content: normal Objective Labs Result Diagrams: 04/22/18 05:17 04/22/18 05:17 Labs: Laboratory Results - last 24 hr 04/14/18 04/22/18 04/22/18 21:00 05:17 05:17 WBC 36.2 H* RBC 3.16 L Hgb 9.0 L Hct 27.2 L MCV 85.9 MCH 28.4 MCHC 33.1 RDW 17.9 H Plt Count 960 H* Neut % (Auto) Not Reportable Lymph % (Auto) Not Reportable Nash % (Auto) Not Reportable Eos % (Auto) Not Reportable Baso % (Auto) Not Reportable Total Counted 100 Seg Neutrophils % 78.0 H Band Neutrophils % 6.0 Lymphocytes % (Manual) 8.0 L Atypical Lymphs % 1.0 H Monocytes % (Manual) 5.0 Metamyelocytes % 1.0 H Myelocytes % 1.0 H Neutrophils # (Manual) 11319 H Plt Morphology Comment P RBC Morphology Not Reportable Polychromasia 1+ H Hypochromasia 1+ H Anisocytosis 1+ H PT 23.5 H D INR 2.2 H Sodium Potassium Chloride Carbon Dioxide BUN Creatinine Estimated GFR BUN/Creatinine Ratio Glucose Calcium Ref Test (Refrig) 04/22/18 05:17 WBC RBC Hgb Hct MCV MCH MCHC RDW Plt Count Neut % (Auto) Lymph % (Auto) Nash % (Auto) Eos % (Auto) Baso % (Auto) Total Counted Seg Neutrophils % Band Neutrophils % Lymphocytes % (Manual) Atypical Lymphs % Monocytes % (Manual) Metamyelocytes % Myelocytes % Neutrophils # (Manual) Plt Morphology Comment RBC Morphology Polychromasia Hypochromasia Anisocytosis PT INR Sodium 132 L Potassium 3.9 Chloride 94 L Carbon Dioxide 26 BUN 16 Creatinine 0.40 L Estimated GFR > 60.0 BUN/Creatinine Ratio 40.0 H Glucose 166 H Calcium 8.5 Ref Test (Refrig) Discharge Plan Discharge Plan Patient Disposition: Home Health Service Discharge comment: Patient is discharged to home with [facility] home TPN. Pharmacy to manage TPN. Patient will also need INR drawn on Friday. This can be arranged with home health nurse. Discharge Med Rec/Prescriptions Prescriptions: New warfarin [Coumadin] 7.5 mg Tablet 7.5 mg PO 1700 Qty: 30 RF: 0 tobramycin-dexamethasone [TobraDex] 0.3-0.1 % Ointment 1 applic EYE-RIGHT QID Qty: 1 RF: 1 hydrocortisone 1 % Cream 1 applic Topical TID PRN (Reason: Itching) Qty: 1 RF: 2 sertraline [Zoloft] 50 mg Tablet 100 mg PO DAILY Qty: 30 RF: 4 hqpbfobk-fqfd-ZU-calcium-mins [Thera M Plus (ferrous fumarat)] 9 mg iron-400 mcg Tablet 1 tab PO DAILY Qty: 90 RF: 3 Continue aripiprazole 5 mg Tablet 5 mg PO DAILY RF: 0 Discontinued pantoprazole 40 mg Tablet,Delayed Release (Dr/Ec) 40 mg PO DAILY RF: 0 ferrous sulfate 325 mg (65 mg iron) Tablet 325 mg PO DAILY RF: 0 mercaptopurine 50 mg Tablet 50 mg PO DAILY RF: 0 zolpidem 5 mg Tablet 5 mg PO BEDTIME PRN (Reason: Insomnia) RF: 0 sertraline 50 mg Tablet 50 mg PO DAILY RF: 0 adalimumab pen injector See Label Instructions .ROUTE .COMPLEX RF: 0 Follow up/Referrals: Bruce Haley MD [Physician] - 1 Week (follow up fridayapril 29 @130 for a 2pm appt) Alka Martinez MD [Primary Care Provider] - 1 Week (pt will need to calll and shedule appt. ) Provider Discharge Instructions Diet: Diet as Tolerated Diet comment: Patient will also receive TPN at night. Calorie count encouraged. Activity: Up ad guevara. Encourage ambulation with cane and/or walker. Oxygen: Room air Other treatments: Daily weights Wound Care Report to your healthcare provider any signs of infection, such as:: chills, fever, night sweats, increased pain and unusual drainage Dressing: Midline abdominal dressing needs to be changed wet-to-dry dressing 2 times per day. Patient and his mother both understand and demonstrated how to change abdominal dressing. Other wound treatment: Colostomy care as needed. Both patient and his mother have been instructed and demonstrated understanding of how to colostomy Visit Report/Discharge Packet Instructions: How to Care for Your Colostomy or Ileostomy, How to Care for a Surgical Wound, Calorie-Counting Diet, How to Change a Wet-to-dry Wound Dressing Visit Report Forms: Stroke Signs & Symptoms Discharge Data Primary Care Provider: Alka Martinez Attending Provider: Alka Martinez Admit Date/Time: 03/22/18 00:25 Quality VTE Deep Vein Thrombosis/Pulmonary Embolism Present on Admission: Yes
--- NOTE | 2018-04-22 14:21 | PC.NURSE ---
discharge instructions and prescriptions reviewed with pt and his mother. His mom demonstated correct wet to dry dressing change. belonging and meds given to his mom. pt discharged via wheelchair.
--- NOTE | 2018-04-22 16:04 | CM.DPC ---
DCP: continued: Case again received and met with pt product marketing consultant. He was found very alert, smiling, expressed that he was very happy to be able to go home today. Worked on and off until d/c to coordinate the details of pt's d/c plan. Sent final d/c paperwork to [facility] and [facility] and discussed specifics with the RN going out today for [facility] (will see pt at home at 1530) and with [facility]. Coordinated the d/c orders with hospitalist PHUONG Maravilla and Dr. Cedillo. market research specialist Paola Moon came in about 1230 and went over all ostomy issues with pt and his mother. Pt confirmed that he wishes to manage this himself at home and that he feels comfortable with same. He will be following up with Paola at the [facility]. Paola confirmed he had the initial supplies needed and she would discuss further options at he cllinic visit. Pt also had wound care supplies for the next couple days and [facility] Rn will be following for this. Pt is hopeful that he will not be homebound for long. Enouraged pt to followup with a mental health counselor as per recommendation by Dr. Finney. Chiquita is hopeful that [facility] will follow as PCP clinic even when Dr. Newton is know longer there. She plans to discuss same with clinic. Pt did leave as planned with [facility] staff members cheering him on.
== END 2018-04-22 14:25 | disposition home health service (06) | DRG 329 ==
LOC: ICU 04-01 08:05 → AC 04-02 10:54
PROVIDERS: Internal Medicine; Internal Medicine Hematology & Oncology; Nurse Practitioner Acute Care; Specialist; Surgery; Admitting Provider Internal Medicine; Emergency Provider Emergency Medicine; PCP Internal Medicine; Visit Provider Internal Medicine
DX: K51.818 Other ulcerative colitis with other complication (principal); E43 Unspecified severe protein-calorie malnutrition; K65.9 Peritonitis, unspecified; K63.1 Perforation of intestine (nontraumatic); I26.99 Other pulmonary embolism without acute cor pulmonale; J96.01 Acute respiratory failure with hypoxia; J81.0 Acute pulmonary edema; A41.9 Sepsis, unspecified organism; J69.0 Pneumonitis due to inhalation of food and vomit; R65.21 Severe sepsis with septic shock; D62 Acute posthemorrhagic anemia; Z68.1 Body mass index [BMI] 19.9 or less, adult; E87.1 Hypo-osmolality and hyponatremia; K59.31 Toxic megacolon; K56.7 Ileus, unspecified; D64.89 Other specified anemias; E86.0 Dehydration; E83.51 Hypocalcemia; R73.9 Hyperglycemia, unspecified; T38.0X5A Adverse effect of glucocorticoids and synthetic analogues, initial encounter; F32.9 Major depressive disorder, single episode, unspecified; R09.02 Hypoxemia; R00.0 Tachycardia, unspecified; D72.829 Elevated white blood cell count, unspecified; R13.10 Dysphagia, unspecified; H10.021 Other mucopurulent conjunctivitis, right eye; Z91.19 Patient's noncompliance with other medical treatment and regimen; R79.89 Other specified abnormal findings of blood chemistry
CPT/HCPCS: 36415; 36430; 36569; 36591; 36600; 71010; 71045; 71275; 74018; 74174; 74177; 74230; 76705; 80048; 80053; 80076; 80170; 81003; 81015; 81270; 82150; 82533; 82607; 82728; 82746; 82805; 82962; 83540; 83550; 83605; 83615; 83690; 83735; 84100; 84134; 84145; 84443; 84550; 85014; 85018; 85025; 85610; 86644; 86850; 86870; 86900; 86901; 86902; 86906; 86922; 87070; 87077; 87086; 87186; 87205; 87252; 87493; 87507; 87797; 92526; 92610; 92611; 94002; 94003; 94010; 94640; 94760; 94762; 94770; 94799; 96361; 96374; 97110; 97116; 97162; 97166; 97530; 97535; 99058; 99205; 99215; 99284; P9016; C9113; J0610; J1450; J1642; J1650; J1940; J1956; J2060; J2250; J2270; J2274; J2405; J2704; J2765; J2920; J2930; J3010; J3243; J3475; J3480; J7613; Q9967

== ENCOUNTER → 2018-04-29 15:03 | Outpatient (CLI) | payer OTHER, MEDICAID, SELFPAY ==
[2018-03-27 09:40] VITALS: PULSE 121; RESP 22; O2SAT 97
[2018-04-29 15:43] LABS: Hematocrit 30.7 % (41-53); Hemoglobin 9.9 g/dL (13.5-17.5); Mean Corpuscular HGB Conc 32.2 % (30-36); Mean Corpuscular Hemoglobin 27.9 PG (26-34); Mean Corpuscular Volume 86.7 fL (80-100); Red Blood Cell Count 3.54 X10^6/uL (4.5-5.9); Red Cell Distribution Width 18.3 % (11.6-14.8)
[2018-04-29 16:09] LABS: Add Manual Diff / Slide Review YES; Platelet Count 1212 X10^3/uL (150-400); White Blood Cell Count 33.7 X10^3/uL (4.5-11.0)
[2018-04-29 16:10] LABS: Alanine Aminotransferase 101 IU/L (21-72); Albumin 3.6 g/dL (3.5-5.0); Albumin Globulin Ratio 0.7 (1.0-2.8); Alkaline Phosphatase 603 U/L (38-126); Aspartate Aminotransferase 60 IU/L (17-59); BUN Creatinine Ratio 47.5 (6-22); Bilirubin Total 0.3 mg/dL (0.2-1.3); Blood Urea Nitrogen 19 mg/dL (9-20); Carbon Dioxide 20 mmol/L (22-32); Chloride 101 mmol/L (98-107); Estimated Glomerular Filt Rate > 60.0 mL/min (>60); Globulin 5.1 g/dL (1.7-4.1); Glucose 103 mg/dL (70-100); HEMOLYSIS < 15 (0-50); Potassium 4.1 mmol/L (3.4-5.1); Sodium 139 mmol/L (137-145); Total Protein 8.7 g/dL (6.3-8.2)
[2018-04-29 16:25] LABS: Free T3, Triiodothyronine Free 3.98 pg/mL (2.77-5.27)
[2018-04-29 16:39] LABS: Thyroid Stimulating Hormone 1.62 uIU/mL (0.47-4.68)
[2018-04-29 17:57] LABS: Anisocytosis 2+; Neutrophils Absolute Manual 22916 /uL (3000-5900); Nucleated Red Blood Cells 2 #/Diff; Total Cells Counted 100
== END ==
PROVIDERS: Visit Provider Surgery
DX: K51.90 Ulcerative colitis, unspecified, without complications (principal)
CPT/HCPCS: 36415; 80053; 84443; 84481; 85025

== ENCOUNTER → 2018-05-20 15:34 | Outpatient (CLI) | payer OTHER, MEDICAID, SELFPAY ==
[2018-04-30 16:29] VITALS: PULSE 121; RESP 22; O2SAT 97
[2018-05-20 16:01] LABS: Add Manual Diff / Slide Review NO; Basophils Percent Auto 1.4 % (0-2); Eosinophils Percent Auto 3.3 % (2-4); Hematocrit 34.8 % (41-53); Lymphocytes Percent Auto 26.9 % (25-40); Mean Corpuscular HGB Conc 31.5 % (30-36); Mean Corpuscular Hemoglobin 28.3 PG (26-34); Mean Corpuscular Volume 89.8 fL (80-100); Monocytes Percent Auto 8.8 % (3-14); Neutrophils Absolute Auto 8700 /uL (3000-5900); Neutrophils Percent Auto 59.6 % (50-75); Red Blood Cell Count 3.88 X10^6/uL (4.5-5.9); Red Cell Distribution Width 20.4 % (11.6-14.8); White Blood Cell Count 14.5 X10^3/uL (4.5-11.0)
[2018-05-20 16:08] LABS: INR 1.3 (0.9-1.3); Prothrombin Time 14.3 SECONDS (10.1-12.7)
[2018-05-20 16:28] LABS: Alanine Aminotransferase 39 IU/L (21-72); Albumin 3.8 g/dL (3.5-5.0); Albumin Globulin Ratio 0.9 (1.0-2.8); Alkaline Phosphatase 164 U/L (38-126); Aspartate Aminotransferase 23 IU/L (17-59); BUN Creatinine Ratio 18.6 (6-22); Bilirubin Total 0.3 mg/dL (0.2-1.3); Blood Urea Nitrogen 13 mg/dL (9-20); Calcium 9.6 mg/dL (8.4-10.2); Carbon Dioxide 26 mmol/L (22-32); Chloride 101 mmol/L (98-107); Estimated Glomerular Filt Rate > 60.0 mL/min (>60); Globulin 4.1 g/dL (1.7-4.1); Glucose 87 mg/dL (70-100); HEMOLYSIS < 15 (0-50); Potassium 4.8 mmol/L (3.4-5.1); Sodium 140 mmol/L (137-145); Total Protein 7.9 g/dL (6.3-8.2)
[2018-05-20 16:40] LABS: Anisocytosis 1+; Platelet Count 778 X10^3/uL (150-400)
== END ==
PROVIDERS: PCP Internal Medicine; Visit Provider Surgery
DX: D64.9 Anemia, unspecified (principal); I26.99 Other pulmonary embolism without acute cor pulmonale; K91.2 Postsurgical malabsorption, not elsewhere classified
CPT/HCPCS: 36415; 80053; 85025; 85610

== ENCOUNTER → 2018-06-03 12:53 | Outpatient (CLI) | payer OTHER, MEDICAID, SELFPAY ==
[2018-04-30 16:29] VITALS: PULSE 121; RESP 22; O2SAT 97
[2018-06-03 14:16] LABS: Clostridium Difficile Tox PCR Negative for C. diff
== END ==
PROVIDERS: Visit Provider Surgery
DX: I26.99 Other pulmonary embolism without acute cor pulmonale (principal); R19.7 Diarrhea, unspecified
CPT/HCPCS: 36415; 85610; 87493

== ENCOUNTER → 2018-06-08 16:25 | Outpatient (CLI) | payer OTHER, MEDICAID, SELFPAY ==
[2018-04-30 16:29] VITALS: PULSE 121; RESP 22; O2SAT 97
[2018-06-08 18:14] LABS: INR 1.8 (0.9-1.3); Prothrombin Time 19.4 SECONDS (10.1-12.7)
== END ==
PROVIDERS: PCP Internal Medicine; Visit Provider Surgery
DX: I26.99 Other pulmonary embolism without acute cor pulmonale (principal)
CPT/HCPCS: 36415; 85610

== ENCOUNTER → 2019-05-18 13:49 | Outpatient (CLI) | payer OTHER, MEDICAID, SELFPAY ==
[2018-04-30 16:29] VITALS: PULSE 121; RESP 22; O2SAT 97
[2019-05-18 15:01] LABS: Add Manual Diff / Slide Review NO; Basophils Absolute Auto 100 /uL (0-100); Eosinophils Absolute Auto 1100 /uL (0-450); Eosinophils Percent Auto 10.5 % (2-4); Hematocrit 41.8 % (41-53); Hemoglobin 14.1 g/dL (13.5-17.5); Lymphocytes Absolute Auto 3100 /uL (1100-4500); Lymphocytes Percent Auto 30.6 % (25-40); Mean Corpuscular HGB Conc 33.7 % (30-36); Mean Corpuscular Hemoglobin 31.3 PG (26-34); Mean Corpuscular Volume 92.9 fL (80-100); Monocytes Absolute Auto 1200 /uL (0-900); Monocytes Percent Auto 11.9 % (3-14); Neutrophils Absolute Auto 4600 /uL (1500-7000); Platelet Count 615 X10^3/uL (150-400); Red Cell Distribution Width 14.5 % (11.6-14.8)
[2019-05-18 16:30] LABS: Alanine Aminotransferase 13 IU/L (21-72); Albumin 4.1 g/dL (3.5-5.0); Albumin Globulin Ratio 1.1 (1.0-2.8); Alkaline Phosphatase 213 U/L (38-126); Aspartate Aminotransferase 19 IU/L (17-59); BUN Creatinine Ratio 17.5 (6-22); Bilirubin Total 0.3 mg/dL (0.2-1.3); Blood Urea Nitrogen 14 mg/dL (9-20); Calcium 9.9 mg/dL (8.4-10.2); Carbon Dioxide 25 mmol/L (22-32); Chloride 105 mmol/L (98-107); Estimated Glomerular Filt Rate > 60.0 mL/min (>60); Globulin 3.7 g/dL (1.7-4.1); Glucose 140 mg/dL (70-100); HEMOLYSIS < 15 (0-50); Potassium 5.3 mmol/L (3.4-5.1); Sodium 140 mmol/L (137-145); Total Protein 7.8 g/dL (6.3-8.2)
== END ==
PROVIDERS: Visit Provider Internal Medicine Gastroenterology
DX: K51.90 Ulcerative colitis, unspecified, without complications (principal)
CPT/HCPCS: 36415; 80053; 85025

== ENCOUNTER 2020-01-24 12:37 | Emergency (ER) | payer OTHER, MEDICAID, SELFPAY ==
[2018-04-30 16:29] VITALS: PULSE 121; RESP 22; O2SAT 97
[2020-01-24 12:45] VITALS: BP 128/73; PULSE 81; RESP 19; TEMP 36.9; O2SAT 100; BMI 25.5
--- NOTE | 2020-01-24 12:54 | DI.US.S_ITS ---
PROCEDURE: US SCROTUM INDICATIONS: RIGHT SCROTAL WALL MASS; ? ABSCESS TECHNIQUE: Real-time scanning was performed of the scrotum and testicles, with image documentation. Color and pulse Doppler interrogation was performed of both testicles. COMPARISON: None. FINDINGS: Right: Testicle is normal in size at 4.1 x 1.8 x 2.6 cm, and homogenous in echotexture. Epididymis is normal in overall size and morphology. No hydrocele or varicoceles. Overlying scrotal skin is normal in thickness. However, there is a hypoechoic heterogeneous structure demonstrating peripheral increased vascularity without central internal vascularity involving the wall of the scrotum, which is suspicious for a small abscess. Left: Testicle is normal in size at 4.4 x 2.0 x 2.7 cm, and homogeneous in echotexture. Epididymis is normal in overall size and morphology. No hydrocele or varicoceles. Overlying scrotal skin is normal in thickness. Doppler: Color and pulse Doppler demonstrate normal and symmetric arterial flow in both testicles. IMPRESSION: 1. No evidence of testicular torsion, testicular mass, or epididymal orchitis. 2. Small subcutaneous abscess of the right scrotum is of uncertain etiology or origin. Dictated by: Inocencio Reagan M.D. on 01/24/2020 at 13:02 Approved by: Inocencio Reagan M.D. on 01/24/2020 at 13:05
--- NOTE | 2020-01-24 12:54 | ED_ITS ---
HPI - General Adult General Chief complaint: Urogenital-Male Stated complaint: something growing on scrotum Time Seen by Provider: 01/24/20 12:49 Source: patient Mode of arrival: Ambulatory Limitations: no limitations History of Present Illness HPI narrative: Patient is a 45-year-old male here for evaluation of a mass on his right scrotum. States that it has been there for the past several days but worsening over the past 24-48 hours. No fevers. He states that it has drained in the past but not currently draining. Had a distant history of STDs. Not currently concerned about any STDs. Has had a vasectomy in the past which caused an infection but that was many years ago. Related Data Previous Rx's Medication Instructions Recorded hydrocortisone 1 applic TOPICAL TID PRN #1 ea 04/22/18 ppqnnqem-cxuz-SW-calcium-mins 1 tab PO DAILY #90 tab 04/22/18 [Thera M Plus (ferrous fumarat)] sertraline [Zoloft] 100 mg PO DAILY #30 tab 04/22/18 omeprazole magnesium 20 mg 20 mg PO DAILY #90 cap 04/29/18 capsule,delayed release warfarin 10 mg tablet 10 mg PO DAILY #30 tab 06/03/18 acetaminophen-codeine 1 tab PO Q4-6H PRN #10 tab 01/24/20 [Tylenol-Codeine #3] sulfamethoxazole-trimethoprim 1 tab PO BID 7 Days #14 tab 01/24/20 [Bactrim DS] Allergies Allergy/AdvReac Type Severity Reaction Status Date / Time Penicillins [PENICILLINS] Allergy Unknown Verified 11/30/18 13:47 Review of Systems Constitutional Constitutional: Denies fever(s) Genitourinary Genitourinary: Denies dysuria and Reports scrotal swelling Comments: Mass on the scrotum Integumentary/Breasts Comments: Thickening and pain in the right side of scrotum no redness Hematologic/Lymphatic Hematologic/Lymphatic: Denies easy bleeding and Denies easy bruising Patient History Medical History ADHD (Chronic) Colostomy in place (Chronic) Depression (Chronic) Leukocytosis (Chronic) Ulcerative colitis (Chronic) Social History household members: family Smoking Status: Never smoker Smoking Status: Never smoker Exam Initial Vital Signs Initial Vital Signs: Vital Signs Temperature 98.4 F 01/24/20 12:45 Pulse Rate 81 01/24/20 12:45 Respiratory Rate 19 01/24/20 12:45 Blood Pressure 128/73 01/24/20 12:45 Pulse Oximetry 100 01/24/20 12:45 Const General: cooperative, healthy appearing and comfortable Resp Effort & Inspection: normal respiratory effort External: circumcised Penis: normal penis Other: Thickening to the scrotal skin right side. Testicle unremarkable. No hernia. Left side under Skin Other: Thickening with only minimal redness to the right scrotum Extrem General: capillary refill normal Procedures Abscess I/D I&D #1: Site: scrotum Side (if applicable): right Local Anesthetic: lidocaine 1% and with bicarb Amount of anesthesia used (mL): 5 Technique: needle aspiration and incised with #11 blade Irrigation: No Packing used?: none Course Orders Ordered: ED Orders 01/24/20 12:54 US scrotum Stat Discontinued Medications Lidocaine/Sodium Bicarbonate (Buffered Lidocaine 10 Ml Syr) 10 ml INJ NOW ONE Stop: 01/24/20 13:21 Last Admin: 01/24/20 13:26 Dose: 10 ml Documented by: FAM Vital Signs Vital signs: Vital Signs - 8 hr 01/24/20 12:45 Temperature 98.4 F Pulse Rate 81 Respiratory Rate 19 Blood Pressure 128/73 Pulse Oximetry 100 Medical Decision Making MDM Narrative Medical decision making narrative: Bedside ultrasound does show what appears to be a fluid pocket in the right scrotal skin. The right testicle is unremarkable. After discussion with the patient we opted to do an incision and drainage. Initially we did do a needle aspiration which returned purulent material. I then did feel that he was needed to make an incision which was done which returned even more purulent material. Patient tolerated procedure well. Given location will place on antibiotics. Patient was given return precautions and follow-up instructions. He expressed understanding and agreement. Discharge Plan Departure Patient Disposition: Home Clinical Impression: Scrotal abscess Instructions: DI for Incision and Drainage of a Skin Abscess, DI for Scrotal Abscess Activity Restrictions/Additional Instructions: Expect some draining from the area. Take the medications as directed. I recommend you contact her primary provider for follow-up. Return to the emergency department for any new or worsening symptoms Prescriptions: New acetaminophen-codeine [Tylenol-Codeine #3] 300-30 mg tablet 1 tab PO Q4-6H PRN (Reason: pain) Qty: 10 RF: 0 sulfamethoxazole-trimethoprim [Bactrim DS] 800-160 mg tablet 1 tab PO BID 7 Days Qty: 14 RF: 0 No Action warfarin 10 mg tablet 10 mg PO DAILY Qty: 30 RF: 0 omeprazole magnesium [[employer] (omeprazole)] 20 mg capsule,delayed release(DR/EC) 20 mg PO DAILY Qty: 90 RF: 1 hydrocortisone 1 % Cream 1 applic Topical TID PRN (Reason: Itching) Qty: 1 RF: 2 sertraline [Zoloft] 50 mg Tablet 100 mg PO DAILY Qty: 30 RF: 4 klkrvarh-wjtp-FT-calcium-mins [Thera M Plus (ferrous fumarat)] 9 mg iron-400 mcg Tablet 1 tab PO DAILY Qty: 90 RF: 3
[2020-01-24] MEDS: LIDO 1%/SOD BICARB 8.4% (10ML) 10 ML SYRINGE INJ (13:26)
[2020-01-24 14:22] VITALS: BP 114/73; PULSE 78; RESP 15; O2SAT 99
== END 2020-01-24 14:27 | disposition home or self-care (01) ==
PROVIDERS: Emergency Provider Emergency Medicine
DX: N49.2 Inflammatory disorders of scrotum (principal)
CPT/HCPCS: 10060; 76870; 99283

== ENCOUNTER → 2020-04-13 11:29 | Outpatient (CLI) | payer OTHER, MEDICAID, SELFPAY ==
[2018-04-30 16:29] VITALS: PULSE 121; RESP 22; O2SAT 97
[2020-04-13 12:16] LABS: Add Manual Diff / Slide Review NO; Basophils Absolute Auto 200 /uL (0-100); Basophils Percent Auto 1.1 % (0-2); Eosinophils Absolute Auto 500 /uL (0-450); Eosinophils Percent Auto 3.9 % (2-4); Hematocrit 45.7 % (41-53); Hemoglobin 15.3 g/dL (13.5-17.5); Lymphocytes Absolute Auto 3900 /uL (1100-4500); Lymphocytes Percent Auto 29.2 % (25-40); Mean Corpuscular HGB Conc 33.5 % (30-36); Mean Corpuscular Hemoglobin 31.1 PG (26-34); Mean Corpuscular Volume 92.9 fL (80-100); Monocytes Absolute Auto 1300 /uL (0-900); Monocytes Percent Auto 9.9 % (3-14); Neutrophils Absolute Auto 7400 /uL (1500-7000); Neutrophils Percent Auto 55.9 % (50-75); Platelet Count 496 X10^3/uL (150-400); Red Blood Cell Count 4.92 X10^6/uL (4.5-5.9); Red Cell Distribution Width 14.7 % (11.6-14.8); White Blood Cell Count 13.2 X10^3/uL (4.5-11.0)
[2020-04-13 12:32] LABS: Alanine Aminotransferase 22 IU/L (<50); Albumin 4.5 g/dL (3.5-5.0); Albumin Globulin Ratio 1.1 (1.0-2.8); Alkaline Phosphatase 144 U/L (38-126); Aspartate Aminotransferase 25 IU/L (17-59); BUN Creatinine Ratio 13.8 (6-22); Bilirubin Total 0.5 mg/dL (0.2-1.3); Blood Urea Nitrogen 13 mg/dL (9-20); Calcium 10.1 mg/dL (8.4-10.2); Carbon Dioxide 24 mmol/L (22-32); Chloride 106 mmol/L (98-107); Estimated Glomerular Filt Rate > 60.0 mL/min (>60); Gamma Glutamyl Transpeptidase 35 U/L (15-73); Globulin 4.1 g/dL (1.7-4.1); Glucose 79 mg/dL (70-100); HEMOLYSIS < 15 (0-50); Potassium 5.3 mmol/L (3.4-5.1); Sodium 140 mmol/L (137-145); Total Protein 8.6 g/dL (6.3-8.2)
== END ==
PROVIDERS: Referring Provider Internal Medicine Gastroenterology; Visit Provider Internal Medicine Gastroenterology
DX: K51.90 Ulcerative colitis, unspecified, without complications (principal)
CPT/HCPCS: 36415; 80053; 82977; 85025